=== PATIENT | female | born 1970 | race Asian ===

== ENCOUNTER 2024-03-04 10:25 | Outpatient (CLI) | payer BC, SELFPAY ==
--- NOTE | 2024-03-04 10:40 | ECG_ITS ---
Test Date: 2024-03-04 10:51:18 Measurements Intervals [place] Rate: 53 P: 43 VA: 144 QRS: 61 QRSD: 84 T: 56 QT: 415 QTc: 390 Interpretive Statements SINUS BRADYCARDIA MINIMAL VOLTAGE CRITERIA FOR LVH, CONSIDER NORMAL VARIANT [MEETS CRITERIA IN ONE OF: R(aVL), S(V1), R(V5), R(V5/V6)+S(V1)] No previous ECG available for comparison Electronically Signed On 03-05-2024 11:52:29 WARP SPLITTER by Tj Bojorquez M.D.
== END 2024-03-04 10:26 | disposition home or self-care (01) ==
LOC: ANHSURGERY 10:32
PROVIDERS: PCP Family Medicine; Visit Provider Obstetrics & Gynecology
DX: R94.31 Abnormal electrocardiogram [ECG] [EKG] (principal); I10 Essential (primary) hypertension
CPT/HCPCS: 93005

== ENCOUNTER 2024-03-08 00:26 | Day surgery (SDC) | payer BC, SELFPAY ==
--- NOTE | 2024-03-01 10:40 | PC.NURSE ---
Report to the Outpatient Waiting Room, entrance under the green pavilion located off [facility], at time _6 AM on date _03/08/24 . Planned Procedure Time: _7:30 AM .? Time changes happen often and if your time is changed the preop area will call you the afternoon before. - You and your visitor will be asked to self-screen and do not enter if you have any COVID symptoms. Please call surgeon if you need to reschedule. - A mask is optional within the hospital at this time. Patients may have clear liquids (water, carbonated beverages, clear teas, apple juice) until 3 hours prior to surgery (4:30 AM)with a maximum of 20 ounces. - No food from midnight until time of surgery and no smoking. This includes no chewing gum, candy or mints. - Take only the following medications with a SIP of water on the morning of surgery: __PROPRANOLOL DO NOT STOP ANY OF YOUR OTHER PRESCRIPTION MEDICATIONS PRIOR TO SURGERY EXCEPT THE FOLLOWING Medications to discontinue per physician ALL VITAMINS AND SUPPLEMENTS 3 DAYS PRE OP Date to take last dose____03/04/24 Please no make-up, nail danish, hairspray, perfume, deodorant, or body powder the day of surgery.? No jewelry (including any body piercings) or valuables the day of surgery, leave them at home.? Please take a shower or bath the night before, or the morning of, surgery with an antibacterial soap.? Wear comfortable, loose fitting clothing.? Children are encouraged to wear pajamas. - Jewelry must be removed prior to entering the operating room.? Rings and piercings that are not removed may be cut off. - The hospital will not accept responsibility for valuables.? - Please leave all valuables, including medications, at home the day of surgery. If you are going home after surgery, a licensed driver material handler must drive you home.? - NO public transportation without another adult if you receive anesthesia. - We recommend that an adult stay with you for 24 hours following discharge. - We also recommend that you do not drive, make important decision, drink alcoholic beverages, or take any drugs that were not prescribed by your health care provider for at least 24 hours after your discharge time. For Pediatric surgeries, we recommend two adults accompany the child home. Follow any additional instructions given to you from your surgeon. Telephone instructions given to __PATIENT and asked if any additional questions and then verbalized understanding. Patient advised to call surgeon office or pre surgery nurse liaison [phone] if any additional questions.
[2024-03-01 10:55] VITALS: BMI 24.7
[2024-03-08] VITALS (9 sets, daily range): BP systolic 125–177; BP diastolic 77–90; PULSE 51–79; RESP 12–18; TEMP 36.3; O2SAT 100
[2024-03-08] MEDS: LACTATED RINGERS 1,000 ML 30 ML IV CONT (06:16)
[2024-03-08] MEDS: KETOROLAC 15 MG/ML VIAL (*BKC) IV PUSH (06:58)
[2024-03-08] MEDS: ACETAMINOPHEN 500 MG TABLET 1000 MG PO (06:58)
--- NOTE | 2024-03-08 07:24 | WPDHPUPDATE1 ---
History and Physical Update Update Date/Time: 03/08/24 07:24 History and Physical has been reviewed, including an updated exam of the patient. There are NO changes in the patient's condition. Risks, benefits, and alternatives have been discussed and questions answered. Patient agrees to proceed with procedure.
--- NOTE | 2024-03-08 07:27 | P.HP_ITS ---
H&P: HPI History of Present Illness Date/Time: 03/08/24 07:27 Chief Complaint: History of breast cancer Narrative: this patient is a 53-year-old female with a history of breast cancer that is hormonally sensitive. We agreed to perform laparoscopic bilateral salpingo- oophorectomy. She understands ris The patient understands the details of the procedure. The procedure has been explained in detail. She understands the risks. She understands that injuries may occur that result in hospitalization, more surgery, and severe illness. She understands risk of hemorrhage and infection. She denies any chest pain or shortness of breath. She denies any nausea, vomiting, fever, chills. Review of Systems Review of Systems: All systems reviewed & are unremarkable except as noted in HPI and below Constitutional: Constitutional: Denies chills, Denies fatigue, Denies fever(s) and Denies weakness Eyes: Eyes: Denies blurry vision, Denies change in vision, Denies loss of peripheral vision, Denies loss of vision, Denies other visual disturbances and Denies eye pain ENT: Denies vertigo, Denies dizziness, Denies hearing loss, Denies mouth pain, Denies nasal obstruction, Denies neck mass and Denies neck pain Cardiovascular: Cardiovascular: Denies chest pain, Denies diaphoresis, Denies syncope, Denies leg edema and Denies dyspnea Respiratory: Respiratory: Denies chest congestion, Denies cough, Denies hemoptysis, Denies dyspnea and Denies wheezing Gastrointestinal: Gastrointestinal: Denies abdominal pain, Denies constipation, Denies diarrhea, Denies nausea and Denies vomiting Genitourinary: Genitourinary: Denies hematuria, Denies change in libido, Denies nocturia, Denies genital lesions, Denies flank pain and Denies urinary urgency Musculoskeletal: Musculoskeletal: Denies abnormal gait, Denies back pain, Denies myalgias, Denies arthralgias, Denies joint swelling, Denies muscle weakness and Denies neck pain Integumentary/Breasts: Skin/Breast: Denies swelling, Denies breast pain, Denies breast mass, Denies dry skin, Denies nipple discharge, Denies unusual bruising and Denies jaundice Neurologic: Denies Neuro-related abnormal movements, Denies Abnormal speech present, Denies abnormal gait, Denies behavioral changes, Denies confusion, Denies vertigo, Denies dizziness, Denies syncope, Denies loss of vision, Denies memory loss, Denies convulsions and Denies weakness Psychiatric: Psychiatric: Denies abnormal sleep pattern, Denies behavioral changes, Denies change in libido, Denies confusion, Denies depression, Denies anhedonia and Denies memory loss Endocrine: Endocrine: Reports no additional endocrine complaints, Denies change in libido and Denies fatigue Hematologic/Lymphatic: Hematologic/Lymphatic: Reports no additional hematologic/lymphatic complaints Allergic/Immunologic: Allergic/Immunologic: Reports no additional allergic/immunologic complaints and Denies wheezing PMFSH Social History Social History Smoking status: Never smoker Living arrangements: with family Spiritual care concerns: No Meds Home Medications and Allergies Home Medications ?Medication ?Instructions ?Recorded ?Confirmed ?Type atorvastatin 10 mg tablet 10 mg PO DAILY 03/01/24 03/08/24 History cholecalciferol (vitamin D3) 125 5,000 unit PO DAILY 03/01/24 03/08/24 History mcg (5,000 unit) capsule letrozole 2.5 mg tablet 2.5 mg PO DAILY 03/01/24 03/08/24 History omega 7-hwi-xep-fish oil 60 mg-90 1 cap PO DAILY 03/01/24 03/08/24 History mg-500 mg capsule (Fish Oil) propranolol 10 mg tablet 10 mg PO Q12H 03/01/24 03/08/24 History Allergies Allergy/AdvReac Type Severity Reaction Status Date / Time No Known Allergies Allergy Verified 03/01/24 10:35 Vital Signs Vital Signs - 24 hr 03/08/24 07:17 Temperature 97.3 F L Pulse Rate 58 L Respiratory Rate 16 Blood Pressure 138/86 Pulse Oximetry 100 Oxygen Delivery Room Air Exam Const: General: cooperative, healthy appearing, comfortable and no acute distress Orientation/consciousness: oriented to person, oriented to place and oriented to time HENMT: Head: normal to inspection Ears: external ears normal Face/Nose/Sinus: Normal external nose present and normal facial exam Face and sinus: normal facial exam Eyes: General: appearance normal, both eyes and all related structures Neck: Neck: normal visual inspection, trachea midline and supple Resp: Auscultation: clear to auscultation bilaterally, no crackles, no rales, no rhonchi and no wheezes Cardio: Rate: regular rate Rhythm: regular rhythm Heart sounds: no click, no murmurs and no rubs GI: GI Palp: No abdominal tenderness, No Soft to palpation, No Tenderness to palpation present (GI) and No Palpable mass present Auscultation: normal bowel sounds Skin: General skin exam: normal color and no rashes or lesions noted Neuro: General: oriented to person, oriented to place and oriented to time Extrem: General: normal to inspection, no joint enlargement, no clubbing, cyanosis or edema, no pedal edema and no calf tenderness Psych: Appearance: grossly normal Mental Status: mental status grossly normal Speech and movement: Normal speech and movement present Assessment and Plan Assessment and plan (1) Breast cancer: Code(s): C50.919 - Malignant neoplasm of unspecified site of unspecified female breast Status: Acute Plan 53-year-old female who has a history of breast cancer. Agreed to perform laparoscopic bilateral salpingo-oophorectomy. She understands risks, benefits, and alternatives. She has completed the informed consent process is ready to proceed.
--- NOTE | 2024-03-08 07:30 | P.PNAN_ITS ---
Anes - Initial Pre Proc Eval Procedure: Operation Date: 03/08/24 07:30 Proposed Procedures p Laparoscopic Bilateral Salpingo oophorectomy - Shyam Adrian MD Date/Time: 03/08/24 07:30 Surgeon: Shyam Adrian MD Pre Op Diagnosis: hx malignant neoplasm of breast Patient Data Age: 53 Gender: F Height: 1.55 m Weight: 61.4 kg Last Vital Signs Temp 97.3 F L 03/08/24 07:17 Pulse 58 L 03/08/24 07:17 Resp 16 03/08/24 07:17 BP 138/86 03/08/24 07:17 Pulse Ox 100 03/08/24 07:17 O2 Del Method Room Air 03/08/24 07:17 Allergies Allergy/AdvReac Type Severity Reaction Status Date / Time No Known Allergies Allergy Verified 03/08/24 07:30 Home Medications ?Medication ?Instructions ?Recorded ?Confirmed ?Type atorvastatin 10 mg tablet 10 mg PO DAILY 03/01/24 03/08/24 History cholecalciferol (vitamin D3) 125 5,000 unit PO DAILY 03/01/24 03/08/24 History mcg (5,000 unit) capsule letrozole 2.5 mg tablet 2.5 mg PO DAILY 03/01/24 03/08/24 History omega 7-vrx-sif-fish oil 60 mg-90 1 cap PO DAILY 03/01/24 03/08/24 History mg-500 mg capsule (Fish Oil) propranolol 10 mg tablet 10 mg PO Q12H 03/01/24 03/08/24 History ECG: [place] [address] [place] [address] Electrocardiograph Report Signed Patient: Angie Reed : 1970 MR#: [id number] Age: 53 Acct:[id number] Loc: [facility] ADM Date: 03/04/24Attending Dr: Shyam Adrian M.D. Ordering Physician: Juventino Hilliard II, MD Date of Service: 03/04/24 Procedure(s): CA 12 lead EKG Accession Number(s): [id number] cc: ~ Test Date: 2024-03-04 10:51:18 Measurements Intervals [place] Rate: 53 P: 43 [place]: 144 QRS: 61 QRSD: 84 T: 56 QT: 415 QTc: 390 Interpretive Statements SINUS BRADYCARDIA MINIMAL VOLTAGE CRITERIA FOR LVH, CONSIDER NORMAL VARIANT [MEETS CRITERIA IN ONE OF: R(aVL), S(V1), R(V5), R(V5/V6)+S(V1)] No previous ECG available for comparison Electronically Signed On 03-05-2024 11:52:29 TANK CAR MECHANIC by Tj Bojorquez M.D. Dictated By: Tj Bojorquez MD 03/04/24 1051 Signed By: <Electronically signed by Tj Bojorquez MD in OV> 03/05/24 1152 : patient denies Patient hx anesthesia problems: none Family hx anesthesia problems: none Prior surgeries: Mastectomy Results Review: All pre-operative results and documents have been reviewed as part of the pre- operative evaluation. [facility] Past Medical History Medical History Hyperlipidemia Hypertension Surgical History Surgical History H/O mastectomy Social History Social History Smoking status: Never smoker Living arrangements: with family Spiritual care concerns: No Anes - Eval Final PreProcedure Day of Procedure 03/08/24 07:30 Patient weight: normal Lungs: clear to auscultation Airway: Mallampati scale class II Last oral intake: 4 hours ASA classification: II Emergent: no Anesthetic plan: proceed Anesthesia type and monitoring: general ETT Results Review: All pre-operative results and documents have been reviewed as part of the pre- operative evaluation. Informed Consent: The patient's anesthetic plan and its attendant risks and benefits were discussed with the patient/family/POA. Questions were solicited and answers provided to the satisfaction of the patient/family/POA.
--- NOTE | 2024-03-08 08:34 | W.PM.PROC2 ---
Procedure Note - Detailed Date of Procedure 03/08/24 Pre-op Diagnosis hx malignant neoplasm of breast Post-op Diagnosis Same Procedure Performed Laparoscopic bilateral salpingo-oophorectomy Surgeon Shyam Adrian MD Anesthesia General Indications Pelvic pain Findings Normal-appearing uterus tubes and ovaries. Description of Procedure The patient was taken to the operating room. She was prepped and draped in the dorsal lithotomy position after induction general anesthesia. A 5 mm incision was made with a scalpel on the abdominal skin in the left upper quadrant of the abdomen. A 5 mm trocar was inserted into the intra-abdominal cavity under direct visualization the scope. In the same fashion a 11 mm left lower quadrant trocar was inserted and a 11 mm infraumbilical trocar was inserted. In a bilateral fashion the infundibular ligaments were cauterized and transected with LigaSure cautery after examining the ureters bilaterally. The paraovarian tissue was cauterized and transected in a stepwise fashion around the ovary to the mesosalpinx. In a stepwise fashion the mesosalpinx was cauterized and transected in a stepwise fashion to the uterine cornua where the fallopian tube was cauterized transected. Both ovaries were placed in endobag and taken out the left lower quadrant trocar site The pneumoperitoneum was reduced. The trocars were removed. Skin was closed with subcuticular 4 micro. The patient's incisions were covered with Dermabond. She was taken recovery room in stable condition. Sponge lap and needle counts were correct x2. Complications No immediate complications Condition Stable Disposition Same day
[2024-03-08] MEDS: oxyCODONE HCL (*CRX) 5 MG TAB IR PO (09:43)
--- OUTSIDE RECORDS SUMMARY | 2024-03-15 01:47 | XMS_ITS | Encounter Summary ---
Author Organization [facility] [employer] [facility] Care Team Providers Care Machine Shop Apprentice Name Role Phone Laurence Luque MD Unavailable + [phone] Clemencia Bennett MD Unavailable [phone] Iveth Guzman MD Primary Care Provider + [phone] Sony Mcpherson MD Unavailable [phone] Jose R Pearson MD Unavailable [phone] Encounter Details Date Type Department Care Team (Latest Contact Info) Description 01/27/2024 Travel Social History Tobacco Use Types Packs/Day Years Used Date Smoking Tobacco: Never Smokeless Tobacco: Never Alcohol Use Standard Drinks/Week Comments Yes 0 (1 standard drink = 0.6 oz pur e alcohol) rarely PHQ-2 Answer Date Recorded PHQ-2 Score 0 11/28/2018 Education Answer Date Recorded What is the highest level of school you have completed or the highest degree you have received? 12th grade 08/09/2020 Comments No Sex and Gender Information Value Date Recorded Sex Assigned at Not on file Legal Sex Female 8:38 PM CDT Gender Identity Not on file Sexual Orientation Not on file documented as of this encounter Plan of Treatment Upcoming Encounters Date Type Department Care Team (Late st Contact Info) Description 03/23/2024 1:00 PM DERMATOLOGY TECHNICIAN [facility]ointment [facility] [address] [place] [address] Jose R Pearson MD [address] [place] [address] Discharge Disposition: Discharged to home or Selfcare 03/23/2024 2:30 PM DERMATOLOGY TECHNICIAN Appointment [facility] [address] [place] [address] Jose R Pearson MD [address] [place] [address] Discharge Disposition: Discharged to home or Selfcare 03/30/2024 10:00 AM DERMATOLOGY TECHNICIAN Office Visit [facility] Oncology Services [address] [place] [address] Jose R Pearson MD [address] [place] [address] Discharge Disposition: Discharged to home or Selfcare 03/30/2024 10:30 AM DERMATOLOGY TECHNICIAN Lab [facility]cology Services [address] [place] [phone] Discharge Disposition: Discharged to home or Selfcare 03/31/2024 1:00 PM DERMATOLOGY TECHNICIAN Clinical Support [facility] [address] [place] [address] Jose R Pearson MD [address] [place] [address] Discharge Disposition: Discharged to home or Selfcare 04/28/2024 1:30 PM DERMATOLOGY TECHNICIAN Clinical Support [facility] Oncology Services [address] [place] [phone] Discharge Disposition: Discharged to home or Selfcare documented as of this encounter Goals Goal Patient Goal Type Associated Problems Recent Progress Patient-Stated? Author Exercise 3x per week (30 min per time) Exercise Chica Louis MD documented as of this encounter Visit Diagnoses Not on filedocumented in this encounter Additional Health Concerns Assessment Noted Time PHQ-9 Depression Total Score: 0 04/01/19 20 9:00 AM DERMATOLOGY TECHNICIAN documented as of this encounter Care Teams Machine Shop Apprentice Relationship Specialty Start Date End Date Iveth Guzman MD [address] [place] [address] PCP - General Family Medicine 05/02/23 Laurence Luque MD [address] [phone] Consulting Physician General Surgery 02/01/15 Clemencia Bennett MD [address] [place] [address] Family Medicine 01/30/18 Sony Mcpherson MD [address] [address] Consulting Physician General Surgery 09/08/23 Jose R Pearson MD [address] [place] [address] Consulting Physician Medical Oncology 10/02/23 documented as of this encounter
--- OUTSIDE RECORDS SUMMARY | 2024-03-15 01:47 | XMS_ITS | Encounter Summary ---
Author Organization [facility] Address [address] [place] [address] Phone Care Team Providers Care Senior Market Research Analyst Name Role Phone Laurence Luque MD Unavailable Clemencia Bennett MD Unavailable Iveth Guzman MD Primary Care Provider [phone] Sony Mcpherson MD Unavailable Jose R Pearson MD Unavailable [phone] Encounter Details Date Type Department Care Team (Latest Contact Info) Description 01/27/2024 1:00 PM CLOTHING BUSHELER Clinical Support [facility] Oncology Services [address] [place] [address] Jose R Pearson MD [address] [place] [address] Breast cancer metastasized to axillary lymph node, right (HCC) (Primary Dx); 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 Discussed labs needed for the day, verbalized understanding. Labs drawn from LAC, pt tolerated well, gauze and coband placed. Pt ambulated out of lab room in stable condition. HING BUSHELER documented in this encounter Plan of Treatment Upcoming Encounters Date Type Department Care Team (Late st Contact Info) Description 03/23/2024 1:00 PM CLOTHING BUSHELER [facility] [address] [place] [address] Jose R Pearson MD [address] [place] [address] Discharge Disposition: Discharged to home or Selfcare 03/23/2024 2:30 PM CLOTHING BUSHELER [facility] [address] [place] [address] Jose R Pearson MD [address] [place] [address] Discharge Disposition: Discharged to home or Selfcare 03/30/2024 10:00 AM CLOTHING BUSHELER [facility] [address] [place] [address] Jose R Pearson MD [address] [place] [address] Discharge Disposition: Discharged to home or Selfcare 03/30/2024 10:30 AM CLOTHING BUSHELER [facility] [address] [place] [address] Discharge Disposition: Discharged to home or Selfcare 03/31/2024 1:00 PM CLOTHING BUSHELER Clinical Support [facility] Oncology Services [address] [place] [address] Jose R Pearson MD [address] [place] [address] Discharge Disposition: Discharged to home or Selfcare 04/28/2024 1:30 PM CLOTHING BUSHELER Clinical Support [facility] Oncology Services [address] [place] [address] Discharge Disposition: Discharged to home or Selfcare documented as of this encounter Goals Goal Patient Goal Type Associated Problems Recent Progress Patient-Stated? 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) COMPLETE BLOOD COUNT (CBC) WITH DIFF STAT 01/27/2024 1:02 PM CLOTHING BUSHELER Breast cancer metastasized to axillary lymph node, 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) documented in this encounter Results * (ABNORMAL) CBC WITH AUTO DIFFERENTIAL (01/27/2024 1:02 PM CLOTHING BUSHELER) WBC 5.28 4.00 - 12.00 10(3)/mcL 01/27/2024 1:43 PM CLOTHING BUSHELER [facility] RBC 3.46(L) 3.80 - 5.30 10(6)/mcL 01/27/2024 1:43 PM [facility] HEMOGLOBIN (HGB) 11.1(L) 12.0 - 15.8 g/dL 01/27/2024 1:43 PM [facility] HEMATOCRIT (HCT) 35.1(L) 36.0 - 47.0 % 01/27/2024 1:43 PM [facility] MCV 101.4(H) 82.0 - 96.0 fL 01/27/2024 1:43 PM [facility] MCH 32.1 26.0 - 34.0 pg 01/27/2024 1:43 PM [facility] MCHC 31.6 31.0 - 36.0 g/dL 01/27/2024 1:43 PM [facility] PLATELET COUNT 165 140 - 440 10(3)/mcL 01/27/2024 1:43 PM [facility] RDW 14.5 11.8 - 15.5 % 01/27/2024 1:43 PM [facility] MPV 10.5 9.7 - 12.4 fL 01/27/2024 1:43 PM [facility] NEUTROPHILS 37.1(L) 47.0 - 73.0 % 01/27/2024 1:43 PM [facility] LYMPHOCYTES 43.6(H) 18.0 - 42.0 % 01/27/2024 1:43 PM [facility] MONOCYTES 6.8 4.0 - 12.0 % 01/27/2024 1:43 PM [facility] EOSINOPHILS 12.1(H) 0.0 - 5.0 % 01/27/2024 1:43 PM [facility] BASOPHILS 0.4 0.0 - 1.0 % 01/27/2024 1:43 PM [facility] ABSOLUTE NEUTROPHILS 1.96 1.60 - 7.70 10(3)/mcL 01/27/2024 1:43 PM CLOTHING BUSHELER [facility] ABSOLUTE LYMPHOCYTES 2.30 1.30 - 3.20 10(3)/[facility] 01/27/2024 1:43 PM CLOTHING BUSHELER [facility] ABSOLUTE MONOCYTES 0.36 0.20 - 1.00 10(3)/[facility] 01/27/2024 1:43 PM CLOTHING BUSHELER [facility] ABSOLUTE EOSINOPHIL 0.64(H) 0.00 - 0.40 10(3)/[facility] 01/27/2024 1:43 PM CLOTHING BUSHELER [facility] ABSOLUTE BASOPHILS 0.02 0.00 - 0.10 10(3)/[facility] 01/27/2024 1:43 PM CLOTHING BUSHELER [facility] NRBC PER 100 WBC 0 01/27/20 1:43 PM [facility] Blood Venipuncture / Unknown 01/27/2024 1:02 PM CLOTHING BUSHELER 01/27/2024 1:02 PM [facility] Jose R Pearson MD HEMATOLOGY ORDERABLES Fi nal Result [facility] [address] [place] [address] * (ABNORMAL) CMP (COMPREHENSIVE METABOLIC PANEL) (01/27/2024 1:02 PM CLOTHING BUSHELER) SODIUM 147(H) 136 - 145 mmol/L 01/27/2024 2:00 PM [facility] POTASSIUM 3.6 3.5 - 5.1 mmol/L 01/27/2024 2:00 PM [facility] CHLORIDE 111(H) 98 - 107 mmol/L 01/27/2024 2:00 PM [facility] CO2, VENOUS 27 22 - 30 mmol/L 01/27/2024 2:00 PM [facility] ANION GAP 12.6 <18.0 mmol/L 01/27/2024 2:00 PM [facility] GLUCOSE 116(H) 70 - 99 mg/dL 01/27/2024 2:00 PM [facility] BUN 7(L) 10 - 20 mg/dL 01/27/2024 2:00 PM [facility] CREATININE, BLOOD 0.74 0.60 - 1.00 mg/dL 01/27/2024 2:00 PM [facility] BUN/CREATININE RATIO 9(L) 12 - 20 ratio 01/27/2024 2:00 PM [facility] TOTAL PROTEIN 6.1(L) 6.3 - 8.2 g/dL 01/27/2024 2:00 PM [facility] ALBUMIN 3.8 3.5 - 5.0 g/dL 01/27/2024 2:00 PM [facility] A/G RATIO 1.7 1.0 - 2.2 01/27/2024 2:00 PM [facility] CALCIUM 9.7 8.7 - 10.5 mg/dL 01/27/2024 2:00 PM [facility] T BILI 0.5 0.2 - 1.2 mg/dL 01/27/2024 2:00 PM [facility] SGOT (AST) 17 5 - 34 U/L 01/27/2024 2:00 PM [facility] SGPT (ALT) 12 0 - 55 U/L 01/27/2024 2:00 PM [facility] ALKALINE PHOSPHATASE 52 40 - 150 U/L 01/27/2024 2:00 PM [facility] IS THE PATIENT REQUIRED TO BE FASTING? No 01/27/2024 2:00 PM [facility] GFR, ESTIMATED >60 >=60 01/27/2024 2:00 PM [facility] Comment: Creatinine Clearance is the preferred criteria for selecting drug dose adjustments in renally impaired patients. ??The GFR is provided as additional pertinent clinical information. GFR is reported in mL/min/1.73 sq m. Calculation based on the Chronic Kidney Disease Epidemiology Collaboration (CKD- EPI) equation refit without adjustment for race. GFR, EST. >60 >=60 11/12/2 024 2:00 PM CLOTHING BUSHELER [facility] GFR, EST. 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) documented in this encounter Administered Medications Active Administered Medications - up to 3 most recent administrations Medication Order MAR Action Action Date Dose Rate Site Heparin Na (Pork) Lock Flsh PF SOLN 50 Units 50 Units, Intravenous, PRN, Starting on Fri01/27/24 at 1244, Until Discontinued, Line CareIndications:Breast cancer metastasized to axillary lymph node, right (HCC) documented in this encounter Additional Health Concerns Assessment Noted Time PHQ-9 Depression Total Score: 0 04/01/19 20 9:00 AM CLOTHING BUSHELER documented as of this encounter Care Teams Senior Market Research Analyst Relationship Specialty Start Date End Date Iveth Guzman MD [address] [place] [address] PCP - General Family Medicine 05/02/23 Laurence Luque MD [address] [facility] [address] [address] Consulting Physician General Surgery 02/01/15 Clemencia Bennett MD [address] [place] [address] Family Medicine 01/30/18 Sony Mcpherson MD #[address] [address] Consulting Physician General Surgery 09/08/23 Jose R Pearson MD [address] [place] [address] Consulting Physician Medical Oncology 10/02/23 documented as of this encounter
--- OUTSIDE RECORDS SUMMARY | 2024-03-15 01:47 | XMS_ITS ---
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 Dysgeusia 12/16/2023 Metastasis from HER2 positive carcinoma of breas t 09/05/2023 Mass overlapping multiple quadrants of right sandeep ast 08/26/2023 Lung nodule 09/30/2019 Hyperlipidemia 09/30/2019 IFG (impaired fasting glucose) 09/30/2019 Allergic rhinitis 01/30/2018 Obesity (BMI 30.0-34.9) 01/27/2017 History of bilateral mastectomy 01/27/2017 Breast cancer metastasized to axillary lymph nod e, right 02/21/2016 Essential hypertension 06/01/2015 Gastroesophageal reflux disease 06/01/2015 Mitral valve prolapse Current Treatment and Therapy Plans [facility]: [facility] (DOCEtaxel / CARBOplatin (AUC 6) + Trastuzumab + Pertuzumab) - 21 Day Cycle - Breast* Plan Start Date:09/23/2023 Plan Provider:Jose R Pearson MD Linked Problems Breast cancer metastasized t o axillary lymph node, right (HCC)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) Treatment Medications Current Day (Day 1 , Cycle 10 - Planned for 03/31/2024) Next Day (Day 1, Cycle 11 - Planned for 04/21/2024) CARBOplatin (PARAPLATIN) christy mo infusion (by AUC)DOCEtaxel (TAXOTERE) using 10mg/mL chemo infusionpertuzumab (PERJETA) infusiontrastuzumab-qyyp (TRAZIMERA) infusion pertuzumab (PERJETA) 420 mg in sodium chloride 0.9 % 250 mL infusiontrastuzumab-QYYP (TRAZIMERA) 378 mg in sodium chloride 0.9 % 250 mL infusion pertuzumab (PERJETA) 420 mg in sodium chloride 0.9 % 250 mL infusiontrastuzumab-QYYP (TRAZIMERA) 378 mg in sodium chloride 0.9 % 250 mL infusion SUPPORT - DENOSUMAB (X-GEVA) every 6 weeks* Plan Start Date:10/14/2023 Plan Provider:Jose R Pearson MD Linked Problems Breast cancer metastasized t o axillary lymph node, right (HCC)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 Past Treatment and Therapy Plans ONCOLOGY SUPPORTIVE CARE Plan Name Start Date Discontinue Date Treatment Medications Discontinue Reason Plan Provider Cycles SUPPORT - Pegfilgrastim 3 Week 4 09/24/2023 No medications scheduled. Plan Clean Up Jose R Pearson MD Treatment not started ONCOLOGY TREATMENT Plan Name Start Date Discontinue Date Treatment Medications Discontinue Reason Plan Provider Cycles [facility]: [facility] (DOCEtaxel / CARBOplatin (AUC 6) + Trastuzumab + Pertuzumab) - 21 Day Cycle - Breast 4 09/05/2023 CARBOplatin (PARAPLATIN) chemo infusion (by AUC)pertuzumab (PERJETA) infusiontrastu zumab-qyyp (TRAZIMERA) infusion Therapy Complete Jose R Pearson MD Treatment not started Lifetime Dose Tracking * Chemical Lifetime Dose Automatic Entry Manual Entr y Carboplatin 917.62 mg/m2 (1,593.9 mg) 917.62 mg/m2 (1 ,593.9 mg) 0 mg/m2 (0 mg) Resolved Problems Problem Noted Date Diagnosed Date Resolved Date Chemotherapy induced diarrhea 12/16/2023 01/27/2024 Chemotherapy-induced nausea 12/16/2023 01/27/2024 Cancer of right female breast 06/01/2015 02/21/2016
--- OUTSIDE RECORDS SUMMARY | 2024-03-15 01:47 | XMS_ITS | Encounter Summary ---
Author Organization [facility] Address [address] [place] [address] Phone Care Team Providers Care Dye Room Helper Name Role Phone Laurence Luque MD Unavailable Clemencia Bennett MD Unavailable [phone] Iveth Guzman MD Primary Care Provider [phone] Sony Mcpherson MD Unavailable Jose R Pearson MD Unavailable [phone] Encounter Details Date Type Department Care Team (Late st Contact Info) Description 02/05/2024 Documentation Only [facility] Oncology Services [address] [place] [address] JoseR Pearson MD [address] [place] [address] Social History Tobacco Use Types Packs/Day Years [...] st Contact Info) Description 03/23/2024 1:00 PM VEGETABLE SPECKER Appointment [facility] Cardiology Services 1 [facility] [address] Jose R Pearson MD [address] [place] [address] Discharge Disposition: Discharged to home or Selfcare 03/23/2024 2:30 PM VEGETABLE SPECKER Appointment [facility] [address] [place] [address] Jose R Pearson MD [address] [place] [address] Discharge Disposition: Discharged to home or Selfcare 03/30/2024 10:00 AM VEGETABLE SPECKER Office Visit [facility] Oncology Services [address] [place] [address] Jose R Pearson MD [address] [place] [address] Discharge Disposition: Discharged to home or Selfcare 03/30/2024 10:30 AM VEGETABLE SPECKER [facility] [address] [place] [address] Discharge Disposition: Discharged to home or Selfcare 03/31/2024 1:00 PM VEGETABLE SPECKER Clinical Support [facility] Oncology Services [address] [place] [address] Jose R Pearson MD [address] [place] [address] Discharge Disposition: Discharged to home or Selfcare 04/28/2024 1:30 PM VEGETABLE SPECKER Clinical Support [facility] Oncology Services [address] [place] [address] Discharge Disposition: Discharged to home or Selfcare documented as of this encounter Goals Goal Patient Goal Type Associated Problems Recent Progress Patient-Stated? Author Exercise 3x per week (30 min per time) Exercise No Chica Saldana MD documented as of this encounter Visit Diagnoses Not on filedocumented in this encounter Additional Health Concerns Assessment Noted Time PHQ-9 Depression Total Score: 0 04/01/19 20 9:00 AM VEGETABLE SPECKER documented as of this encounter Care Teams Dye Room Helper Relationship Specialty Start Date End Date Iveth Guzman MD [address] [place] [address] PCP - General Family Medicine 05/02/23 Laurence Luque MD #[address] [address] Consulting Physician General Surgery 02/01/15 Clemencia Bennett MD [address] [place] [address] Family Medicine 01/30/18 Sony Mcpherson MD #[address] [address] Consulting Physician General Surgery 09/08/23 Jose R Pearson MD [address] [place] [address] Consulting Physician Medical Oncology 10/02/23 documented as of this encounter
--- OUTSIDE RECORDS SUMMARY | 2024-03-15 01:47 | XMS_ITS | Encounter Summary ---
Author Organization [facility] [employer] [facility] Care Team Providers Care Retail Product Demo Specialist Name Role Phone Laurence Luque MD Unavailable [phone] Clemencia Bennett MD Unavailable [phone] Iveth Guzman MD Primary Care Provider + [phone] Sony Mcpherson MD Unavailable Jose R Pearson MD Unavailable [phone] Encounter Details Date Type Department Care Team (Latest Contact Info) Description 01/28/2024 Travel Social History Tobacco Use Types Packs/Day [...] st Contact Info) Description 03/23/2024 1:00 PM FIRER LOCOMOTIVE CRANE [facility] [address] [place] [address] Jose R Pearson MD [address] [place] [address] Discharge Disposition: Discharged to home or Selfcare 03/23/2024 2:30 PM FIRER LOCOMOTIVE CRANE Appointment [facility] [address] [place] [address] Jose R Pearson MD [address] [place] [address] Discharge Disposition: Discharged to home or Selfcare 03/30/2024 10:00 AM FIRER LOCOMOTIVE CRANE Office Visit [facility] Oncology Services [address] [place] [address] Jose R Pearson MD [address] [place] [address] Discharge Disposition: Discharged to home or Selfcare 03/30/2024 10:30 AM FIRER LOCOMOTIVE CRANE Lab [facility] Oncology Services [address] [place] [address] Discharge Disposition: Discharged to home or Selfcare 03/31/2024 1:00 PM FIRER LOCOMOTIVE CRANE Clinical Support [facility] Oncology Services [address] [place] [address] Jose R Pearson MD [address] [place] [address] Discharge Disposition: Discharged to home or Selfcare 04/28/2024 1:30 PM FIRER LOCOMOTIVE CRANE Clinical Support [facility] Oncology Services [address] [place] [address] Discharge Disposition: Discharged to home or Selfcare documented as of this encounter Goals Goal Patient Goal Type Associated Problems Recent Progress Patient-Stated? Author Exercise 3x per week (30 min per time) Exercise Chica Louis MD documented as of this encounter Visit Diagnoses Not on filedocumented in this encounter Additional Health Concerns Assessment Noted Time PHQ-9 Depression Total Score: 0 04/01/19 20 9:00 AM FIRER LOCOMOTIVE CRANE documented as of this encounter Care Teams Retail Product Demo Specialist Relationship Specialty Start Date End Date Iveth Guzman MD [address] [place] [address] PCP - General Family Medicine 05/02/23 Laurence Luque MD #[address] [address] Consulting Physician General Surgery 02/01/15 Clemencia Bennett MD [address] [place] [address] Family Medicine 01/30/18 Sony Mcpherson MD #[address] [address] Consulting Physician General Surgery 09/08/23 Jose R Pearson MD [address] [place] [address] Consulting Physician Medical Oncology 10/02/23 documented as of this encounter
--- OUTSIDE RECORDS SUMMARY | 2024-03-15 01:47 | XMS_ITS | Encounter Summary ---
Author Organization [facility] Address [address] 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) Jose R Pearson MD [address] [place] [address] Phone: tel: fax: [facility] Oncology Services [address] [place] [address] Phone: tel: fax: Referral ID Status Reason Start Date Expiration Date V isits Requested Visits Authorized [id number] Authorized 10/15/2023 1 8 Encounter Details Date Type Department Care Team (Latest Contact Info) Description 03/03/2024 1:30 PM WOODWORKING MACHINE SETTER Clinical Support [facility] Oncology Services [address] [place] [id number] Jose R Pearson MD [address] [place] [address] Breast cancer metastasized to axillary lymph node, [...] on file documented as of this encounter Last Filed Vital Signs Vital Sign Reading Time Taken Comments Blood Pressure 135/84 03/03/2024 1:28 PM WOODWORKING MACHINE SETTER Pulse 70 03/03/2024 1:28 PM WOODWORKING MACHINE SETTER Temperature 36.5 ??C (97.7 ??F) 03/03/2024 1:28 PM CS T Respiratory Rate 16 03/03/2024 1:28 PM WOODWORKING MACHINE SETTER Oxygen Saturation 98% 03/03/2024 1:28 PM WOODWORKING MACHINE SETTER Inhaled Oxygen Concentration - - Weight - - Height - - Body Mass Index - - documented in this encounter Miscellaneous Notes * Interdisciplinary - Lalita Lee, RN - 03/03/2024 1:30 PM CST Patient to treatment bay. VS obtained. Patient medicated by injection per MD orders and tolerated well. Site secured with bandaid. Patient left facility in safe disposition. WORKING MACHINE SETTER documented in this encounter Plan of Treatment Upcoming Encounters Date Type Department Care Team (Late st Contact Info) Description 03/23/2024 1:00 PM WOODWORKING MACHINE SETTER Appointment [facility] Cardiology Services [address] [place] [address] Jose R Pearson MD [address] [place] [address] Discharge Disposition: Discharged to home or Selfcare 03/23/2024 2:30 PM WOODWORKING MACHINE SETTER Appointment [facility] [address] [place] [address] Jose R Pearson MD [address] [place] [address] Discharge Disposition: Discharged to home or Selfcare 03/30/2024 10:00 AM WOODWORKING MACHINE SETTER Office Visit [facility] Oncology Services [address] [place] [address] Jose R Pearson MD [address] [place] [address] Discharge Disposition: Discharged to home or Selfcare 03/30/2024 10:30 AM WOODWORKING MACHINE SETTER Lab [facility] Oncology Services [address] [place] [address] Discharge Disposition: Discharged to home or Selfcare 03/31/2024 1:00 PM WOODWORKING MACHINE SETTER Clinical Support [facility] Oncology Services [address] [place] [address] Jose R Pearson MD [address] [place] [address] Discharge Disposition: Discharged to home or Selfcare 04/28/2024 1:30 PM WOODWORKING MACHINE SETTER Clinical Support [facility] Oncology Services [address] [place] [address] Discharge Disposition: Discharged to home or Selfcare documented as of this encounter Goals Goal Patient Goal Type Associated Problems Recent Progress Patient-Stated? 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) documented in this encounter Administered Medications Inactive Administered Medications - up to 3 most recent administrations Medication Order MAR Action Action Date Dose Rate Site denosumab (XGEVA) injection 120 mg 120 mg, Subcutaneous, ONCE, 1 dose, On Fri03/03/24 at 1330, Administer to upper arm, upper thigh, or abdomen.Indications:Breas t cancer metastasized to axillary lymph node, right (HCC),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) Given 03/03/2024 1:30 PM WOODWORKING MACHINE SETTER 120 mg Left Lateral Upper Arm documented in this encounter Additional Health Concerns Assessment Noted Time PHQ-9 Depression Total Score: 0 04/01/19 20 9:00 AM WOODWORKING MACHINE SETTER documented as of this encounter Care Teams Credit Administration Manager Relationship Specialty Start Date End Date Iveth Guzman MD [address] [facility] [facility] [place] [address] PCP - General Family Medicine 05/02/23 Laurence Luque MD [address] [address] Consulting Physician General Surgery 02/01/15 Clemencia Bennett MD [address] [place] [address] Family Medicine 01/30/18 Sony Mcpherson MD [address] [address] Consulting Physician General Surgery 09/08/23 Jose R Pearson MD [address] [place] [address] Consulting Physician Medical Oncology 10/02/23 documented as of this encounter
--- OUTSIDE RECORDS SUMMARY | 2024-03-15 01:47 | XMS_ITS | Encounter Summary ---
Author Organization [facility] Address [address] [place] [address] Phone Care Team Providers Care Peoplesoft Name Role Phone Laurence Luque MD Unavailable Clemencia Bennett MD Unavailable Iveth Guzman MD Primary Care Provider [phone] Sony Mcpherson MD Unavailable Jose R Pearson MD Unavailable Encounter Details Date Type Department Care Team (Late st Contact Info) Description 02/20/2024 Telephone [facility] On[facility] Services [address] [place] [address] Jose R Pearson MD [address] [place], [place] [id number] Social History Tobacco Use Types Packs/Day Years [...] as of this encounter Miscellaneous Notes * Telephone Encounter - Justen Godoy RN - 02/20/2024 12:12 PM CST Chemo follow up call made. No complaints at this time. HARDENER documented in this encounter Plan of Treatment Upcoming Encounters Date Type Department Care Team (Late st Contact Info) Description 03/23/2024 1:00 PM CASE HARDENER Appointment [facility] Cardiology Services [address] [place] [address] Jose R Pearson MD [address] [place] [address] Discharge Disposition: Discharged to home or Selfcare 03/23/2024 2:30 PM CASE HARDENER Appointment [facility] [address] [place] [address] Jose R Pearson MD [address] [place] [address] Discharge Disposition: Discharged to home or Selfcare 03/30/2024 10:00 AM CASE HARDENER Office Visit [facility] Oncology Services [address] [place] [address] Jose R Pearson MD [address] [place] [address] Discharge Disposition: Discharged to home or Selfcare 03/30/2024 10:30 AM CASE HARDENER Lab [facility] Oncology Services [address] [place] [address] Discharge Disposition: Discharged to home or Selfcare 03/31/2024 1:00 PM CASE HARDENER Clinical Support [facility] Oncology Services [address] [place] [address] Jose R Pearson MD [address] [place] [address] Discharge Disposition: Discharged to home or Selfcare 04/28/2024 1:30 PM CASE HARDENER Clinical Support [facility] Oncology Services [address] [place] [address] Discharge Disposition: Discharged to home or Selfcare [...] Total Score: 0 04/01/19 20 9:00 AM CASE HARDENER documented as of this encounter Care Teams Peoplesoft Relationship Specialty Start Date End Date Iveth Guzman MD [address] [place] [address] PCP - General Family Medicine 05/02/23 Laurence Luque MD [address] [address] Consulting Physician General Surgery 02/01/15 Clemencia Bennett MD [address] [place] [address] Family Medicine 01/30/18 Sony Mcpherson MD [address] [address] Consulting Physician General Surgery 09/08/23 Jose R Pearson MD [address] [place] [address] Consulting Physician Medical Oncology 10/02/23 documented as of this encounter
--- OUTSIDE RECORDS SUMMARY | 2024-03-15 01:47 | XMS_ITS | Encounter Summary ---
Author Organization [facility] Address [address] [place] [address] Phone Care Team Providers Care Plate Maker Zinc Name Role Phone Laurence Luque MD Unavailable Clemencia Bennett MD Unavailable [phone] Iveth Guzman MD Primary Care Provider [phone] Sony Mcpherson MD Unavailable Jose R Pearson MD Unavailable Encounter Details Date Type Department Care Team (Late st Contact Info) Description 01/09/2024 Telephone [facility] On[facility] Services [address] [place] [address] Jose R Pearson MD [address] [place], [place] [id number] Social History Tobacco Use Types Packs/Day Years [...] encounter Miscellaneous Notes * Telephone Encounter - Lalita Lee RN - 01/09/2024 1:18 PM CDT FU called placed to pt. LVM. documented in this encounter Plan of Treatment Upcoming Encounters Date Type Department Care Team (Late st Contact Info) Description 03/23/2024 1:00 PM VENEER STACKER Appointment [facility] Cardiology Services [address] [place] [address] Jose R Pearson MD [address] [place] [address] Discharge Disposition: Discharged to home or Selfcare 03/23/2024 2:30 PM VENEER STACKER Appointment [facility] [address] [place] [address] Jose R Pearson MD [address] [place] [address] Discharge Disposition: Discharged to home or Selfcare 03/30/2024 10:00 AM VENEER STACKER Office Visit [facility] Oncology Services [address] [place] [address] Jose R Pearson MD [address] [place] [address] Discharge Disposition: Discharged to home or Selfcare 03/30/2024 10:30 AM VENEER STACKER Lab [facility] Oncology Services [address] [place] [address] Discharge Disposition: Discharged to home or Selfcare 03/31/2024 1:00 PM VENEER STACKER Clinical Support [facility] Oncology Services [address] [place] [address] Jose R Pearson MD [address] [place] [address] Discharge Disposition: Discharged to home or Selfcare 04/28/2024 1:30 PM VENEER STACKER [facility] [address] [place] [address] Discharge Disposition: Discharged to home or Selfcare [...] Total Score: 0 04/01/19 20 9:00 AM VENEER STACKER documented as of this encounter Care Teams Plate Maker Zinc Relationship Specialty Start Date End Date Iveth Guzman MD [address] [place] [address] PCP - General Family Medicine 05/02/23 Laurence Luque MD [address] [address] Consulting Physician General Surgery 02/01/15 Clemencia Bennett MD [address] [place] [address] Family Medicine 01/30/18 Sony Mcpherson MD [address] [address] Consulting Physician General Surgery 09/08/23 Jose R Pearson MD [address] [place] [address] Consulting Physician Medical Oncology 10/02/23 documented as of this encounter
--- OUTSIDE RECORDS SUMMARY | 2024-03-15 01:47 | XMS_ITS | Continuity of Care Document ---
Author Organization [facility] [place] Address [address] [place] [address] Care Team Providers Care Bench Chemist Name Role Phone NIKKIRAISASANDRA TIDWELL Primary Care Provider Assessment Encounter Date Assessment Date Assessment LastModified by Organization Details LastModified Time 02/17/2024 02/17/2024 Annual gynecological exam performed. Patient will come back in a year unless there are new symptoms. [email or web address] Not available 02/17/2024 11:09:26 Plan of Treatment Reminders Order Date Submit Date Provider Last Modified By Organization Details Last Modified Time Details Appointments SURG POST OP 2023 11:15A Nemesio ADRIAN MD Not available Not available Not available Lab None recorded. Referral None recorded. Procedures None recorded. Surgeries salpingo- oophorect rocío, laparosco pic (SURG) 2023 024 [facility], [facility], [address], 03/08/2024 09:48:26 Imaging None recorded. Medication Orders None recorded. Patient TargetsNo targets recorded. Patient InstructionsNo instructions recorded. Reason for Referral None Reported. Problems Name Problem SNOMED Code Status Onset Date Resolution Date Notes Provider Name and Address Organization Details Recorded Time Irregula r intermen strual bleeding 88228704 Completed 201411/10/2020 Irregula r bleeding between periods; Recorded Elsewher e: No Locat ion: Avinash chester [facility] S ource: EHR Director Of Medical Services prerna: N Practi ce ID: 0001 Eitan lable Time: 10:30:00 AM Pauline Genesis [facility] 1 14:46:32 Hypertro phy of uterus 962852448 Active 2016 Enlarged uterus;R ecorded Elsewher e: No Locat ion: [facility] S ource: EHR Director Of Medical Services prerna: N Practi ce ID: 0001 Eitan lable Time: 11:30:00 AM Not Available [facility] 0 17:22:[address] Concept Completed 201911/10/2020 Encounte r for general adult medical exam with abnormal finding; Recorded Elsewher e: No Locat ion: [facility] Source: EHR Director Of Medical Services prerna: N Practi ce ID: 0001 Eitan lable Time: 08:30:00 AM Pauline Hurtado [facility] 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 1 14:46:55 Disorder of uterus 02284721 Active 2019 Disorder of uterus;R ecorded Elsewher e: No Locat ion: [facility] S ource: EHR Director Of Medical Services prerna: N Practi ce ID: 0001 Eitan lable Time: 09:00:00 AM Not Available [facility] 0 17:22:34 Screenin g for malignan t neoplasm of rectum Completed 201511/10/2020 Encounte r for screenin g for malignan t neoplasm of rectum;R ecorded Elsewher e: No Locat ion: [facility] S ource: EHR Director Of Medical Services prerna: N Practi ce ID: 0001 Eitan lable Time: 03:45:00 PM Pauline Hurtado [facility] 14:47:00 Female genital organ symptoms [id number] Completed 201411/10/2020 Vaginal dryness; Recorded Elsewher e: No Locat ion: Avinash chester [facility] S ource: EHR Director Of Medical Services prerna: N Al ce ID: 0001 Eitan lable Time: 10:30:00 AM Pauline [facility] 14:46:26 Pregnanc y test negative 803903408 Completed 201411/10/2020 Pregnanc y examinat ion or test, negative result;R ecorded Elsewher e: No [facility] S ource: EHR Director Of Medical Services prerna: Isaura Mcfaddenti ce ID: 0001 Eitan lable Time: 01:30:00 PM Pauline [facility] 14:47:11 Body mass index 25-29 - overweig ht 911571824 Completed 201511/10/2020 Body mass index (BMI) 29.0-29. 9, adult;Re corded Elsewher e: No [facility]at [facility] S ource: EHR Director Of Medical Services prerna: Isaura Melendez ce ID: 0001 Eitan lable Time: 03:45:00 PM Pauline [facility] 14:46:14 Screenin g for malignan t neoplasm of cervix Completed 201611/10/2020 Screenin g for malignan t neoplasm s of the cervix;R ecorded Elsewher e: No [facility] S ource: EHR Director Of Medical Services prerna: Isaura Mcfaddenti ce ID: 0001 Eitan lable Time: 11:30:00 AM Pauline [facility] 14:47:06 Bleeding 127085845 Completed 201911/10/2020 Abnormal uterine bleeding ;Recorde d Elsewher e: No Locat ion: Avinash chester [facility] Source: EHR Director Of Medical Services prerna: Isaura Mcfaddenti ce ID: 0001 Eitan lable Time: 08:30:00 AM Pauline mcnamara [facility] 1 14:46:29 Pelvic and perineal pain 360283829 Active 2019 Pelvic pain;Rec orded Elsewher e: No Locat ion: [facility] Source: EHR Director Of Medical Services prerna: N Practi ce ID: 0001 Eitan lable Time: 08:30:00 AM Not Available [facility] 0 17:22:35 Postmeno pausal bleeding 31135196 Completed 201911/10/2020 Postmeno pausal bleeding ;Recorde d Elsewher e: No Locat ion: [facility] S ource: EHR Director Of Medical Services prerna: N Practi ce ID: 0001 Eitan lable Time: 11:00:00 AM Pauline mcnamara [facility] 1 14:47:24 Cyst of ovary 34876847 Active 2014 Ovarian cyst;Rec orded Elsewher e: No Locat ion: [facility] S ource: EHR Director Of Medical Services prerna: N Practi ce ID: 0001 Eitan lable Time: 03:00:00 PM Not Available [facility] 0 17:22:35 Urinary tract infectio us disease 93609830 Completed 201911/10/2020 Urinary tract infectio n, site not specifie d;Practi ce ID: 0001 Pauline mcnamara [facility] 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 14:46:58 Amenorrh ea 21832137 Completed 201611/10/2020 Amenorrh ea, unspecif ied;Agus rded Elsewher e: No Locat ion: [facility] S ource: EHR Director Of Medical Services prerna: N Practi ce ID: 0001 Eitan lable Time: 11:30:00 AM Pauline Hurtado [facility] 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 14:46:41 Tara infectio n of genital region Completed 201511/10/2020 Candidia sis of vulva and vagina;R ecorded Elsewher e: No Locat ion: [facility] S ource: EHR Director Of Medical Services prerna: Isaura Melendez ce ID: 0001 Eitan lable Time: 03:30:00 PM Pauline Hurtado [facility] 14:46:18 Postoper ative follow-u p visit Completed 201411/10/2020 Follow-u p examinat ion, followin g unspecif ied surgery; Recorded Elsewher e: No Locat ion: [facility] S ource: [facility] prerna: Isaura Mcfaddenti ce ID: 0001 Eitan lable Time: 03:30:00 PM Pauline Hurtado [facility] 14:47:20 Mucous polyp of cervix 79738381 Completed 201411/10/2020 Mucous polyp of cervix;R ecorded Elsewher e: No Locat ion: [facility] S ource: EHR Director Of Medical Services prerna: N Bogdanti ce ID: 0001 Eitan lable Time: 10:30:00 AM Pauline Hurtado [facility] 14:46:36 Pre-surg matthew evaluati on Completed 201411/10/2020 Other specifie d pre-oper ative examinat ion;Agus rded Elsewher e: No Locat ion: Meaganmoisés henrik [facility] S ource: EHR Director Of Medical Services prerna: N Practi ce ID: 0001 Eitan lable Time: 05:00:00 PM Pauline Hurtado [facility] 14:47:18 Screenin g for malignan t neoplasm of colon Completed 201011/10/2020 Special screenin g for malignan t neoplasm s, colon;Pr actice ID: 0001 Pauline mcnamara [facility] 14:47:03 Menstrua tion finding Active 2014 EXCESSIV E MENSTRUA TION;Pra ctice ID: 0001 Not Available [facility] 0 17:22:39 Problem Notes None recorded. Procedures Surgical History Date Name Laterality Status Provider Name and Address Organization Details Recorded Time 03/08/20 24 SALPINGO-OOPHORE CTOMY, LAPAROSCOPIC (SURG) completed Brianna Angulo [facility] 03/08/2024 09:49:06 11/22/19 23 Date of Last Pap Smear completed [facility] 02/17/2024 11:13:26 09/26/[address] [facility] 11/10/2020 14:41:49 03/17/[address] [facility] 11/10/2020 14:49:58 06/30/19 14 Date of Last Mammogram completed [facility] 11/10/2020 14:41:49 03/17/19 14 Bilateral Mastectomy completed Lisa Darrick [facility] 02/17/2024 11:15:[address] [facility] 11/10/2020 14:42:[address] [facility] 11/10/2020 14:49:36 Hysteroscopy completed Pauline Genesis [facility] 11/21/2022 11:59:46 Imaging Results None recorded. Procedure Notes None recorded. Medical Equipment None Reported. Allergies No known drug allergies Medications Name Sig Start Date Stop Date Status Note LastModified by Organization Details LastModified Time atorvasta tin 10 mg tablet TAKE 1 TABLET BY MOUTH ONCE DAILY active Not Available Not Available No t Available hydrocodo ne 5 mg-acetam inophen 325 mg tablet take 2 tablets by oral route 2 hours before procedur e active Not Available Not Available No t Available ondansetr on HCl 8 mg tablet TAKE 1 TABLET BY MOUTH EVERY 8 HOURS NEEDED FOR NAUSEA -1ST LINE. 02/16 completed Not Available Not Available Not Available olanzapin e 5 mg tablet TAKE 1 TABLET BY MOUTH NIGHTLY FOR 3 NIGHTS, STARTING THE DAY AFTER CHEMOTHE RAPY. 21 DAY CYCLE. 02/16 completed Not Available Not Available Not Available phentermi ne 15 mg capsule TK 1 C PO D 11/21 completed Not Available Not Available Not Available Diflucan 150 mg tablet take 1 tablet by oral route once 11/16 completed Prescrib ed Elsewher e: No Locat ion: [facility] M odify By: kevin Wyman r DateTime : 03/27/19 16 03:30:00 PM Not Available Not Available Not Available phentermi ne 37.5 mg tablet TAKE 1 TABLET BY MOUTH EVERY AM BEFORE BREAKFAS T 11/21 completed Not Available Not Available Not Available prochlorp erazine maleate 10 mg tablet TAKE 1 TABLET BY MOUTH EVERY 6 HOURS NEEDED FOR NAUSEA -2ND LINE 02/16 completed Not Available Not Available Not Available triamcino lone acetonide 0.1 % topical cream 11/21 completed Not Available Not Available Not Available Macrobid 100 mg capsule take 1 capsule by oral route every 12 hours with food 04/20 completed Prescrib ed Elsewher e: No Locat ion: [facility] Modify By: kevin Wyman r DateTime : 04/13/19 20 08:30:00 AM Not Available Not Available Not Available Celebrex 200 mg capsule take 1 capsule by oral route the night before and 2 capsules by mouth the morning of procedur e 05/05 completed Prescrib ed Elsewher e: No Locat ion: Avani henrik [facility] odify By: smcthu Kandivika r DateTime : 04/20/19 09:00:00 AM Not Available Not Available Not Available propranol ol 10 mg tablet active Not Available Not Available Not Available lorazepam 0.5 mg tablet TAKE 1 TABLET BY MOUTH EVERY 8 HOURS NEEDED FOR ANXIETY 02/16 completed Not Available Not Available Not Available betametha sone valerate 0.1 % topical cream apply by topical route every day a thin layer to the affected area(s) 04/13 completed Prescrib ed Elsewher e: No [facility] By: kpanyik Kandivika r DateTime : 03/27/19 16 03:30:00 PM Not Available Not Available Not Available dexametha sone 4 mg tablet TAKE 2 TABLETS BY MOUTH TWICE DAILY FOR 3 DAYS, STARTING THE DAY BEFORE DOCETAXE L. FOR A 21 DAY CYCLE 02/16 completed Not Available Not Available Not Available diazepam 10 mg tablet take 1 tablet by oral route one hour before procedur e 05/05 completed Prescrib ed Elsewher e: No Locat ion: Avinash [facility] odify By: smcthu Kandivika r DateTime : 04/20/19 09:00:00 AM Not Available Not Available Not Available epinephri ne 0.3 mg/0.3 mL injection , auto-inje ctor active Not Available Not Available Not Available letrozole 2.5 mg tablet TAKE 1 TABLET BY MOUTH ONCE DAILY active Not Available Not Available No t Available methylpre dnisolone 4 mg tablets in a dose pack 11/21 completed Not Available Not Available Not Available progester one micronize d 100 mg capsule take 1 capsule by oral route once daily 11/21 completed Prescrib ed Elsewher e: No [facility] By: laxmi freeman DateTime : 05/07/19 11:02:23 AM Not Available Not Available Not Available metoprolo l tartrate 25 mg tablet TAKE 1 TABLET BY MOUTH TWICE DAILY active Not Available Not Available No t Available multivita min active Not Available Not Available Not Available Soltamox 20 mg/10 mL oral solution 04/13 completed Prescrib ed Elsewher e: Yes Loca tion: Avinash chester [facility] odify By: kpanyik Zamzam r DateTime : 07/13/19 15 10:30:00 AM Not Available Not Available Not Available Vicodin 5 mg-300 mg tablet 2 tabs po 2 hours before the procedur e 10/04 completed Prescrib ed Elsewher e: No Locat ion: Avinash chester [facility] odify By: amcorky [place] ncounter DateTime : 09/13/19 15 09:24:10 AM Not Available Not Available Not Available Kapspargo Sprinkle 25 mg capsule,e xtended release take 1 capsule by oral route every day 11/10 completed Prescrib ed Elsewher e: Yes Loca tion: [facility] odify By: smcaley Zamzam jones DateTime : 04/20/19 20 09:00:00 AM Not Available Not Available Not Available Vitals Date Recorded Body height Body mass index (BMI) Body weight Systolic blood pressure Diastolic blood pressure Provider Name and Address Organization Details Last Updated DateTime 02/17/2024 154.94 cm 25.3 kg/m2 56425.38 g 136 mm[Hg] 83 mm[Hg] Lisa Hollingsworth [facility] 4 11:10:18 Social History Question Answer Notes LastModified by Organizat ion Details LastModified Time Tobacco Smoking Status Never Smoker Pauline Genesis mcnamara, [facility] 11/21/2022 11:59:42 Do You Have An Advance Directive? No Information n ot available 11/10/2020 What Is Your Level Of Alcohol Consumption? Occasional Information not available 11/10/2020 How Many Years Have You Consumed Alcohol? 5 Information not available 11/10/2020 Are You Blind Or Do You Have Difficulty Seeing? No Information n ot available 11/10/2020 What Is Your Level Of Caffeine Consumption? None Information not available 11/10/2020 How Much Tobacco Do You Chew? None Information not available 11/21/2022 In The 14 Days Before Symptom Onset, Have You Had Close Contact With A Laboratory-confirm ed COVID-19 While That Case Was Ill? No Information n ot available 11/10/2020 In The 14 Days Before Symptom Onset, Have You Had Close Contact With A Person Who Is Under Investigation For COVID-19 While That Person Was Ill? No Information not available 11/10/2020 Have You Been To An Area Known To Be High Risk For COVID-19? No Information not available 11/10/2020 Are You Deaf Or Do You Have Serious Difficulty Hearing? No Information not available 11/10/2020 What Type Of Diet Are You Following? REGULAR Information n ot available 11/10/2020 What Is The Highest Grade Or Level Of School You Have Completed Or The Highest Degree You Have Received? 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 No Information not available 11/10/2020 Do You Use Protection During Sex? No Information not available 11/10/2020 Do You Use Your Seat Belt Or Car Seat Routinely? Yes Information not available 11/10/2020 Do You Have Smoke And Carbon Monoxide Detectors In Your Home? Yes Information not available 11/10/2020 How Much Tobacco Do You Smoke? No Information not available 11/21/2022 Do You Feel Stressed (tense, Restless, Nervous, Or Anxious, Or Unable To Sleep At Night)? [id number] Information not available 11/10/2020 Do You Use Any Illicit Or Recreational Drugs? No Information not available 11/10/2020 Do You Use Sunscreen Routinely? Yes Information not available 11/10/2020 Have You Used IV Drugs? No Information not available 11/10/2020 Sex: Unknown Functional Status Question Answer Note LastModified by Organization D etails LastModified Time Are you able to walk? YESWOREST Information not available 11/10/2020 What is your exercise level? Moderate Information not available 11/10/2020 Mental Status None recorded. Family History Relationship Description Onset Age of this Age Resolved Age Notes LastModified by Organization Details LastModified Time Mother Hypertensive disorder Not available 2020 14:48:54 Notes:Mother: Hypertension Medical History Condition Response Breast Cancer Y Hypertension Y Gynecological History Statement/Question Response Date of Last Mammogram 06/29/2013 Date of LMP 03/17/2017 On BCP's at Conception? N N Was last menstrual period normal Y STIs/STDs N HPV Vaccine N Current Control Method Tubal Ligat ion Age at First Child 16 If Post Menopausal, Age at Menopause 49 Date of control 1970 Sexually Active? N Menses Monthly N Age of first menstrual cycle 11 Date of Last Pap Smear 11/21/2022 Sexual Problems? N LMP Unknown 09/25/2018 N Obstetrics History GPAL:G 3 P 0 0 0 3 Type Value Living 3 Total 3 Past Encounters Encounter ID Performer Location Encounter Start Date Encounter Closed Date Diagnosis/Indication Diagnosis SNOMED-CT Code Diagnosis ICD10 Code [id number] [place] [address] [address] 02/17/2024 10:51:19 02/17/2024 12:34:02 Gynecologic examination 01594797 Z01.419 Z11.51 History of malignant neoplasm of breast 783493861 Z85.3 Health Concerns Section Related Observation LastModified by Organization Detai ls LastModified Time None Recorded Concern Status LastModified by Organization Details LastModified Time None Recorded Payers Encounter Date Sequence Insurance Name Policy Number Policy Oscar Covered Member ID Oscar Member ID Guarantor Name 02/17/2024 1 [place] [id number] Isaías Reed [id number] Angie Reed Notes Date Note Type Note Provider Name and Address Organization Details Recorded Time 02/17/2024 text/html Annual GYNReported bypatient.History :no gynecologic complaints Urinary symptoms:No hematuria Vulva:No genital lesion Vagina:Normal vaginal discharge Sexual complaints:No sexual complaints; No pain during intercourse Menopausal Symptoms:No menopausal symptoms Psychological symptoms:No depression; No anxiety Preventive measures:Encourag e self breast examination; Encourage regular exercise Shyam Adrian MD [address], [place], [address], [place] [facility] 02/17/2024 12:18:10 OBGyn Episode No OBEpisode recorded.
--- OUTSIDE RECORDS SUMMARY | 2024-03-15 01:47 | XMS_ITS | Encounter Summary ---
Author Organization [facility] Address [address] 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..] Sign Reading Time Taken Comments Blood Pressure 170/81 01/28/2024 1:15 PM DRINKING WATER TECHNICIAN Pulse 51 01/28/2024 1:15 PM DRINKING WATER TECHNICIAN Temperature 36.1 ??C (97 ??F) 01/28/2024 1:15 PM DRINKING WATER TECHNICIAN Respiratory Rate 16 01/28/2024 1:15 PM DRINKING WATER TECHNICIAN Oxygen Saturation 99% 01/28/2024 1:15 PM DRINKING WATER TECHNICIAN Inhaled Oxygen Concentration - - Weight - - Height - - Body Mass Index - - documented in this encounter Miscellaneous Notes * Interdisciplinary - Lalita Lee RN - 01/28/2024 1:00 PM CST Patient to treatment bay. VS obtained. Pt port accessed per company policy, flushed without difficulty. Site secured with dressing. Pt medicated without incident. At completion of infusion, site flushed with NS and heparin and port de-accessed. Site secured with bandaid. Pt left in safe disposition. KING WATER TECHNICIAN documented in this encounter Plan of Treatment Upcoming Encounters Date Type Department Care Team (Late st Contact Info) Description 03/23/2024 1:00 PM DRINKING WATER TECHNICIAN Appointment [facility] Cardiology Services [address] [place] [address] Jose R Pearson MD [address] [place] [address] Discharge Disposition: Discharged to home or Selfcare 03/23/2024 2:30 PM DRINKING WATER TECHNICIAN Appointment [facility] [address] [facility] [place] [address] Jose R Pearson MD [address] [place] [address] Discharge Disposition: Discharged to home or Selfcare 03/30/2024 10:00 AM DRINKING WATER TECHNICIAN Office Visit [facility] Oncology Services [address] [place] [address] Jose R Pearson MD [address] [place] [address] Discharge Disposition: Discharged to home or Selfcare 03/30/2024 10:30 AM DRINKING WATER TECHNICIAN Lab [facility] Oncology Services [address] [place] [address] Discharge Disposition: Discharged to home or Selfcare 03/31/2024 1:00 PM DRINKING WATER TECHNICIAN Clinical Support [facility] Oncology Services [address] [place] [address] Jose R Pearson MD [address] [place] [address] Discharge Disposition: Discharged to home or Selfcare 04/28/2024 1:30 PM DRINKING WATER TECHNICIAN Clinical Support [facility] Oncology Services [address] [place] [address] Discharge Disposition: Discharged to home or Selfcare [...] MAR Action Action Date Dose Rate Site 0.9 % sodium chloride solution at 50 mL/hr, Intravenous, ONCE, 1 dose, On Fri01/28/24 at 1400, 250mL bagIndications:Breast cancer metastasized to axillary lymph node, right (HCC) New Bag 01/28/2024 1:56 PM DRINKING WATER TECHNICIAN 50 mL/h r Heparin Na (Pork) Lock Flsh PF SOLN 50 Units 50 Units, Intravenous, PRN, Starting on Fri01/28/24 at 1318, Until Fri01/28/24 at 1858, Line Care, Line care per [employer] [employer].Indications:Breast cancer metastasized to axillary lymph node, right (HCC),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 64.4 kg Order-specific weight), Intravenous, ONCE, 1 dose, On Fri01/28/24 at 1400, Administered by IV infusion; loading doses are infused over 90 minutes; maintenance doses may be infused over 30 minutes if tolerated. Do not administer with D5W. Do not administer IV push or by rapid bolus. 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) New Bag 01/28/2024 2:42 PM DRINKING WATER TECHNICIAN 378 mg documented in this encounter Additional Health Concerns Assessment Noted Time PHQ-9 Depression Total Score: 0 04/01/19 20 9:00 AM DRINKING WATER TECHNICIAN documented as of this encounter Care Teams Diversified Crops I Farmworker Relationship Specialty Start Date End Date Iveth Guzman MD [address] [place] [address] PCP - General Family Medicine 05/02/23 Laurence Luque MD [address] [address] Consulting Physician General Surgery 02/01/15 Clemencia Bennett MD [address] [place] [address] Family Medicine 01/30/18 Sony Mcpherson MD [address] [address] Consulting Physician General Surgery 09/08/23 Jose R Pearson MD [address] [place] [address] Consulting Physician Medical Oncology 10/02/23 documented as of this encounter
--- OUTSIDE RECORDS SUMMARY | 2024-03-15 01:47 | XMS_ITS | Encounter Summary ---
Author Organization [facility] [employer] [facility] Care Team Providers Care Aviation Electrical Technician Name Role Phone Laurence Luque MD Unavailable + [phone] Clemencia Bennett MD Unavailable [phone] Iveth Guzman MD Primary Care Provider + [phone] Sony Mcpherson MD Unavailable [phone] Jose R Pearson MD Unavailable [phone] Encounter Details Date Type Department Care Team (Latest Contact Info) Description 03/03/2024 Travel Social History Tobacco Use Types Packs/Day [...] st Contact Info) Description 03/23/2024 1:00 PM CATCHER HELPER Appointment [facility] [address] [place] [phone] Jose R Pearson MD [address] [place] [address] Discharge Disposition: Discharged to home or Selfcare 03/23/2024 2:30 PM CATCHER HELPER Appointment [facility] [address] [place] [address] Jose R Pearson MD [address] [place] [address] Discharge Disposition: Discharged to home or Selfcare 03/30/2024 10:00 AM CATCHER HELPER Office Visit [facility] Oncology Services [address] [place] [address] Jose R Pearson MD [address] [place] [address] Discharge Disposition: Discharged to home or Selfcare 03/30/2024 10:30 AM CATCHER HELPER Lab [facility] Oncology Services [address] [place] [address] Discharge Disposition: Discharged to home or Selfcare 03/31/2024 1:00 PM CATCHER HELPER Clinical Support [facility] Oncology Services [address] [place] [address] Jose R Pearson MD [address] [place] [address] Discharge Disposition: Discharged to home or Selfcare 04/28/2024 1:30 PM CATCHER HELPER Clinical Support [facility] Oncology Services [address] [place] [address] Discharge Disposition: Discharged to home or Selfcare documented as of this encounter Goals Goal Patient Goal Type Associated Problems Recent Progress Patient-Stated? Author Exercise 3x per week (30 min per time) Exercise Chica Louis MD documented as of this encounter Visit Diagnoses Not on filedocumented in this encounter Additional Health Concerns Assessment Noted Time PHQ-9 Depression Total Score: 0 04/01/19 20 9:00 AM CATCHER HELPER documented as of this encounter Care Teams Aviation Electrical Technician Relationship Specialty Start Date End Date Iveth Guzman MD [address] [place] [address] PCP - General Family Medicine 05/02/23 Laurence Luque MD [address] [address] Consulting Physician General Surgery 02/01/15 Clemencia Bennett MD [address] [place] [address] Family Medicine 01/30/18 Sony Mcpherson MD [address] [address] Consulting Physician General Surgery 09/08/23 Jose R Pearson MD [address] [place] [address] Consulting Physician Medical Oncology 10/02/23 documented as of this encounter
--- OUTSIDE RECORDS SUMMARY | 2024-03-15 01:47 | XMS_ITS | Encounter Summary ---
Author Organization [facility] [employer] [facility] Care Team Providers Care Switchboard Installer Name Role Phone Laurence Luque MD Unavailable + [phone] Clemencia Bennett MD Unavailable [phone] Iveth Guzman MD Primary Care Provider + [phone] Sony Mcpherson MD Unavailable [phone] Jose R Pearson MD Unavailable [phone] Encounter Details Date Type Department Care Team (Latest Contact Info) Description 02/18/2024 Travel Social History Tobacco Use Types Packs/Day [...] st Contact Info) Description 03/23/2024 1:00 PM BOX SPRING UPHOLSTERER [facility] [address] [place] [address] Jose R Pearson MD [address] [place] [address] Discharge Disposition: Discharged to home or Selfcare 03/23/2024 2:30 PM BOX SPRING UPHOLSTERER Appointment [facility] [address] [place] [address] Jose R Pearson MD [address] [place] [address] Discharge Disposition: Discharged to home or Selfcare 03/30/2024 10:00 AM BOX SPRING UPHOLSTERER Office Visit [facility] Oncology Services [address] [place] [address] Jose R Pearson MD [address] [place] [address] Discharge Disposition: Discharged to home or Selfcare 03/30/2024 10:30 AM BOX SPRING UPHOLSTERER Lab [facility] Oncology Services [address] [place] [address] Discharge Disposition: Discharged to home or Selfcare 03/31/2024 1:00 PM BOX SPRING UPHOLSTERER Clinical Support [facility] Oncology Services [address] [place] [address] Jose R Pearson MD [address] [place] [address] Discharge Disposition: Discharged to home or Selfcare 04/28/2024 1:30 PM BOX SPRING UPHOLSTERER Clinical Support [facility] Oncology Services [address] [place] [address] Discharge Disposition: Discharged to home or Selfcare documented as of this encounter Goals Goal Patient Goal Type Associated Problems Recent Progress Patient-Stated? Author Exercise 3x per week (30 min per time) Exercise Chica Louis MD documented as of this encounter Visit Diagnoses Not on filedocumented in this encounter Additional Health Concerns Assessment Noted Time PHQ-9 Depression Total Score: 0 04/01/19 20 9:00 AM BOX SPRING UPHOLSTERER documented as of this encounter Care Teams Switchboard Installer Relationship Specialty Start Date End Date Iveth Guzman MD [address] [place] [address] PCP - General Family Medicine 05/02/23 Laurence Luque MD [address] [address] Consulting Physician General Surgery 02/01/15 Clemencia Bennett MD [address] [place] [address] Family Medicine 01/30/18 Sony Mcpherson MD #[address] [address] Consulting Physician General Surgery 09/08/23 Jose R Pearson MD [address] [place] [address] Consulting Physician Medical Oncology 10/02/23 documented as of this encounter
--- OUTSIDE RECORDS SUMMARY | 2024-03-15 01:47 | XMS_ITS | Encounter Summary ---
Author Organization [facility] [employer] [facility] Care Team Providers Care Filter Washer Name Role Phone Laurence Luque MD Unavailable + [phone] Clemencia Bennett MD Unavailable [phone] Iveth Guzman MD Primary Care Provider + [phone] Sony Mcpherson MD Unavailable [phone] Jose R Pearson MD Unavailable [phone] Encounter Details Date Type Department Care Team (Latest Contact Info) Description 02/04/2024 Travel Social History Tobacco Use Types Packs/Day [...] st Contact Info) Description 03/23/2024 1:00 PM BEAD PICKER [facility] Services [address] [place] [address] Jose R Pearson MD [address] [place] [address] Discharge Disposition: Discharged to home or Selfcare 03/23/2024 2:30 PM BEAD PICKER Appointment [facility] [address] [place] [address] Jose R Pearson MD [address] [place] [address] Discharge Disposition: Discharged to home or Selfcare 03/30/2024 10:00 AM BEAD PICKER Office Visit [facility] Oncology Services [address] [place] [address] Jose R Pearson MD [address] [place] [address] Discharge Disposition: Discharged to home or Selfcare 03/30/2024 10:30 AM BEAD PICKER Lab [facility] Oncology Services [address] [place] [address] Discharge Disposition: Discharged to home or Selfcare 03/31/2024 1:00 PM BEAD PICKER Clinical Support [facility] Oncology Services [address] [place] [address] Jose R Pearson MD [address] [place] [address] Discharge Disposition: Discharged to home or Selfcare 04/28/2024 1:30 PM BEAD PICKER Clinical Support [facility] Oncology Services [address] [place] [address] Discharge Disposition: Discharged to home or Selfcare documented as of this encounter Goals Goal Patient Goal Type Associated Problems Recent Progress Patient-Stated? Author Exercise 3x per week (30 min per time) Exercise Chica Louis MD documented as of this encounter Visit Diagnoses Not on filedocumented in this encounter Additional Health Concerns Assessment Noted Time PHQ-9 Depression Total Score: 0 04/01/19 20 9:00 AM BEAD PICKER documented as of this encounter Care Teams Filter Washer Relationship Specialty Start Date End Date Iveth Guzman MD [address] [place] [address] PCP - General Family Medicine 05/02/23 Laurence Luque MD [address] [address] Consulting Physician General Surgery 02/01/15 Clemencia Bennett MD [address] [place] [address] Family Medicine 01/30/18 Sony Mcpherson MD #[address] [address] Consulting Physician General Surgery 09/08/23 Jose R Pearson MD [address] [place] [address] Consulting Physician Medical Oncology 10/02/23 documented as of this encounter
--- OUTSIDE RECORDS SUMMARY | 2024-03-15 01:47 | XMS_ITS | Data Portability ---
Author Organization [facility] [place] Address [address] [place] [address] Care Team Providers Care Chemist Instrumentation Name Role Phone SANDRA KIRK Primary Care Provider [phone] Assessment Encounter Date Assessment Date Assessment LastModified by Organization Details LastModified Time 11/10/2020 11/10/2020 Annual gynecological exam performed. Patient will come back in a year unless there are new symptoms. Not available 11/10/2020 14:31:58 11/21/2022 11/21/2022 Annual gynecological exam performed. Patient will come back in a year unless there are new symptoms. Not available 11/21/2022 11:59:30 02/17/2024 02/17/2024 Annual gynecological exam performed. Patient [...] oophorect rocío, laparosco pic (SURG) [address] [address], [place], [address], 03/08/2024 09:48:26 Imaging None recorded. Medication Orders None recorded. Patient TargetsNo targets recorded. Patient InstructionsNo instructions recorded. Reason for Referral None Reported. Results Created Date Observation Date Name Description Value Unit Range Abnormal Flag Note LastModifiedBy Organization Detail LastModifiedTime 11/11/19 21 11/10/2020 IMAGE GUIDE D PAP AND HPV REGAR DLESS image guided Pap, HPV regardless of Pap result SEE RESULT S BELOW CASE REPOR T: Cytol ogy Gynec ologi shady Repor t Case: [id number] Autho shravan murcia Provi joseph: Jatinder Adrian MD Colle cted: 11/10 1437 Order ing Locat ion: [place] Patho logy Recei sharon: 11/11 0234 First Scree n: Sylvain mcmahon, Cee paz, CT Speci men: Scree beatrice Pap - Image d, Cervi x STATE MENT OF ADEQU ACY: Satis facto ry for evalu ation Trans forma tion zone compo nent prese nt FINAL DIAGN OSIS: Negat chin for Intra epith elial Lesio n or Vazquez jack (NIL) Elect micheal barker roby d by Sylvain mcmahon, Cee paz, CT on 2020 at 3:14 PM ----- ----- ----- ----- ----- ----- ----- ----- ----- ----- ----- ----- ----- ----- ----- ----- ----- ---- HPV RESUL TS: HPV mRNA E6/E7 : No HPV mRNA Detec hattie NOTE: This high risk HPV mRNA assay detec ts fourt een high- risk HPV types (16, 18, 31, 33, 35, 39, 45, 51, 52, 56, 58, 59, 66, 68) witho ut diffe renti ation . COMME NT: Note: This speci men was revie wed by a Cytot echno logis t and/o r Patho logis t (as indic ated in this repor t) after evalu ation using the Thinp rep Imagi ng Syste m. CLINI SHADY INFOR MATIO N: Menst rual Statu s: LMP (if appli cable ): 010 Clini shady Histo ry/Pr eviou s Pap: Type of Neopl manny (if appli cable ): Signi fican t Clini shady Findi ngs: Other Histo ry: Hormo hilary (if appli cable ): PAP EDUCA JOSE FRANCISCO L NOTE: The Pap Test is a scree beatrice test with an inher ent false negat chin rate. Liqui d-bas e sampl ing may decre ase, but will not elimi dhaval, false negat chin resul ts. A negat chin resul t does not precl ude the prese nce and/o r devel opmen t of disea se, since the prese nce of abnor mal cells in the sampl e depen ds on the locat ion of the lesio n and sampl ing techn ique. Joseph nued regul ar scree beatrice is the best metho d of cance r preve ntion . If repor hattie cytol ogic findi ng do not corre late with physi shady and/o r histo rical findi ngs, furth er inves tigat ion is recom shey d, as clini ashlie warra nted. Not Available [facility] (Lab) [address], [place], [address], 11/13/2020 17:49:30 11/22/19 23 11/21/2022 IMAGE GUIDE D PAP AND HPV REGAR DLESS image guided Pap, HPV regardless of Pap result SEE RESULT S BELOW CASE REPOR T: Cytol ogy Gynec ologi sahdy Repor t Case: [id number] Autho shravan g Provi joseph: Jatinder Adrian MD Colle cted: 11/21 1500 Order ing Locat ion: [place] Patho [place]y Recei sharon: 11/22 0549 First Scree n: Ania Weathers , CT Speci men: Scree beatrice Pap - Image d, Cervi x STATE MENT OF ADEQU ACY: Satis facto ry for evalu ation Trans forma tion zone compo nent prese nt FINAL DIAGN OSIS: Negat chin for Intra epith elial Lesio n or Malig guero (NIL) . Elect micheal barker roby d by Ania Weathers CT on 2022 at 4:35 PM ----- ----- ----- ----- ----- ----- ----- ----- ----- ----- ----- ----- ----- ----- ----- ----- ----- ---- HPV RESUL TS: HPV mRNA E6/E7 : No HPV mRNA Detec hattie NOTE: This high risk HPV mRNA assay detec ts fourt een high- risk HPV types (16, 18, 31, 33, 35, 39, 45, 51, 52, 56, 58, 59, 66, 68) witho ut diffe renti ation . COMME NT: This speci men was revie wed by a Cytot echno logis t and/o r Patho logis t (as indic ated in this repor t) after evalu ation using the Thinp rep Imagi ng Syste m. CLINI SHADY INFOR MATIO N: Menst rual Statu s: LMP (if appli cable ): Clini shady Histo ry/Pr eviou s Pap: Type of Neopl manny (if appli cable ): Signi fican t Clini shady Findi ngs: Other Histo ry: Hormo hilary (if appli cable ): PAP EDUCA JOSE FRANCISCO L NOTE: The Pap Test is a scree beatrice test with an inher ent false negat chin rate. Liqui d-bas ed sampl ing may decre ase, but will not elimi dhaval, false negat chin resul ts. A negat chin resul t does not precl ude the prese nce and/o r devel opmen t of disea se, since the prese nce of abnor mal cells in the sampl e depen ds on the locat ion of the lesio n and sampl ing techn ique. Joseph nued regul ar scree beatrice is the best metho d of cance r preve ntion . If repor hattie cytol ogic findi ng do not corre late with physi shady and/o r histo rical findi ngs, fur er inves tigat ion is recom shey d, as clini ashlie matthews nted. Not Available [facility] (Lab) [address], [place], [address], 11/24/2022 17:37:35 02/17/20 24 02/17/2024 IMAGE GUIDE D PAP AND HPV REGAR DLESS image guided Pap, HPV regardless of Pap result SEE RESULT S BELOW CASE REPOR T: Cytol ogy Gynec ologi shady Repor t Case: [id number] Autho shravan murcia Provi joseph: Jatinder Adrian MD Colle cted: 02/16 7662 Order ing Locat ion: [place] Patho [place] Recei sharon: 02/17 0153 First Scree n: Clarke Martinez ed, CT Speci men: Jamel barron Pap - Image d, Cervi x STATE MENT OF ADEQU ACY: Satis facto ry for evalu ation Trans forma tion zone compo nent canno t be defin itive ly ident ified due to the prese nce of atrop hy or other hormo nal daniel es ----- ----- ----- ----- ----- ----- ----- ----- ----- ----- ----- ----- ----- ----- ----- ----- ----- ---- FINAL DIAGN OSIS: Negat chin for Intra epith elial Nico good or Vazquez jack ([facility]) . Atrop hic cell maryanne martinez. Elect micheal ray by Clarke Martinez ed, CT on 02/24 at 10:15 PM ----- ----- ----- ----- ----- ----- ----- ----- ----- ----- ----- ----- ----- ----- ----- ----- ----- ---- HPV RESUL TS: HPV mRNA E6/E7 : No HPV mRNA Detec hattie NOTE: This high risk HPV mRNA assay detec ts fourt een high- risk HPV types (16, 18, 31, 33, 35, 39, 45, 51, 52, 56, 58, 59, 66, 68) witho ut diffe renti ation . COMME NT: This speci men was revie wed by a Cytot echno logis t and/o r Patho logis t (as indic ated in this repor t) after evalu ation using the Thinp rep Imagi ng Syste m. CLINI SHADY INFOR MATIO N: Menst rual Statu s: LMP (if appli cable ): Clini shady Histo ry/Pr eviou s Pap: Type of Neopl manny (if appli cable ): Signi fican t Clini shady Findi ngs: Other Histo ry: Hormo hilary (if appli cable ): PAP EDUCA JOSE FRANCISCO L NOTE: The Pap Test is a scree beatrice test with an inher ent false negat chin rate. Liqui d-bas ed sampl ing may decre ase, but will not elimi dhaval, false negat chin resul ts. A negat chin resul t does not precl ude the prese nce and/o r devel opmen t of disea se, since the prese nce of abnor mal cells in the sampl e depen ds on the locat ion of the lesio n and sampl ing techn ique. Joseph nued regul ar scree beatrice is the best metho d of cance r preve ntion . If repor hattie cytol ogic findi ng do not corre late with physi shady and/o r histo rical findi ngs, furth er inves tigat ion is recom shey d, as clini ashlie warrrachell nted. Not Available [facility] (Lab) [address], [place], [address], 02/25/2024 23:19:44 Result Notes None recorded. Problems Name Problem SNOMED Code Status Onset Date Resolution Date Notes Provider Name and Address Organization Details Recorded Time Irregula r intermen strual bleeding 41623831 Completed 201411/10/2020 Irregula r bleeding between periods; Recorded Elsewher e: No Locat ion: Avani henrik [facility] S ource: EHR Utility Bill Complaints Investigator prerna: N Practi ce ID: 0001 Eitan lable Time: 10:30:00 AM Pauline mcnamara [facility] 1 14:46:32 Hypertro phy of uterus 235227655 Active 2016 Enlarged uterus;R ecorded Elsewher e: No Locat ion: [facility] henrik [facility] S ource: EHR Utility Bill Complaints Investigator prerna: N Practi ce ID: 0001 Eitan lable Time: 11:30:00 AM Not Available [facility] 0 17:22:[address] Concept Completed 201911/10/2020 Encounte r for general adult medical exam with abnormal finding; Recorded Elsewher e: No Locat ion: [facility] Source: EHR Utility Bill Complaints Investigator prerna: N Practi ce ID: 0001 Eitan lable Time: 08:30:00 AM Pauline mcnamara [facility] 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 1 14:46:55 Disorder of uterus 48711327 Active 2019 Disorder of uterus;R ecorded Elsewher e: No Locat ion: [facility] S ource: EHR Utility Bill Complaints Investigator prerna: N Practi ce ID: 0001 Eitan lable Time: 09:00:00 AM Not Available [facility] 0 17:22:34 Screenin g for malignan t neoplasm of rectum Completed 201511/10/2020 Encounte r for screenin g for malignan t neoplasm of rectum;R ecorded Elsewher e: No Locat ion: [facility] S ource: EHR Utility Bill Complaints Investigator prerna: N Bogdanti ce ID: 0001 Eitan lable Time: 03:45:00 PM Pauline Hurtado [facility] 14:47:00 Female genital organ symptoms 042435365 Completed 201411/10/2020 Vaginal dryness; Recorded Elsewher e: No Locat ion: Avinash henrik [facility] N Bogdanti ce ID: 0001 Eitan lable Time: 10:30:00 AM Pauline Hurtado [facility] 14:46:26 Pregnanc y test negative [id number] Completed 201411/10/2020 Pregnanc y examinat ion or test, negative result;R ecorded Elsewher e: No Locat ion: Avinash [facility] pre[facility]na: N Bogdanti ce ID: 0001 Eitan lable Time: 01:30:00 PM Pauline Hurtado [facility] 14:47:11 Body mass index 25-29 - overweig ht 185991409 Completed 201511/10/2020 Body mass index (BMI) 29.0-29. 9, adult;Re corded Elsewher e: No [facility] pre[facility]na: N Bogdanti ce ID: 0001 Eitan lable Time: 03:45:00 PM Pauline Hurtado [facility] 14:46:14 Screenin g for malignan t neoplasm of cervix Completed 201611/10/2020 Screenin g for malignan t neoplasm s of the cervix;R ecorded Elsewher e: No Locat ion: [facility] S ource[facility] pre[facility]na: N Bogdanti ce ID: 0001 Eitan lable Time: 11:30:00 AM Paulinerobi Hurtado [facility] 14:47:06 Bleeding 970479561 Completed 201911/10/2020 Abnormal uterine bleeding ;Recorde d Elsewher e: No [facility] E[facility] Utility Bill Complaints Investigator prerna: N Practi ce ID: 0001 Eitan lable Time: 08:30:00 AM Pauline mcnamara [facility] 1 14:46:29 Pelvic and perineal pain 857588176 Active 2019 Pelvic pain;Rec orded Elsewher e: No [facility]at [facility]: EHR Utility Bill Complaints Investigator prerna: N Practi ce ID: 0001 Eitan lable Time: 08:30:00 AM Not Available [facility] 0 17:22:35 Postmeno pausal bleeding 47211816 Completed 201911/10/2020 Postmeno pausal bleeding ;Recorde d Elsewher e: No Locat ion: [facility] S ource: EHR Utility Bill Complaints Investigator prerna: N Practi ce ID: 0001 Eitan lable Time: 11:00:00 AM Pauline mcnamara [facility] 1 14:47:24 Cyst of ovary 21207947 Active 2014 Ovarian cyst;Rec orded Elsewher e: No Locat ion: [facility] S ource: EHR Utility Bill Complaints Investigator prerna: N Practi ce ID: 0001 Eitan lable Time: 03:00:00 PM Not Available [facility] 0 17:22:35 Urinary tract infectio us disease 83042614 Completed 201911/10/2020 Urinary tract infectio n, site not specifie d;Practi ce ID: 0001 Pauline Hurtado [facility] 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 14:46:58 Amenorrh ea 04283067 Completed 201611/10/2020 Amenorrh ea, unspecif ied;Agus rded Elsewher e: No Locat ion: [facility] S ource: EHR Utility Bill Complaints Investigator prerna: N Bogdanti ce ID: 0001 Eitan lable Time: 11:30:00 AM Pauline Hurtado [facility] 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 14:46:41 Tara infectio n of genital region Completed 201511/10/2020 Candidia sis of vulva and vagina;R ecorded Elsewher e: No Locat ion: [facility] S ource: EHR Utility Bill Complaints Investigator prerna: N Bogdanti ce ID: 0001 Eitan lable Time: 03:30:00 PM Pauline Hurtado [facility] 14:46:18 Postoper ative follow-u p visit Completed 201411/10/2020 Follow-u p examinat ion, followin g unspecif ied surgery; Recorded Elsewher e: No Locat ion: [facility] S ource: EHR Utility Bill Complaints Investigator prerna: N Bogdanti ce ID: 0001 Eitan lable Time: 03:30:00 PM Pauline Hurtdao [facility] 14:47:20 Mucous polyp of cervix 95254052 Completed 201411/10/2020 Mucous polyp of cervix;R ecorded Elsewher e: No Locat ion: [facility] S ource: EHR Utility Bill Complaints Investigator prerna: N Bogdanti ce ID: 0001 Eitan lable Time: 10:30:00 AM Paulinerobi Hurtado [facility] 14:46:36 Pre-surg matthew evaluati on Completed 201411/10/2020 Other specifie d pre-oper ative examinat ion;Agus rded Elsewher e: No Locat ion: Avinash chester [facility] S ource: EHR Utility Bill Complaints Investigator prerna: N Practi ce ID: 0001 Eitan lable Time: 05:00:00 PM Paulinerobi Hurtado [facility] 14:47:18 Screenin g for malignan t neoplasm of colon Completed 201011/10/2020 Special screenin g for malignan t neoplasm s, colon;Pr actice ID: 0001 Paulinerobi Hurtado [facility] 14:47:03 Menstrua tion finding Active 2014 EXCESSIV E MENSTRUA TION;Pra ctice ID: 0001 Not Available [facility] 0 17:22:39 Problem Notes None recorded. Procedures Surgical History Date Name Laterality Status Provider Name and Address Organization Details Recorded Time 03/08/20 24 SALPINGO-OOPH[place] CTOMY, LAPAROSCOPIC (SURG) completed Brianna Angulo [facility] 03/08/2024 09:49:06 11/22/19 23 Date of Last Pap Smear completed [facility] 02/17/2024 11:13:26 09/26/19 19 completed [facility] 11/10/2020 14:41:49 03/17/19 15 Hysteroscopy completed [facility] 11/10/2020 14:49:58 06/30/19 14 Date of Last Mammogram completed [facility] 11/10/2020 14:41:49 03/17/19 14 Bilateral Mastectomy completed Lisa [facility] 02/17/2024 11:15:10 Colonoscopy completed [facility] 11/10/2020 14:42:00 Tubal Ligation completed [facility] 11/10/2020 14:49:36 Hysteroscopy completed [facility] 11/21/2022 11:59:46 Imaging Results None recorded. [...] Prescrib ed Elsewher e: No Locat ion: [facility] odify By: kevin jones DateTime : 03/27/19 16 03:30:00 PM Not [...] Prescrib ed Elsewher e: No Locat ion: [facility] Modify By: kevin Kandivika r DateTime : 04/13/19 08:30:00 AM Not Available Not Available Not Available Celebrex 200 mg capsule take 1 capsule by oral route the night before and 2 capsules by mouth the morning of procedur e 05/05 completed Prescrib ed Elsewher e: No Locat ion: Meaganmoisés henrik [facility] odify By: smcthu Kandivika r DateTime [...] ed Elsewher e: No Locat ion: Avinash [facility] odify By: kpanyik Kandivika r DateTime : [...] Elsewher e: No Locat ion: Avinash chester [facility] odify By: smcthu Wyman r DateTime : 04/20/19 09:00:00 AM Not [...] ed Elsewher e: No Locat ion: [facility] odify By: bcphilly freeman DateTime : 05/07/19 11:02:23 AM Not Available Not Available Not Available metoprolo l tartrate 25 mg tablet TAKE 1 TABLET BY MOUTH TWICE DAILY active Not Available Not Available No t Available multivita min active Not Available Not Available Not Available Soltamox 20 mg/10 mL oral solution 04/13 completed Prescrib ed Elsewher e: Yes Loca tion: Avinash chester [facility] odify By: kpanyik Zamzam r DateTime : 07/13/19 15 10:30:00 AM Not Available Not Available Not Available Vicodin 5 mg-300 mg tablet 2 tabs po 2 hours before the procedur e 10/04 completed Prescrib ed Elsewher e: No Locat ion: Avinash chester [facility] odify By: randi ashleyunter DateTime : 09/13/19 15 09:24:10 AM Not Available Not Available Not Available Kapspargo Sprinkle 25 mg capsule,e xtended release take 1 capsule by oral route every day 11/10 completed Prescrib ed Elsewher e: Yes Loca tion: Avinash chester [facility] odify By: smcaley Zamzam r DateTime : 04/20/19 20 09:00:00 AM Not Available Not Available Not Available Vitals Date Recorded Body height Body mass index (BMI) Body weight Systolic blood pressure Diastolic blood pressure Provider Name and Address Organization Details Last Updated DateTime 11/10/2020 154.94 cm 28.2 kg/m2 07969.26 g 169 mm[Hg] 89 mm[Hg] [facility] 1 14:41:45 Date Recorded Body height Body mass index (BMI) Body weight Systolic blood pressure Diastolic blood pressure Systolic blood pressure Diastolic blood pressure Provider Name and Address Organization Details Last Updated DateTime 3 154.94 cm 30.6 kg/m2 65114.9 6 g 172 mm[Hg] 103 mm[Hg] 160 mm[Hg] 110 mm[Hg] [facility] 3 12:14:02 Date Recorded Body height Body mass index (BMI) Body weight Systolic blood pressure Diastolic blood pressure Provider Name and Address Organization Details Last Updated DateTime 02/17/2024 154.94 cm 25.3 kg/m2 85532.38 g 136 mm[Hg] 83 mm[Hg] Lisa Darrick [facility] 11:10:18 Social History Question Answer Notes LastModified by Organizat ion Details LastModified Time Tobacco Smoking Status Never Smoker Pauline Hurtado naima, [facility] 11/21/2022 11:59:42 Do You Have An [...] Or The Highest Degree You Have Received? [id number] Information not available 11/10/2020 What Is Your [...] Anxious, Or Unable To Sleep At Night)? [id number] Information not available 11/10/2020 Do You Use [...] Diagnosis/Indication Diagnosis SNOMED-CT Code Diagnosis ICD10 Code [id number] Shyam Adrian MD [place] [address] [address] 11/10/2020 14:22:22 11/10/2020 16:57:21 Gynecologic examination 74159285 Z01.419 [id number] Shyam Adrian MD [place] [address] [address] 11/21/2022 11:32:12 11/21/2022 12:31:42 Gynecologic examination 64843421 Z01.419 Z11.51 [id number] [place] [address] [address] 02/17/2024 10:51:19 02/17/2024 12:34:02 Gynecologic examination 11673389 Z01.419 Z11.51 History of malignant neoplasm of breast 955172234 Z85.3 Health Concerns Section Related Observation LastModified by Organization Detai ls LastModified Time None Recorded Concern Status LastModified by Organization Details LastModified Time None Recorded Advance Directives Directive N: Payers Encounter Date Sequence Insurance Name Policy Number Policy Oscar Covered Member ID Oscar Member ID Guarantor Name 11/10/2020 1 [place] [id number] Isaías Reed [id number] Angie Derek 11/21/2022 1 [place] [id number] Isaías Reed [id number] Angie Derek 02/17/2024 1 [place] [id number] Isaías Reed [id number] Angie Derek Notes Date Note Type Note Provider Name and Address Organization Details Recorded Time 11/10/2020 text/html Annual GYNReport ed bypatient.History: no gynecologic complaints Urinary symptoms:No hematuria; No incontinence Vulva:No genital lesion Vagina:Normal vaginal discharge Breast:No breast pain; No breast lump; No nipple discharge Sexual complaints:No sexual complaints; No pain during intercourse; Normal libido Menopausal Symptoms:No menopausal symptoms; Normal vaginal lubrication Psychological symptoms:No depression; No anxiety Preventive measures:Encourage regular exercise Shyam Adrian MD [address], [place], [address], [facility] 11/10/2020 15:19:45 11/21/2022 text/html Annual GYNReport ed bypatient.History: no gynecologic complaints Urinary symptoms:No hematuria; No incontinence Vulva:No genital lesion Vagina:Normal vaginal discharge Breast:No breast pain; No breast lump Sexual complaints:Pain during intercourse Menopausal Symptoms:Hot flashes;Inadequacy of lubrication of vaginal mucosa Psychological symptoms:No depression; No anxiety Preventive measures:Encourage regular exercise Shyam Adrian MD [address], [place], [address], [facility] 11/21/2022 12:31:35 02/17/2024 text/html Annual GYNReport ed bypatient.History: no gynecologic complaints Urinary symptoms:No hematuria Vulva:No genital lesion Vagina:Normal vaginal discharge Sexual complaints:No sexual complaints; No pain during intercourse Menopausal Symptoms:No menopausal symptoms Psychological symptoms:No depression; No anxiety Preventive measures:Encourage self breast examination; Encourage regular exercise Shyam Adrian MD [address], [place], [address], [facility] 02/17/2024 12:18:10 OBGyn Episode Ob Episode Information Episode Created Date Number of Fetuses Patient Bloodtype Patient rh Status Prepregnancy Weight lbs Domestic Partner Domestic Partner Phone Father Name Manager English Status 11/11/19 21 1 CLOSED Fetus Data First Name Last Name Admitted to NICU Weight (g) Sex Living Outcome Pediatric Complications Fetus ID Race Codes Race Delivery Type F [id number] Vaginal Delivery Alyson Calculation ALYSON Calculation Method Initial Alyson Date Initial Exam Date Initial Exam Provider Initial Ultrasound Date Last Menstrual Period Date Ultra Sound Weeks Gestation Conception by IVF Embryo Age at Transfer Date of Transfer 0 Eighteen To Twenty Week Alyson Update Ultra Sound Date Fundal Height At Umbil Quickening Date Ultra Sound Latest Weeks Gestation Final Alyson Confirmed By Final Alyson Confirmed Date Final Alyson Date Ultra Sound Latest Days Gestation 0 0 Menstrual History Last Menstrual Date Menses Monthly On Bcp Conception Prior Menses Frequency Hcg Plus Date Menarche Onset Age Delivery Information Delivery Date Delivery Type Labor Anesthesia Weeks Gestation Incision Type Labor Labor Length Hrs Delivered By Post Complications Tubal Sterilization Discharge Date Comments 7 Discharge Information Feeding Method Contraceptive Method Maternal HG B and HCT Levels Ob Episode Information Episode Created Date Number of Fetuses Patient Bloodtype Patient rh Status Prepregnancy Weight lbs Domestic Partner Domestic Partner Phone Father Name Manager English Status 11/11/19 21 1 CLOSED Fetus Data First Name Last Name Admitted to NICU Weight (g) Sex Living Outcome Pediatric Complications Fetus ID Race Codes Race Delivery Type M [id number] Vaginal Delivery Alyson Calculation ALYSON Calculation Method Initial Alyson Date Initial Exam Date Initial Exam Provider Initial Ultrasound Date Last Menstrual Period Date Ultra Sound Weeks Gestation Conception by IVF Embryo Age at Transfer Date of Transfer 0 Eighteen To Twenty Week Alyson Update Ultra Sound Date Fundal Height At Umbil Quickening Date Ultra Sound Latest Weeks Gestation Final Alyson Confirmed By Final Alyson Confirmed Date Final Alyson Date Ultra Sound Latest Days Gestation 0 0 Menstrual History Last Menstrual Date Menses Monthly On Bcp Conception Prior Menses Frequency Hcg Plus Date Menarche Onset Age Delivery Information Delivery Date Delivery Type Labor Anesthesia Weeks Gestation Incision Type Labor Labor Length Hrs Delivered By Post Complications Tubal Sterilization Discharge Date Comments 9 Discharge Information Feeding Method Contraceptive Method Maternal HG B and HCT Levels Ob Episode Information Episode Created Date Number of Fetuses Patient Bloodtype Patient rh Status Prepregnancy Weight lbs Domestic Partner Domestic Partner Phone Father Name Manager English Status 11/11/19 21 1 CLOSED Fetus Data First Name Last Name Admitted to NICU Weight (g) Sex Living Outcome Pediatric Complications Fetus ID Race Codes Race Delivery Type F [id number] Vaginal Delivery Alyson Calculation ALYSON Calculation Method Initial Alyson Date Initial Exam Date Initial Exam Provider Initial Ultrasound Date Last Menstrual Period Date Ultra Sound Weeks Gestation Conception by IVF Embryo Age at Transfer Date of Transfer 0 Eighteen To Twenty Week Alyson Update Ultra Sound Date Fundal Height At Umbil Quickening Date Ultra Sound Latest Weeks Gestation Final Alyson Confirmed By Final Alyson Confirmed Date Final Alyson Date Ultra Sound Latest Days Gestation 0 0 Menstrual History Last Menstrual Date Menses Monthly On Bcp Conception Prior Menses Frequency Hcg Plus Date Menarche Onset Age Delivery Information Delivery Date Delivery Type Labor Anesthesia Weeks Gestation Incision Type Labor Labor Length Hrs Delivered By Post Complications Tubal Sterilization Discharge Date Comments 7 Discharge Information Feeding Method Contraceptive Method Maternal HG B and HCT Levels
--- OUTSIDE RECORDS SUMMARY | 2024-03-15 01:47 | XMS_ITS | Encounter Summary ---
Author Organization [facility] Address [address] 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) Jose R Pearson MD [address] [place] [address] Phone: tel: fax: [facility] On[facility] [address] [place] [address] Phone: tel: fax: Referral ID Status Reason Start Date Expiration Date V isits Requested Visits Authorized [id number] Authorized 10/15/2023 1 8 Encounter Details Date Type Department Care Team (Latest Contact Info) Description 02/04/2024 2:00 PM YARD LABOR SUPERVISOR [facility] [address] [place] [address] Jose R Pearson MD [address] [place] [address] Breast cancer metastasized to axillary lymph node, [...] Sign Reading Time Taken Comments Blood Pressure 137/66 02/04/2024 1:47 PM YARD LABOR SUPERVISOR Pulse 55 02/04/2024 1:47 PM YARD LABOR SUPERVISOR Temperature 36.6 ??C (97.8 ??F) 02/04/2024 1:47 PM CS T Respiratory Rate 16 02/04/2024 1:47 PM YARD LABOR SUPERVISOR Oxygen Saturation - - Inhaled Oxygen Concentration - - Weight - - Height - - Body Mass Index - - documented in this encounter Miscellaneous Notes * Interdisciplinary - Francy Campos RN - 02/04/2024 2:00 PM CST Pt ambulated into treatment room in stable condition. Vitals obtained. Intended effects and side effects of medications reviewed with pt. Pt medicated per MD orders. Band aid to site. Pt tolerated well. Pt discharged in stable condition. LABOR SUPERVISOR documented in this encounter Plan of Treatment Upcoming Encounters Date Type Department Care Team (Late st Contact Info) Description 03/23/2024 1:00 PM YARD LABOR SUPERVISOR Appointment [facility] Cardiology Services [address] [place] [address] Jose R Pearson MD [address] [place] [address] Discharge Disposition: Discharged to home or Selfcare 03/23/2024 2:30 PM YARD LABOR SUPERVISOR Appointment [facility] [address] [place] [address] Jose R Pearson MD [address] [place] [address] Discharge Disposition: Discharged to home or Selfcare 03/30/2024 10:00 AM YARD LABOR SUPERVISOR Office Visit [facility] On[facility] Services [address] [place] [address] Jose R Pearson MD [address] [place] [address] Discharge Disposition: Discharged to home or Selfcare 03/30/2024 10:30 AM YARD LABOR SUPERVISOR Lab [facility] Services [address] [place] [address] Discharge Disposition: Discharged to home or Selfcare 03/31/2024 1:00 PM YARD LABOR SUPERVISOR Clinical Support [facility] [address] [place] [address] Jose R Pearson MD [address] [place] [address] Discharge Disposition: Discharged to home or Selfcare 04/28/2024 1:30 PM YARD LABOR SUPERVISOR Clinical Support [facility] [address] [place] [address] Discharge Disposition: Discharged to home or Selfcare [...] 120 mg, Subcutaneous, ONCE, 1 dose, On Fri02/04/24 at 0830, Administer to upper arm, upper thigh, or abdomen.Indications:Breas t cancer metastasized to axillary lymph node, right (HCC),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) Given 02/04/2024 1:48 PM YARD LABOR SUPERVISOR 120 mg Left Lateral Upper Arm documented in this encounter Additional Health Concerns Assessment Noted Time PHQ-9 Depression Total Score: 0 04/01/19 9:00 AM YARD LABOR SUPERVISOR documented as of this encounter Care Teams Associate Dean Relationship Specialty Start Date End Date Iveth Guzman MD [address] [place] [address] PCP - General Family Medicine 05/02/23 Laurence Luque MD [address] [address] Consulting Physician General Surgery 02/01/15 Clemencia Bennett MD [address] [place] [address] Family Medicine 01/30/18 Sony Mcpherson MD [address] [address] Consulting Physician General Surgery 09/08/23 Jose R Pearson MD [address] [place] [address] Consulting Physician Medical Oncology 10/02/23 documented as of this encounter
--- OUTSIDE RECORDS SUMMARY | 2024-03-15 01:47 | XMS_ITS | Encounter Summary ---
Author Organization [facility] Address [address] [place] [address] Phone Care Team Providers Care Spd Tech Name Role Phone Laurence Luque MD Unavailable [phone] Clemencia Bennett MD Unavailable [phone] Iveth Guzman MD Primary Care Provider + [phone] Sony Mcpherson MD Unavailable [phone] Jose R Pearson MD Unavailable [phone] Reason for Referral * Radiology Services (Routine) - Pending Review Specialty Diagnoses / Procedures Referred By Contac t Referred To Contact Radiology Diagnoses Breast cancer metastasized to axillary lymph node, right (HCC) Procedures CT CHEST ABDOMEN AND PELVIS W CONTRAST Jose R Pearson MD [address] [place] [address] Phone: tel: fax: Referral ID Status Reason Start Date Expiration Date V isits Requested Visits Authorized [id number] Pending Review 01/27/2024 1 1 RECORDIST * Radiology Services (Routine) - Pending Review Specialty Diagnoses / Procedures Referred By Contac t Referred To Contact Radiology Diagnoses Breast cancer metastasized to axillary lymph node, right (HCC) Procedures ADULT TRANS THORACIC ECHO 2D COMPLETE Jose R Pearson MD [address] [place] [address] Phone: tel: fax: Referral ID Status Reason Start Date Expiration Date V isits Requested Visits Authorized [id number] Pending Review 01/27/2024 1 1 RECORDIST Reason for Visit * Reason Comments Follow-up Encounter Details Date Type Department Care Team (Late st Contact Info) Description 01/27/2024 1:20 PM DISC RECORDIST Office Visit [facility] Oncology Services [address] [place] [id number] Jose R Pearson MD [address] [place] [address] Breast cancer metastasized to axillary lymph node, right (HCC) (Primary Dx); Drug-induced cardiomyopathy (HCC); 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); Mass overlapping multiple quadrants of right breast; History of bilateral mastectomy Discharge Disposition: Discharged to home or Selfcare [...] Sign Reading Time Taken Comments Blood Pressure 142/85 01/27/2024 1:34 PM DISC RECORDIST Pulse 60 01/27/2024 1:34 PM DISC RECORDIST Temperature 36.4 ??C (97.6 ??F) 01/27/2024 1:34 PM CS T Respiratory Rate 20 01/27/2024 1:34 PM DISC RECORDIST Oxygen Saturation 99% 01/27/2024 1:34 PM DISC RECORDIST Inhaled Oxygen Concentration - - Weight 62.4 kg (137 lb 9.6 oz) 01/27/2024 1:34 P M DISC RECORDIST Height 154.9 cm (5' 1 ) 01/27/2024 1:34 PM DISC RECORDIST Body Mass Index 26 01/27/2024 1:34 PM DISC RECORDIST documented in this encounter Progress Notes * Rosa Galvez - 01/27/2024 1:20 PM CST Outpatient Hem/Onc Progress Note PROGRESS NOTE Angie Reed is a 53 y.o. female seen today for follow up of recurrent breast cancer after mastectomy involving the chest wall and axillary lymph nodes. Patient currently receiving TCHP every 21 days with C1D1 on 09/23/23, C2D1 10/15/23, C3D1 11/05/23, and C4D1 on 11/26/23. She started maintenance therapy with Perjeta plus Trazimera every 21 days on 12/17/23. For metastatic bone disease patient receives Xgeva 120 mg injection every 4 weeks, started on 10/15/23. Angie reports doing well today. She reports appetite is stable without change in weight. Angie denies any new side effects associated with Perjecta/Herceptin infusions. Denies any new pains or joint discomfort. She reports mild myalgia after treatment that resolved after few days. Angie reports improvement in right shoulder ROM with improvement in right chest wall involvement without discharge or oozing for last 8-12 weeks. She reportsoverall doing well since I last saw her. Angie reports approximate date for last menstrual cycle inearly 2018. 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 --08/18/23 US Right chest and axilla with thickened erythematous skin with ulceration and scabbing concerning for ulcerated mass, multiple nodules within the tissues of the superior postsurgical chest suspicious for malignancy, and multiple right axillary lymph nodes suspicious for malignancy --08/20/23 US Guided breast and axilla biopsy: pathology confirmed invasive ductal carcinoma, ER/MD positive, Ki67 strong at 80%, with HER2 2+ on IHC, positive on FISH -- PET showed metastatic disease to LN (supraclav, axillary, mediastinal) and osseous mets -- started chemo TCHP cycle 1 on 09/23/23, received cycle 4 on 11/26/2023. Very good response noted on right chest wall --12/17/23 plans to proceed to maintenance treatment with Trazimera 441 mg plus Perjeta 420 mg IV every 21 days 2. Malignant breast neoplasm stage I: Pathologic stage T1cN0 -- s/p double mastectomy and right SLNB on 12/01/[address] Luque ---3 distinct foci of invasive ductal carcinoma measuring 11mm, 7mm, and 5mm. ER/MD strongly positive in all tumors that were biopsied. Negative HER2 status. OncotypeDX showed low risk RS (score of 16). BRCA1/2 negative -- Did not need adjuvant RT -- Started Lezama in 12/2013. Took lezama till 2017 then discontinued on her own Reviewed patients past medical, surgical, social, and family history. Outpatient Medications Marked as Taking for the 01/27/24 encounter (Office Visit) with Jose R Pearson MD Medication Sig Dispense Refill atorvastatin (LIPITOR) 10 MG Tablet Take 1 tablet by mouth once daily 90 Tablet 0 Cholecalciferol (Vitamin D) 2000 UNIT Tablet Take 1 Tablet by mouth daily. metoprolol tartrate (LOPRESSOR) 25 MG Tablet Take 1 tablet by mouth twice daily 180 Tablet 0 Allergies as of 01/27/2024 (No Known Allergies) REVIEW OF SYSTEMS Review of Systems Constitutional: Positive for malaise/fatigue and weight loss. Gastrointestinal: Positive for abdominal pain (occasional cramping), diarrhea and nausea (mild, improved with intervention). Negative for constipation. Physical Exam Physical Exam Chest: Comments: Improvement in cutaneous changes in the right chest wall with resolve in wound causing drainage. Puckering of the skin appreciated with scarring from previous cutaneous changes. Improvement in prominent lymphadenopathy in the right axilla. PAIN ASSESSMENT: no verbal pain complaints today. DATA: Lab Results Component Value Date WBC 5.94 01/06/2024 RBC 3.35 (L) 01/06/2024 HEMOGLOBIN 10.8 (L) 01/06/2024 MCV 99.4 (H) 01/06/2024 MCH 32.2 01/06/2024 MCHC 32.4 01/06/2024 PLATELETCNT 211 01/06/2024 RDW 14.7 01/06/2024 LYMPHOCYTES 29.0 01/06/2024 RELEOS 9.3 (H) 01/06/2024 RELBAS 0.8 01/06/2024 ANC 3.21 01/06/2024 MONOCYTES 0.41 01/06/2024 EOSINOPHILS 0.55 (H) 01/06/2024 BASOPHILS 0.05 01/06/2024 Lab Results Component Value Date SODIUM 140 01/06/2024 POTASSIUM 3.5 01/06/2024 CHLORIDE 105 01/06/2024 ANIONGAP 11.5 01/06/2024 GLUCOSE 123 (H) 01/06/2024 BUN 5 (L) 01/06/2024 CREATININE 0.69 01/06/2024 TOTALPROTEIN 6.1 (L) 01/06/2024 ALBUMIN 3.8 01/06/2024 CALCIUM 9.3 01/06/2024 SGPTALT 11 01/06/2024 ALKALINEPHO 50 01/06/2024 DIAGNOSTIC IMAGING STUDIES: 12/23/23 ECHOCARDIOGRAM: IMPRESSION: LV EF of 55-60% 12/20/23 CT C/A/P: IMPRESSION: Interval decrease in size of the infiltrative mass involving the right chest wall extending from the skin surface at the level of the right nipple to the anterior right pleural surface, which is compatible with disease improvement. Interval improved bilateral axillary, mediastinal, and right internal mammary lymphadenopathy, which is compatible with disease improvement. Redemonstration of the multiple scattered pulmonary nodules, many of which have decreased in size in comparison to the prior study, and findings are compatible with disease improvement. No definite CT correlate for the previously visualized foci of FDG avidity involving T5, T7, and bilateral iliac bones. The necessity of further evaluation with MRI or bone scan can be determined clinically. No definite evidence of metastatic disease in the abdomen and pelvis. No definite evidence of bowel obstruction. Mild mucosal thickening of the transverse colon, descending colon, and sigmoid colon, which may be related to underdistention versus mild colitis of infectious or inflammatory etiology. Circumferential mucosal thickening of the urinary bladder, which may be related to underdistention versus cystitis. Clinical correlation with urinary analysis is recommended as clinically indicated. Scattered colonic diverticula without definite evidence of diverticulitis. Normal appendix. PET scan 09/17/23 IMPRESSION: Large hypermetabolic infiltrative right chest wall mass corresponding to the biopsy-proven malignancy. Multiple hypermetabolic bilateral axillary, mediastinal, right internal mammary and hilar lymph nodes characteristic of metastatic disease. Hypermetabolic osseous lesions in the bilateral iliac bones likely early osseous metastasis. Indeterminate activity at T5 and T7, continued attention on follow-up imaging recommended. Pulmonary nodules measuring up to 0.9 cm with minimal misregistered metabolic activity, these are nonspecific but suspicious for pulmonary metastasis. Continued attention on follow-up imaging would be recommended. Postsurgical changes from left mastectomy. Echocardiogram 09/16/2023 EF of 65% Assessment: Metastatic breast cancer, ER and MD positive, HER2 demetra positive by FISH Bone mets Diarrhea due to chemo Bone pains after chemo Plan: 2. Continue treatment with Herceptin 6 milligrams/kilogram plus Perjeta 420 mg IV every 21 days fortreatment of HER2 positive breast cancer. Reviewed treatment will be continued on this treatment until toxicity or disease progression identified on imaging studies. Patient will be monitored with echocardiogram every 3 months to ensure adequate cardiac function. Due 03/21/2024--order placed today for this to be completed to ensure up to date. 3. START Letrozole 2.5 mg po daily for aromatase inhibitor therapy in treatment of hormone positivebreast cancer. Reviewed common side effects of this medication including mood swings, hot flashes, joint pains, and decrease in bone density. Patient instructed to monitor for changes in joint aches and pains after starting this intervention, contacting office if this symptom becomes intolerable todiscuss alternate medication. 4. Continue Xgeva 120 mg SQ every 6 weeks for bone mets. She is edentulous. Continue Calcium 600 mgPO daily to ensure appropriate levels to continue Xgeva treatment. 5. Continue active physical routine. 6. Zofran and compazine prn nausea. Imodium PRN diarrhea Continue treatment every 3 weeks Follow up in 9 weeks with Echo prior The patient was given an opportunity to ask questions, and all questions answered to patient's satisfaction. Patient verbalizes understanding of the plan as outlined above. The documentation for this visit was completed by Rosa Galvez acting as a scribe for Jose R Wilkes MD. 01/27/2024, 1:37 PM DISC RECORDIST RECORDIST * Jose R Pearson MD - 01/27/2024 1:20 PM CST Outpatient Hem/Onc Progress Note PROGRESS NOTE Angie Reed is a 53 y.o. female seen today for follow up of recurrent breast cancer after mastectomy involving the chest wall and axillary lymph nodes. Patient currently receiving TCHP every 21 days with C1D1 on 09/23/23, C2D1 10/15/23, C3D1 11/05/23, and C4D1 on 11/26/23. She started maintenance therapy with Perjeta plus Trazimera every 21 days on 12/17/23. For metastatic bone disease patient receives Xgeva 120 mg injection every 4 weeks, started on 10/15/23. Angie reports doing well today. She reports appetite is stable without change in weight. Angie denies any new side effects associated with Perjecta/Herceptin infusions. Denies any new pains or joint discomfort. She reports mild myalgia after treatment that resolved after few days. Angie reports improvement in right shoulder ROM with improvement in right chest wall involvement without discharge or oozing for last 8-12 weeks. She reportsoverall doing well since I last saw her. Angie reports approximate date for last menstrual cycle inearly 2018. 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 --08/18/23 US Right chest and axilla with thickened erythematous skin with ulceration and scabbing concerning for ulcerated mass, multiple nodules within the tissues of the superior postsurgical chest suspicious for malignancy, and multiple right axillary lymph nodes suspicious for malignancy --08/20/23 US Guided breast and axilla biopsy: pathology confirmed invasive ductal carcinoma, ER and MD positive, Ki67 strong at 80%, with HER2 2+ on IHC, positive on FISH -- PET showed metastatic disease to LN (supraclav, axillary, mediastinal) and osseous mets -- started chemo TCHP cycle 1 on 09/23/23, received cycle 4 on 11/26/2023. Very good response noted on right chest wall --12/17/23 plans to proceed to maintenance treatment with Trazimera 441 mg plus Perjeta 420 mg IV every 21 days -- added aromatase inhibitor letrozole 2.5 mg p.o. daily on 01/27/2024 2. Malignant breast neoplasm stage I: Pathologic stage T1cN0 -- s/p double mastectomy and right SLNB on 12/01/[address] Luque ---3 distinct foci of invasive ductal carcinoma measuring 11mm, 7mm, and 5mm. ER/MD strongly positive in all tumors that were biopsied. Negative HER2 status. OncotypeDX showed low risk RS (score of 16). BRCA1/2 negative -- Did not need adjuvant RT -- Started Lezama in 12/2013. Took lezama till 2017 then discontinued on her own Reviewed patients past medical, surgical, social, and family history. Outpatient Medications Marked as Taking for the 01/27/24 encounter (Office Visit) with Jose R Pearson MD Medication Sig Dispense Refill atorvastatin (LIPITOR) 10 MG Tablet Take 1 tablet by mouth once daily 90 Tablet 0 Cholecalciferol (Vitamin D) 2000 UNIT Tablet Take 1 Tablet by mouth daily. metoprolol tartrate (LOPRESSOR) 25 MG Tablet Take 1 tablet by mouth twice daily 180 Tablet 0 Allergies as of 01/27/2024 (No Known Allergies) REVIEW OF SYSTEMS Review of Systems Constitutional: Positive for malaise/fatigue and weight loss. Gastrointestinal: Positive for abdominal pain (occasional cramping), diarrhea and nausea (mild, improved with intervention). Negative for constipation. Physical Exam Physical Exam Chest: Comments: Improvement in cutaneous changes in the right chest wall with resolve in wound causing drainage. Puckering of the skin appreciated with scarring from previous cutaneous changes. Improvement in prominent lymphadenopathy in the right axilla. PAIN ASSESSMENT: no verbal pain complaints today. DATA: Lab Results Component Value Date WBC 5.28 01/27/2024 RBC 3.46 (L) 01/27/2024 HEMOGLOBIN 11.1 (L) 01/27/2024 MCV 101.4 (H) 01/27/2024 MCH 32.1 01/27/2024 MCHC 31.6 01/27/2024 PLATELETCNT 165 01/27/2024 RDW 14.5 01/27/2024 LYMPHOCYTES 43.6 (H) 01/27/2024 RELEOS 12.1 (H) 01/27/2024 RELBAS 0.4 01/27/2024 ANC 1.96 01/27/2024 MONOCYTES 0.36 01/27/2024 EOSINOPHILS 0.64 (H) 01/27/2024 BASOPHILS 0.02 01/27/2024 Lab Results Component Value Date SODIUM 147 (H) 01/27/2024 POTASSIUM 3.6 01/27/2024 CHLORIDE 111 (H) 01/27/2024 ANIONGAP 12.6 01/27/2024 GLUCOSE 116 (H) 01/27/2024 BUN 7 (L) 01/27/2024 CREATININE 0.74 01/27/2024 TOTALPROTEIN 6.1 (L) 01/27/2024 ALBUMIN 3.8 01/27/2024 CALCIUM 9.7 01/27/2024 SGPTALT 12 01/27/2024 ALKALINEPHO 52 01/27/2024 DIAGNOSTIC IMAGING STUDIES: 12/23/23 ECHOCARDIOGRAM: IMPRESSION: LV EF of 55-60% 12/20/23 CT C/A/P: IMPRESSION: Interval decrease in size of the infiltrative mass involving the right chest wall extending from the skin surface at the level of the right nipple to the anterior right pleural surface, which is compatible with disease improvement. Interval improved bilateral axillary, mediastinal, and right internal mammary lymphadenopathy, which is compatible with disease improvement. Redemonstration of the multiple scattered pulmonary nodules, many of which have decreased in size in comparison to the prior study, and findings are compatible with disease improvement. No definite CT correlate for the previously visualized foci of FDG avidity involving T5, T7, and bilateral iliac bones. The necessity of further evaluation with MRI or bone scan can be determined clinically. No definite evidence of metastatic disease in the abdomen and pelvis. No definite evidence of bowel obstruction. Mild mucosal thickening of the transverse colon, descending colon, and sigmoid colon, which may be related to underdistention versus mild colitis of infectious or inflammatory etiology. Circumferential mucosal thickening of the urinary bladder, which may be related to underdistention versus cystitis. Clinical correlation with urinary analysis is recommended as clinically indicated. Scattered colonic diverticula without definite evidence of diverticulitis. Normal appendix. PET scan 09/17/23 IMPRESSION: Large hypermetabolic infiltrative right chest wall mass corresponding to the biopsy-proven malignancy. Multiple hypermetabolic bilateral axillary, mediastinal, right internal mammary and hilar lymph nodes characteristic of metastatic disease. Hypermetabolic osseous lesions in the bilateral iliac bones likely early osseous metastasis. Indeterminate activity at T5 and T7, continued attention on follow-up imaging recommended. Pulmonary nodules measuring up to 0.9 cm with minimal misregistered metabolic activity, these are nonspecific but suspicious for pulmonary metastasis. Continued attention on follow-up imaging would be recommended. Postsurgical changes from left mastectomy. Echocardiogram 09/16/2023 EF of 65% Assessment: Metastatic breast cancer, ER and MD positive, HER2 demetra positive by FISH Bone mets Diarrhea due to chemo Bone pains after chemo Plan: 1. Reviewed patient's recent clinical symptoms, imaging and lab results. On clinical exam right chest wall recurrence looks pretty good with some remnants scar tissue without any evidence of active drainage or concern. CT scan shows improvement in mediastinal, axillary lymph nodes, pulmonary nodules as well as bone Mets. Reassurance given to patient. Will continue palliative Herceptin plus Perjeta. Will add aromatase inhibitor given ER and MD positive disease. We will repeat CT chest abdomen pelvis in March of 2024 2. Continue treatment with Herceptin 6 milligrams/kilogram plus Perjeta 420 mg IV every 21 days fortreatment of HER2 positive breast cancer. Reviewed treatment will be continued on this treatment until toxicity or disease progression identified on imaging studies. Patient will be monitored with echocardiogram every 3 months to ensure adequate cardiac function. Due 03/21/2024--order placed today for this to be completed to ensure up to date. 3. START Letrozole 2.5 mg po daily for aromatase inhibitor therapy in treatment of hormone positivebreast cancer. Reviewed common side effects of this medication including mood swings, hot flashes, joint pains, and decrease in bone density. Patient instructed to monitor for changes in joint aches and pains after starting this intervention, contacting office if this symptom becomes intolerable todiscuss alternate medication. 4. Continue Xgeva 120 mg SQ every 6 weeks for bone mets. She is edentulous. Continue Calcium 600 mgPO daily to ensure appropriate levels to continue Xgeva treatment. 5. Continue active physical routine. 6. Zofran and compazine prn nausea. Imodium PRN diarrhea Continue treatment every 3 weeks Follow up in 9 weeks with Echo prior The patient was given an opportunity to ask questions, and all questions answered to patient's satisfaction. Patient verbalizes understanding of the plan as outlined above. The documentation for this visit was completed by Rosa Galvez acting as a scribe for Jose R Wilkes MD. 01/27/2024, 2:19 PM DISC RECORDIST The documentation recorded by the scribe was completed while in the exam room with me and the patient. The documentation accurately reflects the service I personally performed and the decisions made by me. I have confirmed and edited the documentation as necessary. Jose R Pearson MD 01/27/2024, 2:19 PM DISC RECORDIST RECORDIST documented in this encounter Miscellaneous Notes * Interdisciplinary - Bianca Kong - 01/27/2024 1:20 PM CST The patient reports no physical complaints during today's visit. Pain score is 0. Patient reports she is slowly including more activities into her daily routine such as exercising. RECORDIST * Interdisciplinary - Bianca Kong - 01/27/2024 1:20 PM CST Patient will follow up in 9 weeks with Echo prior. Treatment every 3 weeks. RECORDIST documented in this encounter Plan of Treatment Upcoming Encounters Date Type Department Care Team (Late st Contact Info) Description 03/23/2024 1:00 PM DISC RECORDIST Appointment [facility] Cardiology Services [address] [place] [address] Jose R Pearson MD [address] [place] [address] Discharge Disposition: Discharged to home or Selfcare 03/23/2024 2:30 PM DISC RECORDIST Appointment [facility] [address] [place] [address] Jose R Pearson MD [address] [place] [address] Discharge Disposition: Discharged to home or Selfcare 03/30/2024 10:00 AM DISC RECORDIST Office Visit [facility] [address] [place] [address] Jose R Pearson MD [address] [place] [address] Discharge Disposition: Discharged to home or Selfcare 03/30/2024 10:30 AM DISC RECORDIST Lab [facility] Oncology Services [address] [place] [address] Discharge Disposition: Discharged to home or Selfcare 03/31/2024 1:00 PM DISC RECORDIST Clinical Support [facility] Oncology Services [address] [place] [address] Jose R Pearson MD [address] [place] [address] Discharge Disposition: Discharged to home or Selfcare 04/28/2024 1:30 PM DISC RECORDIST Clinical Support [facility] Oncology Services [address] [place] [address] Discharge Disposition: Discharged to home or Selfcare Scheduled Orders Name Type Priority Associated Diagnoses Orde r Schedule ADULT TRANS THORACIC ECHO 2D COMPLETE Imaging Routine Breast cancer metastasized to axillary lymph node, right (HCC) Expected: 03/21/2024, Expires: 07/26/2024 CT CHEST ABDOMEN AND PELVIS W CONTRAST Imaging Routine Breast cancer metastasized to axillary lymph node, right (HCC) Expected: 03/22/2024, Expires: 07/26/2024 documented as of this encounter Goals Goal Patient Goal Type Associated Problems Recent Progress Patient-Stated? 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) Mass overlapping multiple quadrants of right breast History of bilateral mastectomy Acquired absence of breast and nipple documented in this encounter Additional Health Concerns Assessment Noted Time PHQ-9 Depression Total Score: 0 04/01/19 20 9:00 AM DISC RECORDIST documented as of this encounter Care Teams Spd Tech Relationship Specialty Start Date End Date Iveth Guzman MD [address] [place] [address] PCP - General Family Medicine 05/02/23 Laurence Luque MD [address] [address] Consulting Physician General Surgery 02/01/15 Clemencia Bennett MD [address] [place] [address] Family Medicine 01/30/18 Sony Mcpherson MD [address] [address] Consulting Physician General Surgery 09/08/23 Jose R Pearson MD [address] [place], [place] [id number] Consulting Physician Medical Oncology 10/02/23 documented as of this encounter
--- OUTSIDE RECORDS SUMMARY | 2024-03-15 01:47 | XMS_ITS | Encounter Summary ---
Author Organization [facility] [employer] [facility] Care Team Providers Care Hand Meat Salter Name Role Phone Laurence Luque MD Unavailable + [phone] Clemencia Bennett MD Unavailable [phone] Iveth Guzman MD Primary Care Provider + [phone] Sony Mcpherson MD Unavailable [phone] Jose R Pearson MD Unavailable [phone] Encounter Details Date Type Department Care Team (Latest Contact Info) Description 01/07/2024 Travel Social History Tobacco Use Types Packs/Day [...] st Contact Info) Description 03/23/2024 1:00 PM BLADE GRINDER [facility] [address] [place] [address] Jose R Pearson MD [address] [place] [address] Discharge Disposition: Discharged to home or Selfcare 03/23/2024 2:30 PM BLADE GRINDER Appointment [facility] [address] [place] [address] Jose R Pearson MD [address] [place] [address] Discharge Disposition: Discharged to home or Selfcare 03/30/2024 10:00 AM BLADE GRINDER Office Visit [facility] Oncology Services [address] [place] [address] Jose R Pearson MD [address] [place] [address] Discharge Disposition: Discharged to home or Selfcare 03/30/2024 10:30 AM BLADE GRINDER Lab [facility] Oncology Services [address] [place] [phone] Discharge Disposition: Discharged to home or Selfcare 03/31/2024 1:00 PM BLADE GRINDER Clinical Support [facility] Oncology Services [address] [place] [address] Jose R Pearson MD 0 [place] [address] Discharge Disposition: Discharged to home or Selfcare 04/28/2024 1:30 PM BLADE GRINDER Clinical Support [facility] Oncology Services [address] [place] [phone] Discharge Disposition: Discharged to home or Selfcare documented as of this encounter Goals Goal Patient Goal Type Associated Problems Recent Progress Patient-Stated? Author Exercise 3x per week (30 min per time) Exercise Chica Louis MD documented as of this encounter Visit Diagnoses Not on filedocumented in this encounter Additional Health Concerns Assessment Noted Time PHQ-9 Depression Total Score: 0 04/01/19 20 9:00 AM BLADE GRINDER documented as of this encounter Care Teams Hand Meat Salter Relationship Specialty Start Date End Date Iveth Guzman MD [address] [place] [address] PCP - General Family Medicine 05/02/23 Laurence Luque MD [address] [address] Consulting Physician General Surgery 02/01/15 Clemencia Bennett MD [address] [place] [address] Family Medicine 01/30/18 Sony Mcpherson MD #[address] [address] Consulting Physician General Surgery 09/08/23 Jose R Pearson MD [address] [place] [address] Consulting Physician Medical Oncology 10/02/23 documented as of this encounter
--- OUTSIDE RECORDS SUMMARY | 2024-03-15 01:47 | XMS_ITS | Encounter Summary ---
Author Organization [facility] Address [address] 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) Jose R Pearson MD [address] [place] [address] Phone: tel: fax: [facility] Oncology Services [address] [place] [address] Phone: tel: fax: Referral ID Status Reason Start Date Expiration Date V isits Requested Visits Authorized [id number] Authorized 09/16/2023 1 16 Encounter Details Date Type Department Care Team (Latest Contact Info) Description 02/18/2024 1:00 PM FELT HOOKER Clinical Support [facility] Oncology Services [address] [place] [address] Jose R Pearson MD [address] [place] [address] Breast cancer metastasized to axillary lymph node, [...] Sign Reading Time Taken Comments Blood Pressure 130/82 02/18/2024 1:06 PM FELT HOOKER Pulse 56 02/18/2024 1:06 PM FELT HOOKER Temperature 36.1 ??C (96.9 ??F) 02/18/2024 1:06 PM CS T Respiratory Rate 16 02/18/2024 1:06 PM FELT HOOKER Oxygen Saturation 99% 02/18/2024 1:06 PM FELT HOOKER Inhaled Oxygen Concentration - - Weight - - Height - - Body Mass Index - - documented in this encounter Miscellaneous Notes * Interdisciplinary - Lalita Lee RN - 02/18/2024 1:00 PM CST Patient to treatment bay. VS obtained. Pt port accessed per company policy, flushed without difficulty. Site secured with dressing. Pt medicated without incident. At completion of infusion, site flushed with NS and heparin and port de-accessed. Site secured with bandaid. Pt left in safe disposition. HOOKER documented in this encounter Plan of Treatment Upcoming Encounters Date Type Department Care Team (Late st Contact Info) Description 03/23/2024 1:00 PM FELT HOOKER Appointment [facility] Cardiology Services [address] [place] [address] Jose R Pearson MD [address] [place] [address] Discharge Disposition: Discharged to home or Selfcare 03/23/2024 2:30 PM FELT HOOKER Appointment [facility] [address] [place] [address] Jose R Pearson MD [address] [place] [address] Discharge Disposition: Discharged to home or Selfcare 03/30/2024 10:00 AM FELT HOOKER Office Visit [facility] Oncology Services [address] [place] [address] Jose R Pearson MD [address] [place] [address] Discharge Disposition: Discharged to home or Selfcare 03/30/2024 10:30 AM FELT HOOKER Lab [facility] Oncology Services [address] [place] [address] Discharge Disposition: Discharged to home or Selfcare 03/31/2024 1:00 PM FELT HOOKER Clinical Support [facility] Oncology Services [address] [place] [address] Jose R Pearson MD [address] [place] [address] Discharge Disposition: Discharged to home or Selfcare 04/28/2024 1:30 PM FELT HOOKER Clinical Support [facility] Oncology Services [address] [place] [address] Discharge Disposition: Discharged to home or Selfcare [...] Site 0.9 % sodium chloride solution at 125 mL/hr, Intravenous, ONCE, 1 dose, On Fri02/18/24 at 1330Indications:Breast cancer metastasized to axillary lymph node, right (HCC) New Bag 02/18/2024 1:51 PM FELT HOOKER 250 mL 125 mL/hr Heparin Na (Pork) Lock Flsh PF SOLN 50 Units 50 Units, Intravenous, PRN, Starting on Fri02/18/24 at 1320, Until Fri02/18/24 at 1911, Line Care, Line care per [facility].Indications:Breast cancer metastasized to axillary lymph node, right (HCC),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 64.4 kg Order-specific weight), Intravenous, ONCE, 1 dose, On Fri02/18/24 at 1400, Administered by IV infusion; loading doses are infused over 90 minutes; maintenance doses may be infused over 30 minutes if tolerated. Do not administer with D5W. Do not administer IV push or by rapid bolus. 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) New Bag 02/18/2024 2:33 PM FELT HOOKER 378 mg documented in this encounter Additional Health Concerns Assessment Noted Time PHQ-9 Depression Total Score: 0 04/01/19 20 9:00 AM FELT HOOKER documented as of this encounter Care Teams Soapstoner Relationship Specialty Start Date End Date Iveth Guzman MD [address] [place] [address] PCP - General Family Medicine 05/02/23 Laurence Luque MD #[address] [address] Consulting Physician General Surgery 02/01/15 Clemencia Bennett MD [address] [place] [address] Family Medicine 01/30/18 Sony Mcpherson MD #[address] [address] Consulting Physician General Surgery 09/08/23 Jose R Pearson MD [address] [place] [address] Consulting Physician Medical Oncology 10/02/23 documented as of this encounter
--- OUTSIDE RECORDS SUMMARY | 2024-03-15 01:47 | XMS_ITS | Encounter Summary ---
Author Organization [facility] Address [address] [place] [address] Phone Care Team Providers Care Orthotist Name Role Phone Laurence Luque MD Unavailable Clemencia Bennett MD Unavailable Iveth Guzman MD Primary Care Provider [phone] Sony Mcpherson MD Unavailable Jose R Pearson MD Unavailable Encounter Details Date Type Department Care Team (Late st Contact Info) Description 02/17/2024 3:30 PM CAST SHELL GRINDER Lab [facility] Oncology Services [address] [place] [phone] Jose R Pearson MD [address] [place] [address] Breast cancer metastasized to axillary lymph node, right (HCC); Metastasis from HER2 positive carcinoma of [...] Sign Reading Time Taken Comments Blood Pressure - - Pulse - - Temperature - - Respiratory Rate - - Oxygen Saturation - - Inhaled Oxygen Concentration - - Weight 61.6 kg (135 lb 12.8 oz) 02/17/2024 3:00 PM CAST SHELL GRINDER Height - - Body Mass Index 25.66 01/27/2024 1:34 PM CAST SHELL GRINDER documented in this encounter Progress Notes * Lalita Lee RN - 02/17/2024 3:30 PM CST Patient ambulated to lab room. Labs drawn peripherally per MD order. Site secured with gauze and coban. Patient tolerated well and left lab room safely. SHELL GRINDER documented in this encounter Plan of Treatment Upcoming Encounters Date Type Department Care Team (Late st Contact Info) Description 03/23/2024 1:00 PM CAST SHELL GRINDER [facility] [address] [place] [address] Jose R Pearson MD [address] [place] [address] Discharge Disposition: Discharged to home or Selfcare 03/23/2024 2:30 PM CAST SHELL GRINDER [facility] [address] [place] [address] Jose R Pearson MD [address] [place] [address] Discharge Disposition: Discharged to home or Selfcare 03/30/2024 10:00 AM CAST SHELL GRINDER [facility] [address] [place] [address] Jose R Pearson MD [address] [place] [address] Discharge Disposition: Discharged to home or Selfcare 03/30/2024 10:30 AM CAST SHELL GRINDER Lab [facility] Oncology Services [address] [place] [address] Discharge Disposition: Discharged to home or Selfcare 03/31/2024 1:00 PM CAST SHELL GRINDER Clinical Support [facility] Oncology Services [address] [place] [address] Jose R Pearson MD [address] [place] [address] Discharge Disposition: Discharged to home or Selfcare 04/28/2024 1:30 PM CAST SHELL GRINDER Clinical Support [facility] Oncology Services [address] [place] [address] Discharge Disposition: Discharged to home or Selfcare documented as of this encounter Goals Goal Patient Goal Type Associated Problems Recent Progress Patient-Stated? 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) COMPLETE BLOOD COUNT (CBC) WITH DIFF STAT 02/17/2024 3:40 PM CAST SHELL GRINDER Breast cancer metastasized to axillary lymph node, 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) documented in this encounter Results * (ABNORMAL) CBC WITH AUTO DIFFERENTIAL (02/17/2024 3:40 PM [facility]) [facility] WBC 5.56 4.00 - 12.00 10(3)/mcL 02/17/2024 4:43 PM [facility] RBC 3.74(L) 3.80 - 5.30 10(6)/mcL 02/17/2024 4:43 PM [facility] HEMOGLOBIN (HGB) 11.9(L) 12.0 - 15.8 g/dL 02/17/2024 4:43 PM [facility] HEMATOCRIT (HCT) 36.6 36.0 - 47.0 % 02/17/2024 4:43 PM [facility] MCV 97.9(H) 82.0 - 96.0 fL 02/17/2024 4:43 PM [facility] MCH 31.8 26.0 - 34.0 pg 02/17/2024 4:43 PM [facility] MCHC 32.5 31.0 - 36.0 g/dL 02/17/2024 4:43 PM [facility] PLATELET COUNT 192 140 - 440 10(3)/[facility] 02/17/2024 4:43 PM [facility] RDW 13.1 11.8 - 15.5 % 02/17/2024 4:43 PM [facility] MPV 10.2 9.7 - 12.4 fL 02/17/2024 4:43 PM [facility] NEUTROPHILS 40.3(L) 47.0 - 73.0 % 02/17/2024 4:43 PM [facility] LYMPHOCYTES 44.4(H) 18.0 - 42.0 % 02/17/2024 4:43 PM [facility] MONOCYTES 5.2 4.0 - 12.0 % 02/17/2024 4:43 PM [facility] EOSINOPHILS 9.4(H) 0.0 - 5.0 % 02/17/2024 4:43 PM [facility] BASOPHILS 0.7 0.0 - 1.0 % 02/17/2024 4:43 PM CAST SHELL GRINDER [facility] ABSOLUTE NEUTROPHIL[facility] 2.24 1.60 - 7.70 10(3)/[facility] 02/17/2024 4:43 PM CAST SHELL GRINDER [facility] ABSOLUTE LYMPHOCYTES 2.47 1.30 - 3.20 10(3)/[facility] 02/17/2024 4:43 PM CAST SHELL GRINDER [facility] ABSOLUTE MONOCYTES 0.29 0.20 - 1.00 10(3)/[facility] 02/17/2024 4:43 PM CAST SHELL GRINDER [facility] ABSOLUTE EOSINOPHIL 0.52(H) 0.00 - 0.40 10(3)/[facility] 02/17/2024 4:43 PM CAST SHELL GRINDER [facility] ABSOLUTE BASOPHILS 0.04 0.00 - 0.10 10(3)/[facility] 02/17/2024 4:43 PM CAST SHELL GRINDER [facility] NRBC PER 100 WBC 0 02/17/20 24 4:43 PM CAST SHELL GRINDER [facility] Blood Venipuncture / Unknown 02/17/2024 3:40 PM CAST SHELL GRINDER 02/17/2024 3:40 PM CAST SHELL GRINDER Jose R Pearson MD HEMATOLOGY ORDERABLES Fi nal Result [facility] [address] [place] [address] * (ABNORMAL) CMP (COMPREHENSIVE METABOLIC PANEL) (02/17/2024 3:40 PM CAST SHELL GRINDER) SODIUM 144 136 - 145 mmol/L 02/17/2024 4:59 PM CAST SHELL GRINDER [facility] POTASSIUM 3.7 3.5 - 5.1 mmol/L 02/17/2024 4:59 PM CAST SHELL GRINDER [facility] CHLORIDE 112(H) 98 - 107 mmol/L 02/17/2024 4:59 PM CAST SHELL GRINDER [facility] CO2, VENOUS 26 22 - 30 mmol/L 02/17/2024 4:59 PM [facility] ANION GAP 9.7 <18.0 mmol/L 02/17/2024 4:59 PM [facility] GLUCOSE 96 70 - 99 mg/dL 02/17/2024 4:59 PM [facility] BUN 8(L) 10 - 20 mg/dL 02/17/2024 4:59 PM [facility] CREATININE, BLOOD 0.68 0.60 - 1.00 mg/dL 02/17/2024 4:59 PM [facility] BUN/CREATININE RATIO 12 - 20 ratio 02/17/2024 4:59 PM [facility] TOTAL PROTEIN 6.3 6.3 - 8.2 g/dL 02/17/2024 4:59 PM [facility] ALBUMIN 3.9 3.5 - 5.0 g/dL 02/17/2024 4:59 PM [facility] A/G RATIO 1.6 1.0 - 2.2 02/17/2024 4:59 PM [facility] CALCIUM 9.1 8.7 - 10.5 mg/dL 02/17/2024 4:59 PM [facility] T BILI 0.2 0.2 - 1.2 mg/dL 02/17/2024 4:59 PM [facility] SGOT (AST) 41(H) 5 - 34 U/L 02/17/2024 4:59 PM [facility] SGPT (ALT) 35 0 - 55 U/L 02/17/2024 4:59 PM [facility] ALKALINE PHOSPHATASE 76 40 - 150 U/L 02/17/2024 4:59 PM [facility] IS THE PATIENT REQUIRED TO BE FASTING? No 02/17/2024 4:59 PM [facility] GFR, ESTIMATED >60 >=60 02/17/2024 4:59 PM [facility] Comment: Creatinine Clearance is the preferred criteria for selecting drug dose adjustments in renally impaired patients. ??The GFR is provided as additional pertinent clinical information. GFR is reported in mL/min/1.73 sq m. Calculation based on the Chronic Kidney Disease Epidemiology Collaboration (CKD- EPI) equation refit without adjustment for race. GFR, EST. >60 >=60 024 4:59 PM CAST SHELL GRINDER [facility] GFR, EST. 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) documented in this encounter Additional Health Concerns Assessment Noted Time PHQ-9 Depression Total Score: 0 04/01/19 20 9:00 AM CAST SHELL GRINDER documented as of this encounter Care Teams Orthotist Relationship Specialty Start Date End Date Iveth Guzman MD [address] [place] [address] PCP - General Family Medicine 05/02/23 Laurence Luque MD #[address] [address] Consulting Physician General Surgery 02/01/15 Clemencia Bennett MD [address] [place] [address] Family Medicine 01/30/18 Sony Mcpherson MD #[address] [address] Consulting Physician General Surgery 09/08/23 Jose R Pearson MD [address] [place] [address] Consulting Physician Medical Oncology 10/02/23 documented as of this encounter
--- OUTSIDE RECORDS SUMMARY | 2024-03-15 01:47 | XMS_ITS | Clinical Summary ---
Author Organization [facility] Address [address] [place] [address] Phone Care Team Providers Care Floor Worker [place] Name Role Phone Laurence Luque MD Unavailable Clemencia Bennett MD Unavailable [phone] Iveth Guzman MD Primary Care Provider + [phone] Sony Mcpherson MD Unavailable Jose R Pearson MD Unavailable [phone] Allergies No known active allergies Medications Multiple Vitamin (MULTI-VITAMIN PO) Take 1 Tab by mouth daily. Active triamcinolone (KENALOG) 0.1 % CreamIndications:A naphylaxis, sequela,Hives Application Site:apply sparingly bid to affected area 45 g 2 10/15/19 23 Active Cholecalciferol (Vitamin D) 2000 UNIT Tablet Take 1 Tablet by mouth daily. 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 21 day cycle. 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 Take one tablet every 6 hours as needed for nausea. 40 Tablet 2 09/23/19 24 Active Additional Information Patient not taking.Reported on 01/27/2024 LORazepam (ATIVAN) 0.5 MG TabletIndications: Recurrent malignant neoplasm of right breast (HCC) Take 1 Tablet by mouth every 8 hours as needed for Anxiety. 30 Tablet 2 10/02/19 24 Active metoprolol tartrate (LOPRESSOR) 25 MG TabletIndications: Essential hypertension Take 1 tablet by mouth twice daily 180 Tablet 10/30/19 24 Active letrozole (FEMARA) 2.5 MG Tablet Take 1 Tablet by mouth daily 30 Tablet 4 01/27/20 24 Active atorvastatin (LIPITOR) 10 MG TabletIndications: Hyperlipidemia, unspecified hyperlipidemia type Take 1 tablet by mouth once daily 90 Tablet 02/13/20 24 Active Active Problems Problem Noted Date Diagnosed Date [...] Gastroesophageal reflux disease 06/01/2015 Mitral valve prolapse Resolved Problems Problem Noted Date Diagnosed Date Resolved Date Chemotherapy induced diarrhea 12/16/2023 01/27/2024 Chemotherapy-induced nausea 12/16/2023 01/27/2024 Cancer of right female breast 06/01/2015 02/21/2016 Encounters Date Type Department Care Team Description 03/11/2024 1:00 PM MACHINING MANAGER Clinical Support [facility] [address] [place] [address] Jose R Pearson MD 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) (Primary Dx); Breast cancer metastasized to axillary lymph node, right (HCC) Discharge Disposition: Discharged to home or Selfcare 03/11/2024 Travel 03/03/2024 1:30 PM MACHINING MANAGER Clinical Support [facility] [address] [place] [address] Jose R Pearson MD Breast cancer metastasized to axillary lymph node, right (HCC) (Primary Dx); 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) Discharge Disposition: Discharged to home or Selfcare 03/03/2024 Travel 02/20/2024 [facility] [address] [place] [phone] Jose R Pearson MD 02/18/2024 1:00 PM MACHINING MANAGER Clinical Support [facility] [address] [place] [phone] Jose R Pearson MD Breast cancer metastasized to axillary lymph node, right (HCC) (Primary Dx); 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) Discharge Disposition: Discharged to home or Selfcare 02/18/2024 Travel 02/17/2024 3:30 PM MACHINING MANAGER Lab [facility] [address] [place] [address] Jose R Pearson MD Breast cancer metastasized to axillary lymph node, right (HCC); 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) Discharge Disposition: Discharged to home or Selfcare 02/17/2024 Travel 02/13/2024 Refill [facility] [place] [address] [place] [address] Iveth Guzman MD Medication Refill 02/05/2024 Documentation Only [facility] [address] [place] [phone] Jose R Pearson MD 02/04/2024 2:00 PM MACHINING MANAGER Clinical Support [facility] [address] [place] [phone] Jose R Pearson MD Breast cancer metastasized to axillary lymph node, right (HCC) (Primary Dx); 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) Discharge Disposition: Discharged to home or Selfcare 02/04/2024 Travel 01/28/2024 1:00 PM MACHINING MANAGER Clinical Support [facility] [address] [place] [phone] Jose R Pearson MD Breast cancer metastasized to axillary lymph node, right (HCC) (Primary Dx); 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) Discharge Disposition: Discharged to home or Selfcare 01/28/2024 Travel 01/27/2024 1:20 PM MACHINING MANAGER Office Visit [facility] [address] [place] [phone] Jose R Pearson MD Breast cancer metastasized to axillary lymph node, right (HCC) (Primary Dx); Drug-induced cardiomyopathy (HCC); 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); Mass overlapping multiple quadrants of right breast; History of bilateral mastectomy Discharge Disposition: Discharged to home or Selfcare 01/27/2024 1:00 PM MACHINING MANAGER Clinical Support [facility] [address] [place] [phone] Jose R Pearson MD Breast cancer metastasized to axillary lymph node, right (HCC) (Primary Dx); 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) Discharge Disposition: Discharged to home or Selfcare 01/27/2024 Travel 01/09/2024 Telephone [facility] [address] [place] [phone] Jose R Pearson MD 01/07/2024 1:00 PM CDT Clinical Support [facility] [address] [place] [address] Jose R Pearson MD Breast cancer metastasized to axillary lymph node, right (HCC) (Primary Dx); 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) Discharge Disposition: Discharged to home or Selfcare 01/07/2024 Travel 01/06/2024 1:20 PM CDT Clinical Support [facility] [address] [place] [phone] Jose R Pearson MD Breast cancer metastasized to axillary lymph node, right (HCC) (Primary Dx); 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) Discharge Disposition: Discharged to home or Selfcare 01/06/2024 Travel 01/01/2024 [facility] [address] [place] [phone] Jose R Pearson MD 12/24/2023 1:00 PM CDT Clinical Support [facility] [address] [place] [phone] Jose R Pearson MD Breast cancer metastasized to axillary lymph node, right (HCC) (Primary Dx); 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 Card[facility] Services [address] [place] [phone] Jose R Pearson MD Discharge Disposition: Discharged to home or Selfcare 12/20/2023 7:23 AM CDT - 12/20/2023 11:59 PM CDT [facility] [address] [facility] [place] [address] Jose R Pearson MD Discharge Disposition: Discharged to home or Selfcare 12/20/2023 Travel 12/17/2023 9:00 AM CDT Clinical Support [facility] [address] [place] [phone] Jose R Pearson MD Breast cancer metastasized to axillary lymph node, right (HCC) (Primary Dx); 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) Discharge Disposition: Discharged to home or Selfcare 12/17/2023 Travel 12/16/2023 1:40 PM CDT Clinical Support [facility] [address] [place] [address] Jose R Pearson MD Breast cancer metastasized to axillary lymph node, right (HCC); 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) Discharge Disposition: Discharged to home or Selfcare 12/16/2023 1:00 PM CDT Office Visit [facility] [address] [place] [address] Jose R Pearson MD Breast cancer metastasized to axillary lymph node, right (HCC) (Primary Dx); Drug-induced cardiomyopathy (HCC); Lung nodule; History of bilateral mastectomy; Chemotherapy induced diarrhea; Dysgeusia; Chemotherapy-induced nausea Discharge Disposition: Discharged to home or Selfcare 12/16/2023 Travel from Last 3 Months Immunizations Immunization Administration Dates Next Due COVID-19, MRNA, LNP-S, BIVAL ENT , PFIZER, 30 MCG/0.3 ML (12+ Y/O) 12/27/2021 DTAP VACCINE 07/15/2012 Influenza Vaccine greater than 3 yrs 12/15/2021, 12/16/2016,12/15/2013 Influenza Vaccine, Quadrivalent, PF 12/16,12/15/2021,12/14/2020,2019,03/04/2019,01/13/2018,11/29/2014 PUR FLU 3+ YRS PRES FREE QUAD IM 12/08/2015 TDAP Vaccine 07/21/2022 Zoster Vaccine Recombinant 10/10/2021,08/09/2021 Family History Medical History Relation Name Comments Heart Attack Father Ovarian Cancer Half-Sister Congestive Heart Failure Mother Relation Name Status Comments Father Half-Sister Other Mother Social History Tobacco Use Types Packs/Day Years Used Date Smoking Tobacco: Never Smokeless Tobacco: Never Tobacco Cessation:Counseling Given: Not Answered Alcohol Use Standard Drinks/Week Comments Yes 0 [...] on file Sexual Orientation Not on file Last Filed Vital Signs Vital Sign Reading Time Taken Comments Blood Pressure 177/97 03/11/2024 1:11 PM MACHINING MANAGER asymptomatic Pulse 58 03/11/2024 1:11 PM MACHINING MANAGER Temperature 35.8 ??C (96.5 ??F) 03/11/2024 1 :11 PM MACHINING MANAGER Respiratory Rate 16 03/11/2024 1:11 PM MACHINING MANAGER Oxygen Saturation 99% 03/11/2024 1:1 1 PM MACHINING MANAGER Inhaled Oxygen Concentration - - Weight 62.3 kg (137 lb 4.8 oz) 03/11/20 24 1:11 PM MACHINING MANAGER Height 154.9 cm (5' 1 ) 01/27/2024 1:34 PM MACHINING MANAGER Body Mass Index 25.94 01/27/2024 1:34 PM MACHINING MANAGER Plan of Treatment Upcoming Encounters Date Type Department Care Team (Late st Contact Info) Description 03/23/2024 1:00 PM MACHINING MANAGER Appointment [facility] [address] [place] [phone] Jose R Pearson MD [address] [place] [address] Discharge Disposition: Discharged to home or Selfcare 03/23/2024 2:30 PM MACHINING MANAGER Appointment [facility] [address] [place] [address] Jose R Pearson MD [address] [place] [address] Discharge Disposition: Discharged to home or Selfcare 03/30/2024 10:00 AM MACHINING MANAGER Office Visit [facility] [address] [place] [address] Jose R Pearson MD [address] [place] [address] Discharge Disposition: Discharged to home or Selfcare 03/30/2024 10:30 AM MACHINING MANAGER Lab [facility] [address] [place] [address] Discharge Disposition: Discharged to home or Selfcare 03/31/2024 1:00 PM MACHINING MANAGER Clinical Support [facility] [address] [place] [address] Jose R Pearson MD [address] [place] [address] Discharge Disposition: Discharged to home or Selfcare 04/28/2024 1:30 PM MACHINING MANAGER Clinical Support [facility] [address] [place] [phone] Discharge Disposition: Discharged to home or Selfcare Health Maintenance Due Date Last Done Comments Hepatitis C Virus (HCV) Screening 1970 Pneumococcal Immunization (50+ years) (1 of 2 - PCV) 1987 Cologuard 2018 Immunochemical Fecal Occult Blood 2018 Colonoscopy 10/01/2023 09/30/2018 Colorectal Cancer Screening 10/01/2023 Pap Smear 11/11/2023 11/10/2020, 10/16, 04/17/2019, Additional history exists Influenza Immunization (#1) 11/16/202312/16, 12/15/2021, 12/15/2021, Additional history exists SARS-COV-2 Immunization ( season) 2023 03/11/2023, 12/27/2021, 02/13/2021, Additional history exists Cervical Cancer Screening (CCS) 11/10/2025 HPV/Cotest 11/10/2025 11/10/2020 Td Immunization Every 10 Years (Adults With 1 Tdap) 07/21/2032 07/21/2022 Respiratory Syncytial Virus (RSV) Immunization (Adult) (1 - 1-dose 75+ series) 2043 09/30/2018 Zoster Immunization Completed 10/10/2021, Hepatitis B Immunization Discontinued Meningococcal Immunization (ACWY) Aged Out No longer eligible based on patient's age to complete this topic Rotavirus Immunization Aged Out No lo nger eligible based on patient's age to complete this topic Goals Goal Patient Goal Type Associated Problems Recent Progress Patient-Stated? Author Exercise 3x per week (30 min per time) Exercise No Chica Saldana MD Medical Devices Implanted Type Area [employer] Supervisor Device Identifier Shelf Expiration Date Model / Serial / Lot Port Infusion 8fr 63cm Pwr Inj Plastic Single Filled Smart Port Detached Poly Cath Valved [facility] - [id number] Implanted:Qty : 1 on 09/23/2023 by Sony Mcpherson MD at [facility] IMPLANT Left: [employer] 05/14/2026 [id number] / [id number] / [id number] Procedures Procedure Name Priority Date/Time Associated Diagnosis Comments CBC WITH AUTO DIFFERENTIAL STAT 03/11/2024 1:02 PM MACHINING MANAGER Breast cancer metastasized to axillary lymph node, 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) CMP (COMPREHENSIVE METABOLIC PANEL) STAT 03/11/2024 1:02 PM MACHINING MANAGER Breast cancer metastasized to axillary lymph node, 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) COMPLETE BLOOD COUNT (CBC) WITH DIFF STAT 03/11/2024 1:02 PM MACHINING MANAGER Breast cancer metastasized to axillary lymph node, 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) CBC WITH AUTO DIFFERENTIAL STAT 02/17/2024 3:40 PM MACHINING MANAGER Breast cancer metastasized to axillary lymph node, 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) COMPLETE BLOOD COUNT (CBC) WITH DIFF STAT 02/17/2024 3:40 PM MACHINING MANAGER Breast cancer metastasized to axillary lymph node, 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) CMP (COMPREHENSIVE METABOLIC PANEL) STAT 02/17/2024 3:40 PM MACHINING MANAGER Breast cancer metastasized to axillary lymph node, 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) CBC WITH AUTO DIFFERENTIAL STAT 01/27/2024 1:02 PM MACHINING MANAGER Breast cancer metastasized to axillary lymph node, 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) CMP (COMPREHENSIVE METABOLIC PANEL) STAT 01/27/2024 1:02 PM MACHINING MANAGER Breast cancer metastasized to axillary lymph node, 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) COMPLETE BLOOD COUNT (CBC) WITH DIFF STAT 01/27/2024 1:02 PM MACHINING MANAGER Breast cancer metastasized to axillary lymph node, 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) CBC WITH AUTO DIFFERENTIAL STAT 01/06/2024 12:58 PM CDT Breast cancer metastasized to axillary lymph node, 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) CMP (COMPREHENSIVE METABOLIC PANEL) STAT 01/06/2024 12:58 PM CDT Breast cancer metastasized to axillary lymph node, 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) COMPLETE BLOOD COUNT (CBC) WITH DIFF STAT 01/06/2024 12:58 PM CDT Breast cancer metastasized to axillary lymph node, 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) ADULT TRANS THORACIC ECHO 2D COMPLETE Routine 12/23/2023 11:43 AM CDT Breast cancer metastasized to axillary lymph node, right (HCC) Drug-induced cardiomyopathy (HCC) CT CHEST ABDOMEN AND PELVIS W CONTRAST Routine 12/20/2023 7:43 AM CDT Breast cancer metastasized to axillary lymph node, 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) CBC WITH AUTO DIFFERENTIAL STAT 12/16/2023 1:47 PM CDT Breast cancer metastasized to axillary lymph node, 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) CMP (COMPREHENSIVE METABOLIC PANEL) STAT 12/16/2023 1:47 PM CDT Breast cancer metastasized to axillary lymph node, 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 WBC 7.59 4.00 - 12.00 10(3)/mcL 03/11/2024 1:11 PM MACHINING MANAGER [facility] RBC 3.98 3.80 - 5.30 10(6)/mcL 03/11/2024 1:11 PM MACHINING MANAGER [facility] HEMOGLOBIN (HGB) 12.7 12.0 - 15.8 g/dL 03/11/2024 1:11 PM [facility] HEMATOCRIT (HCT) 37.3 36.0 - 47.0 % 03/11/2024 1:11 PM [facility] MCV 93.7 82.0 - 96.0 fL 03/11/2024 1:11 PM [facility] MCH 31.9 26.0 - 34.0 pg 03/11/2024 1:11 PM [facility] MCHC 34.0 31.0 - 36.0 g/dL 03/11/2024 1:11 PM [facility] PLATELET COUNT 198 140 - 440 10(3)/[facility] 03/11/2024 1:11 PM [facility] RDW 13.0 11.8 - 15.5 % 03/11/2024 1:11 PM [facility] MPV 9.5(L) 9.7 - 12.4 fL 03/11/2024 1:11 PM [facility] NEUTROPHILS 57.3 47.0 - 73.0 % 03/11/2024 1:11 PM [facility] LYMPHOCYTES 31.2 18.0 - 42.0 % 03/11/2024 1:11 PM [facility] MONOCYTES 5.8 4.0 - 12.0 % 03/11/2024 1:11 PM [facility] EOSINOPHILS 5.3(H) 0.0 - 5.0 % 03/11/2024 1:11 PM [facility] BASOPHILS 0.4 0.0 - 1.0 % 03/11/2024 1:11 PM [facility] ABSOLUTE NEUTROPHILS 4.35 1.60 - 7.70 10(3)/mcL 03/11/2024 1:11 PM [facility] ABSOLUTE LYMPHOCYTES 2.37 1.30 - 3.20 10(3)/mcL 03/11/2024 1:11 PM [facility] ABSOLUTE MONOCYTES 0.44 0.20 - 1.00 10(3)/mcL 03/11/2024 1:11 PM MACHINING MANAGER [facility] ABSOLUTE EOSINOPHIL 0.40 0.00 - 0.40 10(3)/mcL 03/11/2024 1:11 PM MACHINING MANAGER [facility] ABSOLUTE BASOPHILS 0.03 0.00 - 0.10 10(3)/mcL 03/11/2024 1:11 PM MACHINING MANAGER [facility] NRBC PER 100 WBC 0 03/11/20 1:11 PM MACHINING MANAGER [facility] Blood Venipuncture / Unknown 03/11/2024 1:02 PM MACHINING MANAGER 03/11/2024 1:02 PM MACHINING MANAGER us Jose R Pearson MD HEMATOLOGY ORDERABLES Fi nal Result [facility] [address] [place] [address] * (ABNORMAL) CMP (COMPREHENSIVE METABOLIC PANEL) (03/11/2024 1:02 PM MACHINING MANAGER) Only the most recent of5 resultswithin the time period is included. SODIUM 142 136 - 145 mmol/L 03/11/2024 1:28 PM [facility] POTASSIUM 3.5 3.5 - 5.1 mmol/L 03/11/2024 1:28 PM [facility] CHLORIDE 108(H) 98 - 107 mmol/L 03/11/2024 1:28 PM [facility] CO2, VENOUS 24 22 - 30 mmol/L 03/11/2024 1:28 PM [facility] ANION GAP 13.5 <18.0 mmol/L 03/11/2024 1:28 PM [facility] GLUCOSE 95 70 - 99 mg/dL 03/11/2024 1:28 PM [facility] BUN 9(L) 10 - 20 mg/dL 03/11/2024 1:28 PM [facility] CREATININE, BLOOD 0.72 0.60 - 1.00 mg/dL 03/11/2024 1:28 PM [facility] BUN/CREATININE RATIO 13 12 - 20 ratio 03/11/2024 1:28 PM [facility] TOTAL PROTEIN 6.6 6.3 - 8.2 g/dL 03/11/2024 1:28 PM [facility] ALBUMIN 3.8 3.5 - 5.0 g/dL 03/11/2024 1:28 PM [facility] A/G RATIO 1.4 1.0 - 2.2 03/11/2024 1:28 PM [facility] CALCIUM 9.0 8.7 - 10.5 mg/dL 03/11/2024 1:28 PM [facility] T BILI 0.3 0.2 - 1.2 mg/dL 03/11/2024 1:28 PM [facility] SGOT (AST) 35(H) 5 - 34 U/L 03/11/2024 1:28 PM [facility] SGPT (ALT) 53 0 - 55 U/L 03/11/2024 1:28 PM [facility] ALKALINE PHOSPHATASE 68 40 - 150 U/L 03/11/2024 1:28 PM [facility] IS THE PATIENT REQUIRED TO BE FASTING? No 03/11/2024 1:28 PM [facility] GFR, ESTIMATED >60 >=60 03/11/2024 1:28 PM [facility] Comment: Creatinine Clearance is the preferred criteria for selecting drug dose adjustments in renally impaired patients. ??The GFR is provided as additional pertinent clinical information. GFR is reported in mL/min/1.73 sq m. Calculation based on the Chronic Kidney Disease Epidemiology Collaboration (CKD- EPI) equation refit without adjustment for race. GFR, EST. >60 >=60 024 1:28 PM [facility] GFR, EST. NONAFRICAN >60 >=60 03/11/2024 1:28 PM [facility] Blood Venipuncture / Unknown 03/11/2024 1:02 PM MACHINING MANAGER 03/11/2024 1:02 PM MACHINING MANAGER us Jose R Pearson MD CHEMISTRY ORDERABLES Fin al Result [facility] [facility] [place] [address] * ADULT TRANS THORACIC ECHO 2D COMPLETE (12/23/2023 11:43 AM CDT) AV Peak Grad mmHg 6.55 mmHg RESULTING AGENCY Mean Aortic Valve Gradient (MAVG) 3 mmHg RESULTING AGENCY LV end jenelle diam cm 4.25 cm RESULTING AGENCY LV end sys diam cm 2.76 cm RESULTING AGENCY Aortic Root Diam cm 2.1 cm RESULTING AGENCY LVOT Peak Maykel m/sec 1.04 m/sec RESULTING AGENCY AV Peak Maykel m/sec 1.28 m/sec RESULTING AGENCY MV Mean Grad mmHg 1 mmHg RESULTING AGENCY MVA by PHT cm2 4.07 cm2 RESUL TING AGENCY E/A Ratio 1.06 RESULTING AGENCY TR Maykel m/sec 2.55 m/sec RESULTI NG AGENCY E/E' 10.8 RESULTING AGENCY AV Area (VTI) cm2 2.25 cm2 RESULTING AGENCY SEPTUM DIASTOLIC CM 0.75 cm RESULTING AGENCY PW DIASTOLIC CM 1.11 cm RESU LTING AGENCY Anatomical Region Laterality Modality CARDIO N/A Ultrasound Narrative 12/23/2023 5:02 PM CDT Transthoracic Echocardiography Report (TTE) Patient name ? DEREK Cash ? 1970 Patient ID (UPI) ? [id number] ? Indications: Adverse Effect of Chemotherapy and Hypertension. Study Date12/23/2023 Technical quality: Adequate Type of Study: TTE procedure: Adult Trans Thoracic Echo 2D Complete. Priority:RoutineHR: 55 bpmBP: 136/82 mmHg Conclusions Summary The left ventricle is normal in size. Wall thickness is normal. LV function is normal. There are no regional wall motion abnormalities. LV EF of 55-60% Grade I diastolic dysfunction. The mitral valve is normal. There is no evidence of mitral stenosis. Trace mitral regurgitation is present. could not appreciate mitral valve prolapse documented in notes. Findings Mitral Valve The mitral valve is normal. There is no evidence of mitral stenosis. Trace mitral regurgitation is present. could not appreciate mitral valve prolapse documented in notes. Aortic Valve The aortic valve is trileaflet with normal leaflet excursion. There is no evidence of aortic valve stenosis. There is no significant aortic valve insufficiency. Tricuspid Valve The tricuspid valve is normal. There is no evidence of tricuspid stenosis. Trace tricuspid valve regurgitation. In sufficient Jet for RVSP measurement. Pulmonic Valve The pulmonic valve structure appears normal. There is no evidence of pulmonic stenosis. There is no significant pulmonic valve regurgitation. Left Atrium The left atrium size is normal. Left Ventricle The left ventricle is normal in size. Wall thickness is normal. LV function is normal. There are no regional wall motion abnormalities. LV EF of 55-60% Grade I diastolic dysfunction. Right Atrium The right atrium size is normal. Right Ventricle Normal right ventricular cavity size and normal systolic function. Pericardial Effusion The pericardium is normal. There is no pericardial effusion visualized. Miscellaneous IVC is normal in size and respiratory response. Aortic arch appears normal. Valves Mitral Valve Area (PHT): 4.07 cm^2 ? Area (continuity): 1.68 cm^2 Peak E-Wave: 0.91 m/s ? Mean Velocity: 0.50 m/s Peak A-Wave: 0.86 m/s ? Mean Gradient: 1 mmHg Peak Gradient: 3.36 mmHg ?Deceleration Time: 184 msec P1/2t: 54 msec Tissue Doppler E' Velocity: 0.08 m/s ? E/E':10.8 E/A Ratio: 1.06 ? E/Lat E': 10.8 ? E/Med E':10.9 Aortic Valve Area (continuity): 2.25 cm^2 ? Mean Velocity: 0.87 m/s Area (VTI):2.25 cm^2 ? Mean Gradient: 3 mmHg Peak Velocity: 1.28 m/s ?AV VTI: 26.2 cm Peak Gradient: 6.55 mmHg Tricuspid Valve Peak E-Wave: 0.49 m/s Peak Gradient: 0.99 mmHg TR Velocity: 2.55 m/s TR Gradient: 26.01 mmHg Pulmonic Valve Peak Velocity: 0.91 m/s ?Mean Velocity: 0.72 m/s Peak Gradient: 3.37 mmHg ? Mean Gradient: 2 mmHg LVOT Peak Velocity: 1.04 m/s ? Mean Velocity: 0.65 m/s Peak Gradient: 4 mmHg ? Mean Gradient: 2 mmHg LVOT Diameter: 1.9 cm ? LVOT VTI: 20.8 cm Stroke Volume: 59 ml ?Stroke Volume Index: 36.2 ml/m^2 Structures Left Ventricle Diastolic Dimension: 4.25 cm ? Systolic Dimension: 2.76 cm Septum Diastolic: 0.75 cm ?Septum Systolic: 1.15 cm PW Diastolic: 1.11 cm ?PW Systolic: 1.67 cm Diastolic Length: 16 cm ?Systolic Length: 11.4 cm CO: 3.24 l/min ? CI: 1.99 l/min*m^2 RWT: 0.52 FS: 35.06 % ?LV EDV: 39.2 ml LV Length: 7.1 cm ?LV EDV Index: 24 m^2 LVOT Diameter: 1.9 cm Global Longitudinal Strain:-20.4 Right Ventricle ? RVOT (PLAX) diameter:3.06 cm Tissue Doppler RV S': 9.46 TAPSE: 2.67 cm Left Atrium LA Systolic Pressure: 15.5 mmHg ? LA Area: 12.2 cm^2 Right Atrium ? RA Area: 11 cm^2 Great Vessels Aorta ? Ascending Aorta: 2.7 cm Aorta Root:2.1 cm ? Ascending Aorta Index:1.66 cm/m^2 Demographics Age ?53 ? Gender ?Female Race ?Height ?60.98 in. ? Weight ?142 lbs. ? BMI (BSA) ? 26.84 kg/m^2 (1.63 ? m^2) Equipment Monitor Phototypesetting ?Rigoberto Weeks Interpreting ? Barrett ?Referring Physician ?Justin ? Physician Procedure Note Justin Hyde MD - 12/23/2023 Transthoracic Echocardiography Report (TTE) Patient name DEREK Garcia.O.B. 1970 Patient ID (UPI) [id number] Indications: Adverse Effect of Chemotherapy and Hypertension. Study Date12/23/2023 Technical quality: Adequate Type of Study: TTE procedure: Adult Trans Thoracic Echo 2D Complete. Priority:RoutineHR: 55 bpmBP: 136/82 mmHg Conclusions Summary The left ventricle is normal in size. Wall thickness is normal. LV function is normal. There are no regional wall motion abnormalities. LV EF of 55-60% Grade I diastolic dysfunction. The mitral valve is normal. There is no evidence of mitral stenosis. Trace mitral regurgitation is present. could not appreciate mitral valve prolapse documented in notes. Findings Mitral Valve The mitral valve is normal. There is no evidence of mitral stenosis. Trace mitral regurgitation is present. could not appreciate mitral valve prolapse documented in notes. Aortic Valve The aortic valve is trileaflet with normal leaflet excursion. There is no evidence of aortic valve stenosis. There is no significant aortic valve insufficiency. Tricuspid Valve The tricuspid valve is normal. There is no evidence of tricuspid stenosis. Trace tricuspid valve regurgitation. In sufficient Jet for RVSP measurement. Pulmonic Valve The pulmonic valve structure appears normal. There is no evidence of pulmonic stenosis. There is no significant pulmonic valve regurgitation. Left Atrium The left atrium size is normal. Left Ventricle The left ventricle is normal in size. Wall thickness is normal. LV function is normal. There are no regional wall motion abnormalities. LV EF of 55-60% Grade I diastolic dysfunction. Right Atrium The right atrium size is normal. Right Ventricle Normal right ventricular cavity size and normal systolic function. Pericardial Effusion The pericardium is normal. There is no pericardial effusion visualized. Miscellaneous IVC is normal in size and respiratory response. Aortic arch appears normal. Valves Mitral Valve Area (PHT): 4.07 cm^2 Area (continuity): 1.68 cm^2 Peak E-Wave: 0.91 m/s Mean Velocity: 0.50 m/s Peak A-Wave: 0.86 m/s Mean Gradient: 1 mmHg Peak Gradient: 3.36 mmHg Deceleration Time: 184 msec P1/2t: 54 msec Tissue Doppler E' Velocity: 0.08 m/s E/E':10.8 E/A Ratio: 1.06 E/Lat E': 10.8 E/Med E':10.9 Aortic Valve Area (continuity): 2.25 cm^2 Mean Velocity: 0.87 m/s Area (VTI):2.25 cm^2 Mean Gradient: 3 mmHg Peak Velocity: 1.28 m/s AV VTI: 26.2 cm Peak Gradient: 6.55 mmHg Tricuspid Valve Peak E-Wave: 0.49 m/s Peak Gradient: 0.99 mmHg TR Velocity: 2.55 m/s TR Gradient: 26.01 mmHg Pulmonic Valve Peak Velocity: 0.91 m/s Mean Velocity: 0.72 m/s Peak Gradient: 3.37 mmHg Mean Gradient: 2 mmHg LVOT Peak Velocity: 1.04 m/s Mean Velocity: 0.65 m/s Peak Gradient: 4 mmHg Mean Gradient: 2 mmHg LVOT Diameter: 1.9 cm LVOT VTI: 20.8 cm Stroke Volume: 59 ml Stroke Volume Index: 36.2 ml/m^2 Structures Left Ventricle Diastolic Dimension: 4.25 cm Systolic Dimension: 2.76 cm Septum Diastolic: 0.75 cm Septum Systolic: 1.15 cm PW Diastolic: 1.11 cm PW Systolic: 1.67 cm Diastolic Length: 16 cm Systolic Length: 11.4 cm CO: 3.24 l/min CI: 1.99 l/min*m^2 RWT: 0.52 FS: 35.06 % LV EDV: 39.2 ml LV Length: 7.1 cm LV EDV Index: 24 m^2 LVOT Diameter: 1.9 cm Global Longitudinal Strain:-20.4 Right Ventricle RVOT (PLAX) diameter:3.06 cm Tissue Doppler RV S': 9.46 TAPSE: 2.67 cm Left Atrium LA Systolic Pressure: 15.5 mmHg LA Area: 12.2 cm^2 Right Atrium RA Area: 11 cm^2 Great Vessels Aorta Ascending Aorta: 2.7 cm Aorta Root:2.1 cm Ascending Aorta Index:1.66 cm/m^2 Demographics Age 53 Gender Female Race Height 60.98 in. Weight 142 lbs. BMI (BSA) 26.84 kg/m^2 (1.63 m^2) Equipment Monitor Phototypesetting Rigoberto Weeks Interpreting Hyde Referring Physician Justin Physician [facility] Giovanna Pearson MD IMG ECHO ORDERABLES Lanny l Result * CT CHEST ABDOMEN AND PELVIS W CONTRAST (12/20/2023 7:43 AM CDT) Anatomical Region Laterality Modality Chest, Abdomen, Pelvis N/A Computed Tomography 12/23/2023 3:24 PM CDT Impressions 12/23/2023 3:26 PM CDT IMPRESSION: Interval decrease in size of the [...] involving T5, T7, and bilateral iliac bones. ??The necessity of further evaluation with MRI or bone scan can be determined clinically. ?? No definite evidence of metastatic disease in [...] without definite evidence of diverticulitis. Normal appendix. Narrative 12/23/2023 3:26 PM CDT EXAM DESCRIPTION: CT CHEST ABDOMEN AND PELVIS W CONTRAST REASON FOR STUDY: follow up RT breast CA w/ mets to lymph node. ?? TECHNIQUE: CT scan of the chest, abdomen, and pelvis performed with intravenous and ??without ??oral contrast using helical scanning technique with dynamic intravenous contrast injection. Reconstructed coronal and sagittal MPR images reviewed. All images stored on PACS. Automated exposure control was used as a dose optimization technique for this examination. CONTRAST TYPE/DOSE: 100mL of IOPAMIDOL 76 % IV SOLN ??injected via ?? Intravenous COMPARISON: 09/17/2023 FINDINGS: CHEST LUNGS: ?? There is no definite evidence of a pneumothorax. ??The central airways are grossly patent. ??There is scattered mild subsegmental atelectasis and scarring. ??There is no definite evidence of focal consolidation or pleural effusion. There is redemonstration of the scattered pulmonary nodules, many of which have decreased in size in comparison to the prior study. ??For example, the previously visualized pulmonary nodule in the anterior right middle lobe measures 0.4 cm, which previously measured 0.6 cm (axial image 70). ??The previously visualized subpleural pulmonary nodule in the posterior right lower lobe measures 0.3 cm, which previously measured 0.5 cm (axial image 84). ??There is a 0.3 cm pulmonary nodule in the medial right lower lobe, which previously measured 0.8 cm (axial image 90). ??There is a subtle subpleural 0.3 cm right lower lobe pulmonary nodule abutting the right hemidiaphragm, which previously measured 0.4 cm (axial image 97). ?? There is a 0.5 cm irregular pulmonary nodule in the anteromedial left upper lobe, which previously measured 0.7 cm (axial image 67). ?? There is a 0.7 cm left lower lobe pulmonary nodule abutting the left major fissure, which previously measured 0.9 cm (axial image 81). ?? MEDIASTINUM/MILO: ?? The heart size is stable. ??There is no definite evidence of a pericardial effusion. ??There is dilatation of main pulmonary artery measuring up to 3.7 cm, which is concerning for pulmonary arterial hypertension. There is interval improved mediastinal lymphadenopathy. ??For example, there is a prevascular lymph node measuring 0.6 cm, which previously measured 1.1 cm (axial image 40). ??There is a right paratracheal lymph node measuring 0.4 cm, which previously measured 0.7 cm (axial image 43). ??There is a right internal mammary lymph node measuring 0.3 cm, which previously measured 0.6 cm (axial image 50).. CHEST WALL: ?? Postsurgical changes of bilateral mastectomies are noted. ??There is redemonstration of the infiltrative mass involving the right chest wall extending from the skin surface at the level of the right nipple to the anterior right pleural surface measuring 7.3 x 1.5 cm, which previously measured 8.3 x 3.5 cm (axial image 72). ?? There is a associated nodularity extending along the skin surface superiorly measuring a maximum thickness of 0.4 cm, which previously measured up to 1.6 cm (axial image 64). There is interval improved bilateral axillary lymphadenopathy. ??For example, there is a right axillary lymph node measuring 0.8 cm, which previously measured 1.2 cm (axial image 44). ??There is left axillary lymph node measuring 1.2 cm, which previously measured 1.7 cm (axial image 41). HARDWARE/LINES/TUBES: ?? None. ABDOMEN/PELVIS LIVER: ?? The liver is grossly stable in size and contour. ??There is no definite evidence of focal hepatic lesion. ??There is focal fatty infiltration of the liver along the falciform ligament. ??The hepatic and portal veins are grossly patent. GALLBLADDER: ?? Grossly unremarkable. BILE DUCTS: ?? No intrahepatic or extrahepatic ductal dilatation. SPLEEN: ?? The spleen is grossly stable in size and unremarkable. PANCREAS: ?? The pancreas appears grossly stable without definite of pancreatic ductal dilatation, peripancreatic inflammatory changes, or peripancreatic fluid collection. ?? ADRENALS: ?? The bilateral adrenal glands are grossly stable and unremarkable. KIDNEYS/URINARY TRACT: ?? The bilateral kidneys enhance symmetrically. ??There is no definite evidence of focal renal lesion. There is no definite evidence of hydronephrosis or hydroureter. ? There is circumferential mucosal thickening of the urinary bladder. GI: ?? There is no definite evidence of a bowel obstruction. ??There is a small hiatal hernia. ??The appendix is visualized without definite evidence of pericecal or periappendiceal inflammatory changes to suggest appendicitis. ??There is mild mucosal thickening of the transverse colon, descending colon, and sigmoid colon. ??There are scattered colonic diverticula without definite evidence of diverticulitis. ??There is no definite evidence of free air or fluid in the abdomen and pelvis. ??There is no definite evidence of lymphadenopathy in the abdomen and pelvis. REPRODUCTIVE: ?? There is no definite CT evidence of a large ovarian or uterine mass. MUSCULOSKELETAL: ?? There are degenerative changes of the spine, bilateral sacroiliac joints, and bilateral hips. ??There is no definite CT evidence to correspond with the previously visualized areas of FDG avidity involving T5, T7, and bilateral iliac bones. OTHER: ?? No significant abnormality. THIS IS AN ELECTRONICALLY VERIFIED FINAL REPORT 12/23/2023 3:24 PM - Electronically signed by ??Nasima Lopez D.O. PS: PS D: ??12/23/2023 3:24 PM T: ??12/23/2023 3:24 PM Report ID: [id number] Reading Location: ??[id number] Procedure Note Nasima Lopez DO - 12/23/2023 EXAM DESCRIPTION: CT CHEST ABDOMEN AND PELVIS W CONTRAST REASON FOR STUDY: follow up RT breast CA w/ mets to lymph node. TECHNIQUE: CT scan of the chest, abdomen, and pelvis performed with intravenous and without oral contrast using helical scanning technique with dynamic intravenous contrast injection. Reconstructed coronal and sagittal MPR images reviewed. All images stored on PACS. Automated exposure control was used as a dose optimization technique for this examination. CONTRAST TYPE/DOSE: 100mL of IOPAMIDOL 76 % IV SOLN injected via Intravenous COMPARISON: 09/17/2023 FINDINGS: CHEST LUNGS: There is no definite evidence of a pneumothorax. The central airways are grossly patent. There is scattered mild subsegmental atelectasis and scarring. There is no definite evidence of focal consolidation or pleural effusion. There is redemonstration of the scattered pulmonary nodules, many of which have decreased in size in comparison to the prior study. For example, the previously visualized pulmonary nodule in the anterior right middle lobe measures 0.4 cm, which previously measured 0.6 cm (axial image 70). The previously visualized subpleural pulmonary nodule in the posterior right lower lobe measures 0.3 cm, which previously measured 0.5 cm (axial image 84). There is a 0.3 cm pulmonary nodule in the medial right lower lobe, which previously measured 0.8 cm (axial image 90). There is a subtle subpleural 0.3 cm right lower lobe pulmonary nodule abutting the right hemidiaphragm, which previously measured 0.4 cm (axial image 97). There is a 0.5 cm irregular pulmonary nodule in the anteromedial left upper lobe, which previously measured 0.7 cm (axial image 67). There is a 0.7 cm left lower lobe pulmonary nodule abutting the left major fissure, which previously measured 0.9 cm (axial image 81). MEDIASTINUM/MILO: The heart size is stable. There is no definite evidence of a pericardial effusion. There is dilatation of main pulmonary artery measuring up to 3.7 cm, which is concerning for pulmonary arterial hypertension. There is interval improved mediastinal lymphadenopathy. For example, there is a prevascular lymph node measuring 0.6 cm, which previously measured 1.1 cm (axial image 40). There is a right paratracheal lymph node measuring 0.4 cm, which previously measured 0.7 cm (axial image 43). There is a right internal mammary lymph node measuring 0.3 cm, which previously measured 0.6 cm (axial image 50).. CHEST WALL: Postsurgical changes of bilateral mastectomies are noted. There is redemonstration of the infiltrative mass involving the right chest wall extending from the skin surface at the level of the right nipple to the anterior right pleural surface measuring 7.3 x 1.5 cm, which previously measured 8.3 x 3.5 cm (axial image 72). There is a associated nodularity extending along the skin surface superiorly measuring a maximum thickness of 0.4 cm, which previously measured up to 1.6 cm (axial image 64). There is interval improved bilateral axillary lymphadenopathy. For example, there is a right axillary lymph node measuring 0.8 cm, which previously measured 1.2 cm (axial image 44). There is left axillary lymph node measuring 1.2 cm, which previously measured 1.7 cm (axial image 41). HARDWARE/LINES/TUBES: None. ABDOMEN/PELVIS LIVER: The liver is grossly stable in size and contour. There is no definite evidence of focal hepatic lesion. There is focal fatty infiltration of the liver along the falciform ligament. The hepatic and portal veins are grossly patent. GALLBLADDER: Grossly unremarkable. BILE DUCTS: No intrahepatic or extrahepatic ductal dilatation. SPLEEN: The spleen is grossly stable in size and unremarkable. PANCREAS: The pancreas appears grossly stable without definite of pancreatic ductal dilatation, peripancreatic inflammatory changes, or peripancreatic fluid collection. ADRENALS: The bilateral adrenal glands are grossly stable and unremarkable. KIDNEYS/URINARY TRACT: The bilateral kidneys enhance symmetrically. There is no definite evidence of focal renal lesion. There is no definite evidence of hydronephrosis or hydroureter. There is circumferential mucosal thickening of the urinary bladder. GI: There is no definite evidence of a bowel obstruction. There is a small hiatal hernia. The appendix is visualized without definite evidence of pericecal or periappendiceal inflammatory changes to suggest appendicitis. There is mild mucosal thickening of the transverse colon, descending colon, and sigmoid colon. There are scattered colonic diverticula without definite evidence of diverticulitis. There is no definite evidence of free air or fluid in the abdomen and pelvis. There is no definite evidence of lymphadenopathy in the abdomen and pelvis. REPRODUCTIVE: There is no definite CT evidence of a large ovarian or uterine mass. MUSCULOSKELETAL: There are degenerative changes of the spine, bilateral sacroiliac joints, and bilateral hips. There is no definite CT evidence to correspond with the previously visualized areas of FDG avidity involving T5, T7, and bilateral iliac bones. OTHER: No significant abnormality. THIS IS AN ELECTRONICALLY VERIFIED FINAL REPORT 12/23/2023 3:24 PM - Electronically signed by Nasima Lopez D.O. PS: PS Report ID: [id number] Reading Location: [id number] IMPRESSION: Interval decrease in size of the [...] without definite evidence of diverticulitis. Normal appendix. Jose R Pearson MD IMG CT ORDERABLES Final Result * PATHOLOGY CYTOLOGY RESIDENCY COORDINATOR (11/10/2020) Other Narrative Jodie Feldman - 11/10/2020 hims created in error [facility] PATHOLOGY/CYTOLOGY ORDERABLES Ed ited Result - Final * HUMAN PAPILLOMA VIRUS (HPV) (11/10/2020) Other National Payment Network LAB SEND OUTS Final Result from Last 3 Months or Most Recently Relevant to Health Maintenance Insurance [facility] [employer] INFUSION DRUG ASSISTANCE JUAN PABLO ROGER [id number] [place] [address] Care Teams Floor Worker [employer] [place] Relationship Specialty Start Date End Date Iveth Guzman MD [address] [place] [address] PCP - General Family Medicine 05/02/23 Luarence Luque MD [address] [phone] Consulting Physician General Surgery 02/01/15 Clemencia Bennett MD [address] [place] [address] Family Medicine 01/30/18 Sony Mcpherson MD [address] [phone] Consulting Physician General Surgery 09/08/23 Jose R Pearson MD [address] [place] [address] Consulting Physician Medical Oncology 10/02/23
--- OUTSIDE RECORDS SUMMARY | 2024-03-15 01:47 | XMS_ITS | Encounter Summary ---
Author Organization [facility] Address [address] [place] [address] Phone Care Team Providers Care Head Porter Baggage Name Role Phone Laurence Luque MD Unavailable Clemencia Bennett MD Unavailable Iveth Guzman MD Primary Care Provider [phone]- [phone] Sony Mcpherson MD Unavailable Jose R Pearson MD Unavailable Reason for Visit * Reason Comments Medication Refill Encounter Details Date Type Department Care Team (Late st Contact Info) Description 02/13/2024 Refill [facility] - Primary Care - Danny [address] [place] [address] Iveth Guzman MD [address] [place] [address] Medication Refill Social History Tobacco Use Types Packs/Day Years [...] encounter Miscellaneous Notes * Telephone Encounter - Keo Urbina PAC - 02/13/2024 2:16 PM CST Refill approved. DINE OPERATOR * Telephone Encounter - Jamie Figueroa RN - 02/13/2024 1:30 PM CST Medication failed the protocol, provider to review and approve the medication order if appropriate. Requested Prescriptions Pending Prescriptions Disp Refills atorvastatin (LIPITOR) 10 MG Tablet [Pharmacy Med Name: Atorvastatin Calcium 10 MG Oral Tablet] 90 Tablet 0 Sig: Take 1 tablet by mouth once daily Hmg CoA Reductase Inhibitors Protocol Failed - 02/13/2024 1:27 PM Failed - Lipid panel in past 12 months LDL Date Value Ref Range Status 04/16/2022 86 5 - 130 mg/dL Final HDL CHOLESTEROL Date Value Ref Range Status 04/16/2022 113.0 >40 mg/dL Final CHOLESTEROL Date Value Ref Range Status 04/16/2022 227 (H) <=200 mg/dL Final TRIGLYCERIDES Date Value Ref Range Status 04/16/2022 139 <150 mg/dL Final VLDL Date Value Ref Range Status 04/16/2022 28 5 - 55 mg/dL Final CHOL/HDL RATIO Date Value Ref Range Status 04/16/2022 2.0 0.0 - 4.4 Final NON-HDL CHOLESTEROL Date Value Ref Range Status 04/16/2022 114 <130 mg/dL Final Passed - No positive test in the past 12 months or most recent test was negative Passed - Visit with relevant provider in past 12 months or upcoming 90 days Recent Visits Date Type Provider Dept 05/02/23 Office Visit Iveth Guzman MD [facility] Showing recent visits within past 365 days and meeting all other requirements Future Appointments No visits were found meeting these conditions. Showing future appointments within next 90 days and meeting all other requirements Passed - No active on record Passed - CMP in past 12 months SODIUM Date Value Ref Range Status 01/27/2024 147 (H) 136 - 145 mmol/L Final POTASSIUM Date Value Ref Range Status 01/27/2024 3.6 3.5 - 5.1 mmol/L Final CHLORIDE Date Value Ref Range Status 01/27/2024 111 (H) 98 - 107 mmol/L Final CO2, VENOUS Date Value Ref Range Status 01/27/2024 27 22 - 30 mmol/L Final ANION GAP Date Value Ref Range Status 01/27/2024 12.6 <18.0 mmol/L Final GLUCOSE Date Value Ref Range Status 01/27/2024 116 (H) 70 - 99 mg/dL Final BUN Date Value Ref Range Status 01/27/2024 7 (L) 10 - 20 mg/dL Final CREATININE, BLOOD Date Value Ref Range Status 01/27/2024 0.74 0.60 - 1.00 mg/dL Final BUN/CREATININE RATIO Date Value Ref Range Status 01/27/2024 9 (L) 12 - 20 ratio Final TOTAL PROTEIN Date Value Ref Range Status 01/27/2024 6.1 (L) 6.3 - 8.2 g/dL Final ALBUMIN Date Value Ref Range Status 01/27/2024 3.8 3.5 - 5.0 g/dL Final A/G RATIO Date Value Ref Range Status 01/27/2024 1.7 1.0 - 2.2 Final CALCIUM Date Value Ref Range Status 01/27/2024 9.7 8.7 - 10.5 mg/dL Final T BILI Date Value Ref Range Status 01/27/2024 0.5 0.2 - 1.2 mg/dL Final SGOT (AST) Date Value Ref Range Status 01/27/2024 17 5 - 34 U/L Final SGPT (ALT) Date Value Ref Range Status 01/27/2024 12 0 - 55 U/L Final ALKALINE PHOSPHATASE Date Value Ref Range Status 01/27/2024 52 40 - 150 U/L Final GFR, EST. NONAFRICAN Date Value Ref Range Status 01/27/2024 >60 >=60 Final GFR, EST. Date Value Ref Range Status 01/27/2024 >60 >=60 Final GFR, ESTIMATED Date Value Ref Range Status 01/27/2024 >60 >=60 Final Comment: Creatinine Clearance is the preferred criteria for selecting drug dose adjustments in renally impaired patients. The GFR is provided as additional pertinent clinical information. GFR is reported in mL/min/1.73 sq m. Calculation based on the Chronic Kidney Disease Epidemiology Collaboration (CKD- EPI) equation refitwithout adjustment for race. IS THE PATIENT REQUIRED TO BE FASTING? Date Value Ref Range Status 01/27/2024 No Final DINE OPERATOR documented in this encounter Plan of Treatment Upcoming Encounters Date Type Department Care Team (Late st Contact Info) Description 03/23/2024 1:00 PM PYRIDINE OPERATOR Appointment [facility] Cardiology Services [address] [place] [address] Jose R Pearson MD [address] [place] [address] Discharge Disposition: Discharged to home or Selfcare 03/23/2024 2:30 PM PYRIDINE OPERATOR Appointment [facility] [address] [place] [address] Jose R Pearson MD [address] [place] [address] Discharge Disposition: Discharged to home or Selfcare 03/30/2024 10:00 AM PYRIDINE OPERATOR Office Visit [facility] Oncology Services [address] [place] [address] Jose R Pearson MD [address] [place] [address] Discharge Disposition: Discharged to home or Selfcare 03/30/2024 10:30 AM PYRIDINE OPERATOR Lab [facility] Oncology Services [address] [place] [address] Discharge Disposition: Discharged to home or Selfcare 03/31/2024 1:00 PM PYRIDINE OPERATOR Clinical Support [facility] Oncology Services [address] [place] [address] Jose R Pearson MD [address] [place] [address] Discharge Disposition: Discharged to home or Selfcare 04/28/2024 1:30 PM PYRIDINE OPERATOR Clinical Support [facility] Oncology Services [address] [place] [address] Discharge Disposition: Discharged to home or Selfcare documented as of this encounter Goals Goal Patient Goal Type Associated Problems Recent Progress Patient-Stated? Author Exercise 3x per week (30 min per time) Exercise No Chica Saldana MD documented as of this encounter Visit Diagnoses Diagnosis Hyperlipidemia, unspecified hyperlipidemia type documented in this encounter Additional Health Concerns Assessment Noted Time PHQ-9 Depression Total Score: 0 04/01/19 20 9:00 AM PYRIDINE OPERATOR documented as of this encounter Care Teams Head Porter Baggage Relationship Specialty Start Date End Date Iveth Guzman MD [address] [place] [address] PCP - General Family Medicine 05/02/23 Laurence Luque MD [address] [phone] Consulting Physician General Surgery 02/01/15 Clemencia Bennett MD [address] [place] [address] Family Medicine 01/30/18 Sony Mcpherson MD [address] [phone] Consulting Physician General Surgery 09/08/23 Jose R Pearson MD [address] [place] [address] Consulting Physician Medical Oncology 10/02/23 documented as of this encounter
--- OUTSIDE RECORDS SUMMARY | 2024-03-15 01:47 | XMS_ITS | Encounter Summary ---
Author Organization [facility] [employer] [facility] Care Team Providers Care Roping Tender Name Role Phone Laurence Luque MD Unavailable + [phone] Clemencia Bennett MD Unavailable [phone] Iveth Guzman MD Primary Care Provider + [phone] Sony Mcpherson MD Unavailable [phone] Jose R Pearson MD Unavailable [phone] Encounter Details Date Type Department Care Team (Latest Contact Info) Description 02/17/2024 Travel Social History Tobacco Use Types Packs/Day [...] st Contact Info) Description 03/23/2024 1:00 PM MECHANICAL APPRENTICE Appointment [facility] Cardiology Services [address] [place] [address] Jose R Pearson MD [address] [place] [address] Discharge Disposition: Discharged to home or Selfcare 03/23/2024 2:30 PM MECHANICAL APPRENTICE Appointment [facility] [address] [place] [address] Jose R Pearson MD [address] [place] [address] Discharge Disposition: Discharged to home or Selfcare 03/30/2024 10:00 AM MECHANICAL APPRENTICE Office Visit [facility] Oncology Services [address] [place] [address] Jose R Pearson MD [address] [place] [address] Discharge Disposition: Discharged to home or Selfcare 03/30/2024 10:30 AM MECHANICAL APPRENTICE Lab [facility] Oncology Services [address] [place] [phone] Discharge Disposition: Discharged to home or Selfcare 03/31/2024 1:00 PM MECHANICAL APPRENTICE Clinical Support [facility] Oncology Services [address] [place] [address] Jose R Pearson MD [address] [place] [address] Discharge Disposition: Discharged to home or Selfcare 04/28/2024 1:30 PM MECHANICAL APPRENTICE Clinical Support [facility] Oncology Services [address] [place] [address] Discharge Disposition: Discharged to home or Selfcare documented as of this encounter Goals Goal Patient Goal Type Associated Problems Recent Progress Patient-Stated? Author Exercise 3x per week (30 min per time) Exercise Chica Louis MD documented as of this encounter Visit Diagnoses Not on filedocumented in this encounter Additional Health Concerns Assessment Noted Time PHQ-9 Depression Total Score: 0 04/01/19 20 9:00 AM MECHANICAL APPRENTICE documented as of this encounter Care Teams Roping Tender Relationship Specialty Start Date End Date Iveth Guzman MD [address] [place] [address] PCP - General Family Medicine 05/02/23 Laurence Luque MD [address] [address] Consulting Physician General Surgery 02/01/15 Clemencia Bennett MD [address] [place] [address] Family Medicine 01/30/18 Sony Mcpherson MD [address] [address] Consulting Physician General Surgery 09/08/23 Jose R Pearson MD [address] [place] [address] Consulting Physician Medical Oncology 10/02/23 documented as of this encounter
--- OUTSIDE RECORDS SUMMARY | 2024-03-15 01:48 | XMS_ITS | Encounter Summary ---
Author Organization [facility] [employer] [facility] Care Team Providers Care Certified Green Building Engineer Name Role Phone Laurence Luque MD Unavailable + [phone] Clemencia Bennett MD Unavailable [phone] Iveth Guzman MD Primary Care Provider + [phone] Sony Mcpherson MD Unavailable [phone] Jose R Pearson MD Unavailable [phone] Encounter Details Date Type Department Care Team (Latest Contact Info) Description 11/04/2023 Travel Social History Tobacco Use Types Packs/Day [...] st Contact Info) Description 03/23/2024 1:00 PM EMPLOYEE DEVELOPMENT SPECIALIST [facility]ment [facility] [address] [place] [address] Jose R Pearson MD 0 [place] [address] Discharge Disposition: Discharged to home or Selfcare 03/23/2024 2:30 PM EMPLOYEE DEVELOPMENT SPECIALIST Appointment [facility] [address] [place] [address] Jose R Pearson MD [address] [place] [address] Discharge Disposition: Discharged to home or Selfcare 03/30/2024 10:00 AM EMPLOYEE DEVELOPMENT SPECIALIST Office Visit [facility] Oncology Services [address] [place] [address] Jose R Pearson MD [address] [place] [address] Discharge Disposition: Discharged to home or Selfcare 03/30/2024 10:30 AM EMPLOYEE DEVELOPMENT SPECIALIST Lab [facility] Oncology Services [address] [place] [address] Discharge Disposition: Discharged to home or Selfcare 03/31/2024 1:00 PM EMPLOYEE DEVELOPMENT SPECIALIST Clinical Support [facility] Oncology Services [address] [place] [address] Jose R Pearson MD [address] [place] [address] Discharge Disposition: Discharged to home or Selfcare 04/28/2024 1:30 PM EMPLOYEE DEVELOPMENT SPECIALIST Clinical Support [facility] Oncology Services [address] [place] [address] Discharge Disposition: Discharged to home or Selfcare documented as of this encounter Goals Goal Patient Goal Type Associated Problems Recent Progress Patient-Stated? Author Exercise 3x per week (30 min per time) Exercise Chica Louis MD documented as of this encounter Visit Diagnoses Not on filedocumented in this encounter Additional Health Concerns Assessment Noted Time PHQ-9 Depression Total Score: 0 04/01/19 20 9:00 AM EMPLOYEE DEVELOPMENT SPECIALIST documented as of this encounter Care Teams Certified Green Building Engineer Relationship Specialty Start Date End Date Iveth Guzman MD [address] [place] [address] PCP - General Family Medicine 05/02/23 Laurence Luque MD [address] [address] Consulting Physician General Surgery 02/01/15 Clemencia Bennett MD [address] [place] [address] Family Medicine 01/30/18 Sony Mcpherson MD #[address] [address] Consulting Physician General Surgery 09/08/23 Jose R Pearson MD [address] [place] [address] Consulting Physician Medical Oncology 10/02/23 documented as of this encounter
--- OUTSIDE RECORDS SUMMARY | 2024-03-15 01:48 | XMS_ITS | Encounter Summary ---
Author Organization [facility] Address [address] [place] [address] Phone Care Team Providers Care Domestic Freight Forwarder Name Role Phone Laurence Luque MD Unavailable Clemencia Bennett MD Unavailable [phone] Iveth Guzman MD Primary Care Provider [phone]- [phone] Sony Mcpherson MD Unavailable [phone] Jose R Pearson MD Unavailable Encounter Details Date Type Department Care Team (Latest Contact Info) Description 10/14/2023 1:30 PM CDT Clinical Support [facility] Oncology Services [address] [place] [address] Jose R Pearson MD [address] [place] [address] Breast cancer metastasized to axillary lymph node, right (HCC) (Primary Dx) Discharge Disposition: Discharged to home or Selfcare [...] - Inhaled Oxygen Concentration - - Weight 70.2 kg (154 lb 12.8 oz) 10/14/2023 3:46 PM CDT Height - - Body Mass Index 29.25 10/02/2023 10:54 AM CDT documented in this encounter Miscellaneous Notes * Interdisciplinary - Lalita Lee RN - 10/14/2023 1:30 PM CDT See lab appointment chart note. Alteplase instilled to port. Pt resting comfortably in chair. After30 min, port checked for blood return. No blood return noted. Alteplase re-instilled. After [id number] min, blood return from port given. Alteplase and blood waste drawn and then port flushed with 4 NS flushes and then able to get strong blood return. Blood waste obtained and labs drawn per order. Port flushed with NS and heparin and access removed. Site secured with bandaid. Patient left treatment bay safely. documented in this encounter Plan of Treatment Upcoming Encounters Date Type Department Care Team (Late st Contact Info) Description 03/23/2024 1:[address] HOGGER OPERATOR [facility] [address] [place] [address] Jose R Pearson MD [address] [place] [address] Discharge Disposition: Discharged to home or Selfcare 03/23/2024 2:[address] HOGGER OPERATOR [facility] [address] [place] [address] Jose R Pearson MD [address] [place] [address] Discharge Disposition: Discharged to home or Selfcare 03/30/2024 10:[address] HOGGER OPERATOR Office Visit [facility] Oncology Services [address] [place] [address] Jose R Pearson MD [address] [place] [address] Discharge Disposition: Discharged to home or Selfcare 03/30/2024 10:[address] HOGGER OPERATOR Lab [facility] Oncology Services [address] [place] [address] Discharge Disposition: Discharged to home or Selfcare 03/31/2024 1:[address] HOGGER OPERATOR Clinical Support [facility] Oncology Services [address] [place] [address] Jose R Pearson MD [address] [place] [address] Discharge Disposition: Discharged to home or Selfcare 04/28/2024 1:[address] HOGGER OPERATOR Clinical Support [facility] Oncology Services [address] [place] [address] Discharge Disposition: Discharged to home or Selfcare documented as of this encounter Goals Goal Patient Goal Type Associated Problems Recent Progress Patient-Stated? Author Exercise 3x per week (30 min per time) Exercise No Chica Saldana MD documented as of this encounter Visit Diagnoses Diagnosis Breast cancer metastasized to axillary lymph node, right (HCC)- Primary documented in this encounter Administered Medications Inactive Administered Medications - up to 3 most recent administrations Medication Order MAR Action Action Date Dose Rate Site Heparin Na (Pork) Lock Flsh PF SOLN 50 Units 50 Units, Intravenous, ONCE, 1 dose, On Fri10/14/23 at 1630Indications:Breast cancer metastasized to axillary lymph node, right (HCC) Given 10/14/2023 2:45 PM CDT 50 Units documented in this encounter Additional Health Concerns Assessment Noted Time PHQ-9 Depression Total Score: 0 04/01/19 20 9:[address] HOGGER OPERATOR documented as of this encounter Care Teams Domestic Freight Forwarder Relationship Specialty Start Date End Date Iveth Guzman MD [address] [place] [address] PCP - General Family Medicine 05/02/23 Laurence Luque MD [address] [address] Consulting Physician General Surgery 02/01/15 Clemencia Bennett MD [address] [place] [address] Family Medicine 01/30/18 Sony Mcpherson MD #[address] [phone] Consulting Physician General Surgery 09/08/23 Jose R Pearson MD [address] [place] [address] Consulting Physician Medical Oncology 10/02/23 documented as of this encounter
--- OUTSIDE RECORDS SUMMARY | 2024-03-15 01:48 | XMS_ITS | Encounter Summary ---
Author Organization [facility] [employer] [facility] Care Team Providers Care Die Cleaner Name Role Phone Laurence Luque MD Unavailable + [phone] Clemencia Bennett MD Unavailable [phone] Iveth Guzman MD Primary Care Provider + [phone] Sony Mcphesron MD Unavailable [phone] Jose R Pearson MD Unavailable [phone] Encounter Details Date Type Department Care Team (Latest Contact Info) Description 11/25/2023 Travel Social History Tobacco Use Types Packs/Day [...] st Contact Info) Description 03/23/2024 1:00 PM HYBRID TECHNOLOGIST [facility] [address] [place] [address] Jose R Pearson MD 0 [place] [address] Discharge Disposition: Discharged to home or Selfcare 03/23/2024 2:30 PM HYBRID TECHNOLOGIST Appointment [facility] [address] [place] [address] Jose R Pearson MD [address] [place] [address] Discharge Disposition: Discharged to home or Selfcare 03/30/2024 10:00 AM HYBRID TECHNOLOGIST Office Visit [facility] Oncology Services [address] [place] [address] Jose R Pearson MD [address] [place] [address] Discharge Disposition: Discharged to home or Selfcare 03/30/2024 10:30 AM HYBRID TECHNOLOGIST Lab [facility] Oncology Services [address] [place] [address] Discharge Disposition: Discharged to home or Selfcare 03/31/2024 1:00 PM HYBRID TECHNOLOGIST Clinical Support [facility] Oncology Services [address] [place] [address] Jose R Pearson MD [address] [place] [address] Discharge Disposition: Discharged to home or Selfcare 04/28/2024 1:30 PM HYBRID TECHNOLOGIST Clinical Support [facility] Oncology Services [address] [place] [address] Discharge Disposition: Discharged to home or Selfcare documented as of this encounter Goals Goal Patient Goal Type Associated Problems Recent Progress Patient-Stated? Author Exercise 3x per week (30 min per time) Exercise Chica Louis MD documented as of this encounter Visit Diagnoses Not on filedocumented in this encounter Additional Health Concerns Assessment Noted Time PHQ-9 Depression Total Score: 0 04/01/19 20 9:00 AM HYBRID TECHNOLOGIST documented as of this encounter Care Teams Die Cleaner Relationship Specialty Start Date End Date Iveth Guzman MD [address] [place] [address] PCP - General Family Medicine 05/02/23 Laurence Luque MD [address] [address] Consulting Physician General Surgery 02/01/15 Clemencia Bennett MD [address] [place] [address] Family Medicine 01/30/18 Sony Mcpherson MD #[address] [address] Consulting Physician General Surgery 09/08/23 Jose R Pearson MD [address] [place] [address] Consulting Physician Medical Oncology 10/02/23 documented as of this encounter
--- OUTSIDE RECORDS SUMMARY | 2024-03-15 01:48 | XMS_ITS | Encounter Summary ---
Author Organization [facility] [employer] [facility] Care Team Providers Care Prop And Effects Designer Name Role Phone Laurence Luque MD Unavailable + [phone] Clemencia Bennett MD Unavailable [phone] Iveth Guzman MD Primary Care Provider + [phone] Sony Mcpherson MD Unavailable [phone] Jose R Pearson MD Unavailable [phone] Encounter Details Date Type Department Care Team (Latest Contact Info) Description 11/26/2023 Travel Social History Tobacco Use Types Packs/Day [...] st Contact Info) Description 03/23/2024 1:00 PM MANAGER MARKETING [facility] [address] [place] [address] Jose R Pearson MD 0 [place] [address] Discharge Disposition: Discharged to home or Selfcare 03/23/2024 2:30 PM MANAGER MARKETING Appointment [facility] CT [address] [place] [address] Jose R Pearson MD [address] [place] [address] Discharge Disposition: Discharged to home or Selfcare 03/30/2024 10:00 AM MANAGER MARKETING Office Visit [facility] Oncology Services [address] [place] [address] Jose R Pearson MD [address] [place] [address] Discharge Disposition: Discharged to home or Selfcare 03/30/2024 10:30 AM MANAGER MARKETING Lab [facility] Oncology Services [address] [place] [address] Discharge Disposition: Discharged to home or Selfcare 03/31/2024 1:00 PM MANAGER MARKETING Clinical Support [facility] Oncology Services [address] [place] [address] Jose R Pearson MD [address] [place] [address] Discharge Disposition: Discharged to home or Selfcare 04/28/2024 1:30 PM MANAGER MARKETING Clinical Support [facility] Oncology Services [address] [place] [phone] Discharge Disposition: Discharged to home or Selfcare documented as of this encounter Goals Goal Patient Goal Type Associated Problems Recent Progress Patient-Stated? Author Exercise 3x per week (30 min per time) Exercise Chica Louis MD documented as of this encounter Visit Diagnoses Not on filedocumented in this encounter Additional Health Concerns Assessment Noted Time PHQ-9 Depression Total Score: 0 04/01/19 20 9:00 AM MANAGER MARKETING documented as of this encounter Care Teams Prop And Effects Designer Relationship Specialty Start Date End Date Iveth Guzman MD [address] [place] [address] PCP - General Family Medicine 05/02/23 Laurence Luque MD [address] [address] Consulting Physician General Surgery 02/01/15 Clemencia Bennett MD [address] [place] [address] Family Medicine 01/30/18 Sony Mcpherson MD #[address] [address] Consulting Physician General Surgery 09/08/23 Jose R Pearson MD [address] [place] [address] Consulting Physician Medical Oncology 10/02/23 documented as of this encounter
--- OUTSIDE RECORDS SUMMARY | 2024-03-15 01:48 | XMS_ITS | Encounter Summary ---
Author Organization [facility] Address [address] [place] [address] Phone Care Team Providers Care Crane Engineer Name Role Phone Laurence Luque MD Unavailable Clemencia Bennett MD Unavailable Iveth Guzman MD Primary Care Provider [phone] Sony Mcpherson MD Unavailable Jose R Pearson MD Unavailable Reason for Visit * Reason Comments Follow-up Encounter Details Date Type Department Care Team (Late st Contact Info) Description 11/05/2023 11:20 AM CDT Office Visit [facility] Oncology Services [address] [place] [phone] Jose R Pearson MD [address] [place] [address] Breast cancer metastasized to axillary lymph node, right (HCC) (Primary Dx); Recurrent malignant neoplasm of right breast (HCC); 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); History of bilateral mastectomy Discharge Disposition: Discharged [...] Sign Reading Time Taken Comments Blood Pressure 136/81 11/05/2023 11:44 AM CDT Pulse 55 11/05/2023 11:44 AM CDT Temperature 35.6 ??C (96.1 ??F) 11/05/2023 11:44 AM C DT Respiratory Rate 18 11/05/2023 11:44 AM CDT Oxygen Saturation 99% 11/05/2023 11:44 AM CDT Inhaled Oxygen Concentration - - Weight 69.9 kg (154 lb) 11/05/2023 11:44 AM CDT Height 154.9 cm (5' 1 ) 11/05/2023 11:44 AM CDT Body Mass Index 29.1 11/05/2023 11:44 AM CDT documented in this encounter Progress Notes * Jose R Pearson MD - 11/05/2023 11:20 AM CDT Outpatient Hem/Onc Progress Note INTERVAL HISTORY: Angie Reed is a 53 y.o. female seen today for follow up of metastatic breast cancer. Receiving chemotherapy every 3 weeks. Tolerating it well. Fatigue for few days after. Diarrhea started 5 days later- had 2-3 BM loose BM and then took imodium - 2 tabs which helped. Back to normal now. Nausea in am daily. Takes zofran which helps. Bone pains after chemo, tolerable. Pain in the right chest wall and arm has improved. Drainage fromright chest wound ceased. Anxiety stable with the use of lorazepam nightly, able to sleep well. No new neurological symptoms. Feels breast lesion has improved without any more drainage BRIEF ONCOLOGY SUMMARY: Recurrent metastatic invasive ductal carcinoma with metastatic [...] axilla biopsy: pathology confirmed invasive ductal carcinoma, ER/WV positive, Ki67 strong at 80%, with HER2 2+ on IHC, positive on FISH -- PET showed metastatic disease to LN (supraclav, axillary, mediastinal) and osseous mets -- started chemo TCHP cycle 1 on 09/23/23 2. Malignant breast neoplasm stage I: Pathologic stage T1cN0 -- s/p double mastectomy and right SLNB on 12/01/[address] Luque ---3 distinct foci of invasive ductal carcinoma measuring 11mm, 7mm, and 5mm. ER/WV strongly positive in all tumors that were biopsied. Negative HER2 status. OncotypeDX showed low risk RS (score of 16). BRCA1/2 negative -- Did not need adjuvant RT -- Started Lezama in 12/2013. Took lezama till 2017 then discontinued on her own PAST MEDICAL, SURGICAL, SOCIAL AND FAMILY HISTORY: Reviewed and update in chart CURRENT MEDS: Current Outpatient Medications: atorvastatin (LIPITOR) 10 MG Tablet Cholecalciferol (Vitamin D) 2000 UNIT Tablet dexamethasone (DECADRON) 4 MG Tablet letrozole (FEMARA) 2.5 MG Tablet LORazepam (ATIVAN) 0.5 MG Tablet metoprolol tartrate (LOPRESSOR) 25 MG Tablet Multiple Vitamin (MULTI-VITAMIN PO) ondansetron (ZOFRAN) 8 MG Tablet prochlorperazine (COMPAZINE) 10 MG Tablet triamcinolone (KENALOG) 0.1 % Cream No current facility-administered medications for this visit. Facility-Administered Medications Ordered in Other Visits: Heparin Na (Pork) Lock Flsh PF SOLN 50 Units Allergies as of 11/05/2023 (No Known Allergies) REVIEW OF SYSTEMS: Review of Systems Constitutional: Positive for malaise/fatigue. HENT: Negative. Eyes: Negative. Respiratory: Negative. Cardiovascular: Positive for chest pain. Gastrointestinal: Positive for diarrhea and nausea. Genitourinary: Negative. Musculoskeletal: Positive for joint pain. Skin: Negative. Neurological: Negative. Endo/Heme/Allergies: Negative. Psychiatric/Behavioral: Negative. PHYSICAL EXAM: Physical Exam Chest: Chest wall: Deformity present. Breasts: Left: Skin change present. Comments: Right chest wall wound with scab, no active drainage Lymphadenopathy: Upper Body: Right upper body: Axillary adenopathy present. PAIN ASSESSMENT: denies DATA: Lab Results Component Value Date WBC 5.56 02/17/2024 RBC 3.74 (L) 02/17/2024 HEMOGLOBIN 11.9 (L) 02/17/2024 MCV 97.9 (H) 02/17/2024 MCH 31.8 02/17/2024 MCHC 32.5 02/17/2024 PLATELETCNT 192 02/17/2024 RDW 13.1 02/17/2024 LYMPHOCYTES 44.4 (H) 02/17/2024 RELEOS 9.4 (H) 02/17/2024 RELBAS 0.7 02/17/2024 ANC 2.24 02/17/2024 MONOCYTES 0.29 02/17/2024 EOSINOPHILS 0.52 (H) 02/17/2024 BASOPHILS 0.04 02/17/2024 Lab Results Component Value Date SODIUM 144 02/17/2024 POTASSIUM 3.7 02/17/2024 CHLORIDE 112 (H) 02/17/2024 ANIONGAP 9.7 02/17/2024 GLUCOSE 96 02/17/2024 BUN 8 (L) 02/17/2024 CREATININE 0.68 02/17/2024 TOTALPROTEIN 6.3 02/17/2024 ALBUMIN 3.9 02/17/2024 CALCIUM 9.1 02/17/2024 SGPTALT 35 02/17/2024 ALKALINEPHO 76 02/17/2024 DIAGNOSTIC IMAGING STUDIES: PET scan 09/17/23 IMPRESSION: Large hypermetabolic infiltrative [...] 65% Assessment: Metastatic breast cancer, ER and WV positive, HER2 demetra positive by FISH Bone mets Diarrhea due to chemo Bone pains after chemo Plan: 1. Reviewed above clinical data including recent symptoms,and labs. Clinical improvement in chest wall and tolerating treatment well. Reassurance given. Continue current regimen of TCHP for 4-6 cycles as tolerated. Discussed diagnosis, treatment options and prognostic implication of disease. 2. Obtain CT chest a P after 4 cycles 3. ECHO every 3 months 4. Zofran and compazine prn nausea. Imodium PRN diarrhea 5. Continue active physical routine. 6. Continue Xgeva 120 mg SQ every 6 weeks for bone mets. She is edentulous. Start Calcium 600 mg POdaily Labs every 3 weeks, FU In 4-5 weeks The patient was given an opportunity to ask questions, and all questions answered to patient's satisfaction. Patient verbalizes understanding of the plan as outlined above. Jose R Pearson MD DING INSPECTOR documented in this encounter Miscellaneous Notes * Interdisciplinary - Alanna Rincon CMA - 11/05/2023 11:20 AM CDT Pt will be seen in infusion due to pt getting chemo today also. * Interdisciplinary - Alanna Rincon CMA - 11/05/2023 11:20 AM CDT Pt given AVS with nurse given appt time to return documented in this encounter Plan of Treatment Upcoming Encounters Date Type Department Care Team (Late st Contact Info) Description 03/23/2024 1:00 PM BUILDING INSPECTOR Appointment [facility] Cardiology Services [address] [place] [address] Jose R Pearson MD [address] [place] [address] Discharge Disposition: Discharged to home or Selfcare 03/23/2024 2:30 PM BUILDING INSPECTOR Appointment [facility] [address] [place] [address] Jose R Pearson MD [address] [place] [address] Discharge Disposition: Discharged to home or Selfcare 03/30/2024 10:00 AM BUILDING INSPECTOR Office Visit [facility] Oncology Services [address] [place] [address] Jose R Pearson MD [address] [place] [address] Discharge Disposition: Discharged to home or Selfcare 03/30/2024 10:30 AM BUILDING INSPECTOR Lab [facility] Oncology Services [address] [place] [phone] Discharge Disposition: Discharged to home or Selfcare 03/31/2024 1:00 PM BUILDING INSPECTOR Clinical Support [facility] Oncology Services [address] [place] [phone] Jose R Pearson MD [address] [place] [address] Discharge Disposition: Discharged to home or Selfcare 04/28/2024 1:30 PM BUILDING INSPECTOR Clinical Support [facility] Oncology Services [address] [place] [phone] Discharge Disposition: Discharged to home or Selfcare documented as of this encounter Goals Goal Patient Goal Type Associated Problems Recent Progress Patient-Stated? 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) History of bilateral mastectomy Acquired absence of breast and nipple documented in this encounter Additional Health Concerns Assessment Noted Time PHQ-9 Depression Total Score: 0 04/01/19 20 9:00 AM BUILDING INSPECTOR documented as of this encounter Care Teams Crane Engineer Relationship Specialty Start Date End Date Iveth Guzman MD [address] [place] [address] PCP - General Family Medicine 05/02/23 Laurence Luque MD [address] [phone] Consulting Physician General Surgery 02/01/15 Clemencia Bennett MD [address] [place] [address] Family Medicine 01/30/18 Sony Mcpherson MD [address] [phone] Consulting Physician General Surgery 09/08/23 Jose R Pearson MD [address] [place] [address] Consulting Physician Medical Oncology 10/02/23 documented as of this encounter
--- OUTSIDE RECORDS SUMMARY | 2024-03-15 01:48 | XMS_ITS | Encounter Summary ---
Author Organization [facility] Address [address] [place] [address] Phone Care Team Providers Care Alumina Refinery Operator Name Role Phone Laurence Luque MD Unavailable Clemencia Bennett MD Unavailable Iveth Guzman MD Primary Care Provider [phone] Sony Mcpherson MD Unavailable Jose R Pearson MD Unavailable Encounter Details Date Type Department Care Team (Latest Contact Info) Description 01/06/2024 1:20 PM CDT Clinical Support [facility] Oncology Services [address] [place] [phone] Jose R Pearson MD [address] [place] [address] Breast cancer metastasized to axillary lymph node, [...] - Inhaled Oxygen Concentration - - Weight 62.1 kg (137 lb) 01/06/2024 12:59 PM CDT Height 154.9 cm (5' 1 ) 01/06/2024 12:59 PM CDT Body Mass Index 25.89 01/06/2024 12:59 PM CDT documented in this encounter Progress Notes * Mishel Strickland, RN - 01/06/2024 1:20 PM CDT Patient received to lab draw room. Blood drawn peripheral at patient request as she states port does not given blood. X1 attempt per left antecubital. Gauze/coban applied. Patient discharged without concern aware of appointment time for tomorrow. documented in this encounter Plan of Treatment Upcoming Encounters Date Type Department Care Team (Late st Contact Info) Description 03/23/2024 1:00 PM ANIMAL RIDES MANAGER Appointment [facility] Cardiology Services [address] [place] [address] Jose R Pearson MD [address] [place] [address] Discharge Disposition: Discharged to home or Selfcare 03/23/2024 2:30 PM ANIMAL RIDES MANAGER Appointment [facility] [address] [facility] [place] [address] Jose R Pearson MD [address] [place] [address] Discharge Disposition: Discharged to home or Selfcare 03/30/2024 10:00 AM ANIMAL RIDES MANAGER Office Visit [facility] Oncology Services [address] [place] [address] Jose R Pearson MD [address] [place] [address] Discharge Disposition: Discharged to home or Selfcare 03/30/2024 10:30 AM ANIMAL RIDES MANAGER Lab [facility] Oncology Services [address] [place] [phone] Discharge Disposition: Discharged to home or Selfcare 03/31/2024 1:00 PM ANIMAL RIDES MANAGER Clinical Support [facility] Oncology Services [address] [place] [phone] Jose R Pearson MD [address] [place] [address] Discharge Disposition: Discharged to home or Selfcare 04/28/2024 1:30 PM ANIMAL RIDES MANAGER Clinical Support [facility] Oncology Services [address] [place] [phone] Discharge Disposition: Discharged to home or Selfcare documented as of this encounter Goals Goal Patient Goal Type Associated Problems Recent Progress Patient-Stated? Author Exercise 3x per week (30 min per time) Exercise No Chica Saldana MD documented as of this encounter Procedures Procedure Name Priority Date/Time Associated Diagnosis Comments CBC WITH AUTO DIFFERENTIAL STAT 01/06/2024 12:58 [...] Results * (ABNORMAL) CBC WITH AUTO DIFFERENTIAL (01/06/2024 12:58 PM CDT) WBC 5.94 4.00 - 12.00 10(3)/mcL 01/06/2024 1:23 PM CDT [facility] RBC 3.35(L) 3.80 - 5.30 10(6)/mcL 01/06/2024 1:23 PM CDT [facility] HEMOGLOBIN (HGB) 10.8(L) 12.0 - 15.8 g/dL 01/06/2024 1:23 PM CDT [facility] HEMATOCRIT (HCT) 33.3(L) 36.0 - 47.0 % 01/06/2024 1:23 PM CDT [facility] MCV 99.4(H) 82.0 - 96.0 fL 01/06/2024 1:23 PM CDT [facility] MCH 32.2 26.0 - 34.0 pg 01/06/2024 1:23 PM CDT [facility] MCHC 32.4 31.0 - 36.0 g/dL 01/06/2024 1:23 PM CDT [facility] PLATELET COUNT 211 140 - 440 10(3)/mcL 01/06/2024 1:23 PM CDT [facility] RDW 14.7 11.8 - 15.5 % 01/06/2024 1:23 PM CDT [facility] MPV 9.9 9.7 - 12.4 fL 01/06/2024 1:23 PM CDT [facility] NEUTROPHILS 54.0 47.0 - 73.0 % 01/06/2024 1:23 PM CDT [facility] LYMPHOCYTES 29.0 18.0 - 42.0 % 01/06/2024 1:23 PM CDT [facility] MONOCYTES 6.9 4.0 - 12.0 % 01/06/2024 1:23 PM CDT [facility] EOSINOPHILS 9.3(H) 0.0 - 5.0 % 01/06/2024 1:23 PM CDT [facility] BASOPHILS 0.8 0.0 - 1.0 % 01/06/2024 1:23 PM CDT [facility] ABSOLUTE NEUTROPHILS 3.21 1.60 - 7.70 10(3)/mcL 01/06/2024 1:23 PM CDT [facility] ABSOLUTE LYMPHOCYTES 1.72 1.30 - 3.20 10(3)/mcL 01/06/2024 1:23 PM CDT [facility] ABSOLUTE MONOCYTES 0.41 0.20 - 1.00 10(3)/[facility] 01/06/2024 1:23 PM CDT [facility] ABSOLUTE EOSINOPHIL 0.55(H) 0.00 - 0.40 10(3)/mcL 01/06/2024 1:23 PM CDT [facility] ABSOLUTE BASOPHILS 0.05 0.00 - 0.10 10(3)/[facility] 01/06/2024 1:23 PM CDT [facility] NRBC PER 100 WBC 0 01/06/20 24 1:23 PM CDT [facility] Blood Venipuncture / Unknown 01/06/2024 12:58 PM CDT 01/06/2024 12:58 PM CDT us Jose R Pearson MD HEMATOLOGY ORDERABLES Fi nal Result [facility] [address] [place] [address] * (ABNORMAL) CMP (COMPREHENSIVE METABOLIC PANEL) (01/06/2024 12:58 PM CDT) Pathologist [facility] SODIUM 140 136 - 145 mmol/L 01/06/2024 1:39 PM CDT [facility] POTASSIUM 3.5 3.5 - 5.1 mmol/L 01/06/2024 1:39 PM CDT [facility] CHLORIDE 105 98 - 107 mmol/L 01/06/2024 1:39 PM CDT [facility] CO2, VENOUS 27 22 - 30 mmol/L 01/06/2024 1:39 PM CDT [facility] ANION GAP 11.5 <18.0 mmol/L 01/06/2024 1:39 PM CDT [facility] GLUCOSE 123(H) 70 - 99 mg/dL 01/06/2024 1:39 PM CDT [facility] BUN 5(L) 10 - 20 mg/dL 01/06/2024 1:39 PM T [facility] CREATININE, BLOOD 0.69 0.60 - 1.00 mg/dL 01/06/2024 1:39 PM T [facility] BUN/CREATININE RATIO 7(L) 12 - 20 ratio 01/06/2024 1:39 PM CDT [facility] TOTAL PROTEIN 6.1(L) 6.3 - 8.2 g/dL 01/06/2024 1:39 PM T [facility] ALBUMIN 3.8 3.5 - 5.0 g/dL 01/06/2024 1:39 PM T [facility] A/G RATIO 1.7 1.0 - 2.2 01/06/2024 1:39 PM T [facility] CALCIUM 9.3 8.7 - 10.5 mg/dL 01/06/2024 1:39 PM T [facility] T BILI 0.5 0.2 - 1.2 mg/dL 01/06/2024 1:39 PM CDT [facility] SGOT (AST) 16 5 - 34 U/L 01/06/2024 1:39 PM T [facility] SGPT (ALT) 11 0 - 55 U/L 01/06/2024 1:39 PM CDT [facility] ALKALINE PHOSPHATASE 50 40 - 150 U/L 01/06/2024 1:39 PM CDT [facility] IS THE PATIENT REQUIRED TO BE FASTING? No 01/06/2024 1:39 PM CDT [facility] GFR, ESTIMATED >60 >=60 01/06/2024 1:39 PM CDT [facility] Comment: Creatinine Clearance is the preferred criteria for selecting drug dose adjustments in renally impaired patients. ??The GFR is provided as additional pertinent clinical information. GFR is reported in mL/min/1.73 sq m. Calculation based on the Chronic Kidney Disease Epidemiology Collaboration (CKD- EPI) equation refit without adjustment for race. GFR, EST. >60 >=60 024 1:39 PM CDT [facility] GFR, EST. 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) documented in this encounter Additional Health Concerns Assessment Noted Time PHQ-9 Depression Total Score: 0 04/01/19 20 9:00 AM ANIMAL RIDES MANAGER documented as of this encounter Care Teams Alumina Refinery Operator Relationship Specialty Start Date End Date Iveth Guzman MD [address] [place] [address] PCP - General Family Medicine 05/02/23 Laurence Luque MD #[address] [phone] Consulting Physician General Surgery 02/01/15 Clemencia Bennett MD [address] [place] [address] Family Medicine 01/30/18 Sony Mcpherson MD #[address] [phone] Consulting Physician General Surgery 09/08/23 Jose R Pearson MD [address] [place] [address] Consulting Physician Medical Oncology 10/02/23 documented as of this encounter
--- OUTSIDE RECORDS SUMMARY | 2024-03-15 01:48 | XMS_ITS | Encounter Summary ---
Author Organization [facility] Address [address] [place] 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) Jose R Pearson MD [address] [place] [address] Phone: tel: fax: [facility] Oncology Services [address] [place] [address] Phone: tel: fax: Referral ID Status Reason Start Date Expiration Date V isits Requested Visits Authorized [id number] Authorized 10/15/2023 1 8 Encounter Details Date Type Department Care Team (Latest Contact Info) Description 11/27/2023 2:00 PM CDT Clinical Support [facility] Oncology Services [address] [place] [address] Jose R Pearson MD [address] [place] [address] Breast cancer metastasized to axillary lymph node, [...] Sign Reading Time Taken Comments Blood Pressure 166/89 11/27/2023 1:45 PM CDT Pulse 65 11/27/2023 1:45 PM CDT Temperature 36.6 ??C (97.8 ??F) 11/27/2023 1:45 PM CD T Respiratory Rate 16 11/27/2023 1:45 PM CDT Oxygen Saturation 98% 11/27/2023 1:45 PM CDT Inhaled Oxygen Concentration - - Weight - - Height - - Body Mass Index - - documented in this encounter Miscellaneous Notes * Interdisciplinary - Sister Sisi Barajas RN - 11/27/2023 2:00 PM CDT Patient arrived and VS obtained. Medication given as ordered. Patient tolerated well. Appointment scheduled for next xgeva dose. Print out of appointments given to patient. Patient left treatment area in stable condition. documented in this encounter Plan of Treatment Upcoming Encounters Date Type Department Care Team (Late st Contact Info) Description 03/23/2024 1:00 PM BOOKKEEPING TEACHER Appointment [facility] Cardiology Services [address] [place] [address] Jose R Pearson MD [address] [place] [address] Discharge Disposition: Discharged to home or Selfcare 03/23/2024 2:30 PM BOOKKEEPING TEACHER Appointment [facility] CT 1 [facility] [place] [address] Jose R Pearson MD [address] [place] [address] Discharge Disposition: Discharged to home or Selfcare 03/30/2024 10:00 AM BOOKKEEPING TEACHER Office Visit [facility] Oncology Services [address] [place] [address] Jose R Pearson MD [address] [place] [address] Discharge Disposition: Discharged to home or Selfcare 03/30/2024 10:30 AM BOOKKEEPING TEACHER Lab [facility] Oncology Services [address] [place] [address] Discharge Disposition: Discharged to home or Selfcare 03/31/2024 1:00 PM BOOKKEEPING TEACHER Clinical Support [facility] Oncology Services [address] [place] [address] Jose R Pearson MD [address] [place] [address] Discharge Disposition: Discharged to home or Selfcare 04/28/2024 1:30 PM BOOKKEEPING TEACHER Clinical Support [facility] Oncology Services [address] [place] [address] Discharge Disposition: Discharged to home or Selfcare [...] MAR Action Action Date Dose Rate Site Pegfilgrastim-jmdb (FULPHILA) SOSY 6 mg 6 mg, Subcutaneous, ONCE, 1 dose, On Lizzie 11/27/23 at 1130Indications:Breast cancer metastasized to axillary lymph node, right (HCC),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) Given 11/27/2023 1:49 PM CDT 6 mg Left Lateral Upper Arm documented in this encounter Additional Health Concerns Assessment Noted Time PHQ-9 Depression Total Score: 0 04/01/19 20 9:00 AM BOOKKEEPING TEACHER documented as of this encounter Care Teams Venetian Blind Cleaner Relationship Specialty Start Date End Date Iveth Guzman MD [address] [place] [address] PCP - General Family Medicine 05/02/23 Laurence Luque MD #[address] [phone] Consulting Physician General Surgery 02/01/15 Clemencia Bennett MD [address] [place] [address] Family Medicine 01/30/18 Sony Mcpherson MD #[address] [phone] Consulting Physician General Surgery 09/08/23 Jose R Pearson MD [address] [place] [address] Consulting Physician Medical Oncology 10/02/23 documented as of this encounter
--- OUTSIDE RECORDS SUMMARY | 2024-03-15 01:48 | XMS_ITS | Encounter Summary ---
Author Organization [facility] [employer] [place] [facility] Care Team Providers Care Parachute Packer Name Role Phone Laurence Luque MD Unavailable + [phone] Clemencia Bennett MD Unavailable [phone] Iveth Guzman MD Primary Care Provider + [phone] Sony Mcpherson MD Unavailable [phone] Jose R Pearson MD Unavailable [phone] Encounter Details Date Type Department Care Team (Latest Contact Info) Description 12/17/2023 Travel Social History Tobacco Use Types Packs/Day [...] st Contact Info) Description 03/23/2024 1:00 PM WELDER ASSISTANT [facility]ointment [facility] [address] [place] [address] Jose R Pearson MD [address] [place] [address] Discharge Disposition: Discharged to home or Selfcare 03/23/2024 2:30 PM WELDER ASSISTANT Appointment [facility] [address] [place] [address] Jose R Pearson MD [address] [place] [address] Discharge Disposition: Discharged to home or Selfcare 03/30/2024 10:00 AM WELDER ASSISTANT Office Visit [facility] [address] [place] [address] Jose R Pearson MD [address] [place] [address] Discharge Disposition: Discharged to home or Selfcare 03/30/2024 10:30 AM WELDER ASSISTANT Lab [facility] [address] [place] [phone] Discharge Disposition: Discharged to home or Selfcare 03/31/2024 1:00 PM WELDER ASSISTANT Clinical Support [facility] [address] [place] [address] Jose R Pearson MD [address] [place] [address] Discharge Disposition: Discharged to home or Selfcare 04/28/2024 1:30 PM WELDER ASSISTANT Clinical Support [facility] [address] [place] [phone] Discharge Disposition: Discharged to home or Selfcare documented as of this encounter Goals Goal Patient Goal Type Associated Problems Recent Progress Patient-Stated? Author Exercise 3x per week (30 min per time) Exercise Chica Louis MD documented as of this encounter Visit Diagnoses Not on filedocumented in this encounter Additional Health Concerns Assessment Noted Time PHQ-9 Depression Total Score: 0 04/01/19 20 9:00 AM WELDER ASSISTANT documented as of this encounter Care Teams Parachute Packer Relationship Specialty Start Date End Date Iveth Guzman MD [address] [place] [address] PCP - General Family Medicine 05/02/23 Laurence Luque MD [address] [address] Consulting Physician General Surgery 02/01/15 Clemencia Bennett MD [address] [place] [address] Family Medicine 01/30/18 Sony Mcpherson MD [address] [address] Consulting Physician General Surgery 09/08/23 Jose R Pearson MD [address] [place] [address] Consulting Physician Medical Oncology 10/02/23 documented as of this encounter
--- OUTSIDE RECORDS SUMMARY | 2024-03-15 01:48 | XMS_ITS | Encounter Summary ---
Author Organization [facility] [employer] [facility] Care Team Providers Care Mexican Food Machine Tender Name Role Phone Laurence Luque MD Unavailable + [phone] Clemencia Bennett MD Unavailable [phone] Iveth Guzman MD Primary Care Provider + [phone] Sony Mcpherson MD Unavailable [phone] Jose R Pearson MD Unavailable [phone] Encounter Details Date Type Department Care Team (Latest Contact Info) Description 11/12/2023 Travel Social History Tobacco Use Types Packs/Day [...] st Contact Info) Description 03/23/2024 1:00 PM FIELD SECRETARY [facility] [address] [place] [address] Jose R Pearson MD [address] [place] [address] Discharge Disposition: Discharged to home or Selfcare 03/23/2024 2:30 PM FIELD SECRETARY Appointment [facility] [address] [place] [address] Jose R Pearson MD [address] [place] [address] Discharge Disposition: Discharged to home or Selfcare 03/30/2024 10:00 AM FIELD SECRETARY Office Visit [facility] Oncology Services [address] [place] [address] Jose R Pearson MD [address] [place] [address] Discharge Disposition: Discharged to home or Selfcare 03/30/2024 10:30 AM FIELD SECRETARY Lab [facility]cology Services [address] [place] [phone] Discharge Disposition: Discharged to home or Selfcare 03/31/2024 1:00 PM FIELD SECRETARY Clinical Support [facility]cology Services [address] [place] [address] Jose R Pearson MD [address] [place] [address] Discharge Disposition: Discharged to home or Selfcare 04/28/2024 1:30 PM FIELD SECRETARY Clinical Support [facility] Oncology Services [address] [place] [phone] Discharge Disposition: Discharged to home or Selfcare documented as of this encounter Goals Goal Patient Goal Type Associated Problems Recent Progress Patient-Stated? Author Exercise 3x per week (30 min per time) Exercise Chica Louis MD documented as of this encounter Visit Diagnoses Not on filedocumented in this encounter Additional Health Concerns Assessment Noted Time PHQ-9 Depression Total Score: 0 04/01/19 20 9:00 AM FIELD SECRETARY documented as of this encounter Care Teams Mexican Food Machine Tender Relationship Specialty Start Date End Date Iveth Guzman MD [address] [place] [address] PCP - General Family Medicine 05/02/23 Laurence Luque MD [address] [address] Consulting Physician General Surgery 02/01/15 Clemencia Bennett MD [address] [place] [address] Family Medicine 01/30/18 Sony Mcpherson MD [address] [address] Consulting Physician General Surgery 09/08/23 Jose R Pearson MD [address] [place] [address] Consulting Physician Medical Oncology 10/02/23 documented as of this encounter
--- OUTSIDE RECORDS SUMMARY | 2024-03-15 01:48 | XMS_ITS | Encounter Summary ---
Author Organization [facility] Address [address] 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) Jose R Pearson MD [address] [place] [address] Phone: tel: fax: [facility] Oncology Services [address] [place] [address] Phone: tel: fax: Referral ID Status Reason Start Date Expiration Date V isits Requested Visits Authorized [id number] Authorized 10/15/2023 1 8 Encounter Details Date Type Department Care Team (Latest Contact Info) Description 11/12/2023 10:30 AM CDT Clinical Support [facility] Services [address] [place] [address] Jose R Pearson MD [address] [place] [address] Breast cancer metastasized to axillary lymph node, [...] Sign Reading Time Taken Comments Blood Pressure 116/74 11/12/2023 10:32 AM CDT Pulse 67 11/12/2023 10:32 AM CDT Temperature 36.1 ??C (96.9 ??F) 11/12/2023 10:32 AM C DT Respiratory Rate 16 11/12/2023 10:32 AM CDT Oxygen Saturation 99% 11/12/2023 10:32 AM CDT Inhaled Oxygen Concentration - - Weight - - Height - - Body Mass Index - - documented in this encounter Miscellaneous Notes * Interdisciplinary - Jaida Collins RN - 11/12/2023 10:30 AM CDT Presented for scheduled xgeva. Vitals obtained. Medicated per orders, tolerated well. Patient left infusion room in stable condition documented in this encounter Plan of Treatment Upcoming Encounters Date Type Department Care Team (Late st Contact Info) Description 03/23/2024 1:00 PM SHOP LABORER Appointment [facility] Cardiology Services [address] [place] [address] Jose R Pearson MD [address] [place] [address] Discharge Disposition: Discharged to home or Selfcare 03/23/2024 2:30 PM SHOP LABORER Appointment [facility] [address] [place] [address] Jose R Pearson MD [address] [place] [address] Discharge Disposition: Discharged to home or Selfcare 03/30/2024 10:00 AM SHOP LABORER Office Visit [facility] Oncology Services [address] [place] [address] Jose R Pearson MD [address] [place] [address] Discharge Disposition: Discharged to home or Selfcare 03/30/2024 10:30 AM SHOP LABORER Lab [facility] Oncology Services [address] [place] [address] Discharge Disposition: Discharged to home or Selfcare 03/31/2024 1:00 PM SHOP LABORER Clinical Support [facility] Oncology Services [address] [place] [address] Jose R Pearson MD [address] [place] [address] Discharge Disposition: Discharged to home or Selfcare 04/28/2024 1:30 PM SHOP LABORER Clinical Support [facility] Oncology Services [address] [place] [address] Discharge Disposition: Discharged to home or Selfcare [...] 120 mg, Subcutaneous, ONCE, 1 dose, On Fri11/12/23 at 1000, Administer to upper arm, upper thigh, or abdomen.Indications:Breas t cancer metastasized to axillary lymph node, right (HCC),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) Given 11/12/2023 10:33 AM CDT 120 mg Left Lateral Upper Arm documented in this encounter Additional Health Concerns Assessment Noted Time PHQ-9 Depression Total Score: 0 04/01/19 20 9:00 AM SHOP LABORER documented as of this encounter Care Teams Vegetable Farm Worker Relationship Specialty Start Date End Date Iveth Guzman MD [address] [place] [address] PCP - General Family Medicine 05/02/23 Laurence Luque MD [address] [address] Consulting Physician General Surgery 02/01/15 Clemencia Bennett MD [address] [place] [address] Family Medicine 01/30/18 Sony Mcpherson MD [address] [address] Consulting Physician General Surgery 09/08/23 Jose R Pearson MD [address] [place] [address] Consulting Physician Medical Oncology 10/02/23 documented as of this encounter
--- OUTSIDE RECORDS SUMMARY | 2024-03-15 01:48 | XMS_ITS | Encounter Summary ---
Author Organization [facility] Address [address] [place] [address] Phone Care Team Providers Care Carton Inspector Name Role Phone Laurence Luque MD Unavailable [phone] Clemencia Bennett MD Unavailable [phone] Iveth Guzman MD Primary Care Provider + [phone] Sony Mcpherson MD Unavailable [phone] Jose R Pearson MD Unavailable [phone] Reason for Referral * Radiology Services (Routine) - Closed Specialty Diagnoses / Procedures Referred By Martin laguna Referred To Contact Radiology Diagnoses Breast cancer metastasized to axillary lymph node, right (HCC) Drug-induced cardiomyopathy (HCC) Procedures ADULT TRANS THORACIC ECHO 2D COMPLETE Jose R Pearson MD [address] [place] [address] Phone: tel: fax: Referral ID Status Reason Start Date Expiration Date Visits Re quested Visits Authorized [id number] Closed 12/16/2023 1 1 Reason for Visit * Reason Comments Follow-up Encounter Details Date Type Department Care Team ([facility] Contact Info) Description 12/16/2023 1:00 PM CDT Office Visit [facility] [address] [place] [address] Jose R Pearson MD [address] [place] [address] Breast cancer metastasized to axillary lymph node, [...] Sign Reading Time Taken Comments Blood Pressure 146/84 12/16/2023 1:03 PM CDT Pulse 63 12/16/2023 1:03 PM CDT Temperature 35.8 ??C (96.4 ??F) 12/16/2023 1:03 PM CD T Respiratory Rate 18 12/16/2023 1:03 PM CDT Oxygen Saturation 100% 12/16/2023 1:03 PM CDT Inhaled Oxygen Concentration - - Weight 64.4 kg (142 lb) 12/16/2023 1:03 PM CDT Height 154.9 cm (5' 1 ) 12/16/2023 1:03 PM CDT Body Mass Index 26.83 12/16/2023 1:03 PM CDT documented in this encounter Progress Notes * Rosa Galvez - 12/16/2023 1:00 PM CDT Outpatient Hem/Onc Progress Note PROGRESS NOTE Angie Reed is a 53 y.o. female seen today for follow up of recurrent breast cancer after mastectomy involving the chest wall and axillary lymph nodes. Patient currently receiving TCHP every 21 days with C1D1 on 09/23/23, C2D1 10/15/23, C3D1 11/05/23, and C4D1 on 11/26/23. She is here today prior to treatment with Perjeta plus Trazimera every 21 days with plans for continued therapy. For metastatic bone disease patient receives Xgeva 120 mg injection every 4 weeks, started on 10/15/23. Angie reports doing well today. She reports main symptom related to treatment is abdominal cramping, diarrhea, and altered taste. Angie reports decrease in appetite due to change in taste. Reports change in diet to healthier foods contributing to her weight loss since starting treatment. Angie reports diarrhea is well controlled with Imodium and green tea. Patient reports using Zofran in morning to prevent nausea during the day. Angie denies bone pains secondary to malignancy, mild myalgia in the BLE after activity. She reports change in the nails with couple nails on verge of falling off. Angie denies drainage or cutaneous changes. She reports improvement in right chest wall discomfort occurring prior to starting treatment. Reports ability to lay on right side without causing sleep disturbance. Angie reports being scheduled for repeat CT scan on 12/20/23 to assess treatment response. She reports approximate date for last menstrual cycle in early 2019. ECOG PERFORMANCE STATUS: DIAGNOSIS/TREATMENT HISTORY: Recurrent metastatic invasive ductal carcinoma [...] axilla biopsy: pathology confirmed invasive ductal carcinoma, ER/ID positive, Ki67 strong at 80%, with HER2 2+ on IHC, positive on FISH -- PET showed metastatic disease to LN (supraclav, axillary, mediastinal) and osseous mets -- started chemo TCHP cycle 1 on 09/23/23 --12/17/23 plans to proceed to maintenance treatment with Trazimera 441 mg plus Perjeta 420 mg IV every 21 days 2. Malignant breast neoplasm stage I: Pathologic stage T1cN0 -- s/p double mastectomy and right SLNB on 12/01/[address] Luque ---3 distinct foci of invasive ductal carcinoma measuring 11mm, 7mm, and 5mm. ER/ID strongly positive in all tumors that were biopsied. Negative HER2 status. OncotypeDX showed low risk RS (score of 16). BRCA1/2 negative -- Did not need adjuvant RT -- Started Elzama in 12/2013. Took lezama till 2017 then discontinued on her own Reviewed patients past medical, surgical, social, and family history. No outpatient medications have been marked as taking for the 12/16/23 encounter (Appointment) with Jose R Pearson MD. Allergies as of 12/16/2023 (No Known Allergies) REVIEW OF SYSTEMS Review [...] DATA: Lab Results Component Value Date WBC 6.47 11/25/2023 RBC 3.18 (L) 11/25/2023 HEMOGLOBIN 9.8 (L) 11/25/2023 HEMATOCRIT 30.1 (L) 11/25/2023 MCV 94.7 11/25/2023 MCH 30.8 11/25/2023 MCHC 32.6 11/25/2023 PLATELETCNT 193 11/25/2023 RDW 17.3 (H) 11/25/2023 LYMPHOCYTES 35.4 11/25/2023 RELEOS 0.0 11/25/2023 RELBAS 0.6 11/25/2023 ANC 3.61 11/25/2023 MONOCYTES 0.53 11/25/2023 EOSINOPHILS 0.00 11/25/2023 BASOPHILS 0.04 11/25/2023 Lab Results Component Value Date SODIUM 144 11/25/2023 POTASSIUM 3.3 (L) 11/25/2023 CHLORIDE 109 (H) 11/25/2023 ANIONGAP 15.3 11/25/2023 GLUCOSE 113 (H) 11/25/2023 BUN 9 (L) 11/25/2023 CREATININE 0.71 11/25/2023 TOTALPROTEIN 6.1 (L) 11/25/2023 ALBUMIN 4.0 11/25/2023 CALCIUM 9.4 11/25/2023 SGPTALT 31 11/25/2023 ALKALINEPHO 83 11/25/2023 DIAGNOSTIC IMAGING STUDIES: PET scan 09/17/23 IMPRESSION: [...] 65% Assessment: Metastatic breast cancer, ER and ID positive, HER2 demetra positive by FISH Bone mets Diarrhea due to chemo Bone pains after chemo Plan: Patient will complete repeat CT scan on 12/20/23 to assess for treatment response. 2. Continue treatment with Trazimera 441 mg plus Perjeta 420 mg IV every 21 days for treatment of HER2 positive breast cancer. Reviewed treatment will be continued on this treatment until toxicity ordisease progression identified on imaging studies. Discussed possibility of additional hormone modulation therapy to be added based on results of post treatment CT scan. 3. Patient will be monitored with echocardiogram every 3 months to ensure adequate cardiac function, order placed today for patient to complete within the next 3 weeks. 4. Zofran and compazine prn nausea. Imodium PRN diarrhea 5. Continue active physical routine. 6. Continue Xgeva 120 mg SQ every 6 weeks for bone mets. She is edentulous. Continue Calcium 600 mgPO daily to ensure appropriate levels to continue Xgeva treatment. Will call with CT results when able Continue treatment every 3 weeks Follow up in 6 weeks with Echo prior The patient was given an opportunity to ask questions, and all questions answered to patient's satisfaction. Patient verbalizes understanding of the plan as outlined above. The documentation for this visit was completed by Rosa Galvez acting as a scribe for Jose R Wilkes MD. 12/16/2023, 9:03 AM CDT * Jose R Pearson MD - 12/16/2023 1:00 PM CDT Outpatient Hem/Onc Progress Note PROGRESS NOTE Angie Reed is a 53 y.o. female seen today for follow up of recurrent breast cancer after mastectomy involving the chest wall and axillary lymph nodes. Patient currently receiving TCHP every 21 days with C1D1 on 09/23/23, C2D1 10/15/23, C3D1 11/05/23, and C4D1 on 11/26/23. She is here today prior to treatment with Perjeta plus Trazimera every 21 days with plans for continued therapy. For metastatic bone disease patient receives Xgeva 120 mg injection every 4 weeks, started on 10/15/23. Angie reports doing well today. She reports main symptom related to treatment is abdominal cramping, diarrhea, and altered taste. Angie reports decrease in appetite due to change in taste. Reports change in diet to healthier foods contributing to her weight loss since starting treatment. Angie reports diarrhea is well controlled with Imodium and green tea. Patient reports using Zofran in morning to prevent nausea during the day. Angie denies bone pains secondary to malignancy, mild myalgia in the BLE after activity. She reports change in the nails with couple nails on verge of falling off. Angie denies drainage or cutaneous changes. She reports improvement in right chest wall discomfort occurring prior to starting treatment. Reports ability to lay on right side without causing sleep disturbance. Angie reports being scheduled for repeat CT scan on 12/20/23 to assess treatment response. She reports approximate date for last menstrual cycle in early 2018. ECOG PERFORMANCE STATUS:0-1 DIAGNOSIS/TREATMENT HISTORY: Recurrent [...] axilla biopsy: pathology confirmed invasive ductal carcinoma, ER/ID positive, Ki67 strong at 80%, with HER2 [...] ductal carcinoma measuring 11mm, 7mm, and 5mm. ER/ID strongly positive in all tumors that were biopsied. Negative HER2 status. OncotypeDX showed low risk RS (score of 16). BRCA1/2 negative -- Did not need adjuvant RT -- Started Lezama in 12/2013. Took lezama till 2016 then discontinued on her own Reviewed patients past medical, surgical, social, and family history. Outpatient Medications Marked as Taking for the 12/16/23 encounter (Office Visit) with Jose R Pearson MD Medication Sig Dispense Refill atorvastatin (LIPITOR) 10 MG Tablet Take 1 tablet by mouth once daily 90 Tablet 0 Cholecalciferol (Vitamin D) 2000 UNIT Tablet Take 1 Tablet by mouth daily. dexamethasone (DECADRON) 4 MG Tablet Take 2 tablets 2 times a day for 3 days, starting the day before docetaxel. 21 day cycle. 36 Tablet 1 LORazepam (ATIVAN) 0.5 MG Tablet Take 1 Tablet by mouth every 8 hours as needed for Anxiety. 30 Tablet 2 metoprolol tartrate (LOPRESSOR) 25 MG Tablet Take 1 tablet by mouth twice daily 180 Tablet 0 Multiple Vitamin (MULTI-VITAMIN PO) Take 1 Tab by mouth daily. OLANZapine (ZYPREXA) 5 MG Tablet Take 1 Tablet by mouth See Admin Instructions. Take one tablet nightly for 3 nights, starting the day after chemotherapy. 21 day cycle 18 Tablet 0 ondansetron (ZOFRAN) 8 MG Tablet Take 1 Tablet by mouth every 8 hours as needed for Nausea - 1st line. Take one tablet every 8 hours as needed for nausea 20 Tablet 2 prochlorperazine (COMPAZINE) 10 MG Tablet Take 1 Tablet by mouth every 6 hours as needed for Nausea- 2nd line. Take one tablet every 6 hours as needed for nausea. 40 Tablet 2 triamcinolone (KENALOG) 0.1 % Cream Application Site:apply sparingly bid to affected area 45 g 2 Allergies as of 12/16/2023 (No Known Allergies) REVIEW OF SYSTEMS Review [...] DATA: Lab Results Component Value Date WBC 6.47 11/25/2023 RBC 3.18 (L) 11/25/2023 HEMOGLOBIN 9.8 (L) 11/25/2023 HEMATOCRIT 30.1 (L) 11/25/2023 MCV 94.7 11/25/2023 MCH 30.8 11/25/2023 MCHC 32.6 11/25/2023 PLATELETCNT 193 11/25/2023 RDW 17.3 (H) 11/25/2023 LYMPHOCYTES 35.4 11/25/2023 RELEOS 0.0 11/25/2023 RELBAS 0.6 11/25/2023 ANC 3.61 11/25/2023 MONOCYTES 0.53 11/25/2023 EOSINOPHILS 0.00 11/25/2023 BASOPHILS 0.04 11/25/2023 Lab Results Component Value Date SODIUM 144 11/25/2023 POTASSIUM 3.3 (L) 11/25/2023 CHLORIDE 109 (H) 11/25/2023 ANIONGAP 15.3 11/25/2023 GLUCOSE 113 (H) 11/25/2023 BUN 9 (L) 11/25/2023 CREATININE 0.71 11/25/2023 TOTALPROTEIN 6.1 (L) 11/25/2023 ALBUMIN 4.0 11/25/2023 CALCIUM 9.4 11/25/2023 SGPTALT 31 11/25/2023 ALKALINEPHO 83 11/25/2023 DIAGNOSTIC IMAGING STUDIES: PET scan 09/17/23 IMPRESSION: [...] 65% Assessment: Metastatic breast cancer, ER and ID positive, HER2 demetra positive by FISH Bone mets Diarrhea due to chemo Bone pains after chemo Plan: 1. Reviewed patient's recent clinical symptoms, labs and imaging studies. She has completed 4 cycles of TCHP which she has tolerated fairly well aside from some fatigue and diarrhea. Excellent response noted on her right chest wall. Await CT scan which is scheduled for later this week. At this point since she has completed 4 cycles, will transition to maintenance Herceptin and Perjeta every 3 weeks. Patient will complete repeat CT scan on 12/20/23 to assess for treatment response. 2. Continue treatment with Herceptin 6 milligrams/kilogram plus Perjeta 420 mg IV every 21 days fortreatment of HER2 positive breast cancer. Reviewed treatment will be continued on this treatment until toxicity or disease progression identified on imaging studies. Discussed possibility of additional hormone modulation therapy to be added based on results of post treatment CT scan. Will likely add aromatase inhibitor on next visit. 3. Patient will be monitored with echocardiogram every 3 months to ensure adequate cardiac function, order placed today for patient to complete within the next 3 weeks. 4. Zofran and compazine prn nausea. Imodium PRN diarrhea 5. Continue active physical routine. 6. Continue Xgeva 120 mg SQ every 6 weeks for bone mets. She is edentulous. Continue Calcium 600 mgPO daily to ensure appropriate levels to continue Xgeva treatment. Will call with CT results when able Continue treatment every 3 weeks Follow up in 6 weeks with Echo prior The patient was given an opportunity to ask questions, and all questions answered to patient's satisfaction. Patient verbalizes understanding of the plan as outlined above. The documentation for this visit was completed by Rosa Galvez acting as a scribe for Jose R Wilkes MD. 12/16/2023, 1:48 PM CDT The documentation recorded by the scribe was completed while in the exam room with me and the patient. The documentation accurately reflects the service I personally performed and the decisions made by me. I have confirmed and edited the documentation as necessary. Jose R Pearson MD 12/16/2023, 1:49 PM CDT documented in this encounter Miscellaneous Notes * Interdisciplinary - Alanna Rincon CMA - 12/16/2023 1:00 PM CDT Pt here for follow up visit no pain no falls appetite is good no complaints at this time * Interdisciplinary - Alanna Rincon CMA - 12/16/2023 1:00 PM CDT Pt given AVS with infusion nurses scheduling appt documented in this encounter Plan of Treatment Upcoming Encounters Date Type Department Care Team (Late st Contact Info) Description 03/23/2024 1:00 PM SECTION LEADER Appointment [facility] [address] [place] [address] Jose R Pearson MD [address] [place] [address] Discharge Disposition: Discharged to home or Selfcare 03/23/2024 2:30 PM SECTION LEADER Appointment [facility] [address] [place] [address] Jose R Pearson MD [address] [place] [address] Discharge Disposition: Discharged to home or Selfcare 03/30/2024 10:00 AM SECTION LEADER Office Visit [facility] [address] [place] [address] Jose R Pearson MD [address] [place] [address] Discharge Disposition: Discharged to home or Selfcare 03/30/2024 10:30 AM SECTION LEADER Lab [facility] [address] [place] [address] Discharge Disposition: Discharged to home or Selfcare 03/31/2024 1:00 PM SECTION LEADER Clinical Support [facility] [address] [place] [address] Jose R Pearson MD [address] [place] [address] Discharge Disposition: Discharged to home or Selfcare 04/28/2024 1:30 PM SECTION LEADER Clinical Support [facility] [address] [place] [address] Discharge Disposition: Discharged to home or Selfcare documented as of this encounter Goals Goal Patient Goal Type Associated Problems Recent Progress Patient-Stated? Author Exercise 3x per week (30 min per time) Exercise No Chica Saldana MD documented as of this encounter Results * ADULT TRANS THORACIC ECHO 2D COMPLETE [...] Transthoracic Echocardiography Report (TTE) Patient name ? CRYSTAL Laguna ? 1970 Patient ID ([facility]) ? [id number] ? Indications: Adverse Effect of Chemotherapy and [...] (BSA) ? 26.84 kg/m^2 (1.63 ? m^2) Supervisor Shipping ?Franklin Desi Interpreting ? Barrett ?Referring Physician ?Justin ? Physician Procedure Note Justin Hyde MD - 12/23/2023 Transthoracic Echocardiography Report (TTE) Patient name CRYSTAL Laguna Gabriele 1970 Patient ID ([facility]) [id number] Indications: Adverse Effect of Chemotherapy and Hypertension. [...] lbs. BMI (BSA) 26.84 kg/m^2 (1.63 m^2) Supervisor Shipping Rigoberto Weeks Interpreting Hyde Referring Physician Justin Physician Jose R Pearson MD IMG ECHO ORDERABLES Lanny l Result documented in this encounter Visit Diagnoses Diagnosis Breast cancer metastasized to axillary lymph node, right (HCC)- Primary Drug-induced cardiomyopathy (HCC) Secondary cardiomyopathy, unspecified Lung nodule Solitary pulmonary nodule History of bilateral mastectomy Acquired absence of breast and nipple Chemotherapy induced diarrhea Diarrhea Dysgeusia Disturbances of sensation of smell and taste Chemotherapy-induced nausea Nausea alone Breast cancer metastasized to axillary lymph node, right (HCC) Drug-induced cardiomyopathy (HCC) Secondary cardiomyopathy, unspecified documented in this encounter Additional Health Concerns Assessment Noted Time PHQ-9 Depression Total Score: 0 04/01/19 20 9:00 AM SECTION LEADER documented as of this encounter Care Teams Carton Inspector Relationship Specialty Start Date End Date Iveth Guzman MD [address] [place] [address] PCP - General Family Medicine 05/02/23 Laurence Luque MD [address] [address] Consulting Physician General Surgery 02/01/15 Clemencia Bennett MD [address] [place], [place] [id number] Family Medicine 01/30/18 Sony Mcpherson MD [address] [address] Consulting Physician General Surgery 09/08/23 Jose R Pearson MD [address] [place] [address] Consulting Physician Medical Oncology 10/02/23 documented as of this encounter
--- OUTSIDE RECORDS SUMMARY | 2024-03-15 01:48 | XMS_ITS | Encounter Summary ---
Author Organization [facility] Address [address] [place] [address] Phone Care Team Providers Care Online Marketing Coordinator Name Role Phone Laurence Luque MD Unavailable + [phone] Clemencia Bennett MD Unavailable [phone] Iveth Guzman MD Primary Care Provider + [phone] Sony Mcpherson MD Unavailable [phone] Jose R Pearson MD Unavailable [phone] Reason for Referral * Radiology Services (Routine) - Closed Specialty Diagnoses / Procedures Referred By Contac t Referred To Contact Radiology Diagnoses Breast cancer metastasized to axillary lymph node, right (HCC) Drug-induced cardiomyopathy (HCC) Procedures ADULT TRANS THORACIC ECHO 2D COMPLETE Jose R Pearson MD [address] [place] [address] Phone: tel: fax: Referral ID Status Reason Start Date Expiration Date Visits Re quested Visits Authorized [id number] Closed 12/16/2023 1 1 Reason for Visit * Radiology Services (Routine) - Closed Specialty Diagnoses / Procedures Referred By Contac t Referred To Contact Radiology Diagnoses Breast cancer metastasized to axillary lymph node, right (HCC) Drug-induced cardiomyopathy (HCC) Procedures ADULT TRANS THORACIC ECHO 2D COMPLETE Jose R Pearson MD [address] [place] [address] Phone: tel: fax: Referral ID Status Reason Start Date Expiration Date Visits Re quested Visits Authorized [id number] Closed 12/16/2023 1 1 Encounter Details Date Type Department Care Team (Latest Contact Info) Description 12/23/2023 11:00 AM CDT - 12/23/2023 11:59 PM CDT Hospital Encounter [facility] Cardiology Services [address] [place] [address] Jose R Pearson MD [address] [place], [place] [id number] Discharge Disposition: Discharged to home or Selfcare [...] on file documented as of this encounter Medications at Time of Discharge Cholecalciferol (Vitamin D) 2000 UNIT Tablet Take 1 Tablet by mouth daily. 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 21 day cycle. 36 Tablet 1 09/23/2023 LORazepam (ATIVAN) 0.5 MG TabletIndications:R ecurrent malignant neoplasm of right breast (HCC) Take 1 Tablet by mouth every 8 hours as needed for Anxiety. 30 Tablet 2 10/02/2023 metoprolol tartrate (LOPRESSOR) 25 MG TabletIndications:E ssential hypertension Take 1 tablet by mouth twice daily 180 Tablet 10/30/2023 Multiple Vitamin (MULTI-VITAMIN PO) Take 1 Tab by mouth daily. 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 Take one tablet every 6 hours as needed for nausea. 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 Take one tablet nightly for 3 nights, starting the day after chemotherapy. 21 day cycle 18 Tablet 09/23/2023 01/01/20 24 documented as of this encounter Plan of Treatment Upcoming Encounters Date Type Department Care Team (Late st Contact Info) Description 03/23/2024 1:00 PM HOME ASSESSMENT NURSE Appointment [facility] [address] [facility] [place] [address] Jose R Pearson MD [address] [place] [address] Discharge Disposition: Discharged to home or Selfcare 03/23/2024 2:30 PM HOME ASSESSMENT NURSE [facility]ointment [facility] [address] [place] [address] Jose R Pearson MD [address] [place] [address] Discharge Disposition: Discharged to home or Selfcare 03/30/2024 10:00 AM HOME ASSESSMENT NURSE Office Visit [facility] Oncology Services [address] [place] [address] [place] [address] [place] [address] Discharge Disposition: Discharged to home or Selfcare 03/30/2024 10:30 AM HOME ASSESSMENT NURSE Lab [facility] Oncology Services [address] [place] [address] Discharge Disposition: Discharged to home or Selfcare 03/31/2024 1:00 PM HOME ASSESSMENT NURSE Clinical Support [facility] Oncology Services [address] [place] [address] [place] [address] [place] [address] Discharge Disposition: Discharged to home or Selfcare 04/28/2024 1:30 PM HOME ASSESSMENT NURSE Clinical Support [facility] Oncology Services [address] [place] [address] Discharge Disposition: Discharged to home or Selfcare documented as of this encounter Goals Goal Patient Goal Type Associated Problems Recent Progress Patient-Stated? Author Exercise 3x per week (30 min per time) Exercise Chica Louis MD documented as of this encounter Procedures Procedure Name Priority Date/Time Associated Diagnosis Comments ADULT TRANS THORACIC ECHO 2D COMPLETE Routine 12/23/2023 11:43 AM CDT Breast cancer metastasized to axillary lymph node, right (HCC) Drug-induced cardiomyopathy (HCC) documented in this encounter Results * ADULT TRANS THORACIC [...] Echocardiography Report (TTE) Patient name ? CRYSTAL MUÑOZ T ? 1970 Patient ID (UPI) ? [id number] ? Indications: Adverse Effect of Chemotherapy and [...] (BSA) ? 26.84 kg/m^2 (1.63 ? m^2) Diversity Specialist ?Franklin Desi Interpreting ? Hyde ?Referring Physician ?Justin ? Physician Procedure Note Justin Hyde MD - 12/23/2023 Transthoracic Echocardiography Report (TTE) Patient name CRYSTAL Suazo 1970 Patient ID (UPI) [id number] Indications: Adverse Effect of Chemotherapy and Hypertension. [...] lbs. BMI (BSA) 26.84 kg/m^2 (1.63 m^2) Diversity Specialist Rigoberto Childers Hyde Referring Physician Justin Physician Jose R Giovanna Pearson MD IMG ECHO ORDERABLES Lanny l Result documented in this encounter Visit Diagnoses Diagnosis Breast cancer metastasized to axillary lymph node, right (HCC) Drug-induced cardiomyopathy (HCC) Secondary cardiomyopathy, unspecified documented in this encounter Additional Health Concerns Assessment Noted Time PHQ-9 Depression Total Score: 0 04/01/19 20 9:00 AM HOME ASSESSMENT NURSE documented as of this encounter Care Teams Online Marketing Coordinator Relationship Specialty Start Date End Date Iveth Guzman MD [address] [place] [address] PCP - General Family Medicine 05/02/23 Laurence Luque MD [address] [phone] Consulting Physician General Surgery 02/01/15 Clemencia Bennett MD [address] [place], [place] [id number] Family Medicine 01/30/18 Sony Mcpherson MD [address] [address] Consulting Physician General Surgery 09/08/23 Jose R Pearson MD [address] [place] [address] Consulting Physician Medical Oncology 10/02/23 documented as of this encounter
--- OUTSIDE RECORDS SUMMARY | 2024-03-15 01:48 | XMS_ITS | Encounter Summary ---
Author Organization [facility] Address [address] 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) Jose R Pearson MD [address] [place] [address] Phone: tel: fax: [facility] Oncology Services [address] [place] [address] Phone: tel: fax: Referral ID Status Reason Start Date Expiration Date V isits Requested Visits Authorized [id number] Authorized 10/15/2023 1 8 Encounter Details Date Type Department Care Team (Latest Contact Info) Description 10/15/2023 9:00 AM CDT Clinical Support [facility] Oncology Services [address] [place] [phone] [address] Angela Bethea, PAC [address] [place] [address] Jose R Pearson MD [address] [place] [address] Breast cancer metastasized to axillary lymph node, [...] Sign Reading Time Taken Comments Blood Pressure 130/83 10/15/2023 8:48 AM CDT Pulse 64 10/15/2023 8:48 AM CDT Temperature 36.8 ??C (98.3 ??F) 10/15/2023 8:48 AM CD T Respiratory Rate 15 10/15/2023 8:48 AM CDT Oxygen Saturation - - Inhaled Oxygen Concentration - - Weight - - Height 154.9 cm (5' 1 ) 10/15/2023 8:48 AM CDT Body Mass Index - - documented in this encounter Miscellaneous Notes * Interdisciplinary - Jaida Collins RN - 10/15/2023 9:00 AM CDT Presents for scheduled chemotherapy. Vitals obtained and port accessed per protocol, flushed easilybut no blood return. Per MD, ok to use as long as it flushed well.. Per MD, xgeva given and treatment plan placed for q 6 weeks. Treatment given as ordered, tolerated well. Port de-accessed and band-aid applied. Left infusion room in stable condition. documented in this encounter Plan of Treatment Upcoming Encounters Date Type Department Care Team (Late st Contact Info) Description 03/23/2024 1:00 PM ADOPTION AGENT Appointment [facility] Cardiology Services [address] [place] [address] Jose R Pearson MD [address] [place] [address] Discharge Disposition: Discharged to home or Selfcare 03/23/2024 2:30 PM ADOPTION AGENT Appointment [facility] [address] [place] [address] Jose R Pearson MD [address] [place] [address] Discharge Disposition: Discharged to home or Selfcare 03/30/2024 10:00 AM ADOPTION AGENT Office Visit [facility] Oncology Services [address] [place] [address] Jose R Pearson MD [address] [place] [address] Discharge Disposition: Discharged to home or Selfcare 03/30/2024 10:30 AM ADOPTION AGENT Lab [facility] Oncology Services [address] [place] [address] Discharge Disposition: Discharged to home or Selfcare 03/31/2024 1:00 PM ADOPTION AGENT Clinical Support [facility] Oncology Services [address] [place] [address] Jose R Pearson MD [address] [place] [address] Discharge Disposition: Discharged to home or Selfcare 04/28/2024 1:30 PM ADOPTION AGENT Clinical Support [facility] On[facility] Services [address] [place] [address] Discharge Disposition: Discharged to home or Selfcare [...] 50 mL/hr, Intravenous, ONCE, 1 dose, On Fri10/15/23 at 0930Indications:Breast cancer metastasized to axillary lymph node, right (HCC) New Bag 10/15/2023 9:06 AM CDT 250 mL 50 mL/hr CARBOplatin 367 mg in sodium chloride 0.9 % 250 mL chemo infusion 367 mg (Target AUC = 5), Intravenous, ONCE, 1 dose, On Fri10/15/23 at 0930, Administer over 30 MinutesIndications:Poly st cancer metastasized to axillary lymph node, right (HCC),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) New Bag 10/15/2023 12:12 PM CDT 367 mg denosumab (XGEVA) injection 120 mg 120 mg, Subcutaneous, ONCE, 1 dose, On Fri10/15/23 at 1130, Administer to upper arm, upper thigh, or abdomen.Indications:Asp[place] ast cancer metastasized to axillary lymph node, right (HCC),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 1.77 m2 Treatment Plan BSA from Recorded weight), Intravenous, ONCE, 1 dose, On Fri10/15/23 at 0930, Administer over 60 Minutes, Should be dispensed in either glass or non-PVC containers (eg, ExcelT/PABT). 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) New Bag 10/15/2023 9:15 AM CDT 150 mg Heparin Na (Pork) Lock Flsh PF SOLN 50 Units 50 Units, Intravenous, PRN, Starting on Fri10/15/23 at 0850, Until Fri10/15/23 at 1458, Line Care, Line care per [employer] [facility] [employer].Indications:Breast cancer metastasized to axillary lymph node, right (HCC),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) Given 10/15/2023 12:57 PM CDT 50 Units OLANZapine (ZYPREXA) tablet 5 mg 5 mg, Oral, ONCE, 1 dose, On Fri10/15/23 at 0930Indications:Breast cancer metastasized to axillary lymph node, right (HCC),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) Given 10/15/2023 9:07 AM CDT 5 mg ondansetron (ZOFRAN) injection 8 mg 8 mg, Intravenous, ONCE, 1 dose, On Fri10/15/23 at 0930Indications:Breast cancer metastasized to axillary lymph node, right (HCC),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 73 kg Treatment plan Recorded weight), Intravenous, ONCE, 1 dose, On Fri10/15/23 at 0930, Administered by IV infusion; loading doses are infused over 90 minutes; maintenance doses may be infused over 30 minutes if tolerated. Do not administer with D5W. Do not administer IV push or by rapid bolus. 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) New 10/15/2023 10:28 AM CDT 441 mg documented in this encounter Additional Health Concerns Assessment Noted Time PHQ-9 Depression Total Score: 0 04/01/19 20 9:00 AM ADOPTION AGENT documented as of this encounter Care Teams Customer Engagement Specialist Relationship Specialty Start Date End Date Ivteh Guzman MD [address] [place] [address] PCP - General Family Medicine 05/02/23 Laurence Luque MD [address] [phone] Consulting Physician General Surgery 02/01/15 Clemencia Bennett MD [address] [place] [address] Family Medicine 01/30/18 Sony Mcpherson MD [address] [address] Consulting Physician General Surgery 09/08/23 Jose R Pearson MD [address] [place] [address] Consulting Physician Medical Oncology 10/02/23 documented as of this encounter
--- OUTSIDE RECORDS SUMMARY | 2024-03-15 01:48 | XMS_ITS | Encounter Summary ---
Author Organization [facility] Address [address] [place] [place] [address] Phone Care Team Providers Care Risk Management Professional Name Role Phone Laurence Luque MD Unavailable Clemencia Bennett MD Unavailable Iveth Guzman MD Primary Care Provider [phone] Sony Mcpherson MD Unavailable Jose R Pearson MD Unavailable Encounter Details Date Type Department Care Team (Latest Contact Info) Description 12/16/2023 1:40 PM CDT Clinical Support [facility] Oncology Services [address] [place] [phone] Jose R Pearson MD [address] [place] [address] Breast cancer metastasized to axillary lymph node, [...] this encounter Miscellaneous Notes * Interdisciplinary - Justen Godoy RN - 12/16/2023 1:40 PM CDT Pt ambulated to lab room. Labs drawn x1 attempt to LAC. Pt tolerated well. Site covered with gauze and secured. Pt left in stable condition. documented in this encounter Plan of Treatment Upcoming Encounters Date Type Department Care Team (Late st Contact Info) Description 03/23/2024 1:00 PM JIG HAND Appointment [facility] Cardiology Services [address] [place] [address] Jose R Pearson MD [address] [place] [address] Discharge Disposition: Discharged to home or Selfcare 03/23/2024 2:30 PM JIG HAND Appointment [facility] [address] [place] [address] Jose R Pearson MD [address] [place] [address] Discharge Disposition: Discharged to home or Selfcare 03/30/2024 10:00 AM JIG HAND Office Visit [facility] On[facility] Services [address] [place] [phone] Jose R Pearson MD [address] [place] [address] Discharge Disposition: Discharged to home or Selfcare 03/30/2024 10:30 AM JIG HAND Lab [facility] Oncology Services [address] [place] [address] Discharge Disposition: Discharged to home or Selfcare 03/31/2024 1:00 PM JIG HAND Clinical Support [facility] Oncology Services [address] [place] [address] [place] [address] [place] [address] Discharge Disposition: Discharged to home or Selfcare 04/28/2024 1:30 PM JIG HAND Clinical Support [facility] Oncology Services [address] [place] [address] Discharge Disposition: Discharged to home or Selfcare documented as of this encounter Goals Goal Patient Goal Type Associated Problems Recent Progress Patient-Stated? Author Exercise 3x per week (30 min per time) Exercise No Chica Saldana MD documented as of this encounter Procedures Procedure Name Priority Date/Time Associated Diagnosis Comments CBC WITH AUTO DIFFERENTIAL STAT 12/16/2023 1:47 [...] Results * (ABNORMAL) CBC WITH AUTO DIFFERENTIAL (12/16/2023 1:47 PM CDT) WBC 6.57 4.00 - 12.00 10(3)/mcL 12/16/2023 2:14 PM CDT [facility] RBC 3.27(L) 3.80 - 5.30 10(6)/mcL 12/16/2023 2:14 PM CDT [facility] HEMOGLOBIN (HGB) 10.4(L) 12.0 - 15.8 g/dL 12/16/2023 2:14 PM CDT [facility] HEMATOCRIT (HCT) 32.3(L) 36.0 - 47.0 % 12/16/2023 2:14 PM CDT [facility] MCV 98.8(H) 82.0 - 96.0 fL 12/16/2023 2:14 PM CDT [facility] MCH 31.8 26.0 - 34.0 pg 12/16/2023 2:14 PM CDT [facility] MCHC 32.2 31.0 - 36.0 g/dL 12/16/2023 2:14 PM CDT [facility] PLATELET COUNT 180 140 - 440 10(3)/mcL 12/16/2023 2:14 PM CDT [facility] RDW 17.8(H) 11.8 - 15.5 % 12/16/2023 2:14 PM CDT [facility] MPV 9.5(L) 9.7 - 12.4 fL 12/16/2023 2:14 PM CDT [facility] NEUTROPHILS 56.8 47.0 - 73.0 % 12/16/2023 2:14 PM CDT [facility] LYMPHOCYTES 34.2 18.0 - 42.0 % 12/16/2023 2:14 PM CDT [facility] MONOCYTES 8.4 4.0 - 12.0 % 12/16/2023 2:14 PM CDT [facility] EOSINOPHILS 0.0 0.0 - 5.0 % 12/16/2023 2:14 PM CDT [facility] BASOPHILS 0.6 0.0 - 1.0 % 12/16/2023 2:14 PM CDT [facility] ABSOLUTE NEUTROPHILS 3.73 1.60 - 7.70 10(3)/mcL 12/16/2023 2:14 PM CDT [facility] ABSOLUTE LYMPHOCYTES 2.25 1.30 - 3.20 10(3)/mcL 12/16/2023 2:14 PM CDT [facility] ABSOLUTE MONOCYTES 0.55 0.20 - 1.00 10(3)/mcL 12/16/2023 2:14 PM CDT [facility] ABSOLUTE EOSINOPHIL 0.00 0.00 - 0.40 10(3)/mcL 12/16/2023 2:14 PM CDT [facility] ABSOLUTE BASOPHILS 0.04 0.00 - 0.10 10(3)/mcL 12/16/2023 2:14 PM CDT [facility] NRBC PER 100 WBC 0 12/16/19 2:14 PM CDT [facility] Blood Venipuncture / Unknown 12/16/2023 1:47 PM CDT 12/16/2023 1:47 PM CDT us Jose R Pearson MD HEMATOLOGY ORDERABLES Fi nal Result [facility] [address] [place] [address] * (ABNORMAL) CMP (COMPREHENSIVE METABOLIC PANEL) (12/16/2023 1:47 PM CDT) SODIUM 140 136 - 145 mmol/L 12/16/2023 2:36 PM CDT [facility] POTASSIUM 3.8 3.5 - 5.1 mmol/L 12/16/2023 2:36 PM CDT [facility] CHLORIDE 107 98 - 107 mmol/L 12/16/2023 2:36 PM CDT [facility] CO2, VENOUS 26 22 - 30 mmol/L 12/16/2023 2:36 PM CDT [facility] ANION GAP 10.8 <18.0 mmol/L 12/16/2023 2:36 PM CDT [facility] GLUCOSE 102(H) 70 - 99 mg/dL 12/16/2023 2:36 PM CDT [facility] BUN 7(L) 10 - 20 mg/dL 12/16/2023 2:36 PM T [facility] CREATININE, BLOOD 0.74 0.60 - 1.00 mg/dL 12/16/2023 2:36 PM T [facility] BUN/CREATININE RATIO 9(L) 12 - 20 ratio 12/16/2023 2:36 PM CDT [facility] TOTAL PROTEIN 6.3 6.3 - 8.2 g/dL 12/16/2023 2:36 PM CDT [facility] ALBUMIN 4.1 3.5 - 5.0 g/dL 12/16/2023 2:36 PM T [facility] A/G RATIO 1.9 1.0 - 2.2 12/16/2023 2:36 PM CDT [facility] CALCIUM 9.9 8.7 - 10.5 mg/dL 12/16/2023 2:36 PM T [facility] T BILI 0.5 0.2 - 1.2 mg/dL 12/16/2023 2:36 PM T [facility] SGOT (AST) 29 5 - 34 U/L 12/16/2023 2:36 PM [facility] SGPT (ALT) 24 0 - 55 U/L 12/16/2023 2:36 PM T [facility] ALKALINE PHOSPHATASE 67 40 - 150 U/L 12/16/2023 2:36 PM [facility] IS THE PATIENT REQUIRED TO BE FASTING? No 12/16/2023 2:36 PM T [facility] GFR, ESTIMATED >60 >=60 12/16/2023 2:36 PM [facility] Comment: Creatinine Clearance is the preferred criteria for selecting drug dose adjustments in renally impaired patients. ??The GFR is provided as additional pertinent clinical information. GFR is reported in mL/min/1.73 sq m. Calculation based on the Chronic Kidney Disease Epidemiology Collaboration (CKD- EPI) equation refit without adjustment for race. GFR, EST. >60 >=60 024 2:36 PM CDT [facility] GFR, EST. 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) documented in this encounter Additional Health Concerns Assessment Noted Time PHQ-9 Depression Total Score: 0 04/01/19 20 9:00 AM JIG HAND documented as of this encounter Care Teams Risk Management Professional Relationship Specialty Start Date End Date Iveth Guzman MD [address] [place] [address] PCP - General Family Medicine 05/02/23 Laurence Luque MD [address] [address] Consulting Physician General Surgery 02/01/15 Clemencia Bennett MD [address] [place] [address] Family Medicine 01/30/18 Sony Mcpherson MD #[address] [address] Consulting Physician General Surgery 09/08/23 Jose R Pearson MD [address] [place] [address] Consulting Physician Medical Oncology 10/02/23 documented as of this encounter
--- OUTSIDE RECORDS SUMMARY | 2024-03-15 01:48 | XMS_ITS | Encounter Summary ---
Author Organization [facility] Address [address] 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) Procedures CT CHEST ABDOMEN AND PELVIS W CONTRAST Jose R Pearson MD [address] [place] [address] Phone: tel: fax: Referral ID Status Reason Start Date Expiration Date Visits Re quested Visits Authorized [id number] Closed 11/26/2023 1 1 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) Jose R Pearson MD [address] [place] [address] Phone: tel: fax: [facility] Oncology Services [address] [place] [address] Phone: tel: fax: Referral ID Status Reason Start Date Expiration Date V isits Requested Visits Authorized [id number] Authorized 09/16/2023 1 16 Encounter Details Date Type Department Care Team (Latest Contact Info) Description 11/26/2023 9:00 AM CDT Clinical Support [facility] Oncology Services [address] [place] [address] Jose R Pearson MD [address] [place] [address] Breast cancer metastasized to axillary lymph node, [...] Sign Reading Time Taken Comments Blood Pressure 159/84 11/26/2023 9:05 AM CDT Pulse 55 11/26/2023 9:05 AM CDT Temperature 36.3 ??C (97.3 ??F) 11/26/2023 9:05 AM CD T Respiratory Rate 16 11/26/2023 9:05 AM CDT Oxygen Saturation 98% 11/26/2023 9:05 AM CDT Inhaled Oxygen Concentration - - Weight 68.8 kg (151 lb 9.6 oz) 11/26/2023 9:05 A M CDT Height - - Body Mass Index 28.64 11/05/2023 11:44 AM CDT documented in this encounter Miscellaneous Notes * Interdisciplinary - Sister Sisi Barajas RN - 11/26/2023 9:00 AM CDT Patient arrived and VS obtained. Port accessed per protocol x1 attempt. Flushed easily with no blood return. Per patient no blood return has been noted in a long time. Denies any pain or burning whenflushed. Medications given as ordered. Patient tolerated well. Port flushed with NS and heparin. Needle removed and site covered with bandaid. Patient left treatment area in stable condition. documented in this encounter Plan of Treatment Upcoming Encounters Date Type Department Care Team (Late st Contact Info) Description 03/23/2024 1:00 PM PINION AND WHEEL TRUER Appointment [facility] Cardiology Services [address] [place] [address] Jose R Pearson MD [address] [place] [address] Discharge Disposition: Discharged to home or Selfcare 03/23/2024 2:30 PM PINION AND WHEEL TRUER [facility]ment [facility] [address] [place] [address] Jose R Pearson MD [address] [place] [address] Discharge Disposition: Discharged to home or Selfcare 03/30/2024 10:00 AM PINION AND WHEEL TRUER [facility] [address] [place] [address] Jose R Pearson MD [address] [place] [address] Discharge Disposition: Discharged to home or Selfcare 03/30/2024 10:30 AM PINION AND WHEEL TRUER Lab [facility] Oncology Services [address] [place] [address] Discharge Disposition: Discharged to home or Selfcare 03/31/2024 1:00 PM PINION AND WHEEL TRUER Clinical Support [facility] Oncology Services [address] [place] [address] [place] [address] [place] [address] Discharge Disposition: Discharged to home or Selfcare 04/28/2024 1:30 PM PINION AND WHEEL TRUER Clinical Support [facility] Oncology Services [address] [place] [address] Discharge Disposition: Discharged to home or Selfcare documented as of this encounter Goals Goal Patient Goal Type Associated Problems Recent Progress Patient-Stated? Author Exercise 3x per week (30 min per time) Exercise No Chica Saldana MD documented as of this encounter Results * CT CHEST ABDOMEN AND PELVIS W [...] PM T: ??12/23/2023 3:24 PM Report ID: [id number] Reading Location: ??[id number] Procedure Note Nasima Lopez DO - 12/23/2023 [...] Nasima Lopez D.O. PS: PS Report ID: [id number] Reading Location: [place] [address] IMPRESSION: Interval decrease in size of the [...] without definite evidence of diverticulitis. Normal appendix. 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) documented in this encounter Administered Medications Inactive Administered Medications - up to 3 most recent administrations Medication Order MAR Action Action Date Dose Rate Site 0.9 % sodium chloride solution at 50 mL/hr, Intravenous, ONCE, 1 dose, On Fri11/26/23 at 1000, 250mL bagIndications:Breast cancer metastasized to axillary lymph node, right (HCC) New 11/26/2023 9:25 AM CDT 50 mL/h r CARBOplatin 332.4 mg in sodium chloride 0.9 % 250 mL chemo infusion 332.4 mg (Target AUC = 4), Intravenous, ONCE, 1 dose, On Fri11/26/23 at 0930, Administer over 30 MinutesIndications:Breast cancer metastasized to axillary lymph node, right (HCC),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 1.77 m2 Treatment Plan BSA from Recorded weight), Intravenous, ONCE, 1 dose, On Fri11/26/23 at 0930, Administer over 60 Minutes, Should be dispensed in either glass or non-PVC containers (eg, ExcelT/PABT). 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) New Bag 11/26/2023 9:34 AM CDT 150 mg Heparin Na (Pork) Lock Flsh PF SOLN 50 Units 50 Units, Intravenous, PRN, Starting on Fri11/26/23 at 0906, Until Fri11/26/23 at 1608, Line Care, Line care per [employer] Grid.Indications:Breast cancer metastasized to axillary lymph node, right (HCC),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) Given 11/26/2023 1:50 PM CDT 50 Units OLANZapine (ZYPREXA) tablet 5 mg 5 mg, Oral, ONCE, 1 dose, On Fri11/26/23 at 0930Indications:Breast cancer metastasized to axillary lymph node, right (HCC),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) Given 11/26/2023 9:22 AM CDT 5 mg ondansetron (ZOFRAN) injection 8 mg 8 mg, Intravenous, ONCE, 1 dose, On Fri11/26/23 at 0930Indications:Breast cancer metastasized to axillary lymph node, right (HCC),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 73 kg Treatment plan Recorded weight), Intravenous, ONCE, 1 dose, On Fri11/26/23 at 0930, Administered by IV infusion; loading doses are infused over 90 minutes; maintenance doses may be infused over 30 minutes if tolerated. Do not administer with D5W. Do not administer IV push or by rapid bolus. 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) New Bag 11/26/2023 11:17 AM CDT 441 mg documented in this encounter Additional Health Concerns Assessment Noted Time PHQ-9 Depression Total Score: 0 04/01/19 20 9:00 AM PINION AND WHEEL TRUER documented as of this encounter Care Teams Hogshead Head Matcher Relationship Specialty Start Date End Date Iveth Guzman MD [address] [place] [address] PCP - General Family Medicine 05/02/23 Lauernce Luque MD [address] [address] Consulting Physician General Surgery 02/01/15 Clemencia Bennett MD [address] [place] [address] Family Medicine 01/30/18 Sony Mcpherson MD [address] [address] Consulting Physician General Surgery 09/08/23 Jose R Pearson MD [address] [place] [address] Consulting Physician Medical Oncology 10/02/23 documented as of this encounter
--- OUTSIDE RECORDS SUMMARY | 2024-03-15 01:48 | XMS_ITS | Encounter Summary ---
Author Organization [facility] Care Team Providers Care Production Tester Name Role Phone Laurence Luque MD Unavailable + [phone] Clemencia Bennett MD Unavailable [phone] Iveth Guzman MD Primary Care Provider + [phone] Sony Mcpherson MD Unavailable [phone] Jose R Pearson MD Unavailable [phone] Encounter Details Date Type Department Care Team (Latest Contact Info) Description 12/16/2023 Travel Social History Tobacco Use Types Packs/Day [...] st Contact Info) Description 03/23/2024 1:00 PM BUSPERSON Appointment [facility] [address] [place] [address] Jose R Pearson MD [address] [place] [address] Discharge Disposition: Discharged to home or Selfcare 03/23/2024 2:30 PM BUSPERSON Appointment [facility] [address] [place] [address] Jose R Pearson MD [address] [place] [address] Discharge Disposition: Discharged to home or Selfcare 03/30/2024 10:00 AM BUSPERSON Office Visit [facility] Oncology Services [address] [place] [address] Jose R Pearson MD [address] [place] [address] Discharge Disposition: Discharged to home or Selfcare 03/30/2024 10:30 AM BUSPERSON Lab [facility] Oncology Services [address] [place] [address] Discharge Disposition: Discharged to home or Selfcare 03/31/2024 1:00 PM BUSPERSON Clinical Support [facility] Oncology Services [address] [place] [address] Jose R Pearson MD [address] [place] [address] Discharge Disposition: Discharged to home or Selfcare 04/28/2024 1:30 PM BUSPERSON Clinical Support [facility] Oncology Services [address] [place] [address] Discharge Disposition: Discharged to home or Selfcare documented as of this encounter Goals Goal Patient Goal Type Associated Problems Recent Progress Patient-Stated? Author Exercise 3x per week (30 min per time) Exercise Chica Louis MD documented as of this encounter Visit Diagnoses Not on filedocumented in this encounter Additional Health Concerns Assessment Noted Time PHQ-9 Depression Total Score: 0 04/01/19 20 9:00 AM BUSPERSON documented as of this encounter Care Teams Production Tester Relationship Specialty Start Date End Date Iveth Guzman MD [address] [place] [address] PCP - General Family Medicine 05/02/23 Laurence Luque MD [address] [address] Consulting Physician General Surgery 02/01/15 Clemencia Bennett MD [address] [place] [address] Family Medicine 01/30/18 Sony Mcpherson MD [address] [address] Consulting Physician General Surgery 09/08/23 Jose R Pearson MD [address] [place] [address] Consulting Physician Medical Oncology 10/02/23 documented as of this encounter
--- OUTSIDE RECORDS SUMMARY | 2024-03-15 01:48 | XMS_ITS | Encounter Summary ---
Author Organization [facility] [employer] [facility] Care Team Providers Care Solvent Process Extractor Operator Name Role Phone Laurence Luque MD Unavailable + [phone] Clemencia Bennett MD Unavailable [phone] Iveth Guzman MD Primary Care Provider + [phone] Sony Mcpherson MD Unavailable [phone] Jose R Pearson MD Unavailable [phone] Encounter Details Date Type Department Care Team (Latest Contact Info) Description 11/06/2023 Travel Social History Tobacco Use Types Packs/Day [...] st Contact Info) Description 03/23/2024 1:00 PM GED TUTOR [facility]ment [facility] [address] [place] [address] Jose R Pearson MD [address] [place] [address] Discharge Disposition: Discharged to home or Selfcare 03/23/2024 2:30 PM GED TUTOR Appointment [facility] [address] [place] [address] Jose R Pearson MD [address] [place] [address] Discharge Disposition: Discharged to home or Selfcare 03/30/2024 10:00 AM GED TUTOR Office Visit [facility] Oncology Services [address] [place] [address] Jose R Pearson MD [address] [place] [address] Discharge Disposition: Discharged to home or Selfcare 03/30/2024 10:30 AM GED TUTOR Lab [facility] Oncology Services [address] [place] [address] Discharge Disposition: Discharged to home or Selfcare 03/31/2024 1:00 PM GED TUTOR Clinical Support [facility] Oncology Services [address] [place] [address] Jose R Pearson MD [address] [place] [address] Discharge Disposition: Discharged to home or Selfcare 04/28/2024 1:30 PM GED TUTOR Clinical Support [facility] Oncology Services [address] [place] [address] Discharge Disposition: Discharged to home or Selfcare documented as of this encounter Goals Goal Patient Goal Type Associated Problems Recent Progress Patient-Stated? Author Exercise 3x per week (30 min per time) Exercise Chica Louis MD documented as of this encounter Visit Diagnoses Not on filedocumented in this encounter Additional Health Concerns Assessment Noted Time PHQ-9 Depression Total Score: 0 04/01/19 20 9:00 AM GED TUTOR documented as of this encounter Care Teams Solvent Process Extractor Operator Relationship Specialty Start Date End Date Iveth Guzman MD [address] [place] [address] PCP - General Family Medicine 05/02/23 Laurence Luque MD [address] [address] Consulting Physician General Surgery 02/01/15 Clemencia Bennett MD [address] [place] [address] Family Medicine 01/30/18 Sony Mcpherson MD [address] [address] Consulting Physician General Surgery 09/08/23 Jose R Pearson MD [address] [place] [address] Consulting Physician Medical Oncology 10/02/23 documented as of this encounter
--- OUTSIDE RECORDS SUMMARY | 2024-03-15 01:48 | XMS_ITS | Encounter Summary ---
Author Organization [facility] Address [address] [place] [address] Phone Care Team Providers Care Lehr Cutter Name Role Phone Laurence Luque MD Unavailable Clemencia Bennett MD Unavailable Iveth Guzman MD Primary Care Provider [phone] Sony Mcpherson MD Unavailable Jose R Pearson MD Unavailable [phone] Encounter Details Date Type Department Care Team (Late st Contact Info) Description 01/01/2024 Telephone [facility] Oncology Services [address] [place] [address] Jose R Pearson MD [address] [place], [place] [address] Social History Tobacco Use Types Packs/Day Years [...] encounter Miscellaneous Notes * Telephone Encounter - Dulce Diaz RN - 01/01/2024 4:53 PM CDT Returned call to [employer] from message left regarding Olanzapine refill. Patient has completed her cycles of TC and no longer requires. documented in this encounter Plan of Treatment Upcoming Encounters Date Type Department Care Team (Late st Contact Info) Description 03/23/2024 1:00 PM TRAVELING BUYER Appointment [facility] Cardiology Services [address] [place] [address] Jose R Pearson MD [address] [place] [address] Discharge Disposition: Discharged to home or Selfcare 03/23/2024 2:30 PM TRAVELING BUYER Appointment [facility] [address] [place] [address] Jose R Pearson MD [address] [place] [address] Discharge Disposition: Discharged to home or Selfcare 03/30/2024 10:00 AM TRAVELING BUYER [facility] [address] [place] [address] Jose R Pearson MD [address] [place] [address] Discharge Disposition: Discharged to home or Selfcare 03/30/2024 10:30 AM TRAVELING BUYER Lab [facility] [address] [place] [address] Discharge Disposition: Discharged to home or Selfcare 03/31/2024 1:00 PM TRAVELING BUYER Clinical Support [facility] Oncology Services [address] [place] [address] Jose R Pearson MD [address] [place] [address] Discharge Disposition: Discharged to home or Selfcare 04/28/2024 1:30 PM TRAVELING BUYER Clinical Support [facility] Oncology Services [address] [place] [address] Discharge Disposition: Discharged to home or Selfcare [...] Total Score: 0 04/01/19 20 9:00 AM TRAVELING BUYER documented as of this encounter Care Teams Lehr Cutter Relationship Specialty Start Date End Date Iveth Guzman MD [address] [place] [address] PCP - General Family Medicine 05/02/23 Laurence Luque MD [address] [address] Consulting Physician General Surgery 02/01/15 Clemencia Bennett MD [address] [place] [address] Family Medicine 01/30/18 Sony Mcpherson MD [address] [address] Consulting Physician General Surgery 09/08/23 Jose R Pearson MD [address] [place] [address] Consulting Physician Medical Oncology 10/02/23 documented as of this encounter
--- OUTSIDE RECORDS SUMMARY | 2024-03-15 01:48 | XMS_ITS | Encounter Summary ---
Author Organization [facility] [employer] [facility] Care Team Providers Care Nurse Plastics Name Role Phone Laurence Luque MD Unavailable + [phone] Clemencia Bennett MD Unavailable [phone] Iveth Guzman MD Primary Care Provider + [phone] Sony Mcpherson MD Unavailable [phone] Jose R Pearson MD Unavailable [phone] Encounter Details Date Type Department Care Team (Latest Contact Info) Description 01/06/2024 Travel Social History Tobacco Use Types Packs/Day [...] st Contact Info) Description 03/23/2024 1:00 PM REAL ESTATE UTILIZATION OFFICER [facility] [address] [place] [address] Jose R Pearson MD [address] [place] [address] Discharge Disposition: Discharged to home or Selfcare 03/23/2024 2:30 PM REAL ESTATE UTILIZATION OFFICER Appointment [facility] [address] [place] [address] Jose R Pearson MD [address] [place] [address] Discharge Disposition: Discharged to home or Selfcare 03/30/2024 10:00 AM REAL ESTATE UTILIZATION OFFICER Office Visit [facility] Oncology Services [address] [place] [address] Jose R Pearson MD [address] [place] [address] Discharge Disposition: Discharged to home or Selfcare 03/30/2024 10:30 AM REAL ESTATE UTILIZATION OFFICER Lab [facility] Oncology Services [address] [place] [address] Discharge Disposition: Discharged to home or Selfcare 03/31/2024 1:00 PM REAL ESTATE UTILIZATION OFFICER Clinical Support [facility] Oncology Services [address] [place] [address] Jose R Pearson MD [address] [place] [address] Discharge Disposition: Discharged to home or Selfcare 04/28/2024 1:30 PM REAL ESTATE UTILIZATION OFFICER Clinical Support [facility] Oncology Services [address] [place] [address] Discharge Disposition: Discharged to home or Selfcare documented as of this encounter Goals Goal Patient Goal Type Associated Problems Recent Progress Patient-Stated? Author Exercise 3x per week (30 min per time) Exercise Chica Louis MD documented as of this encounter Visit Diagnoses Not on filedocumented in this encounter Additional Health Concerns Assessment Noted Time PHQ-9 Depression Total Score: 0 04/01/19 20 9:00 AM REAL ESTATE UTILIZATION OFFICER documented as of this encounter Care Teams Nurse Plastics Relationship Specialty Start Date End Date Iveth Guzman MD [address] [place] [address] PCP - General Family Medicine 05/02/23 Laurence Luque MD [address] [address] Consulting Physician General Surgery 02/01/15 Clemencia Bennett MD [address] [place] [address] Family Medicine 01/30/18 Sony Mcpherson MD #[address] [address] Consulting Physician General Surgery 09/08/23 Jose R Pearson MD [address] [place] [address] Consulting Physician Medical Oncology 10/02/23 documented as of this encounter
--- OUTSIDE RECORDS SUMMARY | 2024-03-15 01:48 | XMS_ITS | Encounter Summary ---
Author Organization [facility] [employer] [facility] Care Team Providers Care Outsole Scheduler Name Role Phone Laurence Luque MD Unavailable + [phone] Clemencia Bennett MD Unavailable [phone] Iveth Guzman MD Primary Care Provider + [phone] Sony Mcpherson MD Unavailable [phone] Jose R Pearson MD Unavailable [phone] Encounter Details Date Type Department Care Team (Latest Contact Info) Description 11/05/2023 Travel Social History Tobacco Use Types Packs/Day [...] st Contact Info) Description 03/23/2024 1:00 PM DIRECTOR OF LITIGATION [facility]ment [facility] 1 [place] [address] Jose R Pearson MD 0 [place] [address] Discharge Disposition: Discharged to home or Selfcare 03/23/2024 2:30 PM DIRECTOR OF LITIGATION Appointment [facility] [address] [place] [address] Jose R Pearson MD [address] [place] [address] Discharge Disposition: Discharged to home or Selfcare 03/30/2024 10:00 AM DIRECTOR OF LITIGATION Office Visit [facility] Oncology Services 0 [place] [address] Jose R Pearson MD [address] [place] [address] Discharge Disposition: Discharged to home or Selfcare 03/30/2024 10:30 AM DIRECTOR OF LITIGATION Lab [facility] Oncology Services 0 [place] [address] Discharge Disposition: Discharged to home or Selfcare 03/31/2024 1:00 PM DIRECTOR OF LITIGATION Clinical Support [facility] Oncology Services [address] [place] [address] Jose R Pearson MD 0 [place] [address] Discharge Disposition: Discharged to home or Selfcare 04/28/2024 1:30 PM DIRECTOR OF LITIGATION Clinical Support [facility] Oncology Services [address] [place] [address] Discharge Disposition: Discharged to home or Selfcare documented as of this encounter Goals Goal Patient Goal Type Associated Problems Recent Progress Patient-Stated? Author Exercise 3x per week (30 min per time) Exercise Chica Louis MD documented as of this encounter Visit Diagnoses Not on filedocumented in this encounter Additional Health Concerns Assessment Noted Time PHQ-9 Depression Total Score: 0 04/01/19 20 9:00 AM DIRECTOR OF LITIGATION documented as of this encounter Care Teams Outsole Scheduler Relationship Specialty Start Date End Date Iveth Guzman MD [address] [place] [address] PCP - General Family Medicine 05/02/23 Laurence Luque MD #[address] [address] Consulting Physician General Surgery 02/01/15 Clemencia Bennett MD [address] [place] [address] Family Medicine 01/30/18 Sony Mcpherson MD #[address] [address] Consulting Physician General Surgery 09/08/23 Jose R Pearson MD [address] [place] [address] Consulting Physician Medical Oncology 10/02/23 documented as of this encounter
--- OUTSIDE RECORDS SUMMARY | 2024-03-15 01:48 | XMS_ITS | Encounter Summary ---
Author Organization [facility] Address [address] [place] [place] [address] Phone Care Team Providers Care Air And Missile Defense Crewmember Name Role Phone Laurence Luque MD Unavailable Clemencia Bennett MD Unavailable [phone] Iveth Guzman MD Primary Care Provider [phone] Sony Mcpherson MD Unavailable [phone] Jose R Pearson MD Unavailable [phone] Encounter Details Date Type Department Care Team (Late st Contact Info) Description 11/25/2023 Documentation Only [facility] [address] [place] [address] Iveth Aragon, [place] Social History Tobacco Use Types Packs/Day Years [...] as of this encounter Miscellaneous Notes * Plan of Care - Iveth Aragon PT - 11/25/2023 1:35 PM CDT Discharge Note Reporting Period from Initial Evaluation to 11/25/2023 Angie Reed is a 53 y.o. patient who was treated in Physical Therapy for lymphedema- 2 visits only. Patient is being discharged on today's date - 11/25/2023 by PT. Patient has not demonstrated progress as she was only seen for 2 visits. Plan for patient to be discharged from Physical Therapy at this time. Patient is undergoing chemotherapy at this time . If she needs further physical therapy in the future, we will be happy to resumeit. See goals below for specific status and refer to objective data from most recent visit/progress report and initial evaluation for comparative measures. Goals_ No Goals were achieved as she was only seen for 2 visits. Patient will demonstrate the followin- Reduce LLIS score to 22% impairment to demonstrate reduced impact of swelling and related symptoms on reaching to a high shelf. 2- Reduce volume by 50 ml in the affected limb(s), in order to perform donning/doffing shirt with less difficulty. 3- Patient/caregiver will be independent with donning/doff patient's compression garment. 4- Patient will verbalize signs/symptoms of infection and skin care management to minimize infection risk. 5- Patient/caregiver will be independent in performing self-manual lymphatic drainage, to allow forself-management of edema after discharge. 6- Resolution of fibrosis throughout right chest and arm to promote skin/ tissue integrity. 7- Patient to be assessed for appropriate daytime/ nighttime compression garment upon discharge to allow for self-management of edema after discharge. 8- Patient to demonstrate improved AROM for right shoulder abduction to 180 degrees without pain, to aid in donning/doffing shirt. documented in this encounter Plan of Treatment Upcoming Encounters Date Type Department Care Team (Late st Contact Info) Description 03/23/2024 1:00 PM CATALOGUE LIBRARIAN [facility]ment [facility] 1 [place] [address] Jose R Pearson MD [address] [place] [address] Discharge Disposition: Discharged to home or Selfcare 03/23/2024 2:30 PM CATALOGUE LIBRARIAN Appointment [facility] [address] [place] [address] Jose R Pearson MD [address] [place] [address] Discharge Disposition: Discharged to home or Selfcare 03/30/2024 10:00 AM CATALOGUE LIBRARIAN Office Visit [facility] Oncology Services [address] [place] [address] Jose R Pearson MD [address] [place] [address] Discharge Disposition: Discharged to home or Selfcare 03/30/2024 10:30 AM CATALOGUE LIBRARIAN Lab [facility] Oncology Services [address] [place] [address] Discharge Disposition: Discharged to home or Selfcare 03/31/2024 1:00 PM CATALOGUE LIBRARIAN Clinical Support [facility] Oncology Services [address] [place] [address] Jose R Pearson MD 0 [place] [address] Discharge Disposition: Discharged to home or Selfcare 04/28/2024 1:30 PM CATALOGUE LIBRARIAN Clinical Support [facility] Oncology Services [address] [place] [phone] Discharge Disposition: Discharged to home or Selfcare documented as of this encounter Goals Goal Patient Goal Type Associated Problems Recent Progress Patient-Stated? Author Exercise 3x per week (30 min per time) Exercise Chica Louis MD documented as of this encounter Visit Diagnoses Not on filedocumented in this encounter Additional Health Concerns Assessment Noted Time PHQ-9 Depression Total Score: 0 04/01/19 20 9:00 AM CATALOGUE LIBRARIAN documented as of this encounter Care Teams Air And Missile Defense Crewmember Relationship Specialty Start Date End Date Iveth Guzman MD [address] [place] [address] PCP - General Family Medicine 05/02/23 Laurence Luque MD #[address] [address] Consulting Physician General Surgery 02/01/15 Clemencia Bennett MD [address] [place] [address] Family Medicine 01/30/18 Sony Mcpherson MD #[address] [phone] Consulting Physician General Surgery 09/08/23 Jose R Pearson MD [address] [place] [address] Consulting Physician Medical Oncology 10/02/23 documented as of this encounter
--- OUTSIDE RECORDS SUMMARY | 2024-03-15 01:48 | XMS_ITS | Encounter Summary ---
Author Organization [facility] Address [address] [place] 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) Jose R Pearson MD [address] [place] [address] Phone: tel: fax: [facility] Oncology Services [address] [place] [address] Phone: tel: fax: Referral ID Status Reason Start Date Expiration Date V isits Requested Visits Authorized [id number] Authorized 09/16/2023 1 16 Encounter Details Date Type Department Care Team (Latest Contact Info) Description 12/17/2023 9:00 AM CDT Clinical Support [facility] Oncology Services [address] [place] [address] Jose R Pearson MD [address] [place] [address] Breast cancer metastasized to axillary lymph node, [...] Sign Reading Time Taken Comments Blood Pressure 135/88 12/17/2023 9:00 AM CDT Pulse 62 12/17/2023 9:00 AM CDT Temperature 36.4 ??C (97.6 ??F) 12/17/2023 9:00 AM CD T Respiratory Rate 16 12/17/2023 9:00 AM CDT Oxygen Saturation 100% 12/17/2023 9:00 AM CDT Inhaled Oxygen Concentration - - Weight 64.4 kg (142 lb) 12/17/2023 9:00 AM CDT Height - - Body Mass Index 26.83 12/16/2023 1:03 PM CDT documented in this encounter Miscellaneous Notes * Interdisciplinary - Jenn, Sister Sisi Monroy RN - 12/17/2023 9:00 AM CDT Patient arrived and VS obtained. Port accessed per protocol x1 attempt. Flushed easily with no blood return noted. Per patient, it has not given blood return in a while. No s/s of complications. Medications given as ordered. Patient tolerated well. Port flushed with NS and heparin. Needle removed and site covered with bandaid. Echo scheduled for next week. List of upcoming appointments given to patient. Patient left treatment area in stable condition. documented in this encounter Plan of Treatment Upcoming Encounters Date Type Department Care Team (Late st Contact Info) Description 03/23/2024 1:00 PM SCOWMAN Appointment [facility] Cardiology Services 1 [place] [address] Jose R Pearson MD 0 [place] [address] Discharge Disposition: Discharged to home or Selfcare 03/23/2024 2:30 PM SCOWMAN Appointment [facility] CT [address] [place] [address] Jose R Pearson MD [address] [place] [address] Discharge Disposition: Discharged to home or Selfcare 03/30/2024 10:00 AM SCOWMAN Office Visit [facility] Oncology Services [address] [place] [address] Jose R Pearson MD [address] [place] [address] Discharge Disposition: Discharged to home or Selfcare 03/30/2024 10:30 AM SCOWMAN Lab [facility] Oncology Services [address] [place] [address] Discharge Disposition: Discharged to home or Selfcare 03/31/2024 1:00 PM SCOWMAN Clinical Support [facility] Oncology Services [address] [place] [address] Jose R Pearson MD [address] [place] [address] Discharge Disposition: Discharged to home or Selfcare 04/28/2024 1:30 PM SCOWMAN Clinical Support [facility] Services [address] [place] [address] Discharge Disposition: Discharged to home or Selfcare [...] 50 mL/hr, Intravenous, ONCE, 1 dose, On Fri12/17/23 at 0930, 250mL bagIndications:Breast cancer metastasized to axillary lymph node, right (HCC) New Bag 12/17/2023 9:26 AM CDT 50 mL/h r Heparin Na (Pork) Lock Flsh PF SOLN 30 Units 30 Units, Intravenous, PRN, Starting on Fri12/17/23 at 0857, Until Fri12/17/23 at 1303, Line Care, Line care per [facility].Indications:Breast cancer metastasized to axillary lymph node, right (HCC),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) Given 12/17/2023 10:55 AM CDT 30 Units pertuzumab (PERJETA) 420 mg in sodium chloride 0.9 % 250 mL infusion 420 mg, Intravenous, ONCE, 1 dose, On Fri12/17/23 at 0930, Administer over 30 MinutesIndications:Breast cancer metastasized to axillary lymph node, right (HCC),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 Do not administer with D5W. Do not administer IV push or by rapid bolus. 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) New Bag 12/17/2023 10:15 AM CDT 378 mg documented in this encounter Additional Health Concerns Assessment Noted Time PHQ-9 Depression Total Score: 0 04/01/19 20 9:00 AM SCOWMAN documented as of this encounter Care Teams Conveyancer Relationship Specialty Start Date End Date Iveth Guzman MD [address] [place] [address] PCP - General Family Medicine 05/02/23 Laurence Luque MD #2 [facility] [address] [place] [address] Consulting Physician General Surgery 02/01/15 Clemencia Bennett MD [address] [place] [address] Family Medicine 01/30/18 Sony Mcpherson MD #2 [facility] [address] [place] [address] Consulting Physician General Surgery 09/08/23 Jose R Pearson MD [address] [place] [address] Consulting Physician Medical Oncology 10/02/23 documented as of this encounter
--- OUTSIDE RECORDS SUMMARY | 2024-03-15 01:48 | XMS_ITS | Encounter Summary ---
Author Organization [facility] [employer] [facility] Care Team Providers Care In Processing Instructor Name Role Phone Laurence Lquue MD Unavailable + [phone] Clemencia Bennett MD Unavailable [phone] Iveth Guzman MD Primary Care Provider + [phone] Sony Mcpherson MD Unavailable [phone] Jose R Pearson MD Unavailable [phone] Encounter Details Date Type Department Care Team (Latest Contact Info) Description 12/20/2023 Travel Social History Tobacco Use Types Packs/Day [...] st Contact Info) Description 03/23/2024 1:00 PM CONTESTANT COORDINATOR Appointment [facility] Cardiology Services 1 [place] [address] Jose R Pearson MD 0 [place] [address] Discharge Disposition: Discharged to home or Selfcare 03/23/2024 2:30 PM CONTESTANT COORDINATOR Appointment [facility] CT [address] [place] [address] Jose R Pearson MD [address] [place] [address] Discharge Disposition: Discharged to home or Selfcare 03/30/2024 10:00 AM CONTESTANT COORDINATOR Office Visit [facility] Oncology Services [address] [place] [address] Jose R Pearson MD [address] [place] [address] Discharge Disposition: Discharged to home or Selfcare 03/30/2024 10:30 AM CONTESTANT COORDINATOR Lab [facility] Oncology Services [address] [place] [address] Discharge Disposition: Discharged to home or Selfcare 03/31/2024 1:00 PM CONTESTANT COORDINATOR Clinical Support [facility] Oncology Services [address] [place] [address] Jose R Pearson MD 0 [place] [address] Discharge Disposition: Discharged to home or Selfcare 04/28/2024 1:30 PM CONTESTANT COORDINATOR Clinical Support [facility] Oncology Services [address] [place] [address] Discharge Disposition: Discharged to home or Selfcare documented as of this encounter Goals Goal Patient Goal Type Associated Problems Recent Progress Patient-Stated? Author Exercise 3x per week (30 min per time) Exercise Chica Louis MD documented as of this encounter Visit Diagnoses Not on filedocumented in this encounter Additional Health Concerns Assessment Noted Time PHQ-9 Depression Total Score: 0 04/01/19 20 9:00 AM CONTESTANT COORDINATOR documented as of this encounter Care Teams In Processing Instructor Relationship Specialty Start Date End Date Iveth Guzman MD [address] [place] [address] PCP - General Family Medicine 05/02/23 Laurence Luque MD #[address] [address] Consulting Physician General Surgery 02/01/15 Clemencia Bennett MD [address] [place] [address] Family Medicine 01/30/18 Sony Mcpherson MD #[address] [address] Consulting Physician General Surgery 09/08/23 Jose R Pearson MD [address] [place] [address] Consulting Physician Medical Oncology 10/02/23 documented as of this encounter
--- OUTSIDE RECORDS SUMMARY | 2024-03-15 01:48 | XMS_ITS | Encounter Summary ---
Author Organization [facility] Address [address] 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 Services [address] [place] [address] Phone: tel: fax: Referral ID Status Reason Start Date Expiration Date V isits Requested Visits Authorized [id number] Authorized 09/16/2023 1 16 Encounter Details Date Type Department Care Team (Latest Contact Info) Description 11/06/2023 2:00 PM CDT Clinical Support [facility] Services [address] [place] [address] Jose R Pearson MD [address] [place] [address] Breast cancer metastasized to axillary lymph node, [...] Sign Reading Time Taken Comments Blood Pressure 151/86 11/06/2023 1:56 PM CDT Pulse 58 11/06/2023 1:56 PM CDT Temperature 36.7 ??C (98.1 ??F) 11/06/2023 1:56 PM CD T Respiratory Rate 16 11/06/2023 1:56 PM CDT Oxygen Saturation 98% 11/06/2023 1:56 PM CDT Inhaled Oxygen Concentration - - Weight - - Height - - Body Mass Index - - documented in this encounter Miscellaneous Notes * Interdisciplinary - Naima Chong RN - 11/06/2023 2:00 PM CDT Pt ambulated back to treatment chair. Vitals obtained. Discussed plan of care for the day and educated on medication, verbalized understanding. Pt medicated per orders, tolerated well, bandiad placed. Pt ambulated out of treatment room in stable condition. documented in this encounter Plan of Treatment Upcoming Encounters Date Type Department Care Team (Late st Contact Info) Description 03/23/2024 1:00 PM SCHOOL ATHLETIC DIRECTOR Appointment [facility] Cardiology Services [address] [place] [address] Jose R Pearson MD [address] [place] [address] Discharge Disposition: Discharged to home or Selfcare 03/23/2024 2:30 PM SCHOOL ATHLETIC DIRECTOR Appointment [facility] CT 1 [facility] [place] [address] Jose R Pearson MD [address] [place] [address] Discharge Disposition: Discharged to home or Selfcare 03/30/2024 10:00 AM SCHOOL ATHLETIC DIRECTOR [facility] [address] [place] [address] Jose R Pearson MD [address] [place] [address] Discharge Disposition: Discharged to home or Selfcare 03/30/2024 10:30 AM SCHOOL ATHLETIC DIRECTOR Lab [facility] Oncology Services [address] [place] [address] Discharge Disposition: Discharged to home or Selfcare 03/31/2024 1:00 PM SCHOOL ATHLETIC DIRECTOR Clinical Support [facility] Oncology Services [address] [place] [address] Jose R Pearson MD [address] [place] [address] Discharge Disposition: Discharged to home or Selfcare 04/28/2024 1:30 PM SCHOOL ATHLETIC DIRECTOR Clinical Support [facility] Oncology Services [address] [place] [address] Discharge Disposition: Discharged to home or Selfcare [...] mg, Subcutaneous, ONCE, 1 dose, On Lizzie 11/06/23 at 1330Indications:Breast cancer metastasized to axillary lymph node, right (HCC),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) Given 11/06/2023 1:58 PM CDT 6 mg Left Lateral Upper Arm documented in this encounter Additional Health Concerns Assessment Noted Time PHQ-9 Depression Total Score: 0 04/01/19 20 9:00 AM SCHOOL ATHLETIC DIRECTOR documented as of this encounter Care Teams Farm Management Supervisor Relationship Specialty Start Date End Date Iveth Guzman MD [address] [place] [address] PCP - General Family Medicine 05/02/23 Laurence Luque MD #[address] [address] Consulting Physician General Surgery 02/01/15 Clemencia Bennett MD [address] [place] [address] Family Medicine 01/30/18 Sony Mcpherson MD #[address] [address] Consulting Physician General Surgery 09/08/23 Jose R Pearson MD [address] [place] [address] Consulting Physician Medical Oncology 10/02/23 documented as of this encounter
--- OUTSIDE RECORDS SUMMARY | 2024-03-15 01:48 | XMS_ITS | Encounter Summary ---
Author Organization [facility] Address [address] [place] 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) Jose R Pearson MD [address] [place] [address] Phone: tel: fax: [facility] [address] [place] [address] Phone: tel: fax: Referral ID Status Reason Start Date Expiration Date V isits Requested Visits Authorized [id number] Authorized 09/16/2023 1 16 Encounter Details Date Type Department Care Team (Latest Contact Info) Description 01/07/2024 1:00 PM CDT Clinical Support [facility] [address] [place] [address] Jose R Pearson MD [address] [place] [address] Breast cancer metastasized to axillary lymph node, [...] Sign Reading Time Taken Comments Blood Pressure 129/83 01/07/2024 1:00 PM CDT Pulse 60 01/07/2024 1:00 PM CDT Temperature 36.3 ??C (97.3 ??F) 01/07/2024 1:00 PM CD T Respiratory Rate 16 01/07/2024 1:00 PM CDT Oxygen Saturation 100% 01/07/2024 1:00 PM CDT Inhaled Oxygen Concentration - - Weight - - Height - - Body Mass Index - - documented in this encounter Progress Notes * Mishel Strickland, RN - 01/07/2024 1:00 PM CDT Patient arrive to Infusion. Port accessed per protocol with no blood return, flushed easily. See flowsheet. Patient comfortable. Labs/orders assessed/verified per MD. Chemo/all medicaions given as ordered. Patient tolerated well. Port flushed/deaccessed per protocol. Bandaid applied. Patient tolerated well. AVS declined. Patient discharged aware of next appointment. documented in this encounter Plan of Treatment Upcoming Encounters Date Type Department Care Team (Late st Contact Info) Description 03/23/2024 1:00 PM MARRIAGE COUNSELOR MINISTER Appointment [facility] Cardiology Services [address] [place] [address] Jose R Pearson MD [address] [place] [address] Discharge Disposition: Discharged to home or Selfcare 03/23/2024 2:30 PM MARRIAGE COUNSELOR MINISTER Appointment [facility] CT [address] [place] [address] Jose R Pearosn MD [address] [place] [address] Discharge Disposition: Discharged to home or Selfcare 03/30/2024 10:00 AM MARRIAGE COUNSELOR MINISTER Office Visit [facility] Oncology Services [address] [place] [address] Jose R Pearson MD [address] [place] [address] Discharge Disposition: Discharged to home or Selfcare 03/30/2024 10:30 AM MARRIAGE COUNSELOR MINISTER Lab [facility] Oncology Services [address] [place] [address] Discharge Disposition: Discharged to home or Selfcare 03/31/2024 1:00 PM MARRIAGE COUNSELOR MINISTER Clinical Support [facility] Oncology Services [address] [place] [address] Jose R Pearson MD [address] [place] [address] Discharge Disposition: Discharged to home or Selfcare 04/28/2024 1:30 PM MARRIAGE COUNSELOR MINISTER Clinical Support [facility] [address] [place] [address] Discharge Disposition: Discharged to home or Selfcare [...] Site 0.9 % sodium chloride solution at 75 mL/hr, Intravenous, ONCE, 1 dose, On Fri01/07/24 at 1330, Flush fluidIndications:Breast cancer metastasized to axillary lymph node, right (HCC),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) New Bag 01/07/2024 1:20 PM CDT 75 mL/hr Heparin Na (Pork) Lock Flsh PF SOLN 50 Units 50 Units, Intravenous, PRN, Starting on Fri01/07/24 at 1259, Until Fri01/07/24 at 1724, Line Care, Line care per [employer] Flush Grid.Indications:Breast cancer metastasized to axillary lymph node, right (HCC),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 64.4 kg Order-specific weight), Intravenous, ONCE, 1 dose, On Fri01/07/24 at 1330, Administered by IV infusion; loading doses are infused over 90 minutes; maintenance doses may be infused over 30 minutes if tolerated. Do not administer with D5W. Do not administer IV push or by rapid bolus. 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 [address] PCP - General Family Medicine 05/02/23 Laurence Luque MD [address] [address] Consulting Physician General Surgery 02/01/15 Clemencia Bennett MD [address] [place] [address] Family Medicine 01/30/18 Sony Mcpherson MD [address] [address] Consulting Physician General Surgery 09/08/23 Jose R Pearson MD [address] [place] [address] Consulting Physician Medical Oncology 10/02/23 documented as of this encounter
--- OUTSIDE RECORDS SUMMARY | 2024-03-15 01:48 | XMS_ITS | Encounter Summary ---
Author Organization [facility] [employer] [facility] Care Team Providers Care Bottom Ironer Name Role Phone Laurence Luque MD Unavailable + [phone] Clemencia Bennett MD Unavailable [phone] Iveth Guzman MD Primary Care Provider + [phone] Sony Mcpherson MD Unavailable [phone] Jose R Pearson MD Unavailable [phone] Encounter Details Date Type Department Care Team (Latest Contact Info) Description 11/27/2023 Travel Social History Tobacco Use Types Packs/Day [...] st Contact Info) Description 03/23/2024 1:00 PM NUTRITIONALIST [facility]ointment [facility] [address] [place] [address] Jose R Pearson MD 0 [place] [address] Discharge Disposition: Discharged to home or Selfcare 03/23/2024 2:30 PM NUTRITIONALIST Appointment [facility] [address] [place] [address] Jose R Pearson MD [address] [place] [address] Discharge Disposition: Discharged to home or Selfcare 03/30/2024 10:00 AM NUTRITIONALIST Office Visit [facility] Oncology Services [address] [place] [address] Jose R Pearson MD [address] [place] [address] Discharge Disposition: Discharged to home or Selfcare 03/30/2024 10:[address] [facility] Oncology Services [address] [place] [address] Discharge Disposition: Discharged to home or Selfcare 03/31/2024 1:00 PM NUTRITIONALIST Clinical Support [facility] Oncology Services [address] [place] [address] Jose R Pearson MD [address] [place] [address] Discharge Disposition: Discharged to home or Selfcare 04/28/2024 1:30 PM NUTRITIONALIST Clinical Support [facility] Oncology Services [address] [place] [address] Discharge Disposition: Discharged to home or Selfcare documented as of this encounter Goals Goal Patient Goal Type Associated Problems Recent Progress Patient-Stated? Author Exercise 3x per week (30 min per time) Exercise Chica Louis MD documented as of this encounter Visit Diagnoses Not on filedocumented in this encounter Additional Health Concerns Assessment Noted Time PHQ-9 Depression Total Score: 0 04/01/19 20 9:00 AM NUTRITIONALIST documented as of this encounter Care Teams Bottom Ironer Relationship Specialty Start Date End Date Iveth Guzman MD [address] [place] [address] PCP - General Family Medicine 05/02/23 Laurence Luque MD [address] [address] Consulting Physician General Surgery 02/01/15 Clemencia Bennett MD [address] [place] [address] Family Medicine 01/30/18 Sony Mcpherson MD [address] [address] Consulting Physician General Surgery 09/08/23 Jose R Pearson MD [address] [place] [address] Consulting Physician Medical Oncology 10/02/23 documented as of this encounter
--- OUTSIDE RECORDS SUMMARY | 2024-03-15 01:48 | XMS_ITS | Encounter Summary ---
Author Organization [facility] Address [address] [place] 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 [address] [place] [address] Phone: tel: fax: Referral ID Status Reason Start Date Expiration Date V isits Requested Visits Authorized [id number] Authorized 09/16/2023 1 16 Encounter Details Date Type Department Care Team (Latest Contact Info) Description 11/05/2023 10:00 AM CDT [facility] [address] [place] [address] Jose R Pearson MD [address] [place] [address] Breast cancer metastasized to axillary lymph node, [...] * Interdisciplinary - Francy Campos RN - 11/05/2023 10:00 AM CDT Pt ambulated into treatment room in stable condition. Vitals obtained. Port accessed per protocol. Flushed with ease and blood return not noted. Per MD, ok to continue with treatment. Medications intended effects and side effects reviewed with pt. Pt medicated per MD orders. Pt tolerated well. Portflushed and needle removed. Band aid placed. Pt discharged in stable condition. documented in this encounter Plan of Treatment Upcoming Encounters Date Type Department Care Team (Late st Contact Info) Description 03/23/2024 1:00 PM REPATCHER Appointment [facility] Cardiology Services [address] [place] [address] Jose R Pearson MD [address] [place] [address] Discharge Disposition: Discharged to home or Selfcare 03/23/2024 2:30 PM REPATCHER Appointment [facility] [address] [place] [address] Jose R Pearson MD [address] [place] [address] Discharge Disposition: Discharged to home or Selfcare 03/30/2024 10:00 AM REPATCHER Office Visit [facility] Oncology Services [address] [place] [address] Jose R Pearson MD [address] [place] [address] Discharge Disposition: Discharged to home or Selfcare 03/30/2024 10:30 AM REPATCHER Lab [facility] Oncology Services [address] [place] [address] Discharge Disposition: Discharged to home or Selfcare 03/31/2024 1:00 PM REPATCHER Clinical Support [facility] Oncology Services [address] [place] [address] Jose R Pearson MD [address] [place] [address] Discharge Disposition: Discharged to home or Selfcare 04/28/2024 1:30 PM REPATCHER Clinical Support [facility] Oncology Services [address] [place] [address] Discharge Disposition: Discharged to home or Selfcare [...] sodium chloride solution at 75 mL/hr, Intravenous, CONTINUOUS, Starting on Fri11/05/23 at 1030, Until Fri11/05/23 at 1627Indications:Breast cancer metastasized to axillary lymph node, right (HCC) New Bag 11/05/2023 10:02 AM CDT 75 mL/hr CARBOplatin 348.5 mg in sodium chloride 0.9 % 250 mL chemo infusion 348.5 mg (Target AUC = 5), Intravenous, ONCE, 1 dose, On Fri11/05/23 at 1030, Administer over 30 MinutesIndications:Breast cancer metastasized to axillary lymph node, right (HCC),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 1.77 m2 Treatment Plan BSA from Recorded weight), Intravenous, ONCE, 1 dose, On Fri11/05/23 at 1030, Administer over 60 Minutes, Should be dispensed in either glass or non-PVC containers (eg, ExcelT/PABT). 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) New Bag 11/05/2023 10:13 AM CDT 150 mg Heparin Na (Pork) Lock Flsh PF SOLN 50 Units 50 Units, Intravenous, PRN, Starting on Fri11/05/23 at 0948, Until Fri11/05/23 at 1627, Line Care, Line care per [employer] Flush Grid.Indications:Breast cancer metastasized to axillary lymph node, right (HCC),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) Given 11/05/2023 1:50 PM CDT 50 Units OLANZapine (ZYPREXA) tablet 5 mg 5 mg, Oral, ONCE, 1 dose, On Fri11/05/23 at 1030Indications:Breast cancer metastasized to axillary lymph node, right (HCC),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) Given 11/05/2023 10:03 AM CDT 5 mg ondansetron (ZOFRAN) injection 8 mg 8 mg, Intravenous, ONCE, 1 dose, On Fri11/05/23 at 1030Indications:Breast cancer metastasized to axillary lymph node, right (HCC),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 73 kg Treatment plan Recorded weight), Intravenous, ONCE, 1 dose, On Fri11/05/23 at 1030, Administered by IV infusion; loading doses are infused over 90 minutes; maintenance doses may be infused over 30 minutes if tolerated. Do not administer with D5W. Do not administer IV push or by rapid bolus. 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) New Bag 11/05/2023 11:40 AM CDT 441 mg documented in this encounter Additional Health Concerns Assessment Noted Time PHQ-9 Depression Total Score: 0 04/01/19 20 9:00 AM REPATCHER documented as of this encounter Care Teams Lathe Hand Relationship Specialty Start Date End Date Iveth Guzman MD [address] [place] [address] PCP - General Family Medicine 05/02/23 Laurence Luque MD [address] [address] Consulting Physician General Surgery 02/01/15 Clemencia Bennett MD [address] [place] [address] Family Medicine 01/30/18 Sony Mcpherson MD #[address] [address] Consulting Physician General Surgery 09/08/23 Jose R Pearson MD [address] [place] [address] Consulting Physician Medical Oncology 10/02/23 documented as of this encounter
--- OUTSIDE RECORDS SUMMARY | 2024-03-15 01:48 | XMS_ITS | Encounter Summary ---
Author Organization [facility] Care Team Providers Care Coal Deliverer Name Role Phone Laurence Luque MD Unavailable + [phone] Clemencia Bennett MD Unavailable [phone] Iveth Guzman MD Primary Care Provider + [phone] Sony Mcpherson MD Unavailable [phone] Jose R Pearson MD Unavailable [phone] Encounter Details Date Type Department Care Team (Latest Contact Info) Description 12/24/2023 Travel Social History Tobacco Use Types Packs/Day [...] st Contact Info) Description 03/23/2024 1:00 PM MOBILE SERVICE RV TECHNICIAN [facility] [address] [place] [address] Jose R Pearson MD 0 [place] [address] Discharge Disposition: Discharged to home or Selfcare 03/23/2024 2:30 PM MOBILE SERVICE RV TECHNICIAN Appointment [facility] CT [address] [place] [address] Jose R Pearson MD [address] [place] [address] Discharge Disposition: Discharged to home or Selfcare 03/30/2024 10:00 AM MOBILE SERVICE RV TECHNICIAN Office Visit [facility] Oncology Services [address] [place] [address] Jose R Pearson MD [address] [place] [address] Discharge Disposition: Discharged to home or Selfcare 03/30/2024 10:30 AM MOBILE SERVICE RV TECHNICIAN Lab [facility] Oncology Services [address] [place] [address] Discharge Disposition: Discharged to home or Selfcare 03/31/2024 1:00 PM MOBILE SERVICE RV TECHNICIAN Clinical Support [facility] Oncology Services [address] [place] [address] Jose R Pearson MD [address] [place] [address] Discharge Disposition: Discharged to home or Selfcare 04/28/2024 1:30 PM MOBILE SERVICE RV TECHNICIAN Clinical Support [facility] Oncology Services [address] [place] [address] Discharge Disposition: Discharged to home or Selfcare documented as of this encounter Goals Goal Patient Goal Type Associated Problems Recent Progress Patient-Stated? Author Exercise 3x per week (30 min per time) Exercise Chica Louis MD documented as of this encounter Visit Diagnoses Not on filedocumented in this encounter Additional Health Concerns Assessment Noted Time PHQ-9 Depression Total Score: 0 04/01/19 20 9:00 AM MOBILE SERVICE RV TECHNICIAN documented as of this encounter Care Teams Coal Deliverer Relationship Specialty Start Date End Date Iveth Guzman MD [address] [place] [address] PCP - General Family Medicine 05/02/23 Laurence Luque MD [address] [address] Consulting Physician General Surgery 02/01/15 Clemencia Bennett MD [address] [place] [address] Family Medicine 01/30/18 Sony Mcpherson MD #[address] [address] Consulting Physician General Surgery 09/08/23 Jose R Pearson MD [address] [place] [address] Consulting Physician Medical Oncology 10/02/23 documented as of this encounter
--- OUTSIDE RECORDS SUMMARY | 2024-03-15 01:48 | XMS_ITS | Encounter Summary ---
Author Organization [facility] [employer] [facility] Care Team Providers Care Nurse Specialist Name Role Phone Laurence Luque MD Unavailable + [phone] Clemencia Bennett MD Unavailable [phone] Iveth Guzman MD Primary Care Provider + [phone] Sony Mcpherson MD Unavailable [phone] Jose R Pearson MD Unavailable [phone] Encounter Details Date Type Department Care Team (Latest Contact Info) Description 10/14/2023 Travel Social History Tobacco Use Types Packs/Day [...] st Contact Info) Description 03/23/2024 1:00 PM CITY SURVEYOR [facility] [address] [place] [address] Jose R Pearson MD [address] [place] [address] Discharge Disposition: Discharged to home or Selfcare 03/23/2024 2:30 PM CITY SURVEYOR Appointment [facility] [address] [place] [address] Jose R Pearson MD [address] [place] [address] Discharge Disposition: Discharged to home or Selfcare 03/30/2024 10:00 AM CITY SURVEYOR Office Visit [facility] Oncology Services [address] [place] [address] Jose R Pearson MD [address] [place] [address] Discharge Disposition: Discharged to home or Selfcare 03/30/2024 10:30 AM CITY SURVEYOR Lab [facility] Oncology Services [address] [place] [address] Discharge Disposition: Discharged to home or Selfcare 03/31/2024 1:00 PM CITY SURVEYOR Clinical Support [facility] Oncology Services [address] [place] [address] Jose R Pearson MD [address] [place] [address] Discharge Disposition: Discharged to home or Selfcare 04/28/2024 1:30 PM CITY SURVEYOR Clinical Support [facility] Oncology Services [address] [place] [address] Discharge Disposition: Discharged to home or Selfcare documented as of this encounter Goals Goal Patient Goal Type Associated Problems Recent Progress Patient-Stated? Author Exercise 3x per week (30 min per time) Exercise Chica Louis MD documented as of this encounter Visit Diagnoses Not on filedocumented in this encounter Additional Health Concerns Assessment Noted Time PHQ-9 Depression Total Score: 0 04/01/19 20 9:00 AM CITY SURVEYOR documented as of this encounter Care Teams Nurse Specialist Relationship Specialty Start Date End Date Iveth Guzman MD [address] [place] [address] PCP - General Family Medicine 05/02/23 Laurence Luque MD #[address] [address] Consulting Physician General Surgery 02/01/15 Clemencia Bennett MD [address] [place] [address] Family Medicine 01/30/18 Sony Mcpherson MD #[address] [address] Consulting Physician General Surgery 09/08/23 Jose R Pearson MD [address] [place] [address] Consulting Physician Medical Oncology 10/02/23 documented as of this encounter
--- OUTSIDE RECORDS SUMMARY | 2024-03-15 01:48 | XMS_ITS | Encounter Summary ---
Author Organization [facility] [employer] [facility] Care Team Providers Care Technical Documentation Specialist Name Role Phone Laurence Luque MD Unavailable + [phone] Clemencia Bennett MD Unavailable [phone] Iveth Guzman MD Primary Care Provider + [phone] Sony Mcpherson MD Unavailable [phone] Jose R Pearson MD Unavailable [phone] Encounter Details Date Type Department Care Team (Latest Contact Info) Description 10/15/2023 Travel Social History Tobacco Use Types Packs/Day [...] st Contact Info) Description 03/23/2024 1:00 PM AUTOCAD DETAILER [facility] 1 [place] [address] Jose R Pearson MD 0 [place] [address] Discharge Disposition: Discharged to home or Selfcare 03/23/2024 2:30 PM AUTOCAD DETAILER Appointment [facility] [address] [place] [address] Jose R Pearson MD [address] [place] [address] Discharge Disposition: Discharged to home or Selfcare 03/30/2024 10:00 AM AUTOCAD DETAILER Office Visit [facility] Oncology Services 0 [place] [address] Jose R Pearson MD [address] [place] [address] Discharge Disposition: Discharged to home or Selfcare 03/30/2024 10:30 AM AUTOCAD DETAILER Lab [facility] Oncology Services 0 [place] [phone] Discharge Disposition: Discharged to home or Selfcare 03/31/2024 1:00 PM AUTOCAD DETAILER Clinical Support [facility] Oncology Services [address] [place] [address] Jose R Pearson MD 0 [place] [address] Discharge Disposition: Discharged to home or Selfcare 04/28/2024 1:30 PM AUTOCAD DETAILER Clinical Support [facility] Oncology Services [address] [place] [address] Discharge Disposition: Discharged to home or Selfcare documented as of this encounter Goals Goal Patient Goal Type Associated Problems Recent Progress Patient-Stated? Author Exercise 3x per week (30 min per time) Exercise Chica Louis MD documented as of this encounter Visit Diagnoses Not on filedocumented in this encounter Additional Health Concerns Assessment Noted Time PHQ-9 Depression Total Score: 0 04/01/19 20 9:00 AM AUTOCAD DETAILER documented as of this encounter Care Teams Technical Documentation Specialist Relationship Specialty Start Date End Date Iveth Guzman MD [address] [place] [address] PCP - General Family Medicine 05/02/23 Laurence Luque MD [address] [address] Consulting Physician General Surgery 02/01/15 Clemencia Bennett MD [address] [place] [address] Family Medicine 01/30/18 Sony Mcpherson MD [address] [address] Consulting Physician General Surgery 09/08/23 Jose R Pearson MD [address] [place] [address] Consulting Physician Medical Oncology 10/02/23 documented as of this encounter
--- OUTSIDE RECORDS SUMMARY | 2024-03-15 01:48 | XMS_ITS | Encounter Summary ---
Author Organization [facility] Address [address] [place] [address] Phone Care Team Providers Care Associate Programmer Name Role Phone Laurence Luque MD Unavailable Clemencia Bennett MD Unavailable [phone] Iveth Guzman MD Primary Care Provider [phone] Sony Mcpherson MD Unavailable [phone] Jose R Pearson MD Unavailable [phone] Reason for Visit * Reason Comments Medication Refill Encounter Details Date Type Department Care Team (Late st Contact Info) Description 10/30/2023 Refill [facility] - Primary Care - Danny [address] [place] [address] Iveth Guzman MD [address] [place] [address] Medication Refill Social History Tobacco [...] encounter Miscellaneous Notes * Telephone Encounter - Jamie Figueroa RN - 10/30/2023 1:13 PM CDT Medication failed the protocol, provider to review and approve the medication order if appropriate. Requested Prescriptions Pending Prescriptions Disp Refills atorvastatin (LIPITOR) 10 MG Tablet [Pharmacy Med Name: Atorvastatin Calcium 10 MG Oral Tablet] 90 Tablet 0 Sig: Take 1 tablet by mouth once daily Hmg CoA Reductase Inhibitors Protocol Failed - 10/30/2023 12:36 PM Failed - Lipid panel in past [...] Dept 05/02/23 Office Visit Iveth Guzman MD [facility] Showing recent visits within past 365 days and meeting all other requirements Future Appointments No visits were found meeting these conditions. Showing future appointments within next 90 days and meeting all other requirements Passed - No active on record Passed - CMP in past 12 months SODIUM Date Value Ref Range Status 10/14/2023 140 136 - 145 mmol/L Final POTASSIUM Date Value Ref Range Status 10/14/2023 4.0 3.5 - 5.1 mmol/L Final CHLORIDE Date Value Ref Range Status 10/14/2023 107 98 - 107 mmol/L Final CO2, VENOUS Date Value Ref Range Status 10/14/2023 22 22 - 30 mmol/L Final ANION GAP Date Value Ref Range Status 10/14/2023 15.0 <18.0 mmol/L Final GLUCOSE Date Value Ref Range Status 10/14/2023 194 (H) 70 - 99 mg/dL Final BUN Date Value Ref Range Status 10/14/2023 12 10 - 20 mg/dL Final CREATININE, BLOOD Date Value Ref Range Status 10/14/2023 0.78 0.60 - 1.00 mg/dL Final BUN/CREATININE RATIO Date Value Ref Range Status 10/14/2023 15 12 - 20 ratio Final TOTAL PROTEIN Date Value Ref Range Status 10/14/2023 6.6 6.3 - 8.2 g/dL Final ALBUMIN Date Value Ref Range Status 10/14/2023 4.1 3.5 - 5.0 g/dL Final A/G RATIO Date Value Ref Range Status 10/14/2023 1.6 1.0 - 2.2 Final CALCIUM Date Value Ref Range Status 10/14/2023 9.6 8.7 - 10.5 mg/dL Final T BILI Date Value Ref Range Status 10/14/2023 0.5 0.2 - 1.2 mg/dL Final SGOT (AST) Date Value Ref Range Status 10/14/2023 31 5 - 34 U/L Final SGPT (ALT) Date Value Ref Range Status 10/14/2023 44 0 - 55 U/L Final ALKALINE PHOSPHATASE Date Value Ref Range Status 10/14/2023 99 40 - 150 U/L Final GFR, EST. NONAFRICAN Date Value Ref Range Status 10/14/2023 >60 >=60 Final GFR, EST. Date Value Ref Range Status 10/14/2023 >60 >=60 Final GFR, ESTIMATED Date Value Ref Range Status 10/14/2023 >60 >=60 Final Comment: Creatinine Clearance is the preferred criteria for selecting drug dose adjustments in renally impaired patients. The GFR is provided as additional pertinent clinical information. GFR is reported in mL/min/1.73 sq m. Calculation based on the Chronic Kidney Disease Epidemiology Collaboration (CKD- EPI) equation refitwithout adjustment for race. IS THE PATIENT REQUIRED TO BE FASTING? Date Value Ref Range Status 10/14/2023 No Final Signed Prescriptions Disp Refills metoprolol tartrate (LOPRESSOR) 25 MG Tablet 180 Tablet 0 Sig: Take 1 tablet by mouth twice daily Beta-Blockers Protocol Passed - 10/30/2023 12:36 PM Passed - BP on record in the past year Clinician-entered: BP Readings from Last 3 Encounters: 10/16/23 149/80 10/15/23 130/83 10/02/23 118/80 Patient-entered: No data recorded Passed - Visit with relevant provider in past 12 months or upcoming 90 days Recent Visits Date Type Provider Dept 05/02/23 Office Visit [facility] Show[facility] recent visits within past 365 days and meeting all other requirements Future Appointments No visits were found meeting these conditions. Showing future appointments within next 90 days and meeting all other requirements documented in this encounter Plan of Treatment Upcoming Encounters Date Type Department Care Team (Late st Contact Info) Description 03/23/2024 1:00 PM MANAGER FOREIGN Appointment [facility] Cardiology Services 1 [place] [address] Jose R Pearson MD [address] [place] [address] Discharge Disposition: Discharged to home or Selfcare 03/23/2024 2:30 PM MANAGER FOREIGN [facility] [address] [place] [address] Jose R Pearson MD [address] [place] [address] Discharge Disposition: Discharged to home or Selfcare 03/30/2024 10:00 AM MANAGER FOREIGN Office Visit [facility] Oncology Services [address] [place] [address] Jose R Pearson MD [address] [place] [address] Discharge Disposition: Discharged to home or Selfcare 03/30/2024 10:30 AM MANAGER FOREIGN Lab [facility] Oncology Services [address] [place] [address] Discharge Disposition: Discharged to home or Selfcare 03/31/2024 1:00 PM MANAGER FOREIGN Clinical Support [facility] Oncology Services [address] [place] [address] Jose R Pearson MD [address] [place] [address] Discharge Disposition: Discharged to home or Selfcare 04/28/2024 1:30 PM MANAGER FOREIGN Clinical Support [facility] Oncology Services [address] [place] [address] Discharge Disposition: Discharged to home or Selfcare documented as of this encounter Goals Goal Patient Goal Type Associated Problems Recent Progress Patient-Stated? Author Exercise 3x per week (30 min per time) Exercise No Chica Saldana MD documented as of this encounter Visit Diagnoses Diagnosis Hyperlipidemia, unspecified hyperlipidemia type Essential hypertension Unspecified essential hypertension documented in this encounter Additional Health Concerns Assessment Noted Time PHQ-9 Depression Total Score: 0 04/01/19 20 9:00 AM MANAGER FOREIGN documented as of this encounter Care Teams Associate Programmer Relationship Specialty Start Date End Date Iveth Guzman MD [address] [place] [address] PCP - General Family Medicine 05/02/23 Laurence Luque MD #[address] [phone] Consulting Physician General Surgery 02/01/15 Clemencia Bennett MD [address] [place] [address] Family Medicine 01/30/18 Sony Mcpherson MD #[address] [address] Consulting Physician General Surgery 09/08/23 Jose R Pearson MD [address] [place] [address] Consulting Physician Medical Oncology 10/02/23 documented as of this encounter
--- OUTSIDE RECORDS SUMMARY | 2024-03-15 01:48 | XMS_ITS | Encounter Summary ---
Author Organization [facility] Address [address] 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) Jose R Pearson MD [address] [place] [address] Phone: tel: fax: [facility] Oncology Services [address] [place] [address] Phone: tel: fax: Referral ID Status Reason Start Date Expiration Date V isits Requested Visits Authorized [id number] Authorized 09/16/2023 1 16 Encounter Details Date Type Department Care Team (Latest Contact Info) Description 10/16/2023 2:00 PM CDT Clinical Support [facility] Oncology Services [address] [place] [address] Jose R Pearson MD [address] [place] [address] Breast cancer metastasized to axillary lymph node, [...] Sign Reading Time Taken Comments Blood Pressure 149/80 10/16/2023 2:00 PM CDT Pulse 52 10/16/2023 2:00 PM CDT Temperature 35.8 ??C (96.5 ??F) 10/16/2023 2:00 PM CD T Respiratory Rate 16 10/16/2023 2:00 PM CDT Oxygen Saturation 98% 10/16/2023 2:00 PM CDT Inhaled Oxygen Concentration - - Weight - - Height - - Body Mass Index - - documented in this encounter Miscellaneous Notes * Interdisciplinary - Sister Sisi Barajas RN - 10/16/2023 2:00 PM CDT Patient arrived and VS obtained. Medication given as ordered. Patient tolerated well. Patient left treatment area in stable condition. documented in this encounter Plan of Treatment Upcoming Encounters Date Type Department Care Team (Late st Contact Info) Description 03/23/2024 1:00 PM CABLE TESTER Appointment [facility] Cardiology Services [address] [place] [address] Jose R Pearson MD [address] [place] [address] Discharge Disposition: Discharged to home or Selfcare 03/23/2024 2:30 PM CABLE TESTER Appointment [facility] [address] [place] [address] Jose R Pearson MD [address] [place] [address] Discharge Disposition: Discharged to home or Selfcare 03/30/2024 10:00 AM CABLE TESTER Office Visit [facility] Oncology Services [address] [place] [address] Jose R Pearson MD [address] [place] [address] Discharge Disposition: Discharged to home or Selfcare 03/30/2024 10:30 AM CABLE TESTER Lab [facility] Oncology Services [address] [place] [address] Discharge Disposition: Discharged to home or Selfcare 03/31/2024 1:00 PM CABLE TESTER Clinical Support [facility] Oncology Services [address] [place] [address] Jose R Pearson MD [address] [place] [address] Discharge Disposition: Discharged to home or Selfcare 04/28/2024 1:30 PM CABLE TESTER Clinical Support [facility] Oncology Services [address] [place] [address] Discharge Disposition: Discharged to home or Selfcare [...] mg, Subcutaneous, ONCE, 1 dose, On Lizzie 10/16/23 at 1430Indications:Breast cancer metastasized to axillary lymph node, right (HCC),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) Given 10/16/2023 2:08 PM CDT 6 mg Left Lateral Upper Arm documented in this encounter Additional Health Concerns Assessment Noted Time PHQ-9 Depression Total Score: 0 04/01/19 20 9:00 AM CABLE TESTER documented as of this encounter Care Teams Career Based Intervention Coordinator Relationship Specialty Start Date End Date Iveth Guzman MD [address] [place] [address] PCP - General Family Medicine 05/02/23 Laurence Luque MD #[address] [phone] Consulting Physician General Surgery 02/01/15 Clemencia Bennett MD [address] [place] [address] Family Medicine 01/30/18 Sony Mcpherson MD #[address] [phone] Consulting Physician General Surgery 09/08/23 Jose R Pearson MD [address] [place] [address] Consulting Physician Medical Oncology 10/02/23 documented as of this encounter
--- OUTSIDE RECORDS SUMMARY | 2024-03-15 01:48 | XMS_ITS | Encounter Summary ---
Author Organization [facility] Address [address] 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) Jose R Pearson MD [address] [place] [address] Phone: tel: fax: [facility] Oncology Services [address] [place] [address] Phone: tel: fax: Referral ID Status Reason Start Date Expiration Date V isits Requested Visits Authorized [id number] Authorized 10/15/2023 1 8 Encounter Details Date Type Department Care Team (Latest Contact Info) Description 12/24/2023 1:00 PM CDT Clinical Support [facility] Oncology Services [address] [place] [address] Jose R Pearson MD [address] [place] [address] Breast cancer metastasized to axillary lymph node, [...] Sign Reading Time Taken Comments Blood Pressure 132/83 12/24/2023 1:13 PM CDT Pulse 66 12/24/2023 1:13 PM CDT Temperature 36.5 ??C (97.7 ??F) 12/24/2023 1:13 PM CD T Respiratory Rate 16 12/24/2023 1:13 PM CDT Oxygen Saturation 100% 12/24/2023 1:13 PM CDT Inhaled Oxygen Concentration - - Weight - - Height - - Body Mass Index - - documented in this encounter Miscellaneous Notes * Interdisciplinary - Justen Godoy RN - 12/24/2023 1:00 PM CDT Pt ambulated to treatment room. Vitals obtained. Medicated per MD orders. Tolerated well. Bandaid applied to injection site. Pt left in stable condition. documented in this encounter Plan of Treatment Upcoming Encounters Date Type Department Care Team (Late st Contact Info) Description 03/23/2024 1:00 PM FASTENER TECHNOLOGIST Appointment [facility] Cardiology Services [address] [place] [address] Jose R Pearson MD [address] [place] [address] Discharge Disposition: Discharged to home or Selfcare 03/23/2024 2:30 PM FASTENER TECHNOLOGIST [facility] [address] [place] [address] Joes R Pearson MD [address] [place] [address] Discharge Disposition: Discharged to home or Selfcare 03/30/2024 10:00 AM FASTENER TECHNOLOGIST Office Visit [facility] Oncology Services [address] [place] [address] Jose R Pearson MD [address] [place] [address] Discharge Disposition: Discharged to home or Selfcare 03/30/2024 10:30 AM FASTENER TECHNOLOGIST Lab [facility] Oncology Services [address] [place] [address] Discharge Disposition: Discharged to home or Selfcare 03/31/2024 1:00 PM FASTENER TECHNOLOGIST Clinical Support [facility] Oncology Services [address] [place] [address] Jose R Pearson MD [address] [place] [address] Discharge Disposition: Discharged to home or Selfcare 04/28/2024 1:30 PM FASTENER TECHNOLOGIST Clinical Support [facility] Oncology Services [address] [place] [address] Discharge Disposition: Discharged to home or Selfcare [...] 120 mg, Subcutaneous, ONCE, 1 dose, On Fri12/24/23 at 1300, Administer to upper arm, upper thigh, or abdomen.Indications:Breas t cancer metastasized to axillary lymph node, right (HCC),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) Given 12/24/2023 1:14 PM CDT 120 mg Left Lateral Upper Arm documented in this encounter Additional Health Concerns Assessment Noted Time PHQ-9 Depression Total Score: 0 04/01/19 20 9:00 AM FASTENER TECHNOLOGIST documented as of this encounter Care Teams Remote Sensing Research Scientist Relationship Specialty Start Date End Date Iveth Guzman MD [address] [place] [address] PCP - General Family Medicine 05/02/23 Laurence Luque MD #[address] [address] Consulting Physician General Surgery 02/01/15 Clemencia Bennett MD [address] [place] [address] Family Medicine 01/30/18 Sony Mcpherson MD #[address] [address] Consulting Physician General Surgery 09/08/23 Jose R Pearson MD [address] [place] [address] Consulting Physician Medical Oncology 10/02/23 documented as of this encounter
--- OUTSIDE RECORDS SUMMARY | 2024-03-15 01:48 | XMS_ITS | Encounter Summary ---
Author Organization [facility] Care Team Providers Care Cheese Specialist Name Role Phone Laurence Luque MD Unavailable + [phone] Clemencia Bennett MD Unavailable [phone] Iveth Guzman MD Primary Care Provider + [phone] Sony Mcpherson MD Unavailable [phone] Jose R Pearson MD Unavailable [phone] Encounter Details Date Type Department Care Team (Latest Contact Info) Description 10/16/2023 Travel Social History Tobacco Use Types Packs/Day [...] st Contact Info) Description 03/23/2024 1:00 PM AGRICULTURAL EQUIPMENT TEST ENGINEER [facility] [address] [place] [address] Jose R Pearson MD [address] [place] [address] Discharge Disposition: Discharged to home or Selfcare 03/23/2024 2:30 PM AGRICULTURAL EQUIPMENT TEST ENGINEER Appointment [facility] [address] [place] [address] Jose R Pearson MD [address] [place] [address] Discharge Disposition: Discharged to home or Selfcare 03/30/2024 10:00 AM AGRICULTURAL EQUIPMENT TEST ENGINEER Office Visit [facility] Oncology Services [address] [place] [address] Jose R Pearson MD [address] [place] [address] Discharge Disposition: Discharged to home or Selfcare 03/30/2024 10:30 AM AGRICULTURAL EQUIPMENT TEST ENGINEER Lab [facility] Oncology Services [address] [place] [address] Discharge Disposition: Discharged to home or Selfcare 03/31/2024 1:00 PM AGRICULTURAL EQUIPMENT TEST ENGINEER Clinical Support [facility] Oncology Services [address] [place] [address] Jose R Pearson MD [address] [place] [address] Discharge Disposition: Discharged to home or Selfcare 04/28/2024 1:30 PM AGRICULTURAL EQUIPMENT TEST ENGINEER Clinical Support [facility] Oncology Services [address] [place] [address] Discharge Disposition: Discharged to home or Selfcare documented as of this encounter Goals Goal Patient Goal Type Associated Problems Recent Progress Patient-Stated? Author Exercise 3x per week (30 min per time) Exercise Chica Louis MD documented as of this encounter Visit Diagnoses Not on filedocumented in this encounter Additional Health Concerns Assessment Noted Time PHQ-9 Depression Total Score: 0 04/01/19 20 9:00 AM AGRICULTURAL EQUIPMENT TEST ENGINEER documented as of this encounter Care Teams Cheese Specialist Relationship Specialty Start Date End Date Iveth Guzman MD [address] [place] [address] PCP - General Family Medicine 05/02/23 Laurence Luque MD #[address] [address] Consulting Physician General Surgery 02/01/15 Clemencia Bennett MD [address] [place] [address] Family Medicine 01/30/18 Sony Mcpherson MD #[address] [address] Consulting Physician General Surgery 09/08/23 Jose R Pearson MD [address] [place] [address] Consulting Physician Medical Oncology 10/02/23 documented as of this encounter
--- OUTSIDE RECORDS SUMMARY | 2024-03-15 01:48 | XMS_ITS | Encounter Summary ---
Author Organization [facility] Address [address] [place] [address] Phone Care Team Providers Care Assistant Professor Of Sociology Name Role Phone Laurence Luque MD Unavailable Clemencia Bennett MD Unavailable Iveth Guzman MD Primary Care Provider [phone] Sony Mcpherson MD Unavailable [phone] Jose R Pearson MD Unavailable Encounter Details Date Type Department Care Team (Latest Contact Info) Description 11/25/2023 1:00 PM CDT Clinical Support [facility] Oncology Services [address] [place] [phone] Jose R Pearson MD [address] [place] [address] Breast cancer metastasized to axillary lymph node, [...] Interdisciplinary - Sister Sisi Barajas RN - 11/25/2023 1:00 PM CDT Patient ambulated to lab room. Labs obtained per order and via venipuncture. Site covered with gauze and coban. Patient left lab room in stable condition. documented in this encounter Plan of Treatment Upcoming Encounters Date Type Department Care Team (Late st Contact Info) Description 03/23/2024 1:00 PM EDUCATIONAL PSYCHOLOGIST [facility] [address] [place] [address] Jose R Pearson MD [address] [place] [address] Discharge Disposition: Discharged to home or Selfcare 03/23/2024 2:30 PM EDUCATIONAL PSYCHOLOGIST [facility] [address] [place] [address] Jose R Pearson MD [address] [place] [address] Discharge Disposition: Discharged to home or Selfcare 03/30/2024 10:00 AM EDUCATIONAL PSYCHOLOGIST [facility] [address] [place] [address] Jose R Pearson MD [address] [place] [address] Discharge Disposition: Discharged to home or Selfcare 03/30/2024 10:30 AM EDUCATIONAL PSYCHOLOGIST Lab [facility] Oncology Services [address] [place] [address] Discharge Disposition: Discharged to home or Selfcare 03/31/2024 1:00 PM EDUCATIONAL PSYCHOLOGIST Clinical Support [facility] Oncology Services [address] [place] [address] [place] [address] [place] [address] Discharge Disposition: Discharged to home or Selfcare 04/28/2024 1:30 PM EDUCATIONAL PSYCHOLOGIST Clinical Support [facility] Oncology Services [address] [place] [address] Discharge Disposition: Discharged to home or Selfcare documented as of this encounter Goals Goal Patient Goal Type Associated Problems Recent Progress Patient-Stated? 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 RBC 3.18(L) 3.80 - 5.30 10(6)/mcL 11/25/2023 2:16 PM CDT [facility] HEMOGLOBIN (HGB) 9.8(L) 12.0 - 15.8 g/dL 11/25/2023 2:16 PM CDT [facility] HEMATOCRIT (HCT) 30.1(L) 36.0 - 47.0 % 11/25/2023 2:16 PM CDT [facility] MCV 94.7 82.0 - 96.0 fL 11/25/2023 2:16 PM CDT [facility] MCH 30.8 26.0 - 34.0 pg 11/25/2023 2:16 PM CDT [facility] MCHC 32.6 31.0 - 36.0 g/dL 11/25/2023 2:16 PM CDT [facility] PLATELET COUNT 193 140 - 440 10(3)/mcL 11/25/2023 2:16 PM CDT [facility] RDW 17.3(H) 11.8 - 15.5 % 11/25/2023 2:16 PM CDT [facility] MPV 9.8 9.7 - 12.4 fL 11/25/2023 2:16 PM CDT [facility] NEUTROPHILS 55.8 47.0 - 73.0 % 11/25/2023 2:16 PM CDT [facility] LYMPHOCYTES 35.4 18.0 - 42.0 % 11/25/2023 2:16 PM CDT [facility] MONOCYTES 8.2 4.0 - 12.0 % 11/25/2023 2:16 PM CDT [facility] EOSINOPHILS 0.0 0.0 - 5.0 % 11/25/2023 2:16 PM CDT [facility] BASOPHILS 0.6 0.0 - 1.0 % 11/25/2023 2:16 PM CDT [facility] ABSOLUTE NEUTROPHILS 3.61 1.60 - 7.70 10(3)/mcL 11/25/2023 2:16 PM CDT [facility] ABSOLUTE LYMPHOCYTES 2.29 1.30 - 3.20 10(3)/[facility] 11/25/2023 2:16 PM CDT [facility] ABSOLUTE MONOCYTES 0.53 0.20 - 1.00 10(3)/[facility] 11/25/2023 2:16 PM CDT [facility] ABSOLUTE EOSINOPHIL 0.00 0.00 - 0.40 10(3)/[facility] 11/25/2023 2:16 PM CDT [facility] ABSOLUTE BASOPHILS 0.04 0.00 - 0.10 10(3)/[facility] 11/25/2023 2:16 PM CDT [facility] NRBC PER 100 WBC 0 11/25/19 2:16 PM CDT [facility] Blood Venipuncture / Unknown 11/25/2023 1:08 PM CDT 11/25/2023 1:08 PM CDT us Jose R Pearson MD HEMATOLOGY ORDERABLES Fi nal Result [facility] [address] [place] [address] * (ABNORMAL) CMP (COMPREHENSIVE METABOLIC PANEL) (11/25/2023 1:08 PM CDT) SODIUM 144 136 - 145 mmol/L 11/25/2023 2:19 PM CDT [facility] POTASSIUM 3.3(L) 3.5 - 5.1 mmol/L 11/25/2023 2:19 PM CDT [facility] CHLORIDE 109(H) 98 - 107 mmol/L 11/25/2023 2:19 PM CDT [facility] CO2, VENOUS 23 22 - 30 mmol/L 11/25/2023 2:19 PM CDT [facility] ANION GAP 15.3 <18.0 mmol/L 11/25/2023 2:19 PM CDT [facility] GLUCOSE 113(H) 70 - 99 mg/dL 11/25/2023 2:19 PM T [facility] BUN 9(L) 10 - 20 mg/dL 11/25/2023 2:19 PM [facility] CREATININE, BLOOD 0.71 0.60 - 1.00 mg/dL 11/25/2023 2:19 PM [facility] BUN/CREATININE RATIO 13 12 - 20 ratio 11/25/2023 2:19 PM T [facility] TOTAL PROTEIN 6.1(L) 6.3 - 8.2 g/dL 11/25/2023 2:19 PM T [facility] ALBUMIN 4.0 3.5 - 5.0 g/dL 11/25/2023 2:19 PM [facility] A/G RATIO 1.9 1.0 - 2.2 11/25/2023 2:19 PM [facility] CALCIUM 9.4 8.7 - 10.5 mg/dL 11/25/2023 2:19 PM [facility] T BILI 0.5 0.2 - 1.2 mg/dL 11/25/2023 2:19 PM [facility] SGOT (AST) 41(H) 5 - 34 U/L 11/25/2023 2:19 PM [facility] SGPT (ALT) 31 0 - 55 U/L 11/25/2023 2:19 PM [facility] ALKALINE PHOSPHATASE 83 40 - 150 U/L 11/25/2023 2:19 PM [facility] IS THE PATIENT REQUIRED TO BE FASTING? No 11/25/2023 2:19 PM [facility] GFR, ESTIMATED >60 >=60 11/25/2023 2:19 PM [facility] Comment: Creatinine Clearance is the preferred criteria for selecting drug dose adjustments in renally impaired patients. ??The GFR is provided as additional pertinent clinical information. GFR is reported in mL/min/1.73 sq m. Calculation based on the Chronic Kidney Disease Epidemiology Collaboration (CKD- EPI) equation refit without adjustment for race. GFR, EST. >60 >=60 024 2:19 PM CDT [facility] GFR, EST. 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) documented in this encounter Additional Health Concerns Assessment Noted Time PHQ-9 Depression Total Score: 0 04/01/19 20 9:00 AM EDUCATIONAL PSYCHOLOGIST documented as of this encounter Care Teams Assistant Professor Of Sociology Relationship Specialty Start Date End Date Iveth Guzman MD [address] [place] [address] PCP - General Family Medicine 05/02/23 Laurence Luque MD [address] [address] Consulting Physician General Surgery 02/01/15 Clemencia Bennett MD [address] [place] [address] Family Medicine 01/30/18 Sony Mcpherson MD [address] [address] Consulting Physician General Surgery 09/08/23 Jose R Pearson MD [address] [place] [address] Consulting Physician Medical Oncology 10/02/23 documented as of this encounter
--- OUTSIDE RECORDS SUMMARY | 2024-03-15 01:48 | XMS_ITS | Encounter Summary ---
Author Organization [facility] Address [address] [place] [address] Phone Care Team Providers Care Helminthologist Name Role Phone Laurence Luque MD Unavailable Clemencia Bennett MD Unavailable Iveth Guzman MD Primary Care Provider [phone] Sony Mcpherson MD Unavailable Jose R Pearson MD Unavailable [phone] Encounter Details Date Type Department Care Team (Latest Contact Info) Description 11/04/2023 1:20 PM CDT Clinical Support [facility] Oncology Services [address] [place] [address] Jose R Pearson MD [address] [place] [address] Breast cancer metastasized to axillary lymph node, [...] this encounter Miscellaneous Notes * Interdisciplinary - Kathryn Anderson, RN - 11/04/2023 1:20 PM CDT Pt added to schedule for lab draw. Labs drawn x1 attempt to RAC. Pt tolerated well. Site covered with gauze and secured. Schedule discussed with pt. Patient left tx area in stable condition with no further requests. documented in this encounter Plan of Treatment Upcoming Encounters Date Type Department Care Team (Late st Contact Info) Description 03/23/2024 1:00 PM ORGANIC EXTRACTIONS TECHNICIAN [facility]ointment [facility] Cardiology Services [address] [place] [address] Jose R Pearson MD [address] [place] [address] Discharge Disposition: Discharged to home or Selfcare 03/23/2024 2:30 PM ORGANIC EXTRACTIONS TECHNICIAN [facility]ointment [facility] CT [address] [place] [address] Jose R Pearson MD [address] [place] [address] Discharge Disposition: Discharged to home or Selfcare 03/30/2024 10:00 AM ORGANIC EXTRACTIONS TECHNICIAN Office [facility] On[facility] Services [address] [place] [address] Jose R Pearson MD [address] [place] [address] Discharge Disposition: Discharged to home or Selfcare 03/30/2024 10:30 AM ORGANIC EXTRACTIONS TECHNICIAN Lab [facility] Oncology Services [address] [place] [address] Discharge Disposition: Discharged to home or Selfcare 03/31/2024 1:00 PM ORGANIC EXTRACTIONS TECHNICIAN Clinical Support [facility] Oncology Services [address] [place] [address] [place] [address] [place] [address] Discharge Disposition: Discharged to home or Selfcare 04/28/2024 1:30 PM ORGANIC EXTRACTIONS TECHNICIAN Clinical Support [facility] Oncology Services [address] [place] [address] Discharge Disposition: Discharged to home or Selfcare documented as of this encounter Goals Goal Patient Goal Type Associated Problems Recent Progress Patient-Stated? 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30 10(6)/mcL 11/04/2023 1:38 PM CDT [facility] HEMOGLOBIN (HGB) 9.4(L) 12.0 - 15.8 g/dL 11/04/2023 1:38 PM CDT [facility] HEMATOCRIT (HCT) 28.4(L) 36.0 - 47.0 % 11/04/2023 1:38 PM CDT [facility] MCV 90.7 82.0 - 96.0 fL 11/04/2023 1:38 PM CDT [facility] MCH 30.0 26.0 - 34.0 pg 11/04/2023 1:38 PM CDT [facility] MCHC 33.1 31.0 - 36.0 g/dL 11/04/2023 1:38 PM CDT [facility] PLATELET COUNT 193 140 - 440 10(3)/mcL 11/04/2023 1:38 PM CDT [facility] RDW 14.6 11.8 - 15.5 % 11/04/2023 1:38 PM CDT [facility] MPV 9.4(L) 9.7 - 12.4 fL 11/04/2023 1:38 PM CDT [facility] NEUTROPHILS 57.7 47.0 - 73.0 % 11/04/2023 1:38 PM CDT [facility] LYMPHOCYTES 31.2 18.0 - 42.0 % 11/04/2023 1:38 PM CDT [facility] MONOCYTES 10.7 4.0 - 12.0 % 11/04/2023 1:38 PM CDT [facility] EOSINOPHILS 0.0 0.0 - 5.0 % 11/04/2023 1:38 PM CDT [facility] BASOPHILS 0.4 0.0 - 1.0 % 11/04/2023 1:38 PM CDT [facility] ABSOLUTE NEUTROPHILS 3.86 1.60 - 7.70 10(3)/mcL 11/04/2023 1:38 PM CDT [facility] ABSOLUTE LYMPHOCYTES 2.09 1.30 - 3.20 10(3)/[facility] 11/04/2023 1:38 PM CDT [facility] ABSOLUTE MONOCYTES 0.72 0.20 - 1.00 10(3)/[facility] 11/04/2023 1:38 PM CDT [facility] ABSOLUTE EOSINOPHIL 0.00 0.00 - 0.40 10(3)/[facility] 11/04/2023 1:38 PM CDT [facility] ABSOLUTE BASOPHILS 0.03 0.00 - 0.10 10(3)/[facility] 11/04/2023 1:38 PM CDT [facility] NRBC PER 100 WBC 0 11/04/19 1:38 PM CDT [facility] Blood Venipuncture / Unknown 11/04/2023 1:03 PM CDT 11/04/2023 1:03 PM CDT us Jose R Pearson MD HEMATOLOGY ORDERABLES Fi nal Result [facility] [address] [place] [address] * (ABNORMAL) CMP (COMPREHENSIVE METABOLIC PANEL) (11/04/2023 1:03 PM CDT) SODIUM 144 136 - 145 mmol/L 11/04/2023 1:58 PM CDT [facility] POTASSIUM 3.8 3.5 - 5.1 mmol/L 11/04/2023 1:58 PM CDT [facility] CHLORIDE 114(H) 98 - 107 mmol/L 11/04/2023 1:58 PM CDT [facility] CO2, VENOUS 23 22 - 30 mmol/L 11/04/2023 1:58 PM CDT [facility] ANION GAP 10.8 <18.0 mmol/L 11/04/2023 1:58 PM CDT [facility] GLUCOSE 104(H) 70 - 99 mg/dL 11/04/2023 1:[address] [facility] BUN 8(L) 10 - 20 mg/dL 11/04/2023 1:[address] [facility] CREATININE, BLOOD 0.69 0.60 - 1.00 mg/dL 11/04/2023 1:[address] [facility] BUN/CREATININE RATIO 12 12 - 20 ratio 11/04/2023 1:[address] [facility] TOTAL PROTEIN 5.7(L) 6.3 - 8.2 g/dL 11/04/2023 1:[address] [facility] ALBUMIN 3.7 3.5 - 5.0 g/dL 11/04/2023 1:[address] [facility] A/G RATIO 1.9 1.0 - 2.2 11/04/2023 1:[address] [facility] CALCIUM 9.0 8.7 - 10.5 mg/dL 11/04/2023 1:[address] [facility] T BILI 0.3 0.2 - 1.2 mg/dL 11/04/2023 1:[address] [facility] SGOT (AST) 23 5 - 34 U/L 11/04/2023 1:[address] [facility] SGPT (ALT) 26 0 - 55 U/L 11/04/2023 1:[address] [facility] ALKALINE PHOSPHATASE 88 40 - 150 U/L 11/04/2023 1:[address] [facility] IS THE PATIENT REQUIRED TO BE FASTING? No 11/04/2023 1:[address] [facility] GFR, ESTIMATED >60 >=60 11/04/2023 1:[address] [facility] Comment: Creatinine Clearance is the preferred criteria for selecting drug dose adjustments in renally impaired patients. ??The GFR is provided as additional pertinent clinical information. GFR is reported in mL/min/1.73 sq m. Calculation based on the Chronic Kidney Disease Epidemiology Collaboration (CKD- EPI) equation refit without adjustment for race. GFR, EST. >60 >=60 024 1:58 PM CDT [facility] GFR, EST. 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) documented in this encounter Additional Health Concerns Assessment Noted Time PHQ-9 Depression Total Score: 0 04/01/19 9:00 AM ORGANIC EXTRACTIONS TECHNICIAN documented as of this encounter Care Teams Helminthologist Relationship Specialty Start Date End Date Iveth Guzman MD [address] [place] [address] PCP - General Family Medicine 05/02/23 Laurence Luque MD [address] [address] Consulting Physician General Surgery 02/01/15 Clemencia Bennett MD [address] [place] [address] Family Medicine 01/30/18 Sony Mcpherson MD [address] [address] Consulting Physician General Surgery 09/08/23 Jose R Pearson MD [address] [place] [address] Consulting Physician Medical Oncology 10/02/23 documented as of this encounter
--- OUTSIDE RECORDS SUMMARY | 2024-03-15 01:48 | XMS_ITS | Encounter Summary ---
Author Organization [facility] Address [address] 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) Procedures CT CHEST ABDOMEN AND PELVIS W CONTRAST Jose R Pearson MD [address] [place] [address] Phone: tel: fax: Referral ID Status Reason Start Date Expiration Date Visits Re quested Visits Authorized [id number] Closed 11/26/2023 1 1 Reason for Visit * Radiology Services (Routine) - Closed Specialty Diagnoses / Procedures Referred By Contac t Referred To Contact Radiology Diagnoses Breast cancer metastasized to axillary lymph node, 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) Procedures CT CHEST ABDOMEN AND PELVIS W CONTRAST Jose R Pearson MD [address] [place] [address] Phone: tel: fax: Referral ID Status Reason Start Date Expiration Date Visits Re quested Visits Authorized [id number] Closed 11/26/2023 1 1 Encounter Details Date Type Department Care Team (Latest Contact Info) Description 12/20/2023 7:23 AM CDT - 12/20/2023 11:59 PM CDT Hospital En[facility] CT [address] [place] [phone] Jose R Pearson MD [address] [place], [place] [id number] Discharge Disposition: Discharged to home or Selfcare [...] st Contact Info) Description 03/23/2024 1:00 PM EXTENDER [facility] [address] [place] [address] Jose R Pearson MD [address] [place] [address] Discharge Disposition: Discharged to home or Selfcare 03/23/2024 2:30 PM EXTENDER Appointment [facility] [address] [place] [address] Jose R Pearson MD [address] [place] [address] Discharge Disposition: Discharged to home or Selfcare 03/30/2024 10:00 AM EXTENDER Office Visit [facility] Oncology Services [address] [place] [address] [place] [address] [place] [address] Discharge Disposition: Discharged to home or Selfcare 03/30/2024 10:30 AM EXTENDER Lab [facility] Oncology Services [address] [place] [phone] Discharge Disposition: Discharged to home or Selfcare 03/31/2024 1:00 PM EXTENDER Clinical Support [facility] Oncology Services [address] [place] [address] Jose R Pearson MD [address] [place] [address] Discharge Disposition: Discharged to home or Selfcare 04/28/2024 1:30 PM EXTENDER Clinical Support [facility] Oncology Services [address] [place] [address] Discharge Disposition: Discharged to home or Selfcare documented as of this encounter Goals Goal Patient Goal Type Associated Problems Recent Progress Patient-Stated? 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 PS: PS D: ??12/23/2023 3:24 PM T: ??12/23/2023 3:24 PM Report ID: [id number] Reading Location: ??[id number] Procedure Note Nasima Lopez DO - 12/23/2023 [...] Nasima Lopez D.O. PS: PS Report ID: [id number] Reading Location: [place] [address] IMPRESSION: Interval decrease in size of the [...] MAR Action Action Date Dose Rate Site iopamidol (ISOVUE-370) 76 % injection 100 mL 100 mL, Intravenous, ONCE, 1 dose, On 12/20/23 at 0800 Given 12/20/2023 7:38 AM CDT 100 mL documented in this encounter Additional Health Concerns Assessment Noted Time PHQ-9 Depression Total Score: 0 04/01/19 20 9:00 AM EXTENDER documented as of this encounter Care Teams Associate Director Of Biostatistics Relationship Specialty Start Date End Date Iveth Guzman MD [address] [place] [address] PCP - General Family Medicine 05/02/23 Laurence Luque MD [address] [address] Consulting Physician General Surgery 02/01/15 Clemencia Bennett MD [address] [place] [address] Family Medicine 01/30/18 Sony Mcpherson MD #[address] [address] Consulting Physician General Surgery 09/08/23 Jose R Pearson MD [address] [place] [address] Consulting Physician Medical Oncology 10/02/23 documented as of this encounter
--- OUTSIDE RECORDS SUMMARY | 2024-03-15 01:49 | XMS_ITS | Encounter Summary ---
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) Jose R Pearson MD [address] [place] [address] Phone: tel: fax: [facility] On[facility] Services [address] [place] [address] Phone: tel: fax: Referral ID Status Reason Start Date Expiration Date Visits Re quested Visits Authorized [id number] Closed 09/16/2023 1 4 Encounter Details Date Type Department Care Team (Latest Contact Info) Description 09/25/2023 3:00 PM CDT Clinical Support [facility] Oncology Services [address] [place] [phone] Jose R Pearson MD [address] [place] [address] Breast cancer metastasized to axillary lymph node, [...] Sign Reading Time Taken Comments Blood Pressure 139/87 09/25/2023 3:01 PM CDT Pulse 72 09/25/2023 3:01 PM CDT Temperature 36.4 ??C (97.6 ??F) 09/25/2023 3:01 PM CD T Respiratory Rate 18 09/25/2023 3:01 PM CDT Oxygen Saturation 95% 09/25/2023 3:01 PM CDT Inhaled Oxygen Concentration - - Weight - - Height - - Body Mass Index - - documented in this encounter Miscellaneous Notes * Interdisciplinary - Lalita Lee RN - 09/25/2023 3:00 PM CDT VS obtained. Patient medicated by injection per MD orders and tolerated well. Site secured with bandaid. Patient left facility in safe disposition. documented in this encounter Plan of Treatment Upcoming Encounters Date Type Department Care Team (Late st Contact Info) Description 03/23/2024 1:00 PM COLOR ARTIST Appointment [facility] Cardiology Services [address] [place] [address] Jose R Pearson MD [address] [place] [address] Discharge Disposition: Discharged to home or Selfcare 03/23/2024 2:30 PM COLOR ARTIST Appointment [facility] [address] [place] [address] Jose R Pearson MD [address] [place] [address] Discharge Disposition: Discharged to home or Selfcare 03/30/2024 10:00 AM COLOR ARTIST Office Visit [facility] [address] [place] [address] Jose R Pearson MD [address] [place] [address] Discharge Disposition: Discharged to home or Selfcare 03/30/2024 10:30 AM COLOR ARTIST Lab [facility] [address] [place] [address] Discharge Disposition: Discharged to home or Selfcare 03/31/2024 1:00 PM COLOR ARTIST Clinical Support [facility] [address] [place] [phone] Jose R Pearson MD [address] [place] [address] Discharge Disposition: Discharged to home or Selfcare 04/28/2024 1:30 PM COLOR ARTIST Clinical Support [facility] [address] [place] [address] Discharge Disposition: Discharged to home or Selfcare [...] mg, Subcutaneous, ONCE, 1 dose, On Lizzie 09/25/23 at 0900Indications:Breast cancer metastasized to axillary lymph node, right (HCC),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) Given 09/25/2023 3:02 PM CDT 6 mg Left Lateral Upper Arm documented in this encounter Additional Health Concerns Assessment Noted Time PHQ-9 Depression Total Score: 0 04/01/19 20 9:00 AM COLOR ARTIST documented as of this encounter Care Teams Cargo Agent Relationship Specialty Start Date End Date Iveth Guzman MD [address] [place] [address] PCP - General Family Medicine 05/02/23 Laurence Luque MD [address] [phone] Consulting Physician General Surgery 02/01/15 Clemencia [place] [address] Family Medicine 01/30/18 Sony Mcpherson MD [address] [address] Consulting Physician General Surgery 09/08/23 documented as of this encounter
--- OUTSIDE RECORDS SUMMARY | 2024-03-15 01:49 | XMS_ITS | Encounter Summary ---
Author Organization [facility] Address [address] [place] [address] Phone Care Team Providers Care Sole Rounder Name Role Phone Laurence Luque MD Unavailable [phone] Clemencia Bennett MD Unavailable [phone] Iveth Guzman MD Primary Care Provider [phone] Reason for Visit * Radiology Services (Less Than 2 Weeks) - Closed Specialty Diagnoses / Procedures Referred By Martin laguna Referred To Contact Radiology Diagnoses Recurrent malignant neoplasm of right breast (HCC) Procedures NM BONE SCAN WHOLE BODY oJse R Pearson MD [address] [place] [address] Phone: tel: fax: Referral ID Status Reason Start Date Expiration Date Visits Re quested Visits Authorized [id number] Closed 08/26/2023 1 1 Encounter Details Date Type Department Care Team (Latest Contact Info) Description 09/01/2023 12:45 PM CDT - 09/01/2023 11:59 PM CDT Hospital Encounter [facility] Nuclear Medicine 1 [place] [phone] Jose R Pearson MD [address] [place] [address] Discharge Disposition: Discharged to home or Selfcare [...] this encounter Medications at Time of Discharge Multiple Vitamin (MULTI-VITAMIN PO) Take 1 Tab by mouth daily. triamcinolone (KENALOG) 0.1 % CreamIndications:An aphylaxis, sequela,Hives Application Site:apply sparingly bid to affected area 45 g 2 10/14/2022 atorvastatin (LIPITOR) 10 MG TabletIndications:H yperlipidemia, unspecified hyperlipidemia type Take 1 tablet by mouth once daily 90 Tablet 07/16/2023 10/30/19 24 LORazepam (ATIVAN) 0.5 MG TabletIndications:R ecurrent malignant neoplasm of right breast (HCC) Take 1 Tablet by mouth every 8 hours as needed for Anxiety. 30 Tablet 08/26/2023 10/02/19 24 metoprolol tartrate (LOPRESSOR) 25 MG TabletIndications:E ssential hypertension Take 1 tablet by mouth twice daily 180 Tablet 07/16/2023 10/30/19 24 documented as of this encounter Plan of Treatment Upcoming Encounters Date Type Department Care Team (Late st Contact Info) Description 03/23/2024 1:00 PM LINE TENDER FLAKEBOARD [facility] [address] [place] [address] Jose R Pearson MD [address] [place] [address] Discharge Disposition: Discharged to home or Selfcare 03/23/2024 2:30 PM LINE TENDER FLAKEBOARD [facility] [address] [place] [address] Jose R Pearson MD [address] [place] [address] Discharge Disposition: Discharged to home or Selfcare 03/30/2024 10:00 AM LINE TENDER FLAKEBOARD Office Visit [facility] Oncology Services [address] [place] [address] Jose R Pearson MD [address] [place] [address] Discharge Disposition: Discharged to home or Selfcare 03/30/2024 10:30 AM LINE TENDER FLAKEBOARD Lab [facility] Oncology Services [address] [place] [phone] Discharge Disposition: Discharged to home or Selfcare 03/31/2024 1:00 PM LINE TENDER FLAKEBOARD Clinical Support [facility] Oncology Services [address] [place] [address] Jose R Pearson MD [address] [place] [address] Discharge Disposition: Discharged to home or Selfcare 04/28/2024 1:30 PM LINE TENDER FLAKEBOARD Clinical Support [facility] Oncology Services [address] [place] [address] Discharge Disposition: Discharged to home or Selfcare documented as of this encounter Goals Goal Patient Goal Type Associated Problems Recent Progress Patient-Stated? Author Exercise 3x per week (30 min per time) Exercise Chica Louis MD documented as of this encounter Procedures Procedure Name Priority Date/Time Associated Diagnosis Comments NM BONE SCAN WHOLE BODY Less Than 2 weeks 09/01/2023 12:59 PM CDT Recurrent malignant neoplasm of right breast (HCC) documented in this encounter Results * NM BONE SCAN WHOLE BODY (09/01/2023 12:59 PM CDT) Anatomical Region Laterality Modality BODY N/A Nuclear Medicine 09/01/2023 2:06 PM CDT Impressions 09/01/2023 2:09 PM CDT IMPRESSION: ?? 1. ?? Focal uptake in the medial right iliac bone without corresponding CT abnormality. ??This is suspicious for metastatic disease. 2. ?? Foci of uptake within the right anterior 5th and right lateral 7th ribs. ??There are areas of subtle associated lucency in the right anterior 5th rib and right lateral 7th rib. ??This may represent early metastatic disease. 3. ?? Subtle uptake projecting over the left distal humerus is only seen on the anterior view and may be related to injection. ??Left humerus radiographs could be obtained. 4. ?? Could correlate with PET-CT for further evaluation of the above findings. Narrative 09/01/2023 2:09 PM CDT EXAM DESCRIPTION: ?? NM BONE SCAN WHOLE BODY RADIOPHARMACEUTICAL: 25.7 ??mCi Tc-99m ??MDP ??via a ??left antecubital vein ??IV site REASON FOR STUDY: ?? Breast cancer. TECHNIQUE: Delayed whole-body scintigrams were obtained. COMPARISON: Prior Bone Scan: ?? None ?? Prior Anatomic imaging: ?? CT chest, abdomen, pelvis 09/01/2023 FINDINGS: ?? Delayed total body images and spot views of the chest were obtained. ??There is a focus of uptake in the anterior right 5th rib there is also uptake within the right lateral 7th rib. ??When correlating with the recent CT scan, there may be an associated lytic abnormality in the right anterior 5th rib. ??Possible associated lytic abnormality in the right lateral 7th rib. ??There is focal uptake within the medial right iliac bone. ??No corresponding abnormality on the CT scan. ??Subtle uptake projecting over the distal left humerus likely related to activity from injection. Mild uptake in the shoulders is most typical of degenerative change. There is normal genitourinary and soft tissue uptake. THIS IS AN ELECTRONICALLY VERIFIED FINAL REPORT 09/01/2023 2:06 PM - Electronically signed by ??Keo Quiroz M.D. LB: NAVEED D: ??09/01/2023 2:06 PM T: ??09/01/2023 2:06 PM Report ID: [id number] Reading Location: ??[id number] Procedure Note Keo Quiroz MD - 09/01/2023 EXAM DESCRIPTION: NM BONE SCAN WHOLE BODY RADIOPHARMACEUTICAL: 25.7 mCi Tc-99m MDP via a left antecubital vein IV site REASON FOR STUDY: Breast cancer. TECHNIQUE: Delayed whole-body scintigrams were obtained. COMPARISON: Prior Bone Scan: None Prior Anatomic imaging: CT chest, abdomen, pelvis 09/01/2023 FINDINGS: Delayed total body images and spot views of the chest were obtained. There is a focus of uptake in the anterior right 5th rib there is also uptake within the right lateral 7th rib. When correlating with the recent CT scan, there may be an associated lytic abnormality in the right anterior 5th rib. Possible associated lytic abnormality in the right lateral 7th rib. There is focal uptake within the medial right iliac bone. No corresponding abnormality on the CT scan. Subtle uptake projecting over the distal left humerus likely related to activity from injection. Mild uptake in the shoulders is most typical of degenerative change. There is normal genitourinary and soft tissue uptake. THIS IS AN ELECTRONICALLY VERIFIED FINAL REPORT 09/01/2023 2:06 PM - Electronically signed by Keo Quiroz M.D. LB: NAVEED Report ID: [id number] Reading Location: [id number] IMPRESSION: 1. Focal uptake in the medial right iliac bone without corresponding CT abnormality. This is suspicious for metastatic disease. 2. Foci of uptake within the right anterior 5th and right lateral 7th ribs. There are areas of subtle associated lucency in the right anterior 5th rib and right lateral 7th rib. This may represent early metastatic disease. 3. Subtle uptake projecting over the left distal humerus is only seen on the anterior view and may be related to injection. Left humerus radiographs could be obtained. 4. Could correlate with PET-CT for further evaluation of the above findings. Jose R Pearson MD [facility] ORDERABLES Final Result documented in this encounter Visit Diagnoses Not on filedocumented in this encounter Additional Health Concerns Assessment Noted Time PHQ-9 Depression Total Score: 0 04/01/19 20 9:00 AM LINE TENDER FLAKEBOARD documented as of this encounter Care Teams Sole Rounder Relationship Specialty Start Date End Date Iveth Guzman MD [address] [place] [address] PCP - General Family Medicine 05/02/23 Laurence Luque MD [address] [address] Consulting Physician General Surgery 02/01/15 Clemencia Bennett MD [address] [place] [address] Family Medicine 01/30/18 documented as of this encounter
--- OUTSIDE RECORDS SUMMARY | 2024-03-15 01:49 | XMS_ITS | Encounter Summary ---
Author Organization [facility] Address [address] [place] [address] Phone Care Team Providers Care Acupuncture Physician Name Role Phone Laurence Luque MD Unavailable Clemencia Bennett MD Unavailable [phone] Iveth Guzman MD Primary Care Provider [phone] Sony Mcpherson MD Unavailable Jose R Pearson MD Unavailable [phone] Encounter Details Date Type Department Care Team (Late st Contact Info) Description 09/24/2023 Documentation Only [facility] Oncology Services [address] [place] [address] Jose R Pearson MD [address] [place] [address] Social History Tobacco Use Types Packs/Day Years [...] this encounter Miscellaneous Notes * Interdisciplinary - Catalina Bermudez RD - 09/24/2023 2:56 PM CDT S: Diagnosis: Rt breast IDC, HER2 positive Treatment Plan: chemotherapy (TCHP, taxotere, carboplatin, herceptin, pertuzumab) Nutrition Problem: Increased nutrient needs R/T & evidenced by CA Dx & CA treatment. B: Home Diet: general (limiting refined CHO foods) Home oral supplement: Ensure (160 calorie variety) Nutrition Impact Symptoms: none (at this time) Medical History: GERD, HTN, 2013-bilateral mastectomy Medications: lipitor, decadron, zofran, compazine Vitamins: Vitamin D, MVI Labs: 09/24/23-albumin=4.4, FE=293, Va=211, K=3.7, EGFR>60; Initial Wt: 156# 11oz -09/24/2023 Height: 5' 1 BMI: 29.61 BMI weight range for height: 100-132# Adjusted BW: 130# EMR wt hx: 162# 14oz -[facility] [facility] 173# -05/02/2023 (PCP) 162# 9oz -04/16/2022 (PCP) %Wt Loss: 4% in 3.5 weeks Estimated needs:(based on adjusted BW) Calories: 1800 (30kcal/kg) Protein: 59-71gm (1-1.2gm/kg) Fluids: 1800ml A: Initial chemo today, 09/24/23; appetite & weight decreased due to stress related to recent Dx; Has also cut back on sweets & this was encouraged due to steroid therapy; started drinks Ensuredaily; Information: Nutrition & Maintaining Hydration During Chemo, Maximizing Nutrition, Tips for Increasing PRO. Goal: weight maintenance within 6% (or 10#) from initial weight. CATALINA BERMUDEZ RD; 09/24/2023,3:38 PM CDT documented in this encounter Plan of Treatment Upcoming Encounters Date Type Department Care Team (Late st Contact Info) Description 03/23/2024 1:00 PM IRON PELLET TESTER Appointment [facility] Cardiology Services [address] [place] [address] Jose R Pearson MD [address] [place] [address] Discharge Disposition: Discharged to home or Selfcare 03/23/2024 2:30 PM IRON PELLET TESTER Appointment [facility] CT [address] [facility] [place] [address] Jose R Pearson MD [address] [place] [address] Discharge Disposition: Discharged to home or Selfcare 03/30/2024 10:00 AM IRON PELLET TESTER Office Visit [facility] Oncology Services [address] [place] [address] Jose R Pearson MD [address] [place] [address] Discharge Disposition: Discharged to home or Selfcare 03/30/2024 10:30 AM IRON PELLET TESTER Lab [facility] Oncology Services [address] [place] [address] Discharge Disposition: Discharged to home or Selfcare 03/31/2024 1:00 PM IRON PELLET TESTER Clinical Support [facility] Oncology Services [address] [place] [address] Jose R Pearson MD [address] [place] [address] Discharge Disposition: Discharged to home or Selfcare 04/28/2024 1:30 PM IRON PELLET TESTER Clinical Support [facility] Oncology Services [address] [place] [address] Discharge Disposition: Discharged to home or Selfcare [...] Total Score: 0 04/01/19 20 9:00 AM IRON PELLET TESTER documented as of this encounter Care Teams Acupuncture Physician Relationship Specialty Start Date End Date Iveth Guzman MD [address] [place] [address] PCP - General Family Medicine 05/02/23 Laurence Luque MD #[address] [address] Consulting Physician General Surgery 02/01/15 Clemencia Bennett MD [address] [place] [address] Family Medicine 01/30/18 Sony Mcpherson MD #[address] [address] Consulting Physician General Surgery 09/08/23 Jose R Pearson MD [address] [place] [address] Consulting Physician Medical Oncology 10/02/23 documented as of this encounter
--- OUTSIDE RECORDS SUMMARY | 2024-03-15 01:49 | XMS_ITS | Encounter Summary ---
Author Organization [facility] Address [address] [employer] [facility] [place] [address] Phone Care Team Providers Care Laboratory Sample Carrier Name Role Phone Laurence Luque MD Unavailable Clemencia Bennett MD Unavailable [phone] Iveth Guzman MD Primary Care Provider + [phone] Sony Mcpherson MD Unavailable [phone] Encounter Details Date Type Department Care Team (Late st Contact Info) Description 09/10/2023 Telephone [facility] Oncology Services [address] [place] [address] Liat De La Cruz MSW PA Social History Tobacco Use Types Packs/Day Years [...] encounter Miscellaneous Notes * Telephone Encounter - Liat De La Cruz MSW - 09/10/2023 10:35 AM CDT Spoke with Angie by phone. Treatment decisions have been finalized to her satisfaction. No needs verbalized at this time. documented in this encounter Plan of Treatment Upcoming Encounters Date Type Department Care Team (Late st Contact Info) Description 03/23/2024 1:00 PM SERVICES COORDINATOR Appointment [facility] Cardiology Services [address] [place] [address] Jose R Pearson MD [address] [place] [address] Discharge Disposition: Discharged to home or Selfcare 03/23/2024 2:30 PM SERVICES COORDINATOR Appointment [facility] [address] [place] [address] Jose R Pearson MD [address] [place] [address] Discharge Disposition: Discharged to home or Selfcare 03/30/2024 10:00 AM SERVICES COORDINATOR Office Visit [facility] Oncology Services [address] [place] [address] Jose R Pearson MD [address] [place] [address] Discharge Disposition: Discharged to home or Selfcare 03/30/2024 10:30 AM SERVICES COORDINATOR Lab [facility] Oncology Services [address] [place] [phone] Discharge Disposition: Discharged to home or Selfcare 03/31/2024 1:00 PM SERVICES COORDINATOR Clinical Support [facility] Oncology Services [address] [place] [address] Jose R Pearson MD [address] [place] [address] Discharge Disposition: Discharged to home or Selfcare 04/28/2024 1:30 PM SERVICES COORDINATOR Clinical Support [facility] Oncology Services [address] [place] [address] Discharge Disposition: Discharged to home or Selfcare [...] Total Score: 0 04/01/19 20 9:00 AM SERVICES COORDINATOR documented as of this encounter Care Teams Laboratory Sample Carrier Relationship Specialty Start Date End Date Iveth Guzman MD [address] [place] [address] PCP - General Family Medicine 05/02/23 Laurence Luque MD #[address] [address] Consulting Physician General Surgery 02/01/15 Clemencia Bennett MD [address] [place] [address] Family Medicine 01/30/18 Sony Mcpherson MD #[address] [phone] Consulting Physician General Surgery 09/08/23 documented as of this encounter
--- OUTSIDE RECORDS SUMMARY | 2024-03-15 01:49 | XMS_ITS | Encounter Summary ---
Author Organization [facility] Address [address] [place] [address] Phone Care Team Providers Care Rebeamer Name Role Phone Laurence Luque MD Unavailable Clemencia Bennett MD Unavailable [phone] Iveth Guzman MD Primary Care Provider [phone] Sony Mcpherson MD Unavailable [phone] Encounter Details Date Type Department Care Team (Late st Contact Info) Description 09/26/2023 Telephone [facility] Oncology Services [address] [place] [address] Jose R Pearson MD [address] [place] [address] Social History Tobacco Use Types Packs/Day Years [...] Telephone Encounter - Justen Godoy RN - 09/26/2023 12:10 PM CDT Follow up call post treatment placed. Pt states she is doing fine, some minor nausea. Eating and drinking well. Encouraged to call if she needs anything. Verbalized understanding. documented in this encounter Plan of Treatment Upcoming Encounters Date Type Department Care Team (Late st Contact Info) Description 03/23/2024 1:00 PM TREE WRAPPER Appointment [facility] Cardiology Services [address] [place] [address] Jose R Pearson MD [address] [place] [address] Discharge Disposition: Discharged to home or Selfcare 03/23/2024 2:30 PM TREE WRAPPER Appointment [facility] [address] [place] [address] Jose R Pearson MD [address] [place] [address] Discharge Disposition: Discharged to home or Selfcare 03/30/2024 10:00 AM TREE WRAPPER Office Visit [facility] Oncology Services [address] [place] [address] Jose R Pearson MD [address] [place] [address] Discharge Disposition: Discharged to home or Selfcare 03/30/2024 10:30 AM TREE WRAPPER Lab [facility] Oncology Services [address] [place] [address] Discharge Disposition: Discharged to home or Selfcare 03/31/2024 1:00 PM TREE WRAPPER Clinical Support [facility] Oncology Services [address] [place] [phone] Jose R Pearson MD [address] [place] [address] Discharge Disposition: Discharged to home or Selfcare 04/28/2024 1:30 PM TREE WRAPPER Clinical Support [facility] Oncology Services [address] [place] [address] Discharge Disposition: Discharged to home or Selfcare documented as of this encounter Goals Goal Patient Goal Type Associated Problems Recent Progress Patient-Stated? Author Exercise 3x per week (30 min per time) Exercise Chica Louis MD documented as of this encounter Visit Diagnoses Not on filedocumented in this encounter Additional Health Concerns Assessment Noted Time PHQ-9 Depression Total Score: 0 04/01/19 20 9:00 AM TREE WRAPPER documented as of this encounter Care Teams Rebeamer Relationship Specialty Start Date End Date Iveth Guzman MD [address] [place] [address] PCP - General Family Medicine 05/02/23 Laurence Luque MD #[address] [phone] Consulting Physician General Surgery 02/01/15 Clemencia Bennett MD [address] [place] [address] Family Medicine 01/30/18 Sony Mcpherson MD #[address] [phone] Consulting Physician General Surgery 09/08/23 documented as of this encounter
--- OUTSIDE RECORDS SUMMARY | 2024-03-15 01:49 | XMS_ITS | Encounter Summary ---
Author Organization [facility] Address [address] [place] [address] Phone Care Team Providers Care Clothes Separator Name Role Phone Laurence Luque MD Unavailable Clemencia Bennett MD Unavailable Iveth Guzman MD Primary Care Provider [phone] Sony Mcpherson MD Unavailable Jose R Pearson MD Unavailable [phone] Encounter Details Date Type Department Care Team (Latest Contact Info) Description 10/14/2023 1:00 PM CDT Clinical Support [facility] Oncology Services [address] [place] [id number] Jose R Pearson MD [address] [place] [address] Breast cancer metastasized to axillary lymph node, [...] Interdisciplinary - Lalita Lee RN - 10/14/2023 1:00 PM CDT Patient here for scheduled labs today. Pt port accessed per sterile technique, unable to obtain blood return after approximately 6 NS flushes and pt repositioning. Port flushes with ease and patient denies any pain or discomfort upon flushing. Orders for Alteplase today per MD. Pt amendable. Dressing applied to port. Pt resting in chair. documented in this encounter Plan of Treatment Upcoming Encounters Date Type Department Care Team (Late st Contact Info) Description 03/23/2024 1:00 PM AIRFIELD MANAGER [facility] [address] [place] [address] Jose R Pearson MD [address] [place] [address] Discharge Disposition: Discharged to home or Selfcare 03/23/2024 2:30 PM AIRFIELD MANAGER Appointment [facility] [address] [place] [address] Jose R Pearson MD [address] [place] [address] Discharge Disposition: Discharged to home or Selfcare 03/30/2024 10:00 AM AIRFIELD MANAGER [facility] [address] [place] [address] Jose R Pearson MD [address] [place] [address] Discharge Disposition: Discharged to home or Selfcare 03/30/2024 10:30 AM AIRFIELD MANAGER Lab [facility] Oncology Services [address] [place] [address] Discharge Disposition: Discharged to home or Selfcare 03/31/2024 1:00 PM AIRFIELD MANAGER Clinical Support [facility] Oncology Services [address] [place] [address] [place] [address] [place] [address] Discharge Disposition: Discharged to home or Selfcare 04/28/2024 1:30 PM AIRFIELD MANAGER Clinical Support [facility] Oncology Services [address] [place] [address] Discharge Disposition: Discharged to home or Selfcare Scheduled Orders Name Type Priority Associated Diagnoses Orde r Schedule COMPLETE BLOOD COUNT (CBC) WITH DIFF Lab STAT Breast cancer metastasized to axillary lymph node, 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) COMPLETE BLOOD COUNT (CBC) WITH DIFF STAT 10/14/2023 2:59 PM CDT Breast cancer metastasized to axillary lymph node, 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) documented in this encounter Results * (ABNORMAL) CMP (COMPREHENSIVE METABOLIC PANEL) (03/11/2024 1:02 PM AIRFIELD MANAGER) SODIUM 142 136 - 145 mmol/L 03/11/2024 1:28 PM [facility] POTASSIUM 3.5 3.5 - 5.1 mmol/L 03/11/2024 1:28 PM [facility] CHLORIDE 108(H) 98 - 107 mmol/L 03/11/2024 1:28 PM [facility] CO2, VENOUS 24 22 - 30 mmol/L 03/11/2024 1:28 PM [facility] ANION GAP 13.5 <18.0 mmol/L 03/11/2024 1:28 PM [facility] GLUCOSE 95 70 - 99 mg/dL 03/11/2024 1:28 PM [facility] BUN 9(L) 10 - 20 mg/dL 03/11/2024 1:28 PM [facility] CREATININE, BLOOD 0.72 0.60 - 1.00 mg/dL 03/11/2024 1:28 PM [facility] BUN/CREATININE RATIO 13 12 - 20 ratio 03/11/2024 1:28 PM [facility] TOTAL PROTEIN 6.6 6.3 - 8.2 g/dL 03/11/2024 1:28 PM [facility] ALBUMIN 3.8 3.5 - 5.0 g/dL 03/11/2024 1:28 PM [facility] A/G RATIO 1.4 1.0 - 2.2 03/11/2024 1:28 PM [facility] CALCIUM 9.0 8.7 - 10.5 mg/dL 03/11/2024 1:28 PM AIRFIELD MANAGER [facility] T BILI 0.3 0.2 - 1.2 mg/dL 03/11/2024 1:28 PM AIRFIELD MANAGER [facility] SGOT (AST) 35(H) 5 - 34 U/L 03/11/2024 1:28 PM AIRFIELD MANAGER [facility] SGPT (ALT) 53 0 - 55 U/L 03/11/2024 1:28 PM AIRFIELD MANAGER [facility] ALKALINE PHOSPHATASE 68 40 - 150 U/L 03/11/2024 1:28 PM AIRFIELD MANAGER [facility] IS THE PATIENT REQUIRED TO BE FASTING? No 03/11/2024 1:28 PM AIRFIELD MANAGER [facility] GFR, ESTIMATED >60 >=60 03/11/2024 1:28 PM AIRFIELD MANAGER [facility] Comment: Creatinine Clearance is the preferred criteria for selecting drug dose adjustments in renally impaired patients. ??The GFR is provided as additional pertinent clinical information. GFR is reported in mL/min/1.73 sq m. Calculation based on the Chronic Kidney Disease Epidemiology Collaboration (CKD- EPI) equation refit without adjustment for race. GFR, EST. >60 >=60 024 1:28 PM AIRFIELD MANAGER [facility] GFR, EST. NONAFRICAN >60 >=60 03/11/2024 1:28 PM AIRFIELD MANAGER [facility] Blood Venipuncture / Unknown 03/11/2024 1:02 PM AIRFIELD MANAGER 03/11/2024 1:02 PM AIRFIELD MANAGER us Jose R Pearson MD CHEMISTRY ORDERABLES Fin al Result [facility] [address] [place] [address] * (ABNORMAL) CMP (COMPREHENSIVE METABOLIC PANEL) (02/17/2024 3:40 PM AIRFIELD MANAGER) SODIUM 144 136 - 145 mmol/L 02/17/2024 4:59 PM AIRFIELD MANAGER [facility] POTASSIUM 3.7 3.5 - 5.1 mmol/L 02/17/2024 4:59 PM [facility] CHLORIDE 112(H) 98 - 107 mmol/L 02/17/2024 4:59 PM [facility] CO2, VENOUS 26 22 - 30 mmol/L 02/17/2024 4:59 PM [facility] ANION GAP 9.7 <18.0 mmol/L 02/17/2024 4:59 PM [facility] GLUCOSE 96 70 - 99 mg/dL 02/17/2024 4:59 PM [facility] BUN 8(L) 10 - 20 mg/dL 02/17/2024 4:59 PM [facility] CREATININE, BLOOD 0.68 0.60 - 1.00 mg/dL 02/17/2024 4:59 PM [facility] BUN/CREATININE RATIO 12 - 20 ratio 02/17/2024 4:59 PM [facility] TOTAL PROTEIN 6.3 6.3 - 8.2 g/dL 02/17/2024 4:59 PM [facility] ALBUMIN 3.9 3.5 - 5.0 g/dL 02/17/2024 4:59 PM [facility] A/G RATIO 1.6 1.0 - 2.2 02/17/2024 4:59 PM [facility] CALCIUM 9.1 8.7 - 10.5 mg/dL 02/17/2024 4:59 PM [facility] T BILI 0.2 0.2 - 1.2 mg/dL 02/17/2024 4:59 PM [facility] SGOT (AST) 41(H) 5 - 34 U/L 02/17/2024 4:59 PM [facility] SGPT (ALT) 35 0 - 55 U/L 02/17/2024 4:59 PM [facility] ALKALINE PHOSPHATASE 76 40 - 150 U/L 02/17/2024 4:59 PM [facility] IS THE PATIENT REQUIRED TO BE FASTING? No 02/17/2024 4:59 PM AIRFIELD MANAGER [facility] GFR, ESTIMATED >60 >=60 02/17/2024 4:59 PM AIRFIELD MANAGER [facility] Comment: Creatinine Clearance is the preferred criteria for selecting drug dose adjustments in renally impaired patients. ??The GFR is provided as additional pertinent clinical information. GFR is reported in mL/min/1.73 sq m. Calculation based on the Chronic Kidney Disease Epidemiology Collaboration (CKD- EPI) equation refit without adjustment for race. GFR, EST. >60 >=60 024 4:59 PM AIRFIELD MANAGER [facility] GFR, EST. NONAFRICAN >60 >=60 02/17/2024 4:59 PM AIRFIELD MANAGER [facility] Blood Venipuncture / Unknown 02/17/2024 3:40 PM AIRFIELD MANAGER 02/17/2024 3:40 PM AIRFIELD MANAGER [facility] Giovanna Pearson MD CHEMISTRY ORDERABLES [facility] al Result [facility] [address] [place] [address] * (ABNORMAL) CMP (COMPREHENSIVE METABOLIC PANEL) (01/27/2024 1:02 PM AIRFIELD MANAGER) SODIUM 147(H) 136 - 145 mmol/L 01/27/2024 2:00 PM AIRFIELD MANAGER [facility] POTASSIUM 3.6 3.5 - 5.1 mmol/L 01/27/2024 2:00 PM AIRFIELD MANAGER [facility] CHLORIDE 111(H) 98 - 107 mmol/L 01/27/2024 2:00 PM AIRFIELD MANAGER [facility] CO2, VENOUS 27 22 - 30 mmol/L 01/27/2024 2:00 PM AIRFIELD MANAGER [facility] ANION GAP 12.6 <18.0 mmol/L 01/27/2024 2:00 PM AIRFIELD MANAGER [facility] GLUCOSE 116(H) 70 - 99 mg/dL 01/27/2024 2:00 PM [facility] BUN 7(L) 10 - 20 mg/dL 01/27/2024 2:00 PM [facility] CREATININE, BLOOD 0.74 0.60 - 1.00 mg/dL 01/27/2024 2:00 PM [facility] BUN/CREATININE RATIO 9(L) 12 - 20 ratio 01/27/2024 2:00 PM [facility] TOTAL PROTEIN 6.1(L) 6.3 - 8.2 g/dL 01/27/2024 2:00 PM [facility] ALBUMIN 3.8 3.5 - 5.0 g/dL 01/27/2024 2:00 PM [facility] A/G RATIO 1.7 1.0 - 2.2 01/27/2024 2:00 PM [facility] CALCIUM 9.7 8.7 - 10.5 mg/dL 01/27/2024 2:00 PM [facility] T BILI 0.5 0.2 - 1.2 mg/dL 01/27/2024 2:00 PM [facility] SGOT (AST) 17 5 - 34 U/L 01/27/2024 2:00 PM [facility] SGPT (ALT) 12 0 - 55 U/L 01/27/2024 2:00 PM [facility] ALKALINE PHOSPHATASE 52 40 - 150 U/L 01/27/2024 2:00 PM [facility] IS THE PATIENT REQUIRED TO BE FASTING? No 01/27/2024 2:00 PM [facility] GFR, ESTIMATED >60 >=60 01/27/2024 2:00 PM [facility] Comment: Creatinine Clearance is the preferred criteria for selecting drug dose adjustments in renally impaired patients. ??The GFR is provided as additional pertinent clinical information. GFR is reported in mL/min/1.73 sq m. Calculation based on the Chronic Kidney Disease Epidemiology Collaboration (CKD- EPI) equation refit without adjustment for race. GFR, EST. >60 >=60 024 2:00 PM AIRFIELD MANAGER [facility] GFR, EST. NONAFRICAN >60 >=60 01/27/2024 2:00 PM AIRFIELD MANAGER [facility] Blood Venipuncture / Unknown 01/27/2024 1:02 PM AIRFIELD MANAGER 01/27/2024 1:02 PM AIRFIELD MANAGER Jose R Pearson MD CHEMISTRY ORDERABLES Fin al Result [facility] [address] [place] [address] * (ABNORMAL) CMP (COMPREHENSIVE METABOLIC PANEL) (01/06/2024 12:58 PM CDT) SODIUM 140 136 - 145 mmol/L 01/06/2024 1:39 PM CDT [facility] POTASSIUM 3.5 3.5 - 5.1 mmol/L 01/06/2024 1:39 PM CDT [facility] CHLORIDE 105 98 - 107 mmol/L 01/06/2024 1:39 PM CDT [facility] CO2, VENOUS 27 22 - 30 mmol/L 01/06/2024 1:39 PM CDT [facility] ANION GAP 11.5 <18.0 mmol/L 01/06/2024 1:39 PM CDT [facility] GLUCOSE 123(H) 70 - 99 mg/dL 01/06/2024 1:39 PM CDT [facility] BUN 5(L) 10 - 20 mg/dL 01/06/2024 1:39 PM CDT [facility] CREATININE, BLOOD 0.69 0.60 - 1.00 mg/dL 01/06/2024 1:39 PM CDT [facility] BUN/CREATININE RATIO 7(L) 12 - 20 ratio 01/06/2024 1:39 PM CDT [facility] TOTAL PROTEIN 6.1(L) 6.3 - 8.2 g/dL 01/06/2024 1:39 PM CDT [facility] ALBUMIN 3.8 3.5 - 5.0 g/dL 01/06/2024 1:39 PM CDT [facility] A/G RATIO 1.7 1.0 - 2.2 01/06/2024 1:39 PM CDT [facility] CALCIUM 9.3 8.7 - 10.5 mg/dL 01/06/2024 1:39 PM CDT [facility] T BILI 0.5 0.2 - 1.2 mg/dL 01/06/2024 1:39 PM CDT [facility] SGOT (AST) 16 5 - 34 U/L 01/06/2024 1:39 PM CDT [facility] SGPT (ALT) 11 0 - 55 U/L 01/06/2024 1:39 PM CDT [facility] ALKALINE PHOSPHATASE 50 40 - 150 U/L 01/06/2024 1:39 PM CDT [facility] IS THE PATIENT REQUIRED TO BE FASTING? No 01/06/2024 1:39 PM CDT [facility] GFR, ESTIMATED >60 >=60 01/06/2024 1:39 PM CDT [facility] Comment: Creatinine Clearance is the preferred criteria for selecting drug dose adjustments in renally impaired patients. ??The GFR is provided as additional pertinent clinical information. GFR is reported in mL/min/1.73 sq m. Calculation based on the Chronic Kidney Disease Epidemiology Collaboration (CKD- EPI) equation refit without adjustment for race. GFR, EST. >60 >=60 024 1:39 PM CDT [facility] GFR, EST. NONAFRICAN >60 >=60 01/06/2024 1:39 PM CDT [facility] Blood Venipuncture / Unknown 01/06/2024 12:58 PM CDT 01/06/2024 12:58 PM CDT Jose R Giovanna Pearson MD CHEMISTRY ORDERABLES Fin al Result [facility] [address] [place] [address] * (ABNORMAL) CMP (COMPREHENSIVE METABOLIC PANEL) (12/16/2023 1:47 PM CDT) SODIUM 140 136 - 145 mmol/L 12/16/2023 2:36 PM CDT [facility] POTASSIUM 3.8 3.5 - 5.1 mmol/L 12/16/2023 2:36 PM CDT [facility] CHLORIDE 107 98 - 107 mmol/L 12/16/2023 2:36 PM CDT [facility] CO2, VENOUS 26 22 - 30 mmol/L 12/16/2023 2:36 PM CDT [facility] ANION GAP 10.8 <18.0 mmol/L 12/16/2023 2:36 PM CDT [facility] GLUCOSE 102(H) 70 - 99 mg/dL 12/16/2023 2:36 PM CDT [facility] BUN 7(L) 10 - 20 mg/dL 12/16/2023 2:36 PM CDT [facility] CREATININE, BLOOD 0.74 0.60 - 1.00 mg/dL 12/16/2023 2:36 PM CDT [facility] BUN/CREATININE RATIO 9(L) 12 - 20 ratio 12/16/2023 2:36 PM CDT [facility] TOTAL PROTEIN 6.3 6.3 - 8.2 g/dL 12/16/2023 2:36 PM CDT [facility] ALBUMIN 4.1 3.5 - 5.0 g/dL 12/16/2023 2:36 PM CDT [facility] A/G RATIO 1.9 1.0 - 2.2 12/16/2023 2:36 PM CDT [facility] CALCIUM 9.9 8.7 - 10.5 mg/dL 12/16/2023 2:36 PM CDT [facility] T BILI 0.5 0.2 - 1.2 mg/dL 12/16/2023 2:36 PM CDT [facility] SGOT (AST) 29 5 - 34 U/L 12/16/2023 2:36 PM CDT [facility] SGPT (ALT) 24 0 - 55 U/L 12/16/2023 2:36 PM CDT [facility] ALKALINE PHOSPHATASE 67 40 - 150 U/L 12/16/2023 2:36 PM CDT [facility] IS THE PATIENT REQUIRED TO BE FASTING? No 12/16/2023 2:36 PM CDT [facility] GFR, ESTIMATED >60 >=60 12/16/2023 2:36 PM CDT [facility] Comment: Creatinine Clearance is the preferred criteria for selecting drug dose adjustments in renally impaired patients. ??The GFR is provided as additional pertinent clinical information. GFR is reported in mL/min/1.73 sq m. Calculation based on the Chronic Kidney Disease Epidemiology Collaboration (CKD- EPI) equation refit without adjustment for race. GFR, EST. >60 >=60 024 2:36 PM CDT [facility] GFR, EST. NONAFRICAN >60 >=60 12/16/2023 2:36 PM CDT [facility] Blood Venipuncture / Unknown 12/16/2023 1:47 PM CDT 12/16/2023 1:47 PM CDT Jose R Pearson MD CHEMISTRY ORDERABLES Fin al Result [facility] [place] [address] * (ABNORMAL) CMP (COMPREHENSIVE METABOLIC PANEL) (11/25/2023 1:08 PM CDT) SODIUM 144 136 - 145 mmol/L 11/25/2023 2:19 PM CDT [facility] POTASSIUM 3.3(L) 3.5 - 5.1 mmol/L 11/25/2023 2:19 PM CDT [facility] CHLORIDE 109(H) 98 - 107 mmol/L 11/25/2023 2:19 PM CDT [facility] CO2, VENOUS 23 22 - 30 mmol/L 11/25/2023 2:19 PM CDT [facility] ANION GAP 15.3 <18.0 mmol/L 11/25/2023 2:19 PM CDT [facility] GLUCOSE 113(H) 70 - 99 mg/dL 11/25/2023 2:19 PM CDT [facility] BUN 9(L) 10 - 20 mg/dL 11/25/2023 2:19 PM CDT [facility] CREATININE, BLOOD 0.71 0.60 - 1.00 mg/dL 11/25/2023 2:19 PM CDT [facility] BUN/CREATININE RATIO 13 12 - 20 ratio 11/25/2023 2:19 PM CDT [facility] TOTAL PROTEIN 6.1(L) 6.3 - 8.2 g/dL 11/25/2023 2:19 PM CDT [facility] ALBUMIN 4.0 3.5 - 5.0 g/dL 11/25/2023 2:19 PM T [facility] A/G RATIO 1.9 1.0 - 2.2 11/25/2023 2:19 PM CDT [facility] CALCIUM 9.4 8.7 - 10.5 mg/dL 11/25/2023 2:19 PM CDT [facility] T BILI 0.5 0.2 - 1.2 mg/dL 11/25/2023 2:19 PM CDT [facility] SGOT (AST) 41(H) 5 - 34 U/L 11/25/2023 2:19 PM CDT [facility] SGPT (ALT) 31 0 - 55 U/L 11/25/2023 2:19 PM CDT [facility] ALKALINE PHOSPHATASE 83 40 - 150 U/L 11/25/2023 2:19 PM CDT [facility] IS THE PATIENT REQUIRED TO BE FASTING? No 11/25/2023 2:19 PM CDT [facility] GFR, ESTIMATED >60 >=60 11/25/2023 2:19 PM CDT [facility] Comment: Creatinine Clearance is the preferred criteria for selecting drug dose adjustments in renally impaired patients. ??The GFR is provided as additional pertinent clinical information. GFR is reported in mL/min/1.73 sq m. Calculation based on the Chronic Kidney Disease Epidemiology Collaboration (CKD- EPI) equation refit without adjustment for race. GFR, EST. >60 >=60 024 2:19 PM CDT [facility] GFR, EST. NONAFRICAN >60 >=60 11/25/2023 2:19 PM CDT [facility] Blood Venipuncture / Unknown 11/25/2023 1:08 PM CDT 11/25/2023 1:08 PM CDT Jose R Pearson MD CHEMISTRY ORDERABLES Fin al Result [facility] [place] [address] * (ABNORMAL) CMP (COMPREHENSIVE METABOLIC PANEL) (11/04/2023 1:03 PM CDT) SODIUM 144 136 - 145 mmol/L 11/04/2023 1:58 PM CDT [facility] POTASSIUM 3.8 3.5 - 5.1 mmol/L 11/04/2023 1:58 PM CDT [facility] CHLORIDE 114(H) 98 - 107 mmol/L 11/04/2023 1:58 PM CDT [facility] CO2, VENOUS 23 22 - 30 mmol/L 11/04/2023 1:58 PM CDT [facility] ANION GAP 10.8 <18.0 mmol/L 11/04/2023 1:58 PM CDT [facility] GLUCOSE 104(H) 70 - 99 mg/dL 11/04/2023 1:58 PM T [facility] BUN 8(L) 10 - 20 mg/dL 11/04/2023 1:58 PM T [facility] CREATININE, BLOOD 0.69 0.60 - 1.00 mg/dL 11/04/2023 1:58 PM [facility] BUN/CREATININE RATIO 12 12 - 20 ratio 11/04/2023 1:58 PM T [facility] TOTAL PROTEIN 5.7(L) 6.3 - 8.2 g/dL 11/04/2023 1:58 PM T [facility] ALBUMIN 3.7 3.5 - 5.0 g/dL 11/04/2023 1:58 PM [facility] A/G RATIO 1.9 1.0 - 2.2 11/04/2023 1:58 PM [facility] CALCIUM 9.0 8.7 - 10.5 mg/dL 11/04/2023 1:58 PM [facility] T BILI 0.3 0.2 - 1.2 mg/dL 11/04/2023 1:58 PM [facility] SGOT (AST) 23 5 - 34 U/L 11/04/2023 1:58 PM [facility] SGPT (ALT) 26 0 - 55 U/L 11/04/2023 1:58 PM [facility] ALKALINE PHOSPHATASE 88 40 - 150 U/L 11/04/2023 1:58 PM [facility] IS THE PATIENT REQUIRED TO BE FASTING? No 11/04/2023 1:58 PM [facility] GFR, ESTIMATED >60 >=60 11/04/2023 1:58 PM [facility] Comment: Creatinine Clearance is the preferred criteria for selecting drug dose adjustments in renally impaired patients. ??The GFR is provided as additional pertinent clinical information. GFR is reported in mL/min/1.73 sq m. Calculation based on the Chronic Kidney Disease Epidemiology Collaboration (CKD- EPI) equation refit without adjustment for race. GFR, EST. >60 >=60 024 1:58 PM CDT [facility] GFR, EST. NONAFRICAN >60 >=60 11/04/2023 1:58 PM CDT [facility] Blood Venipuncture / Unknown 11/04/2023 1:03 PM CDT 11/04/2023 1:03 PM CDT us Jose R Pearson MD CHEMISTRY ORDERABLES Fin al Result [facility] [address] [place] [address] * (ABNORMAL) CBC WITH AUTO DIFFERENTIAL (10/14/2023 2:59 PM CDT) WBC 7.43 4.00 - 12.00 10(3)/mcL 10/14/2023 3:10 PM CDT [facility] RBC 3.88 3.80 - 5.30 10(6)/mcL 10/14/2023 3:10 PM CDT [facility] HEMOGLOBIN (HGB) 11.6(L) 12.0 - 15.8 g/dL 10/14/2023 3:10 PM CDT [facility] HEMATOCRIT (HCT) 34.8(L) 36.0 - 47.0 % 10/14/2023 3:10 PM CDT [facility] MCV 89.7 82.0 - 96.0 fL 10/14/2023 3:10 PM CDT [facility] MCH 29.9 26.0 - 34.0 pg 10/14/2023 3:10 PM CDT [facility] MCHC 33.3 31.0 - 36.0 g/dL 10/14/2023 3:10 PM CDT [facility] PLATELET COUNT 266 140 - 440 10(3)/mcL 10/14/2023 3:10 PM CDT [facility] RDW 12.6 11.8 - 15.5 % 10/14/2023 3:10 PM CDT [facility] MPV 9.2(L) 9.7 - 12.4 fL 10/14/2023 3:10 PM CDT [facility] NEUTROPHILS 90.0(H) 47.0 - 73.0 % 10/14/2023 3:10 PM CDT [facility] LYMPHOCYTES 9.2(L) 18.0 - 42.0 % 10/14/2023 3:10 PM CDT [facility] MONOCYTES 0.7(L) 4.0 - 12.0 % 10/14/2023 3:10 PM CDT [facility] EOSINOPHILS 0.0 0.0 - 5.0 % 10/14/2023 3:10 PM CDT [facility] BASOPHILS 0.1 0.0 - 1.0 % 10/14/2023 3:10 PM CDT [facility] ABSOLUTE NEUTROPHILS 6.69 1.60 - 7.70 10(3)/mcL 10/14/2023 3:10 PM CDT [facility] ABSOLUTE LYMPHOCYTES 0.68(L) 1.30 - 3.20 10(3)/mcL 10/14/2023 3:10 PM CDT [facility] ABSOLUTE MONOCYTES 0.05(L) 0.20 - 1.00 10(3)/mcL 10/14/2023 3:10 PM CDT [facility] ABSOLUTE EOSINOPHIL 0.00 0.00 - 0.40 10(3)/mcL 10/14/2023 3:10 PM CDT [facility] ABSOLUTE BASOPHILS 0.01 0.00 - 0.10 10(3)/[facility] 10/14/2023 3:10 PM CDT [facility] NRBC PER 100 WBC 0 10/14/19 3:10 PM CDT [facility] Blood Sub-Q Port Venou s Access Device (Medi-Port, Implanted Port) / Unknown 10/14/2023 2:59 PM CDT 10/14/2023 2:59 PM CDT us Jose R Pearson MD HEMATOLOGY ORDERABLES Fi nal Result [facility] [address] [place] [address] * (ABNORMAL) CMP (COMPREHENSIVE METABOLIC PANEL) (10/14/2023 2:59 PM CDT) SODIUM 140 136 - 145 mmol/L 10/14/2023 3:35 PM CDT [facility] POTASSIUM 4.0 3.5 - 5.1 mmol/L 10/14/2023 3:35 PM CDT [facility] CHLORIDE 107 98 - 107 mmol/L 10/14/2023 3:35 PM CDT [facility] CO2, VENOUS 22 22 - 30 mmol/L 10/14/2023 3:35 PM CDT [facility] ANION GAP 15.0 <18.0 mmol/L 10/14/2023 3:35 PM CDT [facility] GLUCOSE 194(H) 70 - 99 mg/dL 10/14/2023 3:35 PM CDT [facility] BUN 12 10 - 20 mg/dL 10/14/2023 3:35 PM CDT [facility] CREATININE, BLOOD 0.78 0.60 - 1.00 mg/dL 10/14/2023 3:35 PM CDT [facility] BUN/CREATININE RATIO 15 12 - 20 ratio 10/14/2023 3:35 PM CDT [facility] TOTAL PROTEIN 6.6 6.3 - 8.2 g/dL 10/14/2023 3:35 PM CDT [facility] ALBUMIN 4.1 3.5 - 5.0 g/dL 10/14/2023 3:35 PM CDT [facility] A/G RATIO 1.6 1.0 - 2.2 10/14/2023 3:35 PM CDT [facility] CALCIUM 9.6 8.7 - 10.5 mg/dL 10/14/2023 3:35 PM CDT [facility] T BILI 0.5 0.2 - 1.2 mg/dL 10/14/2023 3:35 PM CDT [facility] SGOT (AST) 31 5 - 34 U/L 10/14/2023 3:35 PM CDT [facility] SGPT (ALT) 44 0 - 55 U/L 10/14/2023 3:35 PM CDT [facility] ALKALINE PHOSPHATASE 99 40 - 150 U/L 10/14/2023 3:35 PM CDT [facility] IS THE PATIENT REQUIRED TO BE FASTING? No 10/14/2023 3:35 PM CDT [facility] GFR, ESTIMATED >60 >=60 10/14/2023 3:35 PM CDT [facility] Comment: Creatinine Clearance is the preferred criteria for selecting drug dose adjustments in renally impaired patients. ??The GFR is provided as additional pertinent clinical information. GFR is reported in mL/min/1.73 sq m. Calculation based on the Chronic Kidney Disease Epidemiology Collaboration (CKD- EPI) equation refit without adjustment for race. GFR, EST. >60 >=60 024 3:35 PM CDT [facility] GFR, EST. 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) documented in this encounter Administered Medications Inactive Administered Medications - up to 3 most recent administrations Medication Order MAR Action Action Date Dose Rate Site alteplase (CATHFLO) injection 2 mg 2 mg, Injection, ONCE, 1 dose, On Fri10/14/23 at 1400Indications:Breast cancer metastasized to axillary lymph node, right (HCC),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) Given 10/14/2023 1:40 PM CDT 2 mg documented in this encounter Additional Health Concerns Assessment Noted Time PHQ-9 Depression Total Score: 0 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
--- OUTSIDE RECORDS SUMMARY | 2024-03-15 01:49 | XMS_ITS | Encounter Summary ---
Author Organization [facility] [employer] [facility] Care Team Providers Care Middle Card Tender Name Role Phone Laurence Luque MD Unavailable Clemencia Bennett MD Unavailable [phone] Iveth Guzman MD Primary Care Provider + [phone] Sony Mcpherson MD Unavailable [phone] Encounter Details Date Type Department Care Team (Latest Contact Info) Description 09/10/2023 Travel Social History Tobacco Use Types Packs/Day [...] Encounters Date Type Department Care Team (Late Contact Info) Description 03/23/2024 1:00 PM AERIAL PLANTING AND CULTIVATION MANAGER [facility] [address] [place] [phone] Jose R Pearson MD [address] [place] [address] Discharge Disposition: Discharged to home or Selfcare 03/23/2024 2:30 PM AERIAL PLANTING AND CULTIVATION MANAGER Appointment [facility] [address] [facility] [place] [address] Jose R Pearson MD [address] [place] [address] Discharge Disposition: Discharged to home or Selfcare 03/30/2024 10:00 AM AERIAL PLANTING AND CULTIVATION MANAGER Office Visit [facility] Oncology Services [address] [place] [address] Jose R Pearson MD [address] [place] [address] Discharge Disposition: Discharged to home or Selfcare 03/30/2024 10:30 AM AERIAL PLANTING AND CULTIVATION MANAGER [facility] [address] [place] [address] Discharge Disposition: Discharged to home or Selfcare 03/31/2024 1:00 PM AERIAL PLANTING AND CULTIVATION MANAGER Clinical Support [facility] Oncology Services [address] [place] [address] Jose R Pearson MD [address] [place] [address] Discharge Disposition: Discharged to home or Selfcare 04/28/2024 1:30 PM AERIAL PLANTING AND CULTIVATION MANAGER Clinical Support [facility] Oncology Services [address] [place] [address] Discharge Disposition: Discharged to home or Selfcare documented as of this encounter Goals Goal Patient Goal Type Associated Problems Recent Progress Patient-Stated? Author Exercise 3x per week (30 min per time) Exercise Chica Louis MD documented as of this encounter Visit Diagnoses Not on filedocumented in this encounter Additional Health Concerns Assessment Noted Time PHQ-9 Depression Total Score: 0 04/01/19 20 9:00 AM AERIAL PLANTING AND CULTIVATION MANAGER documented as of this encounter Care Teams Middle Card Tender Relationship Specialty Start Date End Date Iveth Guzman MD [address] [place] [address] PCP - General Family Medicine 05/02/23 Laurence Luque MD #[address] [address] Consulting Physician General Surgery 02/01/15 Clemencia Bennett MD [address] [place] [address] Family Medicine 01/30/18 Sony Mcpherson MD #[address] [address] Consulting Physician General Surgery 09/08/23 documented as of this encounter
--- OUTSIDE RECORDS SUMMARY | 2024-03-15 01:49 | XMS_ITS | Encounter Summary ---
Author Organization [facility] [employer] [facility] Care Team Providers Care Conche Loader And Unloader Name Role Phone Laurence Luque MD Unavailable Clemencia Bennett MD Unavailable [phone] Iveth Guzman MD Primary Care Provider [phone] Encounter Details Date Type Department Care Team (Latest Contact Info) Description 08/26/2023 Travel Social History Tobacco Use Types Packs/Day [...] st Contact Info) Description 03/23/2024 1:00 PM DOPE FIRER [facility] [address] [place] [address] Jose R Pearson MD [address] [place] [address] Discharge Disposition: Discharged to home or Selfcare 03/23/2024 2:30 PM DOPE FIRER Appointment [facility] [address] [facility] [place] [address] Jose R Pearson MD [address] [place] [address] Discharge Disposition: Discharged to home or Selfcare 03/30/2024 10:00 AM DOPE FIRER Office Visit [facility] Oncology Services [address] [place] [address] Jose R Pearson MD [address] [place] [address] Discharge Disposition: Discharged to home or Selfcare 03/30/2024 10:30 AM DOPE FIRER Lab [facility] [address] [place] [phone] Discharge Disposition: Discharged to home or Selfcare 03/31/2024 1:00 PM DOPE FIRER Clinical Support [facility] On[facility] Services [address] [place] [address] Jose R Pearson MD [address] [place] [address] Discharge Disposition: Discharged to home or Selfcare 04/28/2024 1:30 PM DOPE FIRER Clinical Support [facility] Services [address] [place] [address] Discharge Disposition: Discharged to home or Selfcare documented as of this encounter Goals Goal Patient Goal Type Associated Problems Recent Progress Patient-Stated? Author Exercise 3x per week (30 min per time) Exercise Chica Louis MD documented as of this encounter Visit Diagnoses Not on filedocumented in this encounter Additional Health Concerns Assessment Noted Time PHQ-9 Depression Total Score: 0 04/01/19 20 9:00 AM DOPE FIRER documented as of this encounter Care Teams Conche Loader And Unloader Relationship Specialty Start Date End Date Iveth Guzman MD [address] [place] [address] PCP - General Family Medicine 05/02/23 Laurence Luque MD #[address] [address] Consulting Physician General Surgery 02/01/15 Clemencia Bennett MD [address] [place] [address] Family Medicine 01/30/18 documented as of this encounter
--- OUTSIDE RECORDS SUMMARY | 2024-03-15 01:49 | XMS_ITS | Encounter Summary ---
Author Organization [facility] Address [address] 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 Preop/Pacu II [address] [place] [address] Sony Mcpherson MD #[address] [address] Discharge Disposition: Discharged to home or Selfcare [...] Sign Reading Time Taken Comments Blood Pressure 174/79 09/23/2023 12:45 PM CDT Pulse 54 09/23/2023 12:45 PM CDT Temperature 36.1 ??C (97 ??F) 09/23/2023 12: 45 PM CDT Respiratory Rate 16 09/23/2023 12:4 5 PM CDT Oxygen Saturation 99% 09/23/2023 12: 45 PM CDT Inhaled Oxygen Concentration - - Weight 71.6 kg (157 lb 14.4 oz) 09/23/2023 8:01 AM CDT Height 154.9 cm (5' 1 ) 09/23/2023 8:01 AM CDT Body Mass Index 29.83 09/23/2023 8:01 AM CDT documented in this encounter Discharge Instructions * Discharge Instructions* Asia Hernández RN - 09/23/2023 11:26 AM CDT You can take Tylenol for pain. Ok to shower, remove transparent dressing in 2-3 days. The Steri-Strips, little bandages underneath, will fall off on their own. You don't have to see me again unless you are having problems with your wound. GENERAL GUIDELINES FOR MINIMIZING NAUSEA: Do not take pain medication on an empty stomach Eat small portions of foods because they are easier to digest and move through your stomach much faster. Be sure you are staying hydrated. Clear, cool beverages are recommended. Only take what you can tolerate. You might like trying clear soups, flavored gelatin, carbonated beverages, popsicles and ice cubes made of frozen drinks. Avoid the smells of cooking food, especially greasy ones, as the smells make make you nauseated. * Attachments The following attachments cannot be sent through Care Everywhere. * Implanted Port Insertion Care After (Eritrean) documented in this encounter Medications at Time of Discharge Cholecalciferol (Vitamin D) 2000 UNIT Tablet Take 1 Tablet by mouth daily. Multiple Vitamin (MULTI-VITAMIN PO) Take 1 Tab [...] 10/30/19 24 documented as of this encounter H&P Notes * Sony Mcpherson MD - 09/23/2023 10:06 AM CDT We will proceed to the operative room for MediPort insertion left possible right with fluoroscopy and ultrasound guidance. Risks, benefits and alternatives of the procedure have been discussed with the patient. No changes in H&P for or. Source Note - Sony Mcpherson MD - 09/08/2023 2:00 PM CDT HISTORY AND PHYSICAL Assessment: New consult for port placement History of breast cancer, status post bilateral mastectomy done in 2013 GERD Hypertension PLAN: A very detailed discussion was held with the patient in the presence of the breast navigator in [facility]. I explained in detail to the patient what a MediPort is, I showed her pictures from [employer]. We reviewed the steps of surgery, the recovery process etc. we discussed risks which include but are not limited to bleeding, infection, injury to structures, benefits and alternatives were also addressed. Surgical order was placed. We will perform placement in the left side. Total time spent on this encounter on this date of service, including pre-visit review of separately obtained history, [id number] interaction performing medically appropriate physical exam, patientcounseling/education, interpretation of diagnostic results, care coordination and documentation was45 minutes. Subjective: HPI: Angie Reed is a 53 y.o. female who I was asked to see by Iveth Guzman MD for port placement. She is a very pleasant lady that comes to see me to the office today, she has history of GERD, high blood pressure, breast cancer, she has been followed in our institution by Dr. Pearson, she presents with a recurrent breast cancer after bilateral mastectomies with involvement of the chest wall and axillary lymph nodes. She was sent to me for placement of MediPort. She has not on any anticoagulation. She never had a MediPort before. She denies any history of DVT. 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 Current Outpatient Medications on File Prior to Visit Medication Sig Dispense Refill atorvastatin (LIPITOR) 10 MG Tablet Take 1 tablet by mouth once daily 90 Tablet 0 LORazepam (ATIVAN) 0.5 MG Tablet Take 1 Tablet by mouth every 8 hours as needed for Anxiety. 30 Tablet 0 metoprolol tartrate (LOPRESSOR) 25 MG Tablet Take 1 tablet by mouth twice daily (Patient taking differently: 2 times daily.) 180 Tablet 0 Multiple Vitamin (MULTI-VITAMIN PO) Take 1 Tab by mouth daily. triamcinolone (KENALOG) 0.1 % Cream Application Site:apply sparingly bid to affected area 45 g 2 No current facility-administered medications on file prior to visit. Past Medical History Positives Diagnosis Date Breast cancer (HCC) Carcinoma (HCC) 2013 bilateral, right was cancer and left calcium GERD (gastroesophageal reflux disease) HTN (hypertension) Past Surgical History: Procedure Laterality Date BREAST BIOPSY Right 08/20/2023 FERNANDA US GUIDANCE AND CORE BREAST BIOPSY RIGHT 08/20/[address] [facility] ULTRASOUND COLONOSCOPY N/A 09/30/2018 Procedure: COLONOSCOPY - HEMORRHOIDS, NEGATIVE TERMINAL ILEUM; Surgeon: Patrice Hickman DO; Location: [facility] GI [facility]; Service: Gastroenterology MASTECTOMY Bilateral 2013 TUBAL LIGATION Family History Problem Relation Age of Onset Congestive Heart Failure Mother Heart Attack Father Ovarian Cancer Half-Sister Social History Socioeconomic History Marital status: Spouse name: Not on file Number of children: Not on file Years of education: Not on file Highest education level: 12th grade Occupational History Not on file Tobacco Use Smoking status: Never Smokeless tobacco: Never Vaping Use Vaping status: Never Used Substance and Sexual Activity Alcohol use: Yes Alcohol/week: 0.0 oz Comment: rarely Drug use: No Sexual activity: Not on file Other Topics Concern Not on file Social History Narrative Not on file Social Determinants of Health Financial Resource Needs: Not on file Food Insecurity Needs: Not on file Transportation Needs: Not on file Physical Activity: Not on file Stress: Not on file Social Integration: Not on file Intimate Partner Violence: Not on file Housing Stability: Not on file Review of Systems: Review of Systems All other systems reviewed and are negative. Pertinent items are noted in HPI. All other systems were reviewed and were negative. Objective: VITALS: BP 136/76 (BP Location: Right Arm, BP Position: Sitting, BP Cuff Size: Regular) Pulse 61 Temp 96.8 ??F (36 ??C) (Temporal) Ht 5' 1 (1.549 m) Wt 163 lb (73.9 kg) LMP 05/22/2018 (Approximate) SpO2 100% BMI 30.80 kg/m?? Physical Exam Vitals and nursing note reviewed. Exam conducted with a water resource agent present. Constitutional: Appearance: Normal appearance. HENT: Head: Normocephalic and atraumatic. Right Ear: External ear normal. Left Ear: External ear normal. Nose: Nose normal. Mouth/Throat: Mouth: Mucous membranes are moist. Pharynx: Oropharynx is clear. Eyes: Extraocular Movements: Extraocular movements intact. Conjunctiva/sclera: Conjunctivae normal. Pupils: Pupils are equal, round, and reactive to light. Cardiovascular: Rate and Rhythm: Normal rate and regular rhythm. Pulses: Normal pulses. Heart sounds: Normal heart sounds. Pulmonary: Effort: Pulmonary effort is normal. Breath sounds: Normal breath sounds. Abdominal: General: Bowel sounds are normal. Palpations: Abdomen is soft. Musculoskeletal: Cervical back: Normal range of motion and neck supple. Skin: General: Skin is warm. Capillary Refill: Capillary refill takes less than 2 seconds. Comments: Chest wall was examined. There was an area of induration with the presence of carcinoma on the previous surgical scar on the right chest. Neurological: General: No focal deficit present. Mental Status: She is alert. Mental status is at baseline. Psychiatric: Mood and Affect: Mood normal. Thought Content: Thought content normal. Judgment: Judgment normal. Data Review: No results for input(s): ALBUMIN , TBIL , BILIRUBIN , ALKALINEPHO , SGOTAST , SGPTALT , TOTALPROTEIN in the last 72 hours. Lab Results Component Value Date WBC 7.36 08/26/2023 HEMOGLOBIN 15.4 08/26/2023 HEMATOCRIT 45.1 08/26/2023 PLATELETCNT 315 08/26/2023 CHOLESTEROL 227 (H) 04/16/2022 TRIGLYCRIDES 139 04/16/2022 HDLCHOLESTE 113.0 04/16/2022 LDL 86 04/16/2022 SGPTALT 32 08/26/2023 SGOTAST 35 (H) 08/26/2023 SODIUM 140 08/26/2023 POTASSIUM 3.8 08/26/2023 CHLORIDE 103 08/26/2023 CREATININE 1.03 (H) 08/26/2023 BUN 11 08/26/2023 CO2VEN 22 08/26/2023 TSH 2.550 04/16/2022 GLUCOSE 104 (H) 08/26/2023 HGBA1C 5.5 04/16/2022 I personally reviewed the above labs and radiological studies (images if available and reports), and agree with the radiologist unless stated above. By: Sony Mcpherson MD, 09/08/2023, 2:11 PM CDT Primary Care Physician: Iveth Guzman MD documented in this encounter Nursing Notes * Miguelito Graves RN - 09/23/2023 11:14 AM CDT WHO Safety Checklist Team Debriefing completed. Additional information discussed during debrief, inrelation to patient specific assessment, includes blood loss, glycemic control, pain management, and venous thromboembolism prophylaxis, as needed. All members of the surgical team participated in the debriefing process, and each records information as applicable in their respective areas of documen tation. documented in this encounter OR Notes * OR Surgeon - Sony Mcpherson MD - 09/23/2023 11:21 AM CDT Patient Name: Angie Reed Patient Location: OR/OR 09/23/2023, 11:21 AM CDT Surgeon(s): Sony Mcpherson MD 1st Scrub: Dino Martins CST-Proofer Bank Runner: Miguelito Graves RN Insole Channeler: Rima Augustine RT(R) (CT) Preoperative diagnosis: need for venous access for chemotherapy, breast cancer Postoperative diagnosis: same Procedure: insertion of mediport, left internal jugular vein with fluoroscopy and ultrasound guidance Anesthesia: MAC with local EBL: 2 mL Fluids: See anesthesia report Blood Transfusion: none UOP: Not recorded Specimen: none Tubes and Drains: none Grafts/Implants: Implants Implants PORT INFUSION 8FR 63CM PWR INJ PLASTIC SINGLE FILLED SMART PORT DETACHED POLY CATH VALVED MRI-3T - [id number] Inventory Item: PORT INFUSION 8FR 63CM PWR INJ PLASTIC SINGLE FILLED SMART PORT DETACHED POLY CATH VALVED MRI-3T Serial no.: [id number] Model/Cat no.: [id number] Implant name: PORT INFUSION 8FR 63CM PWR INJ PLASTIC SINGLE FILLED SMART PORT DETACHED POLY CATH VALVED MRI-3T - [id number] Laterality: Left 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 Date: 05/14/2026 Supplier: Size: Condition: Stable Complications: None Indications: Angie Reed is a 53 y.o. year old female who presents with stage IV breast cancer. The patient was recommended to have a mediport inserted for chemotherapy. Alternatives, benefits, and risks (including but not limited to pain, infection, bleeding, mediport infection, injury to surrounding structures including lungs and vessels, anesthetic risks, DVT, cardiopulmonary events, inability to place the port, pneumothorax) were discussed. The patient understood the above and consent was obtained fora mediport insertion. All questions were answered. Findings: Ultrasound was used in order to localize the left internal jugular vein, the vessel was compressible and free of thrombus. Procedure: The patient was seen in the preop holding area. H&P and consents were verified. Any last minutequestions were answered. Preoperative antibiotics were given. The patient was taken back to the operating room, placed in supine position. SCD's were placed to the lower extremities. Anesthesia was administered. Bovie pad was placed on the thigh. Arms were tucked with sheets and foam. Small neck roll was placed under the neck and upper back. The neck and chest were prepped and draped in a sterilesurgical fashion. The patient was put in trendelenburg. Lidocaine 1% was infiltrated below the leftclavicle. An 18-gauge needle was used to cannulate the internal jugular vein, with ultrasound , thevein was compressible and free of thrombus, and fluoroscopy guidance. A guidewire was placed. Underfluoroscopy, the guidewire was guided into the right atrium. The needle was removed. A stab incision was made under the guidewire with an 11 blade. The chest was infiltrated with local to create a pocket for the port. A 2 cm incision was made and the pocket made. A hemostat was put on the port and put into the pocket, and it was the appropriate size. The proposed tunnel site was numbed. The catheter was flushed. The flush cut end was placed on the tunneling device and the tunneling device was placed from the stab incision by the guidewire and pulled out from the pocket. 2-0 Prolene suture wasthen put into the pocket in the chest wall fascia and threaded to the superior port holes, one on the left and one on the right. The sutures were tagged, but not tied. The dilator and sheath were placed over the guidewire, and the guidewire removed. The dilator was removed, and the catheter was threaded into the introducer. The catheter was placed appropriately under fluoroscopy into the SVC above the right atria. No pneumothorax seen on fluoro. The peel-away sheath was removed and the catheter pulled taut. The catheter was cut in the pocket at 29 cm and grabbed with a gauze. The catheter was then securedon the port and locked. The port was aspirated and flushed with heparinized saline. The 2-0 Prolenesutures to the port were tied. The port sat nicely in the pocket. 10 cc marcaine was injected in the port pocket and incision site. Total lidocaine use was 10 cc. Subcutaneous tissue was reapproximated using 3-0 Vicryl interrupted. Skin was reapproximated using 4-0 Monocryl in running subcuticular,continuous fashion. The port was felt and accessed, aspirated, and flushed with heparinized saline and then heplock. Steri-Strips and Tegaderm applied. Patient tolerated the procedure well. All counts were accurate for laps, sponges, needles, and instruments. By: Sony Mcpherson MD; 09/23/2023, 11:24 AM CDT documented in this encounter Miscellaneous Notes * Plan of Care - Asia Hernández RN - 09/23/2023 12:32 PM CDT Patient having mild soreness since back from surgery. Ice being used at site for comfort. Patient given Acetaminophen 650 mg for discomfort. Patient and given discharge instructions with understanding stated. Patient will be taken to her 's car in a wheelchair for her to drive her home. * PatientPass Patient Instructions - Asia Hernández RN - 09/23/2023 11:51 AM CDT Images from the original note were not included. Patient Education Table of Contents Implanted Port Insertion, Care After To view videos and all your education online visit, [email or web address] or scan this QR code with your smartphone. Access to this content will in one year. Implanted Port Insertion, Care After The following information offers guidance on how to care for yourself after your procedure. Your health care provider may also give you more specific instructions. If you have problems or questions, contact your health care provider. What can I expect after the procedure? After the procedure, it is common to have: Discomfort at the port insertion site. Bruising on the skin over the port. This should improve over 3?4 days. Follow these instructions at home: Port care After your port is placed, you will get a metal numerical control programmer's information card. The card has informationabout your port. Keep this card with you at all times. Take care of the port as told by your health care provider. Ask your health care provider if you ora family member can get training for taking care of the port at home. ? A home health care nurse will be be available to help care for the port. Make sure to remember what type of port you have. Incision care Follow instructions from your health care provider about how to take care of your port insertion site. Make sure you: ? Wash your hands with soap and water for at least 20 seconds before and after you change your bandage (dressing). If soap and water are not available, use hand nurses medical assistants phlebotomists. ? Change your dressing as told by your health care provider. ? Leave stitches (sutures), skin glue, or adhesive strips in place. These skin closures may need tostay in place for 2 weeks or longer. If adhesive strip edges start to loosen and curl up, you may trim the loose edges. Do not remove adhesive strips completely unless your health care provider tellsyou to do that. Check your port insertion site every day for signs of infection. Check for: ? Redness, swelling, or pain. ? Fluid or blood. ? Warmth. ? Pus or a bad smell. Activity Return to your normal activities as told by your health care provider. Ask your health care provider what activities are safe for you. You may have to avoid lifting. Ask your health care provider how much you can safely lift. General instructions Take fvxw-fws-iarltko and prescription medicines only as told by your health care provider. Do not take baths, swim, or use a hot tub until your health care provider approves. Ask your healthcare provider if you may take showers. You may only be allowed to take sponge baths. If you were given a sedative during the procedure, it can affect you for several hours. Do not drive or operate machinery until your health care provider says that it is safe. Wear a medical alert bracelet in case of an emergency. This will tell any health care providers that you have a port. Keep all follow-up visits. This is important. Contact a health care provider if: You cannot flush your port with saline as directed, or you cannot draw blood from the port. You have a fever or chills. You have redness, swelling, or pain around your port insertion site. You have fluid or blood coming from your port insertion site. Your port insertion site feels warm to the touch. You have pus or a bad smell coming from the port insertion site. Get help right away if: You have chest pain or shortness of breath. You have bleeding from your port that you cannot control. These symptoms may be an emergency. Get help right away. Call 911. Do not wait to see if the symptoms will go away. Do not drive yourself to the hospital. Summary Take care of the port as told by your health care provider. Keep the metal numerical control programmer's information card with you at all times. Change your dressing as told by your health care provider. Contact a health care provider if you have a fever or chills or if you have redness, swelling, or pain around your port insertion site. Keep all follow-up visits. This information is not intended to replace advice given to you by your health care provider. Make sure you discuss any questions you have with your health care provider. Document Released: 2013-12-22 Document Updated: 2021-09-04 Document Reviewed: 2021-09-04 Elsevier Patient Education ? 2023 [employer] * Plan of Care - Meagan Bynum RN - 09/23/2023 10:58 AM CDT Patient will be discharged from PACU when criteria has been met. * Plan of Care - Estefania Hutchinson RN - 09/23/2023 7:52 AM CDT Problem: Adult Inpatient Plan of Care Goal: Plan of Care Review Outcome: Ongoing (see interventions/notes) Flowsheets (Taken 09/23/2023750) Plan of Care Reviewed With: patient family Progress: progress toward functional goals as expected Today's Goal: to discharge home Outcome Evaluation: ready for or Does the patient need assistance with discharge and/or transitioning to the next level of care?: No, no needs anticipated Goal: Optimal Comfort and Wellbeing Outcome: Ongoing (see interventions/notes) Intervention: Provide Person-Centered Care Flowsheets (Taken 09/23/2023750) Trust Relationship/Rapport: care explained choices provided Goal: Readiness for Transition of Care Outcome: Ongoing (see interventions/notes) Intervention: Mutually Develop Transition Plan Flowsheets (Taken 09/23/2023 075) Readmission Within the Last 30 Days: no previous admission in last 30 days Problem: Surgery Nonspecified Goal: Anesthesia/Sedation Recovery Outcome: Ongoing (see interventions/notes) Intervention: Optimize Anesthesia Recovery Flowsheets (Taken 09/23/2023 075) Safety Promotion/Fall Prevention: nonskid shoes/slippers when out of bed low bed * Interdisciplinary - Jenn Duron RN - 09/10/2023 11:00 AM CDT [facility] ADULT TEACHING Patient Name: Angie Reed : 1970 [facility]#: [id number] Person Educated Patient Ready to Learn Yes Teaching Method Phone The Day of Surgery: Call your physician if your physical condition changes (cold, fever, flu). Do not come to the hospital without first calling your physician. Do not eat or drink (no gum, mints, water etc.) unless instructed to do so for at least 8 hours prior to arrival to the hospital. Medications can be taken with a small sip of water. Do not drink any alcohol 24 hours prior to surgery if applicable. Do not smoke for 24 hrs prior to surgery if applicable. Bring CPAP/BIPAP if applicable. Take a shower or bath. Do not apply make-up Wear comfortable, loose fitting clothing Instruction to leave all jewelry at home including wedding/engagement rings or any body piercing jewelry. Leave all valuables at home. Children ages 17 and under must be accompanied by a parent or legal guardian in the hospital at alltimes. Follow your surgeon's instructions for arrival time. If you have questions concerning arrival time,call your surgeon's office. Detailed instructions given for arrival location and parking. Arrange for a responsible person to accompany you, drive you home and stay with you for the first 24 hours following your surgery. If you have not made these arrangements you may be at risk of your surgery being cancelled. Follow directions regarding medications to Take or Hold. It is very important to follow directions from your surgeon's office on Diabetic medication or Blood Thinners. Only 2 adults over the age of 16 will be allowed to accompany you to the [facility]. No children under theage of 16 will be allowed in the [facility] unless they are the patient. If the patient chooses to bring their children under the age of 16, an adult must accompany those children in the surgery waiting room and cannot leave them unattended. During the flu season: refer to the visitation restriction guidelines implemented during that season if applicable. Fall Prevention Teaching The Day of Surgery: Your safety while you are in the hospital is very important to us. Following surgery, you might be at increased risk for falling for several reasons: -The hospital environment is unfamiliar. It???s not the same as being at home -You may be weaker than you realize. -You may be connected to lines or equipment that can cause you to trip. -You may be on medications that make you drowsy or dizzy. We know this can happen especially with pain medication and anesthesia. We want to partner with you in the hospital to make sure you are safe -Please do not feel hesitant to ask for help while in the hospital. You will - need extra help untilyou get stronger especially with walking and using the bathroom. -Pay close attention to what the doctors and nurses tell you about your risk of falling. -A fall can mean a longer hospital stay. Also, injuries from a fall can affect your health for the rest of your life. Some things the nurses may do to keep you safe are: -Have you use the call light for help whenever you get out of bed. 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 documented in this encounter Plan of Treatment Upcoming Encounters Date Type Department Care Team (Late st Contact Info) Description 03/23/2024 1:00 PM TAX ACCOUNTING ASSISTANT Appointment [facility] Cardiology Services [address] [place] [address] Jose R Pearson MD [address] [place] [address] Discharge Disposition: Discharged to home or Selfcare 03/23/2024 2:30 PM TAX ACCOUNTING ASSISTANT Appointment [facility] [address] [place] [address] Jose R Pearson MD [address] [place] [address] Discharge Disposition: Discharged to home or Selfcare 03/30/2024 10:00 AM TAX ACCOUNTING ASSISTANT Office Visit [facility] Oncology Services [address] [place] [address] Jose R Pearson MD [address] [place] [address] Discharge Disposition: Discharged to home or Selfcare 03/30/2024 10:30 AM TAX ACCOUNTING ASSISTANT Lab [facility] Oncology Services [address] [place] [address] Discharge Disposition: Discharged to home or Selfcare 03/31/2024 1:00 PM TAX ACCOUNTING ASSISTANT Clinical Support [facility] Oncology Services [address] [place] [address] Jose R Pearson MD [address] [place] [address] Discharge Disposition: Discharged to home or Selfcare 04/28/2024 1:30 PM TAX ACCOUNTING ASSISTANT Clinical Support [facility] Oncology Services [address] [place] [address] Discharge Disposition: Discharged to home or Selfcare documented as of this encounter Goals Goal Patient Goal Type Associated Problems Recent Progress Patient-Stated? 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 POCT URINE HCG () Routine 09/23/2023 8:08 AM CDT documented in this encounter Results * XR CHEST SINGLE VIEW PORTABLE (09/23/2023 11:43 AM CDT) Anatomical Region Laterality Modality Chest N/A Digital Radiogra phy 09/23/2023 11:4 9 AM CDT Impressions 09/23/2023 11:52 AM CDT IMPRESSION: No acute pulmonary process. Left internal jugular approach Port-A-Cath with tip in the superior vena cava. Narrative 09/23/2023 11:52 AM CDT EXAM DESCRIPTION: XR CHEST SINGLE VIEW PORTABLE REASON FOR STUDY: s/p port placement for chemotherapy for breast cancer- HX bilateral mastectomy, HTN, Right breast cancer ?? TECHNIQUE: 1 ??radiographic view(s) of the chest. COMPARISON: 09/30/2019 FINDINGS: LUNGS: ??No focal opacity, pleural effusion, or pneumothorax. ?? HEART/MEDIASTINUM: ??Cardiac silhouette normal in size. Mediastinal and hilar contours appear normal. LINES/TUBES: ??Left internal jugular approach Port-A-Cath with tip in the superior vena cava. BONES: ??No acute osseous abnormality. THIS IS AN ELECTRONICALLY VERIFIED FINAL REPORT 09/23/2023 11:49 AM - Electronically signed by ??Ole Sánchez M.D. MM: MM D: ??09/23/2023 11:49 AM T: ??09/23/2023 11:49 AM Report ID: [id number] Reading Location: ??[id number] Procedure Note Ole Sánchez MD - 09/23/2023 EXAM DESCRIPTION: XR CHEST SINGLE VIEW PORTABLE REASON FOR STUDY: s/p port placement for chemotherapy for breast cancer- HX bilateral mastectomy, HTN, Right breast cancer TECHNIQUE: 1 radiographic view(s) of the chest. COMPARISON: 09/30/2019 FINDINGS: LUNGS: No focal opacity, pleural effusion, or pneumothorax. HEART/MEDIASTINUM: Cardiac silhouette normal in size. Mediastinal and hilar contours appear normal. LINES/TUBES: Left internal jugular approach Port-A-Cath with tip in the superior vena cava. BONES: No acute osseous abnormality. THIS IS AN ELECTRONICALLY VERIFIED FINAL REPORT 09/23/2023 11:49 AM - Electronically signed by Ole Sánchez M.D. MM: MM Report ID: [id number] Reading Location: [id number] IMPRESSION: No acute pulmonary process. Left internal jugular approach Port-A-Cath with tip in the superior vena cava. us Sony Mcpherson MD IMG DIAGNOSTIC ORDERA BLES Final Result * XR SURGICAL EXAM (09/23/2023 11:17 AM CDT) us Sony Mcpherson MD IMG DIAGNOSTIC ORDERA BLES Final Result * POCT Urine HCG () (09/23/2023 8:08 AM CDT) POC URINE Negative POC URINE CONTROL Cartoon Animator Pass Urine 09/23/2023 8:08 AM CDT us Sony Mcpherson MD POINT OF CARE TESTING (MANUAL) Edited Result - Final documented in this encounter Visit Diagnoses Not on filedocumented in this encounter Administered Medications Inactive Administered Medications - up to 3 most recent administrations Medication Order MAR Action Action Date Dose Rate Site acetaminophen (TYLENOL) tablet 650 mg 650 mg, Oral, EVERY 6 HOURS PRN, Starting on Fri09/23/23 at 1124, Until Fri09/23/23 at 1504, Mild pain or more severe pain if patient requests, Maximum dose of acetaminophen is 4000 mg from all sources in 24 hours. Given 09/23/2023 12:18 PM CDT 650 mg ACETAMINOPHEN 325 MG PO TABS 1 dose, Starting on Fri09/23/23 at 1217, Until Fri09/23/23 at 1504, Created by cabinet override fentaNYL (PF) (SUBLIMAZE) injection 25 mcg 25 mcg, Intravenous, EVERY 10 MIN PRN, 4 doses, Starting on Fri09/23/23 at 1045, Until Fri09/23/23 at 1330, Moderate pain or more severe pain if patient requests, Severe pain, Every 5-15 minutes prn to maximum of 100 mcg., PACU (I & II) lactated ringers infusion at 20 mL/hr, Intravenous, CONTINUOUS, Starting on Fri09/23/23 at 0830, Until Fri09/23/23 at 1504, PRE-OP (SURGERY) New Bag 09/23/2023 8:12 AM CDT 20 mL/hr 20 mL/hr ondansetron (ZOFRAN) injection 4 mg 4 mg, Intravenous, ONCE PRN, 1 dose, Starting on Fri09/23/23 at 1045, Until Fri09/23/23 at 1504, Nausea - 1st line, First Line Antiemetic, PACU (I & II) documented in this encounter Active and Recently Administered Medications Times are shown in CDT. Scheduled Medication Order 09/21/2023 09/22/2023 09/23/2023 ceFAZolin (ANCEF) injection 1 g (COMPLETED) 1 g, Intravenous, ONCE, 1 dose, On Fri09/23/23 at 0830, INTRA-OP, Indications: Perioperative Pharmacoprophylaxis 1042 (Given - Provid er: Dexter Crowell APRN, LEONARDO) Continuous Medication Order 09/21/2023 09/22/2023 09/23/2023 lactated ringers infusion at 20 mL/hr, Intravenous, CONTINUOUS, Starting on Fri09/23/23 at 0830, Until Fri09/23/23 at 1504, PRE-OP (SURGERY) 0812 (New Bag - Prov ider: Estefania Hutchinson RN)1030 (Continued by Anesthesia - Provider: Dexter Crowell APRN, LEONARDO)1153 (Stopped - Provider: Meagan Bynum RN) PRN Medication Order 09/21/2023 09/22/2023 09/23/2023 acetaminophen (TYLENOL) tablet 650 mg 650 mg, Oral, EVERY 6 HOURS PRN, Starting on Fri09/23/23 at 1124, Until Fri09/23/23 at 1504, Mild pain or more severe pain if patient requests, Maximum dose of acetaminophen is 4000 mg from all sources in 24 hours. 1218 (Given - Provid er: Asia Hernández RN) bupivacaine (MARCAINE) 0.5 % injection (CANCELED) ONCE (in OR), Starting on Fri09/23/23 at 1058, Until Fri09/23/23 at 1122, INTRA-OP 1058 (Given - Provid er: Sony Mcpherson MD) fentaNYL (PF) (SUBLIMAZE) injection 25 mcg 25 mcg, Intravenous, EVERY 10 MIN PRN, 4 doses, Starting on Fri09/23/23 at 1045, Until Fri09/23/23 at 1330, Moderate pain or more severe pain if patient requests, Severe pain, Every 5-15 minutes prn to maximum of 100 mcg., PACU (I & II) HEParin (porcine) injection (CANCELED) ONCE (in OR), Starting on Fri09/23/23 at 1058, Until Fri09/23/23 at 1122, INTRA-OP 1058 (Given - Provid er: Sony Mcpherson MD - Comment: MIXED IN 5ML OF NACL) lidocaine (PF) 1 % injection (CANCELED) ONCE (in OR), Starting on Fri09/23/23 at 1059, Until Fri09/23/23 at 1122, INTRA-OP 1059 (Given - Provid er: Sony Mcpherson MD) ondansetron (ZOFRAN) injection 4 mg 4 mg, Intravenous, ONCE PRN, 1 dose, Starting on Fri09/23/23 at 1045, Until Fri09/23/23 at 1504, Nausea - 1st line, First Line Antiemetic, PACU (I & II) No Frequency Medication Order 09/21/2023 09/22/2023 09/23/2023 ACETAMINOPHEN 325 MG PO TABS 1 dose, Starting on Fri09/23/23 at 1217, Until Fri09/23/23 at 1504, Created by cabinet override documented in this encounter Additional Health Concerns Assessment Noted Time PHQ-9 Depression Total Score: 0 04/01/19 20 9:00 AM TAX ACCOUNTING ASSISTANT documented as of this encounter Care Teams Planograph Operator Relationship Specialty Start Date End Date Iveth Guzman MD [address] [place] [address] PCP - General Family Medicine 05/02/23 Laurence Luque MD [address] [address] [place] [address] Consulting Physician General Surgery 02/01/15 Clemencia Bennett MD [address] [place] [address] Family Medicine 01/30/18 Sony Mcpherson MD [address] [facility] [address] [place] [address] Consulting Physician General Surgery 09/08/23 documented as of this encounter
--- OUTSIDE RECORDS SUMMARY | 2024-03-15 01:49 | XMS_ITS | Encounter Summary ---
Author Organization [facility] Address [address] [place] [address] Phone Care Team Providers Care Table Inspector Name Role Phone Laurence Luque MD Unavailable Clemencia Bennett MD Unavailable Iveth Guzman MD Primary Care Provider [phone] Sony Mcpherson MD Unavailable Jose R Pearson MD Unavailable [phone] Reason for Visit * Reason Comments Follow-up Encounter Details Date Type Department Care Team (Late st Contact Info) Description 10/02/2023 10:40 AM CDT Office Visit [facility] Oncology Services [address] [place] [phone] Jose R Pearson MD [address] [place] [address] Breast cancer metastasized to axillary lymph node, right (HCC) (Primary Dx); History of bilateral mastectomy; 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); Recurrent malignant neoplasm of right breast (HCC) Discharge Disposition: Discharged to home [...] Sign Reading Time Taken Comments Blood Pressure 118/80 10/02/2023 10:54 AM CDT Pulse 74 10/02/2023 10:54 AM CDT Temperature 36.3 ??C (97.4 ??F) 10/02/2023 10:54 AM C DT Respiratory Rate 18 10/02/2023 10:54 AM CDT Oxygen Saturation 98% 10/02/2023 10:54 AM CDT Inhaled Oxygen Concentration - - Weight 69.4 kg (153 lb) 10/02/2023 10:54 AM CDT Height 154.9 cm (5' 1 ) 10/02/2023 10:54 AM CDT Body Mass Index 28.91 10/02/2023 10:54 AM CDT documented in this encounter Progress Notes * Jose R Pearson MD - 10/02/2023 10:40 AM CDT Outpatient Hem/Onc Progress Note INTERVAL HISTORY: Angie Reed is a 53 y.o. female seen today for follow up of metastatic breast cancer. Received first cycle of chemotherapy last week. Tolerated it well. Fatigue for few days after. [...] to sleep well. No new neurological symptoms. BRIEF ONCOLOGY SUMMARY: Recurrent metastatic invasive ductal [...] axilla biopsy: pathology confirmed invasive ductal carcinoma, ER/WY positive, Ki67 strong at 80%, with HER2 [...] ductal carcinoma measuring 11mm, 7mm, and 5mm. ER/WY strongly positive in all tumors that were [...] UNIT Tablet dexamethasone (DECADRON) 4 MG Tablet LORazepam (ATIVAN) 0.5 MG Tablet metoprolol tartrate (LOPRESSOR) 25 MG Tablet Multiple Vitamin (MULTI-VITAMIN PO) OLANZapine (ZYPREXA) 5 MG Tablet ondansetron (ZOFRAN) 8 MG Tablet prochlorperazine (COMPAZINE) 10 MG Tablet triamcinolone (KENALOG) 0.1 % Cream Allergies as of 10/02/2023 (No Known Allergies) REVIEW OF SYSTEMS: Review [...] DATA: Lab Results Component Value Date WBC 8.55 09/24/2023 RBC 4.82 09/24/2023 HEMOGLOBIN 14.4 09/24/2023 HEMATOCRIT 42.8 09/24/2023 MCV 88.8 09/24/2023 MCH 29.9 09/24/2023 MCHC 33.6 09/24/2023 PLATELETCNT 265 09/24/2023 RDW 12.1 09/24/2023 LYMPHOCYTES 11.1 (L) 09/24/2023 RELEOS 0.0 09/24/2023 RELBAS 0.1 09/24/2023 ANC 7.44 09/24/2023 MONOCYTES 0.15 (L) 09/24/2023 EOSINOPHILS 0.00 09/24/2023 BASOPHILS 0.01 09/24/2023 Lab Results Component Value Date SODIUM 141 09/24/2023 POTASSIUM 3.7 09/24/2023 CHLORIDE 107 09/24/2023 ANIONGAP 15.7 09/24/2023 GLUCOSE 208 (H) 09/24/2023 BUN 13 09/24/2023 CREATININE 0.88 09/24/2023 TOTALPROTEIN 7.5 09/24/2023 ALBUMIN 4.4 09/24/2023 CALCIUM 9.8 09/24/2023 SGPTALT 22 09/24/2023 ALKALINEPHO 81 09/24/2023 DIAGNOSTIC IMAGING STUDIES: PET scan 09/17/23 IMPRESSION: [...] 65% Assessment: Metastatic breast cancer, ER and WY positive, HER2 demetra positive by FISH Bone mets Diarrhea due to chemo Bone pains after chemo Plan: 1. Reviewed above clinical data including recent symptoms,and labs. Clinical improvement in chest wall after first chemo. Reassurance given. Continue current regimen of TCHP for 4-6 cycles as tolerated. Discussed diagnosis, treatment options and prognostic implication of disease. 2. Obtain CT chest a P after 4 cycles 3. ECHO every 3 months 4. Zofran and compazine prn nausea. Imodium PRN diarrhea 5. Continue active physical routine. 6. Start Xgeva 120 mg SQ every 6 weeks for bone mets. She is edentulous. Start Calcium 600 mg PO daily Labs every 3 weeks, FU In 4-5 weeks The patient was given an opportunity to ask questions, and all questions answered to patient's satisfaction. Patient verbalizes understanding of the plan as outlined above. Jose R Pearson MD documented in this encounter Miscellaneous Notes * Interdisciplinary - Alanna Rincon CMA - 10/02/2023 10:40 AM CDT Pt states she is doing good with no pain or complaints at this time * Interdisciplinary - Alanna Rincon CMA - 10/02/2023 10:40 AM CDT Pt has a 5 week follow up with no further question at this time documented in this encounter Plan of Treatment Upcoming Encounters Date Type Department Care Team (Late st Contact Info) Description 03/23/2024 1:00 PM GARDENING MANAGER [facility]ment [facility] [address] [place] [address] Jose R Pearson MD [address] [place] [address] Discharge Disposition: Discharged to home or Selfcare 03/23/2024 2:30 PM GARDENING MANAGER [facility] [address] [place] [address] Jose R Pearson MD [address] [place] [address] Discharge Disposition: Discharged to home or Selfcare 03/30/2024 10:00 AM GARDENING MANAGER Office Visit [facility] Oncology Services [address] [place] [address] Jose R Pearson MD [address] [place] [address] Discharge Disposition: Discharged to home or Selfcare 03/30/2024 10:30 AM GARDENING MANAGER Lab [facility] Oncology Services [address] [place] [address] Discharge Disposition: Discharged to home or Selfcare 03/31/2024 1:00 PM GARDENING MANAGER Clinical Support [facility] Oncology Services [address] [place] [address] Jose R Pearson MD [address] [place] [address] Discharge Disposition: Discharged to home or Selfcare 04/28/2024 1:30 PM GARDENING MANAGER Clinical Support [facility] Oncology Services [address] [place] [address] Discharge Disposition: Discharged to home or Selfcare documented as of this encounter Goals Goal Patient Goal Type Associated Problems Recent Progress Patient-Stated? 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) Recurrent malignant neoplasm of right breast (HCC) documented in this encounter Additional Health Concerns Assessment Noted Time PHQ-9 Depression Total Score: 0 04/01/19 20 9:00 AM GARDENING MANAGER documented as of this encounter Care Teams Table Inspector Relationship Specialty Start Date End Date Iveth Guzman MD [address] [place] [address] PCP - General Family Medicine 05/02/23 Laurence Luque MD [address] [facility] [address] [place] [phone] Consulting Physician General Surgery 02/01/15 Clemencia Bennett MD [address] [place], [place] [id number] Family Medicine 01/30/18 Sony Mcpherson MD [address] [phone] Consulting Physician General Surgery 09/08/23 Jose R Pearson MD [address] [place] [address] Consulting Physician Medical Oncology 10/02/23 documented as of this encounter
--- OUTSIDE RECORDS SUMMARY | 2024-03-15 01:49 | XMS_ITS | Encounter Summary ---
Author Organization [facility] Address [address] [place] [address] Phone Care Team Providers Care [employer] Hat Linux Administrator Name Role Phone Laurence Luque MD Unavailable [phone] Clemencia Bennett MD Unavailable [phone] Iveth Guzman MD Primary Care Provider [phone] Sony Mcpherson MD Unavailable Jose R Pearson MD Unavailable [phone] Reason for Visit * Reason Onset Date Comments Appointment 10/03/2023 Encounter Details Date Type Department Care Team (Late st Contact Info) Description 10/03/2023 Telephone [facility] [address] [place] [address] Iveth Aragon, [place] Appointment Social History Tobacco Use Types Packs/Day Years [...] encounter Miscellaneous Notes * Telephone Encounter - Iveth Aragon, PT - 10/03/2023 3:11 PM CDT From:Angie Reed Sent:10/02/2023 9:40 AM CDT To:[facility] Subject:Appointment canceled Appointment canceled for Angie Reed ([id number]) Visit type: LYMPHEDEMA TREAT 10/03/2023 3:00 PM (60 minutes) with Iveth in [facility] Reason for cancellation: Cancelled Via [facility] documented in this encounter Plan of Treatment Upcoming Encounters Date Type Department Care Team (Late st Contact Info) Description 03/23/2024 1:00 PM SHREDDED FILLER MACHINE WRAPPER LAYER Appointment [facility] Cardiology Services [address] [place] [address] Jose R Pearson MD [address] [place] [address] Discharge Disposition: Discharged to home or Selfcare 03/23/2024 2:30 PM SHREDDED FILLER MACHINE WRAPPER LAYER Appointment [facility] [address] [place] [address] Jose R Pearson MD [address] [place] [address] Discharge Disposition: Discharged to home or Selfcare 03/30/2024 10:00 AM SHREDDED FILLER MACHINE WRAPPER LAYER Office Visit [facility] Oncology Services [address] [place] [address] Jose R Pearson MD [address] [place] [address] Discharge Disposition: Discharged to home or Selfcare 03/30/2024 10:30 AM SHREDDED FILLER MACHINE WRAPPER LAYER Lab [facility] Oncology Services [address] [place] [address] Discharge Disposition: Discharged to home or Selfcare 03/31/2024 1:00 PM SHREDDED FILLER MACHINE WRAPPER LAYER Clinical Support [facility] Oncology Services [address] [place] [phone] [place] [address] [place] [address] Discharge Disposition: Discharged to home or Selfcare 04/28/2024 1:30 PM SHREDDED FILLER MACHINE WRAPPER LAYER Clinical Support [facility] Oncology Services [address] [place] [address] Discharge Disposition: Discharged to home [...] Total Score: 0 04/01/19 20 9:00 AM SHREDDED FILLER MACHINE WRAPPER LAYER documented as of this encounter Care Teams [employer] Linux Administrator Relationship Specialty Start Date End Date Iveth Guzman MD [address] [place] [address] PCP - General Family Medicine 05/02/23 Laurence Luque MD [address] [phone] Consulting Physician General Surgery 02/01/15 Clemencia Bennett MD [address] [place] [address] Family Medicine 01/30/18 Soyn Mcpherson MD [id number] [address] Consulting Physician General Surgery 09/08/23 Jose R Pearson MD [address] [place] [address] Consulting Physician Medical Oncology 10/02/23 documented as of this encounter
--- OUTSIDE RECORDS SUMMARY | 2024-03-15 01:49 | XMS_ITS | Encounter Summary ---
Author Organization [facility] Address [address] [place] [address] Phone Care Team Providers Care Plant Anatomist Name Role Phone Laurence Luque MD Unavailable Clemencia Bennett MD Unavailable [phone] Iveth Guzman MD Primary Care Provider [phone] Reason for Referral * Radiology Services (Less Than 2 Weeks) - Closed Specialty Diagnoses / Procedures Referred By Martin laguna Referred To Contact Radiology Diagnoses Recurrent malignant neoplasm of right breast (HCC) Procedures CT CHEST ABDOMEN AND PELVIS W CONTRAST Jose R Pearson MD [address] [place] [address] Phone: tel: fax: Referral ID Status Reason Start Date Expiration Date Visits Re quested Visits Authorized [id number] Closed 08/26/2023 1 1 Reason for Visit * Radiology Services (Less Than 2 Weeks) - Closed Specialty Diagnoses / Procedures Referred By Martin laguna Referred To Contact Radiology Diagnoses Recurrent malignant neoplasm of right breast (HCC) Procedures CT CHEST ABDOMEN AND PELVIS W CONTRAST Jose R Pearson MD [address] [place] [address] Phone: tel: fax: Referral ID Status Reason Start Date Expiration Date Visits Re quested Visits Authorized [id number] Closed 08/26/2023 1 1 Encounter Details Date Type Department Care Team (Latest Contact Info) Description 09/01/2023 9:33 AM CDT - 09/01/2023 12:44 PM CDT Hospital [facility] [address] [place] [address] Jose R eParson MD [address] [place] [address] Discharge Disposition: Discharged to home or Selfcare [...] st Contact Info) Description 03/23/2024 1:00 PM EDUCATION INTERN Appointment [facility] Cardiology Services [address] [place] [address] Jose R Pearson MD [address] [place] [address] Discharge Disposition: Discharged to home or Selfcare 03/23/2024 2:30 PM EDUCATION INTERN Appointment [facility] [address] [place] [address] Jose R Pearson MD [address] [place] [address] Discharge Disposition: Discharged to home or Selfcare 03/30/2024 10:00 AM EDUCATION INTERN Office Visit [facility] Oncology Services [address] [place] [address] Jose R Pearson MD [address] [place] [address] Discharge Disposition: Discharged to home or Selfcare 03/30/2024 10:30 AM EDUCATION INTERN Lab [facility]cology Services [address] [place] [address] Discharge Disposition: Discharged to home or Selfcare 03/31/2024 1:00 PM EDUCATION INTERN Clinical Support [facility]cology Services [address] [place] [address] Jose R Pearson MD [address] [place] [address] Discharge Disposition: Discharged to home or Selfcare 04/28/2024 1:30 PM EDUCATION INTERN Clinical Support [facility] Oncology Services [address] [place] [address] Discharge Disposition: Discharged to home or Selfcare documented as of this encounter Goals Goal Patient Goal Type Associated Problems Recent Progress Patient-Stated? Author Exercise 3x per week (30 min per time) Exercise No Chica Saldana MD documented as of this encounter Procedures Procedure Name Priority Date/Time Associated Diagnosis Comments CT CHEST ABDOMEN AND PELVIS W CONTRAST Less Than 2 weeks 09/01/2023 9:56 AM CDT Recurrent malignant neoplasm of right breast (HCC) documented in this encounter Results * CT CHEST ABDOMEN AND PELVIS W CONTRAST (09/01/2023 9:56 AM CDT) Anatomical Region Laterality Modality Chest, Abdomen, Pelvis N/A Computed Tomography 09/01/2023 6:03 PM CDT Impressions 09/01/2023 6:05 PM CDT IMPRESSION: 1. ?? Status post bilateral mastectomy with interval development of heterogeneously enhancing lobulated mass in the right chest, infiltrating the pectoralis muscle, consistent with malignancy. 2. ?? Bilateral axillary lymphadenopathy, consistent with metastatic disease. 3. ?? Multiple bilateral pulmonary nodules may represent metastatic disease. ??Further evaluation and correlation with PET-CT findings. 4. ?? Prominent-enlarged mediastinal/right hilar nodes suspicious for jesse metastatic disease. 5. ?? Sclerotic lesions in the pelvis and left 7th rib and remains stable since 2021. ??Correlate with bone scan and PET-CT findings. 6. ?? No evidence of metastatic disease in the abdomen Narrative 09/01/2023 6:05 PM CDT EXAM DESCRIPTION: CT CHEST ABDOMEN AND PELVIS W CONTRAST REASON FOR STUDY: F/U right breast CA with mets to the lymph nodes - evaluate for mets x 2013. Hx of bilateral masectomy, HTN, GERD, non smoker. ?? TECHNIQUE: CT scan of the chest, [...] IV SOLN ??injected via ?? Intravenous COMPARISON: CT abdomen and pelvis 06/15/2021 FINDINGS: CHEST LUNGS: ?? The central airways are patent. ??Opacity in the right middle lobe likely represent subsegmental atelectasis/scarring. ?? There are new bilateral pulmonary nodules. ??Index nodules include: 10 mm bilobed perifissural nodule in the right upper lobe (4/40) 5 mm nodule in the anteromedial left upper lobe (4/56), 8 mm perifissural nodule in the left lower lobe (4/70), 3 mm nodule in the right middle lobe (4/64), 6 mm subpleural nodule in the anterior right middle lobe (4/48), 5 mm nodule in the right lower lobe (4/78), 5 mm and 7 mm adjacent medial right lower lobe nodules (4/79, 81), 5 mm medial right lung base nodule (4/98), 5 mm nodule in the left lower lobe (4/71) PLEURA: ?? No effusion. No pneumothorax. MEDIASTINUM/MILO: ?? Prominent-enlarged mediastinal and right hilar nodes. ??Largest is a 1.2 cm prevascular node (). HEART: ?? Heart size is normal with no pericardial effusion. VASCULATURE CHEST: ?? No thoracic aortic aneurysm or dissection. CHEST WALL/AXILLA: ??Postsurgical changes from bilateral mastectomy. ?? There is an ill-defined multilobulated heterogeneously enhancing mass in the right chest infiltrating the pectoralis muscle, measuring up to 9.3 x 2.9 cm with associated skin thickening and retraction, consistent with malignancy. ??Surrounding fat stranding likely represent neoplastic infiltration. Enlarged right axillary lymph nodes including 1.5 cm node containing biopsy clip (). ??Adjacent necrotic right axillary node measures 1.3 cm (2/40). ??There are enlarged right subpectoral lymph nodes measuring up to 10 mm in short axis (/, 22, 20). Within the left chest wall/axillary region, there is a 3.0 x 2.0 cm heterogeneously enhancing lobulated mass which may represent lymph node (/40). ??Other prominent left axillary lymph nodes measuring up to 8 mm (2/34). HARDWARE/LINES/TUBES: ?? None. MUSCULOSKELETAL CHEST: ?? No significant abnormality. ABDOMEN/PELVIS LIVER: ?? Normal size. ??No identified cystic or solid masses. GALLBLADDER: ?? No stones, wall thickening or pericholecystic fluid BILE DUCTS: ?? No intrahepatic or extrahepatic ductal dilatation. SPLEEN: ?? Normal size. ??No focal lesions. PANCREAS: ?? No identified cystic or solid masses. No significant calcifications. No adjacent inflammation or peripancreatic fluid collections. Pancreatic duct not dilated. ?? ADRENALS: ?? Normal. KIDNEYS/URINARY TRACT: ?? No identified significant cystic or solid masses. No visualized stones. No hydronephrosis or hydroureter. Symmetric enhancement. ?Urinary bladder is unremarkable. GI: ?? No dilated bowel loops. No obvious wall thickening. ??Normal appendix. ??No significant diverticular disease. PERITONEUM: ?? No ascites or free air. RETROPERITONEUM: ?? No mass or adenopathy. REPRODUCTIVE: ?? No significant abnormality. VASCULATURE ABDOMEN: ?? No abdominal aortic aneurysm. MUSCULOSKELETAL ABDOMEN PELVIS: ?? Sclerotic lesions in the pelvis and left anterior 7th rib () are stable since 2021. ??Correlate with whole-body bone scan findings. OTHER: ?? No significant abnormality. THIS IS AN ELECTRONICALLY VERIFIED FINAL REPORT 09/01/2023 6:03 PM - Electronically signed by ??Elizabeth Ramirez M.D. FT: FT D: ??09/01/2023 6:03 PM T: ??09/01/2023 6:03 PM Report ID: [id number] Reading Location: ??[id number] Procedure Note Elizabeth Ayala MD - 09/01/2023 EXAM DESCRIPTION: CT CHEST ABDOMEN AND PELVIS W CONTRAST REASON FOR STUDY: F/U right breast CA with mets to the lymph nodes - evaluate for mets x 2013. Hx of bilateral masectomy, HTN, GERD, non smoker. TECHNIQUE: CT scan of the chest, abdomen, and pelvis performed with intravenous and without oral contrast using helical scanning technique with dynamic intravenous contrast injection. Reconstructed coronal and sagittal MPR images reviewed. All images stored on PACS. Automated exposure control was used as a dose optimization technique for this examination. CONTRAST TYPE/DOSE: 100mL of IOPAMIDOL 76 % IV SOLN injected via Intravenous COMPARISON: CT abdomen and pelvis 06/15/2021 FINDINGS: CHEST LUNGS: The central airways are patent. Opacity in the right middle lobe likely represent subsegmental atelectasis/scarring. There are new bilateral pulmonary nodules. Index nodules include: 10 mm bilobed perifissural nodule in the right upper lobe (4/40) 5 mm nodule in the anteromedial left upper lobe (4/56), 8 mm perifissural nodule in the left lower lobe (4/70), 3 mm nodule in the right middle lobe (4/64), 6 mm subpleural nodule in the anterior right middle lobe (4/48), 5 mm nodule in the right lower lobe (4/78), 5 mm and 7 mm adjacent medial right lower lobe nodules (4/79, 81), 5 mm medial right lung base nodule (4/98), 5 mm nodule in the left lower lobe (4/71) PLEURA: No effusion. No pneumothorax. MEDIASTINUM/MILO: Prominent-enlarged mediastinal and right hilar nodes. Largest is a 1.2 cm prevascular node (2/30). HEART: Heart size is normal with no pericardial effusion. VASCULATURE CHEST: No thoracic aortic aneurysm or dissection. CHEST WALL/AXILLA: Postsurgical changes from bilateral mastectomy. There is an ill-defined multilobulated heterogeneously enhancing mass in the right chest infiltrating the pectoralis muscle, measuring up to 9.3 x 2.9 cm with associated skin thickening and retraction, consistent with malignancy. Surrounding fat stranding likely represent neoplastic infiltration. Enlarged right axillary lymph nodes including 1.5 cm node containing biopsy clip (2/41). Adjacent necrotic right axillary node measures 1.3 cm (2/40). There are enlarged right subpectoral lymph nodes measuring up to 10 mm in short axis (2/28, 22, 20). Within the left chest wall/axillary region, there is a 3.0 x 2.0 cm heterogeneously enhancing lobulated mass which may represent lymph node (2/40). Other prominent left axillary lymph nodes measuring up to 8 mm (2/34). HARDWARE/LINES/TUBES: None. MUSCULOSKELETAL CHEST: No significant abnormality. ABDOMEN/PELVIS LIVER: Normal size. No identified cystic or solid masses. GALLBLADDER: No stones, wall thickening or pericholecystic fluid BILE DUCTS: No intrahepatic or extrahepatic ductal dilatation. SPLEEN: Normal size. No focal lesions. PANCREAS: No identified cystic or solid masses. No significant calcifications. No adjacent inflammation or peripancreatic fluid collections. Pancreatic duct not dilated. ADRENALS: Normal. KIDNEYS/URINARY TRACT: No identified significant cystic or solid masses. No visualized stones. No hydronephrosis or hydroureter. Symmetric enhancement. Urinary bladder is unremarkable. GI: No dilated bowel loops. No obvious wall thickening. Normal appendix. No significant diverticular disease. PERITONEUM: No ascites or free air. RETROPERITONEUM: No mass or adenopathy. REPRODUCTIVE: No significant abnormality. VASCULATURE ABDOMEN: No abdominal aortic aneurysm. MUSCULOSKELETAL ABDOMEN PELVIS: Sclerotic lesions in the pelvis and left anterior 7th rib () are stable since 2021. Correlate with whole-body bone scan findings. OTHER: No significant abnormality. THIS IS AN ELECTRONICALLY VERIFIED FINAL REPORT 09/01/2023 6:03 PM - Electronically signed by Elizabeth Ramirez M.D. FT: FT Report ID: [id number] Reading Location: [id number] IMPRESSION: 1. Status post bilateral mastectomy with interval development of heterogeneously enhancing lobulated mass in the right chest, infiltrating the pectoralis muscle, consistent with malignancy. 2. Bilateral axillary lymphadenopathy, consistent with metastatic disease. 3. Multiple bilateral pulmonary nodules may represent metastatic disease. Further evaluation and correlation with PET-CT findings. 4. Prominent-enlarged mediastinal/right hilar nodes suspicious for jesse metastatic disease. 5. Sclerotic lesions in the pelvis and left 7th rib and remains stable since 2021. Correlate with bone scan and PET-CT findings. 6. No evidence of metastatic disease in the abdomen [facility] Pearson MD IMG CT ORDERABLES Final Result documented in this encounter Visit Diagnoses Diagnosis Recurrent malignant neoplasm of right breast (HCC) documented in this encounter Administered Medications Inactive Administered Medications - up to 3 most recent administrations Medication Order MAR Action Action Date Dose Rate Site iopamidol (ISOVUE-370) 76 % injection 100 mL 100 mL, Intravenous, ONCE, 1 dose, On 09/01/23 at 1000 Given 09/01/2023 9:49 AM CDT 100 mL documented in this encounter Additional Health Concerns Assessment Noted Time PHQ-9 Depression Total Score: 0 04/01/19 20 9:00 AM EDUCATION INTERN documented as of this encounter Care Teams Plant Anatomist Relationship Specialty Start Date End Date Iveth Guzman MD [address] [place] [address] PCP - General Family Medicine 05/02/23 Laurence Luque MD [address] [address] Consulting Physician General Surgery 02/01/15 Clemencia Bennett MD [address] [place] [address] Family Medicine 01/30/18 documented as of this encounter
--- OUTSIDE RECORDS SUMMARY | 2024-03-15 01:49 | XMS_ITS | Encounter Summary ---
Author Organization [facility] Address [address] [facility] [place] [address] Phone Care Team Providers Care Clarifier Name Role Phone Laurence Luque MD Unavailable [phone] Clemencia Bennett MD Unavailable [phone] Iveth Guzman MD Primary Care Provider [phone]- [phone] Reason for Visit * PT/OT/ST (Routine) - Open Specialty Diagnoses / Procedures Referred By Martin laguna Referred To Contact Rehabilitation Diagnoses Recurrent malignant neoplasm of right breast (HCC) Jose R Pearson MD [address] [place] [address] Phone: tel: fax: [facility] [address], [address] [address] Phone: tel: fax: Referral ID Status Reason Start Date Expiration Date Visits Re quested Visits Authorized [id number] Open 08/26/2023 1 60 Encounter Details Date Type Department Care Team (Late st Contact Info) Description 09/04/2023 2:30 PM CDT Physical Therapy [facility] [address], [place] [address] [address] Jose R Pearson MD [address] [place] [address] Iveth Aragon, PT [place] Lymphedema (Primary Dx); Postmastectomy lymphedema; 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 It feels like a needle jab around the scar site. She is going to Dr. Pearson tomorrow. Objective TREATMENT: Refer to PT OP Rehab Therapy Treatment flowsheet for details/minutes. Manual lymphatic drainage: Pt received manual lymphatic drainage to the trunk: Supra clavicular strokes Cervical sequence Axillary strokes Inguinal strokes Abdominal sequence Diaphragmatic breathing Pathways from right mastectomy scar upward toward supraclavicular LN Pathway from right mastectomy scar to left axilla Pathway from right mastectomy to left inguinal nodes. Educated pt on manual lymphatic drainage to trunk. Hand out given. Worked on self MLD. She needs further instruction. Showed her a Bellisse Compression bra. She is interested in it. She states that sometimes she wearsa sports bra over her regular bra to give compression. Patient response to new home exercises provided today: Tolerated it well. But minimal observable change in chest swelling Interventions provided this session: Manual lymphatic drainage Therapist provided Education, see above, and Skilled therapy by Manual Lymphatic drainage. ASSESSMENT: Patient demonstrates progress towards goals as evidenced by: She tolerated manual lymphatic drainage and she was able to perform some self MLD with cues and a hand out. Patient continues to demonstrate the following functional limitations: Decreased ability to reach over head, lie on her right side, sleep, Skilled interventions are necessary as demonstrated by the need for: -Manual lymphatic drainage to reduce edema and soften fibrotic tissue -Compression bandaging to maximize edema reduction and reduce fluid re-accumulation -Skin care education to reduce infection and ulcerations -Theraputic exercise to maximize range of motion and flexibility PLAN Goals to be achieved by discharge. Future treatment sessions to include measure for sleeve. Teach manual lymphatic drainage, measure for a bra. Patient will demonstrate the followin- Reduce LLIS [...] without pain, to aid in donning/doffing shirt. Planned Interventions: Plan of Care: patient will be seen 2L times a week for 12 visits from the date of initial evaluation for the following interventions: - Therapeutic Exercise (41051) - Manual Therapy, including Manual Lymphatic Drainage (33452) - Self Care / Home Management Training (44031) - Therapeutic Activity (86487) - Compression garment - Compression pump assessment - Home exercise program instruction Precautions: Lymphedema and Cancer Treatment may be altered based on patient progression and symptoms. The plan of care, as well as the benefits and risks of therapy were reviewed with the patient and the patient consented to treatment. Thank you for the opportunity to work with this individual.. documented in this encounter Plan of Treatment Upcoming Encounters Date Type Department Care Team (Late st Contact Info) Description 03/23/2024 1:00 PM ARTILLERY OR NAVAL GUNFIRE OBSERVER Appointment [facility] Cardiology Services [address] [place] [address] Jose R Pearson MD [address] [place] [address] Discharge Disposition: Discharged to home or Selfcare 03/23/2024 2:30 PM ARTILLERY OR NAVAL GUNFIRE OBSERVER Appointment [facility] [address] [place] [address] Jose R Pearson MD [address] [place] [address] Discharge Disposition: Discharged to home or Selfcare 03/30/2024 10:00 AM ARTILLERY OR NAVAL GUNFIRE OBSERVER Office Visit [facility] Oncology Services [address] [place] [address] Jose R Pearson MD [address] [place] [address] Discharge Disposition: Discharged to home or Selfcare 03/30/2024 10:30 AM ARTILLERY OR NAVAL GUNFIRE OBSERVER Lab [facility] Oncology Services [address] [place] [address] Discharge Disposition: Discharged to home or Selfcare 03/31/2024 1:00 PM ARTILLERY OR NAVAL GUNFIRE OBSERVER Clinical Support [facility] Oncology Services [address] [place] [address] Jose R Pearson MD [address] [place] [address] Discharge Disposition: Discharged to home or Selfcare 04/28/2024 1:30 PM ARTILLERY OR NAVAL GUNFIRE OBSERVER Clinical Support [facility] Oncology Services [address] [place] [address] Discharge Disposition: Discharged to home or Selfcare documented as of this encounter Goals Goal Patient Goal Type Associated Problems Recent Progress Patient-Stated? 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
--- OUTSIDE RECORDS SUMMARY | 2024-03-15 01:49 | XMS_ITS | Encounter Summary ---
Author Organization [facility] Care Team Providers Care Piano Mechanic Apprentice Name Role Phone Laurence Luque MD Unavailable Clemencia Bennett MD Unavailable [phone] Iveth Guzman MD Primary Care Provider [phone] Encounter Details Date Type Department Care Team (Latest Contact Info) Description 09/05/2023 Travel Social History Tobacco Use Types Packs/Day [...] st Contact Info) Description 03/23/2024 1:00 PM OPERATIONS INTELLIGENCE SUPERINTENDENT [facility]ointment [facility] [address] [place] [address] Jose R Pearson MD [address] [place] [address] Discharge Disposition: Discharged to home or Selfcare 03/23/2024 2:30 PM OPERATIONS INTELLIGENCE SUPERINTENDENT Appointment [facility] [address] [facility] [place] [address] Jose R Pearson MD [address] [place] [address] Discharge Disposition: Discharged to home or Selfcare 03/30/2024 10:00 AM OPERATIONS INTELLIGENCE SUPERINTENDENT Office Visit [facility] Oncology Services [address] [place] [address] Jose R Pearson MD [address] [place] [address] Discharge Disposition: Discharged to home or Selfcare 03/30/2024 10:30 AM OPERATIONS INTELLIGENCE SUPERINTENDENT Lab [facility]cology Services [address] [place] [address] Discharge Disposition: Discharged to home or Selfcare 03/31/2024 1:00 PM OPERATIONS INTELLIGENCE SUPERINTENDENT Clinical Support [facility]cology Services [address] [place] [address] Jose R Pearson MD [address] [place] [address] Discharge Disposition: Discharged to home or Selfcare 04/28/2024 1:30 PM OPERATIONS INTELLIGENCE SUPERINTENDENT Clinical Support [facility] Oncology Services [address] [place] [address] Discharge Disposition: Discharged to home or Selfcare documented as of this encounter Goals Goal Patient Goal Type Associated Problems Recent Progress Patient-Stated? Author Exercise 3x per week (30 min per time) Exercise Chica Louis MD documented as of this encounter Visit Diagnoses Not on filedocumented in this encounter Additional Health Concerns Assessment Noted Time PHQ-9 Depression Total Score: 0 04/01/19 20 9:00 AM OPERATIONS INTELLIGENCE SUPERINTENDENT documented as of this encounter Care Teams Piano Mechanic Apprentice Relationship Specialty Start Date End Date Iveth Guzman MD [address] [place] [address] PCP - General Family Medicine 05/02/23 Laurence Luque MD [address] [address] Consulting Physician General Surgery 02/01/15 Clemencia Bennett MD [address] [place] [address] Family Medicine 01/30/18 documented as of this encounter
--- OUTSIDE RECORDS SUMMARY | 2024-03-15 01:49 | XMS_ITS | Encounter Summary ---
Author Organization [facility] [employer] [facility] Care Team Providers Care Fabric Designer Name Role Phone Laurence Luque MD Unavailable [phone] Clemencia Bennett MD Unavailable [phone] Iveth Guzman MD Primary Care Provider + [phone] Sony Mcpherson MD Unavailable Encounter Details Date Type Department Care Team (Latest Contact Info) Description 09/16/2023 Travel Social History Tobacco Use Types Packs/Day [...] st Contact Info) Description 03/23/2024 1:00 PM DYE AUTOMATION OPERATOR [facility]ment [facility] 1 [place] [phone] Jose R Pearson MD [address] [place] [address] Discharge Disposition: Discharged to home or Selfcare 03/23/2024 2:30 PM DYE AUTOMATION OPERATOR Appointment [facility] CT 1 [facility] [place] [address] Jose R Pearson MD 0 [place] [address] Discharge Disposition: Discharged to home or Selfcare 03/30/2024 10:00 AM DYE AUTOMATION OPERATOR Office Visit [facility] Oncology Services [address] [place] [address] Jose R Pearson MD [address] [place] [address] Discharge Disposition: Discharged to home or Selfcare 03/30/2024 10:30 AM DYE AUTOMATION OPERATOR [facility] [address] [place] [address] Discharge Disposition: Discharged to home or Selfcare 03/31/2024 1:00 PM DYE AUTOMATION OPERATOR Clinical Support [facility] Oncology Services [address] [place] [address] Jose R Pearson MD [address] [place] [address] Discharge Disposition: Discharged to home or Selfcare 04/28/2024 1:30 PM DYE AUTOMATION OPERATOR Clinical Support [facility] Oncology Services [address] [place] [address] Discharge Disposition: Discharged to home or Selfcare documented as of this encounter Goals Goal Patient Goal Type Associated Problems Recent Progress Patient-Stated? Author Exercise 3x per week (30 min per time) Exercise Chica Louis MD documented as of this encounter Visit Diagnoses Not on filedocumented in this encounter Additional Health Concerns Assessment Noted Time PHQ-9 Depression Total Score: 0 04/01/19 20 9:00 AM DYE AUTOMATION OPERATOR documented as of this encounter Care Teams Fabric Designer Relationship Specialty Start Date End Date Iveth Guzman MD [address] [place] [address] PCP - General Family Medicine 05/02/23 Laurence Luque MD [address] [address] Consulting Physician General Surgery 02/01/15 Clemencia Bennett MD [address] [place] [address] Family Medicine 01/30/18 Sony Mcpherson MD #[address] [address] Consulting Physician General Surgery 09/08/23 documented as of this encounter
--- OUTSIDE RECORDS SUMMARY | 2024-03-15 01:49 | XMS_ITS | Encounter Summary ---
Author Organization [facility] Care Team Providers Care Tenterer Name Role Phone Laurence Luque MD Unavailable Clemencia Bennett MD Unavailable [phone] Iveth Guzman MD Primary Care Provider + [phone] Sony Mcpherson MD Unavailable [phone] Encounter Details Date Type Department Care Team (Latest Contact Info) Description 09/24/2023 Travel Social History Tobacco Use Types Packs/Day [...] st Contact Info) Description 03/23/2024 1:00 PM COLLET MAKING MACHINE OPERATOR [facility] 1 [place] [address] Jose R Pearson MD [address] [place] [address] Discharge Disposition: Discharged to home or Selfcare 03/23/2024 2:30 PM COLLET MAKING MACHINE OPERATOR Appointment [facility] CT 1 [facility] [place] [address] Jose R Pearson MD 0 [place] [address] Discharge Disposition: Discharged to home or Selfcare 03/30/2024 10:00 AM COLLET MAKING MACHINE OPERATOR Office Visit [facility] Oncology Services [address] [place] [address] Jose R Pearson MD [address] [place] [address] Discharge Disposition: Discharged to home or Selfcare 03/30/2024 10:30 AM COLLET MAKING MACHINE OPERATOR Lab [facility] [address] [place] [address] Discharge Disposition: Discharged to home or Selfcare 03/31/2024 1:00 PM COLLET MAKING MACHINE OPERATOR Clinical Support [facility] Oncology Services [address] [place] [address] Jose R Pearson MD [address] [place] [address] Discharge Disposition: Discharged to home or Selfcare 04/28/2024 1:30 PM COLLET MAKING MACHINE OPERATOR Clinical Support [facility] Oncology Services [address] [place] [address] Discharge Disposition: Discharged to home or Selfcare documented as of this encounter Goals Goal Patient Goal Type Associated Problems Recent Progress Patient-Stated? Author Exercise 3x per week (30 min per time) Exercise Chica Louis MD documented as of this encounter Visit Diagnoses Not on filedocumented in this encounter Additional Health Concerns Assessment Noted Time PHQ-9 Depression Total Score: 0 04/01/19 20 9:00 AM COLLET MAKING MACHINE OPERATOR documented as of this encounter Care Teams Tenterer Relationship Specialty Start Date End Date Iveth Guzman MD [address] [place] [address] PCP - General Family Medicine 05/02/23 Laurence Luque MD #[address] [address] Consulting Physician General Surgery 02/01/15 Clemencia Bennett MD [address] [place] [address] Family Medicine 01/30/18 Sony Mcpherson MD #[address] [address] Consulting Physician General Surgery 09/08/23 documented as of this encounter
--- OUTSIDE RECORDS SUMMARY | 2024-03-15 01:49 | XMS_ITS | Encounter Summary ---
Author Organization [facility] Address [address] [place] 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 Procedures INSERTION PORT -A -CATH Sony Mcpherson MD [address] [address] Phone: tel: fax: Referral ID Status Reason Start Date Expiration Date Visits Re quested Visits Authorized [id number] 1 1 Encounter Details Date Type Department Care Team (Late st Contact Info) Description 09/23/2023 10:30 AM CDT [facility]esthesia Event [facility] 1 [place] [address] Dexter Crowell, CLOSET ORGANIZER, SOCK LINING EXAMINER [address] [place] [address] Anesthesia Record Procedure Summary Procedure Name Responsible Anesthesiologist Anesthesia Start Time Anesthesia Stop Time LEFT INTERNAL JUGULAR PORT PLACEMENT WITH FLOURO AND ULTRASOUND (Left: Chest) Dexter Crowell APRN, SOCK LINING EXAMINER 09/23/23 1030 09/23/23 1124 Events Date Time Event Comment 09/23/2023 0957 1030 An Start 1032 An Start Data 1032 ANASSESSCMPLT 1032 Start Supplemental O2 1032 Anesthesia Ready 1119 Stop Supplemental O2 1119 Stop Data Collection 1119 Transort to Postop 1124 Handoff to RN I completed my SBAR handoff to the receiving nurse. Last vitals BP: 140/71 Temp: 36.3 ??C (97.3 ??F) Pulse: 58 Resp: 16 SpO2: 98 % 1124 An Stop Last vitals: BP : 140/71 Temp: 36.3 ??C (97.3 ??F) Pulse: 58 Resp: 16 SpO2: 98 % Meds Name Total propofol 10 mg/mL 674,830 mcg lidocaine 1 % 100 mg ceFAZolin (ANCEF) injection 1 g 1 g lactated ringers infusion 500 mL * Agents No agents on file. * Blood No blood administrations on file. Lines, Drains, and Airways Type Details Placement Removal Single Lumen Implantable Port 09/23/23; 1100; Yes; Left; Chest; DR MCPHERSON 09/23/23 1100 by Miguelito Graves RN PIV-Single Lumen Placement Date: 09/23/23; Placement Time: 08; Catheter Size: 22 G; Orientation: Posterior, Right; Location: Hand; Site Prep: Chlorhexidine ; Technique: Anatomical landmarks; Inserted by: amadeo hernández; Insertion Attempts: 1; Difficult Venous Access? No; Patient Tolerance: Tolerated well; Removal Date: 09/23/23; Removal Time: 1229 09/23/23 0812 by Estefania Hutchinson RN 09/23/23 1229 by Asia Hernández RN *Wound 09/23/23; 1050; Uppe r, Left; Chest; 10/23/23; 1304 09/23/23 1050 by Miguelito Graves RN 10/23/23 1304 by Auto-Discontinue, System *Wound 09/23/23; 1052; Incision; Left; Neck; 10/23/23; 1304 09/23/23 1052 by Miguelito Graves RN 10/23/23 1304 by Auto-Discontinue, System documented in this encounter Social History Tobacco Use Types Packs/Day Years [...] on file documented as of this encounter OR Notes * Anesthesia Postprocedure Evaluation - Dexter Crowell APRN, CRNA - 09/23/2023 11:26 AM CDT Patient: Angie Reed Procedure Summary Date: 09/23/23 Room / Location: [facility] MAIN OR 02 / [facility] Anesthesia Start: 1030 Anesthesia Stop: 1124 Procedure: LEFT INTERNAL JUGULAR PORT PLACEMENT WITH FLOURO AND ULTRASOUND (Left: Chest) Diagnosis:(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) Surgeons: Sony Mcpherson MD Responsible Provider: Dexter Crowell APRN, CRNA Anesthesia Type: MAC ASA Status: 3 Anesthesia Type: MAC Last vitals Vitals Value Taken Time BP 135/80 09/23/23 1123 Temp 35.9 ??C (96.6 ??F) 09/23/23 1123 Pulse 58 09/23/23 1123 Resp 19 09/23/23 1123 SpO2 100 % 09/23/23 1123 Pain score: 0 Pain management: adequate Patient location during evaluation: PACU Patient participation: Sufficiently recovered to participate Level of consciousness: sleepy but conscious Cardiovascular status: acceptable Respiratory status: acceptable and nasal cannula Hydration status: acceptable Comments: BP 135/80 Pulse 58 Temp 35.9 ??C (96.6 ??F) (Tympanic) Resp 19 Ht 5' 1 (1.549 m) Wt 157 lb 14.4 oz (71.6 kg) LMP 05/22/2018 (Approximate) SpO2 100% BMI 29.83 kg/m?? Anesthetic complications: no Airway patency: patent Nausea and Vomiting: none * Anesthesia Preprocedure Evaluation - Dexter Crowell APRN, CRNA - 09/23/2023 9:56 AM CDT Anesthesia Evaluation Procedure Information Date/Time: 09/23/23 1010 Procedure: LEFT PORT PLACEMENT, C-ARM ULTRASOUND (Left) Location: [facility] MAIN OR 02 / [facility] Surgeons: Sony Mcpherson MD Patient summary reviewed and Nursing notes reviewed No history of anesthetic complications No family history of anesthesia reaction Allergies: No Known Allergies Patient allergies reviewed. Medications: Current Facility-Administered Medications: bupivacaine (MARCAINE) 0.5 % injection, , , ONCE (in OR), Sony Mcpherson MD, 10 mL at 09/23/23 1058 fentaNYL (PF) (SUBLIMAZE) injection 25 mcg, 25 mcg, Intravenous, Q10 Min PRN, Dexter Crowell APRN, CRNA lactated ringers infusion, 20 mL/hr, Intravenous, Continuous, Sony Mcpherson MD, Last Rate: 20 mL/hr at 09/23/23 0812, 20 mL/hr at 09/23/23 0812 ondansetron (ZOFRAN) injection 4 mg, 4 mg, Intravenous, Once PRN, Dexter Crowell APRN, CRNA Facility-Administered Medications Ordered in Other Encounters: lidocaine 1 % injection, , Intravenous, ONCE (in OR), Dexter Crowell APRN, CRNA, 100 mg at 09/23/23 1041 propofol (DIPRIVAN) injection, , Intravenous, CONTINUOUS (in OR), Dexter Crowell APRN, CRNA, Last Rate: 107.4 mL/hr at 09/23/23 1041, 250 mcg/kg/min at 09/23/23 1041 Medications Prior to Admission: atorvastatin (LIPITOR) 10 MG Tablet, Take 1 tablet by mouth once daily, Disp: 90 Tablet, Rfl: 0 Cholecalciferol (Vitamin D) 2000 UNIT Tablet, Take 1 Tablet by mouth daily., Disp: , Rfl: LORazepam (ATIVAN) 0.5 MG Tablet, Take 1 Tablet by mouth every 8 hours as needed for Anxiety., Disp: 30 Tablet, Rfl: 0 metoprolol tartrate (LOPRESSOR) 25 MG Tablet, Take 1 tablet by mouth twice daily (Patient taking differently: 2 times daily.), Disp: 180 Tablet, Rfl: 0 Multiple Vitamin (MULTI-VITAMIN PO), Take 1 Tab by mouth daily., Disp: , Rfl: triamcinolone (KENALOG) 0.1 % Cream, Application Site:apply sparingly bid to affected area, Disp: 45 g, Rfl: 2 Patient medications reviewed. Airway Mallampati: II TM distance: <3 FB Neck ROM: full Dental - normal exam Pulmonary - negative ROS and normal exam breath sounds clear to auscultation Cardiovascular - negative ROS and normal exam Exercise tolerance: good (+) hypertension Rhythm: regular Rate: normal Neuro/Psych - negative ROS GI/Hepatic/Renal (+) GERD Endo/Other Comments: Breast ca Risks, benefits, alternatives discussed with:patient. Anesthesia Plan ASA 3 MAC intravenous induction Anesthetic plan and risks discussed with Patient. Plan discussed with SOCK LINING EXAMINER and surgeon. documented in this encounter Plan of Treatment Upcoming Encounters Date Type Department Care Team (Late st Contact Info) Description 03/23/2024 1:00 PM MANAGER CLINICAL SERVICES Appointment [facility] Cardiology Services [address] [place] [address] Jose R Pearson MD [address] [place] [address] Discharge Disposition: Discharged to home or Selfcare 03/23/2024 2:30 PM MANAGER CLINICAL SERVICES Appointment [facility] [address] [place] [address] Jose R Pearson MD [address] [place] [address] Discharge Disposition: Discharged to home or Selfcare 03/30/2024 10:00 AM MANAGER CLINICAL SERVICES Office Visit [facility] Oncology Services [address] [place] [address] [place] [address] [place] [address] Discharge Disposition: Discharged to home or Selfcare 03/30/2024 10:30 AM MANAGER CLINICAL SERVICES Lab [facility] [address] [place] [address] Discharge Disposition: Discharged to home or Selfcare 03/31/2024 1:00 PM MANAGER CLINICAL SERVICES Clinical Support [facility] Oncology Services [address] [place] [address] Jose R Paerson MD [address] [place] [address] Discharge Disposition: Discharged to home or Selfcare 04/28/2024 1:30 PM MANAGER CLINICAL SERVICES Clinical Support [facility] Oncology Services [address] [place] [address] Discharge Disposition: Discharged to home or Selfcare [...] MAR Action Action Date Dose Rate Site ceFAZolin (ANCEF) injection 1 g 1 g, Intravenous, ONCE, 1 dose, On Fri09/23/23 at 0830, INTRA-OP, Indications: Perioperative PharmacoprophylaxisIndicatio ns:Perioperative Pharmacoprophylaxis Given 09/23/2023 10:42 AM CDT 1 g lidocaine 1 % injection Intravenous, ONCE (in OR), Starting on Fri09/23/23 at 1041, Until Fri09/23/23 at 1125 Given 09/23/2023 10:41 AM CDT 100 mg propofol (DIPRIVAN) injection Intravenous, CONTINUOUS (in OR), Starting on Fri09/23/23 at 1032, Until Fri09/23/23 at 1125 Rate Change 09/23/2023 11:06 AM CDT 200 mcg/kg/min 85.92 mL/hr Rate Change 09/23/2023 10:41 AM CDT 225 mcg/kg/min 96.66 m L/hr New Bag 09/23/2023 10:32 AM CDT 200 mcg/kg/min 85.92 mL /hr documented in this encounter Additional Health Concerns Assessment Noted Time PHQ-9 Depression Total Score: 0 04/01/19 20 9:00 AM MANAGER CLINICAL SERVICES documented as of this encounter Care Teams Merchandising Coordinator Relationship Specialty Start Date End Date Iveth Guzman MD [address] [place] [address] PCP - General Family Medicine 05/02/23 Laurence Luque MD #[address] [address] Consulting Physician General Surgery 02/01/15 Clemencia Bennett MD [address] [place] [address] Family Medicine 01/30/18 Sony Mcpherson MD #[address] [address] Consulting Physician General Surgery 09/08/23 documented as of this encounter
--- OUTSIDE RECORDS SUMMARY | 2024-03-15 01:49 | XMS_ITS | Encounter Summary ---
Author Organization [facility] Address [address] 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) Procedures GENERAL SURGERY PROCEDURE [place] INSJ TUNNELED CTR VAD W/SUBQ PORT AGE 3 YR/> Sony Mcpherson MD #[address] [address] Phone: tel: fax: Referral ID Status Reason Start Date Expiration Date Visits Re quested Visits Authorized [id number] Closed 09/08/2023 1 1 Reason for Visit * Reason Comments New Patient * Consult, Test & Initiate Treatment (Less Than 2 Weeks) - Closed Specialty Diagnoses / Procedures Referred By Martin laguna Referred To Contact General Surgery Diagnoses Mass overlapping multiple quadrants of right breast Lung nodule Jose R Pearson MD [address] [place] [address] Phone: tel: fax: [facility] [address] [address] Phone: tel: fax: Referral ID Status Reason Start Date Expiration Date Visits Re quested Visits Authorized [id number] Closed 09/05/2023 1 1 Encounter Details Date Type Department Care Team (Late st Contact Info) Description 09/08/2023 2:00 PM CDT Office Visit [facility] #[address] [address] Jose R Pearson MD [address] [place], [place] [phone] Sony Mcpherson MD #[address] [address] 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) (Primary Dx); Mass overlapping multiple quadrants of right breast; Lung nodule Discharge Disposition: Discharged to home or Selfcare [...] Sign Reading Time Taken Comments Blood Pressure 136/76 09/08/2023 1:48 PM CDT Pulse 61 09/08/2023 1:48 PM CDT Temperature 36 ??C (96.8 ??F) 09/08/2023 1:48 PM CDT Respiratory Rate - - Oxygen Saturation 100% 09/08/2023 1:48 PM CDT Inhaled Oxygen Concentration - - Weight 73.9 kg (163 lb) 09/08/2023 1:48 PM CDT Height 154.9 cm (5' 1 ) 09/08/2023 1:48 PM CDT Body Mass Index 30.8 09/08/2023 1:48 PM CDT documented in this encounter Patient Instructions * Attachments The following attachments cannot be sent through Care Everywhere. * Implanted Port Insertion Care After (Grenadian) * Implanted Port Insertion (Grenadian) documented in this encounter Progress Notes * Sony Mcpherson MD - 09/08/2023 2:00 PM CDT HISTORY AND PHYSICAL Assessment: New consult for port placement History of breast cancer, status post bilateral mastectomy done in 2013 GERD Hypertension PLAN: A very detailed discussion was held with the patient in the presence of the breast navigator in [facility]. I explained in detail to the patient what a MediPort is, I showed her pictures from [employer]. We reviewed the steps of surgery, the recovery process etc. we discussed risks which include but are not limited to bleeding, infection, injury to structures, benefits and alternatives were also addressed. Surgical order was placed. We will perform placement in the left side. Total time spent on this encounter on this date of service, including pre-visit review of separately obtained history, wkyx-di-zray interaction performing medically appropriate physical exam, patientcounseling/education, [...] BREAST BIOPSY RIGHT 08/20/2023 Jony Harding MD [facility] ULTRASOUND COLONOSCOPY N/A 09/30/2018 Procedure: COLONOSCOPY - HEMORRHOIDS, NEGATIVE TERMINAL ILEUM; Surgeon: Patrice Hickman DO; Location: [facility] GI LAB; Service: Gastroenterology MASTECTOMY Bilateral 2013 [...] nursing note reviewed. Exam conducted with a motorcycle designer present. Constitutional: Appearance: Normal appearance. HENT: Head: [...] Iveth Guzman MD documented in this encounter Plan of Treatment Upcoming Encounters Date Type Department Care Team (Late st Contact Info) Description 03/23/2024 1:00 PM PRESS SET UP [facility] 1 [facility] [place] [address] Jose R Pearson MD [address] [place] [address] Discharge Disposition: Discharged to home or Selfcare 03/23/2024 2:30 PM PRESS SET UP [facility] 1 [facility] [place] [address] Jose R Pearson MD [address] [place] [address] Discharge Disposition: Discharged to home or Selfcare 03/30/2024 10:00 AM PRESS SET UP Office Visit [facility] Oncology Services [address] [place] [address] [place] [address] [place] [address] Discharge Disposition: Discharged to home or Selfcare 03/30/2024 10:30 AM PRESS SET UP Lab [facility] Oncology Services [address] [place] [address] Discharge Disposition: Discharged to home or Selfcare 03/31/2024 1:00 PM PRESS SET UP Clinical Support [facility] Oncology Services [address] [place] [address] Jose R Pearson MD [address] [place] [address] Discharge Disposition: Discharged to home or Selfcare 04/28/2024 1:30 PM PRESS SET UP Clinical Support [facility] Oncology Services [address] [place] [address] Discharge Disposition: Discharged to home or Selfcare Scheduled Orders Name Type Priority Associated Diagnoses Orde r Schedule GENERAL SURGERY PROCEDURE Procedures Routine 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)- Primary Mass overlapping multiple quadrants of right breast Lung nodule Solitary pulmonary nodule documented in this encounter Additional Health Concerns Assessment Noted Time PHQ-9 Depression Total Score: 0 04/01/19 20 9:00 AM PRESS SET UP documented as of this encounter Care Teams Associate [employer] Relationship Specialty Start Date End Date Iveth Guzman MD [address] [place] [address] PCP - General Family Medicine 05/02/23 Laurence Luque MD #[address] [address] Consulting Physician General Surgery 02/01/15 Clemencia Bennett MD [address] [place] [address] Family Medicine 01/30/18 Sony Mcpherson MD #[address] [address] Consulting Physician General Surgery 09/08/23 documented as of this encounter
--- OUTSIDE RECORDS SUMMARY | 2024-03-15 01:49 | XMS_ITS | Encounter Summary ---
Author Organization [facility] [employer] [facility] Care Team Providers Care Dry Goods Clerk Name Role Phone Laurence Luque MD Unavailable + [phone] Clemencia Bennett MD Unavailable [phone] Iveth Guzman MD Primary Care Provider + [phone] Sony Mcpherson MD Unavailable [phone] Jose R Pearson MD Unavailable [phone] Encounter Details Date Type Department Care Team (Latest Contact Info) Description 10/02/2023 Travel Social History Tobacco Use Types Packs/Day [...] st Contact Info) Description 03/23/2024 1:00 PM SPINNER BOX [facility] 1 [place] [address] Jose R Pearson MD 0 [place] [address] Discharge Disposition: Discharged to home or Selfcare 03/23/2024 2:30 PM SPINNER BOX Appointment [facility] [address] [place] [address] Jose R Pearson MD [address] [place] [address] Discharge Disposition: Discharged to home or Selfcare 03/30/2024 10:00 AM SPINNER BOX Office Visit [facility] Oncology Services 0 [place] [address] Jose R Pearson MD [address] [place] [address] Discharge Disposition: Discharged to home or Selfcare 03/30/2024 10:30 AM SPINNER BOX Lab [facility] Oncology Services 0 [place] [address] Discharge Disposition: Discharged to home or Selfcare 03/31/2024 1:00 PM SPINNER BOX Clinical Support [facility] Oncology Services [address] [place] [address] Jose R Pearson MD 0 [place] [address] Discharge Disposition: Discharged to home or Selfcare 04/28/2024 1:30 PM SPINNER BOX Clinical Support [facility] Oncology Services [address] [place] [address] Discharge Disposition: Discharged to home or Selfcare documented as of this encounter Goals Goal Patient Goal Type Associated Problems Recent Progress Patient-Stated? Author Exercise 3x per week (30 min per time) Exercise Chica Louis MD documented as of this encounter Visit Diagnoses Not on filedocumented in this encounter Additional Health Concerns Assessment Noted Time PHQ-9 Depression Total Score: 0 04/01/19 20 9:00 AM SPINNER BOX documented as of this encounter Care Teams Dry Goods Clerk Relationship Specialty Start Date End Date Iveth Guzman MD [address] [place] [address] PCP - General Family Medicine 05/02/23 Laurence Luque MD [address] [address] Consulting Physician General Surgery 02/01/15 Clemencia Bennett MD [address] [place] [address] Family Medicine 01/30/18 Sony Mcpherson MD #[address] [address] Consulting Physician General Surgery 09/08/23 Jose R Pearson MD [address] [place] [address] Consulting Physician Medical Oncology 10/02/23 documented as of this encounter
--- OUTSIDE RECORDS SUMMARY | 2024-03-15 01:49 | XMS_ITS | Encounter Summary ---
Author Organization [facility] Address [address] [place] [address] Phone Care Team Providers Care Barista Name Role Phone Laurence Luque MD Unavailable Clemencia Bennett MD Unavailable [phone] Iveth Guzman MD Primary Care Provider [phone] Reason for Referral * Radiology Services (Less Than 2 Weeks) - Closed Specialty Diagnoses / Procedures Referred By Martin laguna Referred To Contact Radiology Diagnoses Recurrent malignant neoplasm of right breast (HCC) Procedures NM BONE SCAN WHOLE BODY Jose R Pearson MD [address] [place] [address] Phone: tel: fax: Referral ID Status Reason Start Date Expiration Date Visits Re quested Visits Authorized [id number] Closed 08/26/2023 1 1 Reason for Visit * Radiology Services (Less Than 2 Weeks) - Closed Specialty Diagnoses / Procedures Referred By Martin laguna Referred To Contact Radiology Diagnoses Recurrent malignant neoplasm of right breast (HCC) Procedures NM BONE SCAN WHOLE BODY Jose R Pearson MD [address] [place] [address] Phone: tel: fax: Referral ID Status Reason Start Date Expiration Date Visits Re quested Visits Authorized [id number] Closed 08/26/2023 1 1 Encounter Details Date Type Department Care Team (Latest Contact Info) Description 09/01/2023 9:17 AM CDT - 09/01/2023 9:32 AM CDT Hospital Encounter [facility] Nuclear Medicine 1 [place] [address] Jose R Pearson MD [address] [place] [address] Discharge Disposition: Discharged to home or Selfcare [...] st Contact Info) Description 03/23/2024 1:00 PM SIGN BUILDER Appointment [facility] Cardiology Services [address] [place] [address] Jose R Pearson MD [address] [place] [address] Discharge Disposition: Discharged to home or Selfcare 03/23/2024 2:30 PM SIGN BUILDER Appointment [facility] [address] [place] [address] Jose R Pearson MD [address] [place] [address] Discharge Disposition: Discharged to home or Selfcare 03/30/2024 10:00 AM SIGN BUILDER Office Visit [facility] Oncology Services [address] [place] [address] Jose R Pearson MD [address] [place] [address] Discharge Disposition: Discharged to home or Selfcare 03/30/2024 10:30 AM SIGN BUILDER Lab [facility] Oncology Services [address] [place] [address] Discharge Disposition: Discharged to home or Selfcare 03/31/2024 1:00 PM SIGN BUILDER Clinical Support [facility] Oncology Services [address] [place] [address] Jose R Pearson MD [address] [place] [address] Discharge Disposition: Discharged to home or Selfcare 04/28/2024 1:30 PM SIGN BUILDER Clinical Support [facility] Oncology Services [address] [place] [address] Discharge Disposition: Discharged to home or Selfcare documented as of this encounter Goals Goal Patient Goal Type Associated Problems Recent Progress Patient-Stated? Author Exercise 3x per week (30 min per time) Exercise No Chica Saldaan MD documented as of this encounter Procedures [...] Electronically signed by ??Keo Quiroz M.D. LB: LB D: ??09/01/2023 2:06 PM T: ??09/01/2023 2:06 PM Report ID: [id number] Reading Location: ??[id number] Procedure Note Keo Quiroz MD - 09/01/2023 [...] Keo Quiroz M.D. LB: NAVEED Report ID: [id number] Reading Location: [id number] IMPRESSION: 1. Focal uptake in the medial [...] evaluation of the above findings. Jose R Giovanna Pearson MD IM NM ORDERABLES Final Result documented in this encounter Visit Diagnoses Diagnosis Recurrent malignant neoplasm of right breast (HCC) documented in this encounter Administered Medications Inactive Administered Medications - up to 3 most recent administrations Medication Order MAR Action Action Date Dose Rate Site TC-99 MEDRONATE PER DOSE,UP TO 30 MCI 1 Dose, Intravenous, ONCE, 1 dose, On 09/01/23 at 1000 Given 09/01/2023 9:25 AM CDT 1 Dose documented in this encounter Additional Health Concerns Assessment Noted Time PHQ-9 Depression Total Score: 0 04/01/19 20 9:00 AM SIGN BUILDER documented as of this encounter Care Teams Barista Relationship Specialty Start Date End Date Iveth Guzman MD [address] [place] [address] PCP - General Family Medicine 05/02/23 Laurence Luque MD [address] [address] Consulting Physician General Surgery 02/01/15 Clemencia Bennett MD [address] [facility] [address] Family Medicine 01/30/18 documented as of this encounter
--- OUTSIDE RECORDS SUMMARY | 2024-03-15 01:49 | XMS_ITS | Encounter Summary ---
Author Organization [facility] [employer] [facility] Care Team Providers Care Business Relations Manager Name Role Phone Laurence Luque MD Unavailable Clemencia Bennett MD Unavailable [phone] Iveth Guzman MD Primary Care Provider + [phone] Sony Mcpherson MD Unavailable Encounter Details Date Type Department Care Team (Latest Contact Info) Description 09/23/2023 Travel Social History Tobacco Use Types Packs/Day [...] st Contact Info) Description 03/23/2024 1:00 PM FORWARD AIR CONTROLLER/AIR OFFICER [facility] 1 [place] [phone] Jose R Pearson MD [address] [place] [address] Discharge Disposition: Discharged to home or Selfcare 03/23/2024 2:30 PM FORWARD AIR CONTROLLER/AIR OFFICER Appointment [facility] [address] 1 [facility] [place] [address] Jose R Pearson MD [address] [place] [address] Discharge Disposition: Discharged to home or Selfcare 03/30/2024 10:00 AM FORWARD AIR CONTROLLER/AIR OFFICER Office [facility] Oncology Services [address] [place] [address] Jose R Pearson MD [address] [place] [address] Discharge Disposition: Discharged to home or Selfcare 03/30/2024 10:30 AM FORWARD AIR CONTROLLER/AIR OFFICER [facility] [address] [place] [address] Discharge Disposition: Discharged to home or Selfcare 03/31/2024 1:00 PM FORWARD AIR CONTROLLER/AIR OFFICER Clinical Support [facility] Oncology Services [address] [place] [address] Jose R Pearson MD [address] [place] [address] Discharge Disposition: Discharged to home or Selfcare 04/28/2024 1:30 PM FORWARD AIR CONTROLLER/AIR OFFICER Clinical Support [facility] Oncology Services [address] [place] [address] Discharge Disposition: Discharged to home or Selfcare documented as of this encounter Goals Goal Patient Goal Type Associated Problems Recent Progress Patient-Stated? Author Exercise 3x per week (30 min per time) Exercise Chica Louis MD documented as of this encounter Visit Diagnoses Not on filedocumented in this encounter Additional Health Concerns Assessment Noted Time PHQ-9 Depression Total Score: 0 04/01/19 20 9:00 AM FORWARD AIR CONTROLLER/AIR OFFICER documented as of this encounter Care Teams Business Relations Manager Relationship Specialty Start Date End Date Iveth Guzman MD [address] [address] PCP - General Family Medicine 05/02/23 Laurence Luque MD #[address] [address] Consulting Physician General Surgery 02/01/15 Clemencia Bennett MD [address] [place] [address] Family Medicine 01/30/18 Sony Mcpherson MD #[address] [address] Consulting Physician General Surgery 09/08/23 documented as of this encounter
--- OUTSIDE RECORDS SUMMARY | 2024-03-15 01:49 | XMS_ITS | Encounter Summary ---
Author Organization [facility] Care Team Providers Care Bobbin Winder Tender Name Role Phone Laurence Luque MD Unavailable + [phone] Clemencia Bennett MD Unavailable [phone] Iveth Guzman MD Primary Care Provider + [phone] Sony Mcpherson MD Unavailable [phone] Jose R Pearson MD Unavailable [phone] Encounter Details Date Type Department Care Team (Latest Contact Info) Description 10/13/2023 Travel Social History Tobacco Use Types Packs/Day [...] st Contact Info) Description 03/23/2024 1:00 PM BISCUIT MAKER [facility] 1 [place] [address] Jose R Pearson MD 0 [place] [address] Discharge Disposition: Discharged to home or Selfcare 03/23/2024 2:30 PM BISCUIT MAKER Appointment [facility] CT [address] [place] [address] Jose R Pearson MD [address] [place] [address] Discharge Disposition: Discharged to home or Selfcare 03/30/2024 10:00 AM BISCUIT MAKER Office Visit [facility] Oncology Services 0 [place] [address] Jose R Pearson MD [address] [place] [address] Discharge Disposition: Discharged to home or Selfcare 03/30/2024 10:30 AM BISCUIT MAKER Lab [facility] Oncology Services 0 [place] [address] Discharge Disposition: Discharged to home or Selfcare 03/31/2024 1:00 PM BISCUIT MAKER Clinical Support [facility] Oncology Services [address] [place] [address] Jose R Pearson MD 0 [place] [address] Discharge Disposition: Discharged to home or Selfcare 04/28/2024 1:30 PM BISCUIT MAKER Clinical Support [facility] Oncology Services [address] [place] [address] Discharge Disposition: Discharged to home or Selfcare documented as of this encounter Goals Goal Patient Goal Type Associated Problems Recent Progress Patient-Stated? Author Exercise 3x per week (30 min per time) Exercise Chica Louis MD documented as of this encounter Visit Diagnoses Not on filedocumented in this encounter Additional Health Concerns Assessment Noted Time PHQ-9 Depression Total Score: 0 04/01/19 20 9:00 AM BISCUIT MAKER documented as of this encounter Care Teams Bobbin Winder Tender Relationship Specialty Start Date End Date Iveth Guzman MD [address] [place] [address] PCP - General Family Medicine 05/02/23 Laurence Luque MD [address] [address] Consulting Physician General Surgery 02/01/15 Clemencia Bennett MD [address] [place] [address] Family Medicine 01/30/18 Sony Mcpherson MD #[address] [address] Consulting Physician General Surgery 09/08/23 Jose R Pearson MD [address] [place] [address] Consulting Physician Medical Oncology 10/02/23 documented as of this encounter
--- OUTSIDE RECORDS SUMMARY | 2024-03-15 01:49 | XMS_ITS | Encounter Summary ---
Author Organization [facility] Address [address] [place] [address] Phone Care Team Providers Care Weaving Supervisor Name Role Phone Laurence Luque MD Unavailable Clemencia Bennett MD Unavailable Iveth Guzman MD Primary Care Provider [phone] Sony Mcpherson MD Unavailable Jose R Pearson MD Unavailable Reason for Visit * Reason Onset Date Comments Follow-up 09/30/2023 Port placement Encounter Details Date Type Department Care Team (Late st Contact Info) Description 09/30/2023 Telephone [facility] - Primary Care - Danny [address] [place] [address] Iveth Guzman MD [address] [place] [address] Follow-up (Port placement ) Social History Tobacco Use Types Packs/Day Years [...] encounter Miscellaneous Notes * Telephone Encounter - Rebeca Francis RN - 10/03/2023 11:09 AM CDT Attempted to call pt to schedule a port placement follow up appt, no answer, LVM for pt to call back. documented in this encounter Plan of Treatment Upcoming Encounters Date Type Department Care Team (Late st Contact Info) Description 03/23/2024 1:00 PM LINING SETTER Appointment [facility] Cardiology Services 1 [place] [address] Jose R Pearson MD [address] [place] [address] Discharge Disposition: Discharged to home or Selfcare 03/23/2024 2:30 PM LINING SETTER Appointment [facility] CT [address] [place] [address] Jose R Pearson MD [address] [place] [address] Discharge Disposition: Discharged to home or Selfcare 03/30/2024 10:00 AM LINING SETTER Office [facility] Oncology Services [address] [place] [address] Jose R Pearson MD [address] [place] [address] Discharge Disposition: Discharged to home or Selfcare 03/30/2024 10:30 AM LINING SETTER [facility] [address] [place] [address] Discharge Disposition: Discharged to home or Selfcare 03/31/2024 1:00 PM LINING SETTER Clinical Support [facility] Oncology Services [address] [place] [address] Jose R Pearson MD [address] [place] [address] Discharge Disposition: Discharged to home or Selfcare 04/28/2024 1:30 PM LINING SETTER Clinical Support [facility] Oncology Services [address] [place] [address] Discharge Disposition: Discharged to home [...] Total Score: 0 04/01/19 20 9:00 AM LINING SETTER documented as of this encounter Care Teams Weaving Supervisor Relationship Specialty Start Date End Date Iveth Guzman MD [address] [place] [address] PCP - General Family Medicine 05/02/23 Laurence Luque MD #[address] [address] Consulting Physician General Surgery 02/01/15 Clemencia Bennett MD [address] [place] [address] Family Medicine 01/30/18 Sony Mcpherson MD #[address] [address] Consulting Physician General Surgery 09/08/23 Jose R Pearson MD [address] [place] [address] Consulting Physician Medical Oncology 10/02/23 documented as of this encounter
--- OUTSIDE RECORDS SUMMARY | 2024-03-15 01:49 | XMS_ITS | Encounter Summary ---
Author Organization [facility] Care Team Providers Care Stress Analyst Name Role Phone Laurence Luque MD Unavailable Clemencia Bennett MD Unavailable [phone] Iveth Guzman MD Primary Care Provider + [phone] Sony Mcpherson MD Unavailable Encounter Details Date Type Department Care Team (Latest Contact Info) Description 09/25/2023 Travel Social History Tobacco Use Types Packs/Day [...] st Contact Info) Description 03/23/2024 1:00 PM HEATING WORKER [facility] 1 [place] [address] Jose R Pearson MD [address] [place] [address] Discharge Disposition: Discharged to home or Selfcare 03/23/2024 2:30 PM HEATING WORKER Appointment [facility] CT 1 [facility] [place] [address] Jose R Pearson MD 0 [place] [address] Discharge Disposition: Discharged to home or Selfcare 03/30/2024 10:00 AM HEATING WORKER Office Visit [facility] Oncology Services [address] [place] [address] Jose R Pearson MD [address] [place] [address] Discharge Disposition: Discharged to home or Selfcare 03/30/2024 10:30 AM HEATING WORKER [facility] 0 [place] [address] Discharge Disposition: Discharged to home or Selfcare 03/31/2024 1:00 PM HEATING WORKER Clinical Support [facility] Oncology Services [address] [place] [address] Jose R Pearson MD [address] [place] [address] Discharge Disposition: Discharged to home or Selfcare 04/28/2024 1:30 PM HEATING WORKER Clinical Support [facility] Oncology Services [address] [place] [address] Discharge Disposition: Discharged to home or Selfcare documented as of this encounter Goals Goal Patient Goal Type Associated Problems Recent Progress Patient-Stated? Author Exercise 3x per week (30 min per time) Exercise Chica Louis MD documented as of this encounter Visit Diagnoses Not on filedocumented in this encounter Additional Health Concerns Assessment Noted Time PHQ-9 Depression Total Score: 0 04/01/19 20 9:00 AM HEATING WORKER documented as of this encounter Care Teams Stress Analyst Relationship Specialty Start Date End Date Iveth Guzman MD [address] [place] [address] PCP - General Family Medicine 05/02/23 Laurence Luque MD #[address] [address] Consulting Physician General Surgery 02/01/15 Clemencia Bennett MD [address] [place] [address] Family Medicine 01/30/18 Sony Mcpherson MD #[address] [address] Consulting Physician General Surgery 09/08/23 documented as of this encounter
--- OUTSIDE RECORDS SUMMARY | 2024-03-15 01:49 | XMS_ITS | Encounter Summary ---
Author Organization [facility] Address [address] 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 Procedures INSERTION PORT -A -CATH Sony Mcpherson MD #[address] [address] Phone: tel: fax: Referral ID Status Reason Start Date Expiration Date Visits Re quested Visits Authorized [id number] 1 1 Encounter Details Date Type Department Care Team (Late st Contact Info) Description 09/23/2023 10:10 AM CDT - 09/23/2023 11:40 AM CDT Surgery [facility] Periop [address] [place] [address] Sony Mcpherson MD #[address] [address] LEFT INTERNAL JUGULAR PORT PLACEMENT WITH FLOURO AND ULTRASOUND Surgery Details Date/Time Status Location OR Service Patient Class Case Class Case Type Trauma Case? 09/23/2023 10:10 AM Posted [facility] OR [address] [place] [address] Ambulatory Surgery Elective/ Scheduled Panel 1 Procedure LRB Anes Op Region Wound Class Comments LEFT INTERNAL JUGULAR PORT PLACEMENT WITH FLOURO AND ULTRASOUND Left Monitored Anesthesia Care Chest Clean Surgeon Surgeon Role Service Panel Sony Mcpherson MD Primary General 1 Special Needs 5'1 161lbs Hx Bilateral Mastectomy, Htn, needs preg test in DS. documented in this encounter Social History Tobacco [...] Sign Reading Time Taken Comments Blood Pressure 137/79 09/23/2023 11:38 AM CDT Pulse 58 09/23/2023 11:38 AM CDT Temperature 35.9 ??C (96.6 ??F) 09/23/2023 1 1:23 AM CDT Respiratory Rate 18 09/23/2023 11:3 8 AM CDT Oxygen Saturation 100% 09/23/2023 11: 38 AM CDT Inhaled Oxygen Concentration - - [...] Everywhere. * Implanted Port Insertion Care After (Latvian) documented in this encounter Medications at Time [...] the presence of the breast navigator in [facility]. I explained in detail to the patient what a MediPort is, I showed her pictures from [employer]. We reviewed the steps of surgery, the recovery process etc. we discussed risks which include but are not limited to bleeding, infection, injury to structures, benefits and alternatives were also addressed. Surgical order was placed. We will perform placement in the left side. Total time spent on this encounter on this date of service, including pre-visit review of separately obtained history, dkiy-ge-iepv interaction performing medically appropriate physical exam, patientcounseling/education, [...] BREAST BIOPSY RIGHT 08/20/2023 Jony Harding MD [facility] ULTRASOUND COLONOSCOPY N/A 09/30/2018 Procedure: COLONOSCOPY - HEMORRHOIDS, NEGATIVE TERMINAL ILEUM; Surgeon: Patrice Hickman DO; Location: [facility] GI LAB; Service: Gastroenterology MASTECTOMY Bilateral 2013 [...] nursing note reviewed. Exam conducted with a chemical lab supervisor present. Constitutional: Appearance: Normal appearance. HENT: Head: [...] Surgeon(s): Sony Mcpherson MD 1st Scrub: Dino Martins, VASCULAR ULTRASOUND TECHNICIAN-Aluminum Siding Mechanic Accountant Cost: Miguelito Graves RN Laboratory Clerk: Rima Augustine RT(R) (CT) Preoperative diagnosis: need [...] PORT DETACHED POLY CATH VALVED MRI-3T - [id number] Inventory Item: PORT INFUSION 8FR 63CM PWR INJ PLASTIC SINGLE FILLED SMART PORT DETACHED POLY CATH VALVED MRI-3T Serial no.: [id number] Model/Cat no.: [id number] Implant name: PORT INFUSION 8FR 63CM PWR INJ PLASTIC SINGLE FILLED SMART PORT DETACHED POLY CATH VALVED MRI-3T - [id number] Laterality: Left Area: Chest Operations Supervisor Chemical Cleaning: [employer] Date of Manufacture: Action: Implanted Number Used: 1 Device Identifier: Device Identifier Type: Implant Type: IMPLANT Lot no.: [id number] Exp. Date: 05/14/2026 Supplier: Size: Condition: Stable [...] videos and all your education online visit, [email or web address] or scan this QR code with your [...] port is placed, you will get a cnc mechanic's information card. The card has informationabout your [...] and water are not available, use hand cleaners. ? Change your dressing as told by [...] you can safely lift. General instructions Take wgas-val-cewvmcw and prescription medicines only as told by [...] by your health care provider. Keep the cnc mechanic's information card with you at all times. [...] 2013-12-22 Document Updated: 2021-09-04 Document Reviewed: 2021-09-04 VideoNot.es Patient Education ? 2023 Trak. * Plan of Care - Meagan Bynum RN - 09/23/2023 10:58 AM CDT Patient will be discharged from PACU when criteria has been met. * Plan of Care - Estefania Htuchinson RN - 09/23/2023 7:52 AM CDT Problem: [...] Intervention: Mutually Develop Transition Plan Flowsheets (Taken 09/23/2023750) Readmission Within the Last 30 Days: no previous admission in last 30 days Problem: Surgery Nonspecified Goal: Anesthesia/Sedation Recovery Outcome: Ongoing (see interventions/notes) Intervention: Optimize Anesthesia Recovery Flowsheets (Taken 09/23/2023 0245) Safety Promotion/Fall Prevention: nonskid shoes/slippers when out of bed low bed * Toshia - Jenn Duron RN - 09/10/2023 11:00 AM CDT [facility] Patient Name: Angie Reed : 1970 [facility]#: [id number] Person Educated Patient Ready to Learn Yes [...] be allowed to accompany you to the [facility]. No children under theage of 16 will be allowed in the [facility] unless they are the patient. If [...] Patient Response: Verbalizes Understanding Patient assessed for hourly sign language interpreter during the preop interview and appropriate interventions taken if applicable. documented in this encounter Plan of Treatment Upcoming Encounters Date Type Department Care Team (Late st Contact Info) Description 03/23/2024 1:00 PM VASCULAR ULTRASOUND TECHNICIAN Appointment [facility] Cardiology Services [address] [place] [address] Jose R Pearson MD [address] [place] [address] Discharge Disposition: Discharged to home or Selfcare 03/23/2024 2:30 PM VASCULAR ULTRASOUND TECHNICIAN Appointment [facility] [address] [place] [address] Jose R Pearson MD [address] [place] [address] Discharge Disposition: Discharged to home or Selfcare 03/30/2024 10:00 AM VASCULAR ULTRASOUND TECHNICIAN Office Visit [facility] Oncology Services [address] [place] [address] Jose R Pearson MD [address] [place] [address] Discharge Disposition: Discharged to home or Selfcare 03/30/2024 10:30 AM VASCULAR ULTRASOUND TECHNICIAN Lab [facility] Oncology Services [address] [place] [phone] Discharge Disposition: Discharged to home or Selfcare 03/31/2024 1:00 PM VASCULAR ULTRASOUND TECHNICIAN Clinical Support [facility] Oncology Services [address] [place] [phone] Jose R Pearson MD [address] [place] [address] Discharge Disposition: Discharged to home or Selfcare 04/28/2024 1:30 PM VASCULAR ULTRASOUND TECHNICIAN Clinical Support [facility] Oncology Services [address] [place] [phone] Discharge Disposition: Discharged to home or Selfcare [...] AM T: ??09/23/2023 11:49 AM Report ID: [id number] Reading Location: ??[id number] Procedure Note Ole Sánchez MD - 09/23/2023 [...] Ole Sánchez M.D. MM: MM Report ID: [id number] Reading Location: [id number] IMPRESSION: No acute pulmonary process. Left internal jugular approach Port-A-Cath with tip in the superior vena cava. us Sony Mcpherson MD [facility] BL[facility] Final Result * XR SURGICAL EXAM (09/23/2023 11:17 AM CDT) us Sony Mcpherson MD [facility] Final Result * POCT Urine HCG () (09/23/2023 8:08 AM CDT) POC URINE Negative POC URINE CONTROL Selvage Machine Operator Pass Urine 09/23/2023 8:08 AM CDT us [...] Fri09/23/23 at 1504, Created by cabinet override bupivacaine (MARCAINE) 0.5 % injection ONCE (in OR), Starting on Fri09/23/23 at 1058, Until Fri09/23/23 at 1122, INTRA-OP Given 09/23/2023 10:58 AM CDT 10 mL Operative Site fentaNYL (PF) (SUBLIMAZE) injection 25 mcg 25 mcg, Intravenous, EVERY 10 MIN PRN, 4 doses, Starting on Fri09/23/23 at 1045, Until Fri09/23/23 at 1330, Moderate pain or more severe pain if patient requests, Severe pain, Every 5-15 minutes prn to maximum of 100 mcg., PACU (I & II) HEParin (porcine) injection ONCE (in OR), Starting on Fri09/23/23 at 1058, Until Fri09/23/23 at 1122, INTRA-OP Given 09/23/2023 10:58 AM CDT 500 Units Port lactated ringers infusion at 20 mL/hr, Intravenous, CONTINUOUS, Starting on Fri09/23/23 at 0830, Until Fri09/23/23 at 1504, PRE-OP (SURGERY) New Bag 09/23/2023 8:12 AM CDT 20 mL/hr 20 mL/hr lidocaine (PF) 1 % injection ONCE (in OR), Starting on Fri09/23/23 at 1059, Until Fri09/23/23 at 1122, INTRA-OP Given 09/23/2023 10:59 AM CDT 5 mL Operative Site ondansetron (ZOFRAN) injection 4 mg 4 mg, [...] Total Score: 0 04/01/19 20 9:00 AM VASCULAR ULTRASOUND TECHNICIAN documented as of this encounter Care Teams Business Risk Consultant Relationship Specialty Start Date End Date Iveth Guzman MD [address] [place] [address] PCP - General Family Medicine 05/02/23 Laurence Luque MD #[address] [phone] Consulting Physician General Surgery 02/01/15 Clemencia Bennett MD [address] [place] [address] Family Medicine 01/30/18 Sony Mcpherson MD #[address] [phone] Consulting Physician General Surgery 09/08/23 documented as of this encounter
--- OUTSIDE RECORDS SUMMARY | 2024-03-15 01:49 | XMS_ITS | Encounter Summary ---
Author Organization [facility] Address [address] [facility] [place] [address] Phone Care Team Providers Care Press Catcher Name Role Phone Laurence Luque MD Unavailable [phone] Clemencia Bennett MD Unavailable Iveth Guzman MD Primary Care Provider [phone] Encounter Details Date Type Department Care Team (Late st Contact Info) Description 08/26/2023 11:20 AM CDT [facility] [address] [place] [phone] Jose R Pearson MD 0 [place] [address] Recurrent malignant neoplasm of right breast (HCC) [...] on file documented as of this encounter Progress Notes * Lalita Lee RN - 08/26/2023 11:20 AM CDT Patient added on for labs today after doctor visit. Pt to lab room with . Labs drawn peripherally per MD orders. Site secured with gauze and coban. Pt tolerated well. Pt left lab room safely. documented in this encounter Plan of Treatment Upcoming Encounters Date Type Department Care Team (Late st Contact Info) Description 03/23/2024 1:00 PM FOOT SETTER Appointment [facility] Cardiology Services [address] [place] [address] Jose R Pearson MD 0 [place] [address] Discharge Disposition: Discharged to home or Selfcare 03/23/2024 2:30 PM FOOT SETTER Appointment [facility] [address] [place] [address] Jose R Pearson MD [address] [place] [address] Discharge Disposition: Discharged to home or Selfcare 03/30/2024 10:00 AM FOOT SETTER [facility] [address] [place] [address] Jose R Pearson MD [address] [place] [address] Discharge Disposition: Discharged to home or Selfcare 03/30/2024 10:30 AM FOOT SETTER [facility] [address] [place] [address] Discharge Disposition: Discharged to home or Selfcare 03/31/2024 1:00 PM FOOT SETTER Clinical Support [facility] Oncology Services [address] [place] [address] Jose R Pearson MD [address] [place] [address] Discharge Disposition: Discharged to home or Selfcare 04/28/2024 1:30 PM FOOT SETTER Clinical Support [facility] Oncology Services [address] [place] [address] Discharge Disposition: Discharged to home or Selfcare documented as of this encounter Goals Goal Patient Goal Type Associated Problems Recent Progress Patient-Stated? Author Exercise 3x per week (30 min per time) Exercise No Chica Saldana MD documented as of this encounter Procedures Procedure Name Priority Date/Time Associated Diagnosis Comments ESTRADIOL Routine 08/26/2023 11:36 AM CDT Recurrent malignant neoplasm of right breast (HCC) LUTEINIZING HORMONE Routine 08/26/2023 1 1:36 AM CDT Recurrent malignant neoplasm of right breast (HCC) FOLLICLE STIMULATING HORMONE (FSH) Routine 08/26/2023 11:36 AM CDT Recurrent malignant neoplasm of right breast (HCC) CBC WITH AUTO DIFFERENTIAL Routine 08/26/2023 11:36 AM CDT Recurrent malignant neoplasm of right breast (HCC) LUTEINIZING HORMONE (LH) Routine 08/26/2023 11:36 AM CDT Recurrent malignant neoplasm of right breast (HCC) FOLLICLE STIMULATING HORMONE (FSH) Routine 08/26/2023 11:36 AM CDT Recurrent malignant neoplasm of right breast (HCC) ESTRADIOL Routine 08/26/2023 11:36 AM CDT Recurrent malignant neoplasm of right breast (HCC) CMP (COMPREHENSIVE METABOLIC PANEL) Routine 08/26/2023 11:36 AM CDT Recurrent malignant neoplasm of right breast (HCC) COMPLETE BLOOD COUNT (CBC) WITH DIFF Routine 08/26/2023 11:36 AM CDT Recurrent malignant neoplasm of right breast (HCC) documented in this encounter Results * ESTRADIOL (08/26/2023 11:36 AM CDT) ESTRADIOL, SERUM 28 pg/mL 08/26/2023 9:21 PM CDT [facility] Blood Venipuncture / Unknown 08/26/2023 11:36 AM CDT 08/26/2023 11:36 AM CDT Narrative [facility] - 08/26/2023 9:21 PM CDT ESTRADIOL VALUE NORMAL MENSTRUATING FEMALE FOLLICULAR PHASE ?21-251 pg/mL MID CYCLE PHASE ? 38-649 pg/mL LUTEAL PHASE ?21-312 pg/mL POST MENOPAUSAL ON HRT ?<10-144 pg/mL POST MENOPAUSAL NOT ON HRT ?<10-28 pg/mL MALES ? 11-44 pg/mL Patients undergoing Fulvestrant therapy should not be tested by this method as it could produce falsely elevated estradiol results. [facility] Pearson MD CHEMISTRY ORDERABLES Fin al Result [facility] [address] [place] [address], * LUTEINIZING HORMONE (08/26/2023 11:36 AM CDT) LH 28.5 mIU/mL 08/26/2023 9:2 1 PM CDT [facility] Blood Venipuncture / Unknown 08/26/2023 11:36 AM CDT 08/26/2023 11:36 AM CDT Narrative [facility] - 08/26/2023 9:21 PM CDT Normally Menstruating Females: Follicular Phase: ? 1.8 - 11.8 Midcycle Peak: ?7.6 - 89.1 Luteal Phase: ? 0.6 - 14.0 Post Menopausal Females without HRT: 5.2 - 62.0 Jose R Pearson MD CHEMISTRY ORDERABLES Fin al Result Performing Organization Address [facility] de Phone Number [facility] [address] [place] [address], * FOLLICLE STIMULATING HORMONE (FSH) (08/26/2023 11:36 AM CDT) FSH 70.0 mIU/mL 08/26/2023 9:1 0 PM CDT [facility] Blood Venipuncture / Unknown 08/26/2023 11:36 AM CDT 08/26/2023 11:36 AM CDT Narrative [facility] - 08/26/2023 9:10 PM CDT Normally Menstruating Females Follicular Phase ? 3.0 - 8.1 Mid-cycle Peak ? 2.6 - 16.7 Luteal Phase ? 1.4 - 5.5 Postmenopausal Females 26.7 - 133.4 Jose R Pearson MD CHEMISTRY ORDERABLES Yaniv al Result Performing Organization Address [facility] Co de Phone Number [facility] [address] [place] [address], [place] * CBC WITH AUTO DIFFERENTIAL (08/26/2023 11:36 AM CDT) WBC 7.36 4.00 - 12.00 10(3)/mcL 08/26/2023 12:29 PM CDT [email or web address] LAB RBC 5.10 3.80 - 5.30 10(6)/mcL 08/26/2023 12:29 PM CDT [email or web address] LAB HEMOGLOBIN (HGB) 15.4 12.0 - 15.8 g/dL 08/26/2023 12:29 PM CDT [email or web address] LAB HEMATOCRIT (HCT) 45.1 36.0 - 47.0 % 08/26/2023 12:29 PM CDT [email or web address] LAB MCV 88.4 82.0 - 96.0 fL 08/26/2023 12:29 PM CDT [email or web address] LAB MCH 30.2 26.0 - 34.0 pg 08/26/2023 12:29 PM CDT [email or web address] LAB MCHC 34.1 31.0 - 36.0 g/dL 08/26/2023 12:29 PM CDT [facility] PLATELET COUNT 315 140 - 440 10(3)/mcL 08/26/2023 12:29 PM CDT [facility] RDW 11.9 11.8 - 15.5 % 08/26/2023 12:29 PM CD[address] [facility] MPV 9.8 9.7 - 12.4 fL 08/26/2023 12:29 PM CD[address] [facility] NEUTROPHILS 64.0 47.0 - 73.0 % 08/26/2023 12:29 PM CDT [email or web address] LAB LYMPHOCYTES 27.7 18.0 - 42.0 % 08/26/2023 12:29 PM CDT [email or web address] LAB MONOCYTES 6.5 4.0 - 12.0 % 08/26/2023 12:29 PM CDT [email or web address] LAB EOSINOPHILS 1.0 0.0 - 5.0 % 08/26/2023 12:29 PM CDT [email or web address] LAB BASOPHILS 0.8 0.0 - 1.0 % 08/26/2023 12:29 PM CDT [email or web address] LAB ABSOLUTE NEUTROPHILS 4.71 1.60 - 7.70 10(3)/mcL 08/26/2023 12:29 PM CDT [email or web address] LAB ABSOLUTE LYMPHOCYTES 2.04 1.30 - 3.20 10(3)/[facility] 08/26/2023 12:29 PM CDT [email or web address] LAB ABSOLUTE MONOCYTES 0.48 0.20 - 1.00 10(3)/[facility] 08/26/2023 12:29 PM CDT [email or web address] LAB ABSOLUTE EOSINOPHIL 0.07 0.00 - 0.40 10(3)/[facility] 08/26/2023 12:29 PM CDT [email or web address] LAB ABSOLUTE BASOPHILS 0.06 0.00 - 0.10 10(3)/[facility] 08/26/2023 12:29 PM CDT [facility] NRBC PER 100 WBC 0 08/26/19 12:29 PM [address] [facility] Blood Venipuncture / Unknown 08/26/2023 11:36 AM CDT 08/26/2023 11:36 AM CDT us Jose R Pearson MD HEMATOLOGY ORDERABLES Fi nal Result [facility] [address] [place] [address] * (ABNORMAL) CMP (COMPREHENSIVE METABOLIC PANEL) (08/26/2023 11:36 AM CDT) SODIUM 140 136 - 145 mmol/L 08/26/2023 1:25 PM [address] [facility] POTASSIUM 3.8 3.5 - 5.1 mmol/L 08/26/2023 1:25 PM CDT [facility] CHLORIDE 103 98 - 107 mmol/L 08/26/2023 1:25 PM [address] [facility] CO2, VENOUS 22 22 - 30 mmol/L 08/26/2023 1:25 PM [address] [facility] ANION GAP 18.8(H) <18.0 mmol/L 08/26/2023 1:25 PM CD[address] [facility] GLUCOSE 104(H) 70 - 99 mg/dL 08/26/2023 1:25 PM CD[address] [facility] BUN 11 10 - 20 mg/dL 08/26/2023 1:25 PM [address] [facility] CREATININE, BLOOD 1.03(H) 0.60 - 1.00 mg/dL 08/26/2023 1:25 PM [address] [facility] BUN/CREATININE RATIO 11(L) 12 - 20 ratio 08/26/2023 1:25 PM CD[address] [facility] TOTAL PROTEIN 8.2 6.3 - 8.2 g/dL 08/26/2023 1:25 PM [address] [facility] ALBUMIN 4.9 3.5 - 5.0 g/dL 08/26/2023 1:25 PM [address] [facility] A/G RATIO 1.5 1.0 - 2.2 08/26/2023 1:25 PM [address] [facility] CALCIUM 10.4 8.7 - 10.5 mg/dL 08/26/2023 1:25 PM [address] [facility] T BILI 0.8 0.2 - 1.2 mg/dL 08/26/2023 1:25 PM CD[address] [facility] SGOT (AST) 35(H) 5 - 34 U/L 08/26/2023 1:25 PM [address] [facility] SGPT (ALT) 32 0 - 55 U/L 08/26/2023 1:25 PM [address] [facility] ALKALINE PHOSPHATASE 83 40 - 150 U/L 08/26/2023 1:25 PM [address] [facility] IS THE PATIENT REQUIRED TO BE FASTING? No 08/26/2023 1:25 PM [address] [facility] GFR, ESTIMATED >60 >=60 08/26/2023 1:25 PM [address] [facility] Comment: Creatinine Clearance is the preferred criteria for selecting drug dose adjustments in renally impaired patients. ??The GFR is provided as additional pertinent clinical information. GFR is reported in mL/min/1.73 sq m. Calculation based on the Chronic Kidney Disease Epidemiology Collaboration (CKD- EPI) equation refit without adjustment for race. GFR, EST. >60 >=60 024 1:25 PM CDT [facility] GFR, EST. NONAFRICAN 56(L) >=60 08/26/2023 1:25 PM CDT [facility] Blood Venipuncture / Unknown 08/26/2023 11:36 AM CDT 08/26/2023 11:36 AM CDT us Jose R Pearson MD CHEMISTRY ORDERABLES Fin al Result [facility] [address] [facility] [place] [address] documented in this encounter Visit Diagnoses Diagnosis Recurrent malignant neoplasm of right breast (HCC) documented in this encounter Additional Health Concerns Assessment Noted Time PHQ-9 Depression Total Score: 0 04/01/19 20 9:00 AM FOOT SETTER documented as of this encounter Care Teams Press Catcher Relationship Specialty Start Date End Date Iveth Guzman MD [address] [place] [address] PCP - General Family Medicine 05/02/23 Laurence Luque MD [address] [address] Consulting Physician General Surgery 02/01/15 Clemencia Bennett MD [address] [place] [address] Family Medicine 01/30/18 documented as of this encounter
--- OUTSIDE RECORDS SUMMARY | 2024-03-15 01:49 | XMS_ITS | Encounter Summary ---
Author Organization [facility] Address [address] [place] [address] Phone Care Team Providers Care Port Traffic Manager Name Role Phone Laurence Luque MD Unavailable + [phone] Clemencia Bennett MD Unavailable [phone] Iveth Guzman MD Primary Care Provider + [phone] Sony Mcpherson MD Unavailable [phone] Reason for Referral * Radiology Services (Routine) - Closed Specialty Diagnoses / Procedures Referred By Martin laguna Referred To Contact Radiology Diagnoses Mass overlapping multiple quadrants of right breast Lung nodule Procedures PET CT TUMOR IMAGING SKULL BASE TO MID THIGH Jose R Pearson MD [address] [place] [address] Phone: tel: fax: Referral ID Status Reason Start Date Expiration Date Visits Re quested Visits Authorized [id number] Closed 09/05/2023 1 1 Reason for Visit * Radiology Services (Routine) - Closed Specialty Diagnoses / Procedures Referred By Martin laguna Referred To Contact Radiology Diagnoses Mass overlapping multiple quadrants of right breast Lung nodule Procedures PET CT TUMOR IMAGING SKULL BASE TO MID THIGH Jose R Pearson MD [address] [place] [address] Phone: tel: fax: Referral ID Status Reason Start Date Expiration Date Visits Re quested Visits Authorized [id number] Closed 09/05/2023 1 1 Encounter Details Date Type Department Care Team (Latest Contact Info) Description 09/17/2023 11:28 AM CDT - 09/17/2023 11:59 PM CDT Hospital Encounter [facility] PET [address] [place] [address] Jose R Pearson MD [address] [place] [address] Discharge Disposition: Discharged to home or Selfcare [...] - Inhaled Oxygen Concentration - - Weight 73 kg (161 lb) 09/17/2023 2:02 PM CDT Height 154.9 cm (5' 1 ) 09/17/2023 2:02 PM CDT Body Mass Index 30.42 09/17/2023 2:02 PM CDT documented in this encounter Medications at Time [...] st Contact Info) Description 03/23/2024 1:00 PM MUSIC STORE MANAGER Appointment [facility] Cardiology Services [address] [place] [address] Jose R Pearson MD [address] [place] [address] Discharge Disposition: Discharged to home or Selfcare 03/23/2024 2:30 PM MUSIC STORE MANAGER Appointment [facility] CT [address] [facility] [place] [address] Jose R Pearson MD [address] [place] [address] Discharge Disposition: Discharged to home or Selfcare 03/30/2024 10:00 AM MUSIC STORE MANAGER Office Visit [facility] Services [address] [place] [address] Jose R Pearson MD [address] [place] [address] Discharge Disposition: Discharged to home or Selfcare 03/30/2024 10:30 AM MUSIC STORE MANAGER Lab [facility] [address] [place] [address] Discharge Disposition: Discharged to home or Selfcare 03/31/2024 1:00 PM MUSIC STORE MANAGER Clinical Support [facility] [address] [place] [address] Jose R Pearson MD [address] [place] [address] Discharge Disposition: Discharged to home or Selfcare 04/28/2024 1:30 PM MUSIC STORE MANAGER Clinical Support [facility] [address] [place] [address] Discharge Disposition: Discharged to home or Selfcare documented as of this encounter Goals Goal Patient Goal Type Associated Problems Recent Progress Patient-Stated? Author Exercise 3x per week (30 min per time) Exercise No Chica Saldana MD documented as of this encounter Procedures Procedure Name Priority Date/Time Associated Diagnosis Comments PET CT TUMOR IMAGING SKULL BASE TO MID THIGH Routine 09/17/2023 1:15 PM CDT Mass overlapping multiple quadrants of right breast Lung nodule documented in this encounter Results * PET CT TUMOR IMAGING SKULL BASE TO MID THIGH (09/17/2023 1:15 PM CDT) Anatomical Region Laterality Modality BODY N/A Positron Emissio n Tomography (PET) 09/19/2023 9:12 AM CDT Impressions 09/19/2023 9:15 AM CDT IMPRESSION: Large hypermetabolic infiltrative right chest wall mass corresponding to the biopsy-proven malignancy. Multiple hypermetabolic bilateral axillary, mediastinal, right internal mammary and hilar lymph nodes characteristic of metastatic disease. Hypermetabolic osseous lesions in the bilateral iliac bones likely early osseous metastasis. ??Indeterminate activity at T5 and T7, continued attention on follow-up imaging recommended. Pulmonary nodules measuring up to 0.9 cm with minimal misregistered metabolic activity, these are nonspecific but suspicious for pulmonary metastasis. ??Continued attention on follow-up imaging would be recommended. Postsurgical changes from left mastectomy. Narrative 09/19/2023 9:15 AM CDT EXAM DESCRIPTION: ?? PET CT TUMOR IMAGING SKULL BASE TO MID THIGH REASON FOR STUDY: Right breast cancer and lung metastasis, mastectomy 2014 with the right breast biopsy 08/20/2023, patient is status post tamoxifen. ??PET-CT for restaging and subsequent treatment strategy. RADIOPHARMACEUTICAL: 14 ??mCi F-18 Fluorodeoxyglucose (FDG) via a ?? left antecubital ??IV site. TECHNIQUE: The patient's fasting blood glucose level, measured by glucometer before injection of FDG, was ??101 ??mg/dL. ??After intravenous administration of FDG, noncontrast CT images were obtained for attenuation correction and for fusion with emission PET images to allow for anatomical localization of PET findings. ?? Emission PET images were then obtained. The area imaged spanned the region from the skull base to the thighs. The uptake time was approximately ??60 ??minutes. SUV max was normalized to body weight. COMPARISON: No prior PET-CT. ??Chest CT 09/01/2023. FINDINGS: For reference, a region of interest of the ascending thoracic aorta has a maximal SUV of ??2.7 . ??For reference, a region of interest of the right hepatic lobe of the liver has a maximal SUV of ??3.5. Head: ??No significant included brain parenchyma for assessment. Neck: ??No hypermetabolic cervical lymphadenopathy. Chest: ??Postsurgical changes from left mastectomy. ??There is markedly abnormal appearance of the right chest wall with hypermetabolic soft tissue which extends from the skin surface and nipple through the chest wall to the pleura or near the pleura, this is approximately 8.3 x 3.5 cm, the maximal SUV is 23.1. ??This mass extends over an approximate 8 cm craniocaudal segment with several additional areas of hypermetabolic nodularity, for example an additional component in the medial right chest wall just lateral to the sternum 2.7 x 1.6 cm maximal SUV 23.1. ?? Hypermetabolic right level I axillary lymph nodes 1.7 x 1.2 cm, maximal SUV 4.8. ??There are biopsy clips of the right chest wall, associated with the right breast mass and associated with the level I axillary lymph node. ??Additional surgical clip in the right chest wall and axilla.. ??There is a hypermetabolic right level III axillary lymph node 1 cm maximal SUV 8.4. Multiple hypermetabolic level Tal numeral 2 and level I lymph nodes. ??Multiple hypermetabolic mediastinal and hilar lymph nodes. ??Prevascular lymph node 1.2 cm maximal SUV 20.6. ??Right paratracheal lymph node maximal SUV 8.0. ??Right hilar lymph node maximal SUV 15.7. ??Right internal mammary lymph node 0.9 cm maximal SUV 9.0. Hypermetabolic contralateral left axillary lymph nodes are also seen, an index left level I axillary lymph node is 3.5 x 2.3 cm, the maximal SUV 22.1. There is also a hypermetabolic level II axillary lymph node 0.8 cm maximal SUV 8.7. In the left lower lobe just posterior to the major fissure there is a 0.9 cm pulmonary nodule (series 2, image 79) slightly misregistered metabolic activity maximal SUV 1.1. ??Other small nodules below PET resolution, example in the left lower lobe 0.7 cm (series 2, image 91) and in the subpleural right lung 0.6 cm (image 85). ??Other small pleural-based areas of nodularity are noted without specific abnormal uptake. Heart size is normal. ??There is no pleural or pericardial effusion. Abdomen and Pelvis: Liver and spleen demonstrate normal physiologic activity. ??Gallbladder, pancreas, and both adrenal glands are normal. ??Physiologic excretion of FDG from the kidneys with expected accumulation of radiotracer in the urinary bladder. ??Physiologic bowel activity is seen. ??No hypermetabolic abdominal or pelvic lymphadenopathy. Bones: ??Hypermetabolic osseous lesions are noted, subtle area of sclerosis in the right iliac bone maximal SUV 9.7. ??Subtle area of sclerosis left iliac bone maximal SUV 5.5. ??Although symmetric, the level of intensity is suspicious for early osseous metastasis. ?? There also some subtle areas of slight increased metabolic activity T5 with a maximal SUV 2.8 and T7 maximal SUV 3.1. THIS IS AN ELECTRONICALLY VERIFIED FINAL REPORT 09/19/2023 9:12 AM - Electronically signed by ??Yanick Stephens M.D. CH: D: ??09/19/2023 9:12 AM T: ??09/19/2023 9:12 AM Report ID: [id number] Reading Location: ??[id number] Procedure Note Yanick Stephens Jr., MD - 09/19/2023 EXAM DESCRIPTION: PET CT TUMOR IMAGING SKULL BASE TO MID THIGH REASON FOR STUDY: Right breast cancer and lung metastasis, mastectomy 2013 with the right breast biopsy 08/20/2023, patient is status post tamoxifen. PET-CT for restaging and subsequent treatment strategy. RADIOPHARMACEUTICAL: 14 mCi F-18 Fluorodeoxyglucose (FDG) via a left antecubital IV site. TECHNIQUE: The patient's fasting blood glucose level, measured by glucometer before injection of FDG, was 101 mg/dL. After intravenous administration of FDG, noncontrast CT images were obtained for attenuation correction and for fusion with emission PET images to allow for anatomical localization of PET findings. Emission PET images were then obtained. The area imaged spanned the region from the skull base to the thighs. The uptake time was approximately 60 minutes. SUV max was normalized to body weight. COMPARISON: No prior PET-CT. Chest CT 09/01/2023. FINDINGS: For reference, a region of interest of the ascending thoracic aorta has a maximal SUV of 2.7 . For reference, a region of interest of the right hepatic lobe of the liver has a maximal SUV of 3.5. Head: No significant included brain parenchyma for assessment. Neck: No hypermetabolic cervical lymphadenopathy. Chest: Postsurgical changes from left mastectomy. There is markedly abnormal appearance of the right chest wall with hypermetabolic soft tissue which extends from the skin surface and nipple through the chest wall to the pleura or near the pleura, this is approximately 8.3 x 3.5 cm, the maximal SUV is 23.1. This mass extends over an approximate 8 cm craniocaudal segment with several additional areas of hypermetabolic nodularity, for example an additional component in the medial right chest wall just lateral to the sternum 2.7 x 1.6 cm maximal SUV 23.1. Hypermetabolic right level I axillary lymph nodes 1.7 x 1.2 cm, maximal SUV 4.8. There are biopsy clips of the right chest wall, associated with the right breast mass and associated with the level I axillary lymph node. Additional surgical clip in the right chest wall and axilla.. There is a hypermetabolic right level III axillary lymph node 1 cm maximal SUV 8.4. Multiple hypermetabolic level Tal numeral 2 and level I lymph nodes. Multiple hypermetabolic mediastinal and hilar lymph nodes. Prevascular lymph node 1.2 cm maximal SUV 20.6. Right paratracheal lymph node maximal SUV 8.0. Right hilar lymph node maximal SUV 15.7. Right internal mammary lymph node 0.9 cm maximal SUV 9.0. Hypermetabolic contralateral left axillary lymph nodes are also seen, an index left level I axillary lymph node is 3.5 x 2.3 cm, the maximal SUV 22.1. There is also a hypermetabolic level II axillary lymph node 0.8 cm maximal SUV 8.7. In the left lower lobe just posterior to the major fissure there is a 0.9 cm pulmonary nodule (series 2, image 79) slightly misregistered metabolic activity maximal SUV 1.1. Other small nodules below PET resolution, example in the left lower lobe 0.7 cm (series 2, image 91) and in the subpleural right lung 0.6 cm (image 85). Other small pleural-based areas of nodularity are noted without specific abnormal uptake. Heart size is normal. There is no pleural or pericardial effusion. Abdomen and Pelvis: Liver and spleen demonstrate normal physiologic activity. Gallbladder, pancreas, and both adrenal glands are normal. Physiologic excretion of FDG from the kidneys with expected accumulation of radiotracer in the urinary bladder. Physiologic bowel activity is seen. No hypermetabolic abdominal or pelvic lymphadenopathy. Bones: Hypermetabolic osseous lesions are noted, subtle area of sclerosis in the right iliac bone maximal SUV 9.7. Subtle area of sclerosis left iliac bone maximal SUV 5.5. Although symmetric, the level of intensity is suspicious for early osseous metastasis. There also some subtle areas of slight increased metabolic activity T5 with a maximal SUV 2.8 and T7 maximal SUV 3.1. THIS IS AN ELECTRONICALLY VERIFIED FINAL REPORT 09/19/2023 9:12 AM - Electronically signed by Yanick Stephens M.D. CH: BELA Report ID: [id number] Reading Location: [place] [address] IMPRESSION: Large hypermetabolic infiltrative right chest wall [...] be recommended. Postsurgical changes from left mastectomy. Jose R Giovanna Pearson MD IMG PET Final Re sult documented in this encounter Visit Diagnoses Diagnosis Mass overlapping multiple quadrants of right breast Lung nodule Solitary pulmonary nodule documented in this encounter Administered Medications Inactive Administered Medications - up to 3 most recent administrations Medication Order MAR Action Action Date Dose Rate Site FDG PER DOSE,UP TO 45 MCI 1 Dose, Intravenous, ONCE, 1 dose, On Fri09/17/23 at 1200 Given 09/17/2023 11:47 AM CDT 1 Dose documented in this encounter Additional Health Concerns Assessment Noted Time PHQ-9 Depression Total Score: 0 04/01/19 20 9:00 AM MUSIC STORE MANAGER documented as of this encounter Care Teams Port Traffic Manager Relationship Specialty Start Date End Date Iveth Guzman MD [address] [place] [address] PCP - General Family Medicine 05/02/23 Laurence Luque MD [address] [phone] Consulting Physician General Surgery 02/01/15 Clemencia Bennett MD [address] [place] [address] Family Medicine 01/30/18 Sony Mcpherson MD [address] [address] Consulting Physician General Surgery 09/08/23 documented as of this encounter
--- OUTSIDE RECORDS SUMMARY | 2024-03-15 01:49 | XMS_ITS | Encounter Summary ---
Author Organization [facility] Address [address] [place] [address] Phone Care Team Providers Care Search Engine Optimization Strategist Name Role Phone Laurence Luque MD Unavailable [phone] Clemencia Bennett MD Unavailable [phone] Iveth Guzman MD Primary Care Provider + [phone] Sony Mcpherson MD Unavailable [phone] Reason for Referral * Medical Care (Routine) - Closed Specialty Diagnoses / Procedures Referred By Martin laguna Referred To Contact Diagnoses Breast cancer metastasized to axillary lymph node, right (HCC) Procedures OFFICE/OP NEW LVL 3 LOW MDM/30-44 MIN OFFICE/OP EST LVL 3 LOW MDM/20-29 MIN Jose R Pearson MD [address] [place] [address] Phone: tel: fax: [facility] Techn[facility] [address] [place] [phone] Phone: tel: fax: Referral ID Status Reason Start Date Expiration Date Visits Re quested Visits Authorized [id number] Closed 09/24/2023 1 11 Scheduling Instructions Angie is being referred for new chemo patient. Please contact patient for scheduling questions or concerns. 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) Jose R Pearson MD [address] [place] [address] Phone: tel: fax: [facility] [address] [place] [address] Phone: tel: fax: Referral ID Status Reason Start Date Expiration Date V isits Requested Visits Authorized [id number] Authorized 09/16/2023 1 16 Encounter Details Date Type Department Care Team (Latest Contact Info) Description 09/24/2023 9:00 AM CDT Clinical Support [facility] [address] [place] [address] Jose R Pearson MD [address] [place] [address] Breast cancer metastasized to axillary [...] Sign Reading Time Taken Comments Blood Pressure 174/93 09/24/2023 8:51 AM CDT Pulse 66 09/24/2023 8:51 AM CDT Temperature 36.8 ??C (98.3 ??F) 09/24/2023 8:51 AM CD T Respiratory Rate 14 09/24/2023 8:51 AM CDT Oxygen Saturation 98% 09/24/2023 8:51 AM CDT Inhaled Oxygen Concentration - - Weight 71.1 kg (156 lb 11.2 oz) 09/24/2023 8:51 AM CDT Height 154.9 cm (5' 1 ) 09/24/2023 8:51 AM CDT Body Mass Index 29.61 09/24/2023 8:51 AM CDT documented in this encounter Miscellaneous Notes * Interdisciplinary - Ced Navarrete - 09/24/2023 9:00 AM CDT Physical Sciences Instructor visited with pt while undergoing her treatments. Physical Sciences Instructor introduced himself and was greeted warmly by pt. Her Scot was present also and both engaged in conversation and dialogue. Ptreported that they live in [place] but are downsizing closer to [place] as her is getting ready to retire. Pt is originally from the [facility] and they have been for 37 years. Pt worked for about 20 years but now spends time with her young grandchildren and helps watch them. Pt remarks that they bring her a lot of chetan. 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 Pt is [employer], according to her own report. She stated that she had breast cancer several years ago, and got through it well. Now she is going through illness again. Pt reports that this is her first treatment for this current illness. She voiced being nervous and a little bit scared of the unknown. However, she stated that she has a good support system and a close family for help. They are moving closer to her children and grandchildren, so she is looking forward to the convenience of spending more time with her three children and three grandchildren. Pt smiled and thanked for visiting. Physical Sciences Instructor asked about her darcie and shared some stories of encouragement and empathy. Physical Sciences Instructor prayed for pt at her request. Physical Sciences Instructor will follow-up as needed or requested. * Interdisciplinary - Jaida Collins RN - 09/24/2023 9:00 AM CDT Presents for scheduled chemo. Vitals obtained. Port accessed and baseline labs drawn. Chemo class provided. Spent approximately 35 minutes educating on intended effects and side effects of chemo, on how to take home medications, and when to contact office. Consent obtained for trazimera, perjeta, docetaxel, and carboplatin. Treatment given as ordered, tolerated well. Port de-accessed and band-aidapplied. Left infusion room in stable condition. documented in this encounter Plan of Treatment Upcoming Encounters Date Type Department Care Team (Late st Contact Info) Description 03/23/2024 1:00 PM WIRE DRAWING MACHINE OPERATOR Appointment [facility] Card[facility] Services [address] [place] [address] Jose R Pearson MD [address] [place] [address] Discharge Disposition: Discharged to home or Selfcare 03/23/2024 2:30 PM WIRE DRAWING MACHINE OPERATOR Appointment [facility] [address] [place] [address] Jose R Pearson MD [address] [place] [address] Discharge Disposition: Discharged to home or Selfcare 03/30/2024 10:00 AM WIRE DRAWING MACHINE OPERATOR Office Visit [facility] [address] [place] [address] Jose R Pearson MD [address] [place] [address] Discharge Disposition: Discharged to home or Selfcare 03/30/2024 10:30 AM WIRE DRAWING MACHINE OPERATOR [facility] [address] [place] [address] Discharge Disposition: Discharged to home or Selfcare 03/31/2024 1:00 PM WIRE DRAWING MACHINE OPERATOR Clinical Support [facility] [address] [place] [address] Jose R Pearson MD [address] [place] [address] Discharge Disposition: Discharged to home or Selfcare 04/28/2024 1:30 PM WIRE DRAWING MACHINE OPERATOR Clinical Support [facility] [address] [place] [address] Discharge Disposition: Discharged to home or Selfcare Scheduled Referrals Name Type Priority Associated Diagnoses Orde r Schedule DIETARY/NUTRITION REFERRAL Outpatient Referral Routine Breast cancer metastasized to axillary lymph node, right (HCC) Expected: 09/24/2023, Expires: 09/23/2024 documented as of this encounter Goals Goal Patient Goal Type Associated Problems Recent Progress Patient-Stated? Author Exercise 3x per week (30 min per time) Exercise No Chica Saldana MD documented as of this encounter Procedures Procedure Name Priority Date/Time Associated Diagnosis Comments CBC WITH AUTO DIFFERENTIAL STAT 09/24/2023 9:02 AM CDT CMP (COMPREHENSIVE METABOLIC PANEL) STAT 09/24/2023 9:02 AM CDT COMPLETE BLOOD COUNT (CBC) WITH DIFF STAT 09/24/2023 9:02 AM CDT documented in this encounter Results * (ABNORMAL) CBC with Auto Differential (09/24/2023 9:02 AM CDT) [facility] WBC 8.55 4.00 - 12.00 10(3)/mcL 09/24/2023 9:21 AM CDT [facility] RBC 4.82 3.80 - 5.30 10(6)/mcL 09/24/2023 9:21 AM CDT [facility] HEMOGLOBIN (HGB) 14.4 12.0 - 15.8 g/dL 09/24/2023 9:21 AM CDT [facility] HEMATOCRIT (HCT) 42.8 36.0 - 47.0 % 09/24/2023 9:21 AM CDT [facility] MCV 88.8 82.0 - 96.0 fL 09/24/2023 9:21 AM CDT [facility] MCH 29.9 26.0 - 34.0 pg 09/24/2023 9:21 AM CDT [facility] MCHC 33.6 31.0 - 36.0 g/dL 09/24/2023 9:21 AM CDT [facility] PLATELET COUNT 265 140 - 440 10(3)/mcL 09/24/2023 9:21 AM CDT [facility] RDW 12.1 11.8 - 15.5 % 09/24/2023 9:21 AM CDT [facility] MPV 9.8 9.7 - 12.4 fL 09/24/2023 9:21 AM CDT [facility] NEUTROPHILS 87.0(H) 47.0 - 73.0 % 09/24/2023 9:21 AM CDT [facility] LYMPHOCYTES 11.1(L) 18.0 - 42.0 % 09/24/2023 9:21 AM CDT [facility] MONOCYTES 1.8(L) 4.0 - 12.0 % 09/24/2023 9:21 AM CDT [facility] EOSINOPHILS 0.0 0.0 - 5.0 % 09/24/2023 9:21 AM CDT [facility] BASOPHILS 0.1 0.0 - 1.0 % 09/24/2023 9:21 AM CDT [facility] ABSOLUTE NEUTROPHILS 7.44 1.60 - 7.70 10(3)/mcL 09/24/2023 9:21 AM CDT [facility] ABSOLUTE LYMPHOCYTES 0.95(L) 1.30 - 3.20 10(3)/mcL 09/24/2023 9:21 AM CDT [facility] ABSOLUTE MONOCYTES 0.15(L) 0.20 - 1.00 10(3)/[facility] 09/24/2023 9:21 AM CDT [facility] ABSOLUTE EOSINOPHIL 0.00 0.00 - 0.40 10(3)/[facility] 09/24/2023 9:21 AM CDT [facility] ABSOLUTE BASOPHILS 0.01 0.00 - 0.10 10(3)/[facility] 09/24/2023 9:21 AM CDT [facility] NRBC PER 100 WBC 0 09/24/19 9:21 AM CDT [facility] Blood Sub-Q Port Venou s Access Device (Medi-Port, Implanted Port) / Unknown 09/24/2023 9:02 AM CDT 09/24/2023 9:02 AM CDT us Jose R Pearson MD HEMATOLOGY ORDERABLES Fi nal Result [facility] [address] [place] [address] * (ABNORMAL) CMP (Comprehensive Metabolic Panel) (09/24/2023 9:02 AM CDT) SODIUM 141 136 - 145 mmol/L 09/24/2023 9:30 AM CDT [facility] POTASSIUM 3.7 3.5 - 5.1 mmol/L 09/24/2023 9:30 AM CDT [facility] CHLORIDE 107 98 - 107 mmol/L 09/24/2023 9:30 AM CDT [facility] CO2, VENOUS 22 22 - 30 mmol/L 09/24/2023 9:30 AM CDT [facility] ANION GAP 15.7 <18.0 mmol/L 09/24/2023 9:30 AM CDT [facility] GLUCOSE 208(H) 70 - 99 mg/dL 09/24/2023 9:30 AM CDT [facility] BUN 13 10 - 20 mg/dL 09/24/2023 9:30 AM T [facility] CREATININE, BLOOD 0.88 0.60 - 1.00 mg/dL 09/24/2023 9:30 AM CDT [facility] BUN/CREATININE RATIO 15 12 - 20 ratio 09/24/2023 9:30 AM CDT [facility] TOTAL PROTEIN 7.5 6.3 - 8.2 g/dL 09/24/2023 9:30 AM CDT [facility] ALBUMIN 4.4 3.5 - 5.0 g/dL 09/24/2023 9:30 AM T [facility] A/G RATIO 1.4 1.0 - 2.2 09/24/2023 9:30 AM T [facility] CALCIUM 9.8 8.7 - 10.5 mg/dL 09/24/2023 9:30 AM T [facility] T BILI 0.4 0.2 - 1.2 mg/dL 09/24/2023 9:30 AM [facility] SGOT (AST) 22 5 - 34 U/L 09/24/2023 9:30 AM [facility] SGPT (ALT) 22 0 - 55 U/L 09/24/2023 9:30 AM [facility] ALKALINE PHOSPHATASE 81 40 - 150 U/L 09/24/2023 9:30 AM [facility] GFR, ESTIMATED >60 >=60 09/24/2023 9:30 AM [facility] Comment: Creatinine Clearance is the preferred criteria for selecting drug dose adjustments in renally impaired patients. ??The GFR is provided as additional pertinent clinical information. GFR is reported in mL/min/1.73 sq m. Calculation based on the Chronic Kidney Disease Epidemiology Collaboration (CKD- EPI) equation refit without adjustment for race. GFR, EST. >60 >=60 024 9:30 AM T [facility] GFR, EST. 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) documented in this encounter Administered Medications Inactive Administered Medications - up to 3 most recent administrations Medication Order MAR Action Action Date Dose Rate Site 0.9 % sodium chloride solution at 50 mL/hr, Intravenous, ONCE, 1 dose, On Fri09/24/23 at 1000Indications:Breast cancer metastasized to axillary lymph node, right (HCC) New 09/24/2023 9:32 AM CDT 250 mL 50 mL/hr CARBOplatin 546 mg in sodium chloride 0.9 % 250 mL chemo infusion 546 mg (Target AUC = 6), Intravenous, ONCE, 1 dose, On Fri09/24/23 at 1400, Administer over 30 MinutesIndications:Breast cancer metastasized to axillary lymph node, right (HCC),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 1.77 m2 Treatment Plan BSA from Recorded weight), Intravenous, ONCE, 1 dose, On Fri09/24/23 at 1300, Administer over 60 Minutes, Should be dispensed in either glass or non-PVC containers (eg, ExcelT/PABT). 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) New Bag 09/24/2023 9:39 AM CDT 150 mg Heparin Na (Pork) Lock Flsh PF SOLN 50 Units 50 Units, Intravenous, PRN, Starting on Fri09/24/23 at 0904, Until Fri09/24/23 at 1728, Line Care, Line care per [employer].Indications:Breast cancer metastasized to axillary lymph node, right (HCC),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) Given 09/24/2023 3:20 PM CDT 50 Units OLANZapine (ZYPREXA) tablet 5 mg 5 mg, Oral, ONCE, 1 dose, On Fri09/24/23 at 0930Indications:Breast cancer metastasized to axillary lymph node, right (HCC),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) Given 09/24/2023 9:34 AM CDT 5 mg ondansetron (ZOFRAN) injection 8 mg 8 mg, Intravenous, ONCE, 1 dose, On Fri09/24/23 at 0930Indications:Breast cancer metastasized to axillary lymph node, right (HCC),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 73 kg Treatment plan Recorded weight), Intravenous, ONCE, 1 dose, On Fri09/24/23 at 1130, Administered by IV infusion; loading doses are infused over 90 minutes; maintenance doses may be infused over 30 minutes if tolerated. Do not administer with D5W. Do not administer IV push or by rapid bolus. 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) New Bag 09/24/2023 11:35 AM CDT 588 mg documented in this encounter Additional Health Concerns Assessment Noted Time PHQ-9 Depression Total Score: 0 04/01/19 20 9:00 AM WIRE DRAWING MACHINE OPERATOR documented as of this encounter Care Teams Search Engine Optimization Strategist Relationship Specialty Start Date End Date Iveth Guzman MD [address] [place] [address] PCP - General Family Medicine 05/02/23 Laurence Luque MD [address] [address] Consulting Physician General Surgery 02/01/15 Clemencia Bennett MD [address] [place] [address] Family Medicine 01/30/18 Sony Mcpherson MD [address] [address] Consulting Physician General Surgery 09/08/23 documented as of this encounter
--- OUTSIDE RECORDS SUMMARY | 2024-03-15 01:49 | XMS_ITS | Encounter Summary ---
Author Organization [facility] Address [address] [facility] [address] Phone Care Team Providers Care Jacquard Plate Maker Name Role Phone Laurence Luque MD Unavailable [phone] Clemencia Bennett MD Unavailable [phone] Iveth Guzman MD Primary Care Provider [phone] Reason for Referral * Consult, Test & Initiate Treatment (Less Than 2 Weeks) - Closed Specialty Diagnoses / Procedures Referred By Martin laguna Referred To Contact General Surgery Diagnoses Mass overlapping multiple quadrants of right breast Lung nodule Jose R Pearson MD [address] [place] [address] Phone: tel: fax: [facility] - General Surgery - [place] [address] [address] Phone: tel: fax: Referral ID Status Reason Start Date Expiration Date Visits Re quested Visits Authorized [id number] Closed 09/05/2023 1 1 Scheduling Instructions Angie is being referred for port-a-cath placement. See below for Angie's current medications, allergies and problem list. Please contact patient for scheduling questions or concerns. CURRENT MEDS: Current Outpatient Medications: atorvastatin (LIPITOR) 10 MG Tablet, Take 1 tablet by mouth once daily, Disp: 90 Tablet, Rfl: 0 LORazepam (ATIVAN) 0.5 MG Tablet, Take 1 Tablet by mouth every 8 hours as needed for Anxiety., Disp: 30 Tablet, Rfl: 0 metoprolol tartrate (LOPRESSOR) 25 MG Tablet, Take 1 tablet by mouth twice daily, Disp: 180 Tablet, Rfl: 0 Multiple Vitamin (MULTI-VITAMIN PO), Take 1 Tab by mouth daily., Disp: , Rfl: triamcinolone (KENALOG) 0.1 % Cream, Application Site:apply sparingly bid to affected area, Disp: 45 g, Rfl: 2 No current facility-administered medications for this visit. ALLERGIES: No Known Allergies PROBLEM LIST: Patient Active Problem List: Mitral valve prolapse Essential hypertension Gastroesophageal reflux disease Breast cancer metastasized to axillary lymph node, right (HCC) Obesity (BMI 30.0-34.9) History of bilateral mastectomy Allergic rhinitis Pulmonary nodule Hyperlipidemia IFG (impaired fasting glucose) Mass overlapping multiple quadrants of right breast * Radiology Services (Routine) - Closed Specialty Diagnoses / Procedures Referred By Martin laguna Referred To Contact Radiology Diagnoses Mass overlapping multiple quadrants of right breast Lung nodule Procedures PET CT TUMOR IMAGING SKULL BASE TO MID THIGH Jose R Pearson MD [address] [place] [address] Phone: tel: fax: Referral ID Status Reason Start Date Expiration Date Visits Re quested Visits Authorized [id number] Closed 09/05/2023 1 1 Reason for Visit * Reason Comments Follow-up Encounter Details Date Type Department Care Team (Late st Contact Info) Description 09/05/2023 8:20 AM CDT Office Visit [facility] Oncology Services [address] [place] [address] Jose R Pearson MD [address] [place], [place] [id number] Mass overlapping multiple quadrants of right breast (Primary Dx); Lung nodule; 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); Breast cancer metastasized to axillary lymph node, [...] Sign Reading Time Taken Comments Blood Pressure 152/80 09/05/2023 8:21 AM CDT Pulse 56 09/05/2023 8:21 AM CDT Temperature 36.1 ??C (96.9 ??F) 09/05/2023 8:21 AM CD T Respiratory Rate 16 09/05/2023 8:21 AM CDT Oxygen Saturation 98% 09/05/2023 8:21 AM CDT Inhaled Oxygen Concentration - - Weight 73.9 kg (162 lb 14.4 oz) 09/05/2023 8:21 AM CDT Height 154.9 cm (5' 1 ) 09/05/2023 8:21 AM CDT Body Mass Index 30.78 09/05/2023 8:21 AM CDT documented in this encounter Progress Notes * Rosa Galvez - 09/05/2023 8:20 AM CDT Outpatient Hem/Onc Progress Note PROGRESS NOTE Angie Reed is a 53 y.o. female seen today for follow up of recurrent breast cancer after mastectomy involving the chest wall and axillary lymph nodes. Angie is here today ambulating without support accompanied by her Isaías to review recent imaging studies and NGS testing. She reports improvement in tearful episodes and anxiety since her last visit. Using Lorazepam 0.5 mg every q8hs as needed. Angie reports establishing with [facility] PT with improvements in lymphedema since starting manualmassage. She denies any recent fall or injury to explain lytic lesions identified on NM Bone scan. Patient denies any bone pain or deep chest pains. Angie denies any injections given to thigh. 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 Pertinent Negatives: HER2, ESR1, PIK3CA 2. Malignant breast neoplasm stage I: Pathologic stage T1cN0 -- s/p double mastectomy and right SLNB on 12/01/[address] Luque ---3 distinct foci of invasive ductal carcinoma measuring 11mm, 7mm, and 5mm. ER/DC strongly positive in all tumors that were biopsied. Negative HER2 status. OncotypeDX showed low risk RS (score of 16). BRCA1/2 negative -- Did not need adjuvant RT -- Started Lezama in 12/2013 which she is tolerating well. --last seen 02/21/16 with last Tamoxifen refill in 2017. Patient discontinued tamoxifen on her own in 2017 Reviewed patients past medical, surgical, social, and family history. No outpatient medications have been marked as taking for the 09/05/23 encounter (Appointment) with Jose R Pearson MD. Allergies as of 09/05/2023 (No Known Allergies) REVIEW OF SYSTEMS Review of Systems Constitutional: Negative for malaise/fatigue and weight loss. Eyes: Negative for blurred vision. Respiratory: Negative for cough and shortness of breath. Cardiovascular: Negative for leg swelling. Gastrointestinal: Negative for constipation, diarrhea, heartburn and nausea. Musculoskeletal: Negative for joint pain. Neurological: Negative for dizziness, weakness and headaches. Psychiatric/Behavioral: The patient is nervous/anxious. Physical Exam Physical Exam Chest: Breasts: Right: Skin change present. Comments: Cutaneous nodules with small puss points on the right incision line Improvement in swelling associated with lymphedema PAIN ASSESSMENT: no verbal pain complaints today. DATA: Lab Results Component Value Date WBC 7.36 08/26/2023 RBC 5.10 08/26/2023 HEMOGLOBIN 15.4 08/26/2023 HEMATOCRIT 45.1 08/26/2023 MCV 88.4 08/26/2023 MCH 30.2 08/26/2023 MCHC 34.1 08/26/2023 PLATELETCNT 315 08/26/2023 RDW 11.9 08/26/2023 LYMPHOCYTES 27.7 08/26/2023 RELEOS 1.0 08/26/2023 RELBAS 0.8 08/26/2023 ANC 4.71 08/26/2023 MONOCYTES 0.48 08/26/2023 EOSINOPHILS 0.07 08/26/2023 BASOPHILS 0.06 08/26/2023 Lab Results Component Value Date SODIUM 140 08/26/2023 POTASSIUM 3.8 08/26/2023 CHLORIDE 103 08/26/2023 ANIONGAP 18.8 (H) 08/26/2023 GLUCOSE 104 (H) 08/26/2023 BUN 11 08/26/2023 CREATININE 1.03 (H) 08/26/2023 TOTALPROTEIN 8.2 08/26/2023 ALBUMIN 4.9 08/26/2023 CALCIUM 10.4 08/26/2023 SGPTALT 32 08/26/2023 ALKALINEPHO 83 08/26/2023 FINAL DIAGNOSIS Date Value Ref Range Status 08/20/2023 Final A. Breast, right upper inner quadrant, 7 cm from center area 2, ultrasound guided needle biopsy: - Invasive carcinoma of no special type (ductal) - Brick histologic grade Glandular/tubular differentiation: Score 3 Nuclear pleomorphism: Score 3 Mitotic rate: Score 3 Overall grade: Grade 3 - Largest invasive focus is limited sample: 7 mm - Ductal carcinoma in Situ: Not identified - Lymphovascular invasion: Not identified - Microcalcifications: Not identified B. Axilla, right, ultrasound guided needle biopsy: - Metastatic adenocarcinoma consistent with breast primary - Extensive areas of necrosis are observed. Amendment Her2 FISH Analysis: POSITIVE/ AMPLIFIED Results are available in Media Tab. Lab Results Component Value Date FSH 70.0 08/26/2023 LH 28.5 08/26/2023 ESTRADIOL 28 08/26/2023 DIAGNOSTIC IMAGING STUDIES: 09/01/23 CT C/A/P: IMPRESSION: 1. Status post bilateral mastectomy with [...] evidence of metastatic disease in the abdomen 09/01/23 NM BONE SCAN: IMPRESSION: 1. Focal uptake in the medial [...] for further evaluation of the above findings. 08/18/23 US RIGHT CHEST AND AXILLA: IMPRESSION: HIGHLY SUGGESTIVE OF MALIGNANCY Thickened erythematous skin with ulceration and scabbing concerning for ulcerated mass. There are multiple nodules within the tissues of the superior postsurgical chest suspicious for malignancy. Multiple right axillary lymph nodes suspicious for malignancy. Recommend ultrasound-guided biopsy of the more superficial mass in the upper inner quadrant 7 cm from the center scar labeled #2. Recommend ultrasound-guided right axillary lymph node biopsy of the more superficial appearing abnormal lymph node labeled #1. Oncologic consultation and skin punch biopsy may be considered if clinically appropriate. Assessment: Recurrent breast cancer to chest wall and right axillary lymph nodes, ER positive, DC positive, HER2 Gabriel Positive by FISH -- germline BRCA1/2 negative History of multifocal right breast cancer in 2013 -- status post bilateral mastectomy No menstrual period since 2018. Hypertension and hyperlipidemia Plan: 2. Obtain Echocardiogram in preparation for anti-HER2 medications in treatment of triple positive breast cancer. Reviewed these medications can only be given to patients with adequate cardiac function given risk for decreased cardiac function associated with these medications. 3. Obtain PET CT to assess for hypermetabolic activity in the subtle lesions identified on the NM Bone scan. 4. Patient will be started on TCHP given every 3 weeks for a total of 4 cycles followed by HP every3 weeks for treatment of HER2 positive breast cancer. She will be given growth factor to prevent severe infections from developing secondary to TC. Discussed with patient common side effects of systemic chemotherapy agents including but not limited to nausea, hair loss, diarrhea, increased risk of infection, fatigue, risk of allergic reaction/anaphylaxis etc. Discussed chemotherapy drugs, duration, number of cycles, side effects of the chemotherapy regimen, including Hematological, Cardiovascular, Neurological, Gastrointestinal, Dermatological, Musculoskeletal, Metabolism and nutritional sideeffects. Risk of infection, possible hospital admission, need for transfusion of RBC or platelets, bleeding risk, second malignancies, extravasation injury were also discussed. After careful consideration of risk and benefits of treatment, pt has agreed to proceed with chemo treatment. Discussed pre/post treatment medication to prevent intolerable side effects.Will be sent once treatment start date scheduled. 5. Referral to [facility] for port-a-cath placement given need for recurrent venous accessfor treatment and labs required to monitor levels prior to receiving treatment. 6. Continue Lorazepam 0.5 mg every 8 hours as needed for anxiety due to current medical condition. Patient was encouraged to use this sparingly to prevent addiction. 7. Angie was encouraged to eat small meals frequently throughout the day to maintain caloric intakeand maintain weight while on treatment. Advised against any drastic diet modifications in attempt to prevent disease progression. Encouraged balanced nutrition with lean proteins, vegetables, fruits,and other high fiber foods. Patient was encouraged to use supplemental protein shakes as needed to supplement missed meals. Start treatment week of September 21 to allow for pretreatment testing. Follow up 1 week after starting treatment The patient was given an opportunity to ask questions, and all questions answered to patient's satisfaction. Patient verbalizes understanding of the plan as outlined above. The documentation for this visit was completed by Rosa Galvez acting as a scribe for Jose R Wilkes MD. 09/05/2023, 7:55 AM CDT * Jose R Pearson MD - 09/05/2023 8:20 AM CDT Outpatient Hem/Onc Progress Note PROGRESS NOTE Angie Reed is a 53 y.o. female seen today for follow up of recurrent breast cancer after mastectomy involving the chest wall and axillary lymph nodes. Angie is here today ambulating without support accompanied by her Isaías to review recent imaging studies and NGS testing. She reports improvement in tearful episodes and anxiety since her last visit. Using Lorazepam 0.5 mg every q8hs as needed. Angie reports establishing with [facility] PT with improvements in lymphedema since starting manualmassage. She denies any recent fall or injury to explain lytic lesions identified on NM Bone scan. Patient denies any bone pain or deep chest pains. Angie denies any injections given to thigh. 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 Pertinent Negatives: HER2, ESR1, PIK3CA 2. Malignant breast neoplasm stage I: Pathologic stage T1cN0 -- s/p double mastectomy and right SLNB on 12/01/[address] Luque ---3 distinct foci of invasive ductal carcinoma measuring 11mm, 7mm, and 5mm. ER/DC strongly positive in all tumors that were biopsied. Negative HER2 status. OncotypeDX showed low risk RS (score of 16). BRCA1/2 negative -- Did not need adjuvant RT -- Started Lezama in 12/2013 which she is tolerating well. --last seen 02/21/16 with last Tamoxifen refill in 2017. Patient discontinued tamoxifen on her own in 2017 Reviewed patients past medical, surgical, social, and family history. Outpatient Medications Marked as Taking for the 09/05/23 encounter (Office Visit) with Jose R Pearson MD Medication Sig Dispense Refill [DISCONTINUED] atorvastatin (LIPITOR) 10 MG Tablet Take 1 tablet by mouth once daily 90 Tablet 0 [DISCONTINUED] LORazepam (ATIVAN) 0.5 MG Tablet Take 1 Tablet by mouth every 8 hours as needed for Anxiety. 30 Tablet 0 [DISCONTINUED] metoprolol tartrate (LOPRESSOR) 25 MG Tablet Take 1 tablet by mouth twice daily (Patient taking differently: 2 times daily.) 180 Tablet 0 Multiple Vitamin (MULTI-VITAMIN PO) Take 1 Tab by mouth daily. triamcinolone (KENALOG) 0.1 % Cream Application Site:apply sparingly bid to affected area 45 g 2 Allergies as of 09/05/2023 (No Known Allergies) REVIEW OF SYSTEMS Review of Systems Constitutional: Negative for malaise/fatigue and weight loss. Eyes: Negative for blurred vision. Respiratory: Negative for cough and shortness of breath. Cardiovascular: Negative for leg swelling. Gastrointestinal: Negative for constipation, diarrhea, heartburn and nausea. Musculoskeletal: Negative for joint pain. Neurological: Negative for dizziness, weakness and headaches. Psychiatric/Behavioral: The patient is nervous/anxious. Physical Exam Physical Exam Chest: Breasts: Right: Skin change present. Comments: Cutaneous nodules with small puss points on the right incision line Improvement in swelling associated with lymphedema PAIN ASSESSMENT: no verbal pain complaints today. DATA: Lab Results Component Value Date WBC 7.43 10/14/2023 RBC 3.88 10/14/2023 HEMOGLOBIN 11.6 (L) 10/14/2023 HEMATOCRIT 34.8 (L) 10/14/2023 MCV 89.7 10/14/2023 MCH 29.9 10/14/2023 MCHC 33.3 10/14/2023 PLATELETCNT 266 10/14/2023 RDW 12.6 10/14/2023 LYMPHOCYTES 9.2 (L) 10/14/2023 RELEOS 0.0 10/14/2023 RELBAS 0.1 10/14/2023 ANC 6.69 10/14/2023 MONOCYTES 0.05 (L) 10/14/2023 EOSINOPHILS 0.00 10/14/2023 BASOPHILS 0.01 10/14/2023 Lab Results Component Value Date SODIUM 140 10/14/2023 POTASSIUM 4.0 10/14/2023 CHLORIDE 107 10/14/2023 ANIONGAP 15.0 10/14/2023 GLUCOSE 194 (H) 10/14/2023 BUN 12 10/14/2023 CREATININE 0.78 10/14/2023 TOTALPROTEIN 6.6 10/14/2023 ALBUMIN 4.1 10/14/2023 CALCIUM 9.6 10/14/2023 SGPTALT 44 10/14/2023 ALKALINEPHO 99 10/14/2023 FINAL DIAGNOSIS Date Value Ref Range Status 08/20/2023 Final A. Breast, right upper inner quadrant, 7 cm from center area 2, ultrasound guided needle biopsy: - Invasive carcinoma of no special type (ductal) - Pool histologic grade Glandular/tubular differentiation: Score 3 Nuclear pleomorphism: Score 3 Mitotic rate: Score 3 Overall grade: Grade 3 - Largest invasive focus is limited sample: 7 mm - Ductal carcinoma in Situ: Not identified - Lymphovascular invasion: Not identified - Microcalcifications: Not identified B. Axilla, right, ultrasound guided needle biopsy: - Metastatic adenocarcinoma consistent with breast primary - Extensive areas of necrosis are observed. Amendment Her2 FISH Analysis: POSITIVE/ AMPLIFIED Results are available in Media Tab. Lab Results Component Value Date FSH 70.0 08/26/2023 LH 28.5 08/26/2023 ESTRADIOL 28 08/26/2023 DIAGNOSTIC IMAGING STUDIES: 09/01/23 CT C/A/P: IMPRESSION: 1. Status post bilateral mastectomy with [...] evidence of metastatic disease in the abdomen 09/01/23 NM BONE SCAN: IMPRESSION: 1. Focal uptake in the medial [...] for further evaluation of the above findings. 08/18/23 US RIGHT CHEST AND AXILLA: IMPRESSION: HIGHLY SUGGESTIVE OF MALIGNANCY Thickened erythematous skin with ulceration and scabbing concerning for ulcerated mass. There are multiple nodules within the tissues of the superior postsurgical chest suspicious for malignancy. Multiple right axillary lymph nodes suspicious for malignancy. Recommend ultrasound-guided biopsy of the more superficial mass in the upper inner quadrant 7 cm from the center scar labeled #2. Recommend ultrasound-guided right axillary lymph node biopsy of the more superficial appearing abnormal lymph node labeled #1. Oncologic consultation and skin punch biopsy may be considered if clinically appropriate. Assessment: Recurrent breast cancer to chest wall and right axillary lymph nodes, ER positive, DC positive, HER2 Gabriel Positive by FISH -- germline BRCA1/2 negative History of multifocal right breast cancer in 2013 -- status post bilateral mastectomy No menstrual period since 2018. Hypertension and hyperlipidemia Plan: 1. Reviewed above clinical data including recent symptoms, labs, imaging and pathology results withpatient and family. Made them aware of met breast ca ER and HER2 posituve . Discussed diagnosis, treatment options and prognostic implication of disease. 2. Obtain Echocardiogram in preparation for anti-HER2 medications in treatment of triple positive breast cancer. Reviewed these medications can only be given to patients with adequate cardiac function given risk for decreased cardiac function associated with these medications. 3. Obtain PET CT to assess for hypermetabolic activity in the subtle lesions identified on the NM Bone scan. 4. Patient will be started on TCHP given every 3 weeks for a total of 4 cycles followed by HP every3 weeks for treatment of HER2 positive breast cancer. She will be given growth factor to prevent severe infections from developing secondary to TC. Discussed with patient common side effects of systemic chemotherapy agents including but not limited to nausea, hair loss, diarrhea, increased risk of infection, fatigue, risk of allergic reaction/anaphylaxis etc. Discussed chemotherapy drugs, duration, number of cycles, side effects of the chemotherapy regimen, including Hematological, Cardiovascular, Neurological, Gastrointestinal, Dermatological, Musculoskeletal, Metabolism and nutritional sideeffects. Risk of infection, possible hospital admission, need for transfusion of RBC or platelets, bleeding risk, second malignancies, extravasation injury were also discussed. After careful consideration of risk and benefits of treatment, pt has agreed to proceed with chemo treatment. Discussed pre/post treatment medication to prevent intolerable side effects.Will be sent once treatment start date scheduled. 5. Referral to [facility] for port-a-cath placement given need for recurrent venous accessfor treatment and labs required to monitor levels prior to receiving treatment. 6. Continue Lorazepam 0.5 mg every 8 hours as needed for anxiety due to current medical condition. Patient was encouraged to use this sparingly to prevent addiction. 7. Angie was encouraged to eat small meals frequently throughout the day to maintain caloric intakeand maintain weight while on treatment. Advised against any drastic diet modifications in attempt to prevent disease progression. Encouraged balanced nutrition with lean proteins, vegetables, fruits,and other high fiber foods. Patient was encouraged to use supplemental protein shakes as needed to supplement missed meals. Start treatment week of September 21 to allow for pretreatment testing. Follow up 1 week after starting treatment The patient was given an opportunity to ask questions, and all questions answered to patient's satisfaction. Patient verbalizes understanding of the plan as outlined above. The documentation for this visit was completed by Rosa Galvez acting as a scribe for Jose R Wilkes MD. The documentation recorded by the scribe was completed while in the exam room with me and the patient. The documentation accurately reflects the service I personally performed and the decisions made by me. I have confirmed and edited the documentation as necessary. Jose R Pearson MD documented in this encounter Plan of Treatment Upcoming Encounters Date Type Department Care Team (Late st Contact Info) Description 03/23/2024 1:00 PM MOVIE CRITIC Appointment [facility] Cardiology Services [address] [place] [address] Jose R Pearson MD [address] [place] [address] Discharge Disposition: Discharged to home or Selfcare 03/23/2024 2:30 PM MOVIE CRITIC Appointment [facility] [address] [place] [address] Jose R Pearson MD [address] [place] [address] Discharge Disposition: Discharged to home or Selfcare 03/30/2024 10:00 AM MOVIE CRITIC Office Visit [facility] Oncology Services [address] [place] [address] Jose R Pearson MD [address] [place] [address] Discharge Disposition: Discharged to home or Selfcare 03/30/2024 10:30 AM MOVIE CRITIC Lab [facility] Oncology Services [address] [place] [address] Discharge Disposition: Discharged to home or Selfcare 03/31/2024 1:00 PM MOVIE CRITIC Clinical Support [facility] Oncology Services [address] [place] [address] Jose R Pearson MD [address] [place] [address] Discharge Disposition: Discharged to home or Selfcare 04/28/2024 1:30 PM MOVIE CRITIC Clinical Support [facility] Oncology Services [address] [place] [address] Discharge Disposition: Discharged to home or Selfcare Scheduled Referrals Name Type Priority Associated Diagnoses Order Schedule GEN SURGICAL REFERRAL Outpatient Referral Less Than 2 weeks Mass overlapping multiple quadrants of right breast Lung nodule Expected: 09/05/2023, Expires: 11/05/2023 documented as of this encounter Goals Goal Patient Goal Type Associated Problems Recent Progress Patient-Stated? Author Exercise 3x per week (30 min per time) Exercise No Chica Saldana MD documented as of this encounter Results * PET CT TUMOR [...] AM T: ??09/19/2023 9:12 AM Report ID: [id number] Reading Location: ??[id number] Procedure Note Yanick Stephens Jr., MD - [...] Yanick Stephens M.D. CH: BELA Report ID: [id number] Reading Location: [id number] IMPRESSION: Large hypermetabolic infiltrative right chest wall [...] be recommended. Postsurgical changes from left mastectomy. 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 [address] PCP - General Family Medicine 05/02/23 Laurence Luque MD #[address] [address] Consulting Physician General Surgery 02/01/15 Clemencia Bennett MD [address] [place] [address] Family Medicine 01/30/18 documented as of this encounter
--- OUTSIDE RECORDS SUMMARY | 2024-03-15 01:49 | XMS_ITS | Encounter Summary ---
Author Organization [facility] Address [address] [facility] [address] Phone Care Team Providers Care Lead Business Systems Analyst Name Role Phone Laurence Luque MD Unavailable [phone] Clemencia Bennett MD Unavailable [phone] Iveth Guzman MD Primary Care Provider [phone] Reason for Visit * PT/OT/ST (Routine) - Open Specialty Diagnoses / Procedures Referred By Martin laguna Referred To Contact Rehabilitation Diagnoses Recurrent malignant neoplasm of right breast (HCC) Jose R Pearson MD [address] [place] [address] Phone: tel: fax: [facility] at [facility] [address], [address] [address] Phone: tel: fax: Referral ID Status Reason Start Date Expiration Date Visits Re quested Visits Authorized [id number] Open 08/26/2023 1 60 Encounter Details Date Type Department Care Team (Late st Contact Info) Description 08/28/2023 2:00 PM CDT Lymphedema [facility] [address], [place] [address] [address] Jose R Pearson MD [address] [place] [address] Iveth Aragon, PT [place] Lymphedema (Primary Dx); Recurrent malignant neoplasm of right breast (HCC); Postmastectomy lymphedema syndrome; Shoulder pain Discharge Disposition: Discharged to home [...] of Care - Iveth Aragon, PT - 08/28/2023 2:00 PM CDT Initial Evaluation - Electronically signed by: IVETH ARAGON, PT August 28, 2023 SUBJECTIVE: Primary complaint: Swelling in right arm and chest Patient Narrative: Angie Reed is a 53 y.o. female with Lymphedema of with a gradual onset that began in 2022. She was diagnosed with breast cancer in 2013. She had bilateral mastectomies. She did not have radiation or chemo at that time. She recently noticed that she had swelling and redness and tenderness. She was recently diagnosed with a recurrence of breast cancer.Patient denies history of infections. She complains of tightness in the right chest, shoulder. If she reaches too high it feels like her chest is going to open up. She feels like the skin is tight, AND the shoulder joint is tight. She has notbeen wearing her prosthesis or bra for the past 8 months due to discomfort. She still has to get a PET scan and some blood work. She goes back to Dr. Centeno next Friday. Previous treatment for edema has included none. Patient denies prior therapy this year for this or any other condition. Current Level of function: Patient currently reports difficulty with Reaching over head. . Prior level of function: No restrictions or pain in her shoulder or chest. Single Pain Site 1) Right chest/ side current pain 1/10. It goes up to 3/10 - Intermittent, described as ache Pertinent Past Medical History including: Hypertension Patient is Right side dominant. Work/Hobbies/Activities: She cares for 3 grand children. Home environment: She lives with and grand children are close. Patient's goal for Physical Therapy: Decrease swelling Learn how to manage edema Minimize rate of infection Decrease pain and stiffness. Patient learning style: - Barriers to learning: language - Preferred learning style: demonstration Written attendance policy reviewed Yes OBJECTIVE Lymphedema: Palpation: Significant swelling in the right anterior chest area. It is fibrotic. It is mainly superior to themastectomy scar, but there is some swelling inferior to the scar. There is also swelling on the lateral chest- inferior to the axilla. The mastectomy scar has an area of redness which is apparently due to cancer. The right arm has swelling, mainly in the upper third of the arm, as well as just distal to the elbow. Soft fibrosis noted in the areas of swelling. Mastectomy scars are tight and seem to have some adherence to chest. Special Tests: Comments: Lymphedema Life Impact Scale: Score: 23/72, 32% Upper Extremity Assessment: Right shoulder flexion and abduction are painful and 170 degrees. Coordination: Fine Motor Left: Intact Upper Extremity Circumferential Measurements (in centimeters): Axilla 97 cm Bust 95 cm Location: hand Right: 19.2 Left: 19.1 Difference: 0.1 Location: wrist Right: 16.4 Left: 16.2 Difference: 0.2 Location: 4 cm Right: 17.4 Left: 17.6 Difference: 0.2 Location: 8 cm Right: 19.4 Left: 20.2 Difference: 0.8 Location: 12 cm Right: 24 Left: 23 Difference: 1 Location: 16 cm Right: 25.3 Left: 25.2 Difference: 0.1 Location: 20 cm Right: 27.3 Left: 25.5 Difference: 1.8 Location: 24 cm Right: 27 Left: 27.4 Difference: 0.4 Location: 28 cm Right: 34.5 Left: 32.5 Difference: 2 Location: 32 cm Right: 36.9 Left: 37 Difference: 0.1 Location: 36 cm Right: 38 Left: 38 Difference: 0 Location: 40 cm Right: 37.7 Left: 36.2 Difference: 1.5 Volume (in mL): Right: 3000.02 Left: 2893.55 Difference: 106.47 TREATMENT: Learner: patient Readiness: eager Method: explanation and handout Pt received an evaluation this date. Pt was educated on the findings of the evaluation and on the plan of care. Pt was in agreement with the plan of care. Pt was educated on the importance of consistent attendance and following the home program. Attendance policy was reviewed and pt was in agreement. Educated pt on what lymphedema is and how we treat it in physical therapy. We will get a compression sleeve LYNNE. She needs compression on her chest, but we might wait and see if we can get the swelling in her chest to go down with manual lymphatic drainage before we try a compression bra. ASSESSMENT: Therapy Diagnosis: Stage 2 upper extremity and truncal secondary Lymphedema. Medical Diagnosis: Recurrent malignant neoplasm of right breast (HCC) Angie Reed is a 53 y.o. patient referred to Physical Therapy with deficits noted including impairments of decreased ROM, increased pain, joint hypomobility, and fibrosis which contribute to the following areas of functional restriction or limitation Decreased ability to reach over head, lie on her right side, sleep, Clinical impression at this time: Patient will benefit from ongoing skilled Physical Therapy intervention. Rehab potential: good for the physical therapy goals Complexities that are a barrier to service: Lymphedema can be difficult to manage with metastatic Breast Cancer. Early management is huffman. Preferred Language: Burmese. Burmese is not her first language. However she states she is most comfortable communicating through Burmese. She declined an transmission specialist. All charges entered today are appropriate and separate from each other. PLAN Goals to be achieved by discharge. [...] for the following interventions: - Therapeutic Exercise (56629) - Manual Therapy, including Manual Lymphatic Drainage (04032) - Self Care / Home Management Training (61723) - Therapeutic Activity (23208) - Compression garment - Compression pump assessment - Home exercise program instruction Precautions: Lymphedema and Cancer Treatment may be altered based on patient progression and symptoms. The plan of care, as well as the benefits and risks of therapy were reviewed with the patient and the patient consented to treatment. Thank you for the opportunity to work with this individual.. Cosigned by Jose R Pearson MD at 08/28/2023 3:32 PM CDT documented in this encounter Plan of Treatment Upcoming Encounters Date Type Department Care Team (Late st Contact Info) Description 03/23/2024 1:00 PM GRINDER SET UP OPERATOR SURFACE Appointment [facility] [address] [place] [address] Jose R Pearson MD [address] [place] [address] Discharge Disposition: Discharged to home or Selfcare 03/23/2024 2:30 PM GRINDER SET UP OPERATOR SURFACE [facility]ointment [facility] [address] [place] [phone] Jose R Pearson MD [address] [place] [address] Discharge Disposition: Discharged to home or Selfcare 03/30/2024 10:00 AM GRINDER SET UP OPERATOR SURFACE Office Visit [facility] Oncology Services [address] [place] [address] Jose R Pearson MD [address] [place] [address] Discharge Disposition: Discharged to home or Selfcare 03/30/2024 10:30 AM GRINDER SET UP OPERATOR SURFACE Lab [facility] [address] [place] [phone] Discharge Disposition: Discharged to home or Selfcare 03/31/2024 1:00 PM GRINDER SET UP OPERATOR SURFACE Clinical Support [facility]cology Services [address] [place] [address] Jose R Pearson MD [address] [place] [address] Discharge Disposition: Discharged to home or Selfcare 04/28/2024 1:30 PM GRINDER SET UP OPERATOR SURFACE Clinical Support [facility] [address] [place] [address] Discharge Disposition: Discharged to home or Selfcare documented as of this encounter Goals Goal Patient Goal Type Associated Problems Recent Progress Patient-Stated? Author Exercise 3x per week (30 min per time) Exercise Chica Louis MD documented as of this encounter Visit Diagnoses Diagnosis Lymphedema- Primary Other lymphedema Recurrent malignant neoplasm of right breast (HCC) Postmastectomy lymphedema syndrome Shoulder pain Pain in joint, shoulder region documented in this encounter Additional Health Concerns Assessment Noted Time PHQ-9 Depression Total Score: 0 04/01/19 20 9:00 AM GRINDER SET UP OPERATOR SURFACE documented as of this encounter Care Teams Lead Business Systems Analyst Relationship Specialty Start Date End Date Iveth Guzman MD [address] [place] [address] PCP - General Family Medicine 05/02/23 Laurence Luque MD #[address] [address] Consulting Physician General Surgery 02/01/15 Clemencia Bennett MD [address] [place] [address] Family Medicine 01/30/18 documented as of this encounter
--- OUTSIDE RECORDS SUMMARY | 2024-03-15 01:49 | XMS_ITS | Encounter Summary ---
Author Organization [facility] Address [address] [place] [address] Phone Care Team Providers Care General Road Production Manager Name Role Phone Laurence Luque MD Unavailable Clemencia Bennett MD Unavailable [phone] Iveth Guzman MD Primary Care Provider Sony Mcpherson MD Unavailable [phone] Reason for Visit * Radiology Services (Less Than 2 Weeks) - Closed Specialty Diagnoses / Procedures Referred By Martin laguna Referred To Contact Radiology Diagnoses Mass overlapping multiple quadrants of right breast Lung nodule Procedures ADULT TRANS THORACIC ECHO 2D COMPLT W CONT ADULT TRANS THORACIC ECHO 2D COMPLETE Jose R Pearson MD [address] [place] [address] Phone: tel: fax: Referral ID Status Reason Start Date Expiration Date Visits Re quested Visits Authorized [id number] Closed 09/05/2023 1 1 Encounter Details Date Type Department Care Team (Latest Contact Info) Description 09/16/2023 3:45 PM CDT - 09/16/2023 11:59 PM CDT Hospital Encounter [facility] Cardiology Services [address] [place] [phone] Jose R Pearson MD [address] [place] [address] Discharge Disposition: Discharged to home or Selfcare [...] st Contact Info) Description 03/23/2024 1:00 PM TELEPHONE DIRECTORY DISTRIBUTOR DRIVER Appointment [facility] Cardiology Services [address] [place] [address] Jose R Pearson MD [address] [place] [address] Discharge Disposition: Discharged to home or Selfcare 03/23/2024 2:30 PM TELEPHONE DIRECTORY DISTRIBUTOR DRIVER Appointment [facility] [address] [facility] [place] [address] Jose R Pearson MD [address] [place] [address] Discharge Disposition: Discharged to home or Selfcare 03/30/2024 10:00 AM TELEPHONE DIRECTORY DISTRIBUTOR DRIVER Office Visit [facility] Oncology Services [address] [place] [address] Jose R Pearson MD [address] [place] [address] Discharge Disposition: Discharged to home or Selfcare 03/30/2024 10:30 AM TELEPHONE DIRECTORY DISTRIBUTOR DRIVER Lab [facility] [address] [place] [phone] Discharge Disposition: Discharged to home or Selfcare 03/31/2024 1:00 PM TELEPHONE DIRECTORY DISTRIBUTOR DRIVER Clinical Support [facility] Oncology Services [address] [place] [phone] Jose R Pearson MD [address] [place] [address] Discharge Disposition: Discharged to home or Selfcare 04/28/2024 1:30 PM TELEPHONE DIRECTORY DISTRIBUTOR DRIVER Clinical Support [facility] Oncology Services [address] [place] [phone] Discharge Disposition: Discharged to home or Selfcare documented as of this encounter Goals Goal Patient Goal Type Associated Problems Recent Progress Patient-Stated? Author Exercise 3x per week (30 min per time) Exercise Chica Louis MD documented as of this encounter Procedures Procedure Name Priority Date/Time Associated Diagnosis Comments ADULT TRANS THORACIC ECHO 2D COMPLT W CONT Less Than 2 weeks 09/16/2023 4:51 PM CDT Mass overlapping multiple quadrants of right breast Lung nodule documented in this encounter Results * ADULT TRANS THORACIC ECHO 2D COMPLT W CONT (09/16/2023 4:51 PM CDT) AV Peak Grad mmHg 6.76 mmHg RESULTING AGENCY Mean Aortic Valve Gradient (MAVG) 3 mmHg RESULTING AGENCY LV end jenelle diam cm 4.15 cm RESULTING AGENCY LV end sys diam cm 2.65 cm RESULTING AGENCY Aortic Root Diam cm 2.2 cm RESULTING AGENCY LA vol index ml/m2 23 ml/m2 RESULTING AGENCY LVOT Peak Maykel m/sec 1.09 m/sec RESULTING AGENCY AV Peak Maykel m/sec 1.3 m/sec RESULTING AGENCY MV Mean Grad mmHg 2 mmHg RESULTING AGENCY MVA by PHT cm2 3.49 cm2 RESUL TING AGENCY E/A Ratio 0.88 RESULTING AGENCY TR Maykel m/sec 3.28 m/sec RESULTI NG AGENCY E/E' 10.6 RESULTING AGENCY AV Area (VTI) cm2 2.39 cm2 RESULTING AGENCY SEPTUM DIASTOLIC CM 0.76 cm RESULTING AGENCY PW DIASTOLIC CM 1.05 cm RESU LTING AGENCY LA VOLUME 40.2 ml RESULTING AGENCY LV EF(estimated)% 65 RESULTING AGENCY Anatomical Region Laterality Modality CARDIO N/A Ultrasound Narrative 09/16/2023 10:34 PM CDT Transthoracic Echocardiography Report (TTE) Patient name ? CRYSTAL JOHNNA ? 1970 Patient ID (UPI) ? [id number] ? Indications: Adverse Effect of Chemotherapy. Study Date09/16/2023 Technical quality: Limited visualization Limitation Reason: Lung artifact Type of Study: TTE procedure: . Priority:RoutineHR: 61 bpmBP: 164/80 mmHg Contrast Medium: Lumason. Amount - 5 ml Conclusions Summary Normal LV size, thickness, systolic function. LVEF est 65%. Grade 1 diastolic dysfunction. GLS -24%. Normal right ventricular cavity size and normal systolic function. No significant valvular abnormalities. PASP est 45 mmHg. Upper normal LA size. Normal IVC, visualized portion of aorta. Bubble study negative for shunt. Findings Mitral Valve The mitral valve is normal. There is no evidence of mitral stenosis. There is no significant mitral regurgitation. Aortic Valve The aortic valve is trileaflet with normal leaflet excursion. There is no evidence of aortic valve stenosis. There is no significant aortic valve insufficiency. Tricuspid Valve The tricuspid valve is normal. There is no evidence of tricuspid stenosis. There is no significant tricuspid regurgitation. PASP est 45 mmHg. Pulmonic Valve The pulmonic valve structure appears normal. There is no evidence of pulmonic stenosis. There is no significant pulmonic valve regurgitation. Left Atrium Upper normal size Left Ventricle Normal LV size, thickness, systolic function. LVEF est 65%. Grade 1 diastolic dysfunction. GLS -24%. Right Atrium The right atrium size is normal. Right Ventricle Normal right ventricular cavity size and normal systolic function. Pericardial Effusion No evidence of pericardial effusion. Miscellaneous Aortic root and proximal ascending aorta are normal in size. Atrial septum appears intact. IVC is normal in size and respiratory response. Aortic arch appears normal. Bubble study negative for shunt. Valves Mitral Valve Area (PHT): 3.49 cm^2 ? Area (continuity): 1.82 cm^2 Peak E-Wave: 0.90 m/s ? Mean Velocity: 0.62 m/s Peak A-Wave: 1.03 m/s ? Mean Gradient: 2 mmHg Peak Gradient: 3.25 mmHg ?Deceleration Time: 216 msec P1/2t: 63 msec Tissue Doppler E' Velocity: 0.08 m/s ? E/E':10.6 E/A Ratio: 0.88 ? E/Lat E': 10.6 ? E/Med E':10.5 Aortic Valve Area (continuity): 2.39 cm^2 ? Mean Velocity: 0.85 m/s Area (VTI):2.38 cm^2 ? Mean Gradient: 3 mmHg Peak Velocity: 1.3 m/s ? AV VTI: 26.3 cm Peak Gradient: 6.76 mmHg Tricuspid Valve Peak E-Wave: 0.51 m/s Peak Gradient: 1.06 mmHg TR Velocity: 3.28 m/s TR Gradient: 43.03 mmHg Pulmonic Valve Peak Velocity: 1.02 m/s ?Mean Velocity: 0.74 m/s Peak Gradient: 4.16 mmHg ? Mean Gradient: 3 mmHg LVOT Peak Velocity: 1.09 m/s ? Mean Velocity: 0.69 m/s Peak Gradient: 5 mmHg ? Mean Gradient: 2 mmHg LVOT Diameter: 1.9 cm ? LVOT VTI: 22.1 cm Stroke Volume: 63 ml ?Stroke Volume Index: 36.63 ml/m^2 Structures Left Ventricle Diastolic Dimension: 4.15 cm ? Systolic Dimension: 2.65 cm Septum Diastolic: 0.76 cm ?Septum Systolic: 1.22 cm PW Diastolic: 1.05 cm ?PW Systolic: 1.08 cm Diastolic Length: 25.5 cm ?Systolic Length: 9.49 cm EF Calculated: 70.75% ?CI: 2.22 l/min*m^2 CO: 3.82 l/min RWT: 0.51 ?LV EDV: 71.1 ml FS: 36.14 % ?LV EDV Index: 41 m^2 LV Length: 7.49 cm ? LV ESV: 20.8 ml LVOT Diameter: 1.9 cm ?LV ESV Index: 12 m^2 Global Longitudinal Strain:-24.3 Right Ventricle ? RVOT (PLAX) diameter:3.34 cm Tissue Doppler RV S': 12.8 TAPSE: 2.35 cm Left Atrium LA Systolic Pressure: 15.28 mmHg ? LA Area: 17.3 cm^2 ?LA Volume: 40.2 ml ?LA Index: 23ml/m^2 Right Atrium ?RA Area: 14.4 cm^2 Great Vessels Aorta ? Ascending Aorta: 3 cm Aorta Root:2.2 cm ? Ascending Aorta Index:1.74 cm/m^2 Contractility Score LV regional wall motion: (0-Not visualized 1-Normal 1'-Hyperkinesis 2-Hypokinesis 3-Akinesis 4-Dyskinesis 5-Aneurysm) Demographics Age ?53 ?Gender ? Female Race ? Height ? 61 in. ?Weight ? 161 lbs. ?BMI (BSA) ?30.42 kg/m^2 (1.72 ? m^2) Anesthesiology Technologist ?Franklin Desi Interpreting ? Constanza ? Referring Physician ?Benji ?Physician Procedure Note Benji Apodaca MD PhD - 09/17/2023 Transthoracic Echocardiography Report (TTE) Patient name CRYSTAL Laguna 1970 Patient ID (UPI) [id number] Indications: Adverse Effect of Chemotherapy. Study Date09/16/2023 Technical quality: Limited visualization Limitation Reason: Lung artifact Type of Study: TTE procedure: . Priority:RoutineHR: 61 bpmBP: 164/80 mmHg Contrast Medium: Lumason. Amount - 5 ml Conclusions Summary Normal LV size, thickness, systolic function. LVEF est 65%. Grade 1 diastolic dysfunction. GLS -24%. Normal right ventricular cavity size and normal systolic function. No significant valvular abnormalities. PASP est 45 mmHg. Upper normal LA size. Normal IVC, visualized portion of aorta. Bubble study negative for shunt. Findings Mitral Valve The mitral valve is normal. There is no evidence of mitral stenosis. There is no significant mitral regurgitation. Aortic Valve The aortic valve is trileaflet with normal leaflet excursion. There is no evidence of aortic valve stenosis. There is no significant aortic valve insufficiency. Tricuspid Valve The tricuspid valve is normal. There is no evidence of tricuspid stenosis. There is no significant tricuspid regurgitation. PASP est 45 mmHg. Pulmonic Valve The pulmonic valve structure appears normal. There is no evidence of pulmonic stenosis. There is no significant pulmonic valve regurgitation. Left Atrium Upper normal size Left Ventricle Normal LV size, thickness, systolic function. LVEF est 65%. Grade 1 diastolic dysfunction. GLS -24%. Right Atrium The right atrium size is normal. Right Ventricle Normal right ventricular cavity size and normal systolic function. Pericardial Effusion No evidence of pericardial effusion. Miscellaneous Aortic root and proximal ascending aorta are normal in size. Atrial septum appears intact. IVC is normal in size and respiratory response. Aortic arch appears normal. Bubble study negative for shunt. Valves Mitral Valve Area (PHT): 3.49 cm^2 Area (continuity): 1.82 cm^2 Peak E-Wave: 0.90 m/s Mean Velocity: 0.62 m/s Peak A-Wave: 1.03 m/s Mean Gradient: 2 mmHg Peak Gradient: 3.25 mmHg Deceleration Time: 216 msec P1/2t: 63 msec Tissue Doppler E' Velocity: 0.08 m/s E/E':10.6 E/A Ratio: 0.88 E/Lat E': 10.6 E/Med E':10.5 Aortic Valve Area (continuity): 2.39 cm^2 Mean Velocity: 0.85 m/s Area (VTI):2.38 cm^2 Mean Gradient: 3 mmHg Peak Velocity: 1.3 m/s AV VTI: 26.3 cm Peak Gradient: 6.76 mmHg Tricuspid Valve Peak E-Wave: 0.51 m/s Peak Gradient: 1.06 mmHg TR Velocity: 3.28 m/s TR Gradient: 43.03 mmHg Pulmonic Valve Peak Velocity: 1.02 m/s Mean Velocity: 0.74 m/s Peak Gradient: 4.16 mmHg Mean Gradient: 3 mmHg LVOT Peak Velocity: 1.09 m/s Mean Velocity: 0.69 m/s Peak Gradient: 5 mmHg Mean Gradient: 2 mmHg LVOT Diameter: 1.9 cm LVOT VTI: 22.1 cm Stroke Volume: 63 ml Stroke Volume Index: 36.63 ml/m^2 Structures Left Ventricle Diastolic Dimension: 4.15 cm Systolic Dimension: 2.65 cm Septum Diastolic: 0.76 cm Septum Systolic: 1.22 cm PW Diastolic: 1.05 cm PW Systolic: 1.08 cm Diastolic Length: 25.5 cm Systolic Length: 9.49 cm EF Calculated: 70.75% CI: 2.22 l/min*m^2 CO: 3.82 l/min RWT: 0.51 LV EDV: 71.1 ml FS: 36.14 % LV EDV Index: 41 m^2 LV Length: 7.49 cm LV ESV: 20.8 ml LVOT Diameter: 1.9 cm LV ESV Index: 12 m^2 Global Longitudinal Strain:-24.3 Right Ventricle RVOT (PLAX) diameter:3.34 cm Tissue Doppler RV S': 12.8 TAPSE: 2.35 cm Left Atrium LA Systolic Pressure: 15.28 mmHg LA Area: 17.3 cm^2 LA Volume: 40.2 ml LA Index: 23ml/m^2 Right Atrium RA Area: 14.4 cm^2 Great Vessels Aorta Ascending Aorta: 3 cm Aorta Root:2.2 cm Ascending Aorta Index:1.74 cm/m^2 Contractility Score LV regional wall motion: (0-Not visualized 1-Normal 1'-Hyperkinesis 2-Hypokinesis 3-Akinesis 4-Dyskinesis 5-Aneurysm) Demographics Age 53 Gender Female Race Height 61 in. Weight 161 lbs. BMI (BSA) 30.42 kg/m^2 (1.72 m^2) Anesthesiology Technologist Rigoberto Weeks Interpreting Constanza Referring Physician Benji Physician Jose R Giovanna Pearson MD IMG ECHO ORDERABLES Edit ed Result - Final documented in this encounter Visit Diagnoses Diagnosis Mass overlapping multiple quadrants of right breast Lung nodule Solitary pulmonary nodule documented in this encounter Administered Medications Inactive Administered Medications - up to 3 most recent administrations Medication Order MAR Action Action Date Dose Rate Site sulfur hexafluoride microsphere (LUMASON) 25 mg in 0.9% sodium chloride (diluent for Lumason) 5 mL total volume syringe 1-10 mL, Intravenous, ONCE, 1 dose, On Fri09/16/23 at 1730 Given 09/16/2023 5:30 PM CDT 5 mL documented in this encounter Additional Health Concerns Assessment Noted Time PHQ-9 Depression Total Score: 0 04/01/19 20 9:00 AM TELEPHONE DIRECTORY DISTRIBUTOR DRIVER documented as of this encounter Care Teams General Road Production Manager Relationship Specialty Start Date End Date Iveth Guzman MD [address] [place] [address] PCP - General Family Medicine 05/02/23 Laurence Luque MD #[address] [address] Consulting Physician General Surgery 02/01/15 Clemencia Bennett MD [address] [place] [address] Family Medicine 01/30/18 Sony Mcpherson MD #[address] [phone] Consulting Physician General Surgery 09/08/23 documented as of this encounter
--- OUTSIDE RECORDS SUMMARY | 2024-03-15 01:49 | XMS_ITS | Encounter Summary ---
Author Organization [facility] [email or web address]) [facility] Care Team Providers Care Orchard Manager Name Role Phone Laurence Luque MD Unavailable [phone] Clemencia Bennett MD Unavailable [phone] Iveth Guzman MD Primary Care Provider [phone] Encounter Details Date Type Department Care Team (Latest Contact Info) Description 09/01/2023 Travel Social History Tobacco Use Types Packs/Day [...] Info) Description 03/23/2024 1:00 PM DIRECTOR OF INDUSTRIAL RELATIONS Appointment [facility] Services 1 [place] [address] Jose R Pearson MD [address] [place] [address] Discharge Disposition: Discharged to home or Selfcare 03/23/2024 2:30 PM DIRECTOR OF INDUSTRIAL RELATIONS Appointment [facility] [address] 1 [facility] [place] [address] Jose R Pearson MD 0 [place] [address] Discharge Disposition: Discharged to home or Selfcare 03/30/2024 10:00 AM DIRECTOR OF INDUSTRIAL RELATIONS Office Visit [facility] Oncology Services [address] [place] [address] Jose R Pearson MD [address] [place] [address] Discharge Disposition: Discharged to home or Selfcare 03/30/2024 10:30 AM DIRECTOR OF INDUSTRIAL RELATIONS Lab [facility] Oncology Services [address] [place] [address] Discharge Disposition: Discharged to home or Selfcare 03/31/2024 1:00 PM DIRECTOR OF INDUSTRIAL RELATIONS Clinical Support [facility] Oncology Services [address] [place] [address] Jose R Pearson MD [address] [place] [address] Discharge Disposition: Discharged to home or Selfcare 04/28/2024 1:30 PM DIRECTOR OF INDUSTRIAL RELATIONS Clinical Support [facility] Oncology Services [address] [place] [address] Discharge Disposition: Discharged to home or Selfcare [...] 0 04/01/19 20 9:00 AM DIRECTOR OF INDUSTRIAL RELATIONS documented as of this encounter Care Teams Orchard Manager Relationship Specialty Start Date End Date Iveth Guzman MD [address] [place] [address] PCP - General Family Medicine 05/02/23 Laurence Luque MD #[address] [address] Consulting Physician General Surgery 02/01/15 Clemencia Bennett MD [address] [place] [address] Family Medicine 01/30/18 documented as of this encounter
--- OUTSIDE RECORDS SUMMARY | 2024-03-15 01:50 | XMS_ITS | Encounter Summary ---
Author Organization [facility] Address [address] [place] [address] Phone Care Team Providers Care Marketing Services Rep Name Role Phone Laurence Luque MD Unavailable + [phone] Ronit Parish MD Primary Care Provider + [phone] Clemencia Bennett MD Unavailable [phone] Reason for Visit * Reason Onset Date Comments Appointment 11/21/2021 Encounter Details Date Type Department Care Team (Late st Contact Info) Description 11/21/2021 Telephone [facility] - Primary Care - [place] [address] [place] [address] Ronit Parish MD [address] [place] [address] Appointment Social History Tobacco Use Types Packs/Day [...] encounter Miscellaneous Notes * Telephone Encounter - Jen Chaves CMA - 11/21/2021 1:39 PM CDT LM stating appt on 12/21/21 got switched to that will be off that day documented in this encounter Plan of Treatment Upcoming Encounters Date Type Department Care Team (Late st Contact Info) Description 03/23/2024 1:00 PM ORE ROASTER Appointment [facility] Cardiology Services 1 [place] [address] Jose R Pearson MD 0 [place] [address] Discharge Disposition: Discharged to home or Selfcare 03/23/2024 2:30 PM ORE ROASTER Appointment [facility] [address] [facility] [place] [address] Jose R Pearson MD 0 [place] [address] Discharge Disposition: Discharged to home or Selfcare 03/30/2024 10:00 AM ORE ROASTER Office Visit [facility] Oncology Services [address] [place] [address] Jose R Pearson MD 0 [place] [address] Discharge Disposition: Discharged to home or Selfcare 03/30/2024 10:30 AM ORE ROASTER Lab [facility] Oncology Services [address] [place] [address] Discharge Disposition: Discharged to home or Selfcare 03/31/2024 1:00 PM ORE ROASTER Clinical Support [facility] Oncology Services [address] [place] [address] Jose R Pearson MD 0 [place] [address] Discharge Disposition: Discharged to home or Selfcare 04/28/2024 1:30 PM ORE ROASTER Clinical Support [facility] Oncology Services [address] [place] [address] Discharge Disposition: Discharged to home or Selfcare documented as of this encounter Visit Diagnoses Not on filedocumented in this encounter Additional Health Concerns Assessment Noted Time PHQ-9 Depression Total Score: 0 04/01/19 20 9:00 AM ORE ROASTER documented as of this encounter Care Teams Marketing Services Rep Relationship Specialty Start Date End Date Ronit Parish MD #[address] [phone] PCP - General Family Medicine 03/01/15 04/15/22 Laurence Luque MD #[address] [phone] Consulting Physician General Surgery 02/01/15 Clemencia Bennett MD [address] [place] [address] Family Medicine 01/30/18 documented as of this encounter
--- OUTSIDE RECORDS SUMMARY | 2024-03-15 01:50 | XMS_ITS | Encounter Summary ---
Author Organization [facility] [employer] Care Team Providers Care Power Plant Operator Name Role Phone Laurence Luque MD Unavailable + [phone] Clemencia Bennett MD Unavailable [phone] Chica Saldana MD Primary Care Provider + [phone] Encounter Details Date Type Department Care Team (Latest Contact Info) Description 10/14/2022 Travel Social History Tobacco Use Types Packs/Day [...] on file Sexual Orientation Not on file COVID-19 Exposure Response Date Recorded In the last 10 days, have yo u been in contact with someone who was confirmed or suspected to have Coronavirus/COVID-19? No / Unsure 10/14/2022 3:43 PM CDT documented as of this encounter Plan of Treatment Upcoming Encounters Date Type Department Care Team (Late st Contact Info) Description 03/23/2024 1:00 PM PROCESS CONTROL TECHNICIAN Appointment [facility] Cardiology Services 1 [place] [address] Jose R Pearson MD [address] [place] [address] Discharge Disposition: Discharged to home or Selfcare 03/23/2024 2:30 PM PROCESS CONTROL TECHNICIAN Appointment [facility] [address] [place] [address] Jose R Pearson MD [address] [place] [address] Discharge Disposition: Discharged to home or Selfcare 03/30/2024 10:00 AM PROCESS CONTROL TECHNICIAN Office Visit [facility] Oncology Services 0 [place] [phone] Jose R Pearson MD [address] [place] [address] Discharge Disposition: Discharged to home or Selfcare 03/30/2024 10:30 AM PROCESS CONTROL TECHNICIAN Lab [facility] Oncology Services [address] [place] [phone] Discharge Disposition: Discharged to home or Selfcare 03/31/2024 1:00 PM PROCESS CONTROL TECHNICIAN Clinical Support [facility] Oncology Services [address] [place] [address] Jose R Pearson MD [address] [place] [address] Discharge Disposition: Discharged to home or Selfcare 04/28/2024 1:30 PM PROCESS CONTROL TECHNICIAN Clinical Support [facility] Oncology Services [address] [place] [address] Discharge Disposition: Discharged to home or Selfcare documented as of this encounter Goals Goal Patient Goal Type Associated Problems Recent Progress Patient-Stated? Author Exercise 3x per week (30 min per time) Exercise Chica Louis MD documented as of this encounter Visit Diagnoses Not on filedocumented in this encounter Additional Health Concerns Assessment Noted Time PHQ-9 Depression Total Score: 0 04/01/19 20 9:00 AM PROCESS CONTROL TECHNICIAN documented as of this encounter Care Teams Power Plant Operator Relationship Specialty Start Date End Date Chica Saldana MD [address] [place] [address] PCP - General Family Medicine 04/16/22 05/01/23 Laurence Luque MD #[address] [phone] Consulting Physician General Surgery 02/01/15 Clemencia Bennett MD [address] [place] [address] Family Medicine 01/30/18 documented as of this encounter
--- OUTSIDE RECORDS SUMMARY | 2024-03-15 01:50 | XMS_ITS | Encounter Summary ---
Author Organization [facility] Address [address] [place] [address] Phone Care Team Providers Care Converter Supervisor Name Role Phone Laurecne Luque MD Unavailable [phone] Clemencia Bennett MD Unavailable [phone] Iveth Guzman MD Primary Care Provider + [phone] Encounter Details Date Type Department Care Team (Late st Contact Info) Description 05/02/2023 2:00 PM BUTTON BROACHER Lab [facility] - Primary Care - [address] [address] Lab, [facility] Mass overlapping multiple quadrants of right breast Discharge Disposition: Discharged to home or Selfcare [...] as of this encounter Progress Notes * Alexia Huerta - 05/02/2023 2:00 PM CST Angie presents for lab draw per order of Iveth Guzman MD dated 05/02/23. Specimen collectedfrom right antecubital without incident. sah ON BROACHER * Iveth Guzman MD - 05/02/2023 2:00 PM CST Blood sugar, kidney function, and liver tests are normal.Blood count is normal. ON BROACHER documented in this encounter Plan of Treatment Upcoming Encounters Date Type Department Care Team (Late st Contact Info) Description 03/23/2024 1:00 PM BUTTON BROACHER Appointment [facility] Cardiology Services 1 [place] [address] Jose R Pearson MD [address] [place] [address] Discharge Disposition: Discharged to home or Selfcare 03/23/2024 2:30 PM BUTTON BROACHER Appointment [facility] CT [address] [place] [address] Jose R Pearson MD [address] [place] [address] Discharge Disposition: Discharged to home or Selfcare 03/30/2024 10:00 AM BUTTON BROACHER [facility] [address] [place] [address] Jose R Pearson MD [address] [place] [address] Discharge Disposition: Discharged to home or Selfcare 03/30/2024 10:30 AM BUTTON BROACHER Lab [facility] [address] [place] [address] Discharge Disposition: Discharged to home or Selfcare 03/31/2024 1:00 PM BUTTON BROACHER Clinical Support [facility] Oncology Services 0 [place] [address] Jose R Pearson MD [address] [place] [address] Discharge Disposition: Discharged to home or Selfcare 04/28/2024 1:30 PM BUTTON BROACHER [facility] [address] [place] [address] Discharge Disposition: Discharged to home or Selfcare documented as of this encounter Goals Goal Patient Goal Type Associated Problems Recent Progress Patient-Stated? Author Exercise 3x per week (30 min per time) Exercise No Chica Saldana MD documented as of this encounter Procedures Procedure Name Priority Date/Time Associated Diagnosis Comments CBC WITH AUTO DIFFERENTIAL Routine 05/02/2023 1:52 PM BUTTON BROACHER Mass overlapping multiple quadrants of right breast CMP (COMPREHENSIVE METABOLIC PANEL) Routine 05/02/2023 1:52 PM BUTTON BROACHER Mass overlapping multiple quadrants of right breast COMPLETE BLOOD COUNT (CBC) WITH DIFF Routine 05/02/2023 1:52 PM BUTTON BROACHER Mass overlapping multiple quadrants of right breast documented in this encounter Results * CBC WITH AUTO DIFFERENTIAL (05/02/2023 1:52 PM BUTTON BROACHER) WBC 8.88 4.00 - 12.00 10(3)/mcL 05/02/2023 3:09 PM BUTTON BROACHER [facility] RBC 4.71 3.80 - 5.30 10(6)/mcL 05/02/2023 3:09 PM BUTTON BROACHER [facility] HEMOGLOBIN (HGB) 14.1 12.0 - 15.8 g/dL 05/02/2023 3:09 PM BUTTON BROACHER [facility] HEMATOCRIT (HCT) 42.3 36.0 - 47.0 % 05/02/2023 3:09 PM [facility] MCV 89.8 82.0 - 96.0 fL 05/02/2023 3:09 PM [facility] MCH 29.9 26.0 - 34.0 pg 05/02/2023 3:09 PM [facility] MCHC 33.3 31.0 - 36.0 g/dL 05/02/2023 3:09 PM [facility] PLATELET COUNT 289 140 - 440 10(3)/[facility] 05/02/2023 3:09 PM [facility] RDW 12.1 11.8 - 15.5 % 05/02/2023 3:09 PM [facility] MPV 9.7 9.7 - 12.4 fL 05/02/2023 3:09 PM [facility] NEUTROPHILS 55.9 47.0 - 73.0 % 05/02/2023 3:09 PM [facility] LYMPHOCYTES 34.2 18.0 - 42.0 % 05/02/2023 3:09 PM [facility] MONOCYTES 6.9 4.0 - 12.0 % 05/02/2023 3:09 PM [facility] EOSINOPHILS 2.4 0.0 - 5.0 % 05/02/2023 3:09 PM [facility] BASOPHILS 0.6 0.0 - 1.0 % 05/02/2023 3:09 PM [facility] ABSOLUTE NEUTROPHILS 4.97 1.60 - 7.70 10(3)/mcL 05/02/2023 3:09 PM [facility] ABSOLUTE LYMPHOCYTES 3.04 1.30 - 3.20 10(3)/mcL 05/02/2023 3:09 PM [facility] ABSOLUTE MONOCYTES 0.61 0.20 - 1.00 10(3)/mcL 05/02/2023 3:09 PM [facility] ABSOLUTE EOSINOPHIL 0.21 0.00 - 0.40 10(3)/[facility] 05/02/2023 3:09 PM [facility] ABSOLUTE BASOPHILS 0.05 0.00 - 0.10 10(3)/mcL 05/02/2023 3:09 PM [facility] NRBC PER 100 WBC 0 05/02/19 3:09 PM [facility] Blood Venipuncture / Unknown 05/02/2023 1:52 PM BUTTON BROACHER 05/02/2023 1:52 PM BUTTON BROACHER us Iveth Guzman MD HEMATOLOGY ORDERABLES Lanny l Result [facility] [address] [place] [address] * (ABNORMAL) CMP (COMPREHENSIVE METABOLIC PANEL) (05/02/2023 1:52 PM BUTTON BROACHER) SODIUM 140 136 - 145 mmol/L 05/02/2023 3:56 PM [facility] POTASSIUM 3.7 3.5 - 5.1 mmol/L 05/02/2023 3:56 PM [facility] CHLORIDE 106 98 - 107 mmol/L 05/02/2023 3:56 PM [facility] CO2, VENOUS 25 22 - 30 mmol/L 05/02/2023 3:56 PM [facility] ANION GAP 12.7 <18.0 mmol/L 05/02/2023 3:56 PM [facility] GLUCOSE 101(H) 70 - 99 mg/dL 05/02/2023 3:56 PM [facility] BUN 11 10 - 20 mg/dL 05/02/2023 3:56 PM [facility] CREATININE, BLOOD 0.80 0.60 - 1.00 mg/dL 05/02/2023 3:56 PM [facility] BUN/CREATININE RATIO 14 12 - 20 ratio 05/02/2023 3:56 PM [facility] TOTAL PROTEIN 7.4 6.3 - 8.2 g/dL 05/02/2023 3:56 PM BUTTON BROACHER [facility] ALBUMIN 4.4 3.5 - 5.0 g/dL 05/02/2023 3:56 PM BUTTON BROACHER [facility] A/G RATIO 1.5 1.0 - 2.2 05/02/2023 3:56 PM BUTTON BROACHER [facility] CALCIUM 9.6 8.7 - 10.5 mg/dL 05/02/2023 3:56 PM [facility] T BILI 0.6 0.2 - 1.2 mg/dL 05/02/2023 3:56 PM BUTTON BROACHER [facility] SGOT (AST) 28 5 - 34 U/L 05/02/2023 3:56 PM [facility] SGPT (ALT) 30 0 - 55 U/L 05/02/2023 3:56 PM [facility] ALKALINE PHOSPHATASE 92 40 - 150 U/L 05/02/2023 3:56 PM [facility] IS THE PATIENT REQUIRED TO BE FASTING? No 05/02/2023 3:56 PM BUTTON BROACHER [facility] GFR, ESTIMATED >60 >=60 05/02/2023 3:56 PM [facility] Comment: Creatinine Clearance is the preferred criteria for selecting drug dose adjustments in renally impaired patients. ??The GFR is provided as additional pertinent clinical information. GFR is reported in mL/min/1.73 sq m. Calculation based on the Chronic Kidney Disease Epidemiology Collaboration (CKD- EPI) equation refit without adjustment for race. GFR, EST. >60 >=60 024 3:56 PM BUTTON BROACHER [facility] GFR, EST. NONAFRICAN >60 >=60 05/02/2023 3:56 PM [facility] Blood Venipuncture / Unknown 05/02/2023 1:52 PM BUTTON BROACHER 05/02/2023 1:52 PM BUTTON BROACHER us Iveth Guzman MD CHEMISTRY ORDERABLES Final Result [facility] [address] [place] [address] documented in this encounter Visit Diagnoses Diagnosis Mass overlapping multiple quadrants of right breast documented in this encounter Additional Health Concerns Assessment Noted Time PHQ-9 Depression Total Score: 0 04/01/19 20 9:00 AM BUTTON BROACHER documented as of this encounter Care Teams Converter Supervisor Relationship Specialty Start Date End Date Ievth Guzman MD [address] [place] [address] PCP - General Family Medicine 05/02/23 Laurence Luque MD #[address] [address] Consulting Physician General Surgery 02/01/15 Clemencia Bennett MD [address] [place] [address] Family Medicine 01/30/18 documented as of this encounter
--- OUTSIDE RECORDS SUMMARY | 2024-03-15 01:50 | XMS_ITS | Encounter Summary ---
Author Organization [facility] Address [address] [place] [address] Phone Care Team Providers Care Field Operations Farm Manager Name Role Phone Laurence Luque MD Unavailable Clemencia Bennett MD Unavailable Iveth Guzman MD Primary Care Provider [phone] Reason for Visit * Reason Onset Date Comments Results 08/20/2023 US Guided lymph node biopsy Encounter Details Date Type Department Care Team (Late st Contact Info) Description 08/20/2023 Telephone [facility] - Primary Care - [place] [address] [place] [address] Iveth Guzman MD [address] [place] [address] Results (US Guided lymph node biopsy /) Social History Tobacco Use Types Packs/Day Years [...] Telephone Encounter - Rebeca Francis RN - 08/20/2023 2:05 PM CDT Note seen pt pt via Mychart. * Telephone Encounter - Rebeca Francis RN - 08/20/2023 1:42 PM CDT ----- Message from Iveth Guzman MD sent at 08/20/2023 1:11 PM CDT ----- Operative note. * Telephone Encounter - Rebeca Francis RN - 08/20/2023 1:41 PM CDT ----- Message from Iveth Guzman MD sent at 08/20/2023 1:10 PM CDT ----- Operation note for obtaining the biopsy of the right mastectomy site. (Message to patient not needed.) * Telephone Encounter - Rebeca Francis RN - 08/20/2023 1:41 PM CDT ----- Message from Iveth Guzman MD sent at 08/20/2023 1:12 PM CDT ----- Operative note (message to patient deferred awaiting path report.) documented in this encounter Plan of Treatment Upcoming Encounters Date Type Department Care Team (Late st Contact Info) Description 03/23/2024 1:00 PM ACO COORDINATOR Appointment [facility] Cardiology Services 1 [place] [address] Jose R Pearson MD [address] [place] [address] Discharge Disposition: Discharged to home or Selfcare 03/23/2024 2:30 PM ACO COORDINATOR Appointment [facility] [address] [place] [address] Jose R Pearson MD [address] [place] [address] Discharge Disposition: Discharged to home or Selfcare 03/30/2024 10:00 AM ACO COORDINATOR Office Visit [facility] Oncology Services [address] [place] [address] Jose R Pearson MD [address] [place] [address] Discharge Disposition: Discharged to home or Selfcare 03/30/2024 10:30 AM ACO COORDINATOR Lab [facility] Oncology Services [address] [place] [address] Discharge Disposition: Discharged to home or Selfcare 03/31/2024 1:00 PM ACO COORDINATOR Clinical Support [facility] Oncology Services [address] [place] [address] Jose R Pearson MD [address] [place] [address] Discharge Disposition: Discharged to home or Selfcare 04/28/2024 1:30 PM ACO COORDINATOR Clinical Support [facility] Oncology Services [address] [place] [phone] Discharge Disposition: Discharged to home or Selfcare documented as of this encounter Goals Goal Patient Goal Type Associated Problems Recent Progress Patient-Stated? Author Exercise 3x per week (30 min per time) Exercise No Saldana, Chica D, MD documented as of this encounter Visit Diagnoses Not on filedocumented in this encounter Additional Health Concerns Assessment Noted Time PHQ-9 Depression Total Score: 0 04/01/19 20 9:00 AM ACO COORDINATOR documented as of this encounter Care Teams Field Operations Farm Manager Relationship Specialty Start Date End Date Iveth Guzman MD [address] [place] [address] PCP - General Family Medicine 05/02/23 Laurence Luque MD #[address] [phone] Consulting Physician General Surgery 02/01/15 Clemencia Bennett MD [address] [place] [address] Family Medicine 01/30/18 documented as of this encounter
--- OUTSIDE RECORDS SUMMARY | 2024-03-15 01:50 | XMS_ITS | Encounter Summary ---
Author Organization [facility] Address [address] [place] [address] Phone Care Team Providers Care Systems Programmer Analyst Name Role Phone Laurence Luque MD Unavailable + [phone] Ronit Parish MD Primary Care Provider + [phone] Clemencia Bennett MD Unavailable [phone] Reason for Visit * Reason Comments Medication Refill Encounter Details Date Type Department Care Team (Late st Contact Info) Description 06/11/2021 Refill [facility] - Primary Care - [place] [address] [place] [address] Ronit Parish MD [address] [place] [address] Medication Refill Social History Tobacco [...] suspected to have Coronavirus/COVID-19? No / Unsure 05/30/2021 11:02 AM CDT documented as of this encounter Miscellaneous Notes * Telephone Encounter - Naya Jenkins RN - 06/11/2021 1:15 PM CDT Medication approved and signed per standing order protocol. documented in this encounter Plan of Treatment Upcoming Encounters Date Type Department Care Team (Late st Contact Info) Description 03/23/2024 1:00 PM SHUTTLE VAN DRIVER Appointment [facility] Cardiology Services 1 [place] [address] Jose R Pearson MD [address] [place] [address] Discharge Disposition: Discharged to home or Selfcare 03/23/2024 2:30 PM SHUTTLE VAN DRIVER Appointment [facility] [address] [place] [address] Jose R Pearson MD [address] [place] [address] Discharge Disposition: Discharged to home or Selfcare 03/30/2024 10:00 AM SHUTTLE VAN DRIVER Office Visit [facility] Oncology Services [address] [place] [address] Jose R Pearson MD [address] [place] [address] Discharge Disposition: Discharged to home or Selfcare 03/30/2024 10:30 AM SHUTTLE VAN DRIVER [facility] [address] [place] [address] Discharge Disposition: Discharged to home or Selfcare 03/31/2024 1:00 PM SHUTTLE VAN DRIVER Clinical Support [facility] Oncology Services [address] [place] [address] Jose R Pearson MD 0 [place] [address] Discharge Disposition: Discharged to home or Selfcare 04/28/2024 1:30 PM SHUTTLE VAN DRIVER Clinical Support [facility] Oncology Services [address] [place] [address] Discharge Disposition: Discharged to home or Selfcare documented as of this encounter Visit Diagnoses Diagnosis Essential hypertension Unspecified essential hypertension documented in this encounter Additional Health Concerns Assessment Noted Time PHQ-9 Depression Total Score: 0 04/01/19 9:00 AM SHUTTLE VAN DRIVER documented as of this encounter Care Teams Systems Programmer Analyst Relationship Specialty Start Date End Date Ronit Parish MD #[address] [address] PCP - General Family Medicine 03/01/15 04/15/22 Laurence Luque MD #[address] [address] Consulting Physician General Surgery 02/01/15 Clemencia Bennett MD [address] [place] [address] Family Medicine 01/30/18 documented as of this encounter
--- OUTSIDE RECORDS SUMMARY | 2024-03-15 01:50 | XMS_ITS | Encounter Summary ---
Author Organization [facility] Address [address] [place] [address] Phone Care Team Providers Care Process Worker Name Role Phone Laurence Luque MD Unavailable [phone] Clemencia Bennett MD Unavailable [phone] Iveth Guzman MD Primary Care Provider [phone] Reason for Referral * Radiology Services (Routine) - Closed Specialty Diagnoses / Procedures Referred By Martin laguna Referred To Contact Radiology Diagnoses History of mastectomy, bilateral Procedures [facility] US BREAST LIMITED RT Iveth Guzman MD [address] [place] [address] Phone: tel: fax: Referral ID Status Reason Start Date Expiration Date Visits Re quested Visits Authorized [id number] Closed 08/06/2023 1 1 Encounter Details Date Type Department Care Team (Latest Contact Info) Description 08/06/2023 Transcribe Orders [facility] Mammography [address] [place] [id number] Iveth Guzman MD [address] [place] [address] History of mastectomy, bilateral (Primary Dx) Social History Tobacco Use Types Packs/Day Years [...] st Contact Info) Description 03/23/2024 1:00 PM 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 Oncology Services [address] [place] [address] Jose R Pearson MD [address] [place] [address] Discharge Disposition: Discharged to home or Selfcare 03/30/2024 10:30 AM BASE WAD OPERATOR ADJUSTER [facility] [address] [place] [address] Discharge Disposition: Discharged to home or Selfcare 03/31/2024 1:00 PM BASE WAD OPERATOR ADJUSTER Clinical Support [facility] Oncology Services [address] [place] [address] Jose R Pearson MD [address] [place] [address] Discharge Disposition: Discharged to home or Selfcare 04/28/2024 1:30 PM BASE WAD OPERATOR ADJUSTER Clinical Support [facility] Oncology Services [address] [place] [address] Discharge Disposition: Discharged to home or Selfcare documented as of this encounter Goals Goal Patient Goal Type Associated Problems Recent Progress Patient-Stated? Author Exercise 3x per week (30 min per time) Exercise No Chica Saldana MD documented as of this encounter Results * [facility] US BREAST LIMITED RT (08/18/2023 3:44 PM CDT) Anatomical Region Laterality Modality breast Right Ultrasound 08/18/2023 3:08 PM CDT Narrative 08/19/2023 10:21 AM CDT - [facility] US BREAST LIMITED RT LIMITED ULTRASOUND OF RIGHT BREAST: 08/18/2023 CLINICAL: Several palpable lumps, erythema and scabbing to skin noted to right mascetomy and chest since April 2023. ?? COMPARISONS: No prior exams were available for comparison. ?? Color flow ultrasound of the right breast was performed on the areas of interest. ??Huerta scale images of the real-time examination were reviewed. ?? FINDINGS: Targeted right breast ultrasound was performed in the regions of interest as indicated by the patient. ??Center of the postmastectomy right chest is indicated by cross section of scar. ?? In the upper outer quadrant approximately 8 cm from the center there is a hypoechoic nodular focus measuring 1.2 cm. ??This correlates as the 11 o'clock position. ??This nodule has a solid appearance and is suspicious. ??Additionally, at the 11 o'clock position 7 cm from the center there is an irregular shaped hypoechoic nodular ??mass measuring 1.0 x 0.6 by 1.2 cm. ??Additionally, in the upper outer quadrant 3 cm from the center there is an ill-defined hypoechoic mass perpendicular with the skin measuring 11 mm x 8 mm x 8 mm. ?? There is superficial erythema and ulceration of the skin with scabbing near this lesion. ??Medial to this lesion is more ill-defined hypoechoic shadowing tissue. ??There is lobulated hypoechoic mass identified at the 3 o'clock position 2 cm from the center measuring 2.4 x 0.8 x 1.7 cm. ??There is an irregular ill-defined mass along the superficial border of the larger mass with evidence of color flow extending to the level of the skin. ?? Within the upper inner quadrant of the breast approximately 7 cm from the center scar there is an irregular ill-defined hypoechoic mass measuring 8 mm x 8 mm x 8 mm. ??This is perpendicular with the skin and has a highly suspicious appearance. ??This is labeled 2. Asimilar appearing lesion slightly deeper is noted in the upper inner quadrant 7 cm from the center scar measuring 9 mm x 8 mm x 7 mm. Attention to the right axilla demonstrates at least 2 abnormal appearing right axillary lymph nodes. ??The more superficial lymph node is irregular in shape and heterogeneous in echotexture measuring approximately 1.5 x 1.5 x 2.0 cm. ??This is highly suspicious for malignancy. IMPRESSION: HIGHLY SUGGESTIVE OF MALIGNANCY Thickened erythematous skin with ulceration and scabbing concerning for ulcerated mass. ??There are multiple nodules within the tissues of the superior postsurgical chest suspicious for malignancy. Multiple right axillary lymph nodes suspicious for malignancy. ?? Recommend ultrasound-guided biopsy of the more superficial mass in the upper inner quadrant 7 cm from the center scar labeled #2. Recommend ultrasound-guided right axillary lymph node biopsy of the more superficial appearing abnormal lymph node ??labeled #1. Oncologic consultation and skin punch biopsy may be considered if clinically appropriate. The nurse navigator was aware of results and recommendations at the time of the study. The results and recommendations were discussed with the patient. Electronically signed by: Federica Myrick M.D. ?? ab/:08/18/2023 15:54:27 ?? Needle Grinder(s): Anel ??VICENTE Mayer, [facility] letter sent: Abnormal Exam ?? Reading location: [facility] Ultrasound BI-RADS: 5 Highly suggestive of malignancy Procedure Note Bahu, Federica Meagan, MD - 08/19/2023 - [facility] US BREAST LIMITED RT LIMITED ULTRASOUND OF RIGHT BREAST: 08/18/2023 CLINICAL: Several palpable lumps, erythema and scabbing to skin noted to right mascetomy and chest since April 2023. COMPARISONS: No prior exams were available for comparison. Color flow ultrasound of the right breast was performed on the areas of interest. Huerta scale images of the real-time examination were reviewed. FINDINGS: Targeted right breast ultrasound was performed in the regions of interest as indicated by the patient. Center of the postmastectomy right chest is indicated by cross section of scar. In the upper outer quadrant approximately 8 cm from the center there is a hypoechoic nodular focus measuring 1.2 cm. This correlates as the 11 o'clock position. This nodule has a solid appearance and is suspicious. Additionally, at the 11 o'clock position 7 cm from the center there is an irregular shaped hypoechoic nodular mass measuring 1.0 x 0.6 by 1.2 cm. Additionally, in the upper outer quadrant 3 cm from the center there is an ill-defined hypoechoic mass perpendicular with the skin measuring 11 mm x 8 mm x 8 mm. There is superficial erythema and ulceration of the skin with scabbing near this lesion. Medial to this lesion is more ill-defined hypoechoic shadowing tissue. There is lobulated hypoechoic mass identified at the 3 o'clock position 2 cm from the center measuring 2.4 x 0.8 x 1.7 cm. There is an irregular ill-defined mass along the superficial border of the larger mass with evidence of color flow extending to the level of the skin. Within the upper inner quadrant of the breast approximately 7 cm from the center scar there is an irregular ill-defined hypoechoic mass measuring 8 mm x 8 mm x 8 mm. This is perpendicular with the skin and has a highly suspicious appearance. This is labeled 2. Asimilar appearing lesion slightly deeper is noted in the upper inner quadrant 7 cm from the center scar measuring 9 mm x 8 mm x 7 mm. Attention to the right axilla demonstrates at least 2 abnormal appearing right axillary lymph nodes. The more superficial lymph node is irregular in shape and heterogeneous in echotexture measuring approximately 1.5 x 1.5 x 2.0 cm. This is highly suspicious for malignancy. IMPRESSION: HIGHLY SUGGESTIVE OF MALIGNANCY Thickened erythematous [...] biopsy may be considered if clinically appropriate. The nurse navigator was aware of results and recommendations at the time of the study. The results and recommendations were discussed with the patient. Electronically signed by: Federica Myrick M.D. ab/:08/18/2023 15:54:27 Needle Grinder(s): VICENTE Sethi, [facility] letter sent: Abnormal Exam Reading location: [facility] Ultrasound BI-RADS: 5 Highly suggestive of malignancy us Iveth Guzman MD IMG MAMMO ORDERABLES Final Result documented in this encounter Visit Diagnoses Diagnosis History of mastectomy, bilateral- Primary History of mastectomy, bilateral documented in this encounter Additional Health Concerns Assessment Noted Time PHQ-9 Depression Total Score: 0 04/01/19 20 9:00 AM BASE WAD OPERATOR ADJUSTER documented as of this encounter Care Teams Process Worker Relationship Specialty Start Date End Date Iveth Guzman MD [address] [place] [address] PCP - General Family Medicine 05/02/23 Laurence Luque MD [address] [address] Consulting Physician General Surgery 02/01/15 Clemencia Bennett MD [address] [place] [address] Family Medicine 01/30/18 documented as of this encounter
--- OUTSIDE RECORDS SUMMARY | 2024-03-15 01:50 | XMS_ITS | Encounter Summary ---
Author Organization [facility] Address [address] [place] [address] Phone Care Team Providers Care It Systems Administrator Name Role Phone Laurence Luque MD Unavailable [phone] Clemencia Bennett MD Unavailable [phone] Iveth Guzman MD Primary Care Provider [phone] Reason for Visit * Reason Onset Date Comments Results 05/02/2023 Labs Encounter Details Date Type Department Care Team (Late st Contact Info) Description 05/02/2023 Telephone [facility] - Primary Care - [place] [address] [place] [address] Iveth Guzman MD [address] [place] [address] Results (Labs ) Social History Tobacco Use Types Packs/Day [...] Telephone Encounter - Rebeca Francis RN - 05/02/2023 4:15 PM CST Patient notified of results by PCP via [email or web address]. AL SALES MANAGER * Telephone Encounter - Rebeca Francis RN - 05/02/2023 4:14 PM CST ----- Message from Iveth Guzman MD sent at 05/02/2023 3:59 PM GLOBAL SALES MANAGER ----- Blood sugar, kidney function, and liver tests are normal.Blood count is normal. AL SALES MANAGER documented in this encounter Plan of Treatment Upcoming Encounters Date Type Department Care Team (Late st Contact Info) Description 03/23/2024 1:00 PM GLOBAL SALES MANAGER [facility]ment [facility] [address] [place] [address] Jose R Pearson MD [address] [place] [address] Discharge Disposition: Discharged to home or Selfcare 03/23/2024 2:30 PM GLOBAL SALES MANAGER Appointment [facility] [address] [place] [address] Jose R Pearson MD [address] [place] [address] Discharge Disposition: Discharged to home or Selfcare 03/30/2024 10:00 AM GLOBAL SALES MANAGER Office Visit [facility] Oncology Services [address] [place] [phone] Jose R Pearson MD [address] [place] [address] Discharge Disposition: Discharged to home or Selfcare 03/30/2024 10:30 AM GLOBAL SALES MANAGER Lab [facility] Oncology Services [address] [place] [address] Discharge Disposition: Discharged to home or Selfcare 03/31/2024 1:00 PM GLOBAL SALES MANAGER Clinical Support [facility] Oncology Services [address] [place] [phone] Jose R Pearson MD [address] [place] [address] Discharge Disposition: Discharged to home or Selfcare 04/28/2024 1:30 PM GLOBAL SALES MANAGER Clinical Support [facility] Oncology Services [address] [place] [phone] Discharge Disposition: Discharged to home or Selfcare [...] Total Score: 0 04/01/19 20 9:00 AM GLOBAL SALES MANAGER documented as of this encounter Care Teams It Systems Administrator Relationship Specialty Start Date End Date Iveth Guzman MD [address] [place] [address] PCP - General Family Medicine 05/02/23 Laurence Luque MD [address] [phone] Consulting Physician General Surgery 02/01/15 Clemencia Bennett MD [address] [place] [address] Family Medicine 01/30/18 documented as of this encounter
--- OUTSIDE RECORDS SUMMARY | 2024-03-15 01:50 | XMS_ITS | Encounter Summary ---
Author Organization [facility] Address [address] [place] [address] Phone Care Team Providers Care Fruit Peeler Name Role Phone Laurence Luque MD Unavailable + [phone] Clemencia Bennett MD Unavailable [phone] Chica Saldana MD Primary Care Provider + [phone] Reason for Visit * Reason Comments Transition of Care Encounter Details Date Type Department Care Team (Late st Contact Info) Description 04/16/2022 2:15 PM SALES ENABLEMENT MANAGER Office Visit [facility] - Primary Care - Danny [address] [place] [address] Chica Saldana MD [address] [place] [address] Well adult exam (Primary Dx); Essential hypertension Discharge Disposition: Discharged to home or Selfcare Social History Tobacco Use Types Packs/Day Years Used Date Smoking Tobacco: Never Smokeless Tobacco: Never Tobacco Cessation:Counseling Given: No Alcohol Use Standard Drinks/Week Comments Yes 0 [...] suspected to have Coronavirus/COVID-19? No / Unsure 04/16/2022 2:03 PM SALES ENABLEMENT MANAGER documented as of this encounter Last Filed Vital Signs Vital Sign Reading Time Taken Comments Blood Pressure 130/80 04/16/2022 2:14 PM SALES ENABLEMENT MANAGER Pulse 72 04/16/2022 2:14 PM SALES ENABLEMENT MANAGER Temperature 36.3 ??C (97.3 ??F) 04/16/2022 2:14 PM CS T Respiratory Rate 18 04/16/2022 2:14 PM SALES ENABLEMENT MANAGER Oxygen Saturation 99% 04/16/2022 2:14 PM SALES ENABLEMENT MANAGER Inhaled Oxygen Concentration - - Weight 73.8 kg (162 lb 9.6 oz) 04/16/2022 2:14 P M SALES ENABLEMENT MANAGER Height 154.9 cm (5' 1 ) 04/16/2022 2:14 PM SALES ENABLEMENT MANAGER Body Mass Index 30.72 04/16/2022 2:14 PM SALES ENABLEMENT MANAGER documented in this encounter Patient Instructions * Attachments The following attachments cannot be sent through Care Everywhere. * Mindfulness-Based Stress Reduction (Croatian) * Calorie Counting for Weight Loss (Croatian) * Preventive Care 40-64 Years Old Female (Croatian) documented in this encounter Progress Notes * Lizbeth Haley Edmar, ROB - 04/16/2022 2:15 PM CST Angie Reed, 52 y.o., female is here for Transition of Care Medication Refills: Patient reports/denies need for medication refills. Orders Pended: yes Requested Prescriptions Pending Prescriptions Disp Refills ??? metoprolol tartrate (LOPRESSOR) 25 MG Tablet 180 Tablet 0 Sig: Take 1 Tablet by mouth 2 times daily. Home Medications Medication Sig Start Date End Date Taking? Authorizing Provider metoprolol tartrate (LOPRESSOR) 25 MG Tablet Take 1 tablet by mouth twice daily 09/14/21 Yes Ronit Parish MD Multiple Vitamin (MULTI-VITAMIN PO) Take 1 Tab by mouth daily. Yes Provider, MD Ernesto There are no discontinued medications. I have reviewed the home medication list with the patient and have reconciled discrepancies. The list is accurate to the best of my knowledge. Smoking Status: Social History Tobacco Use ??? Smoking status: Never ??? Smokeless tobacco: Never Vaping Use ??? Vaping Use: Never used Substance Use Topics ??? Alcohol use: Yes Alcohol/week: 0.0 oz Comment: rarely ??? Drug use: No Smoking Cessation Counseling Given: no Health Care Maintenance: Health Maintenance Due Topic Date Due ??? Hepatitis B Immunization (1 of 3 - 3-dose series) Never done Orders Pended: yes The following BPA's have been addressed with the patient today: N/A S ENABLEMENT MANAGER * Chica Saldana MD - 04/16/2022 2:15 PM CST HPI: Patient is a 52 y.o. female who presents today for Transition of Care this is a beautiful 52-year-old woman who is from the [facility] presents today with no complaintsof any kind but she does have hypertension and is treated for that otherwise is fairly healthy. Her main concern is to take off approximately 30 or so lb she would like to be 135 Health Maintenance: There are no preventive care reminders to display for this patient. Medications: Current Outpatient Medications Medication Sig Dispense Refill ??? metoprolol tartrate (LOPRESSOR) 25 MG Tablet Take 1 Tablet by mouth 2 times daily. 180 Tablet 0 ??? Multiple Vitamin (MULTI-VITAMIN PO) Take 1 Tab by mouth daily. No current facility-administered medications for this visit. Review of Systems All other systems reviewed and are negative. No complaints at this time Vitals: 04/16/22 1414 BP: 130/80 BP Location: Right Arm BP Position: Sitting BP Cuff Size: Regular Pulse: 72 Resp: 18 Temp: 97.3 ??F (36.3 ??C) TempSrc: Temporal SpO2: 99% Weight: 162 lb 9.6 oz (73.8 kg) Height: 5' 1 (1.549 m) Body mass index is 30.72 kg/m??. Physical Exam Vitals and nursing note reviewed. Constitutional: Appearance: Normal appearance. HENT: Head: Normocephalic and atraumatic. Right Ear: External ear normal. Left Ear: External ear normal. Nose: Nose normal. Eyes: Conjunctiva/sclera: Conjunctivae normal. Cardiovascular: Rate and Rhythm: Normal rate and regular rhythm. Pulmonary: Effort: Pulmonary effort is normal. Breath sounds: Normal breath sounds. Skin: General: Skin is warm and dry. Neurological: Mental Status: She is alert and oriented to person, place, and time. Gait: Gait normal. Deep Tendon Reflexes: Reflexes normal. Psychiatric: Mood and Affect: Mood normal. Behavior: Behavior normal. Past, family, surgical, and social history reviewed and updated in the chart. Assessment/Plan: Diagnoses and all orders for this visit: Well adult exam - COMPLETE BLOOD COUNT (CBC) WITH DIFF; Future - CMP (COMPREHENSIVE METABOLIC PANEL); Future - THYROID SCREEN WITH REFLEX; Future - HEMOGLOBIN A1C W/ ESTIMATED GLUCOSE; Future - LIPID PANEL; Future Essential hypertension - metoprolol tartrate (LOPRESSOR) 25 MG Tablet; Take 1 Tablet by mouth 2 times daily. Patient verbalizes understanding and agrees with plan of care as noted above. New medication discussed with patient and family, including action of medication, potential side effects, interactions, and consequences for not taking it. Patient states understanding of new medication instructions. An After Visit Summary with personalized patient education was printed and given to the patient. Documentation for this visit on 04/16/22 was completed using a template. I have seen and examined the patient. Everything documented was personally performed at this visit with the necessary additions, deletions and changes made as appropriate. S ENABLEMENT MANAGER documented in this encounter Plan of Treatment Upcoming Encounters Date Type Department Care Team (Late st Contact Info) Description 03/23/2024 1:00 PM SALES ENABLEMENT MANAGER Appointment [facility] [address] [place] [address] Jose R Pearson MD [address] [place] [address] Discharge Disposition: Discharged to home or Selfcare 03/23/2024 2:30 PM SALES ENABLEMENT MANAGER [facility]ointment [facility] [address] [place] [address] Jose R Pearson MD [address] [place] [address] Discharge Disposition: Discharged to home or Selfcare 03/30/2024 10:00 AM SALES ENABLEMENT MANAGER Office Visit [facility] [address] [place] [address] Jose R Pearson MD [address] [place] [address] Discharge Disposition: Discharged to home or Selfcare 03/30/2024 10:30 AM SALES ENABLEMENT MANAGER Lab [facility] [address] [place] [phone] Discharge Disposition: Discharged to home or Selfcare 03/31/2024 1:00 PM SALES ENABLEMENT MANAGER Clinical Support [facility] [address] [place] [address] Jose R Pearson MD [address] [place] [address] Discharge Disposition: Discharged to home or Selfcare 04/28/2024 1:30 PM SALES ENABLEMENT MANAGER Clinical Support [facility] [address] [place] [address] Discharge Disposition: Discharged to home or Selfcare documented as of this encounter Goals Goal Patient Goal Type Associated Problems Recent Progress Patient-Stated? Author Exercise 3x per week (30 min per time) Exercise No Chica Saldana MD documented as of this encounter Results * (ABNORMAL) LIPID PANEL (04/16/2022 2:54 PM SALES ENABLEMENT MANAGER) CHOLESTEROL 227(H) <=200 mg/dL 04/17/2022 8:53 AM SALES ENABLEMENT MANAGER [facility] TRIGLYCERIDES 139 <150 mg/dL 04/17/2022 8:53 AM SALES ENABLEMENT MANAGER [facility] HDL CHOLESTEROL 113.0 >40 mg/dL 8:53 AM SALES ENABLEMENT MANAGER [facility] LDL 86 5 - 130 mg/dL 04/17/2022 8:53 AM SALES ENABLEMENT MANAGER [facility] VLDL 28 5 - 55 mg/dL 04/17/2022 8:53 AM [facility] CHOL/HDL RATIO 2.0 0.0 - 4.4 04/17/2022 8:53 AM SALES ENABLEMENT MANAGER [facility] NON-HDL CHOLESTEROL 114 <130 mg/dL 04/17/2022 8:53 AM SALES ENABLEMENT MANAGER [facility] IS THE PATIENT REQUIRED TO BE FASTING? No 04/17/2022 8:53 AM SALES ENABLEMENT MANAGER [facility] Blood Venipuncture / Unknown 04/16/2022 2:54 PM SALES ENABLEMENT MANAGER 04/16/2022 2:54 PM SALES ENABLEMENT MANAGER Chica Saldana MD CHEMISTRY ORDERABLES Final R esult [facility] [address] [place] [address] * HEMOGLOBIN A1C W/ ESTIMATED GLUCOSE (04/16/2022 2:54 PM SALES ENABLEMENT MANAGER) HGB-A1C 5.5 4.0 - 6.0 % 04/17/2022 8:55 AM SALES ENABLEMENT MANAGER [facility] Est Average Glucose 111.2 mg/dL 04/17/2022 8:55 AM SALES ENABLEMENT MANAGER [facility] Blood Venipuncture / Unknown 04/16/2022 2:54 PM SALES ENABLEMENT MANAGER 04/16/2022 2:54 PM SALES ENABLEMENT MANAGER Narrative [facility] - 04/17/2022 8:55 AM SALES ENABLEMENT MANAGER HEMOGLOBIN A1C: DIABETIC PATIENTS: WELL-CONTROLLED: ?? 6.2 - 7.0 INTERMEDIATE WELL-CONTROLLED: ??7.0 - 9.0 POORLY-CONTROLLED: ??>9.0 Chica Saldana MD CHEMISTRY ORDERABLES Final R esult [facility] [address] [place] [address] * (ABNORMAL) CMP (COMPREHENSIVE METABOLIC PANEL) (04/16/2022 2:54 PM SALES ENABLEMENT MANAGER) SODIUM 136 136 - 144 mmol/L 04/17/2022 8:53 AM [facility] POTASSIUM 4.5 3.5 - 5.1 mmol/L 04/17/2022 8:53 AM [facility] CHLORIDE 98(L) 100 - 110 mmol/L 04/17/2022 8:53 AM [facility] CO2, VENOUS 28 22 - 32 mmol/L 04/17/2022 8:53 AM [facility] ANION GAP 14.5 8.0 - 20.0 mmol/L 04/17/2022 8:53 AM [facility] GLUCOSE 108(H) 70 - 99 mg/dL 04/17/2022 8:53 AM [facility] BUN 22(H) 6 - 20 mg/dL 04/17/2022 8:53 AM [facility] CREATININE, BLOOD 0.66 0.60 - 1.10 mg/dL 04/17/2022 8:53 AM [facility] BUN/CREATININE RATIO 33(H) 12 - 20 ratio 04/17/2022 8:53 AM [facility] TOTAL PROTEIN 7.7 6.0 - 8.3 g/dL 04/17/2022 8:53 AM [facility] ALBUMIN 4.7 3.5 - 5.2 g/dL 04/17/2022 8:53 AM [facility] Comment: The colormetric methods used for the determination of Albumin may lead to falsely elevated test results in patients suffering from renal failure or insufficiency due to interference with other proteins. A/G RATIO 1.6 1.0 - 2.0 04/17/2022 8:53 AM [facility] CALCIUM 10.3 8.9 - 10.3 mg/dL 04/17/2022 8:53 AM SALES ENABLEMENT MANAGER [facility] T BILI 0.5 <=1.2 mg/dL 04/17/2022 8:53 AM SALES ENABLEMENT MANAGER [facility] SGOT (AST) 27 <=32 U/L 04/17/2022 8:53 AM SALES ENABLEMENT MANAGER [facility] SGPT (ALT) 17 <=41 U/L 04/17/2022 8:53 AM SALES ENABLEMENT MANAGER [facility] ALKALINE PHOSPHATASE 104 35 - 105 U/L 04/17/2022 8:53 AM SALES ENABLEMENT MANAGER [facility] IS THE PATIENT REQUIRED TO BE FASTING? No 04/17/2022 8:53 AM SALES ENABLEMENT MANAGER [facility] GFR, ESTIMATED >60 >=60 04/17/2022 8:53 AM SALES ENABLEMENT MANAGER [facility] Comment: Creatinine Clearance is the preferred criteria for selecting drug dose adjustments in renally impaired patients. ??The GFR is provided as additional pertinent clinical information. GFR is reported in mL/min/1.73 sq m. Calculation based on the Chronic Kidney Disease Epidemiology Collaboration (CKD- EPI) equation refit without adjustment for race. GFR, EST. >60 >=60 023 8:53 AM SALES ENABLEMENT MANAGER [facility] GFR, EST. NONAFRICAN >60 >=60 04/17/2022 8:53 AM SALES ENABLEMENT MANAGER [facility] Blood Venipuncture / Unknown 04/16/2022 2:54 PM SALES ENABLEMENT MANAGER 04/16/2022 2:54 PM SALES ENABLEMENT MANAGER us Chica Saldana MD CHEMISTRY ORDERABLES Final R esult [facility] [address] [place] [address] documented in this encounter Visit Diagnoses Diagnosis Well adult exam- Primary Routine general medical examination at a health care facility Essential hypertension Unspecified essential hypertension documented in this encounter Additional Health Concerns Assessment Noted Time PHQ-9 Depression Total Score: 0 04/01/19 20 9:00 AM SALES ENABLEMENT MANAGER documented as of this encounter Care Teams Fruit Peeler Relationship Specialty Start Date End Date Chica Saldana MD [address] [place] [address] PCP - General Family Medicine 04/16/22 05/01/23 Laurence Luque MD [address] [phone] Consulting Physician General Surgery 02/01/15 Clemencia Bennett MD [address] [place] [address] Family Medicine 01/30/18 documented as of this encounter
--- OUTSIDE RECORDS SUMMARY | 2024-03-15 01:50 | XMS_ITS | Encounter Summary ---
Author Organization [facility] Address [address] [place] [address] Phone Care Team Providers Care Tailercpa Name Role Phone Laurence Luque MD Unavailable + [phone] Ronit Parish MD Primary Care Provider + [phone] Clemencia Bennett MD Unavailable [phone] Reason for Visit * Reason Comments Medication Refill Encounter Details Date Type Department Care Team (Late st Contact Info) Description 09/14/2021 Refill [facility] - Primary Care - Danny [address] [place] [address] Ronit Parish MD [address] [place] [address] Medication Refill Social History Tobacco [...] encounter Miscellaneous Notes * Telephone Encounter - Stephanie Pearce RN - 09/14/2021 9:20 AM CDT Medication(s) refilled and [facility] Medication Refill Standing Order for Pediatricand Adult Patients. Requested Prescriptions Pending Prescriptions Disp Refills ??? metoprolol tartrate (LOPRESSOR) 25 MG Tablet [Pharmacy Med Name: Metoprolol Tartrate 25 MG OralTablet] 180 Tablet 0 Sig: Take 1 tablet by mouth twice daily Beta-Blockers Protocol Passed - 09/14/2021 9:13 AM Passed - BP on record in the past year Clinician-entered: BP Readings from Last 3 Encounters: 06/15/21 142/75 05/30/21 136/80 12/14/20 142/82 Patient-entered: No data recorded Passed - Visit with relevant provider in past 12 months or upcoming 90 days Recent Visits Date Type Provider Dept 05/30/21 Office Visit Lauren Barber APRN, CNP [facility] 12/14/20 Office Visit Ronit Parish MD [facility] Showing recent visits within past 365 days and meeting all other requirements Future Appointments Date Type Provider Dept 11/13/21 Appointment Ronit Parish MD [facility] Showing future appointments within next 90 days and meeting all other requirements documented in this encounter Plan of Treatment Upcoming Encounters Date Type Department Care Team (Late st Contact Info) Description 03/23/2024 1:00 PM SUPERVISOR COOPERAGE SHOP Appointment [facility] [address] [place] [address] Jose R Pearson MD [address] [place] [address] Discharge Disposition: Discharged to home or Selfcare 03/23/2024 2:30 PM SUPERVISOR COOPERAGE SHOP [facility] [address] [place] [address] Jose R Pearson MD [address] [place] [address] Discharge Disposition: Discharged to home or Selfcare 03/30/2024 10:00 AM SUPERVISOR COOPERAGE SHOP Office Visit [facility] [address] [place] [address] Jose R Pearson MD [address] [place] [address] Discharge Disposition: Discharged to home or Selfcare 03/30/2024 10:30 AM SUPERVISOR COOPERAGE SHOP Lab [facility] [address] [place] [phone] Discharge Disposition: Discharged to home or Selfcare 03/31/2024 1:00 PM SUPERVISOR COOPERAGE SHOP Clinical Support [facility] [address] [place] [phone] Jose R Pearson MD [address] [place] [address] Discharge Disposition: Discharged to home or Selfcare 04/28/2024 1:30 PM SUPERVISOR COOPERAGE SHOP Clinical Support [facility] [address] [place] [phone] Discharge Disposition: Discharged to home or Selfcare documented as of this encounter Visit Diagnoses Diagnosis Essential hypertension Unspecified essential hypertension documented in this encounter Additional Health Concerns Assessment Noted Time PHQ-9 Depression Total Score: 0 04/01/19 20 9:00 AM SUPERVISOR COOPERAGE SHOP documented as of this encounter Care Teams Tailercpa Relationship Specialty Start Date End Date Ronit Parish MD [address] [address] PCP - General Family Medicine 03/01/15 04/15/22 Laurence Luque MD [address] [address] Consulting Physician General Surgery 02/01/15 Clemencia Bennett MD [address] [place] [address] Family Medicine 01/30/18 documented as of this encounter
--- OUTSIDE RECORDS SUMMARY | 2024-03-15 01:50 | XMS_ITS | Encounter Summary ---
Author Organization [facility] Address [address] [place] [address] Phone Care Team Providers Care Dispatcher Maintenance Name Role Phone Laurence Luque MD Unavailable + [phone] Ronit Parish MD Primary Care Provider + [phone] Clemencia Bennett MD Unavailable [phone] Encounter Details Date Type Department Care Team (Late st Contact Info) Description 05/30/2021 11:50 AM CDT Lab [facility] - Primary Care - [address] [address] [facility], [facility] Fever of unknown origin Discharge Disposition: Discharged to home or Selfcare [...] AM CDT documented as of this encounter Progress Notes * Alexia Huerta - 05/30/2021 11:50 AM CDT Angie presents for lab draw per order of Dr. Cottrell dated 05/30/21. Specimen collected from right antecubital without incident. sah documented in this encounter Plan of Treatment Upcoming Encounters Date Type Department Care Team (Late st Contact Info) Description 03/23/2024 1:00 PM DIRECTOR OF GLOBAL TALENT Appointment [facility] Cardiology Services [address] [place] [address] oJse R Pearson MD [address] [place] [address] Discharge Disposition: Discharged to home or Selfcare 03/23/2024 2:30 PM DIRECTOR OF GLOBAL TALENT Appointment [facility] [address] [place] [address] Jose R Pearson MD [address] [place] [address] Discharge Disposition: Discharged to home or Selfcare 03/30/2024 10:00 AM DIRECTOR OF GLOBAL TALENT Office Visit [facility] Oncology Services [address] [place] [address] Jose R Pearson MD [address] [place] [address] Discharge Disposition: Discharged to home or Selfcare 03/30/2024 10:30 AM DIRECTOR OF GLOBAL TALENT Lab [facility] [address] [place] [address] Discharge Disposition: Discharged to home or Selfcare 03/31/2024 1:00 PM DIRECTOR OF GLOBAL TALENT Clinical [facility] [address] [place] [address] Jose R Pearson MD [address] [place] [address] Discharge Disposition: Discharged to home or Selfcare 04/28/2024 1:30 PM DIRECTOR OF GLOBAL TALENT Clinical Support [facility] Oncology Services [address] [place] [address] Discharge Disposition: Discharged to home or Selfcare documented as of this encounter Procedures Procedure Name Priority Date/Time Associated Diagnosis Comments CBC WITH AUTO DIFFERENTIAL Routine 05/30/2021 11:43 AM CDT Fever of unknown origin CMP (COMPREHENSIVE METABOLIC PANEL) Routine 05/30/2021 11:43 AM CDT Fever of unknown origin COMPLETE BLOOD COUNT (CBC) WITH DIFF Routine 05/30/2021 11:43 AM CDT Fever of unknown origin documented in this encounter Results * CBC WITH AUTO DIFFERENTIAL (05/30/2021 11:43 AM CDT) WBC 5.82 4.00 - 12.00 10(3)/mcL 05/30/2021 3:10 PM CDT [facility] RBC 4.53 3.80 - 5.30 10(6)/mcL 05/30/2021 3:10 PM CDT [facility] HEMOGLOBIN (HGB) 13.9 12.0 - 15.8 g/dL 05/30/2021 3:10 PM CDT [facility] HEMATOCRIT (HCT) 42.7 36.0 - 47.0 % 05/30/2021 3:10 PM CDT [facility] MCV 94.3 82.0 - 96.0 fL 05/30/2021 3:10 PM CDT [facility] MCH 30.7 26.0 - 34.0 pg 05/30/2021 3:10 PM CDT [facility] MCHC 32.6 31.0 - 36.0 g/dL 05/30/2021 3:10 PM CDT [facility] PLATELET COUNT 231 140 - 440 10(3)/[facility] 05/30/2021 3:10 PM CDT [facility] RDW 12.7 11.8 - 15.5 % 05/30/2021 3:10 PM CDT [facility] MPV 10.1 9.7 - 12.4 fL 05/30/2021 3:10 PM CDT [facility] NEUTROPHILS 64.0 47.0 - 73.0 % 05/30/2021 3:10 PM CDT [facility] LYMPHOCYTES 27.5 18.0 - 42.0 % 05/30/2021 3:10 PM CDT [facility] MONOCYTES 7.0 4.0 - 12.0 % 05/30/2021 3:10 PM CDT [facility] EOSINOPHILS 1.2 0.0 - 5.0 % 05/30/2021 3:10 PM CDT [facility] BASOPHILS 0.3 0.0 - 1.0 % 05/30/2021 3:10 PM CDT [facility] ABSOLUTE NEUTROPHILS 3.72 1.60 - 7.70 10(3)/mcL 05/30/2021 3:10 PM CDT [facility] ABSOLUTE LYMPHOCYTES 1.60 1.30 - 3.20 10(3)/[facility] 05/30/2021 3:10 PM CDT [facility] ABSOLUTE MONOCYTES 0.41 0.20 - 1.00 10(3)/mcL 05/30/2021 3:10 PM CDT [facility] ABSOLUTE EOSINOPHIL 0.07 0.00 - 0.40 10(3)/[facility] 05/30/2021 3:10 PM CDT [facility] ABSOLUTE BASOPHILS 0.02 0.00 - 0.10 10(3)/mcL 05/30/2021 3:10 PM CDT [facility] NRBC PER 100 WBC 0 05/31/19 3:10 PM CDT [facility] Blood Venipuncture / Unknown 05/30/2021 11:43 AM CDT 05/30/2021 11:43 AM CDT us Lauren Barber JOB BOSS, SCOREKEEPER HEMATOLOGY ORDE JOSR Final Result [facility] [address] [place] [address] * (ABNORMAL) CMP (COMPREHENSIVE METABOLIC PANEL) (05/30/2021 11:43 AM CDT) SODIUM 140 136 - 144 mmol/L 05/30/2021 3:35 PM CDT [facility] POTASSIUM 4.0 3.5 - 5.1 mmol/L 05/30/2021 3:35 PM CDT [facility] CHLORIDE 102 100 - 110 mmol/L 05/30/2021 3:35 PM CDT [facility] CO2, VENOUS 26 22 - 32 mmol/L 05/30/2021 3:35 PM CDT [facility] ANION GAP 16.0 8.0 - 20.0 mmol/L 05/30/2021 3:35 PM CDT [facility] GLUCOSE 92 70 - 99 mg/dL 05/30/2021 3:35 PM CDT [facility] BUN 8 6 - 20 mg/dL 05/30/2021 3:35 PM CDT [facility] CREATININE, BLOOD 0.77 0.60 - 1.10 mg/dL 05/30/2021 3:35 PM CDT [facility] BUN/CREATININE RATIO 10(L) 12 - 20 ratio 05/30/2021 3:35 PM CDT [facility] TOTAL PROTEIN 7.6 6.0 - 8.3 g/dL 05/30/2021 3:35 PM CDT [facility] ALBUMIN 4.5 3.5 - 5.2 g/dL 05/30/2021 3:35 PM CDT [facility] Comment: The colormetric methods used for the determination of Albumin may lead to falsely elevated test results in patients suffering from renal failure or insufficiency due to interference with other proteins. A/G RATIO 1.5 1.0 - 2.0 05/30/2021 3:35 PM CDT [facility] CALCIUM 9.3 8.9 - 10.3 mg/dL 05/30/2021 3:35 PM CDT [facility] T BILI 0.3 <=1.2 mg/dL 05/30/2021 3:35 PM CDT [facility] SGOT (AST) 29 <=32 U/L 05/30/2021 3:35 PM CDT [facility] SGPT (ALT) 23 <=41 U/L 05/30/2021 3:35 PM CDT [facility] ALKALINE PHOSPHATASE 86 35 - 105 U/L 05/30/2021 3:35 PM CDT [facility] GFR, EST. NONAFRICAN >60 >=60 05/30/2021 3:35 PM CDT [facility] GFR, EST. >60 >=60 022 3:35 PM CDT [facility] Comment: Creatinine Clearance is the preferred criteria for selecting drug dose adjustments in renally impaired patients. ??The GFR is provided as additional pertinent clinical information. GFR is reported in mL/min/1.73 sq m. IS THE PATIENT REQUIRED TO BE FASTING? No 05/30/2021 3:35 PM CDT [facility] Blood Venipuncture / Unknown 05/30/2021 11:43 AM CDT 05/30/2021 11:43 AM CDT us Lauren Barber APRN, CNP CHEMISTRY ORDER JASON Final Result [facility] [address] [place] [address] documented in this encounter Visit Diagnoses Diagnosis Fever of unknown origin Fever, unspecified documented in this encounter Additional Health Concerns Assessment Noted Time PHQ-9 Depression Total Score: 0 04/01/19 20 9:00 AM DIRECTOR OF GLOBAL TALENT documented as of this encounter Care Teams Dispatcher Maintenance Relationship Specialty Start Date End Date Ronit Parish MD [address] [phone] PCP - General Family Medicine 03/01/15 04/15/22 Laurence Luque MD [address] [address] Consulting Physician General Surgery 02/01/15 Clemencia Bennett MD [address] [place], [place] [address] Family Medicine 01/30/18 documented as of this encounter
--- OUTSIDE RECORDS SUMMARY | 2024-03-15 01:50 | XMS_ITS | Encounter Summary ---
Author Organization [facility] Address [address] [place] [address] Phone Care Team Providers Care Gathering Machine Setter Name Role Phone Laurence Luque MD Unavailable + [phone] Clemencia Bennett MD Unavailable [phone] Chica Saldana MD Primary Care Provider + [phone] Reason for Visit * Reason Comments Medication Refill Encounter Details Date Type Department Care Team (Late st Contact Info) Description 03/13/2023 Refill [facility] - Primary Care - [address] [place] [address] Chica Saldana MD [address] [place] [address] Medication Refill Social History Tobacco [...] Telephone Encounter - Jamie Figueroa RN - 03/13/2023 1:43 PM CST Medication(s) refilled and signed per [facility] Chronic Medication Refill Standing Order for Pediatricand Adult Patients. Requested Prescriptions Pending Prescriptions Disp Refills ??? metoprolol tartrate (LOPRESSOR) 25 MG Tablet [Pharmacy Med Name: Metoprolol Tartrate 25 MG OralTablet] 180 Tablet 0 Sig: Take 1 tablet by mouth twice daily Beta-Blockers Protocol Passed - 03/13/2023 1:39 PM Passed - BP on record in the past year Clinician-entered: BP Readings from Last 3 Encounters: 10/14/22 138/84 04/16/22 130/80 06/15/21 142/75 Patient-entered: No data recorded Passed - Visit with relevant provider in past 12 months or upcoming 90 days Recent Visits Date Type Provider Dept 10/14/22 Office Visit Chica Saldana MD [facility] 04/16/22 Office Visit Chica Saldana MD [facility] Showing recent visits within past 365 days and meeting all other requirements Future Appointments No visits were found meeting these conditions. Showing future appointments within next 90 days and meeting all other requirements TRICAL INSTRUMENT MAKER documented in this encounter Plan of Treatment Upcoming Encounters Date Type Department Care Team (Late st Contact Info) Description 03/23/2024 1:00 PM ELECTRICAL INSTRUMENT MAKER Appointment [facility] Cardiology Services [address] [place] [address] Jose R Pearson MD [address] [place] [address] Discharge Disposition: Discharged to home or Selfcare 03/23/2024 2:30 PM ELECTRICAL INSTRUMENT MAKER Appointment [facility] [address] [place] [address] Jose R Pearson MD [address] [place] [address] Discharge Disposition: Discharged to home or Selfcare 03/30/2024 10:00 AM ELECTRICAL INSTRUMENT MAKER Office Visit [facility] Oncology Services [address] [place] [address] Jose R Pearson MD [address] [place] [address] Discharge Disposition: Discharged to home or Selfcare 03/30/2024 10:30 AM ELECTRICAL INSTRUMENT MAKER [facility] [address] [place] [address] Discharge Disposition: Discharged to home or Selfcare 03/31/2024 1:00 PM ELECTRICAL INSTRUMENT MAKER Clinical Support [facility] Oncology Services [address] [place] [address] Jose R Pearson MD [address] [place] [address] Discharge Disposition: Discharged to home or Selfcare 04/28/2024 1:30 PM ELECTRICAL INSTRUMENT MAKER Clinical Support [facility] Oncology Services [address] [place] [address] Discharge Disposition: Discharged to home or Selfcare [...] Total Score: 0 04/01/19 20 9:00 AM ELECTRICAL INSTRUMENT MAKER documented as of this encounter Care Teams Gathering Machine Setter Relationship Specialty Start Date End Date Chica Saldana MD [address] [place] [address] PCP - General Family Medicine 1/31/23 2/15/24 Laurence Luque MD [address] [address] Consulting Physician General Surgery 02/01/15 Clemencia Bennett MD [address] [place] [address] Family Medicine 01/30/18 documented as of this encounter
--- OUTSIDE RECORDS SUMMARY | 2024-03-15 01:50 | XMS_ITS | Encounter Summary ---
Author Organization [facility] Address [address] [place] [address] Phone Care Team Providers Care Ribbon Lapper Tender Name Role Phone Laurence Luque MD Unavailable Clemencia Bennett MD Unavailable [phone] Iveth Guzman MD Primary Care Provider [phone] Sony Mcpherson MD Unavailable Jose R Pearson MD Unavailable Reason for Visit * Reason Comments Medication Refill Encounter Details Date Type Department Care Team (Late st Contact Info) Description 07/16/[address] [facility] - Primary Care - [place] [address] [place] [address] Iveth Guzman MD [address] [place] [address] Medication Refill Social History Tobacco [...] Telephone Encounter - Rebeca Francis RN - 07/16/2023 10:57 AM CDT Medication failed the protocol, provider to review and approve the medication order if appropriate. Requested Prescriptions Pending Prescriptions Disp Refills atorvastatin (LIPITOR) 10 MG Tablet [Pharmacy Med Name: Atorvastatin Calcium 10 MG Oral Tablet] 90 Tablet 0 Sig: Take 1 tablet by mouth once daily Hmg CoA Reductase Inhibitors Protocol Failed - 07/16/2023 10:55 AM Failed - Lipid panel in past 12 [...] Dept 05/02/23 Office Visit Iveth Guzman MD [facility] 10/14/22 Office Visit Chica Saldana MD [facility] Showing recent visits within past 365 days and meeting all other requirements Future Appointments No visits were found meeting these conditions. Showing future appointments within next 90 days and meeting all other requirements Passed - No active on record Passed - CMP in past 12 months SODIUM Date Value Ref Range Status 05/02/2023 140 136 - 145 mmol/L Final POTASSIUM Date Value Ref Range Status 05/02/2023 3.7 3.5 - 5.1 mmol/L Final CHLORIDE Date Value Ref Range Status 05/02/2023 106 98 - 107 mmol/L Final CO2, VENOUS Date Value Ref Range Status 05/02/2023 25 22 - 30 mmol/L Final ANION GAP Date Value Ref Range Status 05/02/2023 12.7 <18.0 mmol/L Final GLUCOSE Date Value Ref Range Status 05/02/2023 101 (H) 70 - 99 mg/dL Final BUN Date Value Ref Range Status 05/02/2023 11 10 - 20 mg/dL Final CREATININE, BLOOD Date Value Ref Range Status 05/02/2023 0.80 0.60 - 1.00 mg/dL Final BUN/CREATININE RATIO Date Value Ref Range Status 05/02/2023 14 12 - 20 ratio Final TOTAL PROTEIN Date Value Ref Range Status 05/02/2023 7.4 6.3 - 8.2 g/dL Final ALBUMIN Date Value Ref Range Status 05/02/2023 4.4 3.5 - 5.0 g/dL Final A/G RATIO Date Value Ref Range Status 05/02/2023 1.5 1.0 - 2.2 Final CALCIUM Date Value Ref Range Status 05/02/2023 9.6 8.7 - 10.5 mg/dL Final T BILI Date Value Ref Range Status 05/02/2023 0.6 0.2 - 1.2 mg/dL Final SGOT (AST) Date Value Ref Range Status 05/02/2023 28 5 - 34 U/L Final SGPT (ALT) Date Value Ref Range Status 05/02/2023 30 0 - 55 U/L Final ALKALINE PHOSPHATASE Date Value Ref Range Status 05/02/2023 92 40 - 150 U/L Final GFR, EST. NONAFRICAN Date Value Ref Range Status 05/02/2023 >60 >=60 Final GFR, EST. Date Value Ref Range Status 05/02/2023 >60 >=60 Final GFR, ESTIMATED Date Value Ref Range Status 05/02/2023 >60 >=60 Final Comment: Creatinine Clearance is the preferred criteria for selecting drug dose adjustments in renally impaired patients. The GFR is provided as additional pertinent clinical information. GFR is reported in mL/min/1.73 sq m. Calculation based on the Chronic Kidney Disease Epidemiology Collaboration (CKD- EPI) equation refitwithout adjustment for race. IS THE PATIENT REQUIRED TO BE FASTING? Date Value Ref Range Status 05/02/2023 No Final documented in this encounter Plan of Treatment Upcoming Encounters Date Type Department Care Team (Late st Contact Info) Description 03/23/2024 1:00 PM PALAEONTOLOGIST Appointment [facility] Cardiology Services [address] [place] [address] Jose R Pearson MD [address] [place] [address] Discharge Disposition: Discharged to home or Selfcare 03/23/2024 2:30 PM PALAEONTOLOGIST Appointment [facility] [address] [place] [address] Jose R Pearson MD [address] [place] [address] Discharge Disposition: Discharged to home or Selfcare 03/30/2024 10:00 AM PALAEONTOLOGIST Office Visit [facility] Oncology Services [address] [place] [address] Jose R Pearson MD [address] [place] [address] Discharge Disposition: Discharged to home or Selfcare 03/30/2024 10:30 AM PALAEONTOLOGIST Lab [facility] Oncology Services [address] [place] [address] Discharge Disposition: Discharged to home or Selfcare 03/31/2024 1:00 PM PALAEONTOLOGIST Clinical Support [facility] Oncology Services [address] [place] [address] Jose R Pearson MD [address] [place] [address] Discharge Disposition: Discharged to home or Selfcare 04/28/2024 1:30 PM PALAEONTOLOGIST Clinical Support [facility] Oncology Services [address] [place] [phone] Discharge Disposition: Discharged to home or Selfcare [...] Total Score: 0 04/01/19 20 9:00 AM PALAEONTOLOGIST documented as of this encounter Care Teams Ribbon Lapper Tender Relationship Specialty Start Date End Date Iveth Guzman MD [address] [place] [address] PCP - General Family Medicine 05/02/23 Laurence Luque MD [address] [address] Consulting Physician General Surgery 02/01/15 Clemencia Bennett MD [address] [place] [address] Family Medicine 01/30/18 Sony Mcpherson MD [address] [address] Consulting Physician General Surgery 09/08/23 oJse R Pearson MD [address] [place] [address] Consulting Physician Medical Oncology 10/02/23 documented as of this encounter
--- OUTSIDE RECORDS SUMMARY | 2024-03-15 01:50 | XMS_ITS | Encounter Summary ---
Author Organization [facility] Address [address] [place] [address] Phone Care Team Providers Care Lining Maker Name Role Phone Laurence Luque MD Unavailable + [phone] Clemencia Bennett MD Unavailable [phone] Chica Saldana MD Primary Care Provider + [phone] Reason for Visit * Reason Onset Date Comments Results 04/19/2022 Labs Encounter Details Date Type Department Care Team (Late st Contact Info) Description 04/19/2022 Telephone [facility] - Primary Care - [address] [place] [address] Chica Saldana MD [address] [place] [address] Results (Labs) Social History Tobacco Use Types Packs/Day Years [...] Coronavirus/COVID-19? No / Unsure 04/16/2022 2:03 PM PATIENT ASSISTANT documented as of this encounter Miscellaneous Notes * Telephone Encounter - Leyla Unger, RN - 04/19/2022 8:58 AM CST Angie Cash Derek notified, verbalized understanding. Agreeable to medication. Pharmacy verified. ENT ASSISTANT * Telephone Encounter - Leyla Unger, RN - 04/19/2022 8:52 AM CST ----- Message from Chica Saldnaa MD sent at 04/18/2022 6:13 PM PATIENT ASSISTANT ----- Cholesterol is high at 227, I would recommend a low dose statin if patient is agreeable. All other labs are not worrisome at this time ENT ASSISTANT documented in this encounter Plan of Treatment Upcoming Encounters Date Type Department Care Team (Late st Contact Info) Description 03/23/2024 1:00 PM PATIENT ASSISTANT Appointment [facility] Cardiology Services [address] [place] [address] Jose R Pearson MD [address] [place] [address] Discharge Disposition: Discharged to home or Selfcare 03/23/2024 2:30 PM PATIENT ASSISTANT Appointment [facility] [address] [place] [address] Jose R Pearson MD [address] [place] [address] Discharge Disposition: Discharged to home or Selfcare 03/30/2024 10:00 AM PATIENT ASSISTANT Office Visit [facility] Oncology Services [address] [place] [address] Jose R Pearson MD [address] [place] [address] Discharge Disposition: Discharged to home or Selfcare 03/30/2024 10:30 AM PATIENT ASSISTANT Lab [facility] Oncology Services [address] [place] [address] Discharge Disposition: Discharged to home or Selfcare 03/31/2024 1:00 PM PATIENT ASSISTANT Clinical Support [facility] Oncology Services [address] [place] [address] Jose R Pearson MD [address] [place] [address] Discharge Disposition: Discharged to home or Selfcare 04/28/2024 1:30 PM PATIENT ASSISTANT Clinical Support [facility] Oncology Services [address] [place] [address] Discharge Disposition: Discharged to home or Selfcare documented as of this encounter Goals Goal Patient Goal Type Associated Problems Recent Progress Patient-Stated? Author Exercise 3x per week (30 min per time) Exercise No Chica Saldana MD documented as of this encounter Visit Diagnoses Diagnosis Hyperlipidemia, unspecified hyperlipidemia type- Primary documented in this encounter Additional Health Concerns Assessment Noted Time PHQ-9 Depression Total Score: 0 04/01/19 20 9:00 AM PATIENT ASSISTANT documented as of this encounter Care Teams Lining Maker Relationship Specialty Start Date End Date Chica Saldana MD [address] [place] [address] PCP - General Family Medicine 04/16/22 05/01/23 Laurence Luque MD [address] [address] Consulting Physician General Surgery 02/01/15 Clemencia Bennett MD [address] [place] [address] Family Medicine 01/30/18 documented as of this encounter
--- OUTSIDE RECORDS SUMMARY | 2024-03-15 01:50 | XMS_ITS | Encounter Summary ---
Author Organization [facility] Address [address] [place] [address] Phone Care Team Providers Care Animal Control Specialist Name Role Phone Laurence Luque MD Unavailable [phone] Clemencia Bennett MD Unavailable [phone] Iveth Guzman MD Primary Care Provider [phone] Reason for Referral * Radiology Services (Routine) - Closed Specialty Diagnoses / Procedures Referred By Contac t Referred To Contact Radiology Diagnoses History of breast cancer Procedures [facility]ER[facility]NDA US GUIDANCE AND CORE BREAST BIOPSY RIGHT Iveth Guzman MD [address] [place] [address] Phone: tel: fax: Referral ID Status Reason Start Date Expiration Date Visits Re quested Visits Authorized [id number] Closed 08/19/2023 1 1 Reason for Visit * Radiology Services (Routine) - Closed Specialty Diagnoses / Procedures Referred By Contac jase Referred To Contact Radiology Diagnoses History of breast cancer Procedures FERNANDA US GUIDANCE AND CORE BREAST BIOPSY RIGHT Iveth Guzman MD [address] [place] [address] Phone: tel: fax: Referral ID Status Reason Start Date Expiration Date Visits Re quested Visits Authorized [id number] Closed 08/19/2023 1 1 Encounter Details Date Type Department Care Team (Latest Contact Info) Description 08/20/2023 9:13 AM CDT - 08/20/2023 9:14 AM CDT Hospital Encounter [facility] Ultrasound [address] [place] [address] Iveth Guzman MD [address] [place] [address] Discharge Disposition: Discharged to home or Selfcare [...] once daily 90 Tablet 07/16/2023 10/30/19 24 metoprolol tartrate (LOPRESSOR) 25 MG TabletIndications:E ssential hypertension Take 1 tablet by mouth twice daily 180 Tablet 07/16/2023 10/30/19 24 documented as of this encounter Progress Notes * Iveth Guzman MD - 08/20/2023 9:30 AM CDT Operative note (message to patient deferred awaiting path report.) * Iveth Guzman MD - 08/20/2023 9:14 AM CDT Unfortunately the surgical pathology is consistent with your cancer coming back. You will need to see a specialist to help plan radiation, chemotherapy, and possible surgical excision. documented in this encounter Plan of Treatment Upcoming Encounters Date Type Department Care Team (Late st Contact Info) Description 03/23/2024 1:00 PM AMBULATORY SERVICES REPRESENTATIVE Appointment [facility] Cardiology Services [address] [place] [address] Jose R Pearson MD [address] [place] [address] Discharge Disposition: Discharged to home or Selfcare 03/23/2024 2:30 PM AMBULATORY SERVICES REPRESENTATIVE Appointment [facility] [address] [place] [address] Jose R Pearson MD [address] [place] [address] Discharge Disposition: Discharged to home or Selfcare 03/30/2024 10:00 AM AMBULATORY SERVICES REPRESENTATIVE Office Visit [facility] Oncology Services [address] [place] [address] Jose R Pearson MD [address] [place] [address] Discharge Disposition: Discharged to home or Selfcare 03/30/2024 10:30 AM AMBULATORY SERVICES REPRESENTATIVE Lab [facility] [address] [place] [phone] Discharge Disposition: Discharged to home or Selfcare 03/31/2024 1:00 PM AMBULATORY SERVICES REPRESENTATIVE Clinical Support [facility] [address] [place] [address] Jose R Pearson MD [address] [place] [address] Discharge Disposition: Discharged to home or Selfcare 04/28/2024 1:30 PM AMBULATORY SERVICES REPRESENTATIVE Clinical Support [facility] [address] [place] [address] Discharge Disposition: Discharged to home or Selfcare documented as of this encounter Goals Goal Patient Goal Type Associated Problems Recent Progress Patient-Stated? Author Exercise 3x per week (30 min per time) Exercise No Chica Saldana MD documented as of this encounter Procedures Procedure Name Priority Date/Time Associated Diagnosis Comments [facility] US GUIDANCE AND CORE BREAST BIOPSY RIGHT Routine 08/20/2023 10:36 AM CDT History of breast cancer PATHOLOGY SURGICAL Routine 08/20/2023 10 :02 AM CDT PATHOLOGY SURGICAL Routine 08/20/2023 10 :02 AM CDT History of breast cancer documented in this encounter Results * [facility] US GUIDANCE AND CORE BREAST BIOPSY RIGHT (08/20/2023 10:36 AM CDT) Anatomical Region Laterality Modality breast Right Ultrasound 08/20/2023 10:5 4 AM CDT Addenda Addendum by Jony Harding MD on 08/26/2023 9:14 AM CDT ADDENDUM REPORT: ADDENDUM: This addendum report supersedes the original report dated 08/20/2023 Pathology returns as: 1. ?? Breast, right upper inner quadrant biopsy: Invasive carcinoma of no special type (ductal) 2. ?? Right axillary lymph node biopsy: Metastatic adenocarcinoma, consistent with breast primary. These malignant results are concordant with imaging findings. ?? Recommend oncology consultation, with surgical consultation as clinically warranted. END OF ADDENDUM REPORT EXAM DESCRIPTION: ?? US GUIDED LYMPH NODE BIOPSY-RT; [facility] US GUIDANCE AND CORE BREAST BIOPSY RIGHT REASON FOR STUDY: ?? Abnormal US of breast tissue, recommended for biopsy. ?53-year-old woman with history of right breast cancer status post bilateral mastectomy in 2014. ??Multiple suspicious masses at the right mastectomy site and abnormal right axillary lymph nodes on diagnostic evaluation from 08/18/2023. COMPARISON: 08/18/2023 TECHNIQUE: The procedure was discussed with the patient and the patient agreed to proceed. The patient was scanned and the area of interest in the upper inner right wall/mastectomy site, 7 cm from the nipple, was localized for biopsy. ??This mass correlates with the area of concern on prior imaging studies. This area was targeted for ultrasound-guided core biopsy. After sterile skin prep and ?? 5 ??cc local lidocaine 1% for skin and deep tissue anesthesia, a ?? 14 gauge core ??biopsy needle was used to obtain several cores of tissue from the lesion. Needle placement was documented with sonographic images. Under ultrasound guidance, a ?? ribbon ??clip was placed in the areas sampled. ??There were no immediate post-procedure complications. Attention was then turned to the abnormal right axillary lymph node. The area was prepped and draped in the usual sterile fashion. ?? Local anesthesia was obtained with 5 cc of 1% lidocaine. ??A 16 gauge core needle was utilized to obtain 4 core specimens. ??A coil clip was placed within the lymph node. ??No immediate postprocedure complications were seen. Postprocedure mammogram was not performed due to history of mastectomy. FINDINGS: Ultrasound guided breast biopsy as described above. IMPRESSION: Successful ultrasound-guided biopsy of suspicious right chest wall/mastectomy site mass and suspicious right axillary lymph node. ??Pathology is pending. ??An addendum will be issued when pathology results are available.. THIS IS AN ELECTRONICALLY VERIFIED FINAL REPORT 08/20/2023 10:54 AM - Electronically signed by ??Jony LAKHANI: LESVIA D: ??08/20/2023 10:54 AM T: ??08/20/2023 10:54 AM Report ID: [id number] Reading Location: ??[id number] THIS IS AN ELECTRONICALLY VERIFIED FINAL REPORT 08/26/2023 9:12 AM ??Addendum Electronically signed by Jony Harding M.D. MZ: MZ D: ??08/26/2023 9:12 AM T: ??08/26/2023 9:12 AM Report ID: [id number] Reading Location: ??[id number] Impressions 08/20/2023 10:57 AM CDT IMPRESSION: Successful ultrasound-guided biopsy of suspicious right chest wall/mastectomy site mass and suspicious right axillary lymph node. ??Pathology is pending. ??An addendum will be issued when pathology results are available.. Narrative 08/20/2023 10:57 AM CDT EXAM DESCRIPTION: ?? US GUIDED LYMPH NODE BIOPSY-RT; [facility] US GUIDANCE AND CORE BREAST BIOPSY RIGHT REASON FOR STUDY: ?? Abnormal US of breast tissue, recommended for biopsy. ?53-year-old woman with history of right breast cancer status post bilateral mastectomy in 2013. ??Multiple suspicious masses at the right mastectomy site and abnormal right axillary lymph nodes on diagnostic evaluation from 08/18/2023. COMPARISON: 08/18/2023 TECHNIQUE: The procedure was discussed with the patient and the patient agreed to proceed. The patient was scanned and the area of interest in the upper inner right wall/mastectomy site, 7 cm from the nipple, was localized for biopsy. ??This mass correlates with the area of concern on prior imaging studies. This area was targeted for ultrasound-guided core biopsy. After sterile skin prep and ?? 5 ??cc local lidocaine 1% for skin and deep tissue anesthesia, a ?? 14 gauge core ??biopsy needle was used to obtain several cores of tissue from the lesion. Needle placement was documented with sonographic images. Under ultrasound guidance, a ?? ribbon ??clip was placed in the areas sampled. ??There were no immediate post-procedure complications. Attention was then turned to the abnormal right axillary lymph node. The area was prepped and draped in the usual sterile fashion. ?? Local anesthesia was obtained with 5 cc of 1% lidocaine. ??A 16 gauge core needle was utilized to obtain 4 core specimens. ??A coil clip was placed within the lymph node. ??No immediate postprocedure complications were seen. Postprocedure mammogram was not performed due to history of mastectomy. FINDINGS: Ultrasound guided breast biopsy as described above. THIS IS AN ELECTRONICALLY VERIFIED FINAL REPORT 08/20/2023 10:54 AM - Electronically signed by ??Jony Harding M.D. MZ: LESVIA D: ??08/20/2023 10:54 AM T: ??08/20/2023 10:54 AM Report ID: [id number] Reading Location: ??[id number] Procedure Note Jony Harding MD - 08/20/2023 EXAM DESCRIPTION: US GUIDED LYMPH NODE BIOPSY-RT; [facility] US GUIDANCE AND CORE BREAST BIOPSY RIGHT REASON FOR STUDY: Abnormal US of breast tissue, recommended for biopsy. 53-year-old woman with history of right breast cancer status post bilateral mastectomy in 2013. Multiple suspicious masses at the right mastectomy site and abnormal right axillary lymph nodes on diagnostic evaluation from 08/18/2023. COMPARISON: 08/18/2023 TECHNIQUE: The procedure was discussed with the patient and the patient agreed to proceed. The patient was scanned and the area of interest in the upper inner right wall/mastectomy site, 7 cm from the nipple, was localized for biopsy. This mass correlates with the area of concern on prior imaging studies. This area was targeted for ultrasound-guided core biopsy. After sterile skin prep and 5 cc local lidocaine 1% for skin and deep tissue anesthesia, a 14 gauge core biopsy needle was used to obtain several cores of tissue from the lesion. Needle placement was documented with sonographic images. Under ultrasound guidance, a ribbon clip was placed in the areas sampled. There were no immediate post-procedure complications. Attention was then turned to the abnormal right axillary lymph node. The area was prepped and draped in the usual sterile fashion. Local anesthesia was obtained with 5 cc of 1% lidocaine. A 16 gauge core needle was utilized to obtain 4 core specimens. A coil clip was placed within the lymph node. No immediate postprocedure complications were seen. Postprocedure mammogram was not performed due to history of mastectomy. FINDINGS: Ultrasound guided breast biopsy as described above. THIS IS AN ELECTRONICALLY VERIFIED FINAL REPORT 08/20/2023 10:54 AM - Electronically signed by Jony Harding M.D. MZ: LESVIA Report ID: [id number] Reading Location: [id number] IMPRESSION: Successful ultrasound-guided biopsy of suspicious right chest wall/mastectomy site mass and suspicious right axillary lymph node. Pathology is pending. An addendum will be issued when pathology results are available.. us Iveth Guzman MD [facility] ORDERABLES Edite d Result - Final * Pathology Surgical (08/20/2023 10:02 AM CDT) Only the most recent of2 resultswithin the time period is included. Case Report Surgical Pathology Report ? Case: [id number] ? Authorizing Provider: ??Giancarlo Kumar ? Collected: ? 08/20/2023 10:02 AM ? MD Vish ? Ordering Location: ? [facility] ? Received: ?08/21/2023 11:05 AM ? [facility] ? Ultrasound ? Pathologist: ? Roselia Shelton ? MD Jia ? Specimen: ?Breast, OUTSIDE CASE: [id number] ? 08/28/2023 1:30 PM CDT [facility] Amendment Her2 FISH Analysis: POSITIVE/ AMPLIFIED Results are available in Media Tab. 08/28/2023 1:30 PM [facility] FINAL DIAGNOSIS Image Analysis Panel Completed. Results are available in Synoptic Form. This analysis does not represent a final diagnosis, but is intended for use as an adjunct to the evaluation of the treating physician. For more details, please see the Biomarker synoptic report. 08/28/2023 1:30 PM [facility] Amendment electronically signed by Roselia Shelton MD on 08/28/2023 at 1:30 PM Clinical Information OUTSIDE CASE ([id number]) DIAGNOSIS: A. Breast, right upper inner quadrant, 7 cm from center area 2, ultrasound guided needle biopsy: - Invasive carcinoma of no special type (ductal) Giancarlo Kumar MD 08/28/2023 1:30 PM CDT [facility] Gross Description A. OUTSIDE CASE: [id number] [facility], [place], [place], order for HER2 IHC image analysis on their [id number], block A1. Original H&E slide ([id number]) submitted for tissue match confirmation and imaging. 08/28/2023 1:30 PM CDT [facility] Synoptic Reporting Breast Biomarker Reporting Template BREAST: BIOMARKER REPORTING TEMPLATE - All Specimens Protocol posted: 06/05/2022 ?? Test(s) Performed: ? HER2 by Immunohistochemis try: ?Equivocal (Score 2+) ? Percentage of Cells with Uniform Intense Complete Membrane Staining: ?0 % ? Test Type: ?Food and Drug Administration (FDA) cleared (test / vendor): [employer] ULTRAVIEW DAB DETECTION SYSTEM ? Primary Antibody: ?4B5 ?? Cold Ischemia and Fixation Times: ?Meet requirements specified in latest version of the ASCO / CAP Guidelines ?? Cold Ischemia Time (minutes): ?0 min ?? Fixation Time (hours): ?11.75 hours ?? Testing Performed on Block Number(s): ?[id number] A1 (FFPE) METHODS ?? Fixative: ?Formalin ?? Image Analysis: ?Performed ? Method: ?LEICA APERIO IMAGE ANALYSIS SYSTEM ? Biomarkers Scored by Image Analysis: ?HER2 by IHC ?? Comment(s): ?NONE 08/28/2023 1:30 PM CDT [facility] Other BREAST STRUCTURE / Unknown Non-Phlebotomy Collection / Unknown 08/20/2023 10:02 AM CDT 08/21/2023 11:05 AM CDT Comment:HER-2/CESAR us Giancarlo Kumar MD PATHOLOGY/CYTOLOGY ORDERABLES Edited Result - Final [facility] [address] [place] [address], documented in this encounter Visit Diagnoses Diagnosis History of breast cancer- Primary Personal history of malignant neoplasm of breast documented in this encounter Additional Health Concerns Assessment Noted Time PHQ-9 Depression Total Score: 0 04/01/19 20 9:00 AM AMBULATORY SERVICES REPRESENTATIVE documented as of this encounter Care Teams Animal Control Specialist Relationship Specialty Start Date End Date Iveth Guzman MD [address] [place] [address] PCP - General Family Medicine 05/02/23 Laurence Luque MD [address] [address] Consulting Physician General Surgery 02/01/15 Clemencia Bennett MD [address] [place] [address] Family Medicine 01/30/18 documented as of this encounter
--- OUTSIDE RECORDS SUMMARY | 2024-03-15 01:50 | XMS_ITS | Encounter Summary ---
Author Organization [facility] Care Team Providers Care Fbi Profiler Name Role Phone Laurence Luque MD Unavailable [phone] Ronit Parish MD Primary Care Provider [phone] Clemencia Bennett MD Unavailable [phone] Encounter Details Date Type Department Care Team (Latest Contact Info) Description 06/15/2021 Travel Social History Tobacco Use Types Packs/Day [...] suspected to have Coronavirus/COVID-19? No / Unsure 06/15/2021 8:47 AM CDT documented as of this encounter Plan of Treatment Upcoming Encounters Date Type Department Care Team (Late st Contact Info) Description 03/23/2024 1:00 PM FIREWALL SECURITY ENGINEER Appointment [facility] Cardiology Services [address] [place] [address] Jose R Pearson MD [address] [place] [address] Discharge Disposition: Discharged to home or Selfcare 03/23/2024 2:30 PM FIREWALL SECURITY ENGINEER [facility] [address] [place] [phone] Jose R Pearson MD [address] [place] [address] Discharge Disposition: Discharged to home or Selfcare 03/30/2024 10:00 AM FIREWALL SECURITY ENGINEER Office Visit [facility] Oncology Services [address] [place] [phone] Jose R Pearson MD [address] [place] [address] Discharge Disposition: Discharged to home or Selfcare 03/30/2024 10:30 AM FIREWALL SECURITY ENGINEER Lab [facility] [address] [place] [address] Discharge Disposition: Discharged to home or Selfcare 03/31/2024 1:00 PM FIREWALL SECURITY ENGINEER Clinical Support [facility] Oncology Services [address] [place] [address] Jose R Pearson MD [address] [place] [address] Discharge Disposition: Discharged to home or Selfcare 04/28/2024 1:30 PM FIREWALL SECURITY ENGINEER Clinical Support [facility] Oncology Services [address] [place] [phone] Discharge Disposition: Discharged to home or Selfcare documented as of this encounter Visit Diagnoses Not on filedocumented in this encounter Additional Health Concerns Assessment Noted Time PHQ-9 Depression Total Score: 0 01/16/20 20 9:00 AM FIREWALL SECURITY ENGINEER documented as of this encounter Care Teams Fbi Profiler Relationship Specialty Start Date End Date Ronit Parish MD [address] [phone] PCP - General Family Medicine 03/01/15 04/15/22 Laurence Luque MD [address] [phone] Consulting Physician General Surgery 02/01/15 Clemencia Bennett MD [address] [place] [address] Family Medicine 01/30/18 documented as of this encounter
--- OUTSIDE RECORDS SUMMARY | 2024-03-15 01:50 | XMS_ITS | Encounter Summary ---
Author Organization [facility] Address [address] [place] [address] Phone Care Team Providers Care Plan Consultant Name Role Phone Laurence Luque MD Unavailable [phone] Clemencia Bennett MD Unavailable [phone] Chica Saldana MD Primary Care Provider + [phone] Reason for Visit * Reason Comments Medication Refill Encounter Details Date Type Department Care Team (Late st Contact Info) Description 11/29/2022 Refill [facility] - Primary Care - [place] [address] [place] [address] Chica Saldana MD [address] [place] [address] Medication Refill Social History Tobacco [...] Telephone Encounter - Stephanie Pearce RN - 11/29/2022 11:15 AM CDT Medication(s) refilled and [facility] Medication Refill Standing Order for Pediatricand Adult Patients. Requested Prescriptions Pending Prescriptions Disp Refills ??? metoprolol tartrate (LOPRESSOR) 25 MG Tablet [Pharmacy Med Name: Metoprolol Tartrate 25 MG OralTablet] 180 Tablet 0 Sig: Take 1 tablet by mouth twice daily Beta-Blockers Protocol Passed - 11/29/2022 11:05 AM Passed - BP on record in the past year Clinician-entered: BP Readings from Last 3 Encounters: 10/14/22 138/84 04/16/22 130/80 06/15/21 142/75 Patient-entered: No data recorded Passed - Visit with relevant provider in past 12 months or upcoming 90 days Recent Visits Date Type Provider Dept 10/14/22 Office Visit Chica Saldana MD [facility] 04/16/22 Office Visit Chica Saldana MD [facility] Showing recent visits within past 365 days and meeting all other requirements Future Appointments Date Type Provider Dept 12/04/22 Appointment Chica Saldana MD [facility] Showing future appointments within next 90 days and meeting all other requirements documented in this encounter Plan of Treatment Upcoming Encounters Date Type Department Care Team (Late st Contact Info) Description 03/23/2024 1:00 PM AMMUNITION STORAGE SUPERINTENDENT Appointment [facility] Cardiology Services [address] [place] [address] Jose R Pearson MD [address] [place] [address] Discharge Disposition: Discharged to home or Selfcare 03/23/2024 2:30 PM AMMUNITION STORAGE SUPERINTENDENT Appointment [facility] [address] [place] [address] Jose R Pearson MD [address] [place] [address] Discharge Disposition: Discharged to home or Selfcare 03/30/2024 10:00 AM AMMUNITION STORAGE SUPERINTENDENT Office Visit [facility] Oncology Services [address] [place] [address] Jose R Pearson MD [address] [place] [address] Discharge Disposition: Discharged to home or Selfcare 03/30/2024 10:30 AM AMMUNITION STORAGE SUPERINTENDENT Lab [facility] Oncology Services [address] [place] [phone] Discharge Disposition: Discharged to home or Selfcare 03/31/2024 1:00 PM AMMUNITION STORAGE SUPERINTENDENT Clinical Support [facility] Oncology Services [address] [place] [address] Jose R Pearson MD [address] [place] [address] Discharge Disposition: Discharged to home or Selfcare 04/28/2024 1:30 PM AMMUNITION STORAGE SUPERINTENDENT Clinical Support [facility] Oncology Services [address] [place] [address] Discharge Disposition: Discharged to home or Selfcare [...] Total Score: 0 04/01/19 20 9:00 AM AMMUNITION STORAGE SUPERINTENDENT documented as of this encounter Care Teams Plan Consultant Relationship Specialty Start Date End Date Chica Saldana MD [address] [place] [address] PCP - General Family Medicine 04/16/22 05/01/23 aLurence Luque MD [address] [address] Consulting Physician General Surgery 02/01/15 Clemencia Bennett MD [address] [place] [address] Family Medicine 01/30/18 documented as of this encounter
--- OUTSIDE RECORDS SUMMARY | 2024-03-15 01:50 | XMS_ITS | Encounter Summary ---
Author Organization [facility] Address [address] [place] [address] Phone Care Team Providers Care Fryer Operator Name Role Phone Laurence Luque MD Unavailable [phone] Ronit Parish MD Primary Care Provider [phone] Clemencia Bennett MD Unavailable [phone] Reason for Visit * Reason Onset Date Comments Form Completion 10/26/2021 Mastectomy Order Encounter Details Date Type Department Care Team (Late st Contact Info) Description 10/26/2021 Telephone [facility] - Primary Care - [place] [address] [place] [address] Ronit Parish MD [address] [place] [address] Form Completion (Mastectomy Order) Social History Tobacco Use Types Packs/Day Years [...] Miscellaneous Notes * Telephone Encounter - Leyla Unger CMA - 10/26/2021 8:46 AM CDT Received order sheet from [facility] [facility] for mastectomy products. Form signed by PCP and faxed back with success. documented in this encounter Plan of Treatment Upcoming Encounters Date Type Department Care Team (Late st Contact Info) Description 03/23/2024 1:[address] HOGGER OPERATOR Appointment [facility] Cardiology Services [address] [place] [address] Jose R Pearson MD [address] [place] [address] Discharge Disposition: Discharged to home or Selfcare 03/23/2024 2:[address] HOGGER OPERATOR Appointment [facility] [address] [place] [address] Jose R Pearson MD [address] [place] [address] Discharge Disposition: Discharged to home or Selfcare 03/30/2024 10:[address] HOGGER OPERATOR Office Visit [facility] Oncology Services [address] [place] [address] Jose R Pearson MD [address] [place] [address] Discharge Disposition: Discharged to home or Selfcare 03/30/2024 10:[address] HOGGER OPERATOR Lab [facility] Oncology Services [address] [place] [address] Discharge Disposition: Discharged to home or Selfcare 03/31/2024 1:[address] HOGGER OPERATOR Clinical Support [facility] Oncology Services [address] [place] [address] Jose R Pearson MD [address] [place] [address] Discharge Disposition: Discharged to home or Selfcare 04/28/2024 1:[address] HOGGER OPERATOR Clinical Support [facility] Oncology Services [address] [place] [address] Discharge Disposition: Discharged to home or Selfcare documented as of this encounter Visit Diagnoses Not on filedocumented in this encounter Additional Health Concerns Assessment Noted Time PHQ-9 Depression Total Score: 0 04/01/19 9:[address] HOGGER OPERATOR documented as of this encounter Care Teams Fryer Operator Relationship Specialty Start Date End Date Ronit Parish MD #[address] [address] PCP - General Family Medicine 03/01/15 04/15/22 Laurence Luque MD #[address] [address] Consulting Physician General Surgery 02/01/15 Clemencia Bennett MD [address] [place] [address] Family Medicine 01/30/18 documented as of this encounter
--- OUTSIDE RECORDS SUMMARY | 2024-03-15 01:50 | XMS_ITS | Encounter Summary ---
Author Organization [facility] Address [address] [facility] [place] [address] Phone Care Team Providers Care Gin Inspector Name Role Phone Laurence Luque MD Unavailable Clemencia Bennett MD Unavailable [phone] Iveth Guzman MD Primary Care Provider [phone] Reason for Referral * Medical Care (Routine) - Open Specialty Diagnoses / Procedures Referred By Martin laguna Referred To Contact Diagnoses Mass overlapping multiple quadrants of right breast Procedures OFFICE/OP NEW LVL 3 LOW MDM/30-44 MIN OFFICE/OP EST LVL 3 LOW MDM/20-29 MIN Iveth Guzman MD [address] [facility] [place] [address] Phone: tel: fax: [facility] Oncology Services [address] [place] [phone] Phone: tel: fax: Referral ID Status Reason Start Date Expiration Date Visits Re quested Visits Authorized [id number] Open 08/19/2023 1 11 Scheduling Instructions Angie is being referred for breast mass--previously seen by Dr. Pearson Please contact patient for scheduling questions or concerns. Encounter Details Date Type Department Care Team (Late st Contact Info) Description 08/19/2023 Telephone [facility] - Primary Care - [place] [address] [place] [address] Iveth Guzman MD [address] [place] [address] Social History Tobacco Use Types Packs/Day Years [...] as of this encounter Miscellaneous Notes * Addendum Note - Iveth Guzman MD - 08/19/2023 2:28 PM CDTAddended by: IVETH GUZMAN on: 08/19/2023 02:28 PM Modules accepted: Orders * Telephone Encounter - Rebeca Francis RN - 08/19/2023 1:00 PM CDT Please see pt's MyChart response. * Telephone Encounter - Rebeca Francis RN - 08/19/2023 11:39 AM CDT ----- Message from Iveth Guzman MD sent at 08/19/2023 10:39 AM CDT ----- I am sad to say that the ultrasound of the breast showed several abnormal areas, and you will need further testing. Who did you see when you were being treated for breast problems before? documented in this encounter Plan of Treatment Upcoming Encounters Date Type Department Care Team (Late st Contact Info) Description 03/23/2024 1:00 PM BREAD DISTRIBUTOR Appointment [facility] Cardiology Services [address] [place] [address] Jose R Pearson MD [address] [place] [address] Discharge Disposition: Discharged to home or Selfcare 03/23/2024 2:30 PM BREAD DISTRIBUTOR Appointment [facility] [address] [place] [address] Jose R Pearson MD [address] [place] [address] Discharge Disposition: Discharged to home or Selfcare 03/30/2024 10:00 AM BREAD DISTRIBUTOR Office Visit [facility] Oncology Services [address] [place] [address] Jose R Pearson MD [address] [place] [address] Discharge Disposition: Discharged to home or Selfcare 03/30/2024 10:30 AM BREAD DISTRIBUTOR Lab [facility] Oncology Services [address] [place] [address] Discharge Disposition: Discharged to home or Selfcare 03/31/2024 1:00 PM BREAD DISTRIBUTOR Clinical Support [facility] Oncology Services [address] [place] [address] Jose R Pearson MD [address] [place] [address] Discharge Disposition: Discharged to home or Selfcare 04/28/2024 1:30 PM BREAD DISTRIBUTOR Clinical Support [facility] Oncology Services [address] [place] [address] Discharge Disposition: Discharged to home or Selfcare Scheduled Referrals Name Type Priority Associated Diagnoses Orde r Schedule HEMATOLOGY ONCOLOGY REFERRAL Outpatient Referral Routine Mass overlapping multiple quadrants of right breast Expected: 08/19/2023, Expires: 08/18/2024 documented as of this encounter Goals Goal Patient Goal Type Associated Problems Recent Progress Patient-Stated? Author Exercise 3x per week (30 min per time) Exercise No Chica Saldana MD documented as of this encounter Visit Diagnoses Diagnosis Mass overlapping multiple quadrants of right breast- Primary documented in this encounter Additional Health Concerns Assessment Noted Time PHQ-9 Depression Total Score: 0 04/01/19 20 9:00 AM BREAD DISTRIBUTOR documented as of this encounter Care Teams Gin Inspector Relationship Specialty Start Date End Date Iveth Guzman MD [address] [place] [address] PCP - General Family Medicine 05/02/23 Laurence Luque MD #[address] [address] Consulting Physician General Surgery 02/01/15 Clemencia Bennett MD [address] [place] [address] Family Medicine 01/30/18 documented as of this encounter
--- OUTSIDE RECORDS SUMMARY | 2024-03-15 01:50 | XMS_ITS | Encounter Summary ---
Author Organization [facility] [email or web address] [facility] Care Team Providers Care Thermal Cutting Machine Operator Name Role Phone Laurence Luque MD Unavailable [phone] Clemencia Bennett MD Unavailable [phone] Iveth Guzman MD Primary Care Provider [phone] Encounter Details Date Type Department Care Team (Latest Contact Info) Description 05/02/2023 Travel Social History Tobacco Use Types Packs/Day [...] st Contact Info) Description 03/23/2024 1:00 PM JAVA APPLICATION ENGINEER Appointment [facility] Services [address] [place] [address] Jose R Pearson MD [address] [place] [address] Discharge Disposition: Discharged to home or Selfcare 03/23/2024 2:30 PM JAVA APPLICATION ENGINEER Appointment [facility] [address] [place] [address] Jose R Pearson MD [address] [place] [address] Discharge Disposition: Discharged to home or Selfcare 03/30/2024 10:00 AM JAVA APPLICATION ENGINEER Office Visit [facility] Oncology Services [address] [place] [address] Jose R Pearson MD [address] [place] [address] Discharge Disposition: Discharged to home or Selfcare 03/30/2024 10:30 AM JAVA APPLICATION ENGINEER Lab [facility] Oncology Services [address] [place] [address] Discharge Disposition: Discharged to home or Selfcare 03/31/2024 1:00 PM JAVA APPLICATION ENGINEER Clinical Support [facility] Oncology Services [address] [place] [address] Jose R Pearson MD [address] [place] [address] Discharge Disposition: Discharged to home or Selfcare 04/28/2024 1:30 PM JAVA APPLICATION ENGINEER Clinical Support [facility] Oncology Services [address] [place] [address] Discharge Disposition: Discharged to home or Selfcare documented as of this encounter Goals Goal Patient Goal Type Associated Problems Recent Progress Patient-Stated? Author Exercise 3x per week (30 min per time) Exercise Chica Louis MD documented as of this encounter Visit Diagnoses Not on filedocumented in this encounter Additional Health Concerns Assessment Noted Time PHQ-9 Depression Total Score: 0 04/01/19 20 9:00 AM JAVA APPLICATION ENGINEER documented as of this encounter Care Teams Thermal Cutting Machine Operator Relationship Specialty Start Date End Date Iveth Guzman MD [address] [place] [address] PCP - General Family Medicine 05/02/23 Laurence Luque MD #[address] [address] Consulting Physician General Surgery 02/01/15 Clemencia Bennett MD [address] [place] [address] Family Medicine 01/30/18 documented as of this encounter
--- OUTSIDE RECORDS SUMMARY | 2024-03-15 01:50 | XMS_ITS | Encounter Summary ---
Author Organization [facility] Address [address] [place] [address] Phone Care Team Providers Care Airfield Engineer Officer Name Role Phone Laurence Luque MD Unavailable + [phone] Ronit Parish MD Primary Care Provider + [phone] Clemencia Bennett MD Unavailable [phone] Reason for Visit * Reason Comments Fever Abdominal Pain Encounter Details Date Type Department Care Team (Late st Contact Info) Description 06/15/2021 8:50 AM CDT - 06/15/2021 1:54 PM CDT Emergency [facility] Emergency [address] [place] [address] Cody Graf MD Nausea and vomiting Discharge Disposition: Discharged to home or Selfcare [...] AM CDT documented as of this encounter Last Filed Vital Signs Vital Sign Reading Time Taken Comments Blood Pressure 142/75 06/15/2021 1:50 PM CDT Pulse 89 06/15/2021 1:50 PM CDT Temperature 38.8 ??C (101.9 ??F) 06/15/2021 8:46 AM C DT Respiratory Rate 18 06/15/2021 8:46 AM CDT Oxygen Saturation 100% 06/15/2021 1:50 PM CDT Inhaled Oxygen Concentration - - Weight 64 kg (141 lb) 06/15/2021 8:46 AM CDT Height 154.9 cm (5' 1 ) 06/15/2021 8:46 AM CDT Body Mass Index 26.64 06/15/2021 8:46 AM CDT documented in this encounter Discharge Instructions * Attachments The following attachments cannot be sent through Care Everywhere. * Community-Acquired Pneumonia Adult (Citizen Of [place]) documented in this encounter Medications at Time of Discharge Multiple Vitamin (MULTI-VITAMIN PO) Take 1 Tab by mouth daily. levoFLOXacin (LEVAQUIN) 500 MG Tablet Take 1 Tablet by mouth daily for 5 days. 5 Tablet 06/15/2021 06/20/2021 metoprolol tartrate (LOPRESSOR) 25 MG TabletIndications: Essential hypertension Take 1 tablet by mouth twice daily 180 Tablet 06/11/2021 09/12/2021 documented as of this encounter ED Notes * Caron Moser RN - 06/15/2021 1:52 PM CDT Patient discharged. Discharge instructions and patient educational material reviewed with patient; questions and concerns addressed; patient verbalizes understanding, using teach back. Patient was given 1 prescription. Patient discharged ambulatory with steady gait to exit with no distress noted. SANDHYA D/C'ed with Henrry cath intact. * Caron Moser RN - 06/15/2021 12:38 PM CDT Patient returned from CT * Caron Moser RN - 06/15/2021 12:30 PM CDT Patient to CT via stretcher * Caron Moser RN - 06/15/2021 12:27 PM CDT Patient resting on stretcher with no distress noted. Reviewed plan of care with understanding verbalized * Caron Moser RN - 06/15/2021 11:30 AM CDT Resting on stretcher with no distress noted * Caron Moser RN - 06/15/2021 10:37 AM CDT Patient resting on stretcher with no distress noted. Denies pain or nausea at this time * Cody Graf MD - 06/15/2021 9:48 AM CDT Chief Complaint Patient presents with ??? Fever ??? Abdominal Pain The patient is a 51-year-old female who presents the emergency department with complaints of fever and right upper quadrant abdominal pain radiating to bed which is been present intermittently for the past few weeks. Patient recently has had nausea and vomiting as well as a cough. Patient states she took Tylenol about 6:00 a.m. this morning for fever but despite this is 101.9 in triage. Patient denies dysuria/urgency/frequency. She does note that food has worsened pain and has resulted in a nausea with vomiting. The patient still has her gallbladder. No current facility-administered medications for this encounter. Current Outpatient Medications Medication Sig Dispense Refill ??? levoFLOXacin (LEVAQUIN) 500 MG Tablet Take 1 Tablet by mouth daily for 5 days. 5 Tablet 0 ??? metoprolol tartrate (LOPRESSOR) 25 MG Tablet Take 1 tablet by mouth twice daily 180 Tablet 0 ??? Multiple Vitamin (MULTI-VITAMIN PO) Take 1 Tab by mouth daily. No Known Allergies Past Medical History Positives Diagnosis Date ??? Breast cancer (HCC) ??? 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 GERD (gastroesophageal reflux disease) ??? HTN (hypertension) Past Surgical History: Procedure Laterality Date ??? COLONOSCOPY N/A 09/30/2018 Procedure: COLONOSCOPY - HEMORRHOIDS, NEGATIVE TERMINAL ILEUM; Surgeon: Patrice Hickman DO; Location: [facility]; Service: Gastroenterology ??? MASTECTOMY Bilateral 2013 ??? TUBAL LIGATION Social History Socioeconomic History ??? Marital status: Spouse name: Not on file ??? Number of children: Not on file ??? Years of education: Not on file ??? Highest education level: 12th grade Occupational History ??? Not on file Tobacco Use ??? Smoking status: Never Smoker ??? Smokeless tobacco: Never Used Vaping Use ??? Vaping Use: Never used Substance and Sexual Activity ??? Alcohol use: Yes Alcohol/week: 0.0 oz Comment: rarely ??? Drug use: No ??? Sexual activity: Not on file Other Topics Concern ??? Not on file Social History Narrative ??? Not on file BP 142/75 Pulse 89 Temp (!) 101.9 ??F (38.8 ??C) (Tympanic) Resp 18 Ht 5' 1 (1.549 m) Wt141 lb (64 kg) LMP 05/22/2018 (Approximate) SpO2 100% BMI 26.64 kg/m?? Review of Systems Constitutional: Positive for appetite change and fever. HENT: Negative. Respiratory: Positive for cough. Cardiovascular: Negative. Gastrointestinal: Positive for abdominal pain, nausea and vomiting. Genitourinary: Negative. Musculoskeletal: Positive for back pain. All other systems reviewed and are negative. Physical Exam Vitals and nursing note reviewed. Constitutional: General: She is not in acute distress. Appearance: She is well-developed and normal weight. HENT: Head: Normocephalic and atraumatic. Eyes: Extraocular Movements: Extraocular movements intact. Pupils: Pupils are equal, round, and reactive to light. Cardiovascular: Rate and Rhythm: Normal rate and regular rhythm. Heart sounds: Normal heart sounds. No murmur heard. Pulmonary: Effort: Pulmonary effort is normal. No respiratory distress. Breath sounds: Normal breath sounds. No wheezing or rales. Abdominal: General: Abdomen is flat. Palpations: Abdomen is soft. Tenderness: There is abdominal tenderness in the right upper quadrant. There is right CVA tenderness. There is no guarding or rebound. Hernia: No hernia is present. Skin: General: Skin is warm and dry. Neurological: General: No focal deficit present. Mental Status: She is alert and oriented to person, place, and time. Psychiatric: Mood and Affect: Mood normal. Behavior: Behavior normal. Procedures Imaging Results CT ABDOMEN PELVIS W/ CONTRAST (Final result) Result time 06/15/21 14:06:25 Final result by Bhupinder Lopez MD (06/15/21 14:06:25) Impression: IMPRESSION: Left lung base demonstrates 3.9 cm confluent soft tissue density which likely represents a pneumonic infiltrate though malignancy is difficult to exclude in light of history of breast cancer. Please correlate clinically and follow until clear. Additional band like densities both lung bases likely related to atelectasis as above. Observation on follow-up suggested. No acute abdominal or pelvic abnormality. Stat prelim report at time of imaging due to dictation down time.. Narrative: EXAM DESCRIPTION: CT ABDOMEN PELVIS W/ CONTRAST REASON FOR STUDY: Abnormal urinalysis today. Hematuria. Previous history of right breast cancer in 2014. TECHNIQUE: CT scan of the abdomen and pelvis performed with intravenous and without oral contrast using helical scanning technique with dynamic intravenous contrast injection. Reconstructed coronal and sagittal MPR images reviewed. All images stored on PACS. Automated exposure control was used as a dose optimization technique for this examination. CONTRAST TYPE/DOSE: 71 cc Isovue 370 injected via right antecubital fossa COMPARISON: None available FINDINGS: LOWER CHEST: Confluent soft tissue density lesion left lower lobe measures 3.9 x 3.0 cm in transverse section on axial image 11 of series 4. Air bronchograms extend through this region without deviation. This is likely related to focus of pneumonia though a mass lesion is difficult to exclude specially in light of history of breast cancer. Additional band like densities within the anterior aspect of the left lower lobe in the right middle lobe likely related to atelectasis with pneumonic infiltrate not excluded. No pleural effusion or pneumothorax. LIVER: Normal size. No identified cystic or solid masses. GALLBLADDER: Normally distended BILE DUCTS: No intrahepatic or extrahepatic ductal [...] mass or adenopathy. REPRODUCTIVE: No significant abnormality. VASCULATURE: No abdominal aortic aneurysm. MUSCULOSKELETAL: No significant abnormality. OTHER: No other abnormality. THIS IS AN ELECTRONICALLY VERIFIED FINAL REPORT 06/15/2021 2:03 PM - Electronically signed by Bhupinder Lopez M.D. RB: CORAZON Report ID: [id number] Reading Location: [place] [address] US ABDOMEN LIMITED LEVEL 3 THREE ORGAN [id number] (Final result) Result time 06/15/21 12:58:12 Final result by Nasima Lopez DO (06/15/21 12:58:12) Impression: IMPRESSION: Grossly unremarkable right upper quadrant abdominal ultrasound. No definite sonographic evidence of cholecystitis or cholelithiasis. Narrative: EXAM DESCRIPTION: US ABDOMEN LIMITED LEVEL 3 THREE ORGAN REASON FOR STUDY: Right upper quadrant abdominal pain, nausea, vomiting and fever . Fever, right upper quadrant pain radiating to back for 3 weeks. TECHNIQUE: Ultrasound of the right upper quadrant of the abdomen was performed with grayscale and color doppler. COMPARISON: None FINDINGS: PANCREAS: Visualized portions of the pancreas are within normal limits. Portions of the pancreatic body and tail are obscured due to bowel gas. LIVER: The liver is grossly normal in echogenicity. There is no definite sonographic evidence of focal hepatic lesion. There is documentation of hepatopetal flow in the portal vein. GALLBLADDER: There is no definite sonographic evidence of cholelithiasis. The gallbladder wall measures 0.2 cm in thickness. There is no definite of pericholecystic fluid. BILIARY: There is no intrahepatic or extrahepatic biliary ductal dilatation. Common bile duct measures 0.5 cm in diameter. RIGHT KIDNEY: Normal size. Normal echogenicity. No solid mass or cyst. No hydronephrosis. Measures 10.8 x 4.7 x 3.7 cm. OTHER: No other significant findings. THIS IS AN ELECTRONICALLY VERIFIED FINAL REPORT 06/15/2021 11:33 AM - Electronically signed by Nasima Lopez D.O. PS: ASHLEE Report ID: [id number] Reading Location: [place] [address] Labs Reviewed CMP (COMPREHENSIVE METABOLIC PANEL) - Abnormal; Notable for the following components: Result Value SODIUM 135 (*) CHLORIDE 97 (*) GLUCOSE 105 (*) All other components within normal limits URINALYSIS REFLEX IF INDICATED BY ABNORMAL RESULTS - Abnormal; Notable for the following components: WBC ESTERASE 25 /uL (*) PROTEIN, RANDOM URINE 30 mg/dL (*) UROBILINOGEN 1 mg/dL (*) URINE BLOOD 150 /uL (*) URINE RBC'S 3-5 (*) BACTERIA, URINE Few (*) All other components within normal limits CBC WITH AUTO DIFFERENTIAL - Abnormal; Notable for the following components: WBC 12.12 (*) NEUTROPHILS 82.3 (*) LYMPHOCYTES 9.5 (*) ABSOLUTE NEUTROPHILS 9.97 (*) ABSOLUTE LYMPHOCYTES 1.15 (*) All other components within normal limits LIPASE - Normal CULTURE, URINE COMPLETE BLOOD COUNT (CBC) WITH DIFF Narrative: The following orders were created for panel order Complete Blood Count (CBC) WITH Diff. Procedure Abnormality Status --------- ------ CBC with Auto Differential[[id number]] Abnormal Final result Please view results for these tests on the individual orders. EXTRA TUBES Narrative: The following orders were created for panel order Extra Tubes. Procedure Abnormality Status --------- ------ Blue Top Tube[[id number]] Final result Gold Top Tube[[id number]] Final result Lavender Top Tube[[id number]] Final result Please view results for these tests on the individual orders. BLUE TOP TUBE GOLD TOP TUBE LAVENDER TOP TUBE MDM Number of Diagnoses or Management Options CAP (community acquired pneumonia): new, needed workup Fever: new, needed workup Nausea and vomiting: new, needed workup Right upper quadrant abdominal pain: new, needed workup Amount and/or Complexity of Data Reviewed Clinical lab tests: ordered and reviewed Tests in the radiology section of CPT??: ordered and reviewed Decide to obtain previous medical records or to obtain history from someone other than the patient:yes Review and summarize past medical records: yes Independent visualization of images, tracings, or specimens: yes Risk of Complications, Morbidity, and/or Mortality Presenting problems: moderate Diagnostic procedures: moderate Management options: moderate Coding Clinical Impression 1. Right upper quadrant abdominal pain 2. Fever 3. Nausea and vomiting 4. CAP (community acquired pneumonia) The patient remained stable throughout their ED stay. My clinical impression was discussed with thepatient/family. Labs and radiology results were reviewed with them. I gave them the opportunity to ask questions, and addressed them as completely as possible given the information available at present. The therapeutic plan was discussed, instructions were given and the importance of primary care follow up was stressed and encouraged. The patient/family voiced understanding of the plan, indications to return, and the need for follow up. * Caron Moser RN - 06/15/2021 9:46 AM CDT Patient reports Zofran has been effective for nausea * Caron Moser RN - 06/15/2021 9:[address] Graf at bedside * Caron Moser RN - 06/15/2021 9:27 AM CDT Pt medicated per provider orders. Pt educated on intended effects and side effects of medication and verbalized understanding, able to provide teach back of education. * Rebeca Luciano RN - 06/15/2021 8:50 AM CDT Patient ambulatory to triage with c/o fever and RUQ abdominal pain radiating into back intermittently for a couple of weeks. Patient also reports cough. Patient states she saw her PCP for symptoms and was prescribed benzonatate. Patient reports nausea and vomiting starting last night. Patient states she took tylenol around 0600 today for fever. Patient febrile in triage. Respirations unlabored. 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 [address] [place] [address] Jose R Pearson MD [address] [place] [address] Discharge Disposition: Discharged to home or Selfcare 03/30/2024 10:00 AM DEVELOPER [employer]ING [employer] Office Visit [facility] Oncology Services [address] [place] [address] Jose R Pearson MD [address] [place] [address] Discharge Disposition: Discharged to home or Selfcare 03/30/2024 10:30 AM DEVELOPER TRADING [employer]S Lab [facility] Oncology Services [address] [place] [address] Discharge Disposition: Discharged to home or Selfcare 03/31/2024 1:00 PM DEVELOPER [employer] Clinical Support [facility] Oncology Services [address] [place] [address] Jose R Pearson MD [address] [place] [address] Discharge Disposition: Discharged to home or Selfcare 04/28/2024 1:30 PM DEVELOPER [employer]ING [employer] Clinical Support [facility] Oncology Services [address] [place] [address] Discharge Disposition: Discharged to home or Selfcare documented as of this encounter Procedures Procedure Name Priority Date/Time Associated Diagnosis Comments CT ABDOMEN PELVIS W/ CONTRAST STAT 06/15/2021 12:36 PM CDT US ABDOMEN LIMITED LEVEL 3 THREE ORGAN STAT 06/15/2021 10:25 AM CDT EXTRA TUBES STAT 06/15/2021 9:05 AM CDT URINALYSIS REFLEX IF INDICATED BY ABNORMAL RESULTS STAT 06/15/2021 9:05 AM CDT GOLD TOP TUBE STAT 06/15/2021 9:05 AM CDT BLUE TOP TUBE STAT 06/15/2021 9:05 AM CDT LAVENDER TOP TUBE STAT 06/15/2021 9:0 5 AM CDT CBC WITH AUTO DIFFERENTIAL STAT 06/15/2021 9:05 AM CDT LIPASE STAT 06/15/2021 9:05 AM CDT CULTURE, URINE STAT 06/15/2021 9:05 AM CDT CMP (COMPREHENSIVE METABOLIC PANEL) STAT 06/15/2021 9:05 AM CDT COMPLETE BLOOD COUNT (CBC) WITH DIFF STAT 06/15/2021 9:05 AM CDT documented in this encounter Results * CT ABDOMEN PELVIS W/ CONTRAST (06/15/2021 12:36 PM CDT) Anatomical Region Laterality Modality Abdomen N/A Computed Tomogra phy 06/15/2021 2:03 PM CDT Impressions 06/15/2021 2:06 PM CDT IMPRESSION: ?? Left lung base demonstrates 3.9 cm confluent soft tissue density which likely represents a pneumonic infiltrate though malignancy is difficult to exclude in light of history of breast cancer. ??Please correlate clinically and follow until clear. Additional band like densities both lung bases likely related to atelectasis as above. ??Observation on follow-up suggested. No acute abdominal or pelvic abnormality. Stat prelim report at time of imaging due to dictation down time.. Narrative 06/15/2021 2:06 PM CDT EXAM DESCRIPTION: ?? CT ABDOMEN PELVIS W/ CONTRAST REASON FOR STUDY: ?? Abnormal urinalysis today. ??Hematuria. ??Previous history of right breast cancer in 2014. TECHNIQUE: CT scan of the abdomen and pelvis performed with intravenous and ?? without ??oral contrast using helical scanning technique with dynamic intravenous contrast injection. Reconstructed coronal and sagittal MPR images reviewed. All images stored on PACS. Automated exposure control was used as a dose optimization technique for this examination. CONTRAST TYPE/DOSE: ?? 71 cc Isovue 370 ??injected via ?? right antecubital fossa COMPARISON: ?? None available FINDINGS: LOWER CHEST: ?? Confluent soft tissue density lesion left lower lobe measures 3.9 x 3.0 cm in transverse section on axial image 11 of series 4. ??Air bronchograms extend through this region without deviation. ??This is likely related to focus of pneumonia though a mass lesion is difficult to exclude specially in light of history of breast cancer. Additional band like densities within the anterior aspect of the left lower lobe in the right middle lobe likely related to atelectasis with pneumonic infiltrate not excluded. No pleural effusion or pneumothorax. LIVER: ?? Normal size. ??No identified cystic or solid masses. GALLBLADDER: ?? Normally distended BILE DUCTS: ?? No intrahepatic or extrahepatic [...] or adenopathy. REPRODUCTIVE: ?? No significant abnormality. VASCULATURE: ?? No abdominal aortic aneurysm. MUSCULOSKELETAL: ?? No significant abnormality. OTHER: ?? No other abnormality. THIS IS AN ELECTRONICALLY VERIFIED FINAL REPORT 06/15/2021 2:03 PM - Electronically signed by ??Bhupinder Lopez M.D. RB: CORAZON D: ??06/15/2021 2:03 PM T: ??06/15/2021 2:03 PM Report ID: [id number] Reading Location: ??[id number] Procedure Note Bhupinder Lopez MD - 06/15/2021 EXAM DESCRIPTION: CT ABDOMEN PELVIS W/ CONTRAST REASON FOR STUDY: Abnormal urinalysis today. Hematuria. Previous history of right breast cancer in 2014. TECHNIQUE: CT scan of the abdomen and pelvis performed with intravenous and without oral contrast using helical scanning technique with dynamic intravenous contrast injection. Reconstructed coronal and sagittal MPR images reviewed. All images stored on PACS. Automated exposure control was used as a dose optimization technique for this examination. CONTRAST TYPE/DOSE: 71 cc Isovue 370 injected via right antecubital fossa COMPARISON: None available FINDINGS: LOWER CHEST: Confluent soft tissue density lesion left lower lobe measures 3.9 x 3.0 cm in transverse section on axial image 11 of series 4. Air bronchograms extend through this region without deviation. This is likely related to focus of pneumonia though a mass lesion is difficult to exclude specially in light of history of breast cancer. Additional band like densities within the anterior aspect of the left lower lobe in the right middle lobe likely related to atelectasis with pneumonic infiltrate not excluded. No pleural effusion or pneumothorax. LIVER: Normal size. No identified cystic or solid masses. GALLBLADDER: Normally distended BILE DUCTS: No intrahepatic or extrahepatic ductal [...] mass or adenopathy. REPRODUCTIVE: No significant abnormality. VASCULATURE: No abdominal aortic aneurysm. MUSCULOSKELETAL: No significant abnormality. OTHER: No other abnormality. THIS IS AN ELECTRONICALLY VERIFIED FINAL REPORT 06/15/2021 2:03 PM - Electronically signed by Bhupinder Lopez M.D. RB: CORAZON Report ID: [id number] Reading Location: [id number] IMPRESSION: Left lung base demonstrates 3.9 cm confluent soft tissue density which likely represents a pneumonic infiltrate though malignancy is difficult to exclude in light of history of breast cancer. Please correlate clinically and follow until clear. Additional band like densities both lung bases likely related to atelectasis as above. Observation on follow-up suggested. No acute abdominal or pelvic abnormality. Stat prelim report at time of imaging due to dictation down time.. us Cody Graf MD IMG CT ORDERABLES Final Res ult * US ABDOMEN LIMITED LEVEL 3 THREE ORGAN [id number] (06/15/2021 10:25 AM CDT) Anatomical Region Laterality Modality Abdomen N/A Ultrasound 06/15/2021 11:3 3 AM CDT Impressions 06/15/2021 12:58 PM CDT IMPRESSION: ?? Grossly unremarkable right upper quadrant abdominal ultrasound. ??No definite sonographic evidence of cholecystitis or cholelithiasis. Narrative 06/15/2021 12:58 PM CDT EXAM DESCRIPTION: ?? US ABDOMEN LIMITED LEVEL 3 THREE ORGAN REASON FOR STUDY: ?? Right upper quadrant abdominal pain, nausea, vomiting and fever . ??Fever, right upper quadrant pain radiating to back for 3 weeks. TECHNIQUE: Ultrasound of the right upper quadrant of the abdomen was performed with grayscale and color doppler. COMPARISON: ?? None FINDINGS: PANCREAS: ?? Visualized portions of the pancreas are within normal limits. Portions of the pancreatic body and tail are obscured due to bowel gas. LIVER: ?? The liver is grossly normal in echogenicity. ??There is no definite sonographic evidence of focal hepatic lesion. ??There is documentation of hepatopetal flow in the portal vein. GALLBLADDER: ?? There is no definite sonographic evidence of cholelithiasis. ??The gallbladder wall measures 0.2 cm in thickness. ?? There is no definite of pericholecystic fluid. ?? BILIARY: ?? There is no intrahepatic or extrahepatic biliary ductal dilatation. ??Common bile duct measures ?? 0.5 cm ??in diameter. RIGHT KIDNEY: ?? Normal size. Normal echogenicity. No solid mass or cyst. ??No hydronephrosis. ??Measures ?? 10.8 x 4.7 x 3.7 ??cm. OTHER: ?? No other significant findings. THIS IS AN ELECTRONICALLY VERIFIED FINAL REPORT 06/15/2021 11:33 AM - Electronically signed by ??Nasima Lopez D.O. PS: PS D: ??06/15/2021 11:33 AM T: ??06/15/2021 11:33 AM Report ID: [id number] Reading Location: ??[id number] Procedure Note Nasima Lopez DO - 06/15/2021 EXAM DESCRIPTION: US ABDOMEN LIMITED LEVEL 3 THREE ORGAN REASON FOR STUDY: Right upper quadrant abdominal pain, nausea, vomiting and fever . Fever, right upper quadrant pain radiating to back for 3 weeks. TECHNIQUE: Ultrasound of the right upper quadrant of the abdomen was performed with grayscale and color doppler. COMPARISON: None FINDINGS: PANCREAS: Visualized portions of the pancreas are within normal limits. Portions of the pancreatic body and tail are obscured due to bowel gas. LIVER: The liver is grossly normal in echogenicity. There is no definite sonographic evidence of focal hepatic lesion. There is documentation of hepatopetal flow in the portal vein. GALLBLADDER: There is no definite sonographic evidence of cholelithiasis. The gallbladder wall measures 0.2 cm in thickness. There is no definite of pericholecystic fluid. BILIARY: There is no intrahepatic or extrahepatic biliary ductal dilatation. Common bile duct measures 0.5 cm in diameter. RIGHT KIDNEY: Normal size. Normal echogenicity. No solid mass or cyst. No hydronephrosis. Measures 10.8 x 4.7 x 3.7 cm. OTHER: No other significant findings. THIS IS AN ELECTRONICALLY VERIFIED FINAL REPORT 06/15/2021 11:33 AM - Electronically signed by Nasima Lopez D.O. PS: PS Report ID: [id number] Reading Location: [id number] IMPRESSION: Grossly unremarkable right upper quadrant abdominal ultrasound. No definite sonographic evidence of cholecystitis or cholelithiasis. us Cody Graf MD IMG US ORDERABLES Final Res ult * Culture, Urine (06/15/2021 9:05 AM CDT) CULTURE RESULTS MIXED GROWTH OF 3 OR MORE ORGANISMS, PROBABLE COLLECTION CONTAMINATION, SUGGEST REPEAT URINE CULTURE. 06/17/2021 6:54 AM CDT [facility] Urine URINE SPECIMEN COLLECTION, CLEAN CATCH / Unknown Non-Phlebotomy Collection / Unknown 06/15/2021 9:05 AM CDT 06/15/2021 9:39 AM CDT us Coyd Graf MD MICROBIOLOGY - GENERAL [facility] Final Result [facility] [address] [place] [address], [place] * Lavender Top Tube (06/15/2021 9:05 AM CDT) Blood No Phlebotomy Charged / Unknown 06/15/2021 9:05 AM CDT 06/15/2021 9:44 AM CDT Cody Graf MD HEMATOLOGY ORDERABLES Final Result Performing Organization Address [facility] Co de Phone Number [facility] [place] [address] * Gold Top Tube (06/15/2021 9:05 AM CDT) Blood No Phlebotomy Charged / Unknown 06/15/2021 9:05 AM CDT 06/15/2021 9:44 AM CDT Cody Graf MD CHEMISTRY ORDERABLES Final Result Performing Organization Address [facility] de Phone Number [facility] [place] [address] * Blue Top Tube (06/15/2021 9:05 AM CDT) Blood No Phlebotomy Charged / Unknown 06/15/2021 9:05 AM CDT 06/15/2021 9:44 AM CDT Cody Graf MD HEMATOLOGY ORDERABLES Final Result Performing Organization Address [facility] de Phone Number [facility] [address] [place] [address] * (ABNORMAL) CBC with Auto Differential (06/15/2021 9:05 AM CDT) WBC 12.12(H) 4.00 - 12.00 10(3)/mcL 06/15/2021 10:04 AM CDT [facility] RBC 4.58 3.80 - 5.30 10(6)/mcL 06/15/2021 10:04 AM CDT [facility] HEMOGLOBIN (HGB) 13.9 12.0 - 15.8 g/dL 06/15/2021 10:04 AM CDT [facility] HEMATOCRIT (HCT) 42.0 36.0 - 47.0 % 06/15/2021 10:04 AM CDT [facility] MCV 91.7 82.0 - 96.0 fL 06/15/2021 10:04 AM CDT [facility] MCH 30.3 26.0 - 34.0 pg 06/15/2021 10:04 AM CDT [facility] MCHC 33.1 31.0 - 36.0 g/dL 06/15/2021 10:04 AM CDT [facility] PLATELET COUNT 331 140 - 440 10(3)/[facility] 06/15/2021 10:04 AM CDT [facility] RDW 12.5 11.8 - 15.5 % 06/15/2021 10:04 AM CDT [facility] MPV 9.8 9.7 - 12.4 fL 06/15/2021 10:04 AM CDT [facility] NEUTROPHILS 82.3(H) 47.0 - 73.0 % 06/15/2021 10:04 AM CDT [facility] LYMPHOCYTES 9.5(L) 18.0 - 42.0 % 06/15/2021 10:04 AM CDT [facility] MONOCYTES 7.2 4.0 - 12.0 % 06/15/2021 10:04 AM CDT [facility] EOSINOPHILS 0.7 0.0 - 5.0 % 06/15/2021 10:04 AM CDT [facility] BASOPHILS 0.3 0.0 - 1.0 % 06/15/2021 10:04 AM CDT [facility] ABSOLUTE NEUTROPHILS 9.97(H) 1.60 - 7.70 10(3)/mcL 06/15/2021 10:04 AM CDT [facility] ABSOLUTE LYMPHOCYTES 1.15(L) 1.30 - 3.20 10(3)/mcL 06/15/2021 10:04 AM CDT [facility] ABSOLUTE MONOCYTES 0.87 0.20 - 1.00 10(3)/mcL 06/15/2021 10:04 AM CDT [facility] ABSOLUTE EOSINOPHIL 0.09 0.00 - 0.40 10(3)/mcL 06/15/2021 10:04 AM CDT [facility] ABSOLUTE BASOPHILS 0.04 0.00 - 0.10 10(3)/mcL 06/15/2021 10:04 AM CDT [facility] NRBC PER 100 WBC 0 06/16/19 10:04 AM CDT [facility] Blood Venipuncture / Unknown 06/15/2021 9:05 AM CDT 06/15/2021 10:02 AM CDT us Cody Graf MD HEMATOLOGY ORDERABLES Final Result [facility] [address] [place] [address] * (ABNORMAL) URINALYSIS REFLEX IF INDICATED BY ABNORMAL RESULTS (06/15/2021 9:05 AM CDT) SPECIFIC GRAVITY 1.010 1.003 - 1.030 06/15/2021 10:00 AM CDT [facility] URINE PH 7.0 5.0 - 9.0 06/15/2021 10:00 AM CDT [facility] WBC ESTERASE 25 /uL(A) Negative 06/15/2021 10:00 AM CDT [facility] NITRITE Negative Negative 06/15/2021 10:00 AM CDT [facility] PROTEIN, RANDOM URINE 30 mg/dL(A) Negative 06/15/2021 10:00 AM CDT [facility] URINE GLUCOSE, QUAL Negative Negative 06/15/2021 10:00 AM CDT [facility] URINE KETONES Negative Negative 06/15/2021 10:00 AM CDT [facility] UROBILINOGEN 1 mg/dL(A) Normal mg/dL 06/15/2021 10:00 AM CDT [facility] URINE BLOOD 150 /uL(A) Negative matthew/ul 06/15/2021 10:00 AM CDT [facility] URINALYSIS COLOR Yellow 06/16/19 10:00 AM CDT [facility] URINALYSIS CLARITY Clear 06/15/2021 10:00 AM CDT [facility] WBC (Urine) 0-5 Negative, 0-5 /hpf 06/15/2021 10:00 AM CDT [facility] URINE RBC'S 3-5(A) Negative, 0-2 /hpf 06/15/2021 10:00 AM CDT [facility] EPITHELIAL CELLS Occasional /lpf 06/16/19 10:00 AM CDT [facility] BACTERIA, URINE Few(A) Negative /hpf 06/15/2021 10:00 AM CDT [facility] Urine URINE SPECIMEN COLLECTION, CLEAN CATCH / Unknown Non-Phlebotomy Collection / Unknown 06/15/2021 9:05 AM CDT 06/15/2021 9:39 AM CDT us Cody Graf MD URINE ORDERABLES Final Resu lt [facility] [address] [place] [address] * (ABNORMAL) CMP (Comprehensive Metabolic Panel) (06/15/2021 9:05 AM CDT) SODIUM 135(L) 136 - 144 mmol/L 06/15/2021 10:12 AM CDT [facility] POTASSIUM 3.9 3.5 - 5.1 mmol/L 06/15/2021 10:12 AM CDT [facility] CHLORIDE 97(L) 100 - 110 mmol/L 06/15/2021 10:12 AM CDT [facility] CO2, VENOUS 25 22 - 32 mmol/L 06/15/2021 10:12 AM CDT [facility] ANION GAP 16.9 8.0 - 20.0 mmol/L 06/15/2021 10:12 AM T [facility] GLUCOSE 105(H) 70 - 99 mg/dL 06/15/2021 10:12 AM CDT [facility] BUN 10 6 - 20 mg/dL 06/15/2021 10:12 AM [facility] CREATININE, BLOOD 0.73 0.60 - 1.10 mg/dL 06/15/2021 10:12 AM CDT [facility] BUN/CREATININE RATIO 14 12 - 20 ratio 06/15/2021 10:12 AM [facility] TOTAL PROTEIN 7.9 6.0 - 8.3 g/dL 06/15/2021 10:12 AM [facility] ALBUMIN 4.5 3.5 - 5.2 g/dL 06/15/2021 10:12 AM [facility] Comment: The colormetric methods used for the determination of Albumin may lead to falsely elevated test results in patients suffering from renal failure or insufficiency due to interference with other proteins. A/G RATIO 1.3 1.0 - 2.0 06/15/2021 10:12 AM [facility] CALCIUM 9.5 8.9 - 10.3 mg/dL 06/15/2021 10:12 AM [facility] T BILI 0.8 <=1.2 mg/dL 06/15/2021 10:12 AM CDT [facility] SGOT (AST) 19 <=32 U/L 06/15/2021 10:12 AM [facility] SGPT (ALT) 16 <=41 U/L 06/15/2021 10:12 AM [facility] ALKALINE PHOSPHATASE 102 35 - 105 U/L 06/15/2021 10:12 AM T [facility] GFR, EST. NONAFRICAN >60 >=60 06/15/2021 10:12 AM CDT [facility] GFR, EST. >60 >=60 022 10:12 AM CDT [facility] Comment: Creatinine Clearance is the preferred criteria for selecting drug dose adjustments in renally impaired patients. ??The GFR is provided as additional pertinent clinical information. GFR is reported in mL/min/1.73 sq m. Blood Venipuncture / Unknown 06/15/2021 9:05 AM CDT 06/15/2021 10:00 AM CDT Cody Graf MD CHEMISTRY ORDERABLES Final Result Performing Organization Address City/[facility]/ZIP Co de Phone Number [facility] [address] [place] [address] * Lipase (06/15/2021 9:05 AM CDT) LIPASE 32.2 13 - 60 U/L 06/15/2021 10:12 AM CDT [facility] Blood Venipuncture / Unknown 06/15/2021 9:05 AM CDT 06/15/2021 10:00 AM CDT Cody Graf MD CHEMISTRY ORDERABLES Final Result Performing Organization Address [facility] Co de Phone Number [facility] [address] [place] [address] documented in this encounter Visit Diagnoses Diagnosis Right upper quadrant abdominal pain- Primary Abdominal pain, right upper quadrant Fever Fever, unspecified Nausea and vomiting Nausea with vomiting CAP (community acquired pneumonia) Pneumonia, organism unspecified documented in this encounter Administered Medications Inactive Administered Medications - up to 3 most recent administrations Medication Order MAR Action Action Date Dose Rate Site 0.9 % sodium chloride solution at 500 mL/hr, Intravenous, ONCE, 1 dose, On Fri06/15/21 at 0930 New Bag 06/15/2021 9:22 AM CDT 1,000 mL 500 mL/hr iopamidol (ISOVUE-370) 76 % injection 71 mL 71 mL, Intravenous, ONCE, 1 dose, On Fri06/15/21 at 1300 Given 06/15/2021 12:34 PM CDT 71 mL ketorolac (TORADOL) injection 30 mg 30 mg, Intravenous, ONCE, 1 dose, On Fri06/15/21 at 0930 Given 06/15/2021 9:22 AM CDT 30 mg ondansetron (ZOFRAN) injection 4 mg 4 mg, Intravenous, ONCE, 1 dose, On Fri06/15/21 at 0930 Given 06/15/2021 9:22 AM CDT 4 mg documented in this encounter Active and Recently Administered Medications Times are shown in CDT. Scheduled Medication Order 06/13/2021 06/14/2021 06/15/2021 0.9 % sodium chloride solution (COMPLETED) at 500 mL/hr, Intravenous, ONCE, 1 dose, On Fri06/15/21 at 0930 0922 (New Bag - Prov ider: Caron Moser RN)1000 (Stopped - Provider: Caron Moser RN) iopamidol (ISOVUE-370) 76 % injection 71 mL (COMPLETED) 71 mL, Intravenous, ONCE, 1 dose, On Fri06/15/21 at 1300 1234 (Given - Provid er: Sharron Torres, RT(R) (CT)) ketorolac (TORADOL) injection 30 mg (COMPLETED) 30 mg, Intravenous, ONCE, 1 dose, On Fri06/15/21 at 0930 0922 (Given - Provid er: Caron Moser RN) ondansetron (ZOFRAN) injection 4 mg (COMPLETED) 4 mg, Intravenous, ONCE, 1 dose, On Fri06/15/21 at 0930 0922 (Given - Provid er: Caron Moser RN) documented in this encounter Additional Health Concerns Assessment Noted Time PHQ-9 Depression Total Score: 0 04/01/19 20 9:00 AM [employer] documented as of this encounter Care Teams Airfield Engineer Officer Relationship Specialty Start Date End Date Ronit Parish MD #[address] [address] PCP - General Family Medicine 03/01/15 04/15/22 Laurence Luque MD [id number] [address] Consulting Physician General Surgery 02/01/15 Clemencia Bennett MD [address] [place] [address] Family Medicine 01/30/18 documented as of this encounter
--- OUTSIDE RECORDS SUMMARY | 2024-03-15 01:50 | XMS_ITS | Encounter Summary ---
Author Organization [facility] Address [address] [place] [address] Phone Care Team Providers Care [employer] Name Role Phone Laurence Luque MD Unavailable + [phone] Clemencia Bennett MD Unavailable [phone] Chica Saldana MD Primary Care Provider + [phone] Encounter Details Date Type Department Care Team (Late st Contact Info) Description 04/16/2022 3:00 PM STUDENT TEACHING COORDINATOR Lab [facility] - Primary Care - [address] [place] [address] Lab, [facility] adult exam Discharge Disposition: Discharged to home or Selfcare [...] Coronavirus/COVID-19? No / Unsure 04/16/2022 2:03 PM STUDENT TEACHING COORDINATOR documented as of this encounter Progress Notes * Alexia Huerta - 04/16/2022 3:00 PM CST Angie presents for lab draw per order of Dr. Saldana dated 04/16/22. Specimen collected from right antecubital without incident. sah ENT TEACHING COORDINATOR documented in this encounter Plan of Treatment Upcoming Encounters Date Type Department Care Team (Late st Contact Info) Description 03/23/2024 1:00 PM STUDENT TEACHING COORDINATOR Appointment [facility] [address] [place] [address] Jose R Pearson MD [address] [place] [address] Discharge Disposition: Discharged to home or Selfcare 03/23/2024 2:30 PM STUDENT TEACHING COORDINATOR Appointment [facility] [address] [place] [address] Jose R Pearson MD [address] [place] [address] Discharge Disposition: Discharged to home or Selfcare 03/30/2024 10:00 AM STUDENT TEACHING COORDINATOR Office Visit [facility] [address] [place] [address] Jose R Pearson MD [address] [place] [address] Discharge Disposition: Discharged to home or Selfcare 03/30/2024 10:30 AM STUDENT TEACHING COORDINATOR Lab [facility] [address] [place] [address] Discharge Disposition: Discharged to home or Selfcare 03/31/2024 1:00 PM STUDENT TEACHING COORDINATOR Clinical Support [facility] [address] [place] [address] Jose R Pearson MD [address] [place] [address] Discharge Disposition: Discharged to home or Selfcare 04/28/2024 1:30 PM STUDENT TEACHING COORDINATOR Clinical Support [facility] [address] [place] [address] Discharge Disposition: Discharged to home or Selfcare documented as of this encounter Goals Goal Patient Goal Type Associated Problems Recent Progress Patient-Stated? Author Exercise 3x per week (30 min per time) Exercise No Chica Saldana MD documented as of this encounter Procedures Procedure Name Priority Date/Time Associated Diagnosis Comments THYROID SCREEN WITH REFLEX Routine 04/16/2022 2:54 PM STUDENT TEACHING COORDINATOR Well adult exam THYROID SCREEN WITH REFLEX Routine 04/16/2022 2:54 PM STUDENT TEACHING COORDINATOR Well adult exam HEMOGLOBIN A1C W/ ESTIMATED GLUCOSE Today 04/16/2022 2:54 PM STUDENT TEACHING COORDINATOR Well adult exam CBC WITH AUTO DIFFERENTIAL Routine 04/16/2022 2:54 PM STUDENT TEACHING COORDINATOR Well adult exam LIPID PANEL Routine 04/16/2022 2:54 PM STUDENT TEACHING COORDINATOR Well adult exam CMP (COMPREHENSIVE METABOLIC PANEL) Routine 04/16/2022 2:54 PM STUDENT TEACHING COORDINATOR Well adult exam COMPLETE BLOOD COUNT (CBC) WITH DIFF Routine 04/16/2022 2:54 PM STUDENT TEACHING COORDINATOR Well adult exam documented in this encounter Results * THYROID SCREEN WITH REFLEX (04/16/2022 2:54 PM STUDENT TEACHING COORDINATOR) TSH 2.550 0.270 - 4.200 mIU/L 04/17/2022 9:01 AM STUDENT TEACHING COORDINATOR [facility] Blood Venipuncture / Unknown 04/16/2022 2:54 PM STUDENT TEACHING COORDINATOR 04/16/2022 2:54 PM STUDENT TEACHING COORDINATOR Chica Saldana MD CHEMISTRY ORDERABLES Final R esult [facility] [address] [place] [address] * (ABNORMAL) CBC WITH AUTO DIFFERENTIAL (04/16/2022 2:54 PM STUDENT TEACHING COORDINATOR) WBC 8.65 4.00 - 12.00 10(3)/mcL 04/17/2022 8:50 AM STUDENT TEACHING COORDINATOR [facility] RBC 4.63 3.80 - 5.30 10(6)/[facility] 04/17/2022 8:50 AM STUDENT TEACHING COORDINATOR [facility] HEMOGLOBIN (HGB) 14.6 12.0 - 15.8 g/dL 04/17/2022 8:50 AM STUDENT TEACHING COORDINATOR [facility] HEMATOCRIT (HCT) 43.7 36.0 - 47.0 % 04/17/2022 8:50 AM STUDENT TEACHING COORDINATOR [facility] MCV 94.4 82.0 - 96.0 fL 04/17/2022 8:50 AM STUDENT TEACHING COORDINATOR [facility] MCH 31.5 26.0 - 34.0 pg 04/17/2022 8:50 AM STUDENT TEACHING COORDINATOR [facility] MCHC 33.4 31.0 - 36.0 g/dL 04/17/2022 8:50 AM STUDENT TEACHING COORDINATOR [facility] PLATELET COUNT 299 140 - 440 10(3)/mcL 04/17/2022 8:50 AM STUDENT TEACHING COORDINATOR [facility] RDW 12.1 11.8 - 15.5 % 04/17/2022 8:50 AM STUDENT TEACHING COORDINATOR [facility] MPV 9.8 9.7 - 12.4 fL 04/17/2022 8:50 AM [facility] NEUTROPHILS 53.1 47.0 - 73.0 % 04/17/2022 8:50 AM STUDENT TEACHING COORDINATOR [facility] LYMPHOCYTES 37.3 18.0 - 42.0 % 04/17/2022 8:50 AM STUDENT TEACHING COORDINATOR [facility] MONOCYTES 6.8 4.0 - 12.0 % 04/17/2022 8:50 AM [facility] EOSINOPHILS 2.2 0.0 - 5.0 % 04/17/2022 8:50 AM [facility] BASOPHILS 0.6 0.0 - 1.0 % 04/17/2022 8:50 AM STUDENT TEACHING COORDINATOR [facility] ABSOLUTE NEUTROPHILS 4.59 1.60 - 7.70 10(3)/[facility] 04/17/2022 8:50 AM [facility] ABSOLUTE LYMPHOCYTES 3.23(H) 1.30 - 3.20 10(3)/[facility] 04/17/2022 8:50 AM [facility] ABSOLUTE MONOCYTES 0.59 0.20 - 1.00 10(3)/[facility] 04/17/2022 8:50 AM [facility] ABSOLUTE EOSINOPHIL 0.19 0.00 - 0.40 10(3)/[facility] 04/17/2022 8:50 AM [facility] ABSOLUTE BASOPHILS 0.05 0.00 - 0.10 10(3)/[facility] 04/17/2022 8:50 AM [facility] NRBC PER 100 WBC 0 04/17/19 8:50 AM [facility] Blood Venipuncture / Unknown 04/16/2022 2:54 PM STUDENT TEACHING COORDINATOR 04/16/2022 2:54 PM [facility] us Chica Saldana MD HEMATOLOGY ORDERABLES Final Result [facility] [address] [place] [address] * (ABNORMAL) LIPID PANEL (04/16/2022 2:54 PM STUDENT TEACHING COORDINATOR) CHOLESTEROL 227(H) <=200 mg/dL 04/17/2022 8:53 AM STUDENT TEACHING COORDINATOR [facility] TRIGLYCERIDES 139 <150 mg/dL 04/17/2022 8:53 AM STUDENT TEACHING COORDINATOR [facility] HDL CHOLESTEROL 113.0 >40 mg/dL 8:53 AM STUDENT TEACHING COORDINATOR [facility] LDL 86 5 - 130 mg/dL 04/17/2022 8:53 AM STUDENT TEACHING COORDINATOR [facility] VLDL 28 5 - 55 mg/dL 04/17/2022 8:53 AM [facility] CHOL/HDL RATIO 2.0 0.0 - 4.4 04/17/2022 8:53 AM STUDENT TEACHING COORDINATOR [facility] NON-HDL CHOLESTEROL 114 <130 mg/dL 04/17/2022 8:53 AM STUDENT TEACHING COORDINATOR [facility] IS THE PATIENT REQUIRED TO BE FASTING? No 04/17/2022 8:53 AM STUDENT TEACHING COORDINATOR [facility] Blood Venipuncture / Unknown 04/16/2022 2:54 PM STUDENT TEACHING COORDINATOR 04/16/2022 2:54 PM STUDENT TEACHING COORDINATOR Chica Saldana MD CHEMISTRY ORDERABLES Final R esult [facility] [address] [place] [address] * HEMOGLOBIN A1C W/ ESTIMATED GLUCOSE (04/16/2022 2:54 PM STUDENT TEACHING COORDINATOR) HGB-A1C 5.5 4.0 - 6.0 % 04/17/2022 8:55 AM STUDENT TEACHING COORDINATOR [facility] Est Average Glucose 111.2 mg/dL 04/17/2022 8:55 AM STUDENT TEACHING COORDINATOR [facility] Blood Venipuncture / Unknown 04/16/2022 2:54 PM STUDENT TEACHING COORDINATOR 04/16/2022 2:54 PM STUDENT TEACHING COORDINATOR Narrative [facility] - 04/17/2022 8:55 AM STUDENT TEACHING COORDINATOR HEMOGLOBIN A1C: DIABETIC PATIENTS: WELL-CONTROLLED: ?? 6.2 - 7.0 INTERMEDIATE WELL-CONTROLLED: ??7.0 - 9.0 POORLY-CONTROLLED: ??>9.0 us Chica Saldana MD CHEMISTRY ORDERABLES Final R esult [facility] [address] [facility] [place] [facility] [place] [address] * (ABNORMAL) CMP (COMPREHENSIVE METABOLIC PANEL) (04/16/2022 2:54 PM STUDENT TEACHING COORDINATOR) SODIUM 136 136 - 144 mmol/L 04/17/2022 8:53 AM [facility] POTASSIUM 4.5 3.5 - 5.1 mmol/L 04/17/2022 8:53 AM [facility] CHLORIDE 98(L) 100 - 110 mmol/L 04/17/2022 8:53 AM [facility] CO2, VENOUS 28 22 - 32 mmol/L 04/17/2022 8:53 AM [facility] ANION GAP 14.5 8.0 - 20.0 mmol/L 04/17/2022 8:53 AM [facility] GLUCOSE 108(H) 70 - 99 mg/dL 04/17/2022 8:53 AM [facility] BUN 22(H) 6 - 20 mg/dL 04/17/2022 8:53 AM [facility] CREATININE, BLOOD 0.66 0.60 - 1.10 mg/dL 04/17/2022 8:53 AM [facility] BUN/CREATININE RATIO 33(H) 12 - 20 ratio 04/17/2022 8:53 AM [facility] TOTAL PROTEIN 7.7 6.0 - 8.3 g/dL 04/17/2022 8:53 AM [facility] ALBUMIN 4.7 3.5 - 5.2 g/dL 04/17/2022 8:53 AM [facility] Comment: The colormetric methods used for the determination of Albumin may lead to falsely elevated test results in patients suffering from renal failure or insufficiency due to interference with other proteins. A/G RATIO 1.6 1.0 - 2.0 04/17/2022 8:53 AM STUDENT TEACHING COORDINATOR [facility] CALCIUM 10.3 8.9 - 10.3 mg/dL 04/17/2022 8:53 AM STUDENT TEACHING COORDINATOR [facility] T BILI 0.5 <=1.2 mg/dL 04/17/2022 8:53 AM STUDENT TEACHING COORDINATOR [facility] SGOT (AST) 27 <=32 U/L 04/17/2022 8:53 AM STUDENT TEACHING COORDINATOR [facility] SGPT (ALT) 17 <=41 U/L 04/17/2022 8:53 AM STUDENT TEACHING COORDINATOR [facility] ALKALINE PHOSPHATASE 104 35 - 105 U/L 04/17/2022 8:53 AM [facility] IS THE PATIENT REQUIRED TO BE FASTING? No 04/17/2022 8:53 AM STUDENT TEACHING COORDINATOR [facility] GFR, ESTIMATED >60 >=60 04/17/2022 8:53 AM [facility] Comment: Creatinine Clearance is the preferred criteria for selecting drug dose adjustments in renally impaired patients. ??The GFR is provided as additional pertinent clinical information. GFR is reported in mL/min/1.73 sq m. Calculation based on the Chronic Kidney Disease Epidemiology Collaboration (CKD- EPI) equation refit without adjustment for race. GFR, EST. >60 >=60 023 8:53 AM STUDENT TEACHING COORDINATOR [facility] GFR, EST. NONAFRICAN >60 >=60 04/17/2022 8:53 AM [facility] Blood Venipuncture / Unknown 04/16/2022 2:54 PM STUDENT TEACHING COORDINATOR 04/16/2022 2:54 PM STUDENT TEACHING COORDINATOR us Chica Saldana MD CHEMISTRY ORDERABLES Final R esult [facility] [address] [place] [address] documented in this encounter Visit Diagnoses Diagnosis Well adult exam Routine general medical examination at a health care facility documented in this encounter Additional Health Concerns Assessment Noted Time PHQ-9 Depression Total Score: 0 04/01/19 20 9:00 AM STUDENT TEACHING COORDINATOR documented as of this encounter Care Teams [employer] Relationship Specialty Start Date End Date Chica Saldana MD [address] [place] [address] PCP - General Family Medicine 04/16/22 05/01/23 Laurence Luque MD [address] [id number] Consulting Physician General Surgery 02/01/15 Clemencia Bennett MD [facility] [place] [address] Family Medicine 01/30/18 documented as of this encounter
--- OUTSIDE RECORDS SUMMARY | 2024-03-15 01:50 | XMS_ITS | Encounter Summary ---
Author Organization [facility] Address [address] [place] [address] Phone Care Team Providers Care Window Installation Subcontractor Name Role Phone Laurence Luque MD Unavailable + [phone] Ronit Parish MD Primary Care Provider + [phone] Clemencia Bennett MD Unavailable [phone] Reason for Visit * Reason Onset Date Comments Results 05/30/2021 Labs Encounter Details Date Type Department Care Team (Late st Contact Info) Description 05/30/2021 Telephone [facility] - Primary Care - [place] [address] [place] [address] Ronit Parish MD [address] [place] [address] Results (Labs ) Social History [...] encounter Miscellaneous Notes * Telephone Encounter - Sowmya Sanford APRN, CNP - 05/31/2021 10:07 AM CDT done * Addendum Note - Sowmya Sanford APRN, CNP - 05/31/2021 10:07 AM CDT Addended by: SOWMYA SANFORD on: 05/31/2021 10:07 AM Modules accepted: Orders * Telephone Encounter - Juana Gonzalez RN - 05/31/2021 9:57 AM CDT Patient calling back and notified of lab results and providers comments below. Patient voices understanding. Message from Sowmya Sanford APRN, CNP sent at 05/30/2021 3:54 PM CDT ----- Labs unremarkable. No sign of bacterial infection. Suspect viral in nature. Continue with symptomatic/supportive care. If no better over weekend, let us know. Patient states she thought the provider was going to send in some cough medication to the pharmacy since she is having difficulty sleeping. States she discussed this at office visit. Pharmacy verified. Please contact patient back @ [phone] with provider recommendations. * Telephone Encounter - Rebeca Francis RN - 05/30/2021 3:57 PM CDT Attempted to call patient with results, no answer at this time. Left message to call back. * Telephone Encounter - Rebeca Francis RN - 05/30/2021 3:57 PM CDT ----- Message from Sowmya Sanford APRN, CNP sent at 05/30/2021 3:54 PM CDT ----- Labs unremarkable. No sign of bacterial infection. Suspect viral in nature. Continue with symptomatic/supportive care. If no better over weekend, let us know. documented in this encounter Plan of Treatment Upcoming Encounters Date Type Department Care Team (Late st Contact Info) Description 03/23/2024 1:00 PM ARTIFICIAL LIMB FITTER Appointment [facility] Cardiology Services [address] [place] [address] Jose R Pearson MD [address] [place] [address] Discharge Disposition: Discharged to home or Selfcare 03/23/2024 2:30 PM ARTIFICIAL LIMB FITTER Appointment [facility] [address] [place] [address] Jose R Pearson MD [address] [place] [address] Discharge Disposition: Discharged to home or Selfcare 03/30/2024 10:00 AM ARTIFICIAL LIMB FITTER Office Visit [facility] Oncology Services [address] [place] [address] Jose R Pearson MD [address] [place] [address] Discharge Disposition: Discharged to home or Selfcare 03/30/2024 10:30 AM ARTIFICIAL LIMB FITTER Lab [facility] Oncology Services [address] [place] [address] Discharge Disposition: Discharged to home or Selfcare 03/31/2024 1:00 PM ARTIFICIAL LIMB FITTER Clinical Support [facility] Oncology Services [address] [place] [address] Jose R Pearson MD [address] [place] [address] Discharge Disposition: Discharged to home or Selfcare 04/28/2024 1:30 PM ARTIFICIAL LIMB FITTER Clinical Support [facility] Oncology Services [address] [place] [address] Discharge Disposition: Discharged to home or Selfcare documented as of this encounter Visit Diagnoses Not on filedocumented in this encounter Additional Health Concerns Assessment Noted Time PHQ-9 Depression Total Score: 0 04/01/19 20 9:00 AM 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
--- OUTSIDE RECORDS SUMMARY | 2024-03-15 01:50 | XMS_ITS | Encounter Summary ---
Author Organization [facility] Address [address] [place] [address] Phone Care Team Providers Care Graphic Illustrator Name Role Phone Laurence Luque MD Unavailable [phone] Clemencia Bennett MD Unavailable [phone] Iveth Guzman MD Primary Care Provider [phone] Reason for Referral * Radiology Services (Routine) - Closed Specialty Diagnoses / Procedures Referred By Contac t Referred To Contact Radiology Diagnoses History of breast cancer Procedures US GUIDED LYMPH NODE BIOPSY-RT Iveth Guzman MD [address] [place] [address] Phone: tel: fax: Referral ID Status Reason Start Date Expiration Date Visits Re quested Visits Authorized [id number] Closed 08/19/2023 1 1 * Radiology Services (Routine) - Closed Specialty Diagnoses / Procedures Referred By Contezekiel t Referred To Contact Radiology Diagnoses History of breast cancer Procedures FERNANDA US GUIDANCE AND CORE BREAST BIOPSY RIGHT Iveth Guzman MD [address] [place] [address] Phone: tel: fax: Referral ID Status Reason Start Date Expiration Date Visits Re quested Visits Authorized [id number] Closed 08/19/2023 1 1 Encounter Details Date Type Department Care Team (Latest Contact Info) Description 08/19/2023 Transcribe Orders [facility] Mammography [address] [place] [address] Iveth Guzman MD [address] [facility] [place] [address] History of breast cancer (Primary Dx) Social History Tobacco Use Types [...] st Contact Info) Description 03/23/2024 1:00 PM CEMENT WORKER Appointment [facility] Cardiology Services [address] [place] [address] Jose R Pearson MD [address] [place] [address] Discharge Disposition: Discharged to home or Selfcare 03/23/2024 2:30 PM CEMENT WORKER Appointment [facility] [address] [place] [address] Jose R Pearson MD [address] [place] [address] Discharge Disposition: Discharged to home or Selfcare 03/30/2024 10:00 AM CEMENT WORKER Office Visit [facility] Oncology Services [address] [place] [address] Jose R Pearson MD [address] [place] [address] Discharge Disposition: Discharged to home or Selfcare 03/30/2024 10:30 AM CEMENT WORKER Lab [facility] Oncology Services [address] [place] [address] Discharge Disposition: Discharged to home or Selfcare 03/31/2024 1:00 PM CEMENT WORKER Clinical Support [facility] Oncology Services [address] [place] [address] Jose R Pearson MD [address] [place] [address] Discharge Disposition: Discharged to home or Selfcare 04/28/2024 1:30 PM CEMENT WORKER Clinical Support [facility] Oncology Services [address] [place] [address] Discharge Disposition: Discharged to home or Selfcare documented as of this encounter Goals Goal Patient Goal Type Associated Problems Recent Progress Patient-Stated? Author Exercise 3x per week (30 min per time) Exercise No Chica Saldana MD documented as of this encounter Results * US GUIDED LYMPH NODE BIOPSY-RT (08/20/2023 10:40 AM CDT) Anatomical Region Laterality Modality BODY N/A Ultrasound 08/20/2023 10:5 4 AM CDT Addenda [...] DESCRIPTION: ?? US GUIDED LYMPH NODE BIOPSY-RT; [facility] US GUIDANCE AND CORE BREAST BIOPSY RIGHT [...] AM T: ??08/20/2023 10:54 AM Report ID: [id number] Reading Location: ??[id number] THIS IS AN ELECTRONICALLY VERIFIED FINAL REPORT 08/26/2023 9:12 AM ??Addendum Electronically signed by Jony Harding M.D. MZ: MZ D: ??08/26/2023 9:12 AM T: ??08/26/2023 9:12 AM Report ID: [id number] Reading Location: ??[id number] Impressions 08/20/2023 10:57 AM CDT IMPRESSION: Successful ultrasound-guided biopsy of suspicious right chest wall/mastectomy site mass and suspicious right axillary lymph node. ??Pathology is pending. ??An addendum will be issued when pathology results are available.. Narrative 08/20/2023 10:57 AM CDT EXAM DESCRIPTION: ?? US GUIDED LYMPH NODE BIOPSY-RT; [facility] US GUIDANCE AND CORE BREAST BIOPSY RIGHT [...] Electronically signed by ??Jony Harding M.D. MZ: MZ D: ??08/20/2023 10:54 AM T: ??08/20/2023 10:54 AM Report ID: [id number] Reading Location: ??[id number] Procedure Note Jony Harding MD - 08/20/2023 EXAM DESCRIPTION: US GUIDED LYMPH NODE BIOPSY-RT; [facility] US GUIDANCE AND CORE BREAST BIOPSY RIGHT [...] signed by Jony Harding M.D. MZ: MZ Report ID: [id number] Reading Location: [id number] IMPRESSION: Successful ultrasound-guided biopsy of suspicious right chest wall/mastectomy site mass and suspicious right axillary lymph node. Pathology is pending. An addendum will be issued when pathology results are available.. us Iveth Guzamn MD [facility] US ORDERABLES Edited R esult - Final * [facility] US GUIDANCE AND CORE BREAST BIOPSY RIGHT [...] DESCRIPTION: ?? US GUIDED LYMPH NODE BIOPSY-RT; [facility] US GUIDANCE AND CORE BREAST BIOPSY RIGHT [...] AM T: ??08/20/2023 10:54 AM Report ID: [id number] Reading Location: ??[id number] THIS IS AN ELECTRONICALLY VERIFIED FINAL REPORT 08/26/2023 9:12 AM ??Addendum Electronically signed by Jony Harding M.D. MZ: LESVIA D: ??08/26/2023 9:12 AM T: ??08/26/2023 9:12 AM Report ID: [id number] Reading Location: ??[id number] Impressions 08/20/2023 10:57 AM CDT IMPRESSION: Successful ultrasound-guided biopsy of suspicious right chest wall/mastectomy site mass and suspicious right axillary lymph node. ??Pathology is pending. ??An addendum will be issued when pathology results are available.. Narrative 08/20/2023 10:57 AM CDT EXAM DESCRIPTION: ?? US GUIDED LYMPH NODE BIOPSY-RT; [facility] US GUIDANCE AND CORE BREAST BIOPSY [...] AM T: ??08/20/2023 10:54 AM Report ID: [id number] Reading Location: ??[id number] Procedure Note Jony Harding MD - 08/20/2023 EXAM DESCRIPTION: US GUIDED LYMPH NODE BIOPSY-RT; [facility] US GUIDANCE AND CORE BREAST BIOPSY RIGHT [...] Jony Harding M.D. MZ: LESVIA Report ID: [id number] Reading Location: [place] [address] IMPRESSION: Successful ultrasound-guided biopsy of suspicious right chest wall/mastectomy site mass and suspicious right axillary lymph node. Pathology is pending. An addendum will be issued when pathology results are available.. Iveth Guzman MD IMG MAMMO ORDERABLES Edite d Result - Final documented in this encounter Visit Diagnoses Diagnosis History of breast cancer- Primary Personal history of malignant neoplasm of breast History of breast cancer- Primary Personal history of malignant neoplasm of breast History of breast cancer Personal history of malignant neoplasm of breast documented in this encounter Additional Health Concerns Assessment Noted Time PHQ-9 Depression Total Score: 0 04/01/19 20 9:00 AM CEMENT WORKER documented as of this encounter Care Teams Graphic Illustrator Relationship Specialty Start Date End Date Iveth Guzman MD [address] [place] [address] PCP - General Family Medicine 05/02/23 Laurence Luque MD [address] [address] Consulting Physician General Surgery 02/01/15 Clemencia Bennett MD [address] [place] [address] Family Medicine 01/30/18 documented as of this encounter
--- OUTSIDE RECORDS SUMMARY | 2024-03-15 01:50 | XMS_ITS | Encounter Summary ---
Author Organization [facility] Address [address] [place] [address] Phone Care Team Providers Care Car Repairman Name Role Phone Laurence Luque MD Unavailable [phone] Clemencia Bennett MD Unavailable [phone] Chica Saldana MD Primary Care Provider + [phone] Reason for Visit * Reason Comments Medication Refill Encounter Details Date Type Department Care Team (Late st Contact Info) Description 04/19/2023 Refill [facility] - Primary Care - [place] [address] [place] [address] Chica Saldana MD [address] [place] [address] Medication Refill Social History Tobacco [...] Telephone Encounter - Jamie Figueroa RN - 04/21/2023 11:01 AM CST Medication failed the protocol, provider to review and approve the medication order if appropriate. Requested Prescriptions Pending Prescriptions Disp Refills atorvastatin (LIPITOR) 10 MG Tablet [Pharmacy Med Name: Atorvastatin Calcium 10 MG Oral Tablet] 90 Tablet 0 Sig: Take 1 tablet by mouth once daily Hmg CoA Reductase Inhibitors Protocol Failed - 04/19/2023 1:15 PM Failed - Lipid panel in past [...] Range Status 04/16/2022 114 <130 mg/dL Final Failed - CMP in past 12 months SODIUM Date Value Ref Range Status 04/16/2022 136 136 - 144 mmol/L Final POTASSIUM Date Value Ref Range Status 04/16/2022 4.5 3.5 - 5.1 mmol/L Final CHLORIDE Date Value Ref Range Status 04/16/2022 98 (L) 100 - 110 mmol/L Final CO2, VENOUS Date Value Ref Range Status 04/16/2022 28 22 - 32 mmol/L Final ANION GAP Date Value Ref Range Status 04/16/2022 14.5 8.0 - 20.0 mmol/L Final GLUCOSE Date Value Ref Range Status 04/16/2022 108 (H) 70 - 99 mg/dL Final BUN Date Value Ref Range Status 04/16/2022 22 (H) 6 - 20 mg/dL Final CREATININE, BLOOD Date Value Ref Range Status 04/16/2022 0.66 0.60 - 1.10 mg/dL Final BUN/CREATININE RATIO Date Value Ref Range Status 04/16/2022 33 (H) 12 - 20 ratio Final TOTAL PROTEIN Date Value Ref Range Status 04/16/2022 7.7 6.0 - 8.3 g/dL Final ALBUMIN Date Value Ref Range Status 04/16/2022 4.7 3.5 - 5.2 g/dL Final Comment: The colormetric methods used for the determination of Albumin may lead to falsely elevated test results in patients suffering from renal failure or insufficiency due to interference with other proteins. A/G RATIO Date Value Ref Range Status 04/16/2022 1.6 1.0 - 2.0 Final CALCIUM Date Value Ref Range Status 04/16/2022 10.3 8.9 - 10.3 mg/dL Final T BILI Date Value Ref Range Status 04/16/2022 0.5 <=1.2 mg/dL Final SGOT (AST) Date Value Ref Range Status 04/16/2022 27 <=32 U/L Final SGPT (ALT) Date Value Ref Range Status 04/16/2022 17 <=41 U/L Final ALKALINE PHOSPHATASE Date Value Ref Range Status 04/16/2022 104 35 - 105 U/L Final GFR, EST. NONAFRICAN Date Value Ref Range Status 04/16/2022 >60 >=60 Final GFR, EST. Date Value Ref Range Status 04/16/2022 >60 >=60 Final GFR, ESTIMATED Date Value Ref Range Status 04/16/2022 >60 >=60 Final Comment: Creatinine Clearance is the preferred criteria for selecting drug dose adjustments in renally impaired patients. The GFR is provided as additional pertinent clinical information. GFR is reported in mL/min/1.73 sq m. Calculation based on the Chronic Kidney Disease Epidemiology Collaboration (CKD- EPI) equation refitwithout adjustment for race. IS THE PATIENT REQUIRED TO BE FASTING? Date Value Ref Range Status 04/16/2022 No Final Passed - No positive test in the past 12 months or most recent test was negative Passed - Visit with relevant provider in past 12 months or upcoming 90 days Recent Visits Date Type Provider Dept 10/14/22 Office Visit Chica Saldana MD [facility] Showing recent visits within past 365 days and meeting all other requirements Future Appointments Date Type Provider Dept 05/02/23 Appointment Iveth Guzman MD [facility] Showing future appointments within next 90 days and meeting all other requirements Passed - No active on record MOBILE ASSEMBLY SUPERVISOR documented in this encounter Plan of Treatment Upcoming Encounters Date Type Department Care Team (Late st Contact Info) Description 03/23/2024 1:00 PM AUTOMOBILE ASSEMBLY SUPERVISOR Appointment [facility] Cardiology Services [address] [facility] [address] Jose R Pearson MD [address] [place] [address] Discharge Disposition: Discharged to home or Selfcare 03/23/2024 2:30 PM AUTOMOBILE ASSEMBLY SUPERVISOR Appointment [facility] CT [address] [place] [address] Jose R Pearson MD [address] [place] [address] Discharge Disposition: Discharged to home or Selfcare 03/30/2024 10:00 AM AUTOMOBILE ASSEMBLY SUPERVISOR Office Visit [facility] Oncology Services [address] [place] [address] Jose R Pearson MD [address] [place] [address] Discharge Disposition: Discharged to home or Selfcare 03/30/2024 10:30 AM AUTOMOBILE ASSEMBLY SUPERVISOR Lab [facility] Oncology Services [address] [place] [address] Discharge Disposition: Discharged to home or Selfcare 03/31/2024 1:00 PM AUTOMOBILE ASSEMBLY SUPERVISOR Clinical Support [facility] Oncology Services [address] [place] [address] Jose R Pearson MD [address] [place] [address] Discharge Disposition: Discharged to home or Selfcare 04/28/2024 1:30 PM AUTOMOBILE ASSEMBLY SUPERVISOR Clinical Support [facility] Oncology Services [address] [place] [address] Discharge Disposition: Discharged to home or Selfcare [...] Total Score: 0 04/01/19 20 9:00 AM AUTOMOBILE ASSEMBLY SUPERVISOR documented as of this encounter Care Teams Car Repairman Relationship Specialty Start Date End Date Chica Saldana MD [address] [place] [address] PCP - General Family Medicine 04/16/22 05/01/23 Laurence Luque MD [address] [address] Consulting Physician General Surgery 02/01/15 Clemencia Bennett MD [address] [place] [address] Family Medicine 01/30/18 documented as of this encounter
--- OUTSIDE RECORDS SUMMARY | 2024-03-15 01:50 | XMS_ITS | Encounter Summary ---
Author Organization [facility] Address [address] [place] [address] Phone Care Team Providers Care Lifter Name Role Phone Laurence Luque MD Unavailable [phone] Clemencia Bennett MD Unavailable [phone] Iveth Guzman MD Primary Care Provider [phone] Reason for Referral * Radiology Services (Routine) - Closed Specialty Diagnoses / Procedures Referred By Contac t Referred To Contact Radiology Diagnoses History of mastectomy, bilateral Procedures FERNANDA BREAST LIMITED RT Iveth Guzman MD [address] [place] [address] Phone: tel: fax: Referral ID Status Reason Start Date Expiration Date Visits Re quested Visits Authorized [id number] Closed 08/06/2023 1 1 Reason for Visit * Radiology Services (Routine) - Closed Specialty Diagnoses / Procedures Referred By Contezekiel laguna Referred To Contact Radiology Diagnoses History of mastectomy, bilateral Procedures FERNANDA BREAST LIMITED RT Iveth Guzman MD [address] [place] [address] Phone: tel: fax: Referral ID Status Reason Start Date Expiration Date Visits Re quested Visits Authorized [id number] Closed 08/06/2023 1 1 Encounter Details Date Type Department Care Team (Latest Contact Info) Description 08/18/2023 2:05 PM CDT - 08/18/2023 11:59 PM CDT Hospital Encounter [facility] Ultrasound [address] [place] [address] Iveth Guzman MD [address] [address] Discharge Disposition: Discharged to home or Selfcare [...] Progress Notes * Iveth Guzman MD - 08/18/2023 2:45 PM CDT I am sad to say that the ultrasound of the breast showed several abnormal areas, and you will need further testing. Who did you see when you were being treated for breast problems before? documented in this encounter Plan of Treatment Upcoming Encounters Date Type Department Care Team (Late st Contact Info) Description 03/23/2024 1:00 PM APRON CLEANER Appointment [facility] Cardiology Services [address] [place] [address] Jose R Pearson MD [address] [place] [address] Discharge Disposition: Discharged to home or Selfcare 03/23/2024 2:30 PM APRON CLEANER Appointment [facility] CT [address] [place] [address] Jose R Pearson MD [address] [place] [address] Discharge Disposition: Discharged to home or Selfcare 03/30/2024 10:00 AM APRON CLEANER Office Visit [facility] Oncology Services [address] [place] [address] Jose R Pearson MD [address] [place] [address] Discharge Disposition: Discharged to home or Selfcare 03/30/2024 10:30 AM APRON CLEANER Lab [facility] Oncology Services [address] [place] [address] Discharge Disposition: Discharged to home or Selfcare 03/31/2024 1:00 PM APRON CLEANER Clinical Support [facility] Oncology Services [address] [place] [address] Jose R Pearson MD [address] [place] [address] Discharge Disposition: Discharged to home or Selfcare 04/28/2024 1:30 PM APRON CLEANER Clinical Support [facility] Oncology Services [address] [place] [address] Discharge Disposition: Discharged to home or Selfcare documented as of this encounter Goals Goal Patient Goal Type Associated Problems Recent Progress Patient-Stated? Author Exercise 3x per week (30 min per time) Exercise No Chica Saldana MD documented as of this encounter Procedures Procedure Name Priority Date/Time Associated Diagnosis Comments FERNANDA US BREAST LIMITED RT Routine 08/18/2023 3:44 PM CDT History of mastectomy, bilateral documented in this encounter Results * FERNANDA US BREAST LIMITED RT (08/18/2023 3:44 PM CDT) Anatomical Region Laterality Modality breast Right Ultrasound 08/18/2023 3:08 PM CDT Narrative 08/19/2023 10:21 AM CDT - [facility] US BREAST LIMITED RT LIMITED ULTRASOUND OF [...] Federica Myrick M.D. ?? ab/:08/18/2023 15:54:27 ?? Pulp Press Tender(s): Anel ??VICENTE Mayer, [facility] letter sent: Abnormal Exam ?? Reading location: [facility] Ultrasound BI-RADS: 5 Highly suggestive of malignancy Procedure Note Federica Myrick MD - 08/19/2023 - [facility] US BREAST LIMITED RT LIMITED ULTRASOUND OF [...] signed by: Federica Myrick M.D. ab/:08/18/2023 15:54:27 Pulp Press Tender(s): VICENTE Sethi, [facility] letter sent: Abnormal Exam Reading location: [facility] Ultrasound BI-RADS: 5 Highly suggestive of malignancy us Iveth Guzman MD IMG MAMMO ORDERABLES Final Result documented in this encounter Visit Diagnoses Diagnosis History of mastectomy, bilateral documented in this encounter Additional Health Concerns Assessment Noted Time PHQ-9 Depression Total Score: 0 04/01/19 20 9:00 AM APRON CLEANER documented as of this encounter Care Teams Lifter Relationship Specialty Start Date End Date Iveth Guzman MD [address] [place] [address] PCP - General Family Medicine 05/02/23 Laurence Luque MD #[address] [address] Consulting Physician General Surgery 02/01/15 Clemencia Bennett MD [address] [place] [address] Family Medicine 01/30/18 documented as of this encounter
--- OUTSIDE RECORDS SUMMARY | 2024-03-15 01:50 | XMS_ITS | Encounter Summary ---
Author Organization [facility] Address [address] [place] [address] Phone Care Team Providers Care Poultry Vaccinator Name Role Phone Laurence Luque MD Unavailable Clemencia Bennett MD Unavailable [phone] Iveth Guzman MD Primary Care Provider [phone] Sony Mcpherson MD Unavailable Jose R Pearson MD Unavailable [phone] Reason for Visit * Reason Comments Medication Refill Encounter Details Date Type Department Care Team (Late st Contact Info) Description 07/16/2023 Refill [facility] - Primary Care - Danny [address] [place] [address] Chica Saldana MD [address] [place] [address] Medication Refill Social History Tobacco [...] Francis RN - 07/16/2023 10:57 AM CDT Medication(s) refilled and signed per [facility] Chronic Medication Refill Standing Order for Pediatricand Adult Patients. Requested Prescriptions Pending Prescriptions Disp Refills metoprolol tartrate (LOPRESSOR) 25 MG Tablet [Pharmacy Med Name: Metoprolol Tartrate 25 MG Oral Tablet] 180 Tablet 0 Sig: Take 1 tablet by mouth twice daily Beta-Blockers Protocol Passed - 07/16/2023 10:55 AM Passed - BP on record in the past year Clinician-entered: BP Readings from Last 3 Encounters: 05/02/23 122/84 10/14/22 138/84 04/16/22 130/80 Patient-entered: No data recorded Passed - Visit with relevant provider in past 12 months or upcoming 90 days Recent Visits Date Type Provider Dept 05/02/23 Office Visit Iveth Guzman MD [facility] 10/14/22 Office Visit Chica Saldana MD [facility] Showing recent visits within past 365 days and meeting all other requirements Future Appointments No visits were found meeting these conditions. Showing future appointments within next 90 days and meeting all other requirements documented in this encounter Plan of Treatment Upcoming Encounters Date Type Department Care Team (Late st Contact Info) Description 03/23/2024 1:00 PM SCHOOL BUS DRIVER/TEACHER ASSISTANT Appointment [facility] Cardiology Services [address] [place] [address] Jose R Pearson MD [address] [place] [address] Discharge Disposition: Discharged to home or Selfcare 03/23/2024 2:30 PM SCHOOL BUS DRIVER/TEACHER ASSISTANT Appointment [facility] [address] [place] [address] [place] [address] [place] [address] Discharge Disposition: Discharged to home or Selfcare 03/30/2024 10:00 AM SCHOOL BUS DRIVER/TEACHER ASSISTANT Office Visit [facility] Oncology Services [address] [place] [phone] [place] [address] [place] [address] Discharge Disposition: Discharged to home or Selfcare 03/30/2024 10:30 AM SCHOOL BUS DRIVER/TEACHER ASSISTANT Lab [facility] Oncology Services [address] [place] [phone] Discharge Disposition: Discharged to home or Selfcare 03/31/2024 1:00 PM SCHOOL BUS DRIVER/TEACHER ASSISTANT Clinical Support [facility] Oncology Services [address] [place] [phone] [place] [address] [place] [address] Discharge Disposition: Discharged to home or Selfcare 04/28/2024 1:30 PM SCHOOL BUS DRIVER/TEACHER ASSISTANT Clinical Support [facility] Oncology Services [address] [place] [phone] Discharge Disposition: Discharged to home or Selfcare [...] Score: 0 04/01/19 20 9:00 AM SCHOOL BUS DRIVER/TEACHER ASSISTANT documented as of this encounter Care Teams Poultry Vaccinator Relationship Specialty Start Date End Date Iveth Guzman MD [address] [place] [address] PCP - General Family Medicine 05/02/23 Laurence Luque MD [address] [address] Consulting Physician General Surgery 02/01/15 Clemencia Bennett MD [address] [place] [address] Family Medicine 01/30/18 Sony Mcpherson MD [address] [address] Consulting Physician General Surgery 09/08/23 Jose R Pearson MD [address] [place] [address] Consulting Physician Medical Oncology 10/02/23 documented as of this encounter
--- OUTSIDE RECORDS SUMMARY | 2024-03-15 01:50 | XMS_ITS | Encounter Summary ---
Author Organization [facility] Address [address] [place] [address] Phone Care Team Providers Care Mental Health Counselor Name Role Phone Laurence Luque MD Unavailable + [phone] Ronit Parish MD Primary Care Provider + [phone] Clemencia Bennett MD Unavailable [phone] Reason for Visit * Reason Comments Medication Refill Encounter Details Date Type Department Care Team (Late st Contact Info) Description 09/12/2021 Refill [facility] - Primary Care - Danny [address] [place] [address] Ronit Parish MD [address] [place] [address] Medication Refill Social History Tobacco [...] Telephone Encounter - Stephanie Pearce RN - 09/12/2021 2:40 PM CDT Medication(s) refilled and signed per [facility] Chronic Medication Refill Standing Order for Pediatricand Adult Patients. Requested Prescriptions Pending Prescriptions Disp Refills ??? metoprolol tartrate (LOPRESSOR) 25 MG Tablet [Pharmacy Med Name: Metoprolol Tartrate 25 MG OralTablet] 180 Tablet 0 Sig: Take 1 tablet by mouth twice daily Beta-Blockers Protocol Passed - 09/12/2021 2:23 PM Passed - BP on record in the past year Clinician-entered: BP Readings from Last 3 Encounters: 06/15/21 142/75 05/30/21 136/80 12/14/20 142/82 Patient-entered: No data recorded Passed - Visit with relevant provider in past 12 months or upcoming 90 days Recent Visits Date Type Provider Dept 05/30/21 Office Visit Lauren Barber APRN, CNP [facility] 12/14/20 Office Visit Ronit Parish MD [facility] Showing recent visits within past 365 days and meeting all other requirements Future Appointments Date Type Provider Dept 11/13/21 Appointment Ronit Parish MD [facility] Showing future appointments within next 90 days and meeting all other requirements documented in this encounter Plan of Treatment Upcoming Encounters Date Type Department Care Team (Late st Contact Info) Description 03/23/2024 1:00 PM MAINTENANCE ENGINEER OIL FIELD Appointment [facility] Cardiology Services [address] [place] [address] Jose R Pearson MD [address] [place] [address] Discharge Disposition: Discharged to home or Selfcare 03/23/2024 2:30 PM MAINTENANCE ENGINEER OIL FIELD [facility]ointment [facility] [address] [place] [phone] Jose R Pearson MD [address] [place] [address] Discharge Disposition: Discharged to home or Selfcare 03/30/2024 10:00 AM MAINTENANCE ENGINEER OIL FIELD Office Visit [facility] Oncology Services [address] [place] [address] Jose R Pearson MD [address] [place] [address] Discharge Disposition: Discharged to home or Selfcare 03/30/2024 10:30 AM MAINTENANCE ENGINEER OIL FIELD Lab [facility] Oncology Services [address] [place] [phone] Discharge Disposition: Discharged to home or Selfcare 03/31/2024 1:00 PM MAINTENANCE ENGINEER OIL FIELD Clinical Support [facility] Oncology Services [address] [place] [address] Jose R Pearson MD [address] [place] [address] Discharge Disposition: Discharged to home or Selfcare 04/28/2024 1:30 PM MAINTENANCE ENGINEER OIL FIELD Clinical Support [facility] Oncology Services [address] [place] [phone] Discharge Disposition: Discharged to home or Selfcare documented as of this encounter Visit Diagnoses Diagnosis Essential hypertension Unspecified essential hypertension documented in this encounter Additional Health Concerns Assessment Noted Time PHQ-9 Depression Total Score: 0 04/01/19 20 9:00 AM MAINTENANCE ENGINEER OIL FIELD documented as of this encounter Care Teams Mental Health Counselor Relationship Specialty Start Date End Date Ronit Parish MD [address] [address] PCP - General Family Medicine 03/01/15 04/15/22 Laruence Luque MD [address] [address] Consulting Physician General Surgery 02/01/15 Clemencia Bennett MD [address] [place] [address] Family Medicine 01/30/18 documented as of this encounter
--- OUTSIDE RECORDS SUMMARY | 2024-03-15 01:50 | XMS_ITS | Encounter Summary ---
Author Organization [facility] Address [address] [place] [address] Phone Care Team Providers Care Enrober Tender Name Role Phone Laurence Luque MD Unavailable + [phone] Clemencia Bennett MD Unavailable [phone] Chica Saldana MD Primary Care Provider + [phone] Reason for Visit * Reason Comments Medication Refill Encounter Details Date Type Department Care Team (Late st Contact Info) Description 07/17/2022 Refill [facility] - Primary Care - [place] [address] [place] [address] Chica Saldana MD [address] [place] [address] Medication Refill Social History Tobacco [...] Telephone Encounter - Rebeca Francis RN - 07/17/2022 12:56 PM CDT Medication(s) [facility] Chronic Medication Refill Standing Order for Pediatricand Adult Patients. Requested Prescriptions Pending Prescriptions Disp Refills ??? metoprolol tartrate (LOPRESSOR) 25 MG Tablet [Pharmacy Med Name: Metoprolol Tartrate 25 MG OralTablet] 180 Tablet 0 Sig: Take 1 tablet by mouth twice daily Beta-Blockers Protocol Passed - 07/17/2022 12:02 PM Passed - BP on record in the past year Clinician-entered: BP Readings from Last 3 Encounters: 04/16/22 130/80 06/15/21 142/75 05/30/21 136/80 Patient-entered: No data recorded Passed - Visit with relevant provider in past 12 months or upcoming 90 days Recent Visits Date Type Provider Dept 04/16/22 Office Visit Chica Saldana MD [facility] Showing recent visits within past 365 days and meeting all other requirements Future Appointments Date Type Provider Dept 10/11/22 Appointment Chica Saldana MD [facility] Showing future appointments within next 90 days and meeting all other requirements documented in this encounter Plan of Treatment Upcoming Encounters Date Type Department Care Team (Late st Contact Info) Description 03/23/2024 1:00 PM COLOR DIPPER Appointment [facility] Cardiology Services [address] [place] [address] Jose R Pearson MD [address] [place] [address] Discharge Disposition: Discharged to home or Selfcare 03/23/2024 2:30 PM COLOR DIPPER [facility] [address] [place] [address] Jose R Pearson MD [address] [place] [address] Discharge Disposition: Discharged to home or Selfcare 03/30/2024 10:00 AM COLOR DIPPER Office Visit [facility] Oncology Services [address] [place] [address] Jose R Pearson MD [address] [place] [address] Discharge Disposition: Discharged to home or Selfcare 03/30/2024 10:30 AM COLOR DIPPER [facility] [address] [place] [address] Discharge Disposition: Discharged to home or Selfcare 03/31/2024 1:00 PM COLOR DIPPER Clinical Support [facility] Oncology Services [address] [place] [address] Jose R Pearson MD [address] [place] [address] Discharge Disposition: Discharged to home or Selfcare 04/28/2024 1:30 PM COLOR DIPPER Clinical Support [facility] Oncology Services [address] [place] [address] Discharge Disposition: Discharged to home or Selfcare [...] Score: 0 04/01/19 20 9:00 AM COLOR DIPPER documented as of this encounter Care Teams Enrober Tender Relationship Specialty Start Date End Date Chica Saldana MD [address] [place] [address] PCP - General Family Medicine 04/16/22 05/01/23 Laurence Luque MD [address] [address] Consulting Physician General Surgery 02/01/15 Clemencia Bennett MD [address] [place] [address] Family Medicine 01/30/18 documented as of this encounter
--- OUTSIDE RECORDS SUMMARY | 2024-03-15 01:50 | XMS_ITS | Encounter Summary ---
Author Organization [facility] Care Team Providers Care Wash Mill Operator Name Role Phone Laurence Luque MD Unavailable + [phone] Ronit Parish MD Primary Care Provider + [phone] Clemencia Bennett MD Unavailable [phone] Encounter Details Date Type Department Care Team (Latest Contact Info) Description 05/30/2021 Travel Social History Tobacco Use Types Packs/Day [...] st Contact Info) Description 03/23/2024 1:00 PM BRICK PICKER Appointment [facility] Cardiology Services [address] [place] [address] Jose R Pearson MD [address] [place] [address] Discharge Disposition: Discharged to home or Selfcare 03/23/2024 2:30 PM BRICK PICKER [facility] [address] [place] [phone] Jose R Pearson MD [address] [place] [address] Discharge Disposition: Discharged to home or Selfcare 03/30/2024 10:00 AM BRICK PICKER Office Visit [facility] Oncology Services [address] [place] [phone] Jose R Pearson MD [address] [place] [address] Discharge Disposition: Discharged to home or Selfcare 03/30/2024 10:30 AM BRICK PICKER [facility] [address] [place] [address] Discharge Disposition: Discharged to home or Selfcare 03/31/2024 1:00 PM BRICK PICKER Clinical Support [facility] Oncology Services [address] [place] [address] Jose R Pearson MD [address] [place] [address] Discharge Disposition: Discharged to home or Selfcare 04/28/2024 1:30 PM BRICK PICKER Clinical Support [facility] Oncology Services [address] [place] [phone] Discharge Disposition: Discharged to home or Selfcare documented as of this encounter Visit Diagnoses Not on filedocumented in this encounter Additional Health Concerns Assessment Noted Time PHQ-9 Depression Total Score: 0 01/16/20 20 9:00 AM BRICK PICKER documented as of this encounter Care Teams Wash Mill Operator Relationship Specialty Start Date End Date Ronit Parish MD [address] [phone] PCP - General Family Medicine 03/01/15 04/15/22 Laurence Luque MD [address] [phone] Consulting Physician General Surgery 02/01/15 Clemencia Bennett MD [address] [place] [address] Family Medicine 01/30/18 documented as of this encounter
--- OUTSIDE RECORDS SUMMARY | 2024-03-15 01:50 | XMS_ITS | Encounter Summary ---
Author Organization [facility] Address [address] [facility] [place] [address] Phone Care Team Providers Care Senior Sharepoint Developer Name Role Phone Laurence Luque MD Unavailable [phone] Clemencia Bennett MD Unavailable [phone] Iveth Guzman MD Primary Care Provider [phone] Reason for Referral * PT/OT/ST (Routine) - Open Specialty Diagnoses / Procedures Referred By Martin laguna Referred To Contact Rehabilitation Diagnoses Recurrent malignant neoplasm of right breast (HCC) Jose R Pearson MD [address] [place] [address] Phone: tel: fax: [facility] at [address] [address] Phone: tel: fax: Referral ID Status Reason Start Date Expiration Date Visits Re quested Visits Authorized [id number] Open 08/26/2023 1 60 Scheduling Instructions Angie is being referred for lymphedema therapy to the [facility] secondary to malignancy. Please contact patient for scheduling questions or concerns. * Radiology Services (Less Than 2 Weeks) - Closed Specialty Diagnoses / Procedures Referred By Martin laguna Referred To Contact Radiology Diagnoses Recurrent malignant neoplasm of right breast (HCC) Procedures NM BONE SCAN WHOLE BODY Jose R Pearson MD [address] [place] [address] Phone: tel: fax: Referral ID Status Reason Start Date Expiration Date Visits Re quested Visits Authorized [id number] Closed 08/26/2023 1 1 * Radiology Services (Less Than 2 Weeks) - Closed Specialty Diagnoses / Procedures Referred By Martin laguna Referred To Contact Radiology Diagnoses Recurrent malignant neoplasm of right breast (HCC) Procedures CT CHEST ABDOMEN AND PELVIS W CONTRAST Jose R Pearson MD [address] [place] [address] Phone: tel: fax: Referral ID Status Reason Start Date Expiration Date Visits Re quested Visits Authorized [id number] Closed 08/26/2023 1 1 Reason for Visit * Reason Comments New Patient Breast Cancer * Medical Care (Routine) - Open Specialty Diagnoses / Procedures Referred By Martin laguna Referred To Contact Diagnoses Mass overlapping multiple quadrants of right breast Procedures OFFICE/OP NEW LVL 3 LOW MDM/30-44 MIN OFFICE/OP EST LVL 3 LOW MDM/20-29 MIN Iveth Guzman MD [address] [place] [address] Phone: tel: fax: [facility] On[facility] Services [address] [place] [address] Phone: tel: fax: Referral ID Status Reason Start Date Expiration Date Visits Re quested Visits Authorized [id number] Open 08/19/2023 1 11 Encounter Details Date Type Department Care Team (Late st Contact Info) Description 08/26/2023 10:20 AM CDT [facility] [address] [place] [id number] Jose R Pearson MD [address] [place] [address] Recurrent malignant neoplasm of right breast (HCC) (Primary Dx); Mass overlapping multiple quadrants of right breast; Pure hypercholesterolemia; Essential hypertension; Breast cancer metastasized to axillary lymph node, [...] Sign Reading Time Taken Comments Blood Pressure 170/92 08/26/2023 10:41 AM CDT Pulse 69 08/26/2023 10:41 AM CDT Temperature 36.4 ??C (97.6 ??F) 08/26/2023 10:41 AM C DT Respiratory Rate 18 08/26/2023 10:41 AM CDT Oxygen Saturation 97% 08/26/2023 10:41 AM CDT Inhaled Oxygen Concentration - - Weight 73.8 kg (162 lb 9.6 oz) 08/26/2023 10:41 AM CDT Height 154.9 cm (5' 1 ) 08/26/2023 10:41 AM CDT Body Mass Index 30.72 08/26/2023 10:41 AM CDT documented in this encounter Progress Notes * Rosa Galvez - 08/26/2023 10:20 AM CDT OUTPATIENT HEMATOLOGY-ONCOLOGY CONSULT/H&P DATE OF CONSULT: 08/26/2023 REFERRING PHYSICIAN: Iveth Guzman MD REASON FOR CONSULTATION: Recurrent breast cancer to lymph node Present Illness Angie Reed is a very pleasant 53 y.o. female seen today for recurrent breast cancer to axillary lymph node. Angie is here today ambulating without support accompanied by her Isaías and Ilene Hair cancer navigator for support. She is very tearful and emotional on entering the room. Patient reports this started with pain that developed along the mastectomy incision. Angie contacted her PCP and was brought in for evaluation on 05/02/23 with imaging studies ordered for evaluation. Patient reports pulling sensation when raising the right upper extremity. Diagnostic mammogram was ordered at this visit, revised to US Right Breast and Axilla due to patient being s/p bilateral mastectomy in 2016. Angie presented to [facility] on 08/18/23 for her US exam. During this study patient was found to have thickened erythematous skin with ulceration and scabbing concerning for ulcerated mass, multiple nodules within the tissues of the superior postsurgical chest suspicious for malignancy, and multiple right axillary lymph nodes suspicious for malignancy. Angie returned on 08/20/23 for US guided biopsy of RT upper inner quadrant of breast and right axillary lymph node. Pathology confirmed invasive ductal carcinoma, ER/NY positive, Ki67 strong at 80%, with HER2 testing pending. Right axillary lymph node positive for metastatic adenocarcinoma consistent with breast primary. Angie was initially diagnosed stage 1 invasive ductal carcinoma of the right breast in 2013 with bilateral mastectomy by Dr. Luque. During this time she completed [facility] panel that was negative for BRCA1/2. Patient underwent bilateral mastectomy due to calcifications identified in the left breast on diagnostic studies prior to surgery. She was treated with Tamoxifen through 2017 for a total of 5 years. Isaías reports patient has been experiencing episodes of tearfulness since finding out about diagnosis on 08/22/23. Angie reports attempting sleep but unable to ease nerves to obtain rest. Angie reports with first occurring at age 16. She reports history of oral hormonal control for roughly 12 years between her second and third child. She denies any history of HRT to ease menopausal symptoms. Patient reports last menstrual cycle occurring over 7 years ago withoutvaginal spotting appreciated. Angie last completed PAP exam on 11/21/22 with negative results received and in CareEverywhere. Her last colonoscopy was completed on 09/30/[address] Hickman with only internal hemorrhoidal tissue appreciated. It was recommended to repeat screening exam in 5-7 years or sooner based on symptoms. Angie is currently treated for hypertension and high cholesterol. She reports these symptoms are well controlled and managed by PCP. Angie reports remaining active and eating healthy diet. She deniesany change in breathing, bowels, or urination. Angie reports tolerating RUE pain with stretching and movement to prevent stiffness from developing. She denies any notable swelling in the RUE vs LUE. Patient denies history of lymphedema or therapy to improve symptom. BRIEF ONCOLOGICAL HISTORY: Recurrent invasive ductal carcinoma with metastatic [...] axilla biopsy: pathology confirmed invasive ductal carcinoma, ER/NY positive, Ki67 strong at 80%, with HER2 testing pending 2. Malignant breast neoplasm stage I: Pathologic stage T1cN0 -- s/p double mastectomy and right SLNB on 12/01/[address] Luque ---3 distinct foci of invasive ductal carcinoma measuring 11mm, 7mm, and 5mm. ER/NY strongly positive in all tumors that were biopsied. Negative HER2 status. OncotypeDX showed low risk RS (score of 16). BRCA1/2 negative -- Did not need adjuvant RT -- Started Lezama in 12/2013 which she is tolerating well. --last seen 02/21/16 with last Tamoxifen refill in 2017. PAST MEDICAL AND SURGICAL HISTORY: Past Medical History Positives Diagnosis Date Breast cancer (HCC) Carcinoma (HCC) 2013 bilateral, right was cancer and left calcium GERD (gastroesophageal reflux disease) HTN (hypertension) Past Surgical History: Procedure Laterality Date BREAST BIOPSY Right 08/20/2023 FERNANDA US GUIDANCE AND CORE BREAST BIOPSY RIGHT 08/20/2023 Jony Harding MD [facility] ULTRASOUND COLONOSCOPY N/A 09/30/2018 Procedure: COLONOSCOPY - HEMORRHOIDS, NEGATIVE TERMINAL ILEUM; Surgeon: Patrice Hickman DO; Location: [facility] GI LAB; Service: Gastroenterology MASTECTOMY Bilateral 2014 TUBAL LIGATION SOCIAL AND FAMILY HISTORY: Reviewed in chart Angie denies any personal history of cigarette tobacco use. Patient reports rare social alcohol consumption. Denies any current or history of illicit drug use. Angie reports half-sister diagnosed and treated for ovarian cancer. Patient denies any other familyhistory of hematological or oncological disorders. CURRENT MEDS: Current Outpatient Medications: atorvastatin (LIPITOR) 10 MG Tablet metoprolol tartrate (LOPRESSOR) 25 MG Tablet Multiple Vitamin (MULTI-VITAMIN PO) triamcinolone (KENALOG) 0.1 % Cream Allergies as of 08/26/2023 (No Known Allergies) REVIEW OF SYSTEMS Review of Systems Constitutional: Negative for malaise/fatigue. Respiratory: Negative for cough and shortness of breath. Cardiovascular: Negative for chest pain and leg swelling. Musculoskeletal: Negative for joint pain and myalgias. Right chest wall pain and decreased ROM of the RUE due to tightening of the skin along mastectomy incision line Skin: Ulcerations present along the right mastectomy incisional line, new within the last 2 weeks Psychiatric/Behavioral: The patient is nervous/anxious and has insomnia. PHYSICAL EXAM Physical Exam Chest: Breasts: Right: Absent. Comments: Bilateral mastectomy with erythema and puckering of the skin in the right chest Few scabs present along the incisional line Fullness appreciated in the right axilla PAIN ASSESSMENT: no verbal pain complaints today. DATA: Lab Results Component Value Date WBC 8.88 05/02/2023 RBC 4.71 05/02/2023 HEMOGLOBIN 14.1 05/02/2023 HEMATOCRIT 42.3 05/02/2023 MCV 89.8 05/02/2023 MCH 29.9 05/02/2023 MCHC 33.3 05/02/2023 PLATELETCNT 289 05/02/2023 RDW 12.1 05/02/2023 LYMPHOCYTES 34.2 05/02/2023 RELEOS 2.4 05/02/2023 RELBAS 0.6 05/02/2023 ANC 4.97 05/02/2023 MONOCYTES 0.61 05/02/2023 EOSINOPHILS 0.21 05/02/2023 BASOPHILS 0.05 05/02/2023 Lab Results Component Value Date SODIUM 140 05/02/2023 POTASSIUM 3.7 05/02/2023 CHLORIDE 106 05/02/2023 ANIONGAP 12.7 05/02/2023 GLUCOSE 101 (H) 05/02/2023 BUN 11 05/02/2023 CREATININE 0.80 05/02/2023 TOTALPROTEIN 7.4 05/02/2023 ALBUMIN 4.4 05/02/2023 CALCIUM 9.6 05/02/2023 SGPTALT 30 05/02/2023 ALKALINEPHO 92 05/02/2023 DIAGNOSTIC IMAGING STUDIES: 08/18/23 US RIGHT CHEST AND AXILLA: IMPRESSION: [...] to chest wall and right axillary lymph node History of bilateral mastectomy Possible menopausal status Plan: 2. Obtain CT C/a/P and NM Bone scan to assess for metastatic disease occurring outside the chest wall and axilla. 3. Obtain labs today to assess for menopausal status and establish levels. 4. Start Lorazepam 0.5 mg every 8 hours as needed for anxiety. Patient was encouraged to use this sparingly to prevent addiction. Follow up in 8-10 days to review test results The patient was given an opportunity to ask questions, and all questions answered to patient's satisfaction. Patient verbalizes understanding of the plan as outlined above. The documentation for this visit was completed by Rosa Galvez acting as a scribe for Jose R Wilkes MD. 08/26/2023, 9:52 AM CDT * Jose R Pearson MD - 08/26/2023 10:20 AM CDT OUTPATIENT HEMATOLOGY-ONCOLOGY CONSULT/H&P DATE OF CONSULT: 08/26/2023 REFERRING PHYSICIAN: Iveth Guzman MD REASON FOR CONSULTATION: Recurrent breast cancer with metastasis to skin and axillary lymph nodes Present Illness Angie Reed is a very pleasant 53 y.o. female seen today for recurrent breast cancer after mastectomy involving the chest wall and axillary lymph nodes. Angie is here today ambulating without support accompanied by her Isaías and Ilene [place] cancer navigator for support. She is very tearful and emotional on entering the room. Patient reports this started with pain that developed charles g the mastectomy incision. Angie contacted her PCP and was brought in for evaluation on 05/02/23 with imaging studies ordered for evaluation. Patient reports pulling sensation when raising the right upper extremity. Diagnostic mammogram was ordered at this visit, revised to US Right Breast and Axilla due to patient being s/p bilateral mastectomy in 2015. Angie presented to [facility] on 08/18/23 for her US exam. During this study patient was found to have thickened erythematous skin with ulceration and scabbing concerning for ulcerated mass, multiple nodules within the tissues of the superior postsurgical chest suspicious for malignancy, and multiple right axillary lymph nodes suspicious for malignancy. Angie returned on 08/20/23 for US guided biopsy of RT upper inner quadrant of breast and right axillary lymph node. Pathology confirmed invasive ductal carcinoma, ER/NY positive, Ki67 strong at 80%, with HER2 testing pending. Right axillary lymph node positive for metastatic adenocarcinoma consistent with breast primary. Angie was initially diagnosed stage 1 invasive ductal carcinoma of the right breast in 2013 with bilateral mastectomy by Dr. Luque. During this time she completed [facility] panel that was negative for BRCA1/2. Patient underwent bilateral mastectomy due to calcifications identified in the left breast on diagnostic studies prior to surgery. She was treated with Tamoxi fen through 2017 for a total of 5 years. Isaías reports patient has been experiencing episodes of tearfulness since finding out about diagnosis on 08/22/23. Angie reports attempting sleep but unable to ease nerves to obtain rest. Angie reports with first occurring at age 16. She reports history of oral hormonal control for roughly 12 years between her second and third child. She denies any history of HRT to ease menopausal symptoms. Patient reports last menstrual cycle occurring over 7 years ago withoutvaginal spotting appreciated. Angie last completed PAP exam on 11/21/22 with negative results received and in CareEverywhere. Her last colonoscopy was completed on 09/30/[address] Hickman with only internal hemorrhoidal tissue appreciated. It was recommended to repeat screening exam in 5-7 years or sooner based on symptoms. Angie is currently treated for hypertension and high cholesterol. She reports these symptoms are well controlled and managed by PCP. Angie reports remaining active and eating healthy diet. She deniesany change in breathing, bowels, or urination. Angie reports tolerating RUE pain with stretching and movement to prevent stiffness from developing. She denies any notable swelling in the RUE vs LUE. Patient denies history of lymphedema or therapy to improve symptom. BRIEF ONCOLOGICAL HISTORY: Recurrent invasive ductal carcinoma with metastatic [...] axilla biopsy: pathology confirmed invasive ductal carcinoma, ER/NY positive, Ki67 strong at 80%, with HER2 testing pending 2. Malignant breast neoplasm stage I: Pathologic stage T1cN0 -- s/p double mastectomy and right SLNB on 12/01/[address] Luque ---3 distinct foci of invasive ductal carcinoma measuring 11mm, 7mm, and 5mm. ER/NY strongly positive in all tumors that were biopsied. Negative HER2 status. OncotypeDX showed low risk RS (score of 16). BRCA1/2 negative -- Did not need adjuvant RT -- Started Lezama in 12/2013 which she is tolerating well. --last seen 02/21/16 with last Tamoxifen refill in 2016. Patient discontinued tamoxifen on her own in 2017 PAST MEDICAL AND SURGICAL HISTORY: Past Medical History Positives Diagnosis Date Breast cancer (HCC) Carcinoma (HCC) 2013 bilateral, right was cancer and left calcium GERD (gastroesophageal reflux disease) HTN (hypertension) Past Surgical History: Procedure Laterality Date BREAST BIOPSY Right 08/20/2023 FERNANDA US GUIDANCE AND CORE BREAST BIOPSY RIGHT 08/20/2023 Jony Harding MD [facility] ULTRASOUND COLONOSCOPY N/A 09/30/2018 Procedure: COLONOSCOPY - HEMORRHOIDS, NEGATIVE TERMINAL ILEUM; Surgeon: Patrice Hickman DO; Location: [facility] GI LAB; Service: Gastroenterology MASTECTOMY Bilateral 2014 TUBAL LIGATION SOCIAL AND FAMILY HISTORY: Reviewed in chart Angie denies any personal history of cigarette tobacco use. Patient reports rare social alcohol consumption. Denies any current or history of illicit drug use. Angie reports half-sister diagnosed and treated for ovarian cancer. Patient denies any other familyhistory of hematological or oncological disorders. CURRENT MEDS: Current Outpatient Medications: atorvastatin (LIPITOR) 10 MG Tablet LORazepam (ATIVAN) 0.5 MG Tablet metoprolol tartrate (LOPRESSOR) 25 MG Tablet Multiple Vitamin (MULTI-VITAMIN PO) triamcinolone (KENALOG) 0.1 % Cream Allergies as of 08/26/2023 (No Known Allergies) REVIEW OF SYSTEMS Review of Systems Constitutional: Negative for malaise/fatigue. Respiratory: Negative for cough and shortness of breath. Cardiovascular: Negative for chest pain and leg swelling. Musculoskeletal: Negative for joint pain and myalgias. Right chest wall pain and decreased ROM of the RUE due to tightening of the skin along mastectomy incision line Skin: Ulcerations present along the right mastectomy incisional line, new within the last 2 weeks Psychiatric/Behavioral: The patient is nervous/anxious and has insomnia. PHYSICAL EXAM Physical Exam Chest: Breasts: Right: Absent. Comments: Bilateral mastectomy with erythema and puckering of the skin in the right chest Few scabs present along the incisional line Fullness appreciated in the right axilla PAIN ASSESSMENT: no verbal pain complaints today. DATA: Lab Results Component Value Date FINALDX 08/20/2023 A. Breast, right upper inner quadrant, 7 cm from center area 2, ultrasound guided needle biopsy: - Invasive carcinoma of no special type (ductal) - Valier histologic grade Glandular/tubular differentiation: Score 3 Nuclear [...] - Extensive areas of necrosis are observed. ER positive greater than 90% NY positive greater than 90% Ki-67 high 80% HER2 pending Lab Results Component Value Date WBC 8.88 05/02/2023 RBC 4.71 05/02/2023 HEMOGLOBIN 14.1 05/02/2023 HEMATOCRIT 42.3 05/02/2023 MCV 89.8 05/02/2023 MCH 29.9 05/02/2023 MCHC 33.3 05/02/2023 PLATELETCNT 289 05/02/2023 RDW 12.1 05/02/2023 LYMPHOCYTES 34.2 05/02/2023 RELEOS 2.4 05/02/2023 RELBAS 0.6 05/02/2023 ANC 4.97 05/02/2023 MONOCYTES 0.61 05/02/2023 EOSINOPHILS 0.21 05/02/2023 BASOPHILS 0.05 05/02/2023 Lab Results Component Value Date SODIUM 140 05/02/2023 POTASSIUM 3.7 05/02/2023 CHLORIDE 106 05/02/2023 ANIONGAP 12.7 05/02/2023 GLUCOSE 101 (H) 05/02/2023 BUN 11 05/02/2023 CREATININE 0.80 05/02/2023 TOTALPROTEIN 7.4 05/02/2023 ALBUMIN 4.4 05/02/2023 CALCIUM 9.6 05/02/2023 SGPTALT 30 05/02/2023 ALKALINEPHO 92 05/02/2023 DIAGNOSTIC IMAGING STUDIES: 08/18/23 US RIGHT CHEST AND AXILLA: IMPRESSION: [...] and right axillary lymph nodes, ER positive, NY positive, HER2 Gabriel pending -- germline BRCA1/2 negative History of multifocal right breast cancer in 2013 -- status post bilateral mastectomy No menstrual period since 2018. Hypertension and hyperlipidemia Plan: 1. Reviewed patient's recent clinical symptoms, her prior oncology history, treatment received, physical exam findings from today as well as pathology results. Clinical picture consistent with recurrent right breast cancer involving the chest wall, skin nodules and right axillary lymph nodes. Will o btain staging studies to assess extent disease as below. Obtain CT C/a/P and NM Bone scan to assessfor metastatic disease occurring outside the chest wall and axilla. 2. We reviewed that disease is ER and NY positive. We are awaiting HER2 Gabriel. She has not had menstrual period for 4-5 years so she is most likely menopausal. Will obtain estradiol, FSH and LH levels.Depending on these levels, we will start her on endocrine therapy with either tamoxifen or aromatase inhibitor while we await above testing including HER2 Gabriel. 3. Patient was given a short prescription for Lorazepam 0.5 mg every 8 hours as needed for anxiety due to current medical condition. Patient was encouraged to use this sparingly to prevent addiction. 4. Will obtain NGS panel via [employer] on the breast cancer tissue to check for actionable mutations including PIK3 Follow up in 8-10 days to review test results The patient was given an opportunity to ask questions, and all questions answered to patient's satisfaction. Patient verbalizes understanding of the plan as outlined above. The documentation for this visit was completed by Rosa Galvez acting as a scribe for Jose R Wilkes MD. 08/26/2023, 11:26 AM CDT The documentation recorded by the scribe was completed while in the exam room with me and the patient. The documentation accurately reflects the service I personally performed and the decisions made by me. I have confirmed and edited the documentation as necessary. Jose R Pearson MD 08/26/2023, 11:27 AM CDT documented in this encounter Miscellaneous Notes * Toshia - Bianca Kong - 08/26/2023 10:20 AM CDT The patient reports tenderness in right breast area, site of biopsy. Pain score is 7/10. * Bianca Mckeon - 08/26/2023 10:20 AM CDT Patient reports pain in right breast stating the area is tender to touch. Patient recently completed breast biopsy on 08/20/23. Pain score is 7/10. * Bianca Mckeon - 08/26/2023 10:20 AM CDT AVS printed. Patient will follow up in 8-10 days to review imaging. * Interdisciplinary - Kathryn Anderson RN - 08/26/2023 10:20 AM CDT Tempus xT submitted online from pathology at [facility] on 08/20/23. documented in this encounter Plan of Treatment Upcoming Encounters Date Type Department Care Team (Late st Contact Info) Description 03/23/2024 1:00 PM COMMUNICATIONS DESIGNER Appointment [facility] Services [address] [place] [address] Jose R Pearson MD [address] [place] [address] Discharge Disposition: Discharged to home or Selfcare 03/23/2024 2:30 PM COMMUNICATIONS DESIGNER Appointment [facility] [address] [place] [address] Jose R Pearson MD [address] [place] [address] Discharge Disposition: Discharged to home or Selfcare 03/30/2024 10:00 AM COMMUNICATIONS DESIGNER Office Visit [facility] Oncology Services [address] [place] [address] Jose R Pearson MD [address] [place] [address] Discharge Disposition: Discharged to home or Selfcare 03/30/2024 10:30 AM COMMUNICATIONS DESIGNER Lab [facility] [address] [place] [address] Discharge Disposition: Discharged to home or Selfcare 03/31/2024 1:00 PM COMMUNICATIONS DESIGNER Clinical Support [facility] [address] [place] [address] Jose R Pearson MD [address] [place] [address] Discharge Disposition: Discharged to home or Selfcare 04/28/2024 1:30 PM COMMUNICATIONS DESIGNER Clinical Support [facility] Oncology Services [address] [place] [address] Discharge Disposition: Discharged to home or Selfcare Scheduled Referrals Name Type Priority Associated Diagnoses Orde r Schedule PHYSICAL THERAPY REFERRAL Outpatient Referral Routine Recurrent malignant neoplasm of right breast (HCC) Expected: 08/26/2023, Expires: 08/25/2024 documented as of this encounter Goals Goal Patient Goal Type Associated Problems Recent Progress Patient-Stated? Author Exercise 3x per week (30 min per time) Exercise No Chica Saldana MD documented as of this encounter Results * NM BONE SCAN [...] PM T: ??09/01/2023 2:06 PM Report ID: [id number] Reading Location: ??[id number] Procedure Note Keo Quiroz MD - 09/01/2023 [...] Keo Quiroz M.D. LB: NAVEED Report ID: [id number] Reading Location: [place] [address] IMPRESSION: 1. Focal uptake in the medial [...] for further evaluation of the above findings. Critical access hospital Giovanna Pearson MD [facility] ORDERABLES Final Result * CT CHEST ABDOMEN AND PELVIS [...] ??Largest is a 1.2 cm prevascular node (30). HEART: ?? Heart size is normal with [...] necrotic right axillary node measures 1.3 cm (/40). ??There are enlarged right subpectoral lymph nodes measuring up to 10 mm in short axis (/28, 22, 20). Within the left chest wall/axillary region, there is a 3.0 x 2.0 cm heterogeneously enhancing lobulated mass which may represent lymph node (40). ??Other prominent left axillary lymph nodes measuring up to 8 mm (34). HARDWARE/LINES/TUBES: ?? None. MUSCULOSKELETAL CHEST: ?? No [...] PM T: ??09/01/2023 6:03 PM Report ID: [id number] Reading Location: ??[id number] Procedure Note Elizabeth Ayala MD - 09/01/2023 [...] the pelvis and left anterior 7th rib (2/85) are stable since 2021. Correlate with whole-body bone scan findings. OTHER: No significant abnormality. THIS IS AN ELECTRONICALLY VERIFIED FINAL REPORT 09/01/2023 6:03 PM - Electronically signed by Elizabeth Ramirez M.D. FT: FT Report ID: [id number] Reading Location: [place] [address] IMPRESSION: 1. Status post bilateral mastectomy with [...] evidence of metastatic disease in the abdomen Jose R Pearson MD IMG CT ORDERABLES Final Result * (ABNORMAL) CMP (COMPREHENSIVE METABOLIC PANEL) (08/26/2023 11:36 AM CDT) Pathologist [facility] [place] SODIUM 140 136 - 145 mmol/L 08/26/2023 1:25 PM CDT [facility] POTASSIUM 3.8 3.5 - 5.1 mmol/L 08/26/2023 1:25 PM CDT [facility] CHLORIDE 103 98 - 107 mmol/L 08/26/2023 1:25 PM CDT [facility] CO2, VENOUS 22 22 - 30 mmol/L 08/26/2023 1:25 PM CDT [facility] ANION GAP 18.8(H) <18.0 mmol/L 08/26/2023 1:25 PM CDT [facility] GLUCOSE 104(H) 70 - 99 mg/dL 08/26/2023 1:25 PM CDT [facility] BUN 11 10 - 20 mg/dL 08/26/2023 1:25 PM CDT [facility] CREATININE, BLOOD 1.03(H) 0.60 - 1.00 mg/dL 08/26/2023 1:25 PM CDT [facility] BUN/CREATININE RATIO 11(L) 12 - 20 ratio 08/26/2023 1:25 PM CDT [facility] TOTAL PROTEIN 8.2 6.3 - 8.2 g/dL 08/26/2023 1:25 PM CDT [facility] ALBUMIN 4.9 3.5 - 5.0 g/dL 08/26/2023 1:25 PM CDT [facility] A/G RATIO 1.5 1.0 - 2.2 08/26/2023 1:25 PM CDT [facility] CALCIUM 10.4 8.7 - 10.5 mg/dL 08/26/2023 1:25 PM CDT [facility] T BILI 0.8 0.2 - 1.2 mg/dL 08/26/2023 1:25 PM CDT [facility] SGOT (AST) 35(H) 5 - 34 U/L 08/26/2023 1:25 PM CDT [facility] SGPT (ALT) 32 0 - 55 U/L 08/26/2023 1:25 PM CDT [facility] ALKALINE PHOSPHATASE 83 40 - 150 U/L 08/26/2023 1:25 PM CDT [facility] IS THE PATIENT REQUIRED TO BE FASTING? No 08/26/2023 1:25 PM CDT [facility] GFR, ESTIMATED >60 >=60 08/26/2023 1:25 PM CDT [facility] Comment: Creatinine Clearance is the preferred criteria for selecting drug dose adjustments in renally impaired patients. ??The GFR is provided as additional pertinent clinical information. GFR is reported in mL/min/1.73 sq m. Calculation based on the Chronic Kidney Disease Epidemiology Collaboration (CKD- EPI) equation refit without adjustment for race. GFR, EST. >60 >=60 024 1:25 PM CDT [facility] GFR, EST. NONAFRICAN 56(L) >=60 08/26/2023 1:25 PM CDT [facility] Blood Venipuncture / Unknown 08/26/2023 11:36 AM CDT 08/26/2023 11:36 AM CDT Jose R Pearson MD CHEMISTRY ORDERABLES Fin al Result [facility] [address] [place] [address] documented in this encounter Visit Diagnoses Diagnosis Recurrent malignant neoplasm of right breast (HCC)- Primary Mass overlapping multiple quadrants of right breast Pure hypercholesterolemia Essential hypertension Unspecified essential hypertension Breast cancer metastasized to axillary lymph node, right (HCC) Recurrent malignant neoplasm of right breast (HCC) Recurrent malignant neoplasm of right breast (HCC) documented in this encounter Additional Health Concerns Assessment Noted Time PHQ-9 Depression Total Score: 0 04/01/19 20 9:00 AM COMMUNICATIONS DESIGNER documented as of this encounter Care Teams Senior Sharepoint Developer Relationship Specialty Start Date End Date Iveth Guzman MD [address] [place] [address] PCP - General Family Medicine 05/02/23 Laurence Luque MD [address] [address] Consulting Physician General Surgery 02/01/15 Clemencia Bennett MD [address] [place] [address] Family Medicine 01/30/18 documented as of this encounter
--- OUTSIDE RECORDS SUMMARY | 2024-03-15 01:50 | XMS_ITS | Encounter Summary ---
Author Organization [facility] Address [address] [place] [address] Phone Care Team Providers Care Driver License Reviewing Officer Name Role Phone Laurence Luque MD Unavailable Clemencia Bennett MD Unavailable [phone] Iveth Guzman MD Primary Care Provider [phone] Reason for Visit * Reason Onset Date Comments Results 08/22/2023 Pathology Encounter Details Date Type Department Care Team (Late st Contact Info) Description 08/22/2023 Telephone [facility] - Primary Care - [place] [address] [place] [address] Iveth Guzman MD [address] [place] [address] Results (Pathology ) Social History Tobacco Use Types Packs/Day [...] Telephone Encounter - Rebeca Francis RN - 08/22/2023 2:59 PM CDT Patient aware and verbalized understanding. Ilene Hair breast navigator contacted to discuss following up with pt. She states she spoke to her and she is quite upset at the news and pt is scheduled with Dr. Pearson's office on 08/26/23. * Telephone Encounter - Rebeca Francis RN - 08/22/2023 2:56 PM CDT ----- Message from Iveth Guzman MD sent at 08/22/2023 2:41 PM CDT ----- Unfortunately the surgical pathology is consistent with your cancer coming back. You will need to see a specialist to help plan radiation, chemotherapy, and possible surgical excision. documented in this encounter Plan of Treatment Upcoming Encounters Date Type Department Care Team (Late st Contact Info) Description 03/23/2024 1:00 PM TELECOMMUNICATION EQUIPMENT REPAIRER Appointment [facility] Cardiology Services [address] [place] [phone] Jose R Pearson MD [address] [place] [address] Discharge Disposition: Discharged to home or Selfcare 03/23/2024 2:30 PM TELECOMMUNICATION EQUIPMENT REPAIRER Appointment [facility] CT [address] [place] [phone] Jose R Pearson MD [address] [place] [address] Discharge Disposition: Discharged to home or Selfcare 03/30/2024 10:00 AM TELECOMMUNICATION EQUIPMENT REPAIRER Office Visit [facility] Oncology Services [address] [place] [phone] Jose R Pearson MD [address] [place] [address] Discharge Disposition: Discharged to home or Selfcare 03/30/2024 10:30 AM TELECOMMUNICATION EQUIPMENT REPAIRER Lab [facility]cology Services [address] [place] [phone] Discharge Disposition: Discharged to home or Selfcare 03/31/2024 1:00 PM TELECOMMUNICATION EQUIPMENT REPAIRER Clinical Support [facility]cology Services [address] [place] [phone] Jose R Pearson MD [address] [place] [address] Discharge Disposition: Discharged to home or Selfcare 04/28/2024 1:30 PM TELECOMMUNICATION EQUIPMENT REPAIRER Clinical Support [facility] Services [address] [place] [phone] Discharge Disposition: Discharged to home or Selfcare documented as of this encounter Goals Goal Patient Goal Type Associated Problems Recent Progress Patient-Stated? Author Exercise 3x per week (30 min per time) Exercise Chica Louis MD documented as of this encounter Visit Diagnoses Not on filedocumented in this encounter Additional Health Concerns Assessment Noted Time PHQ-9 Depression Total Score: 0 04/01/19 20 9:00 AM TELECOMMUNICATION EQUIPMENT REPAIRER documented as of this encounter Care Teams Driver License Reviewing Officer Relationship Specialty Start Date End Date Iveth Guzman MD [address] [place] [address] PCP - General Family Medicine 05/02/23 Laurence Luque MD [address] [address] Consulting Physician General Surgery 02/01/15 Clemencia Bennett MD [address] [place] [address] Family Medicine 01/30/18 documented as of this encounter
--- OUTSIDE RECORDS SUMMARY | 2024-03-15 01:50 | XMS_ITS | Encounter Summary ---
Author Organization [facility] Care Team Providers Care Coordinating Producer Name Role Phone Laurence Luque MD Unavailable Clemencia Bennett MD Unavailable [phone] Iveth Guzman MD Primary Care Provider [phone] Encounter Details Date Type Department Care Team (Latest Contact Info) Description 08/18/2023 Travel Social History Tobacco Use Types Packs/Day [...] st Contact Info) Description 03/23/2024 1:00 PM SENIOR SQL SERVER DEVELOPER [facility]ment [facility] [address] [place] [address] Jose R Pearson MD [address] [place] [address] Discharge Disposition: Discharged to home or Selfcare 03/23/2024 2:30 PM SENIOR SQL SERVER DEVELOPER Appointment [facility] CT [address] [facility] [place] [address] Jose R Pearson MD [address] [place] [address] Discharge Disposition: Discharged to home or Selfcare 03/30/2024 10:00 AM SENIOR SQL SERVER DEVELOPER Office Visit [facility] Oncology Services [address] [place] [address] Jose R Pearson MD [address] [place] [address] Discharge Disposition: Discharged to home or Selfcare 03/30/2024 10:30 AM SENIOR SQL SERVER DEVELOPER Lab [facility] [address] [place] [address] Discharge Disposition: Discharged to home or Selfcare 03/31/2024 1:00 PM SENIOR SQL SERVER DEVELOPER Clinical Support [facility] [address] [place] [address] Jose R Pearson MD [address] [place] [address] Discharge Disposition: Discharged to home or Selfcare 04/28/2024 1:30 PM SENIOR SQL SERVER DEVELOPER Clinical Support [facility] [address] [place] [address] Discharge Disposition: Discharged to home or Selfcare documented as of this encounter Goals Goal Patient Goal Type Associated Problems Recent Progress Patient-Stated? Author Exercise 3x per week (30 min per time) Exercise Chica Louis MD documented as of this encounter Visit Diagnoses Not on filedocumented in this encounter Additional Health Concerns Assessment Noted Time PHQ-9 Depression Total Score: 0 04/01/19 20 9:00 AM SENIOR SQL SERVER DEVELOPER documented as of this encounter Care Teams Coordinating Producer Relationship Specialty Start Date End Date Iveth Guzman MD [address] [place] [address] PCP - General Family Medicine 05/02/23 Laurence Luque MD [address] [address] Consulting Physician General Surgery 02/01/15 Clemencia Bennett MD [address] [place] [address] Family Medicine 01/30/18 documented as of this encounter
--- OUTSIDE RECORDS SUMMARY | 2024-03-15 01:50 | XMS_ITS | Encounter Summary ---
Author Organization [facility] Address [address] [place] [address] Phone Care Team Providers Care Communications Media Professor Name Role Phone Laurence Luque MD Unavailable Clemencia Bennett MD Unavailable [phone] Iveth Guzman MD Primary Care Provider [phone] Reason for Referral * Radiology Services (Less Than 2 Weeks) - Authorized Specialty Diagnoses / Procedures Referred By Martin laguna Referred To Contact Radiology Diagnoses Mass overlapping multiple quadrants of right breast Procedures FERNANDA DIAG BILATERAL DIGITAL W CAD W SILVINO Iveth Guzman MD [address] [place] [address] Phone: tel: fax: Referral ID Status Reason Start Date Expiration Date V isits Requested Visits Authorized [id number] Authorized 05/02/2023 1 1 ING MACHINE LOADER Reason for Visit * Reason Comments Transition of Care Encounter Details Date Type Department Care Team (Late st Contact Info) Description 05/02/2023 1:30 PM WASHING MACHINE LOADER Office Visit [facility] - Primary Care - [place] [address] [place] [phone] Iveth Guzman MD [address] [place] [address] Mass overlapping multiple quadrants of right breast (Primary Dx) Discharge Disposition: Discharged to home [...] Sign Reading Time Taken Comments Blood Pressure 122/84 05/02/2023 1:21 PM WASHING MACHINE LOADER Pulse 61 05/02/2023 1:21 PM WASHING MACHINE LOADER Temperature 36.6 ??C (97.8 ??F) 05/02/2023 1:21 PM CS T Respiratory Rate 20 05/02/2023 1:21 PM WASHING MACHINE LOADER Oxygen Saturation 99% 05/02/2023 1:21 PM WASHING MACHINE LOADER Inhaled Oxygen Concentration - - Weight 78.7 kg (173 lb 6.4 oz) 05/02/2023 1:21 P M WASHING MACHINE LOADER Height 154.9 cm (5' 1 ) 05/02/2023 1:21 PM WASHING MACHINE LOADER Body Mass Index 32.76 05/02/2023 1:21 PM WASHING MACHINE LOADER documented in this encounter Progress Notes * Salbador Mathias C - 05/02/2023 1:30 PM CST Pre-Visit Planning Documentation Main reason for visit? Transfer of care Any other concerns or questions that should be discussed at the visit? No Recent ED Visits and Hospitalizations 06/15/21 Cody Graf MD, RY Right upper quadrant abdominal pain ..., ED (DISCHARGE) 05/25/19 Taiwo Martinez, RECYCLING DIRECTOR, CONSTRUCTION TRADES CONTRACTOR, RY Influenza A ..., ED (DISCHARGE) 09/30/18 Patrice Hickman, GAB AVILAGIPRE Screen for colon cancer, Admission (Discharged) Health Maintenance Due Topic Date Due ??? Hepatitis C Virus (HCV) Screening Never done Orders due are pended? no Pre-Visit Planning Status: Complete- chart review only Communication Method Used to Complete PVP: Unable to Reach Pre-Visit Planning documented on 04/30/23 9:46 AM WASHING MACHINE LOADER by Salbador Mathias Transfer of care ING MACHINE LOADER * Iveth Guzman MD - 05/02/2023 1:30 PM CST Images from the original note were not included. Subjective: Subjective Patient is a 53-year-old female who underwent mastectomy in 2016 for breast cancer in the right breast. She had calcifications in the left breast and that was also removed. The left breast has a well-healed scar but the right wrist was noted to have firm nodules and marked erythema where the incisions from the mastectomy meet. There is no residual nipple tissue. Patient has not had a mammogram recently because she has had bilateral total mastectomy. Review of Systems Objective: Objective Physical Exam Vitals and nursing note reviewed. Constitutional: General: She is not in acute distress. Appearance: Normal appearance. She is well-developed. She is not diaphoretic. HENT: Head: Normocephalic and atraumatic. Right Ear: External ear normal. Left Ear: External ear normal. Nose: No congestion or rhinorrhea. Mouth/Throat: Mouth: Mucous membranes are moist. Pharynx: No posterior oropharyngeal erythema. Eyes: General: No scleral icterus. Right eye: No discharge. Left eye: No discharge. Conjunctiva/sclera: Conjunctivae normal. Pupils: Pupils are equal, round, and reactive to light. Neck: Trachea: No tracheal deviation. Cardiovascular: Rate and Rhythm: Normal rate and regular rhythm. Heart sounds: Normal heart sounds. No murmur heard. Pulmonary: Effort: Pulmonary effort is normal. No respiratory distress. Breath sounds: Normal breath sounds. No wheezing, rhonchi or rales. Chest: Chest wall: No tenderness. Abdominal: General: Bowel sounds are normal. There is no distension. Palpations: Abdomen is soft. Tenderness: There is no abdominal tenderness. There is no right CVA tenderness, left CVA tenderness, guarding or rebound. Musculoskeletal: General: Normal range of motion. Cervical back: Normal range of motion and neck supple. No rigidity or tenderness. Lymphadenopathy: Cervical: No cervical adenopathy. Skin: General: Skin is warm and dry. Findings: No rash. Comments: The left breast has well-healed scar and no evidence of nodularity or skin changes. The right breast has multiple palpable nodules with central erythema between the nodules. There is no active bleeding or drainage. The nodules are firm to palpation and about 1-1.5 cm each Neurological: General: No focal deficit present. Mental Status: She is alert and oriented to person, place, and time. Cranial Nerves: No cranial nerve deficit. Psychiatric: Mood and Affect: Mood normal. Behavior: Behavior normal. Thought Content: Thought content normal. Judgment: Judgment normal. Assessment and Plan Assessment & Plan See Diagnoses, Orders, Follow-up, and Instructions 1. Mass overlapping multiple quadrants of right breast Basic blood work will be obtained to evaluate liver and kidney function. Patient will have a blood count to look for infection or anemia. A diagnostic mammogram has been ordered to evaluate what may be going on in the right breast. The left breast will also be examined in case there is an occult malignancy there. - CMP (COMPREHENSIVE METABOLIC PANEL); Future - COMPLETE BLOOD COUNT (CBC) WITH DIFF; Future - FERNANDA DIAG BILATERAL DIGITAL W CAD W SILVINO; Future patient may well need to see a breast surgeon or hematology oncology physician for probable recurrent breast cancer. She has [facility] Jose R Pearson for Hematology Oncology. ING MACHINE LOADER documented in this encounter Plan of Treatment Upcoming Encounters Date Type Department Care Team (Late st Contact Info) Description 03/23/2024 1:00 PM WASHING MACHINE LOADER Appointment [facility] Cardiology Services [address] [place] [address] Jose R Pearson MD [address] [place] [address] Discharge Disposition: Discharged to home or Selfcare 03/23/2024 2:30 PM WASHING MACHINE LOADER Appointment [facility] CT [address] [place] [address] Jose R Pearson MD [address] [place] [address] Discharge Disposition: Discharged to home or Selfcare 03/30/2024 10:00 AM WASHING MACHINE LOADER Office Visit [facility] Oncology Services [address] [place] [address] Jose R Pearson MD [address] [place] [address] Discharge Disposition: Discharged to home or Selfcare 03/30/2024 10:30 AM WASHING MACHINE LOADER Lab [facility] Oncology Services [address] [place] [address] Discharge Disposition: Discharged to home or Selfcare 03/31/2024 1:00 PM WASHING MACHINE LOADER Clinical Support [facility] Services [address] [place] [address] Jose R Pearson MD [address] [place] [address] Discharge Disposition: Discharged to home or Selfcare 04/28/2024 1:30 PM WASHING MACHINE LOADER Clinical Support [facility] Services [address] [place] [address] Discharge Disposition: Discharged to home or Selfcare Scheduled Orders Name Type Priority Associated Diagnoses Orde r Schedule FERNANDA DIAG BILATERAL DIGITAL W CAD W SILVINO Imaging Less Than 2 weeks Mass overlapping multiple quadrants of right breast Expected: 07/30/2023, Expires: 05/14/2024 documented as of this encounter Goals Goal Patient Goal Type Associated Problems Recent Progress Patient-Stated? Author Exercise 3x per week (30 min per time) Exercise No Chica Saldana MD documented as of this encounter Results * (ABNORMAL) CMP (COMPREHENSIVE METABOLIC PANEL) (05/02/2023 1:52 PM WASHING MACHINE LOADER) SODIUM 140 136 - 145 mmol/L 05/02/2023 3:56 PM [facility] POTASSIUM 3.7 3.5 - 5.1 mmol/L 05/02/2023 3:56 PM [facility] CHLORIDE 106 98 - 107 mmol/L 05/02/2023 3:56 PM [facility] CO2, VENOUS 25 22 - 30 mmol/L 05/02/2023 3:56 PM [facility] ANION GAP 12.7 <18.0 mmol/L 05/02/2023 3:56 PM [facility] GLUCOSE 101(H) 70 - 99 mg/dL 05/02/2023 3:56 PM [facility] BUN 11 10 - 20 mg/dL 05/02/2023 3:56 PM [facility] CREATININE, BLOOD 0.80 0.60 - 1.00 mg/dL 05/02/2023 3:56 PM [facility] BUN/CREATININE RATIO 14 12 - 20 ratio 05/02/2023 3:56 PM [facility] TOTAL PROTEIN 7.4 6.3 - 8.2 g/dL 05/02/2023 3:56 PM [facility] ALBUMIN 4.4 3.5 - 5.0 g/dL 05/02/2023 3:56 PM [facility] A/G RATIO 1.5 1.0 - 2.2 05/02/2023 3:56 PM [facility] CALCIUM 9.6 8.7 - 10.5 mg/dL 05/02/2023 3:56 PM [facility] T BILI 0.6 0.2 - 1.2 mg/dL 05/02/2023 3:56 PM [facility] SGOT (AST) 28 5 - 34 U/L 05/02/2023 3:56 PM [facility] SGPT (ALT) 30 0 - 55 U/L 05/02/2023 3:56 PM [facility] ALKALINE PHOSPHATASE 92 40 - 150 U/L 05/02/2023 3:56 PM WASHING MACHINE LOADER [facility] IS THE PATIENT REQUIRED TO BE FASTING? No 05/02/2023 3:56 PM WASHING MACHINE LOADER [facility] GFR, ESTIMATED >60 >=60 05/02/2023 3:56 PM WASHING MACHINE LOADER [facility] Comment: Creatinine Clearance is the preferred criteria for selecting drug dose adjustments in renally impaired patients. ??The GFR is provided as additional pertinent clinical information. GFR is reported in mL/min/1.73 sq m. Calculation based on the Chronic Kidney Disease Epidemiology Collaboration (CKD- EPI) equation refit without adjustment for race. GFR, EST. >60 >=60 024 3:56 PM WASHING MACHINE LOADER [facility] GFR, EST. NONAFRICAN >60 >=60 05/02/2023 3:56 PM WASHING MACHINE LOADER [facility] Blood Venipuncture / Unknown 05/02/2023 1:52 PM WASHING MACHINE LOADER 05/02/2023 1:52 PM WASHING MACHINE LOADER us Iveth Guzman MD CHEMISTRY ORDERABLES Final Result [facility] [address] [place] [address] documented in this encounter Visit Diagnoses Diagnosis Mass overlapping multiple quadrants of right breast- Primary documented in this encounter Additional Health Concerns Assessment Noted Time PHQ-9 Depression Total Score: 0 04/01/19 20 9:00 AM WASHING MACHINE LOADER documented as of this encounter Care Teams Communications Media Professor Relationship Specialty Start Date End Date Iveth Guzman MD [address] [place] [address] PCP - General Family Medicine 05/02/23 Laurence Luque MD #[address] [address] [address] Consulting Physician General Surgery 02/01/15 Clemencia Bennett MD [address] [place] [address] Family Medicine 01/30/18 documented as of this encounter
--- OUTSIDE RECORDS SUMMARY | 2024-03-15 01:50 | XMS_ITS | Encounter Summary ---
Author Organization [facility] [employer] [facility] Care Team Providers Care Computer Recycling Worker Name Role Phone Laurence Luque MD Unavailable + [phone] Ronit Parish MD Primary Care Provider + [phone] Clemencia Bennett MD Unavailable [phone] Encounter Details Date Type Department Care Team (Latest Contact Info) Description 04/15/2022 Travel Social History Tobacco Use Types Packs/Day [...] st Contact Info) Description 03/23/2024 1:00 PM MEDICAL DEVICE SALES REPRESENTATIVE Appointment [facility] Cardiology Services [address] [place] [phone] Jose R Pearson MD [address] [place] [address] Discharge Disposition: Discharged to home or Selfcare 03/23/2024 2:30 PM MEDICAL DEVICE SALES REPRESENTATIVE Appointment [facility] [address] [place] [address] Jose R Pearson MD [address] [place] [address] Discharge Disposition: Discharged to home or Selfcare 03/30/2024 10:00 AM MEDICAL DEVICE SALES REPRESENTATIVE Office Visit [facility] Oncology Services [address] [place] [address] Jose R Pearson MD [address] [place] [address] Discharge Disposition: Discharged to home or Selfcare 03/30/2024 10:30 AM MEDICAL DEVICE SALES REPRESENTATIVE Lab [facility] Oncology Services [address] [place] [address] Discharge Disposition: Discharged to home or Selfcare 03/31/2024 1:00 PM MEDICAL DEVICE SALES REPRESENTATIVE Clinical Support [facility] Oncology Services [address] [place] [phone] Jose R Pearson MD [address] [place] [address] Discharge Disposition: Discharged to home or Selfcare 04/28/2024 1:30 PM MEDICAL DEVICE SALES REPRESENTATIVE Clinical Support [facility] Oncology Services [address] [place] [phone] Discharge Disposition: Discharged to home or Selfcare documented as of this encounter Visit Diagnoses Not on filedocumented in this encounter Additional Health Concerns Assessment Noted Time PHQ-9 Depression Total Score: 0 04/01/19 20 9:00 AM MEDICAL DEVICE SALES REPRESENTATIVE documented as of this encounter Care Teams Computer Recycling Worker Relationship Specialty Start Date End Date Ronit Parish MD [address] [address] PCP - General Family Medicine 03/01/15 04/15/22 Laurence Luque MD #[address] [phone] Consulting Physician General Surgery 02/01/15 Clemencia Bennett MD [address] [place] [address] Family Medicine 01/30/18 documented as of this encounter
--- OUTSIDE RECORDS SUMMARY | 2024-03-15 01:50 | XMS_ITS | Encounter Summary ---
Author Organization [facility] Address [address] [place] [address] Phone Care Team Providers Care Manager Office Services Name Role Phone Laurence Luque MD Unavailable + [phone] Clemencia Bennett MD Unavailable [phone] Chica Saldana MD Primary Care Provider + [phone] Reason for Referral * Medical Care (Routine) - Closed Specialty Diagnoses / Procedures Referred By Martin laguna Referred To Contact Diagnoses Anaphylaxis, sequela Hives Procedures OFFICE/OP NEW LVL 3 LOW MDM/30-44 MIN OFFICE/OP EST LVL 3 LOW MDM/20-29 MIN Chica Saldana MD Phone: tel: fax: Referral ID Status Reason Start Date Expiration Date Visits Re quested Visits Authorized [id number] Closed 10/14/2022 1 11 Scheduling Instructions Angie is being referred to medicare sales executive or other specialist in patient's insurance network for hives and anaphylactic reaction See below for Angie's current medications, allergies and problem list. CURRENT MEDS: Current Outpatient Medications: atorvastatin (LIPITOR) 10 MG Tablet, Take 1 Tablet by mouth daily., Disp: 90 Tablet, Rfl: 3 EPINEPHrine (EPIPEN) 0.3 MG/0.3ML Solution Auto-injector, 0.3 mL by Intramuscular route once as needed for Anaphylaxis for up to 60 days., Disp: 1 mL, Rfl: 2 methylPREDNISolone (Medrol) 4 MG Tablet Therapy Pack, Use as per instructions on package., Disp: 21 Tablet, Rfl: 0 metoprolol tartrate (LOPRESSOR) 25 MG Tablet, Take 1 tablet by mouth twice daily, Disp: 180 Tablet, Rfl: 0 Multiple Vitamin (MULTI-VITAMIN PO), Take 1 Tab by mouth daily., Disp: , Rfl: triamcinolone (KENALOG) 0.1 % Cream, Application Site:apply sparingly bid to affected area, Disp: 45 g, Rfl: 2 Current Facility-Administered Medications: methylPREDNISolone sodium succinate (Solu-MEDROL) injection 125 mg, 125 mg, Intravenous, Once, Chica Saldana MD ALLERGIES: No Known Allergies PROBLEM LIST: Patient Active Problem List: Mitral valve prolapse Essential hypertension Gastroesophageal reflux disease Cancer of overlapping sites of right breast (HCC) Obesity (BMI 30.0-34.9) History of bilateral mastectomy Allergic rhinitis Pulmonary nodule Hyperlipidemia IFG (impaired fasting glucose) Reason for Visit * Reason Comments Hyperlipidemia 6 month f/u Encounter Details Date Type Department Care Team (Latest Contact Info) Description 10/14/2022 4:00 PM CDT Office Visit [facility] - [place] [address] [place] [address] Chica Saldana MD [address] [place] [address] Anaphylaxis, sequela (Primary Dx); Hives; Hyperlipidemia, unspecified hyperlipidemia type Discharge Disposition: Discharged to home or Selfcare [...] PM CDT documented as of this encounter Last Filed Vital Signs Vital Sign Reading Time Taken Comments Blood Pressure 138/84 10/14/2022 3:53 PM CDT Pulse 63 10/14/2022 3:53 PM CDT Temperature 36.5 ??C (97.7 ??F) 10/14/2022 3:53 PM CD T Respiratory Rate 20 10/14/2022 3:53 PM CDT Oxygen Saturation 98% 10/14/2022 3:53 PM CDT Inhaled Oxygen Concentration - - Weight 72.8 kg (160 lb 9.6 oz) 10/14/2022 3:53 P M CDT Height 154.9 cm (5' 1 ) 10/14/2022 3:53 PM CDT Body Mass Index 30.35 10/14/2022 3:53 PM CDT documented in this encounter Patient Instructions * Attachments The following attachments cannot be sent through Care Everywhere. * Preventing High Cholesterol (Finnish) * Anaphylactic Reaction Adult [id number] (Finnish) documented in this encounter Progress Notes * Mel Villalpnado, RMA - 10/14/2022 4:00 PM CDT Angie Reed, 52 y.o., female is here for No chief complaint on file. Medication Refills: Patient reports/denies need for medication refills. Orders Pended: no Requested Prescriptions No prescriptions requested or ordered in this encounter Home Medications Medication Sig Start Date End Date Taking? Authorizing Provider atorvastatin (LIPITOR) 10 MG Tablet Take 1 Tablet by mouth daily. 04/19/22 Chica Saldana MD metoprolol tartrate (LOPRESSOR) 25 MG Tablet Take 1 tablet by mouth twice daily 07/17/22 Chica Saldana MD Multiple Vitamin (MULTI-VITAMIN PO) Take 1 Tab by mouth daily. Provider, MD Ernesto There are no discontinued [...] C Virus (HCV) Screening Never done Orders Pended: no The following BPA's have been addressed with the patient today: N/A * Chica Saldana MD - 10/14/2022 4:00 PM CDT HPI: Patient is a 52 y.o. female who presents today for Hyperlipidemia (6 month f/u) Patient is here for her cholesterol of 227, hdL is 113 and LDL is in the 80s. While speaking with her she also complains of hives on her legs and arms and states that she had a piece of crap the other day and her throat swelled up and she could not speak. She thinks she has food allergies being to fish, mangoes and possibly other foods. Health Maintenance: Health Maintenance Due Topic Date Due ??? Hepatitis C Virus (HCV) Screening Never done Medications: Current Outpatient Medications Medication Sig Dispense Refill ??? atorvastatin (LIPITOR) 10 MG Tablet Take 1 Tablet by mouth daily. 90 Tablet 3 ??? EPINEPHrine (EPIPEN) 0.3 MG/0.3ML Solution Auto-injector 0.3 mL by Intramuscular route once as needed for Anaphylaxis for up to 60 days. 1 mL 2 ??? methylPREDNISolone (Medrol) 4 MG Tablet Therapy Pack Use as per instructions on package. 21 Tablet 0 ??? metoprolol tartrate (LOPRESSOR) 25 MG Tablet Take 1 tablet by mouth twice daily 180 Tablet 0 ??? Multiple Vitamin (MULTI-VITAMIN PO) Take 1 Tab by mouth daily. ??? triamcinolone (KENALOG) 0.1 % Cream Application Site:apply sparingly bid to affected area 45 g 2 No current facility-administered medications for this visit. Lab Results: n/a Review of Systems Constitutional: Negative. Patient just joined weight watchers VIRGIE: Negative. Eyes: Negative. Respiratory: Negative. Cardiovascular: Negative. Gastrointestinal: Negative. Genitourinary: Negative. Musculoskeletal: Negative. Skin: Positive for itching and rash. Hives bilateral arms and legs patient states that these come and go and are itchy and red Neurological: Negative. Endo/Heme/Allergies: Negative. Psychiatric/Behavioral: Negative. All other systems reviewed and are negative. Vitals: 10/14/22 1553 BP: 138/84 Pulse: 63 Resp: 20 Temp: 97.7 ??F (36.5 ??C) TempSrc: Temporal SpO2: 98% Weight: 160 lb 9.6 oz (72.8 kg) Height: 5' 1 (1.549 m) Body mass index is 30.35 kg/m??. Physical Exam Vitals and nursing note reviewed. Constitutional: Appearance: Normal appearance. HENT: Head: Normocephalic and atraumatic. Right Ear: External ear normal. Left Ear: External ear normal. Nose: Nose normal. Mouth/Throat: Mouth: Mucous membranes are moist. Pharynx: Oropharynx is clear. Eyes: Conjunctiva/sclera: Conjunctivae normal. Cardiovascular: Rate and Rhythm: Normal rate. Pulmonary: Effort: Pulmonary effort is normal. Abdominal: Palpations: Abdomen is soft. Skin: General: Skin is warm and dry. Findings: Erythema, lesion and rash present. Comments: Patient has hives varying in size from 0.5-10 centimetres bilateral upper legs and arms. Neurological: General: No focal deficit present. Mental Status: She is alert and oriented to person, place, and time. Psychiatric: Mood and Affect: Mood normal. Behavior: Behavior normal. Past, family, surgical, and social history reviewed and updated in the chart. Assessment/Plan: Diagnoses and all orders for this visit: Anaphylaxis, sequela - triamcinolone (KENALOG) 0.1 % Cream; Application Site:apply sparingly bid to affected area - EPINEPHrine (EPIPEN) 0.3 MG/0.3ML Solution Auto-injector; 0.3 mL by Intramuscular route once as needed for Anaphylaxis for up to 60 days. - Discontinue: methylPREDNISolone sodium succinate (Solu-MEDROL) injection 125 mg - methylPREDNISolone (Medrol) 4 MG Tablet Therapy Pack; Use as per instructions on package. - EXTERNAL ALLERGY REFERRAL; Future - methylPREDNISolone acetate (DEPO-MEDROL) injection 80 mg Hives - triamcinolone (KENALOG) 0.1 % Cream; Application Site:apply sparingly bid to affected area - Discontinue: methylPREDNISolone sodium succinate (Solu-MEDROL) injection 125 mg - methylPREDNISolone (Medrol) 4 MG Tablet Therapy Pack; Use as per instructions on package. - EXTERNAL ALLERGY REFERRAL; Future - methylPREDNISolone acetate (DEPO-MEDROL) injection 80 mg Hyperlipidemia, unspecified hyperlipidemia type Other orders - Insert/Maintain Peripheral IV; Standing - Insert/Maintain Peripheral IV We have discussed the low-cholesterol diet at this point I am not going to treat her cholesterol rosario is on a weight loss program and has a low LDL, with a high HDL Patient verbalizes understanding and agrees with plan of care as noted above. New medication discussed with patient and family, including action of medication, potential side effects, interactions, and consequences for not taking it. Patient states understanding of new medication instructions. An After Visit Summary with personalized patient education was printed and given to the patient. Documentation for this visit on 10/14/22 was completed using a template. I have seen and examined the patient. Everything documented was personally performed at this visit with the necessary additions, deletions and changes made as appropriate. * Mel Villalpando RMA - 10/14/2022 4:00 PM CDT Angie presents for one time injection of Depo Medrol for diagnosis of hives per order of ated 10/14/22. Patient tolerated injection well without incident. See medication administration activity for details documented in this encounter Plan of Treatment Upcoming Encounters Date Type Department Care Team (Late st Contact Info) Description 03/23/2024 1:00 PM PLANT CLERK Appointment [facility] Cardiology Services [address] [place] [address] Jose R Pearson MD [address] [place] [address] Discharge Disposition: Discharged to home or Selfcare 03/23/2024 2:30 PM PLANT CLERK Appointment [facility] [address] [place] [address] Jose R Pearson MD [address] [place] [address] Discharge Disposition: Discharged to home or Selfcare 03/30/2024 10:00 AM PLANT CLERK Office Visit [facility] Oncology Services [address] [place] [address] Jose R Pearson MD [address] [place] [address] Discharge Disposition: Discharged to home or Selfcare 03/30/2024 10:30 AM PLANT CLERK Lab [facility] [address] [place] [address] Discharge Disposition: Discharged to home or Selfcare 03/31/2024 1:00 PM PLANT CLERK Clinical Support [facility] Oncology Services [address] [place] [phone] Jose R Pearson MD [address] [place] [address] Discharge Disposition: Discharged to home or Selfcare 04/28/2024 1:30 PM PLANT CLERK Clinical Support [facility] Oncology [facility] [address] [place] [phone] Discharge Disposition: Discharged to home or Selfcare Scheduled Referrals Name Type Priority Associated Diagnoses Orde r Schedule EXTERNAL ALLERGY REFERRAL Outpatient Referral Routine Anaphylaxis, sequela Hives Expected: 10/14/2022, Expires: 10/15/2023 documented as of this encounter Goals Goal Patient Goal Type Associated Problems Recent Progress Patient-Stated? Author Exercise 3x per week (30 min per time) Exercise No Chica Saldana MD documented as of this encounter Visit Diagnoses Diagnosis Anaphylaxis, sequela- Primary Hives Urticaria, unspecified Hyperlipidemia, unspecified hyperlipidemia type documented in this encounter Administered Medications Inactive Administered Medications - up to 3 most recent administrations Medication Order MAR Action Action Date Dose Rate Site methylPREDNISolone acetate (DEPO-MEDROL) injection 80 mg 80 mg, Intramuscular, ONCE, 1 dose, On Fri10/14/22 at 1700Indications:Anaphyl axis, sequela,Hives Given 10/14/2022 4:29 PM CDT 80 mg Right Vastus Lateralis documented in this encounter Additional Health Concerns Assessment Noted Time PHQ-9 Depression Total Score: 0 04/01/19 20 9:00 AM PLANT CLERK documented as of this encounter Care Teams Manager Office Services Relationship Specialty Start Date End Date Chica Saldana MD [address] [place] [address] PCP - General Family Medicine 04/16/22 05/01/23 Laurence Luque MD [address] [phone] Consulting Physician General Surgery 02/01/15 Clemencia Bennett MD [address] [place] [address] Family Medicine 01/30/18 documented as of this encounter
--- OUTSIDE RECORDS SUMMARY | 2024-03-15 01:50 | XMS_ITS | Encounter Summary ---
Author Organization [facility] Address [address] [place] [address] Phone Care Team Providers Care Advanced Manufacturing Vice President Name Role Phone Laurence Luque MD Unavailable [phone] Clemencia Bennett MD Unavailable [phone] Iveth Guzman MD Primary Care Provider [phone] Reason for Referral * Radiology Services (Routine) - Closed Specialty Diagnoses / Procedures Referred By Contac t Referred To Contact Radiology Diagnoses History of breast cancer Procedures US GUIDED LYMPH NODE BIOPSY-RT Iveth Guzman MD [address] [place] [address] Phone: tel: fax: Referral ID Status Reason Start Date Expiration Date Visits Re quested Visits Authorized [id number] Closed 08/19/2023 1 1 Reason for Visit * Radiology Services (Routine) - Closed Specialty Diagnoses / Procedures Referred By Contezekiel laguna Referred To Contact Radiology Diagnoses History of breast cancer Procedures US GUIDED LYMPH NODE BIOPSY-RT Iveth Guzman MD [address] [place] [address] Phone: tel: fax: Referral ID Status Reason Start Date Expiration Date Visits Re quested Visits Authorized [id number] Closed 08/19/2023 1 1 Encounter Details Date Type Department Care Team (Latest Contact Info) Description 08/20/2023 9:15 AM CDT - 08/20/2023 11:59 PM CDT Hospital Encounter [facility] Ultrasound [address] [place] [address] Iveth Guzman MD [address] [place] [address] Discharge Disposition: Discharged to home or Selfcare [...] Sign Reading Time Taken Comments Blood Pressure 142/87 08/20/2023 9:40 AM CDT Pulse - - Temperature - - Respiratory Rate 20 08/20/2023 9:40 AM CDT Oxygen Saturation 96% 08/20/2023 9:40 AM CDT Inhaled Oxygen Concentration - - Weight - - Height - - Body Mass Index - - documented in this encounter Medications at Time [...] Notes * Iveth Guzman MD - 08/20/2023 10:00 AM CDT Operation note for obtaining the biopsy of the right mastectomy site. (Message to patient not needed.) * Iveth Guzman MD - 08/20/2023 10:00 AM CDT Unfortunately the cancer has come back and patient will need to see an oncologist to help arrange for chemotherapy, may be radiation therapy or surgery. documented in this encounter Miscellaneous Notes * Interdisciplinary - Magui Rai RN - 08/20/2023 10:00 AM CDT Pt. Transported to [facility] . Procedure explained to pt. to see pt. And explain procedure, understanding stated Consent formed signed. Positioned onto table on back * Interdisciplinary - Magui Rai RN - 08/20/2023 10:00 AM CDT Procedure completed. 2 areas covered with 2x2 and tegaderm dressing. Discharge instructions reviewed with understanding stated. Ready for discharge with family documented in this encounter Plan of Treatment Upcoming Encounters Date Type Department Care Team (Late st Contact Info) Description 03/23/2024 1:00 PM TENNIS INSTRUCTOR Appointment [facility] Cardiology Services [address] [place] [address] Jose R Pearson MD [address] [place] [address] Discharge Disposition: Discharged to home or Selfcare 03/23/2024 2:30 PM TENNIS INSTRUCTOR Appointment [facility] [address] [place] [address] Jose R Pearson MD [address] [place] [address] Discharge Disposition: Discharged to home or Selfcare 03/30/2024 10:00 AM TENNIS INSTRUCTOR Office Visit [facility] Oncology Services [address] [place] [address] Jose R Pearson MD [address] [place] [address] Discharge Disposition: Discharged to home or Selfcare 03/30/2024 10:30 AM TENNIS INSTRUCTOR Lab [facility] Oncology Services [address] [place] [address] Discharge Disposition: Discharged to home or Selfcare 03/31/2024 1:00 PM TENNIS INSTRUCTOR Clinical Support [facility] Oncology Services [address] [place] [address] Jose R Pearson MD [address] [place] [address] Discharge Disposition: Discharged to home or Selfcare 04/28/2024 1:30 PM TENNIS INSTRUCTOR Clinical Support [facility] Oncology Services [address] [place] [address] Discharge Disposition: Discharged to home or Selfcare documented as of this encounter Goals Goal Patient Goal Type Associated Problems Recent Progress Patient-Stated? Author Exercise 3x per week (30 min per time) Exercise Chica Louis MD documented as of this encounter Procedures Procedure Name Priority Date/Time Associated Diagnosis Comments US GUIDED LYMPH NODE BIOPSY-RT Routine 08/20/2023 10:40 AM CDT History of breast cancer PATHOLOGY SURGICAL Routine 08/20/2023 10 :20 AM CDT History of breast cancer documented in this encounter Results * US GUIDED LYMPH [...] DESCRIPTION: ?? US GUIDED LYMPH NODE BIOPSY-RT; [facility] US GUIDANCE AND CORE BREAST [...] AM T: ??08/20/2023 10:54 AM Report ID: [id number] Reading Location: ??[id number] THIS IS AN ELECTRONICALLY VERIFIED FINAL REPORT 08/26/2023 9:12 AM ??Addendum Electronically signed by Jony Harding M.D. MZ: LESVIA D: ??08/26/2023 9:12 AM T: ??08/26/2023 9:12 AM Report ID: [id number] Reading Location: ??[id number] Impressions 08/20/2023 10:57 AM CDT IMPRESSION: Successful ultrasound-guided biopsy of suspicious right chest wall/mastectomy site mass and suspicious right axillary lymph node. ??Pathology is pending. ??An addendum will be issued when pathology results are available.. Narrative 08/20/2023 10:57 AM CDT EXAM DESCRIPTION: ?? US GUIDED LYMPH NODE BIOPSY-RT; [facility] US GUIDANCE AND CORE BREAST [...] AM T: ??08/20/2023 10:54 AM Report ID: [id number] Reading Location: ??[id number] Procedure Note Jony Harding MD - 08/20/2023 EXAM DESCRIPTION: US GUIDED LYMPH NODE BIOPSY-RT; [facility] US GUIDANCE AND CORE BREAST [...] Jony Harding M.D. MZ: LESVIA Report ID: [id number] Reading Location: [id number] IMPRESSION: Successful ultrasound-guided biopsy of suspicious right chest wall/mastectomy site mass and suspicious right axillary lymph node. Pathology is pending. An addendum will be issued when pathology results are available.. Iveth Guzman MD [facility] ORDERABLES Edited R esult - Final * Pathology Surgical (08/20/2023 10:20 AM CDT) Case Report Surgical Pathology Report ? Case: [id number] ? Authorizing Provider: ??Iveth Guzman MD ?Collected: ? 08/20/2023 10:02 AM ? Ordering Location: ? [facility] ? Received: ?08/20/2023 11:00 AM ? [facility] ? Ultrasound ? Pathologist: ? José, Giancarlo ? MD Vish ? Specimens: ?? A) - Breast, Right Breast UIQ, 7 cm from center area 2, 4 passes, 1002, 0 min to fix, ? SB/Zei, 6/5/24 ? B) - Axilla, Right Axilla Bx, 4 passes, 1020, 0 min to fix, 6/5/24, SB/Zei ? 08/22/2023 8:50 AM CDT [facility] Amendment Hormone receptor studies Estrogen receptors > 90% Strong Positive Progesterone receptors > 90% Strong Positive Ki 67 80% Strong High HER2 pending 08/22/2023 8:50 AM CDT [facility] FINAL DIAGNOSIS A. Breast, right upper inner quadrant, 7 [...] identified - Lymphovascular invasion: Not identified - Microcalcificatio ns: Not identified B. Axilla, right, ultrasound guided needle biopsy: - Metastatic adenocarcinoma consistent with breast primary - Extensive areas of necrosis are observed. 08/22/2023 8:50 AM CDT [facility] Pre-Operative Diagnosis Abnormal US of breast tissue 08/22/2023 8:50 AM CDT [facility] Gross Description A. Right Breast UIQ, 7 cm from center area 2, 4 passes, 1002, 0 min to fix, SB/Zei, 08/20/23 The specimen presents in two formalin containers for gross and microscopic examination labeled with the patient's name, Angie Reed. Part A is designated as right breast biopsy, upper inner quadrant, 7 cm from center area 2, 4 passes, 1002 am on August 20, 2023, 0 minutes to fixation. The specimen consists of four pieces of tissue ranging from bright yellow to dark red to white-hargrove. All four cores have a rubbery-firm area. These measure from 1 cm up to 2 cm in greatest dimension. All submitted cassette A1. Total time of fixation is 11 hours, 44 minutes. B. Right Axilla Bx, 4 passes, 1020, 0 min to fix, 08/20/23, SB/Zei Part B is designated as right axilla, 4 passes, 1020 am on August 20, 2023, 0 minutes to fixation. The specimen consists of four core biopsies. They are yellow-hargrove and measure 0.4 cm up to 1 cm in greatest dimension. All submitted cassette B1. KS/sb 08/22/2023 8:50 AM CDT [facility] Microscopic Description Microscopic examination was performed which supports the final diagnosis. All control tissues stained appropriately. 08/22/2023 8:50 AM CDT [facility] Tissue AXILLARY REGION STRUCTURE / Unknown 08/20/2023 10:20 AM CDT 08/20/2023 11:02 AM CDT Tissue specimen (specimen) BREAST STRUCTURE / Unknown 08/20/2023 10:02 AM CDT 08/20/2023 11:00 AM CDT us Iveth Guzman MD PATHOLOGY/CYTOLOGY ORDERAB LES Final Result [facility] [address] [place] [address] documented in this encounter Visit Diagnoses Diagnosis History of breast cancer Personal history of malignant neoplasm of breast documented in this encounter Administered Medications Inactive Administered Medications - up to 3 most recent administrations Medication Order MAR Action Action Date Dose Rate Site lidocaine 1 % injection 10 mL 10 mL, Other, ONCE, 1 dose, On Fri08/20/23 at 1000 Given 08/20/2023 10:00 AM CDT 10 mL documented in this encounter Additional Health Concerns Assessment Noted Time PHQ-9 Depression Total Score: 0 04/01/19 20 9:00 AM TENNIS INSTRUCTOR documented as of this encounter Care Teams Advanced Manufacturing Vice President Relationship Specialty Start Date End Date Iveth Guzman MD [address] [place] [address] PCP - General Family Medicine 05/02/23 Laurence Luque MD [address] [address] Consulting Physician General Surgery 02/01/15 Clemencia Bennett MD [address] [place] [address] Family Medicine 01/30/18 documented as of this encounter
--- OUTSIDE RECORDS SUMMARY | 2024-03-15 01:50 | XMS_ITS | Encounter Summary ---
Author Organization [facility] Address [address] [place] [address] Phone Care Team Providers Care Offset Lithographic Press Setter Name Role Phone Laurence Luque MD Unavailable + [phone] Clemencia Bennett MD Unavailable [phone] Chica Saldana MD Primary Care Provider + [phone] Encounter Details Date Type Department Care Team (Late st Contact Info) Description 04/30/2023 Telephone [facility] [address] [place] [address] Iveth Guzman MD [address] [place] [address] Social History Tobacco Use Types [...] encounter Miscellaneous Notes * Telephone Encounter - Salbador Mathias - 04/30/2023 9:47 AM CST Transfer of care AULIC BARKER OPERATOR documented in this encounter Plan of Treatment Upcoming Encounters Date Type Department Care Team (Late st Contact Info) Description 03/23/2024 1:00 PM HYDRAULIC BARKER OPERATOR Appointment [facility] Cardiology Services [address] [place] [address] Jose R Pearson MD [address] [place] [address] Discharge Disposition: Discharged to home or Selfcare 03/23/2024 2:30 PM HYDRAULIC BARKER OPERATOR Appointment [facility] [address] [place] [address] Jose R Pearson MD [address] [place] [address] Discharge Disposition: Discharged to home or Selfcare 03/30/2024 10:00 AM HYDRAULIC BARKER OPERATOR Office Visit [facility] Oncology Services [address] [place] [address] Jose R Pearson MD [address] [place] [address] Discharge Disposition: Discharged to home or Selfcare 03/30/2024 10:30 AM HYDRAULIC BARKER OPERATOR Lab [facility] Oncology Services [address] [place] [address] Discharge Disposition: Discharged to home or Selfcare 03/31/2024 1:00 PM HYDRAULIC BARKER OPERATOR Clinical Support [facility] Oncology Services [address] [place] [address] Jose R Pearson MD [address] [place] [address] Discharge Disposition: Discharged to home or Selfcare 04/28/2024 1:30 PM HYDRAULIC BARKER OPERATOR Clinical Support [facility] Oncology Services [address] [place] [address] Discharge Disposition: Discharged to home or Selfcare [...] Total Score: 0 04/01/19 20 9:00 AM HYDRAULIC BARKER OPERATOR documented as of this encounter Care Teams Offset Lithographic Press Setter Relationship Specialty Start Date End Date Chica Saldana MD [address] [place] [address] PCP - General Family Medicine 04/16/22 05/01/23 Laurence Luque MD [address] [address] Consulting Physician General Surgery 02/01/15 Clemencia Bennett MD [address] [place] [address] Family Medicine 01/30/18 documented as of this encounter
--- OUTSIDE RECORDS SUMMARY | 2024-03-15 01:50 | XMS_ITS | Encounter Summary ---
Author Organization [facility] [employer] [facility] Care Team Providers Care Resident Caregiver Name Role Phone Laurence Luque MD Unavailable + [phone] Clemencia Bennett MD Unavailable [phone] Chica Saldana MD Primary Care Provider + [phone] Encounter Details Date Type Department Care Team (Latest Contact Info) Description 04/16/2022 Travel Social History Tobacco Use Types Packs/Day [...] Coronavirus/COVID-19? No / Unsure 04/16/2022 2:03 PM FACE BOSS documented as of this encounter Plan of Treatment Upcoming Encounters Date Type Department Care Team (Late st Contact Info) Description 03/23/2024 1:00 PM FACE BOSS Appointment [facility] Cardiology Services [address] [place] [address] Jose R Pearson MD [address] [place] [address] Discharge Disposition: Discharged to home or Selfcare 03/23/2024 2:30 PM FACE BOSS Appointment [facility] [address] [place] [address] Jose R Pearson MD [address] [place] [address] Discharge Disposition: Discharged to home or Selfcare 03/30/2024 10:00 AM FACE BOSS Office Visit [facility] Oncology Services [address] [place] [address] Jose R Pearson MD [address] [place] [address] Discharge Disposition: Discharged to home or Selfcare 03/30/2024 10:30 AM FACE BOSS Lab [facility] Oncology Services [address] [place] [address] Discharge Disposition: Discharged to home or Selfcare 03/31/2024 1:00 PM FACE BOSS Clinical Support [facility] Oncology Services [address] [place] [address] Jose R Pearson MD [address] [place] [address] Discharge Disposition: Discharged to home or Selfcare 04/28/2024 1:30 PM FACE BOSS Clinical Support [facility] Oncology Services [address] [place] [address] Discharge Disposition: Discharged to home or Selfcare documented as of this encounter Goals Goal Patient Goal Type Associated Problems Recent Progress Patient-Stated? Author Exercise 3x per week (30 min per time) Exercise Chica Louis MD documented as of this encounter Visit Diagnoses Not on filedocumented in this encounter Additional Health Concerns Assessment Noted Time PHQ-9 Depression Total Score: 0 04/01/19 20 9:00 AM FACE BOSS documented as of this encounter Care Teams Resident Caregiver Relationship Specialty Start Date End Date Chica Saldana MD [address] [place] [address] PCP - General Family Medicine 04/16/22 05/01/23 Laurence Luque MD [address] [phone] Consulting Physician General Surgery 02/01/15 Clemencia Bennett MD [address] [place] [address] Family Medicine 01/30/18 documented as of this encounter
--- OUTSIDE RECORDS SUMMARY | 2024-03-15 01:51 | XMS_ITS | Encounter Summary ---
Author Organization [facility] [employer] [facility] Care Team Providers Care General Foreman Name Role Phone Laurence Luque MD Unavailable + [phone] Ronit Parish MD Primary Care Provider + [phone] Clemencia Bennett MD Unavailable [phone] Encounter Details Date Type Department Care Team (Latest Contact Info) Description 03/24/2019 Travel Social History Tobacco Use Types Packs/Day Years Used Date Smoking Tobacco: Never Smokeless Tobacco: Never Alcohol Use Standard Drinks/Week Comments Yes 0 (1 standard drink = 0.6 oz pur e alcohol) rarely PHQ-2 Answer Date Recorded PHQ-2 Score 0 11/28/2018 Comments No Sex and Gender Information Value Date Recorded Sex Assigned at Not on file Legal Sex Female 8:38 PM CDT Gender Identity Not on file Sexual Orientation Not on file documented as of this encounter Plan of Treatment Upcoming Encounters Date Type Department Care Team (Late st Contact Info) Description 03/23/2024 1:00 PM PLASTIC PARTS FABRICATOR TRIMMER [facility] Services [address] [place] [address] Jose R Pearson MD [address] [place] [address] Discharge Disposition: Discharged to home or Selfcare 03/23/2024 2:30 PM PLASTIC PARTS FABRICATOR TRIMMER [facility] [address] [place] [address] Jose R Pearson MD [address] [place] [address] Discharge Disposition: Discharged to home or Selfcare 03/30/2024 10:00 AM PLASTIC PARTS FABRICATOR TRIMMER Office Visit [facility] Oncology Services [address] [place] [address] Jose R Pearson MD [address] [place] [address] Discharge Disposition: Discharged to home or Selfcare 03/30/2024 10:30 AM PLASTIC PARTS FABRICATOR TRIMMER Lab [facility] Oncology Services [address] [place] [phone] Discharge Disposition: Discharged to home or Selfcare 03/31/2024 1:00 PM PLASTIC PARTS FABRICATOR TRIMMER Clinical Support [facility] Oncology Services [address] [place] [address] Jose R Pearson MD [address] [place] [address] Discharge Disposition: Discharged to home or Selfcare 04/28/2024 1:30 PM PLASTIC PARTS FABRICATOR TRIMMER Clinical Support [facility] Oncology Services [address] [place] [address] Discharge Disposition: Discharged to home or Selfcare documented as of this encounter Visit Diagnoses Not on filedocumented in this encounter Additional Health Concerns Assessment Noted Time PHQ-9 Depression Total Score: 0 07/31/19 19 9:00 AM CDT documented as of this encounter Care Teams General Foreman Relationship Specialty Start Date End Date Ronit Parish MD [facility] [address] [address] PCP - General Family Medicine 03/01/15 04/15/22 Laurence Luque MD [address] [address] Consulting Physician General Surgery 02/01/15 Clemencia Bennett MD [address] [place] [address] Family Medicine 01/30/18 documented as of this encounter
--- OUTSIDE RECORDS SUMMARY | 2024-03-15 01:51 | XMS_ITS | Encounter Summary ---
Author Organization [facility] [employer] [facility] Care Team Providers Care Metallurgical Laboratory Assistant Name Role Phone Laurence Luque MD Unavailable + [phone] Ronit Parish MD Primary Care Provider + [phone] Clemencia Bennett MD Unavailable [phone] Encounter Details Date Type Department Care Team (Latest Contact Info) Description 07/10/2020 Travel Social History Tobacco Use Types Packs/Day [...] Exposure Response Date Recorded In the last month, have you been in contact with someone who was confirmed or suspected to have Coronavirus / COVID-19? No / Unsure 07/10/2020 11:48 AM CDT documented as of this encounter Plan of Treatment Upcoming Encounters Date Type Department Care Team (Late st Contact Info) Description 03/23/2024 1:00 PM MONEY LAUNDERING INVESTIGATOR [facility] [address] [place] [phone] Jose R Pearson MD [address] [place], [place] [phone] Discharge Disposition: Discharged to home or Selfcare 03/23/2024 2:30 PM MONEY LAUNDERING INVESTIGATOR Appointment [facility] [address] [facility] [place] [address] Jose R Pearson MD [address] [place] [address] Discharge Disposition: Discharged to home or Selfcare 03/30/2024 10:00 AM MONEY LAUNDERING INVESTIGATOR Office Visit [facility] Oncology Services [address] [place] [address] Jose R Pearson MD [address] [place] [address] Discharge Disposition: Discharged to home or Selfcare 03/30/2024 10:30 AM MONEY LAUNDERING INVESTIGATOR [facility] [address] [place] [address] Discharge Disposition: Discharged to home or Selfcare 03/31/2024 1:00 PM MONEY LAUNDERING INVESTIGATOR Clinical Support [facility] Oncology Services [address] [place] [address] Jose R Pearson MD [address] [place] [address] Discharge Disposition: Discharged to home or Selfcare 04/28/2024 1:30 PM MONEY LAUNDERING INVESTIGATOR Clinical Support [facility] Oncology Services [address] [place] [address] Discharge Disposition: Discharged to home or Selfcare documented as of this encounter Visit Diagnoses Not on filedocumented in this encounter Additional Health Concerns Assessment Noted Time PHQ-9 Depression Total Score: 0 04/01/19 9:00 AM MONEY LAUNDERING INVESTIGATOR documented as of this encounter Care Teams Metallurgical Laboratory Assistant Relationship Specialty Start Date End Date Ronit Parish MD #[address] [address] PCP - General Family Medicine 03/01/15 04/15/22 Laurence Luque MD #[address] [phone] Consulting Physician General Surgery 02/01/15 Clemencia Bennett MD [address] [place], [place] [phone] Family Medicine 01/30/18 documented as of this encounter
--- OUTSIDE RECORDS SUMMARY | 2024-03-15 01:51 | XMS_ITS | Encounter Summary ---
Author Organization [facility] [email or web address] [facility] Care Team Providers Care Direct Care Supervisor Name Role Phone Laurence Luque MD Unavailable + [phone] Ronit Parish MD Primary Care Provider + [phone] Clemencia Bennett MD Unavailable [phone] Encounter Details Date Type Department Care Team (Latest Contact Info) Description 04/09/2019 Travel Social History Tobacco Use Types Packs/Day [...] st Contact Info) Description 03/23/2024 1:00 PM CURRICULUM COORDINATOR [facility] [address] [place] [address] Jose R Pearson MD [address] [place] [address] Discharge Disposition: Discharged to home or Selfcare 03/23/2024 2:30 PM CURRICULUM COORDINATOR [facility] [address] [place] [address] Jose R Pearson MD [address] [place] [address] Discharge Disposition: Discharged to home or Selfcare 03/30/2024 10:00 AM CURRICULUM COORDINATOR Office Visit [facility] Oncology Services [address] [place] [phone] Jose R Pearson MD [address] [place] [phone] Discharge Disposition: Discharged to home or Selfcare 03/30/2024 10:30 AM CURRICULUM COORDINATOR Lab [facility] Oncology Services [address] [place] [phone] Discharge Disposition: Discharged to home or Selfcare 03/31/2024 1:00 PM CURRICULUM COORDINATOR Clinical Support [facility] On[facility] [address] [place] [phone] Jose R Pearson MD [address] [place] [address] Discharge Disposition: Discharged to home or Selfcare 04/28/2024 1:30 PM CURRICULUM COORDINATOR Clinical Support [facility] Oncology Services [address] [place] [phone] Discharge Disposition: Discharged to home or Selfcare documented as of this encounter Visit Diagnoses Not on filedocumented in this encounter Additional Health Concerns Assessment Noted Time PHQ-9 Depression Total Score: 0 04/01/19 9:00 AM CURRICULUM COORDINATOR documented as of this encounter Care Teams Direct Care Supervisor Relationship Specialty Start Date End Date Ronit Parish MD #[address] [phone] PCP - General Family Medicine 03/01/15 04/15/22 Laurence Luque MD #[address] [phone] Consulting Physician General Surgery 02/01/15 Clemencia Bennett MD [address] [place] [address] Family Medicine 01/30/18 documented as of this encounter
--- OUTSIDE RECORDS SUMMARY | 2024-03-15 01:51 | XMS_ITS | Encounter Summary ---
Author Organization [facility] Address [address] [place] [address] Phone Care Team Providers Care [employer] Sales Representative Name Role Phone Laurence Luque MD Unavailable + [phone] Sandra Parish MD Primary Care Provider + [phone] Clemencia Bennett MD Unavailable [phone] Reason for Visit * Reason Comments Preventive Care yearly Encounter Details Date Type Department Care Team (Late st Contact Info) Description 04/01/2019 9:15 AM WATER RESOURCES PROJECT MANAGER Office Visit [facility] [address] [place] [address] Sandra Parish MD [address] [place] [address] Physical exam, annual (Adult) (Primary Dx); Essential hypertension; Obesity (BMI 30.0-34.9) Discharge Disposition: Discharged to home or Selfcare [...] Sign Reading Time Taken Comments Blood Pressure 122/68 04/01/2019 9:19 AM WATER RESOURCES PROJECT MANAGER Pulse 48 04/01/2019 9:19 AM WATER RESOURCES PROJECT MANAGER Temperature 36.6 ??C (97.8 ??F) 04/01/2019 9:19 AM CS T Respiratory Rate 16 04/01/2019 9:19 AM WATER RESOURCES PROJECT MANAGER Oxygen Saturation 98% 04/01/2019 9:19 AM WATER RESOURCES PROJECT MANAGER Inhaled Oxygen Concentration - - Weight 75.7 kg (166 lb 12.8 oz) 04/01/2019 9:19 AM WATER RESOURCES PROJECT MANAGER Height 152.4 cm (5') 04/01/2019 9:19 AM WATER RESOURCES PROJECT MANAGER Body Mass Index 32.58 04/01/2019 9:19 AM WATER RESOURCES PROJECT MANAGER documented in this encounter Progress Notes * Leyla Unger - 04/01/2019 9:15 AM CST Angie Reed is a 48 y.o. female with current BMI: Body mass index is 32.58 kg/m??. Interventions discussed including: encourage daily physical activity and well- balanced diet. Angie Reed, 48 y.o., female is here for Preventive Care (yearly) Medication Refills: Patient reports/denies need for medication refills. Orders Pended: no Requested Prescriptions No prescriptions requested or ordered in this encounter Home Medications Medication Sig Start Date End Date Taking? Authorizing Provider fexofenadine (FELIPE) 180 MG Tablet Take 1 Tab by mouth daily as needed. 01/30/18 Sandra Parish MD fluticasone (FLONASE) 50 MCG/ACT Suspension 2 Sprays by Nasal route daily as needed. Use in each nostril as directed. 01/30/18 Sandra Parish MD metoprolol tartrate (LOPRESSOR) 25 MG Tablet TAKE 1 TABLET BY MOUTH TWICE DAILY 02/15/19 Yes Sandra Parish MD Multiple Vitamin (MULTI-VITAMIN PO) Take 1 Tab by mouth daily. Yes ProviderErnesto MD omeprazole (PRILOSEC) 20 MG CAPSULE DELAYED RELEASE Take 1 Cap by mouth daily as needed for Other. 01/30/18 Sandra Parish MD There are no discontinued medications. I have reviewed the home medication list with the patient and have reconciled discrepancies. The list is accurate to the best of my knowledge. Smoking Status: Social History Tobacco Use ??? Smoking status: Never Smoker ??? Smokeless tobacco: Never Used Substance Use Topics ??? Alcohol use: Yes Alcohol/week: 0.0 oz Comment: rarely ??? Drug use: No Smoking Cessation Counseling Given: n/a Health Care Maintenance: Health Maintenance Due Topic Date Due ??? Mammogram Unilateral 1968 ??? Zoster Immunization (1 of 2) 2018 ??? Pap Smear 06/16/2019 Orders Pended: no The following BPA's have been addressed with the patient today: BMI, TDAP, Pap, Mammogram, and Depression R RESOURCES PROJECT MANAGER * Sandra Parish MD - 04/01/2019 9:15 AM CST Subjective Chief complaint: Angie Reed is here for complete physical exam Preventive Care (yearly) History of Present Illness: Angie presents here for a followup and an annual physical visit. She has been taking her medications as prescribed. She continues to take her metoprolol. Her blood pressure is well controlled at 120/68 mmHg. Heart rate is slightly low at 48 beats per minute. She denies having any lightheadedness, dizziness or syncopal episodes. Her heartburn is under control with omeprazole taken as needed. She has had her labs done recently on 03/24/19. Her CBC looks good. Hemoglobin and hematocrit levels are in normal range. CMP is normal. Fasting blood glucose was in normal range at 83. Lipid panel is under good control with LDL of 73. TSH, T4 levels are normal. IJN: [id number] ROS: Constitutional: denies significant weight loss or weight gain, fever or chills SKIN: Denies rash, itching, or significant moles. HEENT: denies headaches, tinnitus, vertigo, visual issues, teeth or throat problems. RESPIRATORY: denies shortness of breath, chronic cough or other respiratory problems. CARDIAC: denies heart murmur, palpitations, diaphoresis, chest pain radiating into arms or neck. GI: denies diarrhea, constipation, heartburn, nausea, vomiting, hematemesis, hemorrhoids : Denies incontinence, urgency, frequency, nocturia, hesitancy, dribbling. MUSCULOSKELETAL: Denies Joint pain or claudications NEURO: Denies syncope, seizures, weakness, paralysis, tremors, memory problems. PSYCH: Denies depression, anxiety PMH/PSH/FH/SH/medications/allergies/health maintenance entries were reviewed with patient and updated. Objective: Physical Exam Vitals: 04/01/19 0919 BP: 122/68 Pulse: (!) 48 Resp: 16 Temp: 97.8 ??F (36.6 ??C) TempSrc: Temporal SpO2: 98% Weight: 166 lb 12.8 oz (75.7 kg) Height: 5' (1.524 m) Body mass index is 32.58 kg/m??. Constitutional: She appears well-developed and well-nourished. No distress. HENT: Head: Atraumatic, normocephalic. Right Ear: Tympanic membrane, external ear and ear canal normal. Left Ear: Tympanic membrane, external ear and ear canal normal. Nose: Nose normal. Mouth/Throat: Oropharynx is clear and moist. Eyes: PERRLA, EOMI, Conjunctivae are normal, no discharge, No scleral icterus. Neck: Normal range of motion. Neck supple. No tracheal deviation present. No thyromegaly present. Lymphadenopathy: She has no cervical adenopathy. Cardiovascular: Normal rate, regular rhythm, normal heart sounds and intact distal pulses. No murmur/rubs/gallops heard. Pulmonary/Chest: clear to auscultation bilaterally, no crepts or wheezes. Musculoskeletal/extremities: no pedal edema, no calf tenderness. Neurological: She is alert. Strength, sensation normal. Skin: Skin is warm and dry. Psychiatric: She has a normal mood and affect. Her behavior is normal. Assessment and Plan Angie Reed who is a 48 y.o. y.o. female presents here for complete physical exam 1. Annual Physical/Preventetive Medicine Visit: Immunization History Administered Date(s) Administered ??? DTAP VACCINE 07/15/2012 ??? Influenza Vaccine greater than 3 yrs 12/15/2013, 12/16/2016 ??? Influenza Vaccine, Quadrivalent, PF 11/29/2014, 01/13/2018 ??? PUR FLU 3+ YRS PRES FREE QUAD IM 12/08/2015 Recent Procedure Details HM PAP SMEAR Resulted: 06/04/2013 (Final result) 2. Essential hypertension - continue metoprolol 25 mg b.i.d. 3. Obesity (BMI 30.0-34.9) - Advised Low fat, low carb diet, exercise and weight loss. - Calorie restriction, portion control recommended. - Avoid concentrated sweets. Discouraged soda. Anticipatory guidance on nutrition, healthy diet, exercise given. Followup: Return in about 6 months (around 09/30/2019).with labs done 1 week prior to next appointment. The patient understood the plan, questions were answered and AVS including the updated medication list was provided to the patient. Documentation for this visit on 04/01/2019 was completed using a template. I have seen and examinedthe patient. Everything documented was personally performed at this visit with the necessary additions, deletions and changes made as appropriate. SANDRA PARISH MD R RESOURCES PROJECT MANAGER R RESOURCES PROJECT MANAGER documented in this encounter Plan of Treatment Upcoming Encounters Date Type Department Care Team (Late st Contact Info) Description 03/23/2024 1:00 PM WATER RESOURCES PROJECT MANAGER Appointment [facility] Cardiology Services [address] [place] [address] Jose R Pearson MD [address] [place] [address] Discharge Disposition: Discharged to home or Selfcare 03/23/2024 2:30 PM WATER RESOURCES PROJECT MANAGER [facility] [address] [place] [address] Jose R Pearson MD [address] [place] [address] Discharge Disposition: Discharged to home or Selfcare 03/30/2024 10:00 AM WATER RESOURCES PROJECT MANAGER [facility] [address] [place] [address] Jose R Pearson MD [address] [place] [address] Discharge Disposition: Discharged to home or Selfcare 03/30/2024 10:30 AM WATER RESOURCES PROJECT MANAGER Lab [facility] Oncology Services [address] [place] [phone] Discharge Disposition: Discharged to home or Selfcare 03/31/2024 1:00 PM WATER RESOURCES PROJECT MANAGER Clinical Support [facility] Oncology Services [address] [place] [phone] Jose R Pearson MD [address] [place] [address] Discharge Disposition: Discharged to home or Selfcare 04/28/2024 1:30 PM WATER RESOURCES PROJECT MANAGER Clinical Support [facility] Oncology Services [address] [place] [address] Discharge Disposition: Discharged to home or Selfcare documented as of this encounter Results * THYROID STIMULATING HORMONE (TSH) (09/23/2019 7:48 AM CDT) [facility] TSH 3.470 0.270 - 4.200 mIU/L 09/23/2019 2:24 PM CDT [facility] Blood Venipuncture / Unknown 09/23/2019 7:48 AM CDT 09/23/2019 7:48 AM CDT us Sandra Parish MD CHEMISTRY ORDERABLES Final R esult [facility] [address] [place] [address] * THYROXINE (T4) FREE (09/23/2019 7:48 AM CDT) [facility] T4 FREE 1.0 0.9 - 1.7 ng/dL 09/23/2019 2:24 PM CDT [facility] Blood Venipuncture / Unknown 09/23/2019 7:48 AM CDT 09/23/2019 7:48 AM CDT Sandra Parish MD CHEMISTRY ORDERABLES Final R esult Performing Organization Address City/[facility]/ZIP Co de Phone Number [facility] [address] [place] [address] * (ABNORMAL) LIPID PANEL (09/23/2019 7:48 AM CDT) CHOLESTEROL 233(H) <=200 mg/dL 09/23/2019 2:24 PM CDT [facility] TRIGLYCERIDES 146 <150 mg/dL 09/23/2019 2:24 PM CDT [facility] HDL CHOLESTEROL 113.1 >40 mg/dL 0 2:24 PM CDT [facility] LDL 91 5 - 130 mg/dL 09/23/2019 2:24 PM CDT [facility] VLDL 29 5 - 55 mg/dL 09/23/2019 2:24 PM CDT [facility] CHOL/HDL RATIO 2.1 0.0 - 4.4 09/23/2019 2:24 PM CDT [facility] NON-HDL CHOLESTEROL 119.9 <130 mg/dL 09/23/2019 2:24 PM CDT [facility] LIPID FASTING 09/23/2019 2:24 PM CDT [facility] Blood Venipuncture / Unknown 09/23/2019 7:48 AM CDT 09/23/2019 7:48 AM CDT Sandra Parish MD CHEMISTRY ORDERABLES Final R esult [facility] [address] [place] [address] * (ABNORMAL) CMP (COMPREHENSIVE METABOLIC PANEL) (09/23/2019 7:48 AM CDT) SODIUM 137 136 - 144 mmol/L 09/23/2019 2:24 PM CDT [facility] POTASSIUM 4.2 3.5 - 5.1 mmol/L 09/23/2019 2:24 PM CDT [facility] CHLORIDE 99(L) 100 - 110 mmol/L 09/23/2019 2:24 PM CDT [facility] CO2, VENOUS 25 22 - 32 mmol/L 09/23/2019 2:24 PM CDT [facility] ANION GAP 17.2 8.0 - 20.0 mmol/L 09/23/2019 2:24 PM CDT [facility] GLUCOSE 103(H) 70 - 99 mg/dL 09/23/2019 2:24 PM CDT [facility] BUN 14 6 - 20 mg/dL 09/23/2019 2:24 PM CDT [facility] CREATININE, BLOOD 0.66 0.60 - 1.10 mg/dL 09/23/2019 2:24 PM CDT [facility] BUN/CREATININE RATIO 21(H) 12 - 20 ratio 09/23/2019 2:24 PM CDT [facility] TOTAL PROTEIN 7.2 6.0 - 8.3 g/dL 09/23/2019 2:24 PM CDT [facility] ALBUMIN 4.6 3.5 - 5.2 g/dL 09/23/2019 2:24 PM CDT [facility] Comment: The colormetric methods used for the determination of Albumin may lead to falsely elevated test results in patients suffering from renal failure or insufficiency due to interference with other proteins. A/G RATIO 1.8 1.0 - 2.0 09/23/2019 2:24 PM CDT [facility] CALCIUM 9.7 8.9 - 10.3 mg/dL 09/23/2019 2:24 PM CDT [facility] T BILI 0.4 <=1.2 mg/dL 09/23/2019 2:24 PM CDT [facility] SGOT (AST) 21 <=32 U/L 09/23/2019 2:24 PM CDT [facility] SGPT (ALT) 17 <=33 U/L 09/23/2019 2:24 PM CDT [facility] ALKALINE PHOSPHATASE 82 35 - 105 U/L 09/23/2019 2:24 PM CDT [facility] GFR, EST. NONAFRICAN >60 >=60 09/23/2019 2:24 PM CDT [facility] GFR, EST. >60 >=60 020 2:24 PM CDT [facility] Comment: Creatinine Clearance is the preferred criteria for selecting drug dose adjustments in renally impaired patients. ??The GFR is provided as additional pertinent clinical information. GFR is reported in mL/min/1.73 sq m. Blood Venipuncture / Unknown 09/23/2019 7:48 AM CDT 09/23/2019 7:48 AM CDT us Sandra Parish MD CHEMISTRY ORDERABLES Final R esult [facility] [address] [place] [address] documented in this encounter Visit Diagnoses Diagnosis Physical exam, annual (Adult)- Primary Routine general medical examination at a health care facility Essential hypertension Unspecified essential hypertension Obesity (BMI 30.0-34.9) Obesity, unspecified documented in this encounter Additional Health Concerns Assessment Noted Time PHQ-9 Depression Total Score: 0 04/01/19 20 9:00 AM WATER RESOURCES PROJECT MANAGER documented as of this encounter Care Teams Hobbies And Crafts Sales Representative Relationship Specialty Start Date End Date Sandra Parish MD #[address] [phone] PCP - General Family Medicine 03/01/15 04/15/22 Laurence Luque MD #[address] [address] Consulting Physician General Surgery 02/01/15 Clemencia Bennett MD [address] [place] [address] Family Medicine 01/30/18 documented as of this encounter
--- OUTSIDE RECORDS SUMMARY | 2024-03-15 01:51 | XMS_ITS | Encounter Summary ---
Author Organization [facility] Address [address] [place] [address] Phone Care Team Providers Care Psychological Stress Evaluator Name Role Phone Laurence Luque MD Unavailable + [phone] Ronit Parish MD Primary Care Provider + [phone] Clemencia Bennett MD Unavailable [phone] Reason for Visit * Reason Onset Date Comments Cough 05/30/2021 Encounter Details Date Type Department Care Team (Late st Contact Info) Description 05/30/2021 Nurse Triage [facility] [address] [place] [address] Ronit Parish MD [address] [place] [address] Cough Social History Tobacco Use Types Packs/Day Years [...] encounter Miscellaneous Notes * Telephone Encounter - Kaye Hoyos RN - 05/30/2021 8:11 AM CDT SITUATION: Cough BACKGROUND: Symptoms began 05/27/21 patient has taken 2 covid test. Both negative. ASSESSMENT: Symptom Description / Location: per patient has frequent dry cough. denies chest congestion or wheezing. Patient complains of body aches and fatigue. Patient has had a fever since yesterday evening . denies chest pain or difficulty breathing. denies wheezing. Pain (0-10): unaware Temp: 102.4 Treatment / Response: fluids, ibuprofen LMP / / : NA RECOMMENDATION: See care advice and disposition for Guideline First positive answer recorded, all responses to prior questions were negative. If symptoms increase, change or if new symptoms develop, call your HCP or call back. Recommendations were based on caller information and is not a diagnosis. Verified and reviewed all triage information with caller. Reason for Disposition ??? Continuous (nonstop) coughing interferes with work or school and no improvement using cough treatment per Care Advice Protocols used: COUGH-A-OH Patient scheduled in office today. documented in this encounter Plan of Treatment Upcoming Encounters Date Type Department Care Team (Late st Contact Info) Description 03/23/2024 1:00 PM ANTHROPOMETRIST [facility] [address] [place] [address] Jose R Pearson MD [address] [place] [address] Discharge Disposition: Discharged to home or Selfcare 03/23/2024 2:30 PM ANTHROPOMETRIST [facility] [address] [place] [address] Jose R Pearson MD [address] [place] [address] Discharge Disposition: Discharged to home or Selfcare 03/30/2024 10:00 AM ANTHROPOMETRIST Office Visit [facility] Oncology Services [address] [place] [phone] Jose R Pearson MD [address] [place] [address] Discharge Disposition: Discharged to home or Selfcare 03/30/2024 10:30 AM ANTHROPOMETRIST Lab [facility] Oncology Services [address] [place] [phone] Discharge Disposition: Discharged to home or Selfcare 03/31/2024 1:00 PM ANTHROPOMETRIST Clinical Support [facility] Oncology Services [address] [place] [phone] Jose R Pearson MD [address] [place] [address] Discharge Disposition: Discharged to home or Selfcare 04/28/2024 1:30 PM ANTHROPOMETRIST Clinical Support [facility] Oncology Services [address] [place] [phone] Discharge Disposition: Discharged to home or Selfcare documented as of this encounter Visit Diagnoses Not on filedocumented in this encounter Additional Health Concerns Assessment Noted Time PHQ-9 Depression Total Score: 0 04/01/19 20 9:00 AM ANTHROPOMETRIST documented as of this encounter Care Teams Psychological Stress Evaluator Relationship Specialty Start Date End Date Ronit Parish MD #[address] [phone] PCP - General Family Medicine 03/01/15 04/15/22 Laurecne Luque MD #[address] [phone] Consulting Physician General Surgery 02/01/15 Clemencia Bennett MD [address] [place] [address] Family Medicine 01/30/18 documented as of this encounter
--- OUTSIDE RECORDS SUMMARY | 2024-03-15 01:51 | XMS_ITS | Encounter Summary ---
Author Organization [facility] Address [address] [place] [address] Phone Care Team Providers Care Glassware Verifier Name Role Phone Laurence Luque MD Unavailable + [phone] Ronit Parish MD Primary Care Provider + [phone] Clemencia Bennett MD Unavailable [phone] Chica Saldana MD Primary Care Provider + [phone] Iveth Guzman MD Primary Care Provider Sony Mcpherson MD Unavailable [phone] Jose R Pearson MD Unavailable [phone] Reason for Visit * Reason Comments Medication Refill Encounter Details Date Type Department Care Team (Late st Contact Info) Description 06/07/2020 Refill [facility] [address] [place], [place] [id number] Ronit Parish MD [address] [place] [address] Medication Refill Social History Tobacco [...] encounter Miscellaneous Notes * Telephone Encounter - JenkinsLiliyaNaya L, RN - 06/07/2020 2:11 PM CDT Medication failed the protocol, provider to review and approve the medication order if appropriate. Requested Prescriptions Pending Prescriptions Disp Refills metoprolol tartrate (LOPRESSOR) 25 MG Tablet [Pharmacy Med Name: Metoprolol Tartrate 25 MG Oral Tablet] 180 Tablet 0 Sig: Take 1 tablet by mouth twice daily Cardiovascular: Beta Blockers Failed - 06/07/2020 2:11 PM Failed - Last BP in normal range BP Readings from Last 1 Encounters: 12/31/19 (!) 122/92 Passed - Valid encounter within last 12 months Past Office Visits Recent Outpatient Visits 5 months ago Essential hypertension [facility] Ronit Parish MD 8 months ago Essential hypertension [facility] Ronit Parish MD 1 year ago Acute URI [facility] Ronit Parish MD 1 year ago Physical exam, annual (Adult) [facility] Ronit Parish MD 1 year ago Essential hypertension [facility] Ronit Parish MD Upcoming Appointments Future Appointments In 1 month [facility] In 1 month Ronit Parish MD [facility] CLAIMS ACCOUNT MANAGER - Recent and Past Visits Recent Visits Date Type Provider Dept 12/31/19 Office Visit Ronit Parish MD [facility] 09/30/19 Office Visit Ronit Parish MD [facility] 04/09/19 Office Visit Ronit Parish MD [facility] 04/01/19 Office Visit Ronit Parish MD [facility] Showing recent visits within past 460 days with a meds authorizing provider and meeting all other requirements Future Appointments Date Type Provider Dept 07/14/20 Appointment Ronit Parish MD [facility] [address] Showing future appointments within next 90 days with a meds authorizing provider and meeting all other requirements documented in this encounter Plan of Treatment Upcoming Encounters Date Type Department Care Team (Late st Contact Info) Description 03/23/2024 1:00 PM DIRECTOR [employer]TER[employer] Appointment [facility] [address] [place] [address] Jose R Pearson MD [address] [place] [address] Discharge Disposition: Discharged to home or Selfcare 03/23/2024 2:30 PM DIRECTOR [employer] Appointment [facility] [address] [place] [address] Jose R Pearson MD [address] [place] [address] Discharge Disposition: Discharged to home or Selfcare 03/30/2024 10:00 AM DIRECTOR [employer] Office Visit [facility] [address] [place] [address] Jose R Pearson MD [address] [place] [address] Discharge Disposition: Discharged to home or Selfcare 03/30/2024 10:30 AM DIRECTOR [employer] Lab [facility] [address] [place] [address] Discharge Disposition: Discharged to home or Selfcare 03/31/2024 1:00 PM DIRECTOR [employer] Clinical Support [facility] [address] [place] [address] Jose R Pearson MD [address] [place], [place] [phone] Discharge Disposition: Discharged to home or Selfcare 04/28/2024 1:30 PM DIRECTOR [employer] Clinical Support [facility] [address] [place] [address] Discharge Disposition: Discharged to home or Selfcare documented as of this encounter Visit Diagnoses Diagnosis Essential hypertension Unspecified essential hypertension documented in this encounter Additional Health Concerns Assessment Noted Time PHQ-9 Depression Total Score: 0 04/01/19 20 9:00 AM DIRECTOR [employer] documented as of this encounter Care Teams Glassware Verifier Relationship Specialty Start Date End Date Ronit Parish MD [address] [address] PCP - General Family Medicine 03/01/15 04/15/22 Chica Saldana MD [address] [place] [address] PCP - General Family Medicine 04/16/22 05/01/23 Iveth Guzman MD [address] [place] [address] PCP - General Family Medicine 05/02/23 Laurence Luque MD [address] [address] Consulting Physician General Surgery 02/01/15 Clemencia Bennett MD [address] [place], [place] [id number] Family Medicine 01/30/18 Sony Mcpherson MD [address] [address] Consulting Physician General Surgery 09/08/23 Jose R Pearson MD [address] [place] [address] Consulting Physician Medical Oncology 10/02/23 documented as of this encounter
--- OUTSIDE RECORDS SUMMARY | 2024-03-15 01:51 | XMS_ITS | Encounter Summary ---
Author Organization [facility] Address [address] [place] [address] Phone Care Team Providers Care Block Sorter Name Role Phone Laurence Luque MD Unavailable + [phone] Ronit Parish MD Primary Care Provider + [phone] Clemencia Bennett MD Unavailable [phone] Encounter Details Date Type Department Care Team (Late st Contact Info) Description 03/24/2019 8:50 AM SPECTROGRAPH OPERATOR Lab [address] [address] [facility] Essential hypertension Discharge Disposition: Discharged to home [...] as of this encounter Progress Notes * Haley Nieves RMA - 03/24/2019 8:50 AM CST Angie presents for lab draw per order of Dr. Cottrell dated 03/24/19. Specimen collected from right antecubital without incident. sah TROGRAPH OPERATOR documented in this encounter Plan of Treatment Upcoming Encounters Date Type Department Care Team (Late st Contact Info) Description 03/23/2024 1:00 PM SPECTROGRAPH OPERATOR Appointment [facility] [address] [place] [address] Jose R Pearson MD [address] [place] [address] Discharge Disposition: Discharged to home or Selfcare 03/23/2024 2:30 PM SPECTROGRAPH OPERATOR Appointment [facility] [address] [place] [address] Jose R Pearson MD [address] [place] [address] Discharge Disposition: Discharged to home or Selfcare 03/30/2024 10:00 AM SPECTROGRAPH OPERATOR Office Visit [facility] [address] [place] [address] Jose R Pearson MD [address] [place] [address] Discharge Disposition: Discharged to home or Selfcare 03/30/2024 10:30 AM SPECTROGRAPH OPERATOR Lab [facility] [address] [place] [address] Discharge Disposition: Discharged to home or Selfcare 03/31/2024 1:00 PM SPECTROGRAPH OPERATOR Clinical Support [facility] [address] [place] [address] Jose R Pearson MD [address] [place] [address] Discharge Disposition: Discharged to home or Selfcare 04/28/2024 1:30 PM SPECTROGRAPH OPERATOR [facility] [address] [place] [address] Discharge Disposition: Discharged to home or Selfcare documented as of this encounter Procedures Procedure Name Priority Date/Time Associated Diagnosis Comments CBC WITH AUTO DIFFERENTIAL Routine 03/24/2019 8:33 AM SPECTROGRAPH OPERATOR Essential hypertension THYROXINE (T4) FREE Routine 03/24/2019 8 :33 AM SPECTROGRAPH OPERATOR Essential hypertension THYROID STIMULATING HORMONE (TSH) Routine 03/24/2019 8:33 AM SPECTROGRAPH OPERATOR Essential hypertension LIPID PANEL Routine 03/24/2019 8:33 AM SPECTROGRAPH OPERATOR Essential hypertension CMP (COMPREHENSIVE METABOLIC PANEL) Routine 03/24/2019 8:33 AM SPECTROGRAPH OPERATOR Essential hypertension COMPLETE BLOOD COUNT (CBC) WITH DIFF Routine 03/24/2019 8:33 AM SPECTROGRAPH OPERATOR Essential hypertension documented in this encounter Results * CBC WITH AUTO DIFFERENTIAL (03/24/2019 8:33 AM SPECTROGRAPH OPERATOR) WBC 6.35 4.00 - 12.00 10(3)/mcL 03/24/2019 12:07 PM SPECTROGRAPH OPERATOR [facility] RBC 4.68 3.80 - 5.30 10(6)/mcL 03/24/2019 12:07 PM SPECTROGRAPH OPERATOR [facility] HEMOGLOBIN (HGB) 14.2 12.0 - 15.8 g/dL 03/24/2019 12:07 PM SPECTROGRAPH OPERATOR [facility] HEMATOCRIT (HCT) 44.4 36.0 - 47.0 % 03/24/2019 12:07 PM SPECTROGRAPH OPERATOR [facility] MCV 94.9 82.0 - 96.0 fL 03/24/2019 12:07 PM SPECTROGRAPH OPERATOR [facility] MCH 30.3 26.0 - 34.0 pg 03/24/2019 12:07 PM SPECTROGRAPH OPERATOR [facility] MCHC 32.0 31.0 - 36.0 g/dL 03/24/2019 12:07 PM [facility] PLATELET COUNT 286 140 - 440 10(3)/mcL 03/24/2019 12:07 PM [facility] RDW 13.4 11.8 - 15.5 % 03/24/2019 12:07 PM [facility] MPV 10.2 9.7 - 12.4 fL 03/24/2019 12:07 PM [facility] NEUTROPHILS 51.6 47.0 - 73.0 % 03/24/2019 12:07 PM [facility] LYMPHOCYTES 38.3 18.0 - 42.0 % 03/24/2019 12:07 PM [facility] MONOCYTES 7.6 4.0 - 12.0 % 03/24/2019 12:07 PM [facility] EOSINOPHILS 2.0 0.0 - 5.0 % 03/24/2019 12:07 PM [facility] BASOPHILS 0.5 0.0 - 1.0 % 03/24/2019 12:07 PM [facility] ABSOLUTE NEUTROPHILS 3.28 1.60 - 7.70 10(3)/mcL 03/24/2019 12:07 PM [facility] ABSOLUTE LYMPHOCYTES 2.43 1.30 - 3.20 10(3)/mcL 03/24/2019 12:07 PM [facility] ABSOLUTE MONOCYTES 0.48 0.20 - 1.00 10(3)/mcL 03/24/2019 12:07 PM [facility] ABSOLUTE EOSINOPHIL 0.13 0.00 - 0.40 10(3)/mcL 03/24/2019 12:07 PM [facility] ABSOLUTE BASOPHILS 0.03 0.00 - 0.10 10(3)/[facility] 03/24/2019 12:07 PM [facility] NRBC PER 100 WBC 0 03/24/19 20 12:07 PM [facility] Blood specimen (specimen) Venipuncture / Unknown 03/24/2019 8:33 AM SPECTROGRAPH OPERATOR 03/24/2019 8:33 AM SPECTROGRAPH OPERATOR us Ronit Parish MD HEMATOLOGY ORDERABLES Final Result Performing Organization Address City/[facility] Co de Phone Number [facility] [address] [place] [address] * THYROXINE (T4) FREE (03/24/2019 8:33 AM SPECTROGRAPH OPERATOR) T4 FREE 1.1 0.9 - 1.7 ng/dL 03/24/2019 12:56 PM SPECTROGRAPH OPERATOR [facility] Blood specimen (specimen) Venipuncture / Unknown 03/24/2019 8:33 AM SPECTROGRAPH OPERATOR 03/24/2019 8:33 AM SPECTROGRAPH OPERATOR us Ronit Parish MD CHEMISTRY ORDERABLES Final R esult Performing Organization Address [facility] Co de Phone Number [facility] [address] [place] [address] * THYROID STIMULATING HORMONE (TSH) (03/24/2019 8:33 AM SPECTROGRAPH OPERATOR) TSH 2.130 0.270 - 4.200 mIU/L 03/24/2019 12:56 PM SPECTROGRAPH OPERATOR [facility] Blood specimen (specimen) Venipuncture / Unknown 03/24/2019 8:33 AM SPECTROGRAPH OPERATOR 03/24/2019 8:33 AM SPECTROGRAPH OPERATOR Ronit Parish MD CHEMISTRY ORDERABLES Final R esult Performing Organization Address City/[facility] Co de Phone Number [facility] [address] [place] [address] * LIPID PANEL (03/24/2019 8:33 AM SPECTROGRAPH OPERATOR) CHOLESTEROL 200 <=200 mg/dL 03/24/2019 12:56 PM SPECTROGRAPH OPERATOR [facility] TRIGLYCERIDES 79 <150 mg/dL 03/24/2019 12:56 PM SPECTROGRAPH OPERATOR [facility] HDL CHOLESTEROL 111.2 >40 mg/dL 0 12:56 PM [facility] LDL 73 5 - 130 mg/dL 03/24/2019 12:56 PM [facility] VLDL 16 5 - 55 mg/dL 03/24/2019 12:56 PM [facility] CHOL/HDL RATIO 1.8 0.0 - 4.4 03/24/2019 12:56 PM [facility] NON-HDL CHOLESTEROL 88.8 <130 mg/dL 03/24/2019 12:56 PM [facility] LIPID FASTING 03/24/2019 12:56 PM [facility] Blood specimen (specimen) Venipuncture / Unknown 03/24/2019 8:33 AM SPECTROGRAPH OPERATOR 03/24/2019 8:33 AM SPECTROGRAPH OPERATOR us Ronit Parish MD CHEMISTRY ORDERABLES Final R esult [facility] [address] [place] [address] * (ABNORMAL) CMP (COMPREHENSIVE METABOLIC PANEL) (03/24/2019 8:33 AM SPECTROGRAPH OPERATOR) SODIUM 139 136 - 144 mmol/L 03/24/2019 12:56 PM [facility] POTASSIUM 3.9 3.5 - 5.1 mmol/L 03/24/2019 12:56 PM [facility] CHLORIDE 99(L) 100 - 110 mmol/L 03/24/2019 12:56 PM [facility] CO2, VENOUS 25 22 - 32 mmol/L 03/24/2019 12:56 PM [facility] ANION GAP 18.9 8.0 - 20.0 mmol/L 03/24/2019 12:56 PM [facility] GLUCOSE 83 70 - 99 mg/dL 03/24/2019 12:56 PM [facility] BUN 13 6 - 20 mg/dL 03/24/2019 12:56 PM [facility] CREATININE, BLOOD 0.74 0.60 - 1.10 mg/dL 03/24/2019 12:56 PM [facility] BUN/CREATININE RATIO 18 12 - 20 ratio 03/24/2019 12:56 PM [facility] TOTAL PROTEIN 7.6 6.0 - 8.3 g/dL 03/24/2019 12:56 PM [facility] ALBUMIN 4.8 3.5 - 5.2 g/dL 03/24/2019 12:56 PM [facility] Comment: The colormetric methods used for the determination of Albumin may lead to falsely elevated test results in patients suffering from renal failure or insufficiency due to interference with other proteins. A/G RATIO 1.7 1.0 - 2.0 03/24/2019 12:56 PM [facility] CALCIUM 10.0 8.9 - 10.3 mg/dL 03/24/2019 12:56 PM [facility] T BILI 0.5 <=1.2 mg/dL 03/24/2019 12:56 PM [facility] SGOT (AST) 22 <=32 U/L 03/24/2019 12:56 PM [facility] SGPT (ALT) 18 <=33 U/L 03/24/2019 12:56 PM [facility] ALKALINE PHOSPHATASE 68 35 - 105 U/L 03/24/2019 12:56 PM [facility] GFR, EST. NONAFRICAN >60 >=60 03/24/2019 12:56 PM [facility] GFR, EST. >60 >=60 020 12:56 PM [facility] Comment: Creatinine Clearance is the preferred criteria for selecting drug dose adjustments in renally impaired patients. ??The GFR is provided as additional pertinent clinical information. GFR is reported in mL/min/1.73 sq m. Blood specimen (specimen) Venipuncture / Unknown 03/24/2019 8:33 AM SPECTROGRAPH OPERATOR 03/24/2019 8:33 AM SPECTROGRAPH OPERATOR us Ronit Parish MD CHEMISTRY ORDERABLES Final R esult [facility] [place] [address] documented in this encounter Visit Diagnoses Diagnosis Essential hypertension Unspecified essential hypertension documented in this encounter Additional Health Concerns Assessment Noted Time PHQ-9 Depression Total Score: 0 07/31/19 19 9:00 AM CDT documented as of this encounter Care Teams Block Sorter Relationship Specialty Start Date End Date Ronit Parish MD [address] [address] PCP - General Family Medicine 03/01/15 04/15/22 Laurence Luque MD [address] [address] Consulting Physician General Surgery 02/01/15 Clemencia Bennett MD [address] [place] [address] Family Medicine 01/30/18 documented as of this encounter
--- OUTSIDE RECORDS SUMMARY | 2024-03-15 01:51 | XMS_ITS | Encounter Summary ---
Author Organization [facility] Address [address] [place] [address] Phone Care Team Providers Care Master Certified Rv Technician Name Role Phone Laurence Luque MD Unavailable + [phone] Ronit Parish MD Primary Care Provider + [phone] Clemencia Bennett MD Unavailable [phone] Reason for Visit * Reason Comments Weight Management Encounter Details Date Type Department Care Team (Late st Contact Info) Description 12/14/2020 3:45 PM CDT Office Visit [facility] - Primary Care - [place] [address] [place] [address] Ronit Parish MD [address] [place] [address] Obesity (BMI 30.0-34.9) (Primary Dx); Essential hypertension; Encounter for immunization Discharge Disposition: Discharged to home or Selfcare [...] have Coronavirus / COVID-19? No / Unsure 12/14/2020 3:25 PM CDT documented as of this encounter Last Filed Vital Signs Vital Sign Reading Time Taken Comments Blood Pressure 142/82 12/14/2020 3:27 PM CDT Pulse 60 12/14/2020 3:27 PM CDT Temperature 36.6 ??C (97.9 ??F) 12/14/2020 3:27 PM CD T Respiratory Rate 20 12/14/2020 3:27 PM CDT Oxygen Saturation 98% 12/14/2020 3:27 PM CDT Inhaled Oxygen Concentration - - Weight 65.8 kg (145 lb) 12/14/2020 3:27 PM CDT Height 154.9 cm (5' 1 ) 12/14/2020 3:27 PM CDT Body Mass Index 27.4 12/14/2020 3:27 PM CDT documented in this encounter Progress Notes * Jen Chaves, YAMINI - 12/14/2020 3:45 PM CDT Shantel Davis, 50 y.o., female is here for Weight Management Medication Refills: Patient reports/denies need for medication refills. Orders Pended: no Requested Prescriptions No prescriptions requested or ordered in this encounter Home Medications Medication Sig Start Date End Date Taking? Authorizing Provider metoprolol tartrate (LOPRESSOR) 25 MG Tablet Take 1 Tablet by mouth 2 times daily. 08/11/20 Ronit Parish MD Multiple Vitamin (MULTI-VITAMIN PO) Take 1 Tab by mouth daily. Provider, MD Ernesto Phentermine HCl 37.5 MG Tablet Take 1 Tablet by mouth every morning (before breakfast). 08/11/20 Ronit Parish MD There are no discontinued medications. [...] Health Maintenance Due Topic Date Due ??? Zoster Immunization (1 of 2) Never done ??? SARS-COV-2 Immunization (3 - Inadvertent mRNA risk 3-dose series) 07/22/2020 ??? Influenza Immunization (1) 11/15/2020 Orders Pended: n/a The following BPA's have been addressed with the patient today: N/A * Ronit Parish MD - 12/14/2020 3:45 PM CDT Subjective Chief Complaint Patient presents with ??? Weight Management History of Present Illness Angie presents here for a followup for her weight check, follow up annual check. She continues to take phentermine 37.5 mg once daily. Reports having difficulty sleeping at times. She started phentermine in September 2019, when she was weighing 169 pounds. Today, she weighs 145 pounds. She has lost a total of 24 pounds with phentermine. Her current BMI is 27.40. If she reaches a BMI of 25, we will decrease her phentermine to 50 mg once daily for maintenance. Her BP is slightlyelevated today at 142/82. She continues to take metoprolol 25 mg twice daily. She denies having anychest tightness, palpitations or chest pain. IJN: [id number] ROS: RESPIRATORY: Patient denies shortness of breath, chronic cough or other respiratory problems. CARDIAC: Patient denies chest pain, chest pressure, palpitations, diaphoresis, chest pain radiating into arms or neck. PMH/PSH/FH/SH/medications/allergies/health maintenance entries were reviewed with patient and updated. Objective: Physical Exam Vitals: 12/14/20 1527 BP: 142/82 Pulse: 60 Resp: 20 Temp: 97.9 ??F (36.6 ??C) SpO2: 98% Weight: 145 lb (65.8 kg) Height: 5' 1 (1.549 m) Body mass index is 27.4 kg/m??. Constitutional: She appears well-developed and well-nourished. No distress. HENT: Head: Atraumatic, normocephalic. Cardiovascular: Normal rate, regular rhythm, normal heart sounds and intact distal pulses. No murmur/rubs/gallops heard. Pulmonary/Chest: clear to auscultation bilaterally, no crepts or wheezes. Musculoskeletal/extremities: no pedal edema, no calf tenderness. Skin: Skin is warm and dry. Assessment and Plan Angie Reed presents here for Weight Management 1. Obesity (BMI 30.0-34.9) - has lost a total of 24 lb since September 2019 when phentermine was started. Current BMI 27.4. - continue Phentermine HCl 37.5 MG q.d.. - if she reaches 130 lb, I will decrease phentermine to 15 mg q.d. for maintenance. 2. Essential hypertension - continue metoprolol 25 mg b.i.d.. I will recheck next visit. 3. Encounter for immunization - INFLUENZA VACCINE QUAD IM Followup: Return in about 3 months (around 03/15/2021) for recheck weight.with labs done 1 week prior to next appointment. The patient understood the plan, questions were answered and AVS including the updated medication list was provided to the patient. Documentation for this visit on 12/14/20 was completed using a template. I have seen and examined the patient. Everything documented was personally performed at this visit with the necessary additions, deletions and changes made as appropriate. This note was dictated using M*Modal fluency dictation system and there may be errors in doctorate of chiropractic. Despite proof reading the note, there may be mistakes and I apologize for those. Ronit Parish MD * Jen Chaves CMA - 12/14/2020 3:45 PM CDT Angie is here for Flu immunizations per order of Dr. Cottrell dated 09/30/21. Administered in left deltoid . Vaccine Information Sheet(s) were given on 12/14/20. Verbal consent was obtained. Angie tolerated the immunization well without incident. See Immunization activity for details. documented in this encounter Plan of Treatment Upcoming Encounters Date Type Department Care Team (Late st Contact Info) Description 03/23/2024 1:00 PM QUARRY WORKER Appointment [facility] Cardiology Services [address] [place] [address] Jose R Pearson MD [address] [place] [address] Discharge Disposition: Discharged to home or Selfcare 03/23/2024 2:30 PM QUARRY WORKER Appointment [facility] [address] [place] [address] Jose R Pearson MD [address] [place] [address] Discharge Disposition: Discharged to home or Selfcare 03/30/2024 10:00 AM QUARRY WORKER Office Visit [facility] Oncology Services [address] [place] [address] Jose R eParson MD [address] [place] [address] Discharge Disposition: Discharged to home or Selfcare 03/30/2024 10:30 AM QUARRY WORKER Lab [facility] Oncology Services [address] [place] [address] Discharge Disposition: Discharged to home or Selfcare 03/31/2024 1:00 PM QUARRY WORKER Clinical Support [facility] Oncology Services [address] [place] [address] Jose R Pearson MD [address] [place] [address] Discharge Disposition: Discharged to home or Selfcare 04/28/2024 1:30 PM QUARRY WORKER Clinical Support [facility] Oncology Services [address] [place] [address] Discharge Disposition: Discharged to home or Selfcare documented as of this encounter Results * THYROXINE (T4) FREE (04/06/2021 8:31 AM QUARRY WORKER) T4 FREE 1.3 0.9 - 1.7 ng/dL 04/06/2021 2:13 PM QUARRY WORKER [facility] Blood Venipuncture / Unknown 04/06/2021 8:31 AM QUARRY WORKER 04/06/2021 8:31 AM QUARRY WORKER us Ronit Parish MD CHEMISTRY ORDERABLES Final R esult [facility] [address] [place] [address] * THYROID STIMULATING HORMONE (TSH) (04/06/2021 8:31 AM QUARRY WORKER) Pathologist [facility] TSH 1.180 0.270 - 4.200 mIU/L 04/06/2021 2:13 PM QUARRY WORKER [facility] Blood Venipuncture / Unknown 04/06/2021 8:31 AM QUARRY WORKER 04/06/2021 8:31 AM QUARRY WORKER us Ronit Parish MD CHEMISTRY ORDERABLES Final R esult [facility] [address] [place] [address] * HEMOGLOBIN A1C W/ ESTIMATED GLUCOSE (04/06/2021 8:31 AM QUARRY WORKER) HGB-A1C 5.5 4.0 - 6.0 % 04/06/2021 3:04 PM QUARRY WORKER [facility] Est Average Glucose 111.2 mg/dL 04/06/2021 3:04 PM QUARRY WORKER [facility] Blood Venipuncture / Unknown 04/06/2021 8:31 AM QUARRY WORKER 04/06/2021 8:31 AM QUARRY WORKER Narrative [facility] - 04/06/2021 3:04 PM QUARRY WORKER HEMOGLOBIN A1C: DIABETIC PATIENTS: WELL-CONTROLLED: ?? 6.2 - 7.0 INTERMEDIATE WELL-CONTROLLED: ??7.0 - 9.0 POORLY-CONTROLLED: ??>9.0 us Ronit Parish MD CHEMISTRY ORDERABLES Final R esult [facility] [address] [place] [address] * (ABNORMAL) LIPID PANEL (04/06/2021 8:31 AM QUARRY WORKER) CHOLESTEROL 201(H) <=200 mg/dL 04/06/2021 2:13 PM QUARRY WORKER [facility] TRIGLYCERIDES 67 <150 mg/dL 04/06/2021 2:13 PM [facility] HDL CHOLESTEROL 117.1 >40 mg/dL 2:13 PM [facility] LDL 71 5 - 130 mg/dL 04/06/2021 2:13 PM QUARRY WORKER [facility] VLDL 13 5 - 55 mg/dL 04/06/2021 2:13 PM [facility] CHOL/HDL RATIO 1.7 0.0 - 4.4 04/06/2021 2:13 PM QUARRY WORKER [facility] NON-HDL CHOLESTEROL 83.9 <130 mg/dL 04/06/2021 2:13 PM [facility] IS THE PATIENT REQUIRED TO BE FASTING? Yes 04/06/2021 2:13 PM [facility] Blood Venipuncture / Unknown 04/06/2021 8:31 AM QUARRY WORKER 04/06/2021 8:31 AM QUARRY WORKER us Ronit Parish MD CHEMISTRY ORDERABLES Final R esult [facility] [address] [place] [address] * CMP (COMPREHENSIVE METABOLIC PANEL) (04/06/2021 8:31 AM QUARRY WORKER) SODIUM 139 136 - 144 mmol/L 04/06/2021 2:13 PM QUARRY WORKER [facility] POTASSIUM 4.2 3.5 - 5.1 mmol/L 04/06/2021 2:13 PM [facility] CHLORIDE 105 100 - 110 mmol/L 04/06/2021 2:13 PM [facility] CO2, VENOUS 24 22 - 32 mmol/L 04/06/2021 2:13 PM [facility] ANION GAP 14.2 8.0 - 20.0 mmol/L 04/06/2021 2:13 PM QUARRY WORKER [facility] GLUCOSE 88 70 - 99 mg/dL 04/06/2021 2:13 PM [facility] BUN 14 6 - 20 mg/dL 04/06/2021 2:13 PM [facility] CREATININE, BLOOD 0.78 0.60 - 1.10 mg/dL 04/06/2021 2:13 PM [facility] BUN/CREATININE RATIO 18 12 - 20 ratio 04/06/2021 2:13 PM [facility] TOTAL PROTEIN 6.9 6.0 - 8.3 g/dL 04/06/2021 2:13 PM [facility] ALBUMIN 4.6 3.5 - 5.2 g/dL 04/06/2021 2:13 PM [facility] Comment: The colormetric methods used for the determination of Albumin may lead to falsely elevated test results in patients suffering from renal failure or insufficiency due to interference with other proteins. A/G RATIO 2.0 1.0 - 2.0 04/06/2021 2:13 PM QUARRY WORKER [facility] CALCIUM 10.0 8.9 - 10.3 mg/dL 04/06/2021 2:13 PM QUARRY WORKER [facility] T BILI 0.4 <=1.2 mg/dL 04/06/2021 2:13 PM QUARRY WORKER [facility] SGOT (AST) 22 <=32 U/L 04/06/2021 2:13 PM QUARRY WORKER [facility] SGPT (ALT) 17 <=41 U/L 04/06/2021 2:13 PM QUARRY WORKER [facility] ALKALINE PHOSPHATASE 92 35 - 105 U/L 04/06/2021 2:13 PM QUARRY WORKER [facility] GFR, EST. NONAFRICAN >60 >=60 04/06/2021 2:13 PM QUARRY WORKER [facility] GFR, EST. >60 >=60 022 2:13 PM QUARRY WORKER [facility] Comment: Creatinine Clearance is the preferred criteria for selecting drug dose adjustments in renally impaired patients. ??The GFR is provided as additional pertinent clinical information. GFR is reported in mL/min/1.73 sq m. IS THE PATIENT REQUIRED TO BE FASTING? No 04/06/2021 2:13 PM QUARRY WORKER [facility] Blood Venipuncture / Unknown 04/06/2021 8:31 AM QUARRY WORKER 04/06/2021 8:31 AM QUARRY WORKER us Ronit Parish MD CHEMISTRY ORDERABLES Final R esult [facility] [address] [place] [address] documented in this encounter Visit Diagnoses Diagnosis Obesity (BMI 30.0-34.9)- Primary Obesity, unspecified Essential hypertension Unspecified essential hypertension Encounter for immunization Need for other specified prophylactic vaccination against single bacterial disease documented in this encounter Additional Health Concerns Assessment Noted Time PHQ-9 Depression Total Score: 0 04/01/19 20 9:00 AM QUARRY WORKER documented as of this encounter Care Teams Master Certified Rv Technician Relationship Specialty Start Date End Date Ronit Parish MD [address] [address] PCP - General Family Medicine 03/01/15 04/15/22 Laurence Luque MD [address] [address] Consulting Physician General Surgery 02/01/15 Clemencia Bennett MD [address] [place] [address] Family Medicine 01/30/18 documented as of this encounter
--- OUTSIDE RECORDS SUMMARY | 2024-03-15 01:51 | XMS_ITS | Encounter Summary ---
Author Organization [facility] [employer] [facility] Care Team Providers Care Necktie Operator Pockets And Pieces Name Role Phone Laurence Luque MD Unavailable + [phone] Ronit Parish MD Primary Care Provider + [phone] Clemencia Bennett MD Unavailable [phone] Encounter Details Date Type Department Care Team (Latest Contact Info) Description 05/25/2019 Travel Social History Tobacco Use Types Packs/Day [...] st Contact Info) Description 03/23/2024 1:00 PM CLOTHES PRESSER Appointment [facility] Cardiology Services [address] [place] [address] Jose R Pearson MD [address] [place] [address] Discharge Disposition: Discharged to home or Selfcare 03/23/2024 2:30 PM CLOTHES PRESSER Appointment [facility] [address] [place] [address] Jose R Pearson MD [address] [place] [address] Discharge Disposition: Discharged to home or Selfcare 03/30/2024 10:00 AM CLOTHES PRESSER Office Visit [facility] Oncology Services [address] [place] [phone] Jose R Pearson MD [address] [place] [address] Discharge Disposition: Discharged to home or Selfcare 03/30/2024 10:30 AM CLOTHES PRESSER Lab [facility] Oncology Services [address] [place] [phone] Discharge Disposition: Discharged to home or Selfcare 03/31/2024 1:00 PM CLOTHES PRESSER Clinical Support [facility] Oncology Services [address] [place] [phone] Jose R Pearson MD [address] [place] [address] Discharge Disposition: Discharged to home or Selfcare 04/28/2024 1:30 PM CLOTHES PRESSER Clinical Support [facility] Oncology Services [address] [place] [phone] Discharge Disposition: Discharged to home or Selfcare documented as of this encounter Visit Diagnoses Not on filedocumented in this encounter Additional Health Concerns Assessment Noted Time PHQ-9 Depression Total Score: 0 04/01/19 9:00 AM CLOTHES PRESSER documented as of this encounter Care Teams Necktie Operator Pockets And Pieces Relationship Specialty Start Date End Date Ronit Parish MD [address] [address] PCP - General Family Medicine 03/01/15 04/15/22 Laurence Luque MD #[address] [address] Consulting Physician General Surgery 02/01/15 Clemencia Bennett MD [address] [place] [address] Family Medicine 01/30/18 documented as of this encounter
--- OUTSIDE RECORDS SUMMARY | 2024-03-15 01:51 | XMS_ITS | Encounter Summary ---
Author Organization [facility] Address [address] [place] [address] Phone Care Team Providers Care Analyst Market Intelligence Name Role Phone Laurence Luque MD Unavailable + [phone] Ronit Parish MD Primary Care Provider + [phone] Clemencia Bennett MD Unavailable [phone] Encounter Details Date Type Department Care Team (Late st Contact Info) Description 09/23/2019 8:00 AM CDT Lab [facility] - Primary Care - [address] [address] [facility] Essential hypertension Discharge Disposition: Discharged to home [...] have Coronavirus / COVID-19? No / Unsure 09/23/2019 7:46 AM CDT documented as of this encounter Progress Notes * OntHaley faye RMA - 09/23/2019 8:00 AM CDT Angie presents for lab draw per order of Dr. Cottrell dated 09/23/19. Specimen collected from right antecubital without incident. sah documented in this encounter Plan of Treatment Upcoming Encounters Date Type Department Care Team (Late st Contact Info) Description 03/23/2024 1:00 PM ACID CONDITIONER Appointment [facility] Cardiology Services [address] [place] [address] Jose R Pearson MD [address] [place] [address] Discharge Disposition: Discharged to home or Selfcare 03/23/2024 2:30 PM ACID CONDITIONER Appointment [facility] CT [address] [place] [address] Jose R Pearson MD [address] [place] [address] Discharge Disposition: Discharged to home or Selfcare 03/30/2024 10:00 AM ACID CONDITIONER Office Visit [facility] Oncology Services [address] [place] [address] Jose R Pearson MD [address] [place] [address] Discharge Disposition: Discharged to home or Selfcare 03/30/2024 10:30 AM ACID CONDITIONER Lab [facility] Oncology Services [address] [place] [address] Discharge Disposition: Discharged to home or Selfcare 03/31/2024 1:00 PM ACID CONDITIONER Clinical Support [facility] Oncology Services [address] [place] [phone] Jose R Pearson MD [address] [place] [address] Discharge Disposition: Discharged to home or Selfcare 04/28/2024 1:30 PM ACID CONDITIONER Clinical Support [facility] Oncology Services [address] [place] [address] Discharge Disposition: Discharged to home or Selfcare documented as of this encounter Procedures Procedure Name Priority Date/Time Associated Diagnosis Comments CBC WITH AUTO DIFFERENTIAL Routine 09/23/2019 7:48 AM CDT Essential hypertension THYROXINE (T4) FREE Routine 09/23/2019 7 :48 AM CDT Essential hypertension THYROID STIMULATING HORMONE (TSH) Routine 09/23/2019 7:48 AM CDT Essential hypertension LIPID PANEL Routine 09/23/2019 7:48 AM CDT Essential hypertension CMP (COMPREHENSIVE METABOLIC PANEL) Routine 09/23/2019 7:48 AM CDT Essential hypertension COMPLETE BLOOD COUNT (CBC) WITH DIFF Routine 09/23/2019 7:48 AM CDT Essential hypertension documented in this encounter Results * (ABNORMAL) CBC WITH AUTO DIFFERENTIAL (09/23/2019 7:48 AM CDT) WBC 6.58 4.00 - 12.00 10(3)/mcL 09/23/2019 12:44 PM CDT [facility] RBC 4.67 3.80 - 5.30 10(6)/mcL 09/23/2019 12:44 PM CDT [facility] HEMOGLOBIN (HGB) 14.4 12.0 - 15.8 g/dL 09/23/2019 12:44 PM CDT [facility] HEMATOCRIT (HCT) 44.7 36.0 - 47.0 % 09/23/2019 12:44 PM CDT [facility] MCV 95.7 82.0 - 96.0 fL 09/23/2019 12:44 PM CDT [facility] MCH 30.8 26.0 - 34.0 pg 09/23/2019 12:44 PM CDT [facility] MCHC 32.2 31.0 - 36.0 g/dL 09/23/2019 12:44 PM CDT [facility] PLATELET COUNT 254 140 - 440 10(3)/mcL 09/23/2019 12:44 PM CDT [facility] RDW 12.8 11.8 - 15.5 % 09/23/2019 12:44 PM CDT [facility] MPV 10.1 9.7 - 12.4 fL 09/23/2019 12:44 PM CDT [facility] NEUTROPHILS 47.8 47.0 - 73.0 % 09/23/2019 12:44 PM CDT [facility] LYMPHOCYTES 42.2(H) 18.0 - 42.0 % 09/23/2019 12:44 PM CDT [facility] MONOCYTES 7.0 4.0 - 12.0 % 09/23/2019 12:44 PM CDT [facility] EOSINOPHILS 2.4 0.0 - 5.0 % 09/23/2019 12:44 PM CDT [facility] BASOPHILS 0.6 0.0 - 1.0 % 09/23/2019 12:44 PM CDT [facility] ABSOLUTE NEUTROPHILS 3.14 1.60 - 7.70 10(3)/mcL 09/23/2019 12:44 PM CDT [facility] ABSOLUTE LYMPHOCYTES 2.78 1.30 - 3.20 10(3)/mcL 09/23/2019 12:44 PM CDT [facility] ABSOLUTE MONOCYTES 0.46 0.20 - 1.00 10(3)/mcL 09/23/2019 12:44 PM CDT [facility] ABSOLUTE EOSINOPHIL 0.16 0.00 - 0.40 10(3)/mcL 09/23/2019 12:44 PM CDT [facility] ABSOLUTE BASOPHILS 0.04 0.00 - 0.10 10(3)/mcL 09/23/2019 12:44 PM CDT [facility] NRBC PER 100 WBC 0 09/23/19 20 12:44 PM CDT [facility] Blood Venipuncture / Unknown 09/23/2019 7:48 AM CDT 09/23/2019 7:48 AM CDT us Ronit Parish MD HEMATOLOGY ORDERABLES Final Result [facility] [address] [place] [address] * THYROID STIMULATING HORMONE (TSH) (09/23/2019 7:48 AM CDT) TSH 3.470 0.270 - 4.200 mIU/L 09/23/2019 2:24 PM CDT [facility] Blood Venipuncture / Unknown 09/23/2019 7:48 AM CDT 09/23/2019 7:48 AM CDT us Ronit Parish MD CHEMISTRY ORDERABLES Final R esult Performing Organization Address City/[facility] Co de Phone Number [facility] [address] [place] [address] * THYROXINE (T4) FREE (09/23/2019 7:48 AM CDT) T4 FREE 1.0 0.9 - 1.7 ng/dL 09/23/2019 2:24 PM CDT [facility] Blood Venipuncture / Unknown 09/23/2019 7:48 AM CDT 09/23/2019 7:48 AM CDT us Ronit Parish MD CHEMISTRY ORDERABLES Final R esult Performing Organization Address City/[facility]/ZIP Co de Phone Number [facility] [address] [place] [address] * (ABNORMAL) LIPID PANEL (09/23/2019 7:48 AM CDT) CHOLESTEROL 233(H) <=200 mg/dL 09/23/2019 2:24 PM CDT [facility] TRIGLYCERIDES 146 <150 mg/dL 09/23/2019 2:24 PM CDT [facility] HDL CHOLESTEROL 113.1 >40 mg/dL 0 2:24 PM CDT [facility] LDL 91 5 - 130 mg/dL 09/23/2019 2:24 PM CDT [facility] VLDL 29 5 - 55 mg/dL 09/23/2019 2:24 PM CDT [facility] CHOL/HDL RATIO 2.1 0.0 - 4.4 09/23/2019 2:24 PM CDT [facility] NON-HDL CHOLESTEROL 119.9 <130 mg/dL 09/23/2019 2:24 PM CDT [facility] LIPID FASTING 09/23/2019 2:24 PM CDT [facility] Blood Venipuncture / Unknown 09/23/2019 7:48 AM CDT 09/23/2019 7:48 AM CDT us Ronit Parish MD CHEMISTRY ORDERABLES Final R esult [facility] [address] [place] [address] * (ABNORMAL) CMP (COMPREHENSIVE METABOLIC PANEL) (09/23/2019 7:48 AM CDT) SODIUM 137 136 - 144 mmol/L 09/23/2019 2:24 PM CDT [facility] POTASSIUM 4.2 3.5 - 5.1 mmol/L 09/23/2019 2:24 PM CDT [facility] CHLORIDE 99(L) 100 - 110 mmol/L 09/23/2019 2:24 PM CDT [facility] CO2, VENOUS 25 22 - 32 mmol/L 09/23/2019 2:24 PM CDT [facility] ANION GAP 17.2 8.0 - 20.0 mmol/L 09/23/2019 2:24 PM CDT [facility] GLUCOSE 103(H) 70 - 99 mg/dL 09/23/2019 2:24 PM CDT [facility] BUN 14 6 - 20 mg/dL 09/23/2019 2:24 PM CDT [facility] CREATININE, BLOOD 0.66 0.60 - 1.10 mg/dL 09/23/2019 2:24 PM CDT [facility] BUN/CREATININE RATIO 21(H) 12 - 20 ratio 09/23/2019 2:24 PM CDT [facility] TOTAL PROTEIN 7.2 6.0 - 8.3 g/dL 09/23/2019 2:24 PM T [facility] ALBUMIN 4.6 3.5 - 5.2 g/dL 09/23/2019 2:24 PM CDT [facility] Comment: The colormetric methods used for the determination of Albumin may lead to falsely elevated test results in patients suffering from renal failure or insufficiency due to interference with other proteins. A/G RATIO 1.8 1.0 - 2.0 09/23/2019 2:24 PM CDT [facility] CALCIUM 9.7 8.9 - 10.3 mg/dL 09/23/2019 2:24 PM CDT [facility] T BILI 0.4 <=1.2 mg/dL 09/23/2019 2:24 PM CDT [facility] SGOT (AST) 21 <=32 U/L 09/23/2019 2:24 PM CDT [facility] SGPT (ALT) 17 <=33 U/L 09/23/2019 2:24 PM CDT [facility] ALKALINE PHOSPHATASE 82 35 - 105 U/L 09/23/2019 2:24 PM CDT [facility] GFR, EST. NONAFRICAN >60 >=60 09/23/2019 2:24 PM CDT [facility] GFR, EST. >60 >=60 020 2:24 PM CDT [facility] Comment: Creatinine Clearance is the preferred criteria for selecting drug dose adjustments in renally impaired patients. ??The GFR is provided as additional pertinent clinical information. GFR is reported in mL/min/1.73 sq m. Blood Venipuncture / Unknown 09/23/2019 7:48 AM CDT 09/23/2019 7:48 AM CDT us Ronit Parish MD CHEMISTRY ORDERABLES Final R esult [facility] [address] [facility] [place] [address] documented in this encounter Visit Diagnoses Diagnosis Essential hypertension Unspecified essential hypertension documented in this encounter Additional Health Concerns Assessment Noted Time PHQ-9 Depression Total Score: 0 04/01/19 20 9:00 AM ACID CONDITIONER documented as of this encounter Care Teams Analyst Market Intelligence Relationship Specialty Start Date End Date Ronit Parish MD [facility] [address] [address] PCP - General Family Medicine 03/01/15 04/15/22 Laurence Luque MD #[address] [address] Consulting Physician General Surgery 02/01/15 Clemencia Bennett MD [address] [place] [address] Family Medicine 01/30/18 documented as of this encounter
--- OUTSIDE RECORDS SUMMARY | 2024-03-15 01:51 | XMS_ITS | Encounter Summary ---
Author Organization [facility] Address [address] [place] [address] Phone Care Team Providers Care Save All Operator Name Role Phone Laurence Luque MD Unavailable + [phone] Ronit Parish MD Primary Care Provider + [phone] Clemencia Bennett MD Unavailable [phone] Encounter Details Date Type Department Care Team (Late st Contact Info) Description 04/06/2021 8:40 AM CUSTOMER EXPERIENCE INTERN Lab [facility] - Primary Care - [address] [place] [address] [facility] Essential [facility] Discharge Disposition: Discharged to home [...] have Coronavirus / COVID-19? No / Unsure 04/06/2021 8:26 AM CUSTOMER EXPERIENCE INTERN documented as of this encounter Progress Notes * Haley Nieves RMA - 04/06/2021 8:40 AM CST Angie presents for lab draw per order of Dr. Cottrell dated 04/06/21. Specimen collected from left antecubital without incident. sah OMER EXPERIENCE INTERN documented in this encounter Plan of Treatment Upcoming Encounters Date Type Department Care Team (Late st Contact Info) Description 03/23/2024 1:00 PM CUSTOMER EXPERIENCE INTERN Appointment [facility] Cardiology Services [address] [place] [address] Jose R Pearson MD [address] [place] [address] Discharge Disposition: Discharged to home or Selfcare 03/23/2024 2:30 PM CUSTOMER EXPERIENCE INTERN Appointment [facility] CT [address] [place] [address] Jose R Pearson MD [address] [place] [address] Discharge Disposition: Discharged to home or Selfcare 03/30/2024 10:00 AM CUSTOMER EXPERIENCE INTERN Office Visit [facility] Oncology Services [address] [place] [address] Jose R Pearson MD [address] [place] [address] Discharge Disposition: Discharged to home or Selfcare 03/30/2024 10:30 AM CUSTOMER EXPERIENCE INTERN Lab [facility] [address] [place] [address] Discharge Disposition: Discharged to home or Selfcare 03/31/2024 1:00 PM CUSTOMER EXPERIENCE INTERN Clinical Support [facility] [address] [place] [address] Jose R Pearson MD [address] [place] [address] Discharge Disposition: Discharged to home or Selfcare 04/28/2024 1:30 PM CUSTOMER EXPERIENCE INTERN [facility] [address] [place] [address] Discharge Disposition: Discharged to home or Selfcare documented as of this encounter Procedures Procedure Name Priority Date/Time Associated Diagnosis Comments HEMOGLOBIN A1C W/ ESTIMATED GLUCOSE Routine 04/06/2021 8:31 AM CUSTOMER EXPERIENCE INTERN Essential hypertension CBC WITH AUTO DIFFERENTIAL Routine 04/06/2021 8:31 AM CUSTOMER EXPERIENCE INTERN Essential hypertension THYROXINE (T4) FREE Routine 04/06/2021 8 :31 AM CUSTOMER EXPERIENCE INTERN Essential hypertension THYROID STIMULATING HORMONE (TSH) Routine 04/06/2021 8:31 AM CUSTOMER EXPERIENCE INTERN Essential hypertension LIPID PANEL Routine 04/06/2021 8:31 AM CUSTOMER EXPERIENCE INTERN Essential hypertension CMP (COMPREHENSIVE METABOLIC PANEL) Routine 04/06/2021 8:31 AM CUSTOMER EXPERIENCE INTERN Essential hypertension COMPLETE BLOOD COUNT (CBC) WITH DIFF Routine 04/06/2021 8:31 AM CUSTOMER EXPERIENCE INTERN Essential hypertension documented in this encounter Results * (ABNORMAL) CBC WITH AUTO DIFFERENTIAL (04/06/2021 8:31 AM CUSTOMER EXPERIENCE INTERN) WBC 5.37 4.00 - 12.00 10(3)/mcL 04/06/2021 1:20 PM CUSTOMER EXPERIENCE INTERN [facility] RBC 4.32 3.80 - 5.30 10(6)/mcL 04/06/2021 1:20 PM CUSTOMER EXPERIENCE INTERN [facility] HEMOGLOBIN (HGB) 13.2 12.0 - 15.8 g/dL 04/06/2021 1:20 PM [facility] HEMATOCRIT (HCT) 41.7 36.0 - 47.0 % 04/06/2021 1:20 PM [facility] MCV 96.5(H) 82.0 - 96.0 fL 04/06/2021 1:20 PM [facility] MCH 30.6 26.0 - 34.0 pg 04/06/2021 1:20 PM [facility] MCHC 31.7 31.0 - 36.0 g/dL 04/06/2021 1:20 PM [facility] PLATELET COUNT 271 140 - 440 10(3)/mcL 04/06/2021 1:20 PM [facility] RDW 12.9 11.8 - 15.5 % 04/06/2021 1:20 PM [facility] MPV 9.9 9.7 - 12.4 fL 04/06/2021 1:20 PM [facility] NEUTROPHILS 50.3 47.0 - 73.0 % 04/06/2021 1:20 PM [facility] LYMPHOCYTES 40.4 18.0 - 42.0 % 04/06/2021 1:20 PM [facility] MONOCYTES 6.5 4.0 - 12.0 % 04/06/2021 1:20 PM [facility] EOSINOPHILS 2.4 0.0 - 5.0 % 04/06/2021 1:20 PM [facility] BASOPHILS 0.4 0.0 - 1.0 % 04/06/2021 1:20 PM [facility] ABSOLUTE NEUTROPHILS 2.70 1.60 - 7.70 10(3)/mcL 04/06/2021 1:20 PM [facility] ABSOLUTE LYMPHOCYTES 2.17 1.30 - 3.20 10(3)/mcL 04/06/2021 1:20 PM [facility] ABSOLUTE MONOCYTES 0.35 0.20 - 1.00 10(3)/mcL 04/06/2021 1:20 PM CUSTOMER EXPERIENCE INTERN [facility] ABSOLUTE EOSINOPHIL 0.13 0.00 - 0.40 10(3)/mcL 04/06/2021 1:20 PM CUSTOMER EXPERIENCE INTERN [facility] ABSOLUTE BASOPHILS 0.02 0.00 - 0.10 10(3)/mcL 04/06/2021 1:20 PM CUSTOMER EXPERIENCE INTERN [facility] NRBC PER 100 WBC 0 04/06/19 1:20 PM CUSTOMER EXPERIENCE INTERN [facility] Blood Venipuncture / Unknown 04/06/2021 8:31 AM CUSTOMER EXPERIENCE INTERN 04/06/2021 8:31 AM CUSTOMER EXPERIENCE INTERN us Ronit Parish MD HEMATOLOGY ORDERABLES Final Result Performing Organization Address City/[facility]/ZIP Co de Phone Number [facility] [address] [place] [address] * THYROXINE (T4) FREE (04/06/2021 8:31 AM CUSTOMER EXPERIENCE INTERN) T4 FREE 1.3 0.9 - 1.7 ng/dL 04/06/2021 2:13 PM CUSTOMER EXPERIENCE INTERN [facility] Blood Venipuncture / Unknown 04/06/2021 8:31 AM CUSTOMER EXPERIENCE INTERN 04/06/2021 8:31 AM CUSTOMER EXPERIENCE INTERN us Ronit Parish MD CHEMISTRY ORDERABLES Final R esult [facility] [address] [place] [address] * THYROID STIMULATING HORMONE (TSH) (04/06/2021 8:31 AM CUSTOMER EXPERIENCE INTERN) TSH 1.180 0.270 - 4.200 mIU/L 04/06/2021 2:13 PM CUSTOMER EXPERIENCE INTERN [facility] Blood Venipuncture / Unknown 04/06/2021 8:31 AM CUSTOMER EXPERIENCE INTERN 04/06/2021 8:31 AM CUSTOMER EXPERIENCE INTERN Ronit Parish MD CHEMISTRY ORDERABLES Final R esult Performing Organization Address City/[facility]/ZIP Co de Phone Number [facility] [address] [place] [address] * HEMOGLOBIN A1C W/ ESTIMATED GLUCOSE (04/06/2021 8:31 AM CUSTOMER EXPERIENCE INTERN) HGB-A1C 5.5 4.0 - 6.0 % 04/06/2021 3:04 PM CUSTOMER EXPERIENCE INTERN [facility] Est Average Glucose 111.2 mg/dL 04/06/2021 3:04 PM CUSTOMER EXPERIENCE INTERN [facility] Blood Venipuncture / Unknown 04/06/2021 8:31 AM CUSTOMER EXPERIENCE INTERN 04/06/2021 8:31 AM CUSTOMER EXPERIENCE INTERN Narrative [facility] - 04/06/2021 3:04 PM CUSTOMER EXPERIENCE INTERN HEMOGLOBIN A1C: DIABETIC PATIENTS: WELL-CONTROLLED: ?? 6.2 - 7.0 INTERMEDIATE WELL-CONTROLLED: ??7.0 - 9.0 POORLY-CONTROLLED: ??>9.0 Ronit Parish MD CHEMISTRY ORDERABLES Final R esult Performing Organization Address City/[facility] Co de Phone Number [facility] [address] [place] [address] * (ABNORMAL) LIPID PANEL (04/06/2021 8:31 AM CUSTOMER EXPERIENCE INTERN) CHOLESTEROL 201(H) <=200 mg/dL 04/06/2021 2:13 PM CUSTOMER EXPERIENCE INTERN [facility] TRIGLYCERIDES 67 <150 mg/dL 04/06/2021 2:13 PM CUSTOMER EXPERIENCE INTERN [facility] HDL CHOLESTEROL 117.1 >40 mg/dL 2:13 PM CUSTOMER EXPERIENCE INTERN [facility] LDL 71 5 - 130 mg/dL 04/06/2021 2:13 PM CUSTOMER EXPERIENCE INTERN [facility] VLDL 13 5 - 55 mg/dL 04/06/2021 2:13 PM CUSTOMER EXPERIENCE INTERN [facility] CHOL/HDL RATIO 1.7 0.0 - 4.4 04/06/2021 2:13 PM CUSTOMER EXPERIENCE INTERN [facility] NON-HDL CHOLESTEROL 83.9 <130 mg/dL 04/06/2021 2:13 PM [facility] IS THE PATIENT REQUIRED TO BE FASTING? Yes 04/06/2021 2:13 PM [facility] Blood Venipuncture / Unknown 04/06/2021 8:31 AM CUSTOMER EXPERIENCE INTERN 04/06/2021 8:31 AM CUSTOMER EXPERIENCE INTERN us Ronit Parish MD CHEMISTRY ORDERABLES Final R esult [facility] [address] [place] [address] * CMP (COMPREHENSIVE METABOLIC PANEL) (04/06/2021 8:31 AM CUSTOMER EXPERIENCE INTERN) SODIUM 139 136 - 144 mmol/L 04/06/2021 2:13 PM [facility] POTASSIUM 4.2 3.5 - 5.1 mmol/L 04/06/2021 2:13 PM [facility] CHLORIDE 105 100 - 110 mmol/L 04/06/2021 2:13 PM [facility] CO2, VENOUS 24 22 - 32 mmol/L 04/06/2021 2:13 PM [facility] ANION GAP 14.2 8.0 - 20.0 mmol/L 04/06/2021 2:13 PM CUSTOMER EXPERIENCE INTERN [facility] GLUCOSE 88 70 - 99 mg/dL 04/06/2021 2:13 PM [facility] BUN 14 6 - 20 mg/dL 04/06/2021 2:13 PM [facility] CREATININE, BLOOD 0.78 0.60 - 1.10 mg/dL 04/06/2021 2:13 PM [facility] BUN/CREATININE RATIO 18 12 - 20 ratio 04/06/2021 2:13 PM [facility] TOTAL PROTEIN 6.9 6.0 - 8.3 g/dL 04/06/2021 2:13 PM [facility] ALBUMIN 4.6 3.5 - 5.2 g/dL 04/06/2021 2:13 PM [facility] Comment: The colormetric methods used for the determination of Albumin may lead to falsely elevated test results in patients suffering from renal failure or insufficiency due to interference with other proteins. A/G RATIO 2.0 1.0 - 2.0 04/06/2021 2:13 PM [facility] CALCIUM 10.0 8.9 - 10.3 mg/dL 04/06/2021 2:13 PM [facility] T BILI 0.4 <=1.2 mg/dL 04/06/2021 2:13 PM [facility] SGOT (AST) 22 <=32 U/L 04/06/2021 2:13 PM [facility] SGPT (ALT) 17 <=41 U/L 04/06/2021 2:13 PM [facility] ALKALINE PHOSPHATASE 92 35 - 105 U/L 04/06/2021 2:13 PM [facility] GFR, EST. NONAFRICAN >60 >=60 04/06/2021 2:13 PM [facility] GFR, EST. >60 >=60 022 2:13 PM [facility] Comment: Creatinine Clearance is the preferred criteria for selecting drug dose adjustments in renally impaired patients. ??The GFR is provided as additional pertinent clinical information. GFR is reported in mL/min/1.73 sq m. IS THE PATIENT REQUIRED TO BE FASTING? No 04/06/2021 2:13 PM [facility] Blood Venipuncture / Unknown 04/06/2021 8:31 AM CUSTOMER EXPERIENCE INTERN 04/06/2021 8:31 AM CUSTOMER EXPERIENCE INTERN us Ronit Parish MD CHEMISTRY ORDERABLES Final R esult [facility] [facility] [place] [address] documented in this encounter Visit Diagnoses Diagnosis Essential hypertension Unspecified essential hypertension documented in this encounter Additional Health Concerns Assessment Noted Time PHQ-9 Depression Total Score: 0 04/01/19 20 9:00 AM CUSTOMER EXPERIENCE INTERN documented as of this encounter Care Teams Save All Operator Relationship Specialty Start Date End Date Ronit Parish MD #[address] [phone] PCP - General Family Medicine 03/01/15 04/15/22 Laurence Luque MD #[address] [address] Consulting Physician General Surgery 02/01/15 Clemencia Bennett MD [address] [place] [address] Family Medicine 01/30/18 documented as of this encounter
--- OUTSIDE RECORDS SUMMARY | 2024-03-15 01:51 | XMS_ITS | Encounter Summary ---
Author Organization [facility] Address [address] [place] [address] Phone Care Team Providers Care Block Sawyer Name Role Phone Laurence Luque MD Unavailable + [phone] Ronit Parish MD Primary Care Provider + [phone] Clemencia Bennett MD Unavailable [phone] Encounter Details Date Type Department Care Team (Late st Contact Info) Description 07/11/2020 10:20 AM CDT Lab [facility] - Primary Care - [address] [address] [facility] Gastroesophageal reflux disease, unspecified whether esophagitis present; Essential hypertension; Obesity (BMI 30.0-34.9) Discharge Disposition: [...] Progress Notes * Haley Nieves RMA - 07/11/2020 10:20 AM CDT Angie presents for lab draw per order of Dr. Cottrell dated 07/11/20. Specimen collected from right antecubital without incident. sah documented in this encounter Plan of Treatment Upcoming Encounters Date Type Department Care Team (Late st Contact Info) Description 03/23/2024 1:00 PM TURN SEWER Appointment [facility] Cardiology Services [address] [place] [address] Jose R Pearson MD [address] [place] [address] Discharge Disposition: Discharged to home or Selfcare 03/23/2024 2:30 PM TURN SEWER Appointment [facility] [address] [place] [address] Jose R Pearson MD [address] [place] [address] Discharge Disposition: Discharged to home or Selfcare 03/30/2024 10:00 AM TURN SEWER Office Visit [facility] Oncology Services [address] [place] [address] Jose R Pearson MD [address] [place] [address] Discharge Disposition: Discharged to home or Selfcare 03/30/2024 10:30 AM TURN SEWER Lab [facility] Oncology Services [address] [place] [address] Discharge Disposition: Discharged to home or Selfcare 03/31/2024 1:00 PM TURN SEWER Clinical Support [facility] Oncology Services [address] [place] [address] Jose R Pearson MD [address] [place] [address] Discharge Disposition: Discharged to home or Selfcare 04/28/2024 1:30 PM TURN SEWER Clinical Support [facility] Oncology Services [address] [place] [address] Discharge Disposition: Discharged to home or Selfcare documented as of this encounter Procedures Procedure Name Priority Date/Time Associated Diagnosis Comments HEMOGLOBIN A1C W/ ESTIMATED GLUCOSE Routine 07/11/2020 9:55 AM CDT Gastroesophageal reflux disease, unspecified whether esophagitis present Essential hypertension Obesity (BMI 30.0-34.9) CBC WITH AUTO DIFFERENTIAL Routine 07/11/2020 9:55 AM CDT Gastroesophageal reflux disease, unspecified whether esophagitis present Essential hypertension Obesity (BMI 30.0-34.9) THYROXINE (T4) FREE Routine 07/11/2020 9 :55 AM CDT Gastroesophageal reflux disease, unspecified whether esophagitis present Essential hypertension Obesity (BMI 30.0-34.9) THYROID STIMULATING HORMONE (TSH) Routine 07/11/2020 9:55 AM CDT Gastroesophageal reflux disease, unspecified whether esophagitis present Essential hypertension Obesity (BMI 30.0-34.9) LIPID PANEL Routine 07/11/2020 9:55 AM CDT Gastroesophageal reflux disease, unspecified whether esophagitis present Essential hypertension Obesity (BMI 30.0-34.9) CMP (COMPREHENSIVE METABOLIC PANEL) Routine 07/11/2020 9:55 AM CDT Gastroesophageal reflux disease, unspecified whether esophagitis present Essential hypertension Obesity (BMI 30.0-34.9) COMPLETE BLOOD COUNT (CBC) WITH DIFF Routine 07/11/2020 9:55 AM CDT Gastroesophageal reflux disease, unspecified whether esophagitis present Essential hypertension Obesity (BMI 30.0-34.9) documented in this encounter Results * (ABNORMAL) CBC WITH AUTO DIFFERENTIAL (07/11/2020 9:55 AM CDT) WBC 5.40 4.00 - 12.00 10(3)/mcL 07/11/2020 12:38 PM CDT [facility] RBC 4.56 3.80 - 5.30 10(6)/mcL 07/11/2020 12:38 PM CDT [facility] HEMOGLOBIN (HGB) 13.9 12.0 - 15.8 g/dL 07/11/2020 12:38 PM CDT [facility] HEMATOCRIT (HCT) 42.4 36.0 - 47.0 % 07/11/2020 12:38 PM CDT [facility] MCV 93.0 82.0 - 96.0 fL 07/11/2020 12:38 PM CDT [facility] MCH 30.5 26.0 - 34.0 pg 07/11/2020 12:38 PM CDT [facility] MCHC 32.8 31.0 - 36.0 g/dL 07/11/2020 12:38 PM CDT [facility] PLATELET COUNT 245 140 - 440 10(3)/mcL 07/11/2020 12:38 PM CDT [facility] RDW 12.1 11.8 - 15.5 % 07/11/2020 12:38 PM CDT [facility] MPV 10.0 9.7 - 12.4 fL 07/11/2020 12:38 PM CDT [facility] NEUTROPHILS 46.7(L) 47.0 - 73.0 % 07/11/2020 12:38 PM CDT [facility] LYMPHOCYTES 42.8(H) 18.0 - 42.0 % 07/11/2020 12:38 PM CDT [facility] MONOCYTES 6.7 4.0 - 12.0 % 07/11/2020 12:38 PM CDT [facility] EOSINOPHILS 3.1 0.0 - 5.0 % 07/11/2020 12:38 PM CDT [facility] BASOPHILS 0.7 0.0 - 1.0 % 07/11/2020 12:38 PM CDT [facility] ABSOLUTE NEUTROPHILS 2.52 1.60 - 7.70 10(3)/mcL 07/11/2020 12:38 PM CDT [facility] ABSOLUTE LYMPHOCYTES 2.31 1.30 - 3.20 10(3)/[facility] 07/11/2020 12:38 PM CDT [facility] ABSOLUTE MONOCYTES 0.36 0.20 - 1.00 10(3)/[facility] 07/11/2020 12:38 PM CDT [facility] ABSOLUTE EOSINOPHIL 0.17 0.00 - 0.40 10(3)/[facility] 07/11/2020 12:38 PM CDT [facility] ABSOLUTE BASOPHILS 0.04 0.00 - 0.10 10(3)/[facility] 07/11/2020 12:38 PM CDT [facility] NRBC PER 100 WBC 0 07/12/19 21 12:38 PM CDT [facility] Blood Venipuncture / Unknown 07/11/2020 9:55 AM CDT 07/11/2020 9:55 AM CDT us Ronit Parish MD HEMATOLOGY ORDERABLES Final Result [facility] [address] [place] [address] * THYROXINE (T4) FREE (07/11/2020 9:55 AM CDT) [facility] T4 FREE 1.2 0.9 - 1.7 ng/dL 07/11/2020 1:53 PM CDT [facility] Blood Venipuncture / Unknown 07/11/2020 9:55 AM CDT 07/11/2020 9:55 AM CDT us Ronit Parish MD CHEMISTRY ORDERABLES Final R esult Performing Organization Address City/[facility] Co de Phone Number [facility] [address] [place] [address] * THYROID STIMULATING HORMONE (TSH) (07/11/2020 9:55 AM CDT) TSH 1.970 0.270 - 4.200 mIU/L 07/11/2020 1:53 PM CDT [facility] Blood Venipuncture / Unknown 07/11/2020 9:55 AM CDT 07/11/2020 9:55 AM CDT us Ronit Parish MD CHEMISTRY ORDERABLES Final R esult Performing Organization Address City/[facility] Co de Phone Number [facility] [address] [place] [address] * HEMOGLOBIN A1C W/ ESTIMATED GLUCOSE (07/11/2020 9:55 AM CDT) HGB-A1C 5.5 4.0 - 6.0 % 07/11/2020 1:31 PM CDT [facility] Est Average Glucose 111.2 mg/dL 07/11/2020 1:31 PM CDT [facility] Blood Venipuncture / Unknown 07/11/2020 9:55 AM CDT 07/11/2020 9:55 AM CDT Narrative [facility] - 07/11/2020 1:31 PM CDT HEMOGLOBIN A1C: DIABETIC PATIENTS: WELL-CONTROLLED: ?? 6.2 - 7.0 INTERMEDIATE WELL-CONTROLLED: ??7.0 - 9.0 POORLY-CONTROLLED: ??>9.0 us Ronit Parish MD CHEMISTRY ORDERABLES Final R esult Performing Organization Address City/[facility]/ZIP Co de Phone Number [facility] [address] [place] [address] * (ABNORMAL) LIPID PANEL (07/11/2020 9:55 AM CDT) CHOLESTEROL 219(H) <=200 mg/dL 07/11/2020 1:53 PM CDT [facility] TRIGLYCERIDES 84 <150 mg/dL 07/11/2020 1:53 PM CDT [facility] HDL CHOLESTEROL 111.7 >40 mg/dL 1:53 PM CDT [facility] LDL 91 5 - 130 mg/dL 07/11/2020 1:53 PM CDT [facility] VLDL 17 5 - 55 mg/dL 07/11/2020 1:53 PM CDT [facility] CHOL/HDL RATIO 2.0 0.0 - 4.4 07/11/2020 1:53 PM CDT [facility] NON-HDL CHOLESTEROL 107.3 <130 mg/dL 07/11/2020 1:53 PM CDT [facility] Blood Venipuncture / Unknown 07/11/2020 9:55 AM CDT 07/11/2020 9:55 AM CDT us Ronit Parish MD CHEMISTRY ORDERABLES Final R esult [facility] [address] [place] [address] * CMP (COMPREHENSIVE METABOLIC PANEL) (07/11/2020 9:55 AM CDT) SODIUM 139 136 - 144 mmol/L 07/11/2020 1:53 PM CDT [facility] POTASSIUM 4.0 3.5 - 5.1 mmol/L 07/11/2020 1:53 PM CDT [facility] CHLORIDE 101 100 - 110 mmol/L 07/11/2020 1:53 PM CDT [facility] CO2, VENOUS 26 22 - 32 mmol/L 07/11/2020 1:53 PM [facility] ANION GAP 16.0 8.0 - 20.0 mmol/L 07/11/2020 1:53 PM [facility] GLUCOSE 90 70 - 99 mg/dL 07/11/2020 1:53 PM [facility] BUN 12 6 - 20 mg/dL 07/11/2020 1:53 PM [facility] CREATININE, BLOOD 0.63 0.60 - 1.10 mg/dL 07/11/2020 1:53 PM [facility] BUN/CREATININE RATIO 19 12 - 20 ratio 07/11/2020 1:53 PM [facility] TOTAL PROTEIN 7.1 6.0 - 8.3 g/dL 07/11/2020 1:53 PM [facility] ALBUMIN 4.3 3.5 - 5.2 g/dL 07/11/2020 1:53 PM [facility] Comment: The colormetric methods used for the determination of Albumin may lead to falsely elevated test results in patients suffering from renal failure or insufficiency due to interference with other proteins. A/G RATIO 1.5 1.0 - 2.0 07/11/2020 1:53 PM [facility] CALCIUM 9.7 8.9 - 10.3 mg/dL 07/11/2020 1:53 PM [facility] T BILI 0.6 <=1.2 mg/dL 07/11/2020 1:53 PM T [facility] SGOT (AST) 21 <=32 U/L 07/11/2020 1:53 PM [facility] SGPT (ALT) 16 <=41 U/L 07/11/2020 1:53 PM [facility] ALKALINE PHOSPHATASE 81 35 - 105 U/L 07/11/2020 1:53 PM T [facility] GFR, EST. NONAFRICAN >60 >=60 07/11/2020 1:53 PM CDT [facility] GFR, EST. >60 >=60 021 1:53 PM CDT [facility] Comment: Creatinine Clearance is the preferred criteria for selecting drug dose adjustments in renally impaired patients. ??The GFR is provided as additional pertinent clinical information. GFR is reported in mL/min/1.73 sq m. Blood Venipuncture / Unknown 07/11/2020 9:55 AM CDT 07/11/2020 9:55 AM CDT us Ronit Parish MD CHEMISTRY ORDERABLES Final R esult [facility] [address] [place] [address] documented in this encounter Visit Diagnoses Diagnosis Gastroesophageal reflux disease, unspecified whether esophagitis present Essential hypertension Unspecified essential hypertension Obesity (BMI 30.0-34.9) Obesity, unspecified documented in this encounter Additional Health Concerns Assessment Noted Time PHQ-9 Depression Total Score: 0 04/01/19 20 9:00 AM TURN SEWER documented as of this encounter Care Teams Block Sawyer Relationship Specialty Start Date End Date Ronit Parish MD [address] [address] PCP - General Family Medicine 03/01/15 04/15/22 Laurence Luque MD [address] [address] Consulting Physician General Surgery 02/01/15 Clem[place] [address] Family Medicine 01/30/18 documented as of this encounter
--- OUTSIDE RECORDS SUMMARY | 2024-03-15 01:51 | XMS_ITS | Encounter Summary ---
Author Organization [facility] Care Team Providers Care Le[employer] Senior Specialist Name Role Phone Laurence Luque MD Unavailable + [phone] Ronit Parish MD Primary Care Provider + [phone] Clemencia Bennett MD Unavailable [phone] Encounter Details Date Type Department Care Team (Latest Contact Info) Description 08/09/2020 Travel Social History Tobacco Use Types Packs/Day [...] have Coronavirus / COVID-19? No / Unsure 08/09/2020 9:33 AM CDT documented as of this encounter Plan of Treatment Upcoming Encounters Date Type Department Care Team (Late st Contact Info) Description 03/23/2024 1:00 PM SALES AND PRODUCTION MANAGER Appointment [facility] Cardiology Services [address] [place] [address] Jose R Pearson MD [address] [place] [address] Discharge Disposition: Discharged to home or Selfcare 03/23/2024 2:30 PM SALES AND PRODUCTION MANAGER [facility] [address] [place] [address] Jose R Pearson MD [address] [place] [address] Discharge Disposition: Discharged to home or Selfcare 03/30/2024 10:00 AM SALES AND PRODUCTION MANAGER Office Visit [facility] Oncology Services [address] [place] [address] Jose R Pearson MD [address] [place] [address] Discharge Disposition: Discharged to home or Selfcare 03/30/2024 10:30 AM SALES AND PRODUCTION MANAGER Lab [facility] Oncology Services [address] [place] [address] Discharge Disposition: Discharged to home or Selfcare 03/31/2024 1:00 PM SALES AND PRODUCTION MANAGER Clinical Support [facility] Oncology Services [address] [place] [address] Jose R Pearson MD [address] [place] [address] Discharge Disposition: Discharged to home or Selfcare 04/28/2024 1:30 PM SALES AND PRODUCTION MANAGER Clinical Support [facility] Oncology Services [address] [place] [phone] Discharge Disposition: Discharged to home or Selfcare documented as of this encounter Visit Diagnoses Not on filedocumented in this encounter Additional Health Concerns Assessment Noted Time PHQ-9 Depression Total Score: 0 04/01/19 9:00 AM SALES AND PRODUCTION MANAGER documented as of this encounter Care Teams Lean [employer] Senior Specialist Relationship Specialty Start Date End Date Ronit Parish MD [address] [address] PCP - General Family Medicine 03/01/15 04/15/22 Laurence Luque MD [address] [phone] Consulting Physician General Surgery 02/01/15 Clemencia Bennett MD [address] [place] [address] Family Medicine 01/30/18 documented as of this encounter
--- OUTSIDE RECORDS SUMMARY | 2024-03-15 01:51 | XMS_ITS | Encounter Summary ---
Author Organization [facility] Address [address] [place] [address] Phone Care Team Providers Care High School Teacher Name Role Phone Laurence Luque MD Unavailable + [phone] Ronit Parish MD Primary Care Provider + [phone] Clemencia Bennett MD Unavailable [phone] Encounter Details Date Type Department Care Team (Latest Contact Info) Description 09/30/2019 11:45 AM CDT - 09/30/2019 11:59 PM CDT [facility] [place] [address] [place] [address] Ronit Parish MD [address] [place] [address] Discharge Disposition: Discharged to home or Selfcare [...] have Coronavirus / COVID-19? No / Unsure 09/30/2019 10:30 AM CDT documented as of this encounter Medications at Time of Discharge Multiple Vitamin (MULTI-VITAMIN PO) Take 1 Tab by mouth daily. fluticasone (FLONASE) 50 MCG/ACT SuspensionIndication s:Acute URI 2 Sprays by Nasal route daily. Use in each nostril as directed. 1 Bottle 04/09/2019 0 metoprolol tartrate (LOPRESSOR) 25 MG TabletIndications:Es sential hypertension Take 1 tablet by mouth twice daily 180 Tab 2 08/23/2019 1 olopatadine (PATANOL) 0.1 % SolutionIndications: Allergic conjunctivitis of left eye Place 1 Drop in affected eye(s) 2 times daily as needed for Allergies. 5 mL 04/09/2019 0 omeprazole (PRILOSEC) 20 MG CAPSULE DELAYED RELEASEIndications:G astroesophageal reflux disease, esophagitis presence not specified Take 1 Cap by mouth daily as needed for Other. 90 Cap 01/30/2018 0 Phentermine HCl 15 MG CapsuleIndications:O besity (BMI 30.0-34.9) Take 1 Cap by mouth daily for 30 days. 30 Cap 2 09/30/2019 0 documented as of this encounter Plan of Treatment Upcoming Encounters Date Type Department Care Team (Late st Contact Info) Description 03/23/2024 1:00 PM MASTIC FLOOR LAYER [facility] [address] [place] [address] Jose R Pearson MD [address] [place] [address] Discharge Disposition: Discharged to home or Selfcare 03/23/2024 2:30 PM MASTIC FLOOR LAYER [facility] [address] [place] [address] Jose R Pearson MD [address] [place] [address] Discharge Disposition: Discharged to home or Selfcare 03/30/2024 10:00 AM MASTIC FLOOR LAYER Office Visit [facility] Oncology Services [address] [place] [address] Jose R Pearson MD [address] [place] [address] Discharge Disposition: Discharged to home or Selfcare 03/30/2024 10:30 AM MASTIC FLOOR LAYER Lab [facility] Oncology Services [address] [place] [address] Discharge Disposition: Discharged to home or Selfcare 03/31/2024 1:00 PM MASTIC FLOOR LAYER Clinical Support [facility] Oncology Services [address] [place] [address] Jose R Pearson MD [address] [place] [address] Discharge Disposition: Discharged to home or Selfcare 04/28/2024 1:30 PM MASTIC FLOOR LAYER Clinical Support [facility] Oncology Services [address] [place] [address] Discharge Disposition: Discharged to home or Selfcare documented as of this encounter Procedures Procedure Name Priority Date/Time Associated Diagnosis Comments XR CHEST 2 VIEWS Routine 09/30/2019 11:5 9 AM CDT Pulmonary nodule documented in this encounter Results * XR CHEST 2 VIEWS (09/30/2019 11:59 AM CDT) Anatomical Region Laterality Modality Chest N/A Digital Radiogra phy 10/01/2019 11:0 1 AM CDT Impressions 10/08/2019 8:58 AM CDT IMPRESSION: ?? No acute cardiopulmonary abnormality. Narrative 10/08/2019 8:58 AM CDT EXAM DESCRIPTION: ?? XR CHEST 2 VIEWS REASON FOR STUDY: ?? Solitary pulmonary nodule TECHNIQUE: ?? Frontal and lateral radiographic views of the chest acquired. COMPARISON: ?? 05/25/2019 FINDINGS: ??LUNGS/PLEURA: ??No focal consolidation or pneumothorax. ?? Previously noted nodule in the left lower lobe is no longer clearly identified.. HEART/MEDIASTINUM: ??Heart size is normal. Normal mediastinal and hilar contours. HARDWARE/LINES/TUBES: ??None. BONES: ??No acute findings. OTHER: ??No other significant finding. THIS IS AN ELECTRONICALLY VERIFIED FINAL REPORT 10/01/2019 11:01 AM - Electronically signed by Jon Murdock M.D. NC: NC D: ??10/01/2019 11:01 AM T: ??10/01/2019 11:01 AM Report ID: [id number] Reading Location: ??[id number] Procedure Note Jon Murdock MD - 10/08/2019 EXAM DESCRIPTION: XR CHEST 2 VIEWS REASON FOR STUDY: Solitary pulmonary nodule TECHNIQUE: Frontal and lateral radiographic views of the chest acquired. COMPARISON: 05/25/2019 FINDINGS: LUNGS/PLEURA: No focal consolidation or pneumothorax. Previously noted nodule in the left lower lobe is no longer clearly identified.. HEART/MEDIASTINUM: Heart size is normal. Normal mediastinal and hilar contours. HARDWARE/LINES/TUBES: None. BONES: No acute findings. OTHER: No other significant finding. THIS IS AN ELECTRONICALLY VERIFIED FINAL REPORT 10/01/2019 11:01 AM - Electronically signed by Jon Murdock M.D. NC: NC Report ID: [id number] Reading Location: [id number] IMPRESSION: No acute cardiopulmonary abnormality. Ronit Parish MD IMG DIAGNOSTIC ORDERABLES Fi nal Result documented in this encounter Visit Diagnoses Not on filedocumented in this encounter Additional Health Concerns Assessment Noted Time PHQ-9 Depression Total Score: 0 04/01/19 20 9:00 AM MASTIC FLOOR LAYER documented as of this encounter Care Teams High School Teacher Relationship Specialty Start Date End Date Ronit Parish MD [address] [phone] PCP - General Family Medicine 03/01/15 04/15/22 Laurence Luque MD #[address] [address] Consulting Physician General Surgery 02/01/15 Clemencia Bennett MD [address] [place] [address] Family Medicine 01/30/18 documented as of this encounter
--- OUTSIDE RECORDS SUMMARY | 2024-03-15 01:51 | XMS_ITS | Encounter Summary ---
Author Organization [facility] Address [address] [place] [address] Phone Care Team Providers Care 7Th Grade Social Studies Teacher Name Role Phone Laurence Luque MD Unavailable + [phone] Ronit Parish MD Primary Care Provider + [phone] Clemencia Bennett MD Unavailable [phone] Reason for Visit * Reason Comments Obesity weight check Encounter Details Date Type Department Care Team (Late st Contact Info) Description 12/31/2019 10:45 AM CDT Office Visit [facility] - [place] [address] [place] [address] Ronit Parish MD [address] [place] [address] Essential hypertension (Primary Dx); Obesity (BMI 30.0-34.9); Gastroesophageal reflux disease, unspecified whether esophagitis present Discharge Disposition: Discharged to home or Selfcare [...] have Coronavirus / COVID-19? No / Unsure 12/31/2019 10:28 AM CDT documented as of this encounter Last Filed Vital Signs Vital Sign Reading Time Taken Comments Blood Pressure 122/92 12/31/2019 10:32 AM CDT Pulse 57 12/31/2019 10:32 AM CDT Temperature 36.4 ??C (97.6 ??F) 12/31/2019 10:32 AM C DT Respiratory Rate 20 12/31/2019 10:32 AM CDT Oxygen Saturation 98% 12/31/2019 10:32 AM CDT Inhaled Oxygen Concentration - - Weight 71.4 kg (157 lb 6.4 oz) 12/31/2019 10:32 AM CDT Height 154.9 cm (5' 1 ) 12/31/2019 10:32 AM CDT Body Mass Index 29.74 12/31/2019 10:32 AM CDT documented in this encounter Progress Notes * Mel Villalpando, ROB - 12/31/2019 10:45 AM CDT Angie Cash Derek, 49 y.o., female is here for Obesity (weight check) Medication Refills: Patient reports/denies need for medication refills. Orders Pended: no Requested Prescriptions Pending Prescriptions Disp Refills ??? Phentermine HCl 15 MG Capsule 14 Cap Home Medications Medication Sig Start Date End Date Taking? Authorizing Provider fluticasone (FLONASE) 50 MCG/ACT Suspension 2 Sprays by Nasal route daily. Use in each nostril as directed. Patient not taking: Reported on 12/31/2019 04/09/19 Ronit Parish MD metoprolol tartrate (LOPRESSOR) 25 MG Tablet Take 1 tablet by mouth twice daily 08/23/19 Yes Ronit Parish MD Multiple Vitamin (MULTI-VITAMIN PO) Take 1 Tab by mouth daily. Provider, MD Ernesto olopatadine (PATANOL) 0.1 % Solution Place 1 Drop in affected eye(s) 2 times daily as needed for Allergies. Patient not taking: Reported on 12/31/2019 04/09/19 Ronit Parish MD omeprazole (PRILOSEC) 20 MG CAPSULE DELAYED RELEASE Take 1 Cap by mouth daily as needed for Other. Patient not taking: Reported on 12/31/2019 01/30/18 Ronit Parish MD Phentermine HCl 15 MG Capsule TK 1 C PO QD 11/30/19 Yes Provider, MD Ernesto There are no [...] Due ??? Zoster Immunization (1 of 2) 2018 ??? Pap Smear 06/16/2019 ??? Influenza Immunization (1) 11/16/2019 Orders Pended: no The following BPA's have been addressed with the patient today: Flu and Pap * Ronit Parish MD - 12/31/2019 10:45 AM CDT Subjective Chief Complaint Patient presents with ??? Obesity weight check History of Present Illness Angie presents here for a followup and to have her weight checked. On her last visit on 09/30/2019 I started her on phentermine 15 mg once daily. At that time she was weighing 169 pounds. Today she has lost 12 pounds and weighs 157 pounds, which is adequate. Her current BMI is 29.74. Blood pressureis slightly elevated, especially the diastolic blood pressure. BP today was 122/92 mmHg. She continues to take metoprolol 25 mg b.i.d. She denies having any headache, visual disturbance, seizures, chest pain, palpitations or shortness of breath. She denies having any anxiety or insomnia symptoms. IJN: [id number] ROS: RESPIRATORY: Patient denies shortness of breath, chronic cough or other respiratory problems. CARDIAC: Patient denies chest pain, chest pressure, palpitations, diaphoresis, chest pain radiating into arms or neck. PMH/PSH/FH/SH/medications/allergies/health maintenance entries were reviewed with patient and updated. Objective: Physical Exam Vitals: 12/31/19 1032 BP: (!) 122/92 Pulse: 57 Resp: 20 Temp: 97.6 ??F (36.4 ??C) TempSrc: Temporal SpO2: 98% Weight: 157 lb 6.4 oz (71.4 kg) Height: 5' 1 (1.549 m) Body mass index is 29.74 kg/m??. Constitutional: She appears well-developed and well-nourished. No distress. HENT: Head: Atraumatic, normocephalic. Cardiovascular: Normal rate, regular rhythm, normal heart sounds and intact distal pulses. No murmur/rubs/gallops heard. Pulmonary/Chest: clear to auscultation bilaterally, no crepts or wheezes. Musculoskeletal/extremities: no pedal edema, no calf tenderness. Skin: Skin is warm and dry. Assessment and Plan Angie Reed presents here for Obesity (weight check) 1. Essential hypertension - diastolic BP high. Continue metoprolol 25 mg b.i.d.. 2. Obesity (BMI 30.0-34.9) - current BMI is 29.74. - has lost 12 lb in 3 months on phentermine 15 mg q.d.. Continue. 3. Gastroesophageal reflux disease, unspecified whether esophagitis present - symptoms have resolved. Does not take omeprazole anymore. Followup: Return in about 3 months (around 04/01/2020) for yearly physical, extended 30 min visit.with labs done 1 week prior to next appointment. The patient understood the plan, questions were answered and AVS including the updated medication list was provided to the patient. Documentation for this visit on 12/31/19 was completed using a template. I have seen and examined the patient. Everything documented was personally performed at this visit with the necessary additions, deletions and changes made as appropriate. Ronit Parish MD documented in this encounter Plan of Treatment Upcoming Encounters Date Type Department Care Team (Late st Contact Info) Description 03/23/2024 1:00 PM OVEN OPERATOR Appointment [facility] Cardiology Services [address] [place] [phone] Jose R Pearson MD [address] [place] [address] Discharge Disposition: Discharged to home or Selfcare 03/23/2024 2:30 PM OVEN OPERATOR Appointment [facility] [address] [facility] [place] [address] Jose R Pearson MD [address] [place] [address] Discharge Disposition: Discharged to home or Selfcare 03/30/2024 10:00 AM OVEN OPERATOR Office Visit [facility] Oncology Services [address] [place] [address] Jose R Pearson MD [address] [place] [address] Discharge Disposition: Discharged to home or Selfcare 03/30/2024 10:30 AM OVEN OPERATOR Lab [facility] [address] [place] [phone] Discharge Disposition: Discharged to home or Selfcare 03/31/2024 1:00 PM OVEN OPERATOR Clinical Support [facility] [address] [place] [address] Jose R Pearson MD [address] [place] [address] Discharge Disposition: Discharged to home or Selfcare 04/28/2024 1:30 PM OVEN OPERATOR Clinical Support [facility] [address] [place] [address] Discharge Disposition: Discharged to home or Selfcare documented as of this encounter Results * THYROXINE (T4) FREE (07/11/2020 9:55 AM CDT) Pathologist [facility] T4 FREE 1.2 0.9 - 1.7 ng/dL 07/11/2020 1:53 PM CDT [facility] Blood Venipuncture / Unknown 07/11/2020 9:55 AM CDT 07/11/2020 9:55 AM CDT Ronit Parish MD CHEMISTRY ORDERABLES Final R esult [facility] [address] [place] [address] * THYROID STIMULATING HORMONE (TSH) (07/11/2020 9:55 AM CDT) Pathologist [facility] TSH 1.970 0.270 - 4.200 mIU/L 07/11/2020 1:53 PM CDT [facility] Blood Venipuncture / Unknown 07/11/2020 9:55 AM CDT 07/11/2020 9:55 AM CDT Ronit Parish MD CHEMISTRY ORDERABLES Final R esult [facility] [address] [place] [address] * HEMOGLOBIN A1C W/ ESTIMATED GLUCOSE (07/11/2020 9:55 AM CDT) Pathologist [facility] HGB-A1C 5.5 4.0 - 6.0 % 07/11/2020 1:31 PM CDT [facility] Est Average Glucose 111.2 mg/dL 07/11/2020 1:31 PM CDT [facility] Blood Venipuncture / Unknown 07/11/2020 9:55 AM CDT 07/11/2020 9:55 AM CDT Narrative [facility] - 07/11/2020 1:31 PM CDT HEMOGLOBIN A1C: DIABETIC PATIENTS: WELL-CONTROLLED: ?? 6.2 - 7.0 INTERMEDIATE WELL-CONTROLLED: ??7.0 - 9.0 POORLY-CONTROLLED: ??>9.0 us Ronit Parish MD CHEMISTRY ORDERABLES Final R esult Performing Organization Address City/[facility]/ZIP Co de Phone Number [facility] [address] [place] [address] * (ABNORMAL) LIPID PANEL (07/11/2020 9:55 AM CDT) [facility] Signature CHOLESTEROL 219(H) <=200 mg/dL 07/11/2020 1:53 PM CDT [facility] TRIGLYCERIDES 84 <150 mg/dL 07/11/2020 1:53 PM CDT [facility] HDL CHOLESTEROL 111.7 >40 mg/dL 1:53 PM CDT [facility] LDL 91 5 - 130 mg/dL 07/11/2020 1:53 PM CDT [facility] VLDL 17 5 - 55 mg/dL 07/11/2020 1:53 PM CDT [facility] CHOL/HDL RATIO 2.0 0.0 - 4.4 07/11/2020 1:53 PM CDT [facility] NON-HDL CHOLESTEROL 107.3 <130 mg/dL 07/11/2020 1:53 PM CDT [facility] Blood Venipuncture / Unknown 07/11/2020 9:55 AM CDT 07/11/2020 9:55 AM CDT us Ronit Parish MD CHEMISTRY ORDERABLES Final R esult Performing Organization Address City/[facility]/ZIP Co de Phone Number [facility] [address] [place] [address] * CMP (COMPREHENSIVE METABOLIC PANEL) (07/11/2020 9:55 AM CDT) SODIUM 139 136 - 144 mmol/L 07/11/2020 1:53 PM CDT [facility] POTASSIUM 4.0 3.5 - 5.1 mmol/L 07/11/2020 1:53 PM CDT [facility] CHLORIDE 101 100 - 110 mmol/L 07/11/2020 1:53 PM CDT [facility] CO2, VENOUS 26 22 - 32 mmol/L 07/11/2020 1:53 PM CDT [facility] ANION GAP 16.0 8.0 - 20.0 mmol/L 07/11/2020 1:53 PM CDT [facility] GLUCOSE 90 70 - 99 mg/dL 07/11/2020 1:53 PM CDT [facility] BUN 12 6 - 20 mg/dL 07/11/2020 1:53 PM CDT [facility] CREATININE, BLOOD 0.63 0.60 - 1.10 mg/dL 07/11/2020 1:53 PM CDT [facility] BUN/CREATININE RATIO 19 12 - 20 ratio 07/11/2020 1:53 PM CDT [facility] TOTAL PROTEIN 7.1 6.0 - 8.3 g/dL 07/11/2020 1:53 PM CDT [facility] ALBUMIN 4.3 3.5 - 5.2 g/dL 07/11/2020 1:53 PM CDT [facility] Comment: The colormetric methods used for the determination of Albumin may lead to falsely elevated test results in patients suffering from renal failure or insufficiency due to interference with other proteins. A/G RATIO 1.5 1.0 - 2.0 07/11/2020 1:53 PM CDT [facility] CALCIUM 9.7 8.9 - 10.3 mg/dL 07/11/2020 1:53 PM CDT [facility] T BILI 0.6 <=1.2 mg/dL 07/11/2020 1:53 PM CDT [facility] SGOT (AST) 21 <=32 U/L 07/11/2020 1:53 PM CDT [facility] SGPT (ALT) 16 <=41 U/L 07/11/2020 1:53 PM CDT [facility] ALKALINE PHOSPHATASE 81 35 - 105 U/L 07/11/2020 1:53 PM CDT [facility] GFR, EST. NONAFRICAN >60 >=60 07/11/2020 1:53 PM CDT [facility] GFR, EST. >60 >=60 021 1:53 PM CDT [facility] Comment: Creatinine Clearance is the preferred criteria for selecting drug dose adjustments in renally impaired patients. ??The GFR is provided as additional pertinent clinical information. GFR is reported in mL/min/1.73 sq m. Blood Venipuncture / Unknown 07/11/2020 9:55 AM CDT 07/11/2020 9:55 AM CDT us Ronit Parish MD CHEMISTRY ORDERABLES Final R esult [facility] [address] [place] [address] documented in this encounter Visit Diagnoses Diagnosis Essential hypertension- Primary Unspecified essential hypertension Obesity (BMI 30.0-34.9) Obesity, unspecified Gastroesophageal reflux disease, unspecified whether esophagitis present documented in this encounter Additional Health Concerns Assessment Noted Time PHQ-9 Depression Total Score: 0 04/01/19 20 9:00 AM OVEN OPERATOR documented as of this encounter Care Teams 7Th Grade Social Studies Teacher Relationship Specialty Start Date End Date Ronit Parish MD [address] [address] PCP - General Family Medicine 03/01/15 04/15/22 Laurence Luque MD [address] [address] Consulting Physician General Surgery 02/01/15 Clemencia Bennett MD [address] [place] [address] Family Medicine 01/30/18 documented as of this encounter
--- OUTSIDE RECORDS SUMMARY | 2024-03-15 01:51 | XMS_ITS | Encounter Summary ---
Author Organization [facility] Address [address] [place] [address] Phone Care Team Providers Care Slot Machine Key Person Name Role Phone Laurence Luque MD Unavailable + [phone] Sandra Parish MD Primary Care Provider + [phone] Clemencia Bennett MD Unavailable [phone] Reason for Visit * Reason Comments Cough Eye Drainage left Generalized Body Aches Sore Throat Encounter Details Date Type Department Care Team (Latest Contact Info) Description 04/09/2019 11:45 AM LINE CONSTRUCTION SUPERINTENDENT Office [facility] [address] [place] [address] Sandra Parish MD [address] [place] [address] Acute URI (Primary Dx); Allergic conjunctivitis of left eye Discharge Disposition: Discharged to home or Selfcare [...] Sign Reading Time Taken Comments Blood Pressure 128/70 04/09/2019 11:30 AM LINE CONSTRUCTION SUPERINTENDENT Pulse 75 04/09/2019 11:30 AM LINE CONSTRUCTION SUPERINTENDENT Temperature 37.1 ??C (98.7 ??F) 04/09/2019 11:[address] Respiratory Rate 20 04/09/2019 11:30 AM LINE CONSTRUCTION SUPERINTENDENT Oxygen Saturation 98% 04/09/2019 11:30 AM LINE CONSTRUCTION SUPERINTENDENT Inhaled Oxygen Concentration - - Weight 75.8 kg (167 lb) 04/09/2019 11:30 AM LINE CONSTRUCTION SUPERINTENDENT Height 152.4 cm (5') 04/09/2019 11:30 AM LINE CONSTRUCTION SUPERINTENDENT Body Mass Index 32.61 04/09/2019 11:30 AM LINE CONSTRUCTION SUPERINTENDENT documented in this encounter Progress Notes * Em Villalpando - 04/09/2019 11:45 AM CST Angie Reed, 48 y.o., female is here for Cough; Fever; Generalized Body Aches; and Sore Throat Medication Refills: Patient reports/denies need for medication refills. Orders Pended: no Requested Prescriptions No prescriptions requested or ordered in this encounter Home Medications Medication Sig Start Date End Date Taking? Authorizing Provider fexofenadine (FELIPE) 180 MG Tablet Take 1 Tab by mouth daily as needed. Patient not taking: Reported on 04/09/2019 01/30/18 Sandra Parish MD fluticasone (FLONASE) 50 MCG/ACT Suspension 2 Sprays by Nasal route daily as needed. Use in each nostril as directed. Patient not taking: Reported on 04/09/2019 01/30/18 Sandra Parish MD metoprolol tartrate (LOPRESSOR) 25 MG Tablet TAKE 1 TABLET BY MOUTH TWICE DAILY 02/15/19 Yes Sandra Parish MD Multiple Vitamin (MULTI-VITAMIN PO) Take 1 Tab by mouth daily. Provider, MD Ernesto omeprazole (PRILOSEC) 20 MG CAPSULE DELAYED RELEASE Take 1 Cap by mouth daily as needed for Other. Patient not taking: Reported on 04/09/2019 01/30/18 Sandra Parish MD There are no [...] BPA's have been addressed with the patient today:pap CONSTRUCTION SUPERINTENDENT * Sandra Parish MD - 04/09/2019 11:45 AM CST Subjective Chief Complaint Patient presents with ??? Cough ??? Eye Drainage left ??? Generalized Body Aches ??? Sore Throat History of Present Illness Angie presents here for an acute visit. She complains of having cough, congestion, phlegm production, fever, sore throat, sinus drainage, and congestion for the past 4 days. Apparently, it started with fever and body aches and then developed the URI symptoms. She also complains of having reddish dis coloration with irritation and drainage in her left eye. Today, her temperature is in normal range at 98.7 degrees Fahrenheit. She has been having some chills today. IJN: [id number] ROS: CARDIAC: Patient denies chest pressure, palpitations, diaphoresis, chest pain radiating into arms or neck. GI: Patient denies diarrhea, constipation, nausea, vomiting or bright red blood per rectum. PMH/PSH/FH/SH/medications/allergies/health maintenance entries were reviewed with patient and updated. Objective: Physical Exam Vitals: 04/09/19 1130 BP: 128/70 BP Location: Right Arm BP Position: Sitting BP Cuff Size: Regular Pulse: 75 Resp: 20 Temp: 98.7 ??F (37.1 ??C) TempSrc: Oral SpO2: 98% Weight: 167 lb (75.8 kg) Height: 5' (1.524 m) Body mass index is 32.61 kg/m??. Constitutional: She appears well-developed and well-nourished. No distress. Head; normocephalic, atraumatic. JUSTIN. ENT- bilateral TM fluid noted, neck without nodes, throat normal without erythema or exudate, sinuses nontender, post nasal drip noted and nasal mucosa pale and congested. Cardiovascular: Normal rate, regular rhythm, normal heart sounds and intact distal pulses. No murmur/rubs/gallops heard. Pulmonary/Chest: clear to auscultation bilaterally, no wheezes, rales or rhonchi, symmetric air entry Rapid Strep test : Results for orders placed or performed in visit on 04/09/19 POCT INFLUENZA A & B Result Value Ref Range POC INFLU A Presumptive negative Group A POC INFLU B Presumptive negative Group B POC INFLUENZA CONTROL [employer] Assessment and Plan Angie Reed presents here for Cough; Eye Drainage (left); Generalized Body Aches; and Sore Throat 1. Acute URI - POCT INFLUENZA A & B - negative - POCT GROUP A STREP SCREEN RAPID; - negative - loratadine (CLARITIN) 10 MG q.d. - fluticasone (FLONASE) 50 MCG/ACT Suspension; 2 Sprays by Nasal route daily. - Dextromethorphan-guaiFENesin (MUCINEX DM) 30-600 MG TABLET b.i.d. p.r.n. - benzonatate (TESSALON PERLES) 100 MG t.i.d. p.r.n. 2. Allergic conjunctivitis of left eye - olopatadine (PATANOL) 0.1 % Solution; Place 1 Drop in affected eye(s) 2 times p.r.n. - Drink plenty of fluids - Call office if symptoms do not resolve in 7-10 days. Followup: Keep regular scheduled appointment. The patient understood the plan, questions were answered and AVS including the updated medication list was provided to the patient. Documentation for this visit on 04/09/2019 was completed using a template. I have seen and examinedthe patient. Everything documented was personally performed at this visit with the necessary additions, deletions and changes made as appropriate. SANDRA PARISH MD CONSTRUCTION SUPERINTENDENT CONSTRUCTION SUPERINTENDENT documented in this encounter Plan of Treatment Upcoming Encounters Date Type Department Care Team (Late st Contact Info) Description 03/23/2024 1:00 PM LINE CONSTRUCTION SUPERINTENDENT Appointment [facility] [address] [place] [address] Jose R Pearson MD [address] [place] [address] Discharge Disposition: Discharged to home or Selfcare 03/23/2024 2:30 PM LINE CONSTRUCTION SUPERINTENDENT Appointment [facility] [address] [place] [address] Jose R Pearson MD [address] [place] [address] Discharge Disposition: Discharged to home or Selfcare 03/30/2024 10:00 AM LINE CONSTRUCTION SUPERINTENDENT Office Visit [facility] Oncology Services [address] [place] [address] Jose R Pearson MD [address] [place] [address] Discharge Disposition: Discharged to home or Selfcare 03/30/2024 10:30 AM LINE CONSTRUCTION SUPERINTENDENT Lab [facility] [address] [place] [address] Discharge Disposition: Discharged to home or Selfcare 03/31/2024 1:00 PM LINE CONSTRUCTION SUPERINTENDENT Clinical Support [facility] [address] [place] [address] Jose R Pearson MD [address] [place] [address] Discharge Disposition: Discharged to home or Selfcare 04/28/2024 1:30 PM LINE CONSTRUCTION SUPERINTENDENT Clinical Support [facility] [address] [place] [address] Discharge Disposition: Discharged to home or Selfcare documented as of this encounter Procedures Procedure Name Priority Date/Time Associated Diagnosis Comments POCT INFLUENZA A & B Routine 04/09/2019 11:58 AM LINE CONSTRUCTION SUPERINTENDENT Acute URI documented in this encounter Results * POCT GROUP A STREP SCREEN RAPID (04/09/2019 12:01 PM LINE CONSTRUCTION SUPERINTENDENT) POC STREP SCRN Presumptive negative POC STREP SCREEN CONTROL [employer] 04/09/2019 12:0 1 PM LINE CONSTRUCTION SUPERINTENDENT Sandra Parish MD POINT OF CARE TESTING (MANUA L) Final Result * POCT INFLUENZA A & B (04/09/2019 11:58 AM LINE CONSTRUCTION SUPERINTENDENT) POC INFLU A Presumptive negative Group A POC INFLU B Presumptive negative Group B POC INFLUENZA CONTROL [employer] 04/09/2019 11:5 8 AM LINE CONSTRUCTION SUPERINTENDENT Sandra Parish MD POINT OF CARE TESTING (MANUA L) Final Result documented in this encounter Visit Diagnoses Diagnosis Acute URI- Primary Acute upper respiratory infections of unspecified site Allergic conjunctivitis of left eye Other chronic allergic conjunctivitis documented in this encounter Additional Health Concerns Assessment Noted Time PHQ-9 Depression Total Score: 0 04/01/19 20 9:00 AM LINE CONSTRUCTION SUPERINTENDENT documented as of this encounter Care Teams Slot Machine Key Person Relationship Specialty Start Date End Date Sandra Parish MD #[address] [address] PCP - General Family Medicine 03/01/15 04/15/22 Laurence Luque MD #[address] [address] Consulting Physician General Surgery 02/01/15 Clemencia Bennett MD [address] [place] [address] Family Medicine 01/30/18 documented as of this encounter
--- OUTSIDE RECORDS SUMMARY | 2024-03-15 01:51 | XMS_ITS | Encounter Summary ---
Author Organization [facility] [employer] [facility] Care Team Providers Care Cashier Office Name Role Phone Laurence Luque MD Unavailable + [phone] Ronit Parish MD Primary Care Provider + [phone] Clemencia Bennett MD Unavailable [phone] Encounter Details Date Type Department Care Team (Latest Contact Info) Description 08/11/2020 Travel Social History Tobacco Use Types Packs/Day [...] have Coronavirus / COVID-19? No / Unsure 08/11/2020 8:21 AM CDT documented as of this encounter Plan of Treatment Upcoming Encounters Date Type Department Care Team (Late st Contact Info) Description 03/23/2024 1:00 PM ICE RINK ATTENDANT Appointment [facility] Cardiology Services [address] [place] [address] Jose R Pearson MD [address] [place] [address] Discharge Disposition: Discharged to home or Selfcare 03/23/2024 2:30 PM ICE RINK ATTENDANT [facility] [address] [place] [address] Jose R Pearson MD [address] [place] [address] Discharge Disposition: Discharged to home or Selfcare 03/30/2024 10:00 AM ICE RINK ATTENDANT Office Visit [facility] Oncology Services [address] [place] [address] Jose R Pearson MD [address] [place] [address] Discharge Disposition: Discharged to home or Selfcare 03/30/2024 10:30 AM ICE RINK ATTENDANT Lab [facility] Oncology Services [address] [place] [address] Discharge Disposition: Discharged to home or Selfcare 03/31/2024 1:00 PM ICE RINK ATTENDANT Clinical Support [facility] Oncology Services [address] [place] [address] Jose R Pearson MD [address] [place] [address] Discharge Disposition: Discharged to home or Selfcare 04/28/2024 1:30 PM ICE RINK ATTENDANT Clinical Support [facility] Oncology Services [address] [place] [phone] Discharge Disposition: Discharged to home or Selfcare documented as of this encounter Visit Diagnoses Not on filedocumented in this encounter Additional Health Concerns Assessment Noted Time PHQ-9 Depression Total Score: 0 04/01/19 9:00 AM ICE RINK ATTENDANT documented as of this encounter Care Teams Cashier Office Relationship Specialty Start Date End Date Ronit Parish MD #[address] [address] PCP - General Family Medicine 03/01/15 04/15/22 Laurence Luque MD #[address] [phone] Consulting Physician General Surgery 02/01/15 Clemencia Bennett MD [address] [place] [address] Family Medicine 01/30/18 documented as of this encounter
--- OUTSIDE RECORDS SUMMARY | 2024-03-15 01:51 | XMS_ITS | Encounter Summary ---
Author Organization [facility] [employer] [facility] Care Team Providers Care Mixer Pigment Name Role Phone Laurence Luque MD Unavailable + [phone] Ronit Parish MD Primary Care Provider + [phone] Clemencia Bennett MD Unavailable [phone] Encounter Details Date Type Department Care Team (Latest Contact Info) Description 05/02/2020 Travel Social History Tobacco Use Types Packs/Day [...] have Coronavirus / COVID-19? No / Unsure 05/02/2020 8:24 AM RAILROAD CRANE OPERATOR documented as of this encounter Plan of Treatment Upcoming Encounters Date Type Department Care Team (Late st Contact Info) Description 03/23/2024 1:00 PM RAILROAD CRANE OPERATOR Appointment [facility] Cardiology Services [address] [place] [address] Jose R Pearson MD [address] [place] [address] Discharge Disposition: Discharged to home or Selfcare 03/23/2024 2:30 PM RAILROAD CRANE OPERATOR Appointment [facility] [address] [facility] [place] [address] Jose R Pearson MD [address] [place] [address] Discharge Disposition: Discharged to home or Selfcare 03/30/2024 10:00 AM RAILROAD CRANE OPERATOR Office Visit [facility] Oncology Services [address] [place] [address] Jose R Pearson MD [address] [place] [address] Discharge Disposition: Discharged to home or Selfcare 03/30/2024 10:30 AM RAILROAD CRANE OPERATOR [facility] [address] [place] [address] Discharge Disposition: Discharged to home or Selfcare 03/31/2024 1:00 PM RAILROAD CRANE OPERATOR Clinical Support [facility] Oncology Services [address] [place] [address] Jose R Pearson MD [address] [place] [address] Discharge Disposition: Discharged to home or Selfcare 04/28/2024 1:30 PM RAILROAD CRANE OPERATOR Clinical Support [facility] Oncology Services [address] [place] [address] Discharge Disposition: Discharged to home or Selfcare documented as of this encounter Visit Diagnoses Not on filedocumented in this encounter Additional Health Concerns Assessment Noted Time PHQ-9 Depression Total Score: 0 04/01/19 9:00 AM RAILROAD CRANE OPERATOR documented as of this encounter Care Teams Mixer Pigment Relationship Specialty Start Date End Date Ronit Parish MD #[address] [address] PCP - General Family Medicine 03/01/15 04/15/22 Laurence Luque MD #[address] [phone] Consulting Physician General Surgery 02/01/15 Clemencia Bennett MD [address] [place], [place] [phone] Family Medicine 01/30/18 documented as of this encounter
--- OUTSIDE RECORDS SUMMARY | 2024-03-15 01:51 | XMS_ITS | Encounter Summary ---
Author Organization [facility] Address [address] [place] [address] Phone Care Team Providers Care Channel Cementer Outsole Machine Name Role Phone Laurence Luque MD Unavailable + [phone] Ronit Parish MD Primary Care Provider + [phone] Clemencia Benentt MD Unavailable [phone] Reason for Visit * Reason Comments Cough Fever 102.4 temp today Sore Throat Ear Pain Encounter Details Date Type Department Care Team (Late st Contact Info) Description 05/30/2021 11:15 AM CDT Office Visit [facility] - Primary Care - [place] [address] [place] [phone] Lauren Barber, SKIDDER OPERATOR, LOSS PREVENTION/SAFETY DISTRICT MANAGER [address] [place], [place] [phone] Fever of unknown origin (Primary Dx); Cough; Sore throat Discharge Disposition: Discharged to home or Selfcare [...] Sign Reading Time Taken Comments Blood Pressure 136/80 05/30/2021 11:11 AM CDT Pulse 62 05/30/2021 11:11 AM CDT Temperature 36.9 ??C (98.4 ??F) 05/30/2021 11:11 AM C DT Respiratory Rate 20 05/30/2021 11:11 AM CDT Oxygen Saturation 97% 05/30/2021 11:11 AM CDT Inhaled Oxygen Concentration - - Weight 68 kg (150 lb) 05/30/2021 11:11 AM CDT Height 154.9 cm (5' 1 ) 05/30/2021 11:11 AM CDT Body Mass Index 28.34 05/30/2021 11:11 AM CDT documented in this encounter Patient Instructions * Patient Instructions* Lauren Barber APRN, CNP - 05/30/2021 11:15 AM CDT If any new or worsening symptoms occur, please call office. documented in this encounter Progress Notes * Claudine Long CMA - 05/30/2021 11:15 AM CDT Angie Reed, 51 y.o., female is here for Cough, Fever (102.4 temp today ), Sore Throat, and Ear Pain Medication Refills: Patient reports/denies need for medication refills. Orders Pended: no Requested Prescriptions No prescriptions requested or ordered in this encounter Home Medications Medication Sig Start Date End Date Taking? Authorizing Provider metoprolol tartrate (LOPRESSOR) 25 MG Tablet Take 1 Tablet by mouth 2 times daily. 5/28/21 Yes Ronit Parish MD Multiple Vitamin (MULTI-VITAMIN PO) Take 1 Tab by mouth daily. Yes Provider, MD Ernesto Medications Discontinued During This Encounter Medication Reason ??? Phentermine HCl 37.5 MG Tablet Med List Clean Up I have reviewed the home medication list [...] of 2) Never done ??? SARS-COV-2 Immunization (4 - Booster for Pfizer series) 05/14/2021 Orders Pended: no The following BPA's have been addressed with the patient today: N/A * Lauren Barber APRN, CNP - 05/30/2021 11:15 AM CDT [facility] - FAMILY [facility] [address] [address] Dept: [phone] Dept Loc: [phone] Loc Patient: Angie Reed : 1970 Sex: female Subjective: HPI: Angie Reed presents for cough and fever. Symptoms began 05/27/21 patient has taken 2 covid test. Both negative. Reports dry cough, sore throat, ear pain, fatigue, body aches, fever since friday - tmax 102.4 today, tylenol reduced temp. denies chest congestion, SOB, chest pain, wheezing. She's afebrile at this time. States that her grandchildren were on amoxicillin for a virus . A few weeks ago. ROS Fourteen point review of systems negative except as documented in HPI. Objective: Vitals: 05/30/21 1111 BP: 136/80 BP Location: Right Arm BP Position: Sitting BP Cuff Size: Regular Pulse: 62 Resp: 20 Temp: 98.4 ??F (36.9 ??C) TempSrc: Temporal SpO2: 97% Weight: 150 lb (68 kg) Height: 5' 1 (1.549 m) LMP 02/21/2020 (Approximate) Physical Exam Vitals and nursing note reviewed. Constitutional: General: She is not in acute distress. Appearance: She is well-developed. HENT: Head: Normocephalic and atraumatic. Right Ear: Ear canal and external ear normal. Tympanic membrane is bulging. Tympanic membrane is not erythematous. Left Ear: Ear canal and external ear normal. Tympanic membrane is bulging. Tympanic membrane is noterythematous. Mouth/Throat: Mouth: Mucous membranes are moist. Pharynx: Oropharynx is clear. Eyes: Conjunctiva/sclera: Conjunctivae normal. Cardiovascular: Rate and Rhythm: Normal rate and regular rhythm. Heart sounds: Normal heart sounds. Pulmonary: Effort: Pulmonary effort is normal. No respiratory distress. Breath sounds: Normal breath sounds. Lymphadenopathy: Cervical: No cervical adenopathy. Skin: General: Skin is warm and dry. Neurological: Mental Status: She is alert and oriented to person, place, and time. Psychiatric: Behavior: Behavior normal. Thought Content: Thought content normal. Judgment: Judgment normal. Flu and strep rapids negative today. Medical Decision Making: Assessment & Plan Diagnoses and all orders for this visit: Fever of unknown origin - COMPLETE BLOOD COUNT (CBC) WITH DIFF; Future - CMP (COMPREHENSIVE METABOLIC PANEL); Future Cough - POCT INFLUENZA A & B Sore throat - POCT GROUP A STREP SCREEN RAPID exam overall benign, will have labs today, if WBC shift indicating bacterial will start abx, if not, then continue to monitor symptoms. Follow-up Information Return if symptoms worsen or fail to improve. documented in this encounter Plan of Treatment Upcoming Encounters Date Type Department Care Team (Late st Contact Info) Description 03/23/2024 1:00 PM COATING MACHINE OPERATOR HELPER Appointment [facility] Cardiology Services [address] [facility] [place] [address] Jose R Pearson MD [address] [place] [address] Discharge Disposition: Discharged to home or Selfcare 03/23/2024 2:30 PM COATING MACHINE OPERATOR HELPER Appointment [facility] [address] [place] [address] Jose R Pearson MD [address] [place] [address] Discharge Disposition: Discharged to home or Selfcare 03/30/2024 10:00 AM COATING MACHINE OPERATOR HELPER Office Visit [facility] Oncology Services [address] [place] [address] Jose R Pearson MD [address] [place] [address] Discharge Disposition: Discharged to home or Selfcare 03/30/2024 10:30 AM COATING MACHINE OPERATOR HELPER Lab [facility] Oncology Services [address] [place] [address] Discharge Disposition: Discharged to home or Selfcare 03/31/2024 1:00 PM COATING MACHINE OPERATOR HELPER Clinical Support [facility] Oncology Services [address] [place] [address] Jose R Pearson MD [address] [place] [address] Discharge Disposition: Discharged to home or Selfcare 04/28/2024 1:30 PM COATING MACHINE OPERATOR HELPER Clinical Support [facility] Oncology Services [address] [place] [address] Discharge Disposition: Discharged to home or Selfcare documented as of this encounter Procedures Procedure Name Priority Date/Time Associated Diagnosis Comments POCT GROUP A STREP SCREEN RAPID Routine 05/30/2021 11:30 AM CDT Sore throat POCT INFLUENZA A & B Routine 05/30/2021 11:20 AM CDT Cough documented in this encounter Results * (ABNORMAL) CMP (COMPREHENSIVE METABOLIC PANEL) (05/30/2021 11:43 AM CDT) Pathologist [facility] SODIUM 140 136 - 144 mmol/L 05/30/2021 3:35 PM CDT [facility] POTASSIUM 4.0 3.5 - 5.1 mmol/L 05/30/2021 3:35 PM CDT [facility] CHLORIDE 102 100 - 110 mmol/L 05/30/2021 3:35 PM CDT [facility] CO2, VENOUS 26 22 - 32 mmol/L 05/30/2021 3:35 PM CDT [facility] ANION GAP 16.0 8.0 - 20.0 mmol/L 05/30/2021 3:35 PM CDT [facility] GLUCOSE 92 70 - 99 mg/dL 05/30/2021 3:35 PM CDT [facility] BUN 8 6 - 20 mg/dL 05/30/2021 3:35 PM CDT [facility] CREATININE, BLOOD 0.77 0.60 - 1.10 mg/dL 05/30/2021 3:35 PM CDT [facility] BUN/CREATININE RATIO 10(L) 12 - 20 ratio 05/30/2021 3:35 PM CDT [facility] TOTAL PROTEIN 7.6 6.0 - 8.3 g/dL 05/30/2021 3:35 PM CDT [facility] ALBUMIN 4.5 3.5 - 5.2 g/dL 05/30/2021 3:35 PM CDT [facility] Comment: The colormetric methods used for the determination of Albumin may lead to falsely elevated test results in patients suffering from renal failure or insufficiency due to interference with other proteins. A/G RATIO 1.5 1.0 - 2.0 05/30/2021 3:35 PM CDT [facility] CALCIUM 9.3 8.9 - 10.3 mg/dL 05/30/2021 3:35 PM CDT [facility] T BILI 0.3 <=1.2 mg/dL 05/30/2021 3:35 PM CDT [facility] SGOT (AST) 29 <=32 U/L 05/30/2021 3:35 PM CDT [facility] SGPT (ALT) 23 <=41 U/L 05/30/2021 3:35 PM CDT [facility] ALKALINE PHOSPHATASE 86 35 - 105 U/L 05/30/2021 3:35 PM CDT [facility] GFR, EST. NONAFRICAN >60 >=60 05/30/2021 3:35 PM CDT [facility] GFR, EST. >60 >=60 022 3:35 PM CDT [facility] Comment: Creatinine Clearance is the preferred criteria for selecting drug dose adjustments in renally impaired patients. ??The GFR is provided as additional pertinent clinical information. GFR is reported in mL/min/1.73 sq m. IS THE PATIENT REQUIRED TO BE FASTING? No 05/30/2021 3:35 PM CDT [facility] Blood Venipuncture / Unknown 05/30/2021 11:43 AM CDT 05/30/2021 11:43 AM CDT us Lauren Barber SKIDDER OPERATOR, LOSS PREVENTION/SAFETY DISTRICT MANAGER CHEMISTRY ORDER JASON Final Result [facility] [address] [place] [address] * POCT GROUP A STREP SCREEN RAPID (05/30/2021 11:30 AM CDT) POC STREP SCRN Presumptive negative POC STREP SCREEN CONTROL Rock Crushing Machine Operator Pass 05/30/2021 11:3 0 AM CDT Lauren Barber APRN, CNP POINT OF CARE T ESTING (MANUAL) Final Result * POCT INFLUENZA A & B (05/30/2021 11:20 AM CDT) POC INFLU A Presumptive negative Group A POC INFLU B Presumptive negative Group B POC INFLUENZA CONTROL Rock Crushing Machine Operator Pass 05/30/2021 11:2 0 AM CDT Lauren Barber APRN, CNP POINT OF CARE T ESTING (MANUAL) Final Result documented in this encounter Visit Diagnoses Diagnosis Fever of unknown origin- Primary Fever, unspecified Cough Sore throat Acute pharyngitis documented in this encounter Additional Health Concerns Assessment Noted Time PHQ-9 Depression Total Score: 0 04/01/19 20 9:00 AM COATING MACHINE OPERATOR HELPER documented as of this encounter Care Teams Channel Cementer Outsole Machine Relationship Specialty Start Date End Date Ronit Parish MD #[address] [phone] PCP - General Family Medicine 03/01/15 04/15/22 Laurence Luque MD #[address] [address] Consulting Physician General Surgery 02/01/15 Clemencia Bennett MD [address] [place], [place] [phone] Family Medicine 01/30/18 documented as of this encounter
--- OUTSIDE RECORDS SUMMARY | 2024-03-15 01:51 | XMS_ITS | Encounter Summary ---
Author Organization [facility] [employer] [facility] Care Team Providers Care Chief Nurse Anesthetist Name Role Phone Laurence Luque MD Unavailable + [phone] Ronit Parish MD Primary Care Provider + [phone] Clemencia Bennett MD Unavailable [phone] Encounter Details Date Type Department Care Team (Latest Contact Info) Description 12/14/2020 Travel Social History Tobacco Use Types Packs/Day [...] st Contact Info) Description 03/23/2024 1:00 PM OEM SALES MANAGER Appointment [facility] Cardiology Services [address] [place] [address] Jose R Pearson MD [address] [place] [address] Discharge Disposition: Discharged to home or Selfcare 03/23/2024 2:30 PM OEM SALES MANAGER [facility] [address] [place] [address] Jose R Pearson MD [address] [place] [address] Discharge Disposition: Discharged to home or Selfcare 03/30/2024 10:00 AM OEM SALES MANAGER Office Visit [facility] Oncology Services [address] [place] [address] Jose R Pearson MD [address] [place] [address] Discharge Disposition: Discharged to home or Selfcare 03/30/2024 10:30 AM OEM SALES MANAGER Lab [facility] Oncology Services [address] [place] [address] Discharge Disposition: Discharged to home or Selfcare 03/31/2024 1:00 PM OEM SALES MANAGER Clinical Support [facility] Oncology Services [address] [place] [address] Jose R Pearson MD [address] [place] [address] Discharge Disposition: Discharged to home or Selfcare 04/28/2024 1:30 PM OEM SALES MANAGER Clinical Support [facility] Oncology Services [address] [place] [phone] Discharge Disposition: Discharged to home or Selfcare documented as of this encounter Visit Diagnoses Not on filedocumented in this encounter Additional Health Concerns Assessment Noted Time PHQ-9 Depression Total Score: 0 04/01/19 9:00 AM OEM SALES MANAGER documented as of this encounter Care Teams Chief Nurse Anesthetist Relationship Specialty Start Date End Date Ronit Parish MD #[address] [address] PCP - General Family Medicine 03/01/15 04/15/22 Laurence Luque MD #[address] [phone] Consulting Physician General Surgery 02/01/15 Clemencia Bennett MD [address] [place] [address] Family Medicine 01/30/18 documented as of this encounter
--- OUTSIDE RECORDS SUMMARY | 2024-03-15 01:51 | XMS_ITS | Encounter Summary ---
Author Organization [facility] Address [address] [place] [address] Phone Care Team Providers Care Burial Vault Deliverer And Installer Name Role Phone Laurence Luque MD Unavailable + [phone] Ronit Parish MD Primary Care Provider + [phone] Clemencia Bennett MD Unavailable [phone] Reason for Visit * Reason Comments Hypertension Encounter Details Date Type Department Care Team (Late st Contact Info) Description 08/11/2020 8:30 AM CDT Office Visit [facility] - Primary Care - [place] [address] [place] [address] Ronit Parish MD [address] [place] [address] Physical exam, annual (Adult) (Primary [...] Sign Reading Time Taken Comments Blood Pressure 126/82 08/11/2020 8:22 AM CDT Pulse 50 08/11/2020 8:22 AM CDT Temperature 36.4 ??C (97.6 ??F) 08/11/2020 8:22 AM CD T Respiratory Rate 20 08/11/2020 8:22 AM CDT Oxygen Saturation 99% 08/11/2020 8:22 AM CDT Inhaled Oxygen Concentration - - Weight 73 kg (161 lb) 08/11/2020 8:22 AM CDT Height 154.9 cm (5' 1 ) 08/11/2020 8:22 AM CDT Body Mass Index 30.42 08/11/2020 8:22 AM CDT documented in this encounter Progress Notes * Jen Chaves CMA - 08/11/2020 8:30 AM CDT Shantel Davis, 50 y.o., female is here for Hypertension Medication Refills: Patient reports/denies need for medication refills. Orders Pended: yes Requested Prescriptions No prescriptions requested or ordered in this encounter Home Medications Medication Sig Start Date End Date Taking? Authorizing Provider metoprolol tartrate (LOPRESSOR) 25 MG Tablet Take 1 tablet by mouth twice daily 06/07/20 Yes Ronit Parish MD Multiple Vitamin (MULTI-VITAMIN PO) Take 1 Tab by mouth daily. Yes ProviderErnesto MD Phentermine HCl 15 MG Capsule Take 1 Cap by mouth daily. 12/31/19 Yes Ronit Parish MD There are no discontinued [...] Health Maintenance Due Topic Date Due ??? Pneumococcal Immunization (0-64 years) (1 of 4 - PCV13) Never done ??? Zoster Immunization (1 of 2) Never done ??? Pap Smear 06/16/2019 Orders Pended: n/a The following BPA's have been addressed with the patient today: n/a * Ronit Parish MD - 08/11/2020 8:30 AM CDT Subjective Chief complaint: Angie Reed is here for complete physical exam Hypertension History of Present Illness: Angie presents here for a followup and an annual physical visit. She continues to take her metoprolol 25 mg b.i.d. for her hypertension. Her blood pressure is well controlled today at 120/82 mmHg. Her heart rate is slightly low at 58 beats per minute. She denies having any lightheadedness, dizziness, or syncopal episodes. She has been taking phentermine 15 mg daily since September 2019. She initially lost some weight, about 10 pounds, and then gained some weight back. She wants the phentermine dose to be increased as she feels that it is not effective at this lower dose. Her current BMI is 30.42. I will increase her phentermine to 37.5 mg daily. I reviewed all the warning side effects. If she develops any palpitations,chest tightness, shortness of breath, anxiety, insomnia, she will call our office. LABS: Done on 07/11/2020 were reviewed with her. Thyroid functions are normal. HbA1c is normal at 5.5. Lipid panel is well controlled with LDL of 91, HDL is very good at 111.7. CMP is normal. CBC looks good. Hemoglobin is 13.9. IJN: [id number] ROS: Constitutional: denies significant weight loss or weight gain, fever or chills SKIN: Denies rash, itching, or significant moles. HEENT: denies headaches, tinnitus, vertigo, visual issues, teeth or throat problems. RESPIRATORY: denies shortness of breath, chronic cough or other respiratory problems. CARDIAC: denies palpitations, diaphoresis, chest pain radiating into arms or neck. GI: denies diarrhea, constipation, heartburn, nausea, vomiting, hematemesis, hemorrhoids : Denies incontinence, urgency, frequency, nocturia, hesitancy, dribbling. MUSCULOSKELETAL: Denies Joint pain or claudications NEURO: Denies syncope, seizures, weakness, paralysis, tremors, memory problems. PSYCH: Denies depression, anxiety PMH/PSH/FH/SH/medications/allergies/health maintenance entries were reviewed with patient and updated. Objective: Physical Exam Vitals: 08/11/20 0822 BP: 126/82 Pulse: 50 Resp: 20 Temp: 97.6 ??F (36.4 ??C) SpO2: 99% Weight: 161 lb (73 kg) Height: 5' 1 (1.549 m) Body mass index is 30.42 kg/m??. Constitutional: She appears well-developed and well-nourished. No distress. HENT: Head: Atraumatic, normocephalic. Nose: Nose normal. Mouth/Throat: Oropharynx is clear and moist. Eyes: PERRLA, EOMI, Conjunctivae are normal, no discharge, No scleral icterus. Neck: No tracheal deviation present. No thyromegaly. Cardiovascular: Normal rate, regular rhythm, normal heart [...] and Plan Angie Reed who is a 50 y.o. y.o. female presents here for complete physical exam 1. Annual Physical/Preventetive Medicine Visit: Immunization History Administered Date(s) Administered ??? DTAP VACCINE 07/15/2012 ??? Influenza Vaccine greater than 3 yrs 12/15/2013, 12/16/2016 ??? Influenza Vaccine, Quadrivalent, PF 11/29/2014, 01/13/2018, 03/04/2019, 12/11/2019 ??? PUR FLU 3+ YRS PRES FREE QUAD IM 12/08/2015 Recent Procedure Details HM PAP SMEAR Resulted: 06/04/2013 (Final result) 2. Essential hypertension - continue metoprolol tartrate (LOPRESSOR) 25 MG b.i.d. 3. Obesity (BMI 30.0-34.9) - increase Phentermine HCl 37.5 MG q.d.. Currently taking 15 mg q.d. - has lost 7 lb since starting phentermine 15 mg q.d. in September 2019. Anticipatory guidance on nutrition, healthy diet, exercise given. Followup: Return in about 3 months (around 11/11/2020) for recheck weight.with labs done 1 week prior to next appointment. The patient understood the plan, questions were answered and AVS including the updated medication list was provided to the patient. Documentation for this visit on 08/11/20 was completed using a template. I have seen and examined the patient. Everything documented was personally performed at this visit with the necessary additions, deletions and changes made as appropriate. This note was dictated using [email or web address] fluency dictation system and there may be errors in medical record clerk. Despite proof reading the note, there may be mistakes and I apologize for those. Ronit Parish MD documented in this encounter Plan of Treatment Upcoming Encounters Date Type Department Care Team (Late st Contact Info) Description 03/23/2024 1:00 PM LABORER BRUSH CLEARING Appointment [facility] Cardiology Services [address] [place] [address] Jose R Pearson MD [address] [place] [address] Discharge Disposition: Discharged to home or Selfcare 03/23/2024 2:30 PM LABORER BRUSH CLEARING Appointment [facility] [address] [place] [address] Jose R Pearson MD [address] [place] [address] Discharge Disposition: Discharged to home or Selfcare 03/30/2024 10:00 AM LABORER BRUSH CLEARING Office Visit [facility] Oncology Services [address] [place] [address] Jose R Pearson MD [address] [place] [address] Discharge Disposition: Discharged to home or Selfcare 03/30/2024 10:30 AM LABORER BRUSH CLEARING Lab [facility] Oncology Services [address] [place] [phone] Discharge Disposition: Discharged to home or Selfcare 03/31/2024 1:00 PM LABORER BRUSH CLEARING Clinical Support [facility] Oncology Services [address] [place] [address] Jose R Pearson MD [address] [place] [address] Discharge Disposition: Discharged to home or Selfcare 04/28/2024 1:30 PM LABORER BRUSH CLEARING Clinical Support [facility] Oncology Services [address] [place] [address] Discharge Disposition: Discharged to home or Selfcare documented as of this encounter Visit Diagnoses Diagnosis Physical exam, annual (Adult)- Primary Routine general medical examination at a health care facility Essential hypertension Unspecified essential hypertension Obesity (BMI 30.0-34.9) Obesity, unspecified documented in this encounter Additional Health Concerns Assessment Noted Time PHQ-9 Depression Total Score: 0 04/01/19 20 9:00 AM LABORER BRUSH CLEARING documented as of this encounter Care Teams Burial Vault Deliverer And Installer Relationship Specialty Start Date End Date Ronit Parish MD [address] [address] PCP - General Family Medicine 03/01/15 04/15/22 Laurence Luque MD [address] [address] Consulting Physician General Surgery 02/01/15 Clemencia Bennett MD [facility] [place] [address] [place] [address] Family Medicine 01/30/18 documented as of this encounter
--- OUTSIDE RECORDS SUMMARY | 2024-03-15 01:51 | XMS_ITS | Encounter Summary ---
Author Organization [facility] Care Team Providers Care [employer] Assistant Football Coach Name Role Phone Laurence Luque MD Unavailable + [phone] Ronit Parish MD Primary Care Provider + [phone] Clemencia Bennett MD Unavailable [phone] Encounter Details Date Type Department Care Team (Latest Contact Info) Description 04/01/2019 Travel Social History Tobacco Use Types Packs/Day [...] st Contact Info) Description 03/23/2024 1:00 PM APPLIED TECHNOLOGIST [facility] [address] [place] [address] Jose R Pearson MD [address] [place] [address] Discharge Disposition: Discharged to home or Selfcare 03/23/2024 2:30 PM APPLIED TECHNOLOGIST [facility] [address] [place] [address] Jose R Pearson MD [address] [place] [address] Discharge Disposition: Discharged to home or Selfcare 03/30/2024 10:00 AM APPLIED TECHNOLOGIST Office Visit [facility] Oncology Services [address] [place] [phone] Jose R Pearson MD [address] [place] [address] Discharge Disposition: Discharged to home or Selfcare 03/30/2024 10:30 AM APPLIED TECHNOLOGIST Lab [facility] Oncology Services [address] [place] [phone] Discharge Disposition: Discharged to home or Selfcare 03/31/2024 1:00 PM APPLIED TECHNOLOGIST Clinical Support [facility] Oncology Services [address] [place] [phone] Jose R Pearson MD [address] [place] [address] Discharge Disposition: Discharged to home or Selfcare 04/28/2024 1:30 PM APPLIED TECHNOLOGIST Clinical Support [facility] Oncology Services [address] [place] [phone] Discharge Disposition: Discharged to home or Selfcare documented as of this encounter Visit Diagnoses Not on filedocumented in this encounter Additional Health Concerns Assessment Noted Time PHQ-9 Depression Total Score: 0 04/01/19 9:00 AM APPLIED TECHNOLOGIST documented as of this encounter Care Teams High School Assistant Football Coach Relationship Specialty Start Date End Date Ronit Parish MD [address] [address] PCP - General Family Medicine 03/01/15 04/15/22 Laurence Luque MD [address] [address] Consulting Physician General Surgery 02/01/15 Clemencia Bennett MD [address] [place] [address] Family Medicine 01/30/18 documented as of this encounter
--- OUTSIDE RECORDS SUMMARY | 2024-03-15 01:51 | XMS_ITS | Encounter Summary ---
Author Organization [facility] Care Team Providers Care Labor Expediter Name Role Phone Laurence Luque MD Unavailable + [phone] Ronit Parish MD Primary Care Provider + [phone] Clemencia Bennett MD Unavailable [phone] Encounter Details Date Type Department Care Team (Latest Contact Info) Description 09/30/2019 Travel Social History Tobacco Use Types Packs/Day [...] st Contact Info) Description 03/23/2024 1:00 PM CROCHET MACHINE OPERATOR Appointment [facility] Cardiology Services [address] [place] [address] Jose R Pearson MD [address] [place] [address] Discharge Disposition: Discharged to home or Selfcare 03/23/2024 2:30 PM CROCHET MACHINE OPERATOR Appointment [facility] CT [address] [facility] [place] [address] Jose R Pearson MD 0 [place] [address] Discharge Disposition: Discharged to home or Selfcare 03/30/2024 10:00 AM CROCHET MACHINE OPERATOR Office Visit [facility] Oncology Services [address] [place] [address] Jose R Pearson MD [address] [place] [address] Discharge Disposition: Discharged to home or Selfcare 03/30/2024 10:30 AM CROCHET MACHINE OPERATOR [facility] [address] [place] [address] Discharge Disposition: Discharged to home or Selfcare 03/31/2024 1:00 PM CROCHET MACHINE OPERATOR Clinical Support [facility] Oncology Services [address] [place] [address] Jose R Pearson MD [address] [place] [address] Discharge Disposition: Discharged to home or Selfcare 04/28/2024 1:30 PM CROCHET MACHINE OPERATOR Clinical Support [facility] Oncology Services [address] [place] [address] Discharge Disposition: Discharged to home or Selfcare documented as of this encounter Visit Diagnoses Not on filedocumented in this encounter Additional Health Concerns Assessment Noted Time PHQ-9 Depression Total Score: 0 04/01/19 9:00 AM CROCHET MACHINE OPERATOR documented as of this encounter Care Teams Labor Expediter Relationship Specialty Start Date End Date Ronit Parish MD #[address] [address] PCP - General Family Medicine 03/01/15 04/15/22 Laurence Luque MD [address] [phone] Consulting Physician General Surgery 02/01/15 Clemencia Bennett MD [address] [place], [place] [phone] Family Medicine 01/30/18 documented as of this encounter
--- OUTSIDE RECORDS SUMMARY | 2024-03-15 01:51 | XMS_ITS | Encounter Summary ---
Author Organization [facility] Address [address] [place] [address] Phone Care Team Providers Care Reject Opener Name Role Phone Laurence Luque MD Unavailable + [phone] Ronit Parish MD Primary Care Provider + [phone] Clemencia Bennett MD Unavailable [phone] Reason for Visit * Reason Onset Date Comments Follow-up 2019 Medication Management 2019 Encounter Details Date Type Department Care Team (Late st Contact Info) Description 2019 Telephone [facility] [address] [place] [address] Ronit Parish MD [address] [place] [address] Follow-up; Medication Management Social History Tobacco Use Types Packs/Day Years [...] Telephone Encounter - Naya Jenkins RN - 2019 3:44 PM AUTOMATIC I THREADING MACHINE FEEDER Call to patient to inform of medication called into pharmacy. Patient verbalized understanding. MATIC I THREADING MACHINE FEEDER * Telephone Encounter - Ronit Parish MD - 2019 1:50 PM CST Please inform patient, Amoxicillin and Phenergan DM syrup ordered. Discontinue Mucinex DM. MATIC I THREADING MACHINE FEEDER * Telephone Encounter - Marianela Lacey RN - 2019 9:44 AM CST Patient calling and stating that she is not any better since her OV on 04/09. States that she still has all the same symptoms and is loosing her voice due to the cough. Patient asking if provider would be willing to order antibiotic and cough syrup for her. States that Mucinex DM is not helping at all. Would provider be willing to order antibiotic and cough syrup for patient? Please advise. MATIC I THREADING MACHINE FEEDER documented in this encounter Plan of Treatment Upcoming Encounters Date Type Department Care Team (Late st Contact Info) Description 03/23/2024 1:00 PM AUTOMATIC I THREADING MACHINE FEEDER [facility] [address] [place] [address] Jose R Pearson MD [address] [place] [address] Discharge Disposition: Discharged to home or Selfcare 03/23/2024 2:30 PM AUTOMATIC I THREADING MACHINE FEEDER [facility] [address] [facility] [place] [address] Jose R Pearson MD [address] [place] [address] Discharge Disposition: Discharged to home or Selfcare 03/30/2024 10:00 AM AUTOMATIC I THREADING MACHINE FEEDER Office Visit [facility] Oncology Services [address] [place] [phone] Jose R Pearson MD [address] [place] [address] Discharge Disposition: Discharged to home or Selfcare 03/30/2024 10:30 AM AUTOMATIC I THREADING MACHINE FEEDER Lab [facility] Oncology Services [address] [place] [phone] Discharge Disposition: Discharged to home or Selfcare 03/31/2024 1:00 PM AUTOMATIC I THREADING MACHINE FEEDER Clinical Support [facility] Oncology Services [address] [place] [phone] Jose R Pearson MD [address] [place] [address] Discharge Disposition: Discharged to home or Selfcare 04/28/2024 1:30 PM AUTOMATIC I THREADING MACHINE FEEDER Clinical Support [facility] Oncology Services [address] [place] [phone] Discharge Disposition: Discharged to home or Selfcare documented as of this encounter Visit Diagnoses Not on filedocumented in this encounter Additional Health Concerns Assessment Noted Time PHQ-9 Depression Total Score: 0 04/01/19 20 9:00 AM AUTOMATIC I THREADING MACHINE FEEDER documented as of this encounter Care Teams Reject Opener Relationship Specialty Start Date End Date Ronit Parish MD #[address] [phone] PCP - General Family Medicine 03/01/15 04/15/22 Laurence Luque MD #[address] [phone] Consulting Physician General Surgery 02/01/15 Clemencia Bennett MD [facility] [place] [place] [address] Family Medicine 01/30/18 documented as of this encounter
--- OUTSIDE RECORDS SUMMARY | 2024-03-15 01:51 | XMS_ITS | Encounter Summary ---
Author Organization [facility] Address [address] [place] [address] Phone Care Team Providers Care Insurance Risk Surveyor Name Role Phone Laurence Luque MD Unavailable + [phone] Ronit Parish MD Primary Care Provider + [phone] Clemencia Bennett MD Unavailable [phone] Reason for Visit * Reason Onset Date Comments Medication Refill 12/15/2020 Encounter Details Date Type Department Care Team (Late st Contact Info) Description 12/15/[address] [facility] - Primary Care - [place] [address] [place] [address] Ronit Parish MD [address] [place] [address] Medication Refill Social History Tobacco [...] PM CDT documented as of this encounter Miscellaneous Notes * Telephone Encounter - Rebeca Francis RN - 12/15/2020 9:57 AM CDT Per [facility] pharmacy they do not fill this med at this location. Med pended for pt's other pharmacy of choice. documented in this encounter Plan of Treatment Upcoming Encounters Date Type Department Care Team (Late st Contact Info) Description 03/23/2024 1:00 PM CERAMIC ENGINEERING PROFESSOR Appointment [facility] Cardiology Services [address] [place] [address] Jose R Pearson MD [address] [place] [address] Discharge Disposition: Discharged to home or Selfcare 03/23/2024 2:30 PM CERAMIC ENGINEERING PROFESSOR Appointment [facility] [address] [place] [address] Jose R Pearson MD [address] [place] [address] Discharge Disposition: Discharged to home or Selfcare 03/30/2024 10:00 AM CERAMIC ENGINEERING PROFESSOR Office Visit [facility] Oncology Services [address] [place] [address] Jose R Pearson MD [address] [place] [address] Discharge Disposition: Discharged to home or Selfcare 03/30/2024 10:30 AM CERAMIC ENGINEERING PROFESSOR Lab [facility] [address] [place] [address] Discharge Disposition: Discharged to home or Selfcare 03/31/2024 1:00 PM CERAMIC ENGINEERING PROFESSOR Clinical Support [facility] Oncology Services [address] [place] [phone] Jose R Pearson MD [address] [place] [address] Discharge Disposition: Discharged to home or Selfcare 04/28/2024 1:30 PM CERAMIC ENGINEERING PROFESSOR Clinical Support [facility] Oncology Services [address] [place] [address] Discharge Disposition: Discharged to home or Selfcare documented as of this encounter Visit Diagnoses Diagnosis Obesity (BMI 30.0-34.9) Obesity, unspecified documented in this encounter Additional Health Concerns Assessment Noted Time PHQ-9 Depression Total Score: 0 04/01/19 9:00 AM CERAMIC ENGINEERING PROFESSOR documented as of this encounter Care Teams Insurance Risk Surveyor Relationship Specialty Start Date End Date Ronit Parish MD #[address] [phone] PCP - General Family Medicine 03/01/15 04/15/22 Laurence Luque MD #[address] [phone] Consulting Physician General Surgery 02/01/15 Clem[place] [address] Family Medicine 01/30/18 documented as of this encounter
--- OUTSIDE RECORDS SUMMARY | 2024-03-15 01:51 | XMS_ITS | Encounter Summary ---
Author Organization [facility] Address [address] [place] [address] Phone Care Team Providers Care Roof Plumber Name Role Phone Laurence Luque MD Unavailable + [phone] Ronit Parish MD Primary Care Provider + [phone] Clemencia Bennett MD Unavailable [phone] Reason for Visit * Reason Comments Cough Encounter Details Date Type Department Care Team (Late st Contact Info) Description 05/25/2019 5:13 PM CDT - 05/25/2019 7:18 PM CDT Emergency [facility] [address] [place] [address] Taiwo Martinez, ASSISTED LIVING MANAGER, SERVICE UNIT OPERATOR [address] [place] [address] Influenza A Discharge Disposition: Discharged to home or Selfcare [...] Sign Reading Time Taken Comments Blood Pressure 100/51 05/25/2019 7:08 PM CDT Pulse 94 05/25/2019 7:08 PM CDT Temperature 37.7 ??C (99.9 ??F) 05/25/2019 7:08 PM CD T Respiratory Rate 16 05/25/2019 7:08 PM CDT Oxygen Saturation 98% 05/25/2019 7:08 PM CDT Inhaled Oxygen Concentration - - Weight 68 kg (150 lb) 05/25/2019 5:05 PM CDT Height 154.9 cm (5' 1 ) 05/25/2019 5:05 PM CDT Body Mass Index 28.34 05/25/2019 5:05 PM CDT documented in this encounter Discharge Instructions * Discharge Instructions* Taiwo Martinez, ALENA, SERVICE UNIT OPERATOR - 05/25/2019 7:01 PM CDT Images from the original note were not included. PLEASE FOLLOW UP WITH YOUR PRIMARY DOCTOR REGARDING PULMONARY NODULE Influenza (Adult) Influenza is also called the flu. It's a viral illness that affects the air passages of your lungs.It's different from the common cold. The flu can easily be passed from one to person to another. Itmay be spread through the air by coughing and sneezing. Or it can be spread by touching the sick person and then touching your own eyes, nose, or mouth. The flu starts 1 to 3 days after you are exposed to the flu virus. It may last??for 1 to 2 weeks but sometimes people feel tired or fatigued for many weeks afterward. You usually don???t need to takeantibiotics unless you are at high risk for or have a complication . This might be an ear or sinus infection or pneumonia. Symptoms of the flu may be mild or severe. They can include extreme tiredness (wanting to stay in bed all day), chills, fevers, muscle aches, soreness with eye movement, headache, and a dry, hacking cough. Antiviral medicine for the flu is available by prescription. If you start taking it within 48 hours, it may help reduce how long your symptoms last and how severe they are. Your provider may do a test to find out if you have influenza and which strain you have. Home care Follow these guidelines when caring for yourself at home: ?? Stay away from cigarette smoke, whether yours or other people???s. ?? Acetaminophen or ibuprofen will help ease your fever, muscle aches, and headache. Don???t give aspirin to anyone younger than 18 who has the flu. This can cause a serious condition called José syndrome. ?? Nausea, loose stools, and loss of appetite are common with the flu. Eat light meals. Drink 6 to 8 glasses of liquids every day. Good choices are water, sport drinks, soft drinks without caffeine, juices, tea, and soup. Extra fluids will also help loosen secretions in your nose and lungs. ?? Fmcx-qvs-gvjqyrs cold medicines will not make the flu go away faster. But the medicines may helpwith coughing, sore throat, and congestion in your nose and sinuses. Don???t use a decongestant if you have high blood pressure. ?? Stay home until your fever has been gone for at least 24 hours without using medicine to reduce fever. Follow-up care Follow up with your healthcare provider, or as advised, if you are not getting better over the nextweek. If you are age 65 or older, talk with your provider about getting a pneumococcal vaccine every 5 years. You should also get this vaccine if you have chronic asthma or COPD. All adults should get a flu vaccine every fall. Ask your provider about this. When to seek medical advice Call your healthcare provider right away if you have the flu and any of these occur: ?? Cough with lots of colored mucus (sputum) or blood in your mucus ?? Chest pain, shortness of breath, wheezing, or trouble breathing ?? Severe headache, or face, neck, or ear pain ?? New rash??with fever ?? Fever of 100.4??F (38??C)??or higher, or as??directed by your healthcare provider ?? Confusion, behavior change, or seizure ?? Severe weakness or dizziness ?? You get a new??fever or cough after getting better for a few days Also call your provider if you have flu symptoms and have a weakened immune system or are taking medicines that can weaken your immune system. These include steroids and certain anti-inflammatory medicines. [employer] last reviewed this educational content on 12/15/2018 ?? [id number] The [employer]. [address] [place] [address]. All rights reserved. This information is not intended as a substitute for professional medical care. Always follow your healthcare professional's instructions. * Attachments The following attachments cannot be sent through Care Everywhere. * Pulmonary Nodule, Solitary (Belizean) documented in this encounter Medications at Time of Discharge Multiple Vitamin (MULTI-VITAMIN PO) Take 1 Tab by mouth daily. benzonatate (TESSALON) 100 MG Capsule Take 1 Cap by mouth 3 times daily as needed for Cough for up to 10 days. 30 Cap 05/25/2019 0 fluticasone (FLONASE) 50 MCG/ACT SuspensionIndication s:Acute URI 2 Sprays by Nasal route daily. Use in each nostril as directed. 1 Bottle 04/09/2019 0 metoprolol tartrate (LOPRESSOR) 25 MG TabletIndications:Es sential hypertension TAKE 1 TABLET BY MOUTH TWICE DAILY 180 Tab 1 02/15/2019 0 olopatadine (PATANOL) 0.1 % SolutionIndications: Allergic conjunctivitis of left eye Place 1 Drop in affected eye(s) 2 times daily as needed for Allergies. 5 mL 04/09/2019 0 omeprazole (PRILOSEC) 20 MG CAPSULE DELAYED RELEASEIndications:G astroesophageal reflux disease, esophagitis presence not specified Take 1 Cap by mouth daily as needed for Other. 90 Cap 01/30/2018 0 oseltamivir (TAMIFLU) 75 MG Capsule Take 1 Cap by mouth 2 times daily for 5 days. 10 Cap 05/25/2019 0 promethazine-dextrom ethorphan (PROMETHAZINE-DM) 6.25-15 MG/5ML Syrup Take 5 mL by mouth every 4 hours as needed for Cough. 240 mL 2019 0 documented as of this encounter ED Notes * Lisa Quiroga, RN - 05/25/2019 7:17 PM CDT Patient discharged. Discharge instructions and patient educational material reviewed with patient; questions and concerns addressed; patient verbalizes understanding, using teach back. Patient was given 2 prescriptions. Patient discharged per ambulatory mode with family as responsible libertarian. SL D/C'ed with Henrry cath intact. * Ilene Ernst RN - 05/25/2019 6:22 PM CDT Pt medicated per provider orders. Pt educated on intended effects and side effects of medication and verbalized understanding, able to provide teach back of education. Significant other at bedside. No questions or concerns at this time. NIBP and SPO2 monitors placed. * Ilene Ernst RN - 05/25/2019 6:11 PM CDT PT to radiology via stretcher. Will initiate IV and medicate PT when she returns. * Taiwo Martinez APN, SERVICE UNIT OPERATOR - 05/25/2019 5:26 PM CDT Chief Complaint Patient presents with ??? Cough Pt presents for evaluation of fever. She states last night she had a scratchy throat. This morning she woke from sleep with fever, chills, sore throat, nonproductive cough, vomiting 2/2 coughing spells, frontal headache and body aches. Her significant other states she has right sided abdominal painhowever she states that her pain is in her ribs. No nausea, shortness of breath, chest pain or diarrhea. No recent sick contacts. No recent travel. She did have a flu shot this year. Hx of breast cancer s/p bilateral mastectomy. She has not taken any medication for her symptoms. She does not smoke.Believes she is menopausal as LMP in 2019. No current facility-administered medications for this encounter. Current Outpatient Medications Medication Sig Dispense Refill ??? benzonatate (TESSALON) 100 MG Capsule Take 1 Cap by mouth 3 times daily as needed for Cough forup to 10 days. 30 Cap 0 ??? fluticasone (FLONASE) 50 MCG/ACT Suspension 2 Sprays by Nasal route daily. Use in each nostril as directed. 1 Bottle 0 ??? metoprolol tartrate (LOPRESSOR) 25 MG Tablet TAKE 1 TABLET BY MOUTH TWICE DAILY 180 Tab 1 ??? Multiple Vitamin (MULTI-VITAMIN PO) Take 1 Tab by mouth daily. ??? olopatadine (PATANOL) 0.1 % Solution Place 1 Drop in affected eye(s) 2 times daily as needed for Allergies. 5 mL 0 ??? omeprazole (PRILOSEC) 20 MG CAPSULE DELAYED RELEASE Take 1 Cap by mouth daily as needed for Other. (Patient not taking: Reported on 04/09/2019) 90 Cap 0 ??? oseltamivir (TAMIFLU) 75 MG Capsule Take 1 Cap by mouth 2 times daily for 5 days. 10 Cap 0 ??? promethazine-dextromethorphan (PROMETHAZINE-DM) 6.25-15 MG/5ML Syrup Take 5 mL by mouth every 4hours as needed for Cough. 240 mL 0 No Known Allergies Past Medical History Positives Diagnosis Date ??? Breast cancer (HCC) ??? Carcinoma (HCC) 2013 bilateral, right was cancer and left calcium ??? GERD (gastroesophageal reflux disease) ??? HTN (hypertension) Past Surgical History: Procedure Laterality Date ??? COLONOSCOPY N/A 09/30/2018 Procedure: COLONOSCOPY - HEMORRHOIDS, NEGATIVE TERMINAL ILEUM; Surgeon: Patrice Hickman DO; Location: [facility]; Service: Gastroenterology ??? MASTECTOMY Bilateral 2013 ??? TUBAL LIGATION Social History Socioeconomic History ??? Marital status: Spouse name: Not on file ??? Number of children: Not on file ??? Years of education: Not on file ??? Highest education level: Not on file Occupational History ??? Not on file Social Needs ??? Financial resource strain: Not on file ??? Food insecurity: Worry: Not on file Inability: Not on file ??? Transportation needs: Medical: Not on file Non-medical: Not on file Tobacco Use ??? Smoking status: Never Smoker ??? Smokeless tobacco: Never Used Substance and Sexual Activity ??? Alcohol use: Yes Alcohol/week: 0.0 oz Comment: rarely ??? Drug use: No ??? Sexual activity: Not on file Lifestyle ??? Physical activity: Days per week: Not on file Minutes per session: Not on file ??? Stress: Not on file Relationships ??? Social connections: Talks on phone: Not on file Gets together: Not on file Attends rastafarian service: Not on file Active member of club or organization: Not on file Attends meetings of clubs or organizations: Not on file Relationship status: Not on file ??? Intimate partner violence: Fear of current or ex partner: Not on file Emotionally abused: Not on file Physically abused: Not on file Forced sexual activity: Not on file Other Topics Concern ??? Not on file Social History Narrative ??? Not on file BP 114/53 Pulse 95 Temp (!) 102.1 ??F (38.9 ??C) (Tympanic) Resp 16 Ht 5' 1 (1.549 m) Wt150 lb (68 kg) LMP 05/22/2018 (Approximate) SpO2 96% BMI 28.34 kg/m?? Review of Systems Constitutional: Positive for chills, fatigue and fever. Negative for activity change and diaphoresis. HENT: Positive for sore throat. Negative for congestion, dental problem, drooling, ear discharge, ear pain, facial swelling, mouth sores, rhinorrhea, sinus pressure, sneezing, tinnitus and trouble swallowing. Eyes: Negative for photophobia, pain, discharge, redness, itching and visual disturbance. Respiratory: Positive for cough. Negative for chest tightness, shortness of breath, wheezing and stridor. Cardiovascular: Negative for chest pain, palpitations and leg swelling. Gastrointestinal: Positive for vomiting. Negative for abdominal distention, abdominal pain, blood in stool, constipation, diarrhea and nausea. Endocrine: Negative for cold intolerance, heat intolerance, polydipsia, polyphagia and polyuria. Genitourinary: Negative for decreased urine volume, difficulty urinating, dysuria, flank pain, frequency, hematuria, menstrual problem, pelvic pain, urgency, vaginal bleeding, vaginal discharge and vaginal pain. Musculoskeletal: Positive for arthralgias and myalgias. Negative for back pain, gait problem, jointswelling and neck pain. Reports generalized body aches Skin: Negative for color change, pallor, rash and wound. Allergic/Immunologic: Negative for immunocompromised state. Neurological: Positive for headaches. Negative for dizziness, tremors, seizures, speech difficulty,weakness, light-headedness and numbness. Hematological: Negative for adenopathy. Does not bruise/bleed easily. Psychiatric/Behavioral: Negative for agitation, confusion, decreased concentration, hallucinations and suicidal ideas. The patient is not nervous/anxious. Physical Exam Vitals signs and nursing note reviewed. Constitutional: General: She is not in acute distress. Appearance: She is well-developed. She is ill-appearing. She is not diaphoretic. HENT: Head: Normocephalic and atraumatic. Right Ear: External ear normal. Left Ear: External ear normal. Nose: Nose normal. Mouth/Throat: Pharynx: No oropharyngeal exudate. Eyes: General: No scleral icterus. Right eye: No discharge. Left eye: No discharge. Conjunctiva/sclera: Conjunctivae normal. Pupils: Pupils are equal, round, and reactive to light. Neck: Musculoskeletal: Normal range of motion and neck supple. Thyroid: No thyromegaly. Vascular: No JVD. Trachea: No tracheal deviation. Cardiovascular: Rate and Rhythm: Regular rhythm. Heart sounds: Normal heart sounds. No murmur. No friction rub. No gallop. Comments: Rate 105 Pulmonary: Effort: No respiratory distress. Breath sounds: No stridor. No wheezing or rales. Comments: Poor inspiratory effort Lungs bilaterally diminished Cough noted on exam Chest: Chest wall: No tenderness. Abdominal: General: Bowel sounds are normal. There is no distension. Palpations: Abdomen is soft. There is no mass. Tenderness: There is no abdominal tenderness. There is no guarding or rebound. Musculoskeletal: Normal range of motion. General: Tenderness present. Comments: Tenderness over right ribs(anterior, lateral and posterior) Lymphadenopathy: Cervical: No cervical adenopathy. Skin: General: Skin is warm and dry. Coloration: Skin is not pale. Findings: No erythema or rash. Neurological: Mental Status: She is alert and oriented to person, place, and time. Cranial Nerves: No cranial nerve deficit. Motor: No abnormal muscle tone. Coordination: Coordination normal. Deep Tendon Reflexes: Reflexes are normal and symmetric. Reflexes normal. Psychiatric: Behavior: Behavior normal. Thought Content: Thought content normal. Judgment: Judgment normal. Procedures Imaging Results XR CHEST 2 VIEWS (Final result) Result time 05/25/19 18:50:57 Final result by Ced Nagel DO (05/25/19 18:50:57) Impression: IMPRESSION: 1. No acute cardiopulmonary process is identified. 2. Apparent 9 mm nodule at the left lung base. Please see above. Narrative: EXAM DESCRIPTION: XR CHEST 2 VIEWS REASON FOR STUDY: Nonproductive cough with fever and body aches today. TECHNIQUE: Frontal and lateral radiographic views of the chest acquired. COMPARISON: Most recently 10/20/2013. FINDINGS: LUNGS/PLEURA: No consolidation, effusion or pneumothorax. There is a 9 mm nodule visible at the left lung base which may represent an anterior rib on end or overlying soft tissue nodularity. There does appear to be mastectomy changes on the lateral projection. If necessary, a short interval follow-up or routine, nonemergent chest CT would be suggested. HEART/MEDIASTINUM: Normal cardiomediastinal silhouette. No vascular congestion. HARDWARE/LINES/TUBES: None. BONES: No acute findings. OTHER: No other significant finding. THIS IS AN ELECTRONICALLY VERIFIED FINAL REPORT 05/25/2019 6:48 PM - Electronically signed by Ced Nagel D.O. 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 Influenza A 2. Pulmonary nodule 1904 her rate normalized with Tylenol and IV fluids. Influenza A positive. Advised follow up with PCP. She will follow up imaging regarding pulmonary nodule. I have personally reviewed all diagnosticdata with the patient. Patient is stable at time of discharge. The patient was instructed to followup outpatient as outlined on their discharge instructions for further evaluation and treatment. Instructions were provided to return for worsening symptoms. The patient verbalized understanding of care instructions and is in agreement with plan of care. The patient will be discharged on the following medications: tamiflu and tessalon Cosigned by Cody Graf MD at 05/28/2019 7:07 AM CDT * Rebeca Rich RN - 05/25/2019 5:15 PM CDT Pt states she needs to urinate prior to being connected to monitors. Pt provided urine cup and given gown to change into. * Rebeca Rich RN - 05/25/2019 5:10 PM CDT Pt to triage with c/o right sided rib/back pain x2 weeks that has slowly gotten worse, non-productive cough and fevers starting last night. Denies N/V/D. Denies chest pain or SOB. Pt reports her ribs/back hurt worse when coughing and deep breathing. Respirations even and non-labored in triage. Flu swab collected. documented in this encounter Plan of Treatment Upcoming Encounters Date Type Department Care Team (Late st Contact Info) Description 03/23/2024 1:00 PM TOWEL DISTRIBUTOR Appointment [facility] [address] [place] [address] Jose R Pearson MD [address] [place] [address] Discharge Disposition: Discharged to home or Selfcare 03/23/2024 2:30 PM TOWEL DISTRIBUTOR Appointment [facility] [address] [place] [address] Jose R Pearson MD [address] [place] [address] Discharge Disposition: Discharged to home or Selfcare 03/30/2024 10:00 AM TOWEL DISTRIBUTOR Office Visit [facility] [address] [place] [address] Jose R Pearson MD [address] [place] [address] Discharge Disposition: Discharged to home or Selfcare 03/30/2024 10:30 AM TOWEL DISTRIBUTOR Lab [facility] [address] [place] [address] Discharge Disposition: Discharged to home or Selfcare 03/31/2024 1:00 PM TOWEL DISTRIBUTOR Clinical Support [facility] [address] [place] [address] Jose R Pearson MD [address] [place] [address] Discharge Disposition: Discharged to home or Selfcare 04/28/2024 1:30 PM TOWEL DISTRIBUTOR Clinical Support [facility] [address] [place] [address] Discharge Disposition: Discharged to home or Selfcare documented as of this encounter Procedures Procedure Name Priority Date/Time Associated Diagnosis Comments XR CHEST 2 VIEWS STAT 05/25/2019 6:12 PM CDT POCT INFLUENZA A & B STAT 05/25/2019 5:19 PM CDT documented in this encounter Results * XR CHEST 2 VIEWS (05/25/2019 6:12 PM CDT) Anatomical Region Laterality Modality Chest N/A Digital Radiogra phy 05/25/2019 6:48 PM CDT Impressions 05/25/2019 6:50 PM CDT IMPRESSION: ?? 1. ??No acute cardiopulmonary process is identified. 2. ??Apparent 9 mm nodule at the left lung base. ??Please see above. Narrative 05/25/2019 6:50 PM CDT EXAM DESCRIPTION: ??XR CHEST 2 VIEWS REASON FOR STUDY: ??Nonproductive cough with fever and body aches today. TECHNIQUE: ??Frontal and lateral radiographic views of the chest acquired. COMPARISON: ??Most recently 10/20/2013. FINDINGS: ??LUNGS/PLEURA: No consolidation, effusion or pneumothorax. There is a 9 mm nodule visible at the left lung base which may represent an anterior rib on end or overlying soft tissue nodularity. ??There does appear to be mastectomy changes on the lateral projection. ??If necessary, a short interval follow-up or routine, nonemergent chest CT would be suggested. HEART/MEDIASTINUM: Normal cardiomediastinal silhouette. ??No vascular congestion. HARDWARE/LINES/TUBES: None. BONES: No acute findings. OTHER: No other significant finding. THIS IS AN ELECTRONICALLY VERIFIED FINAL REPORT 05/25/2019 6:48 PM - Electronically signed by Ced Nagel D.O. : D: ??05/25/2019 6:48 PM T: ??05/25/2019 6:48 PM Report ID: [id number] Reading Location: ??[id number] Procedure Note Ced Nagel, - 05/25/2019 EXAM DESCRIPTION: XR CHEST 2 VIEWS REASON FOR STUDY: Nonproductive cough with fever and body aches today. TECHNIQUE: Frontal and lateral radiographic views of the chest acquired. COMPARISON: Most recently 10/20/2013. FINDINGS: LUNGS/PLEURA: No consolidation, effusion or pneumothorax. There is a 9 mm nodule visible at the left lung base which may represent an anterior rib on end or overlying soft tissue nodularity. There does appear to be mastectomy changes on the lateral projection. If necessary, a short interval follow-up or routine, nonemergent chest CT would be suggested. HEART/MEDIASTINUM: Normal cardiomediastinal silhouette. No vascular congestion. HARDWARE/LINES/TUBES: None. BONES: No acute findings. OTHER: No other significant finding. THIS IS AN ELECTRONICALLY VERIFIED FINAL REPORT 05/25/2019 6:48 PM - Electronically signed by Ced Nagel D.O. : Report ID: [id number] Reading Location: [id number] IMPRESSION: 1. No acute cardiopulmonary process is identified. 2. Apparent 9 mm nodule at the left lung base. Please see above. 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 Pass 05/25/2019 5:19 PM CDT Cody Graf MD POINT OF CARE TESTING (MANU AL) Final Result documented in this encounter Visit Diagnoses Diagnosis Influenza A- Primary Influenza with other respiratory manifestations Pulmonary nodule Solitary pulmonary nodule documented in this encounter Administered Medications Inactive Administered Medications - up to 3 most recent administrations Medication Order MAR Action Action Date Dose Rate Site 0.9 % sodium chloride solution at 1,000 mL/hr, Intravenous, ONCE, 1 dose, On 05/25/19 at 1800 New Bag 05/25/2019 6:21 PM CDT 2,000 mL 1000 mL/hr acetaminophen (TYLENOL) tablet 650 mg 650 mg, Oral, ONCE, 1 dose, On 05/25/19 at 1800, Maximum dose of acetaminophen is 4000 mg from all sources in 24 hours. Given 05/25/2019 6:21 PM CDT 650 mg documented in this encounter Active and Recently Administered Medications Due to Daylight Saving Time, this section may contain times in both TOWEL DISTRIBUTOR and CDT. Scheduled Medication Order 05/23/2019 05/24/2019 05/25/2019 0.9 % sodium chloride solution (COMPLETED) at 1,000 mL/hr, Intravenous, ONCE, 1 dose, On 05/25/19 at 1800 1820 (New Bag - Prov ider: Ilene Ernst RN)1915 (Stopped - Provider: Lisa Quiroga RN) acetaminophen (TYLENOL) tablet 650 mg (COMPLETED) 650 mg, Oral, ONCE, 1 dose, On 05/25/19 at 1800, Maximum dose of acetaminophen is 4000 mg from all sources in 24 hours. 182 (Given - Provid er: Ilene M Main, RN) documented in this encounter Additional Health Concerns Assessment Noted Time PHQ-9 Depression Total Score: 0 04/01/19 20 9:00 AM TOWEL DISTRIBUTOR documented as of this encounter Care Teams Roof Plumber Relationship Specialty Start Date End Date Ronit Parish MD #[address] [phone] PCP - General Family Medicine 03/01/15 04/15/22 Laurence Luque MD #[address] [address] Consulting Physician General Surgery 02/01/15 Clemencia Bennett MD [address] [place], [place] [id number] Family Medicine 01/30/18 documented as of this encounter
--- OUTSIDE RECORDS SUMMARY | 2024-03-15 01:51 | XMS_ITS | Encounter Summary ---
Author Organization [facility] [employer] [facility] Care Team Providers Care Business Applications Specialist Name Role Phone Laurence Luque MD Unavailable + [phone] Ronit Parish MD Primary Care Provider + [phone] Clemencia Bennett MD Unavailable [phone] Encounter Details Date Type Department Care Team (Latest Contact Info) Description 12/31/2019 Travel Social History Tobacco Use Types Packs/Day [...] st Contact Info) Description 03/23/2024 1:00 PM LOGISTICS SYSTEM ENGINEER Appointment [facility] Cardiology Services 1 [place] [address] Jose R Pearson MD [address] [place] [address] Discharge Disposition: Discharged to home or Selfcare 03/23/2024 2:30 PM LOGISTICS SYSTEM ENGINEER Appointment [facility] CT 1 [facility] [place] [address] Jose R Pearson MD 0 [place] [address] Discharge Disposition: Discharged to home or Selfcare 03/30/2024 10:00 AM LOGISTICS SYSTEM ENGINEER Office Visit [facility] Oncology Services [address] [place] [address] Jose R Pearson MD [address] [place] [address] Discharge Disposition: Discharged to home or Selfcare 03/30/2024 10:30 AM LOGISTICS SYSTEM ENGINEER Lab [facility] Oncology Services 0 [place] [address] Discharge Disposition: Discharged to home or Selfcare 03/31/2024 1:00 PM LOGISTICS SYSTEM ENGINEER Clinical Support [facility] Oncology Services [address] [place] [address] Jose R Pearson MD [address] [place] [address] Discharge Disposition: Discharged to home or Selfcare 04/28/2024 1:30 PM LOGISTICS SYSTEM ENGINEER Clinical Support [facility] Oncology Services [address] [place] [address] Discharge Disposition: Discharged to home or Selfcare documented as of this encounter Visit Diagnoses Not on filedocumented in this encounter Additional Health Concerns Assessment Noted Time PHQ-9 Depression Total Score: 0 04/01/19 9:00 AM LOGISTICS SYSTEM ENGINEER documented as of this encounter Care Teams Business Applications Specialist Relationship Specialty Start Date End Date Ronit Parish MD #[address] [address] PCP - General Family Medicine 03/01/15 04/15/22 Laurence Luque MD #[address] [phone] Consulting Physician General Surgery 02/01/15 Clemencia Bennett MD [address] [place] [place], [place] [id number] Family Medicine 01/30/18 documented as of this encounter
--- OUTSIDE RECORDS SUMMARY | 2024-03-15 01:51 | XMS_ITS | Encounter Summary ---
Author Organization [facility] [employer] [facility] Care Team Providers Care Document Specialist Name Role Phone Laurence Luque MD Unavailable + [phone] Ronit Parish MD Primary Care Provider + [phone] Clemencia Bennett MD Unavailable [phone] Encounter Details Date Type Department Care Team (Latest Contact Info) Description 09/23/2019 Travel Social History Tobacco Use Types Packs/Day [...] st Contact Info) Description 03/23/2024 1:00 PM ENGAGEMENT SPECIALIST Appointment [facility] Cardiology Services 1 [place] [address] Jose R Pearson MD [address] [place] [address] Discharge Disposition: Discharged to home or Selfcare 03/23/2024 2:30 PM ENGAGEMENT SPECIALIST Appointment [facility] [address] [facility] [place] [address] Jose R Pearson MD 0 [place] [address] Discharge Disposition: Discharged to home or Selfcare 03/30/2024 10:00 AM ENGAGEMENT SPECIALIST Office Visit [facility] Oncology Services [address] [place] [address] Jose R Pearson MD [address] [place] [address] Discharge Disposition: Discharged to home or Selfcare 03/30/2024 10:30 AM ENGAGEMENT SPECIALIST Lab [facility] Oncology Services [address] [place] [address] Discharge Disposition: Discharged to home or Selfcare 03/31/2024 1:00 PM ENGAGEMENT SPECIALIST Clinical Support [facility] Oncology Services [address] [place] [address] Jose R Pearson MD [address] [place] [address] Discharge Disposition: Discharged to home or Selfcare 04/28/2024 1:30 PM ENGAGEMENT SPECIALIST Clinical Support [facility] Oncology Services [address] [place] [address] Discharge Disposition: Discharged to home or Selfcare documented as of this encounter Visit Diagnoses Not on filedocumented in this encounter Additional Health Concerns Assessment Noted Time PHQ-9 Depression Total Score: 0 04/01/19 9:00 AM ENGAGEMENT SPECIALIST documented as of this encounter Care Teams Document Specialist Relationship Specialty Start Date End Date Ronit Parish MD #[address] [address] PCP - General Family Medicine 03/01/15 04/15/22 Laurence Luque MD #[address] [phone] Consulting Physician General Surgery 02/01/15 Clemencia Bennett MD [address] [place], [place] [address] Family Medicine 01/30/18 documented as of this encounter
--- OUTSIDE RECORDS SUMMARY | 2024-03-15 01:51 | XMS_ITS | Encounter Summary ---
Author Organization [facility] Care Team Providers Care Screw Cutter Name Role Phone Laurence Luque MD Unavailable + [phone] Ronit Parish MD Primary Care Provider + [phone] Clemencia Bennett MD Unavailable [phone] Encounter Details Date Type Department Care Team (Latest Contact Info) Description 04/06/2021 Travel Social History Tobacco Use Types Packs/Day [...] COVID-19? No / Unsure 04/06/2021 8:26 AM ACCOUNT SUPPORT ANALYST documented as of this encounter Plan of Treatment Upcoming Encounters Date Type Department Care Team (Late st Contact Info) Description 03/23/2024 1:00 PM ACCOUNT SUPPORT ANALYST Appointment [facility] Cardiology Services 1 [place] [address] Jose R Pearson MD [address] [place] [address] Discharge Disposition: Discharged to home or Selfcare 03/23/2024 2:30 PM ACCOUNT SUPPORT ANALYST [facility]ment [facility] [address] [place] [address] Jose R Pearson MD [address] [place] [address] Discharge Disposition: Discharged to home or Selfcare 03/30/2024 10:00 AM ACCOUNT SUPPORT ANALYST Office Visit [facility] Oncology Services 0 [place] [address] Jose R Pearson MD [address] [place] [address] Discharge Disposition: Discharged to home or Selfcare 03/30/2024 10:30 AM ACCOUNT SUPPORT ANALYST Lab [facility] Oncology Services [address] [place] [address] Discharge Disposition: Discharged to home or Selfcare 03/31/2024 1:00 PM ACCOUNT SUPPORT ANALYST Clinical Support [facility] Oncology Services 0 [place] [address] Jose R Pearson MD [address] [place] [address] Discharge Disposition: Discharged to home or Selfcare 04/28/2024 1:30 PM ACCOUNT SUPPORT ANALYST Clinical Support [facility] Oncology Services [address] [place] [address] Discharge Disposition: Discharged to home or Selfcare documented as of this encounter Visit Diagnoses Not on filedocumented in this encounter Additional Health Concerns Assessment Noted Time PHQ-9 Depression Total Score: 0 04/01/19 9:00 AM ACCOUNT SUPPORT ANALYST documented as of this encounter Care Teams Screw Cutter Relationship Specialty Start Date End Date Ronit Parish MD #[address] [address] PCP - General Family Medicine 03/01/15 04/15/22 Laurence Luque MD #[address] [address] Consulting Physician General Surgery 02/01/15 Clemencia Bennett MD [address] [place] [address] Family Medicine 01/30/18 documented as of this encounter
--- OUTSIDE RECORDS SUMMARY | 2024-03-15 01:51 | XMS_ITS | Encounter Summary ---
Author Organization [facility] Address [address] [place] [address] Phone Care Team Providers Care Mailroom Clerk Name Role Phone Laurence Luque MD Unavailable + [phone] Ronit Parish MD Primary Care Provider + [phone] Clemencia Bennett MD Unavailable [phone] Reason for Visit * Reason Comments Hypertension 6 mo f/u Encounter Details Date Type Department Care Team (Latest Contact Info) Description 09/30/2019 10:45 AM CDT Office Visit [facility] - Primary Care - [place] [address] [place] [address] Ronit Parish MD [address] [place] [address] Essential hypertension (Primary Dx); Gastroesophageal reflux disease, esophagitis presence not specified; Allergic rhinitis, unspecified seasonality, unspecified trigger; Pulmonary nodule; Hyperlipidemia, unspecified hyperlipidemia type; IFG (impaired fasting glucose); Obesity (BMI 30.0-34.9) Discharge Disposition: Discharged to [...] Sign Reading Time Taken Comments Blood Pressure 132/72 09/30/2019 10:44 AM CDT Pulse 72 09/30/2019 10:44 AM CDT Temperature 36.7 ??C (98 ??F) 09/30/2019 10:44 AM CDT Respiratory Rate 16 09/30/2019 10:44 AM CDT Oxygen Saturation 95% 09/30/2019 10:44 AM CDT Inhaled Oxygen Concentration - - Weight 76.8 kg (169 lb 6.4 oz) 09/30/2019 10:44 AM CDT Height 154.9 cm (5' 1 ) 09/30/2019 10:44 AM CDT Body Mass Index 32.01 09/30/2019 10:44 AM CDT documented in this encounter Progress Notes * Leyla Unger, LIEUTENANT/DEPUTY - 09/30/2019 10:45 AM CDT Angie Reed, 49 y.o., female is here for Hypertension (6 mo f/u) Medication Refills: Patient reports/denies need for medication refills. Orders Pended: no Requested Prescriptions No prescriptions requested or ordered in this encounter Home Medications Medication Sig Start Date End Date Taking? Authorizing Provider fluticasone (FLONASE) 50 MCG/ACT Suspension 2 Sprays by Nasal route daily. Use in each nostril as directed. 04/09/19 Yes Ronit Parish MD metoprolol tartrate (LOPRESSOR) 25 MG Tablet Take 1 tablet by mouth twice daily 08/23/19 Yes Ronit Parish MD Multiple Vitamin (MULTI-VITAMIN PO) Take 1 Tab by mouth daily. Yes ProviderErnesto MD olopatadine (PATANOL) 0.1 % Solution Place 1 Drop in affected eye(s) 2 times daily as needed for Allergies. 04/09/19 Yes Ronit Parish MD omeprazole (PRILOSEC) 20 MG CAPSULE DELAYED RELEASE Take 1 Cap by mouth daily as needed for Other. 01/30/18 Yes Ronit Parish MD promethazine-dextromethorphan (PROMETHAZINE-DM) 6.25-15 MG/5ML Syrup Take 5 mL by mouth every 4 hours as needed for Cough. Patient not taking: Reported on 09/30/2019 04/12/19 Ronit Parish MD There are no discontinued [...] have been addressed with the patient today: Pap * Ronit Parish MD - 09/30/2019 10:45 AM CDT Subjective Chief Complaint Patient presents with ??? Hypertension 6 mo f/u History of Present Illness Angie presents here for a 6-month follow-up for her chronic medical conditions. Blood pressure is well controlled today at 132/70 mmHg. She continues to take Metoprolol 25 mg b.i.d. She wants to be started on a weight loss medication. Her current BMI is 32.01. Apparently her friend uses phentermine, so she wants to try it also. She denies having any prior history of seizure. Herblood pressure is well controlled. She does not have any prior history of glaucoma, PR, arrhythmia,or anxiety. Mild hypothyroidism. I did an EKG in the office which showed normal sinus rhythm. I will go ahead and start her on phentermine 50 mg once daily. The goal is to lose 5% in the 1st 3 months which would be 8 pounds. Low-fat, low carb diet and exercise recommended. Her recent labs done on 09/23/2019 were reviewed. CBC looks good, hemoglobin was 14.4. CMP shows a fasting blood glucose of 103, which is impaired. Total cholesterol was slightly high at 233, but HDLis good at 113. Thyroid functions are normal. IJN: [id number] ROS: RESPIRATORY: Patient denies shortness of breath, chronic cough or other respiratory problems. CARDIAC: Patient denies chest pain, chest pressure, palpitations, diaphoresis, chest pain radiating into arms or neck. PMH/PSH/FH/SH/medications/allergies/health maintenance entries were reviewed with patient and updated. Objective: Physical Exam Vitals: 09/30/19 1044 BP: 132/72 Pulse: 72 Resp: 16 Temp: 98 ??F (36.7 ??C) TempSrc: Temporal SpO2: 95% Weight: 169 lb 6.4 oz (76.8 kg) Height: 5' 1 (1.549 m) Body mass index is 32.01 kg/m??. Constitutional: She appears well-developed and well-nourished. No distress. HENT: Head: Atraumatic, normocephalic. Cardiovascular: Normal rate, regular rhythm, normal heart sounds and intact distal pulses. No murmur/rubs/gallops heard. Pulmonary/Chest: clear to auscultation bilaterally, no crepts or wheezes. Musculoskeletal/extremities: no pedal edema, no calf tenderness. Skin: Skin is warm and dry. Assessment and Plan Angie Reed presents here for Hypertension (6 mo f/u) 1. Essential hypertension - continue Toprol 25 mg b.i.d. 2. Gastroesophageal reflux disease, esophagitis presence not specified - continue omeprazole 20 mg q.d. 3. Allergic rhinitis, unspecified seasonality, unspecified trigger - continue Flonase 4. Pulmonary nodule - repeat XR CHEST 2 VIEWS 5. Hyperlipidemia, unspecified hyperlipidemia type 6. IFG (impaired fasting glucose) 7. Obesity (BMI 30.0-34.9) - EKG 12 LEAD - today showed normal sinus rhythm - start Phentermine HCl 15 MG q.d. - goal to lose 5% in the first 3 months - 8 lb Followup: Return in about 3 months (around 12/31/2019) for recheck weight. The patient understood the plan, questions were answered and AVS including the updated medication list was provided to the patient. Documentation for this visit on 09/30/19 was completed using a template. I have seen and examined the patient. Everything documented was personally performed at this visit with the necessary additions, deletions and changes made as appropriate. Ronit Parish MD * Claudine Long CMA - 09/30/2019 10:45 AM CDT EKG performed in office by Claudine Long [facility] orders of Lauren Barber [facility]. documented in this encounter Plan of Treatment Upcoming Encounters Date Type Department Care Team (Late st Contact Info) Description 03/23/2024 1:00 PM HPLC CHEMIST Appointment [facility] Cardiology Services 1 [place] [address] Jose R Pearson MD [address] [place] [address] Discharge Disposition: Discharged to home or Selfcare 03/23/2024 2:30 PM HPLC CHEMIST [facility]ment [facility] [address] [place] [address] Jose R Pearson MD [address] [place] [address] Discharge Disposition: Discharged to home or Selfcare 03/30/2024 10:00 AM HPLC CHEMIST [facility] [address] [place] [address] Jose R Pearson MD [address] [place] [address] Discharge Disposition: Discharged to home or Selfcare 03/30/2024 10:30 AM HPLC CHEMIST Lab [facility] Oncology Services [address] [place] [address] Discharge Disposition: Discharged to home or Selfcare 03/31/2024 1:00 PM HPLC CHEMIST Clinical Support [facility] Oncology Services [address] [place] [address] [place] [address] [place] [address] Discharge Disposition: Discharged to home or Selfcare 04/28/2024 1:30 PM HPLC CHEMIST Clinical Support [facility] Oncology Services [address] [place] [address] Discharge Disposition: Discharged to home or Selfcare documented as of this encounter Procedures Procedure Name Priority Date/Time Associated Diagnosis Comments XR CHEST 2 VIEWS Routine 09/30/2019 11:5 9 AM CDT Pulmonary nodule EKG 12 LEAD Routine 09/30/2019 11:31 AM CDT Obesity (BMI 30.0-34.9) documented in this encounter Results * XR [...] AM T: ??10/01/2019 11:01 AM Report ID: [id number] Reading Location: [id number] Procedure Note Jon Murdock MD - 10/08/2019 [...] Electronically signed by Jon Murdock M.D. NC: LIVAN Report ID: [id number] Reading Location: [id number] IMPRESSION: No acute cardiopulmonary abnormality. us Ronit Parish MD IMG DIAGNOSTIC ORDERABLES Fi nal Result * EKG 12 LEAD (09/30/2019 11:31 AM CDT) Ventricular Rate 67 BPM EXTERNAL EKG Atrial Rate 67 BPM EXTERNAL EKG P-R Interval 144 ms EXTERNAL EKG QRS Duration 76 ms EXTERNAL EKG Q-T Duration 420 ms EXTERNAL EKG QTC CALCULATION 443 ms EXTERNAL EKG P [place] 56 degrees EXTERNAL EKG R [place] 48 degrees EXTERNAL EKG T [place] 48 degrees EXTERNAL EKG 09/30/2019 11:3 1 AM CDT Impressions EXTERNAL EKG - 10/01/2019 6:14 PM CDT Normal sinus rhythm Normal ECG No previous ECGs available Confirmed by Gorge Blackman () on 10/01/2019 6:14:52 PM Narrative Procedure Note Katherine Blackman MD - 10/01/2019 IMPRESSION: Normal sinus rhythm Normal ECG No previous ECGs available Confirmed by Gorge Blackman () on 10/01/2019 6:14:52 PM us Ronit Parish MD IMG ECG ORDERABLES Final Res ult EXTERNAL EKG documented in this encounter Visit Diagnoses Diagnosis Essential hypertension- Primary Unspecified essential hypertension Gastroesophageal reflux disease, esophagitis presence not specified Allergic rhinitis, unspecified seasonality, unspecified trigger Pulmonary nodule Solitary pulmonary nodule Hyperlipidemia, unspecified hyperlipidemia type IFG (impaired fasting glucose) Impaired fasting glucose Obesity (BMI 30.0-34.9) Obesity, unspecified documented in this encounter Additional Health Concerns Assessment Noted Time PHQ-9 Depression Total Score: 0 04/01/19 20 9:00 AM HPLC CHEMIST documented as of this encounter Care Teams Mailroom Clerk Relationship Specialty Start Date End Date Ronit Parish MD #[address] [address] PCP - General Family Medicine 03/01/15 04/15/22 Laurence Luque MD #[address] [address] Consulting Physician General Surgery 02/01/15 Clemencia Bennett MD [address] [place] [address] Family Medicine 01/30/18 documented as of this encounter
--- OUTSIDE RECORDS SUMMARY | 2024-03-15 01:51 | XMS_ITS | Encounter Summary ---
Author Organization [facility] Address [address] [place] [address] Phone Care Team Providers Care Motion Picture Set Up Worker Name Role Phone Laurence Luque MD Unavailable + [phone] Ronit Parish MD Primary Care Provider + [phone] Clemencia Bennett MD Unavailable [phone] Reason for Visit * Reason Comments Medication Refill Encounter Details Date Type Department Care Team (Late st Contact Info) Description 08/22/2019 Refill [facility] [address] [place] [address] Ronit Parish MD [address] [place] [address] Medication Refill Social History Tobacco [...] encounter Miscellaneous Notes * Telephone Encounter - Renée John RN - 08/23/2019 10:10 AM CDT Medication(s) refilled and signed per [facility] Chronic Medication Refill Standing Order for Pediatric and Adult Patients. documented in this encounter Plan of Treatment Upcoming Encounters Date Type Department Care Team (Late st Contact Info) Description 03/23/2024 1:00 PM PHOTOGRAPHER ASSISTANT Appointment [facility] Cardiology Services 1 [place] [address] Jose R Pearson MD 0 [place] [address] Discharge Disposition: Discharged to home or Selfcare 03/23/2024 2:30 PM PHOTOGRAPHER ASSISTANT Appointment [facility] [address] [place] [address] Jose R Pearson MD [address] [place] [address] Discharge Disposition: Discharged to home or Selfcare 03/30/2024 10:00 AM PHOTOGRAPHER ASSISTANT Office Visit [facility] Oncology Services [address] [place] [address] Jose R Pearson MD [address] [place] [address] Discharge Disposition: Discharged to home or Selfcare 03/30/2024 10:30 AM PHOTOGRAPHER ASSISTANT Lab [facility] Oncology Services [address] [place] [address] Discharge Disposition: Discharged to home or Selfcare 03/31/2024 1:00 PM PHOTOGRAPHER ASSISTANT Clinical Support [facility] Oncology Services [address] [place] [address] Jose R Pearson MD [address] [place] [address] Discharge Disposition: Discharged to home or Selfcare 04/28/2024 1:30 PM PHOTOGRAPHER ASSISTANT Clinical Support [facility] Oncology Services [address] [place] [address] Discharge Disposition: Discharged to home or Selfcare documented as of this encounter Visit Diagnoses Diagnosis Essential hypertension Unspecified essential hypertension documented in this encounter Additional Health Concerns Assessment Noted Time PHQ-9 Depression Total Score: 0 04/01/19 20 9:00 AM PHOTOGRAPHER ASSISTANT documented as of this encounter Care Teams Motion Picture Set Up Worker Relationship Specialty Start Date End Date Ronit Parish MD #[address] [address] PCP - General Family Medicine 03/01/15 04/15/22 Laurence Luque MD #[address] [address] Consulting Physician General Surgery 02/01/15 Clem[place] [address] Family Medicine 01/30/18 documented as of this encounter
== END 2024-03-08 10:25 | disposition home or self-care (01) ==
PROVIDERS: PCP Family Medicine; Visit Provider Obstetrics & Gynecology
PROC: (CPT 49320; principal; 2024-03-08 07:30)
DX: Z40.02 Encounter for prophylactic removal of ovary(s) (principal); N83.299 Other ovarian cyst, unspecified side; D27.9 Benign neoplasm of unspecified ovary; Z85.3 Personal history of malignant neoplasm of breast; I10 Essential (primary) hypertension; E78.5 Hyperlipidemia, unspecified
CPT/HCPCS: 58661; 88305; A9270; J1100; J1885; J2003; J2250; J2405; J2704; J3010; J7030; J7120